=== PATIENT | female | born 1970 | race American Indian/Alaskan Native ===

== ENCOUNTER 2017-02-09 14:35 | Inpatient (IN) | payer MEDICARE, OTHER ==
[2017-02-09 15:18] VITALS: BMI 43.2
--- NOTE | 2017-02-09 15:29 | ED PDOC ---
Arrival/HPI - General Chief Complaint: Cough, Cold, Congestion Time Seen by Provider: 02/09/17 14:36 Historian: Patient - History of Present Illness Narrative History of Present Illness (Text): 02/09/17 15:22 46 y/o female, pmh including htn/hyperlipidemia/dm/asthma, nkda, c/o cough on and off x 3 weeks. Pt. stated that she has chronic asthma, been coughing on and off for the past 3 weeks, completed 1 course of z-pack, scheduled to see the brick tender but not until next week, coughing been more severe for the past 3 days, 2 episodes of bloody stain phelgm but resolved today, no night sweat, no dizziness, no chest pain or palpitation, no recent traveling for the past 4 weeks, no other medical or psychological complaints. Past Medical History - Provider Review Nursing Documentation Reviewed: Yes - Infectious Disease Hx of Infectious Diseases: None - Cardiac Hx Cardiac Disorders: No Hx Angina: No Hx Cardiac Arrhythmia: No Hx Circulatory Problems: No Hx Congestive Heart Failure: No Hx Heart Murmur: No Hx Heart Transplant: No Hx Hypertension: No Hx Internal Defibrillator: No Hx Mitral Valve Prolapse: No Hx Pacemaker: No Hx Peripheral Edema: No Hx Peripheral Vascular Disease: No - Pulmonary Hx Respiratory Disorders: Yes Hx Asthma: Yes Hx Bronchitis: Yes Hx Chronic Obstructive Pulmonary Disease (COPD): No Hx Emphysema: No Hx Pneumonia: No Hx Respiratory Aspiration: No Hx Respiratory Tract Infection: No Hx Sleep Apnea: No Hx Tuberculosis: No - Neurological Hx Neurological Disorder: No Hx Alzheimer's Disease: No HX Cerebrovascular Accident: No Hx Dementia: No Hx Dizziness: No Hx Meningitis: No Hx Migraine: Yes Hx Parkinson's Disease: No Hx Seizures: No Hx Transient Ischemic Attacks (TIA): No - HEENT Hx HEENT Disorder: No Hx Blind: No Hx Cataracts: No Hx Deafness: No Hx Difficulty Chewing: No Hx Epistaxis: No Hx Glaucoma: No Hx Macular Degeneration: No - Renal Hx Renal Disorder: No Hx Dialysis: No Hx Kidney Stones: No Hx Neurogenic Bladder: No Hx Pyelonephritis: No Hx Renal Cancer: No Hx Renal Failure: No - Endocrine/Metabolic Hx Endocrine Disorders: No Hx Adrenal Cancer: No Hx Diabetes Insipidus: No Hx Diabetes Mellitus Type 1: No Hx Diabetes Mellitus Type 2: Yes Hx Hyperthyroidism: No Hx Hypothyroidism: No Hx Systemic Lupus Erythematosus: Yes - Hematological/Oncological Hx Blood Disorders: No Hx AIDS: No Hx Anemia: No Hx Cancer: No Hx Chemotherapy: No Hx Cirrhosis: No Hx Hemophilia: No Hx Hepatitis A: No Hx Hepatitis B: No Hx Hepatitis C: No Hx Metastasis: No Hx Shingles: No Hx Sickle Cell Disease: No Hx Unexplained Bleeding: No - Integumentary Hx Dermatological Disorder: No Hx Basal Cell Carcinoma: No Hx Eczema: No Hx Melanoma: No Hx Psoriasis: No Hx Squamous Cell Carcinoma: No - Musculoskeletal/Rheumatological Hx Musculoskeletal Disorders: No Hx Arthritis: No Hx Back Pain: Yes Hx Degenerative Joint Disease: Yes Hx Falls: Yes Hx Fractures: No Hx Gout: No Hx Herniated Disk: No Hx Myasthenia Gravis: No Hx Osteoarthritis: No Hx Osteomyelitis: No Hx Osteoporosis: No Hx Rhabdomyolysis: No Hx Spinal Stenosis: Yes Hx Unsteady Gait: No - Gastrointestinal Hx Gastrointestinal Disorders: No Hx Colostomy: No Hx Crohn's Disease: No Hx Diverticulitis: No Hx Gall Bladder Disease: No Hx Gastroesophageal Reflux: No Hx Ileostomy: No Hx Liver Failure: No Hx Pancreatitis: No HX Swallowing Problems: No - Genitourinary/Gynecological Hx Genitourinary Disorders: No Hx Hematuria: No Hx Incontinence: No Hx Sexually Transmitted Diseases: No - Psychiatric Hx Psychophysiologic Disorder: No Hx Anxiety: No Hx Bipolar Disorder: No Hx Depression: No Hx Emotional Abuse: No Hx Hallucinations: No Hx Panic Disorder: No Hx Post Traumatic Stress Disorder: No Hx Psychosis: No Hx Physical Abuse: No Hx Schizophrenia: No Hx Sexual Abuse: No Hx Substance Use: No - Surgical History Hx Amputation: No Hx Appendectomy: No Hx Cardiac Catheterization: No Hx Cholecystectomy: No Hx Coronary Stent: No Hx Gastric Bypass Surgery: No Hx Hysterectomy: No Hx Joint Replacement: No Hx Kidney Transplant: No Hx Liver Transplant: No Hx Mastectomy: No Hx Musculoskeletal Surgery: No Hx Open Heart Surgery: No Hx Orthopedic Surgery: No Hx Splenectomy: No Hx Valve Replacement: No Other/Comment: ectopic with D&C - Anesthesia Hx Anesthesia: Yes Hx Anesthesia Reactions: No Family/Social History - Physician Review Nursing Documentation Reviewed: Yes Family/Social History: Unknown Family HX Smoking Status: Never Smoked Hx Alcohol Use: Yes Hx Substance Use: No Allergies/Home Meds Allergies/Adverse Reactions: Allergies No Known Allergies Allergy (Verified 02/09/17 15:06) Home Medications: Home Meds Medication Instructions Recorded Confirmed Albuterol/Ipratropium [Combivent 1 puff IH QID PRN 06/09/16 02/09/17 Respimat] Amitriptyline HCl [Amitriptyline 100 mg PO DAILY 06/09/16 02/09/17 HCl] Atorvastatin [Lipitor] 20 mg PO HS 06/09/16 02/09/17 Azilsartan Medoxomil [Edarbi] 80 mg PO DAILY 06/09/16 02/09/17 Colchicine [Colcrys] 0.6 mg PO DAILY 06/09/16 02/09/17 Diclofenac Sodium [Voltaren] 1 % TOP TID 06/09/16 02/09/17 Dulaglutide [Trulicity] 1.5 mg SC QWK 06/09/16 02/09/17 Empagliflozin [Jardiance] 10 mg PO DAILY 06/09/16 02/09/17 Furosemide [Lasix] 40 mg PO DAILY 06/09/16 02/09/17 Gabapentin Enacarbil [Horizant] 600 mg PO BID 06/09/16 02/09/17 Hydroxychloroquine Sulfate 200 mg PO BID 06/09/16 02/09/17 Insulin Glargine,Hum.rec.anlog 300 unit SQ DIN 06/09/16 02/09/17 [Issaculeidy Mcdonald] Insulin Lispro [Humalog Kwikpen 20 units INJ DAILY 06/09/16 02/09/17 U-100] Linagliptin/Metformin HCl 1 tab PO BID 06/09/16 02/09/17 [Jentadueto 2.5 mg-1000 mg] Olopatadine HCl [Pazeo] 0.7 drop BOTHEYES DAILY 06/09/16 02/09/17 Pyridoxine HCl (Vitamin B6) 25 mg PO DAILY 06/09/16 02/09/17 [B-Roseanne] Stiolto Respimat Inhal [place] 2.5 mcg INH DAILY 06/09/16 02/09/17 acetaZOLAMIDE [Acetazolamide] 500 mg PO BID 06/09/16 02/09/17 diltiaZEM CD [Cardizem CD] 120 mg PO DAILY 06/09/16 02/09/17 Review of Systems - Review of Systems Constitutional: absent: Fatigue, Fevers Eyes: absent: Vision Changes ENT: absent: Voice Changes, Sore Throat, Rhinorrhea Respiratory: Cough, Sputum. absent: Wheezing Cardiovascular: absent: Chest Pain Gastrointestinal: absent: Abdominal Pain, Diarrhea, Nausea, Vomiting Skin: absent: Rash, Pruritis, Skin Lesions, Laceration, Abscess, Ulcer, Cellulitis Neurological: absent: Headache, Dizziness, Focal Weakness, Gait Changes Physical Exam Vital Signs Reviewed: Yes Vital Signs Temp Pulse Resp BP Pulse Ox 02/09/17 18:22 105 H 18 118/71 100 02/09/17 16:23 109 H 18 121/79 100 02/09/17 15:06 98.7 F 109 H 21 122/88 96 Temperature: Afebrile Blood Pressure: Normal Pulse: Tachycardic Appearance: Positive for: Well-Appearing, Non-Toxic, Comfortable Mental Status: Positive for: Alert and Oriented X 3 - Systems Exam Head: Present: Atraumatic, Normocephalic Pupils: Present: PERRL Extroacular Muscles: Present: EOMI Conjunctiva: Present: Normal Mouth: Present: Moist Mucous Membranes Pharnyx: No: ERYTHEMA, EXUDATE, TONSILS ENLARGED, Peritonsilar Swelling, Strider , Soft Palate/Uvular Edema Nose (Internal): Present: Normal Inspection, No Active Bleeding, Moist. No: Rhinorrhea, Septal Hematoma, Epistaxis Neck: Present: Normal Range of Motion, Trachea Midline. No: Meningeal Signs, MIDLINE TENDERNESS, Paraspinal Tenderness, Lymphadenopathy Respiratory/Chest: Present: Clear to Auscultation, Good Air Exchange. No: Respiratory Distress, Accessory Muscle Use, Wheezes, Decreased Breath Sounds, Rales, Retracting, Rhonchi, Tachypneic, Tender to Palpation, Other Cardiovascular: Present: Regular Rate and Rhythm, Normal S1, S2, Other (mild 1+ pedal edema bilateral regions noted on the anterior bentley. ). No: Murmurs Abdomen: Present: Normal Bowel Sounds. No: Tenderness, Distention, Peritoneal Signs Back: Present: Normal Inspection Upper Extremity: Present: Normal Inspection. No: Cyanosis, Edema Lower Extremity: Present: Normal Inspection. No: Edema Neurological: Present: GCS=15, Speech Normal, Motor Func Grossly Intact, Gait Normal, Memory Normal Skin: Present: Warm, Dry, Normal Color. No: Rashes Psychiatric: Present: Alert, Oriented x 3, Normal Insight, Normal Concentration Medical Decision Making ED Course and Treatment: 02/09/17 15:35 -labs/bnp/dimer -chest xray -ekg -fire adjuster -observe and reassess 02/09/17 18:25 -EKG: Sinus Tachycardia @ 110 BPM, no ST elevation or depression, no T wave inversion acutely noted. -Labs are non-significant except WBC 12.6, BNP 1330, D-Dimer 2.02, LFT elevation noted. I ordered CTA. -CTA show no PE but there is acute pneumonia with bilateral trace pleural effusion. -IV rocephine and azithromycin, blood cultures ordered. -I discussed with the patient and Dr. Nunez about the results, agreed on the inpatient admission. -Hospitalist paged, Dr. Nunez will put in the admission. 02/09/17 19:00 -I discussed the case/labs/radiology studies with the medical affairs specialist Dr. Dirk Cardozo and Dr. Reyes (house doctor), they will evaluate and follow up the care for the patient. 02/09/17 19:32 -Due to the tachycardic, pt. will be placed as remote tele. - Lab Interpretations Lab Results: 02/09/17 15:39 02/09/17 16:43 Lab Results 02/09/17 16:43: Sodium 143, Potassium 4.3, Chloride 106, Carbon Dioxide 24, Anion Gap 17, BUN 12, Creatinine 1.1, Est GFR ( Amer) > 60, Est GFR (Non- Af Amer) 53, Random Glucose 229 H, Calcium 9.7, Total Bilirubin 1.1, AST 52 H, ALT 72 H, Alkaline Phosphatase 143 H, NT-Pro-B Natriuret Pep 1330 H, Total Protein 7.4, Albumin 3.8, Globulin 3.6, Albumin/Globulin Ratio 1.1 02/09/17 15:39: D-Dimer, Quantitative 2.02 H 02/09/17 15:39: WBC 12.6 H D, RBC 5.37, Hgb 13.5, Hct 40.5, MCV 75.4 L, MCH 25.1 , MCHC 33.3, RDW 14.5, Plt Count 415, MPV 9.7, Gran % 64.8, Lymph % (Auto) 29.3 , [place] % (Auto) 5.1, Eos % (Auto) 0.6 L, Baso % (Auto) 0.2, Gran # 8.18 H, Lymph # 3.7 H, [place] # 0.6, Eos # 0.1, Baso # 0.03 I have reviewed the lab results: Yes Interpretation: Abnormal lab values (WBC 12.6, BNP 1330, D-Dimer 2.02, LFT elevation noted.) - RAD Interpretation Radiology Orders: 02/09/17 16:18 ANGIO CHEST PE PROTOCOL [CT] Stat PROCEDURE: CT Chest with contrast (Pulmonary Angiogram) HISTORY: Cough, tachycardia and elevated D-dimer. Hemoptysis COMPARISON: None available. TECHNIQUE: Axial computed tomography images were obtained of the chest in the pulmonary arterial phase of enhancement. Coronal and sagittal reformatted images were created and reviewed. Maximum intensity projection (MIP) reconstructed images in the following planes: Intravenous contrast dose: 96 cc Visipaque 320. Mean Hounsfield unit values in the main pulmonary artery: 418.40 Radiation dose: Total exam DLP = 860.13 mGy-cm. This CT exam was performed using one or more of the following dose reduction techniques: Automated exposure control, adjustment of the mA and/or kV according to patient size, and/or use of iterative reconstruction technique. FINDINGS: PULMONARY ARTERIES: Unremarkable. No pulmonary embolism. AORTA: No acute findings. No thoracic aortic aneurysm. LUNGS: Right lower lobe alveolar infiltrate. Likely acute pneumonia. PLEURAL SPACES: Trace bilateral pleural effusions. HEART: Unremarkable. No cardiomegaly. No significant pericardial effusion. LYMPH NODES: No lymphadenopathy. BONES, CHEST WALL: Unremarkable. No fracture or destructive lesion OTHER FINDINGS: Unremarkable. IMPRESSION: Unremarkable CT pulmonary angiogram. No pulmonary embolus. Segmental infiltrate right lower lobe consistent with acute pneumonia. Trace bilateral pleural effusions. Sql Developer Dba: Radiologist - EKG Interpretation EKG Interpretation (Text): 02/09/17 15:52 Sinus Tachycardia @ 110 BPM, no ST elevation or depression, no T wave inversion acutely noted. Interpreted by ED Physician: Yes Type: 12 lead EKG Comparison: Com.w/previous EKG - Medication Orders Current Medication Orders: Discontinued Medications Ceftriaxone Sodium (Rocephin 1 Gram Ivpb) 1 gm in 100 mls @ 200 mls/hr IVPB STAT STA PRN Reason: Protocol Stop: 02/09/17 18:22 Last Admin: 06/01/17 18:22 Dose: 200 mls/hr Azithromycin (Zithromax 500mg In Ns) 500 mg in 250 mls @ 167 mls/hr IVPB STAT STA PRN Reason: Protocol Stop: 02/09/17 19:22 Iodixanol (Visipaque 320 Mg/Ml 100 Ml) Confirm Administered Dose 100 ml IV .[facility]- [facility] ONE Stop: 02/09/17 17:17 - PA / ACCOUNTANT TAX / Resident Statement MD/DO has reviewed & agrees with the documentation as recorded. Disposition/Present on Arrival - Present on Arrival Any Indicators Present on Arrival: No History of DVT/PE: No History of Uncontrolled Diabetes: No Urinary Catheter: No History of Decub. Ulcer: No History Surgical Site Infection Following: None - Disposition Have Diagnosis and Disposition been Completed?: Yes Diagnosis: Pneumonia, Pleural effusion, Elevated brain natriuretic peptide (BNP) level Disposition: HOSPITALIZED Disposition Time: 18:02 Patient Plan: Admission, Observation, Telemetry Patient Problems: Current Active Problems Problem Status Onset Pneumonia Acute Pleural effusion Acute Elevated brain natriuretic peptide (BNP) level Acute Condition: STABLE
[2017-02-09 15:46] LABS: ADD MANUAL DIFF? NO
[2017-02-09 15:56] LABS: BASO # 0.03 K/mm3 (0.0-2.0); BASO % 0.2 % (0.0-3.0); EOS # 0.1 (0.0-0.7); EOS % 0.6 % (1.5-5.0); GRAN # 8.18 (1.4-6.5); GRAN % 64.8 % (50.0-68.0); HEMATOCRIT 40.5 % (36.0-48.0); LYMPH # 3.7 (1.2-3.4); LYMPH % 29.3 % (22.0-35.0); MEAN CELL VOLUME 75.4 fL (80.0-105.0); MEAN CORPUSCULAR HEMOGLOBIN 25.1 pg (25.0-35.0); MEAN CORPUSCULAR HGB CONC 33.3 g/dl (31.0-37.0); MEAN PLATELET VOLUME 9.7 fl (7.0-11.0); MONO # 0.6 (0.1-0.6); MONO % 5.1 % (1.0-6.0); PLATELET COUNT 415 10^3/uL (120.0-450.0); RED CELL DISTRIBUTION WIDTH 14.5 % (11.5-14.5); WHITE BLOOD COUNT 12.6 10^3/ul (4.5-11.0)
[2017-02-09 17:00] LABS: ALB/GLOB RATIO 1.1 (1.1-1.8); ALKALINE PHOSPHATASE 143 U/L (38-133); ALT/SGPT 72 U/L (7-56); AST/SGOT 52 U/L (15-39); BILIRUBIN,TOTAL 1.1 mg/dL (0.2-1.3); BLOOD UREA NITROGEN 12 mg/dL (7-21); CALCIUM 9.7 mg/dL (8.4-10.5); CARBON DIOXIDE 24 mmol/L (21-33); CHLORIDE 106 mmol/L (98-107); GFR AFRICAN-AMERICAN > 60; GLUCOSE,RANDOM 229 mg/dL (70-110); POTASSIUM 4.3 mmol/L (3.6-5.0); SODIUM 143 mmol/L (132-148); TOTAL PROTEIN 7.4 g/dL (5.8-8.3)
[2017-02-09] MEDS ORDERED: Iodixanol 320 MG/ML 100 ML BOTTLE IV ONE (17:16)
--- NOTE | 2017-02-09 17:51 | CT ---
PROCEDURE: CT Chest with contrast (Pulmonary Angiogram) HISTORY: Cough, tachycardia and elevated D-dimer. Hemoptysis COMPARISON: None available. TECHNIQUE: Axial computed tomography images were obtained of the chest in the pulmonary arterial phase of enhancement. Coronal and sagittal reformatted images were created and reviewed. Maximum intensity projection (MIP) reconstructed images in the following planes: Intravenous contrast dose: 96 cc Visipaque 320. Mean Hounsfield unit values in the main pulmonary artery: 418.40 Radiation dose: Total exam DLP = 860.13 mGy-cm. This CT exam was performed using one or more of the following dose reduction techniques: Automated exposure control, adjustment of the mA and/or kV according to patient size, and/or use of iterative reconstruction technique. FINDINGS: PULMONARY ARTERIES: Unremarkable. No pulmonary embolism. AORTA: No acute findings. No thoracic aortic aneurysm. LUNGS: Right lower lobe alveolar infiltrate. Likely acute pneumonia. PLEURAL SPACES: Trace bilateral pleural effusions. HEART: Unremarkable. No cardiomegaly. No significant pericardial effusion. LYMPH NODES: No lymphadenopathy. BONES, CHEST WALL: Unremarkable. No fracture or destructive lesion OTHER FINDINGS: Unremarkable. IMPRESSION: Unremarkable CT pulmonary angiogram. No pulmonary embolus. Segmental infiltrate right lower lobe consistent with acute pneumonia. Trace bilateral pleural effusions.
[2017-02-09] MEDS ORDERED: cefTRIAXone 1 gm 1 GM/100 ML BAG IVPB STA (17:53)
[2017-02-09] MEDS ORDERED: Azithromycin 500MG/NS 250ml 500 MG/250 ML BAG IVPB STA (17:53)
--- NOTE | 2017-02-09 20:51 | CP.PCM.HP ---
<Dirk Cardozo - Last Filed: 02/10/17 00:07> History of Present Illness - History of Present Illness History of Present Illness: 46 year old female with past medical history of hypertension, diabetes, hyperlipidemia, asthma, SLE, and spinal stenosis presents to [facility] with hemoptysis. Patient reports having nonproductive coughs with clear sputum started 3 weeks ago. Patient went to see her PMD and finished a course of azithromycin without improvement. Patient's cough became progressively worse in the past 2 days where she start coughing up bloody stain phelgm once yesterday and once today. Patient also report to have SANTOS, shortness of breath, chest tightness, nausea and vomiting associated with the coughs. Patient states this does not feel like her asthma is acting up and her asthmatic medications did not alleviate her symptoms. No prior history of the same. Patient was last at [facility] for sepsis on 05/2016. Patient denies weakness, night sweats, fever, chills, chest pain, abdominal pain, diarrhea, urinary symptoms, sick contacts, or recent travels. PMD: Dr. Miles Pharmacy: [facility] [phone] (please confirm home meds during daytime ) PMHx: hypertension, diabetes, hyperlipidemia, asthma, SLE, migraine SANTOS, uterine fibroids and spinal stenosis PSHx: ectopic s/p D&C 1993 Allergy: NKDA Social Hx: admits to social alcohol use, denies tobacco or other drug use Family Hx: mother-DM, grandmother-breast cancer Present on Admission - Present on Admission Any Indicators Present on Admission: No History of DVT/PE: No History of Uncontrolled Diabetes: No Review of Systems - Constitutional Constitutional: As Per HPI. absent: Chills, Fatigue, Fever, Night Sweats - EENT Eyes: As Per HPI, Blind Spots. absent: Change in Vision, Loss of Vision Ears: As Per HPI. absent: Dizziness Nose/Mouth/Throat: As Per HPI. absent: Nasal Congestion, Dry Mouth - Cardiovascular Cardiovascular: As Per HPI. absent: Chest Pain, Chest Pain at Rest, Chest Pain with Activity - Respiratory Respiratory: As Per HPI, Cough, Dyspnea, Hemoptysis - Gastrointestinal Gastrointestinal: As Per HPI, Nausea, Vomiting. absent: Abdominal Pain, Diarrhea - Genitourinary Genitourinary: As Per HPI. absent: Urinary Frequency, Urinary Hesitance, Urinary Urgency - Musculoskeletal Musculoskeletal: As Per HPI. absent: Deformity, Numbness, Tingling - Integumentary Integumentary: As Per HPI. absent: Erythema, Pruritus - Neurological Neurological: As Per HPI. absent: Dizziness, Numbness, Focal Weakness, Weakness - Psychiatric Psychiatric: As Per HPI. absent: Confusion - Endocrine Endocrine: As Per HPI - Hematologic/Lymphatic Hematologic: As Per HPI Past Patient History - Infectious Disease Hx of Infectious Diseases: None - Past Social History Smoking Status: Never Smoked - CARDIAC Hx Cardiac Disorders: No Hx Angina: No Hx Cardia Arrhythmia: No Hx Circulatory Problems: No Hx Congestive Heart Failure: No Hx Heart Murmur: No Hx Heart Transplant: No Hx Hypertension: No Hx Internal Defibrillator: No Hx Mitral Valve Prolapse: No Hx Pacemaker: No Hx Peripheral Edema: No Hx Peripheral Vascular Disease: No - PULMONARY Hx Respiratory Disorders: Yes Hx Asthma: Yes Hx Bronchitis: Yes Hx Chronic Obstructive Pulmonary Disease (COPD): No Hx Emphysema: No Hx Pneumonia: No Hx Respiratory Aspiration: No Hx Respiratory Tract Infection: No Hx Sleep Apnea: No Hx Tuberculosis: No - NEUROLOGICAL Hx Neurological Disorder: No Hx Alzheimer's Disease: No HX Cerebrovascular Accident: No Hx Dementia: No Hx Dizziness: No Hx Meningitis: No Hx Migraine: Yes Hx Parkinson's Disease: No Hx Seizures: No Hx Transient Ischemic Attacks (TIA): No - HEENT Hx HEENT Problems: No Hx Blind: No Hx Cataracts: No Hx Deafness: No Hx Difficulty Chewing: No Hx Epistaxis: No Hx Glaucoma: No Hx Macular Degeneration: No - RENAL Hx Chronic Kidney Disease: No Hx Dialysis: No Hx Kidney Stones: No Hx Neurogenic Bladder: No Hx Pyelonephritis: No Hx Renal (Kidney) Cancer: No Hx Renal Failure: No - ENDOCRINE/METABOLIC Hx Endocrine Disorders: No Hx Adrenal Cancer: No Hx Diabetes Insipidus: No Hx Diabetes Mellitus Type 1: No Hx Diabetes Mellitus Type 2: Yes Hx Hyperthyroidism: No Hx Hypothyroidism: No Hx Systemic Lupus Erythematosus: Yes - HEMATOLOGICAL/ONCOLOGICAL Hx Blood Disorders: No Hx AIDS: No Hx Anemia: No Hx Cancer: No Hx Chemotherapy: No Hx Cirrhosis: No Hx Hemophilia: No Hx Hepatitis A: No Hx Hepatitis B: No Hx Hepatitis C: No Hx Metastesis: No Hx Shingles: No Hx Sickle Cell Disease: No Hx Unexplained Bleeding: No - INTEGUMENTARY Hx Dermatological Problems: No Hx Basil Cell: No Hx Eczema: No Hx Melanoma: No Hx Psoriasis: No Hx Squamous Cell: No - MUSCULOSKELETAL/RHEUMATOLOGICAL Hx Musculoskeletal Disorders: No Hx Arthritis: No Hx Back Pain: Yes Hx Degenerative Joint Disease: Yes Hx Falls: Yes Hx Fractures: No Hx Gout: No Hx Herniated Disk: No Hx Myasthenia Gravis: No Hx Osteoarthritis: No Hx Osteomyelitis: No Hx Osteoporosis: No Hx Rhabdomyolysis: No Hx Spinal Stenosis: Yes Hx Unsteady Gait: No - GASTROINTESTINAL Hx Gastrointestinal Disorders: No Hx Colostomy: No Hx Crohn's Disease: No Hx Diverticulitis: No Hx Gall Bladder Disease: No Hx Gastroesophageal Reflux: No Hx Ileostomy: No Hx Liver Failure: No Hx Pancreatitis: No HX Swallowing Problems: No - GENITOURINARY/GYNECOLOGICAL Hx Genitourinary Disorders: No Hx Hematuria: No Hx Incontinence: No Hx Sexually Transmitted Disorders: No - PSYCHIATRIC Hx Psychophysiologic Disorder: No Hx Anxiety: No Hx Bipolar Disorder: No Hx Depression: No Hx Emotional Abuse: No Hx Hallucinations: No Hx Panic Symptoms: No Hx Post Traumatic Stress Disorder: No Hx Psychosis: No Hx Physical Abuse: No Hx Schizophrenia: No Hx Sexual Abuse: No Hx Substance Use: No - SURGICAL HISTORY Hx Amputation: No Hx Appendectomy: No Hx Cardiac Catheterization: No Hx Cholecystectomy: No Hx Coronary Stent: No Hx Gastric Bypass Surgery: No Hx Hysterectomy: No Hx Joint Replacement: No Hx Kidney Transplant: No Hx Liver Transplant: No Hx Mastectomy: No Hx Musculoskeletal Surgery: No Hx Open Heart Surgery: No Hx Orthopedic Surgery: No Hx Splenectomy: No Hx Valve Replacement: No Other/Comment: ectopic with D&C - ANESTHESIA Hx Anesthesia: Yes Hx Anesthesia Reactions: No Meds Allergies/Adverse Reactions: Allergies Allergy/AdvReac Type Severity Reaction Status Date / Time No Known Allergies Allergy Verified 02/09/17 20:56 Physical Exam - Constitutional Appears: Non-toxic, No Acute Distress - Head Exam Head Exam: ATRAUMATIC, NORMAL INSPECTION, NORMOCEPHALIC - Eye Exam Eye Exam: EOMI, Normal appearance, PERRL - ENT Exam ENT Exam: Mucous Membranes Moist - Neck Exam Neck exam: Positive for: Normal Inspection - Respiratory Exam Respiratory Exam: Clear to Auscultation Bilateral, NORMAL BREATHING PATTERN. absent: Respiratory Distress - Cardiovascular Exam Cardiovascular Exam: REGULAR RHYTHM, RRR, +S1, +S2 - GI/Abdominal Exam GI & Abdominal Exam: Normal Bowel Sounds, Soft. absent: Tenderness - Extremities Exam Extremities exam: Positive for: normal capillary refill, pedal edema (trace bilateral LE edema), pedal pulses present - Back Exam Back exam: NORMAL INSPECTION - Neurological Exam Neurological exam: Alert, CN II-XII Intact, Oriented x3 - Psychiatric Exam Psychiatric exam: Normal Affect, Normal Mood - Skin Skin Exam: Dry, Warm Results - Vital Signs Recent Vital Signs: Last Vital Signs Temp 98.7 F 02/09/17 15:06 Pulse 105 H 02/09/17 18:22 Resp 18 02/09/17 18:22 BP 118/71 02/09/17 18:22 Pulse Ox 100 02/09/17 18:22 - Labs Result Diagrams: 02/09/17 15:39 02/09/17 16:43 Labs: Laboratory Results - last 24 hr 02/09/17 02/09/17 02/09/17 15:39 15:39 16:43 WBC 12.6 H D RBC 5.37 Hgb 13.5 Hct 40.5 MCV 75.4 L MCH 25.1 MCHC 33.3 RDW 14.5 Plt Count 415 MPV 9.7 Gran % 64.8 Lymph % (Auto) 29.3 [place] % (Auto) 5.1 Eos % (Auto) 0.6 L Baso % (Auto) 0.2 Gran # 8.18 H Lymph # 3.7 H [place] # 0.6 Eos # 0.1 Baso # 0.03 D-Dimer, Quantitative 2.02 H Sodium 143 Potassium 4.3 Chloride 106 Carbon Dioxide 24 Anion Gap 17 BUN 12 Creatinine 1.1 Est GFR ( Amer) > 60 Est GFR (Non-Af Amer) 53 Random Glucose 229 H Calcium 9.7 Total Bilirubin 1.1 AST 52 H ALT 72 H Alkaline Phosphatase 143 H NT-Pro-B Natriuret Pep 1330 H Total Protein 7.4 Albumin 3.8 Globulin 3.6 Albumin/Globulin Ratio 1.1 Assessment & Plan - Assessment and Plan (Free Text) Assessment: 46 year old female with past medical history of hypertension, diabetes, hyperlipidemia, asthma, SLE, migraine SANTOS, uterine fibroids and spinal stenosis presents with hemoptysis Plan: Community acquired pneumonia -Leukocytosis at 12.6, afebrile -D-dimer elevated at 2.02 -CTA showed right lower lobe acute pneumonia, no evidence of PE -Start Rocephin and Azthromycin IV -Aspiration precaution -O2 via NC prn -Follow up blood and sputum cultures -Follow up microbe antigens -ID consulted Dr. Sloan help appreciated Transaminitis -AST/ALT in ED 53/72 -follow up hepatitis panel -follow up AM labs Asthma -Resume Albuterol/ipratropium IH prn HLD -Resume lipitor 20mg po Diabetes -ISS -FS ACHS -Consistent carb diet -Confirm home meds with pharmacy in the AM SLE -Resume Hydroxychloroquine Prophylactic measures -Protonix for GI ppx -Lovenox for DVT ppx -Motrin for pain and fever <Sean Reyes - Last Filed: 02/10/17 02:44> Results - Vital Signs Recent Vital Signs: Last Vital Signs Temp 98.7 F 02/10/17 00:32 Pulse 107 H 02/10/17 02:00 Resp 20 02/10/17 00:32 BP 120/87 02/10/17 00:32 Pulse Ox 98 02/10/17 00:32 - Labs Result Diagrams: 02/09/17 15:39 02/09/17 16:43 Labs: Laboratory Results - last 24 hr 02/09/17 21:44 POC Glucose (mg/dL) 226 H Attending/Attestation - Attestation I have personally seen and examined this patient.: Yes I have fully participated in the care of the patient.: Yes I have reviewed all pertinent clinical information: Yes Notes (Text): 02/10/17 02:43 Patient was seen when she was in -02. Agree with history, physical examination , assessment and plan.
[2017-02-09] MEDS: Insulin Reg-MEDIUM-Coverage SC SCH (22:00)
[2017-02-09] MEDS ORDERED: Pneumococcal 23-Valent Vaccine IM ONE (23:03)
--- NOTE | 2017-02-10 00:59 | CARD ---
APPROVED REPORT EKG Measurement Heart [id number] <Conclusion> Sinus tachycardia Inferior infarct, age undetermined Cannot rule out Anterior infarct, age undetermined Abnormal ECG
[2017-02-10] MEDS ORDERED: Albuterol-Ipratrop 3 mg / 0.5 (3 ml) UD IH PRN (02:00)
[2017-02-10] MEDS: Pantoprazole 40 mg EC Tab PO SCH (06:04)
[2017-02-10] MEDS: Insulin Reg-MEDIUM-Coverage SC SCH ×4 (08:27→22:54)
[2017-02-10] MEDS: cefTRIAXone 1 gm 1 GM/100 ML BAG IVPB SCH (09:16)
[2017-02-10] MEDS: Azithromycin 500MG/NS 250ml 500 MG/250 ML BAG IVPB SCH (09:17)
[2017-02-10 09:36] LABS: ADD MANUAL DIFF? NO
[2017-02-10 09:40] LABS: BASO # 0.06 K/mm3 (0.0-2.0); BASO % 0.5 % (0.0-3.0); EOS # 0.1 (0.0-0.7); EOS % 0.8 % (1.5-5.0); GRAN % 54.5 % (50.0-68.0); HEMATOCRIT 40.4 % (36.0-48.0); LYMPH # 4.8 (1.2-3.4); LYMPH % 36.6 % (22.0-35.0); MEAN CORPUSCULAR HEMOGLOBIN 24.3 pg (25.0-35.0); MEAN CORPUSCULAR HGB CONC 32.4 g/dl (31.0-37.0); MEAN PLATELET VOLUME 9.8 fl (7.0-11.0); MONO % 7.6 % (1.0-6.0); PLATELET COUNT 414 10^3/uL (120.0-450.0); RED CELL DISTRIBUTION WIDTH 14.9 % (11.5-14.5); WHITE BLOOD COUNT 13.2 10^3/ul (4.5-11.0)
[2017-02-10 09:44] LABS: ALKALINE PHOSPHATASE 144 U/L (38-133); ALT/SGPT 66 U/L (7-56); AST/SGOT 44 U/L (15-39); BILIRUBIN,TOTAL 1.5 mg/dL (0.2-1.3); BLOOD UREA NITROGEN 13 mg/dL (7-21); CALCIUM 9.5 mg/dL (8.4-10.5); CARBON DIOXIDE 21 mmol/L (21-33); CHLORIDE 103 mmol/L (98-107); GFR AFRICAN-AMERICAN > 60; GLUCOSE,RANDOM 173 mg/dL (70-110); POTASSIUM 3.6 mmol/L (3.6-5.0); SODIUM 136 mmol/L (132-148); TOTAL PROTEIN 7.5 g/dL (5.8-8.3)
[2017-02-10] MEDS ORDERED: Enoxaparin 30 mg Syringe SC SCH (10:00)
[2017-02-10] MEDS: DICLOFENAC SODIUM 1% TOP SCH ×2 (12:21→14:52)
--- NOTE | 2017-02-10 15:42 | CP.PCM.CON ---
History of Present Illness - History of Present Illness History of Present Illness: 46 y/o F who presented w/ 4 day hx of SOB, chest heaviness and cough. 2 days earlier sh ehad some blood tinged sputum and further SOB. She also claims that this feeling is not like her previous asthma attacks. The patient has been well controlled asthmatic and also been on medications for her LUPUS without any further worsening. Review of Systems - Constitutional Constitutional: Fatigue, Lethargy - EENT Eyes: absent: As Per HPI, Blind Spots, Blurred Vision, Change in Vision, Decreased Night Vision, Diplopia, Discharge, Dry Eye, Exophthalmos, Floaters, Irritation, Itchy Eyes, Loss of Peripheral Vision, Pain, Photophobia, Requires Corrective Lenses, Sees Flashes, Spots in Vision, Tunnel Vision, Other Visual Disturbances, Loss of Vision, Other Ears: absent: As Per HPI, Decreased Hearing, Ear Discharge, Ear Pain, Tinnitus, Abnormal Hearing, Disequilibrium, Dizziness, Other Nose/Mouth/Throat: absent: As Per HPI, Epistaxis, Nasal Congestion, Nasal Discharge, Nasal Obstruction, Nasal Trauma, Nose Pain, Post Nasal Drip, Sinus Pain, Sinus Pressure, Bleeding Gums, Change in Voice, Dental Pain, Dry Mouth, Dysphagia, Halitosis, Hoarsness, Lip Swelling, Mouth Lesions, Mouth Pain, Odynophagia, Sore Throat, Throat Swelling, Tongue Swelling, Facial Pain, Neck Pain, Neck Mass, Other - Breasts Breasts: absent: As Per HPI, Change in Shape, Mass, Pain, Nipple Discharge, Nipple Inversion, Skin Changes, Swelling, Other - Cardiovascular Cardiovascular: Dyspnea on Exertion, Lightheadedness, Orthopnea - Respiratory Respiratory: Cough - Gastrointestinal Gastrointestinal: absent: As Per HPI, Abdominal Pain, Belching, Bloating, Change in Bowel Habits, Change in Stool Character, Coffee Ground Emesis, Constipation, Cramping, Diarrhea, Dyspepsia, Dysphagia, Early Satiety, Excessive Flatus, Fecal Incontinence, Heartburn, Hematemesis, Hematochezia, Loose Stools, Melena, Nausea, Odynophagia, Temesmus, Vomiting, Other - Genitourinary Genitourinary: absent: As Per HPI, Change in Urinary Stream, Difficulty Urinating, Dysuria, Flank Pain, Hematuria, Pyuria, Nocturia, Urinary Incontinence, Urinary Frequency, Urinary Hesitance, Urinary Urgency, Voiding Freq/Small Amts, Freq UTI, Hx Renal/Bladder Calculi, Hx /Renal Surgery, Bladder Distension, Other - Reproductive: Female Reproductive:Female: absent: As Per HPI, Amenorrhea, Amenorrhea/ Control, Currently Menstual, Cycle <21 Days, Cycle >35 Days, Cycle Variable, Menses 1-7 Days, Menses >/= 8 Days, Menses Variable, Cycle > 4 Weeks Between, No Menses for 6 Months, Heavy Menses, Light Menses, Normal Menses, Spotting Between Cycles , S/P Hysterectomy, Menopausal, Post Menopausal, Premenarche, Abnormal Vaginal Bleeding, Dysmenorrhea, Dyspareunia, Genital Lesions, Genital Pruritis, Pelvic Pain, Prolapse Symptoms, Sexual Dysfunction, Vaginal Discharge, Vaginal Dryness , Vaginal Odor, Vaginal Pruritis, Other - Menstruation Menstruation: absent: As Per HPI, Amenorrhea, Amenorrhea/ Control, Currently Menstual, Cycle <21 Days, Cycle >35 Days, Cycle Variable, Menses 1-7 Days, Menses >/= 8 Days, Menses Variable, Cycle > 4 Weeks Between, No Menses for 6 Months, Heavy Menses, Light Menses, Normal Menses, Spotting Between Cycles , S/P Hysterectomy, Menopausal, Post Menopausal, Premenarche, Abnormal Vaginal Bleeding, Dysmenorrhea, Other - Musculoskeletal Musculoskeletal: absent: As Per HPI, Abnormal Gait, Arthralgias, Atrophy, Back Pain, Deformity, Joint Swelling, Limited Range of Motion, Loss of Height, Muscle Cramps, Muscle Weakness, Myalgias, Neck Pain, Numbness, Radiating Pain into Limb, Stiffness, Tingling, Other - Integumentary Integumentary: absent: As Per HPI, Acne, Alopecia, Bleeding Lesions, Change in Hair, Change in Nails, Change in Pigmentation, Changing Lesions, Dry Skin, Erythema, Furuncle, Hirsutism, Lesions, New Lesions, Non-Healing Lesions, Photosensitivity, Pruritus, Rash, Skin Pain, Skin Ulcer, Sores, Striae, Swelling , Unusual Bruising, Wounds, Jaundice, Other - Neurological Neurological: absent: As Per HPI, Abnormal Gait, Abnormal Hearing, Abnormal Movements, Abnormal Speech, Behavioral Changes, Burning Sensations, Confusion, Convulsions, Disequilibrium, Dizziness, Numbness, Focal Weakness, Frequent Falls , Headaches, Lack of Coordination, Loss of Vision, Memory Loss, Paresthesias, Radicular Pain, Restless Legs, Sensory Deficit, Syncope, Tingling, Tremor, Vertigo, Weakness, Other Visual Disturbances, Other Past Patient History - Infectious Disease Hx of Infectious Diseases: None - Past Social History Smoking Status: Never Smoked - CARDIAC Hx Cardiac Disorders: No Hx Angina: No Hx Cardia Arrhythmia: No Hx Circulatory Problems: No Hx Congestive Heart Failure: No Hx Heart Murmur: No Hx Heart Transplant: No Hx Hypertension: No Hx Internal Defibrillator: No Hx Mitral Valve Prolapse: No Hx Pacemaker: No Hx Peripheral Edema: No Hx Peripheral Vascular Disease: No - PULMONARY Hx Respiratory Disorders: Yes Hx Asthma: Yes Hx Bronchitis: Yes Hx Chronic Obstructive Pulmonary Disease (COPD): No Hx Emphysema: No Hx Pneumonia: No Hx Respiratory Aspiration: No Hx Respiratory Tract Infection: No Hx Sleep Apnea: No Hx Tuberculosis: No - NEUROLOGICAL Hx Neurological Disorder: No Hx Alzheimer's Disease: No HX Cerebrovascular Accident: No Hx Dementia: No Hx Dizziness: No Hx Meningitis: No Hx Migraine: Yes Hx Parkinson's Disease: No Hx Seizures: No Hx Transient Ischemic Attacks (TIA): No - HEENT Hx HEENT Problems: No Hx Blind: No Hx Cataracts: No Hx Deafness: No Hx Difficulty Chewing: No Hx Epistaxis: No Hx Glaucoma: No Hx Macular Degeneration: No - RENAL Hx Chronic Kidney Disease: No Hx Dialysis: No Hx Kidney Stones: No Hx Neurogenic Bladder: No Hx Pyelonephritis: No Hx Renal (Kidney) Cancer: No Hx Renal Failure: No - ENDOCRINE/METABOLIC Hx Endocrine Disorders: No Hx Adrenal Cancer: No Hx Diabetes Insipidus: No Hx Diabetes Mellitus Type 1: No Hx Diabetes Mellitus Type 2: Yes Hx Hyperthyroidism: No Hx Hypothyroidism: No Hx Systemic Lupus Erythematosus: Yes - HEMATOLOGICAL/ONCOLOGICAL Hx Blood Disorders: No Hx AIDS: No Hx Anemia: No Hx Cancer: No Hx Chemotherapy: No Hx Cirrhosis: No Hx Hemophilia: No Hx Hepatitis A: No Hx Hepatitis B: No Hx Hepatitis C: No Hx Metastesis: No Hx Shingles: No Hx Sickle Cell Disease: No Hx Unexplained Bleeding: No - INTEGUMENTARY Hx Dermatological Problems: No Hx Basil Cell: No Hx Eczema: No Hx Melanoma: No Hx Psoriasis: No Hx Squamous Cell: No - MUSCULOSKELETAL/RHEUMATOLOGICAL Hx Musculoskeletal Disorders: No Hx Arthritis: No Hx Back Pain: Yes Hx Degenerative Joint Disease: Yes Hx Falls: Yes Hx Fractures: No Hx Gout: No Hx Herniated Disk: No Hx Myasthenia Gravis: No Hx Osteoarthritis: No Hx Osteomyelitis: No Hx Osteoporosis: No Hx Rhabdomyolysis: No Hx Spinal Stenosis: Yes Hx Unsteady Gait: No - GASTROINTESTINAL Hx Gastrointestinal Disorders: No Hx Colostomy: No Hx Crohn's Disease: No Hx Diverticulitis: No Hx Gall Bladder Disease: No Hx Gastroesophageal Reflux: No Hx Ileostomy: No Hx Liver Failure: No Hx Pancreatitis: No HX Swallowing Problems: No - GENITOURINARY/GYNECOLOGICAL Hx Genitourinary Disorders: No Hx Hematuria: No Hx Incontinence: No Hx Sexually Transmitted Disorders: No - PSYCHIATRIC Hx Psychophysiologic Disorder: No Hx Anxiety: No Hx Bipolar Disorder: No Hx Depression: No Hx Emotional Abuse: No Hx Hallucinations: No Hx Panic Symptoms: No Hx Post Traumatic Stress Disorder: No Hx Psychosis: No Hx Physical Abuse: No Hx Schizophrenia: No Hx Sexual Abuse: No Hx Substance Use: No - SURGICAL HISTORY Hx Amputation: No Hx Appendectomy: No Hx Cardiac Catheterization: No Hx Cholecystectomy: No Hx Coronary Stent: No Hx Gastric Bypass Surgery: No Hx Hysterectomy: No Hx Joint Replacement: No Hx Kidney Transplant: No Hx Liver Transplant: No Hx Mastectomy: No Hx Musculoskeletal Surgery: No Hx Open Heart Surgery: No Hx Orthopedic Surgery: No Hx Splenectomy: No Hx Valve Replacement: No Other/Comment: ectopic with D&C - ANESTHESIA Hx Anesthesia: Yes Hx Anesthesia Reactions: No Meds Allergies/Adverse Reactions: Allergies Allergy/AdvReac Type Severity Reaction Status Date / Time No Known Allergies Allergy Verified 02/09/17 20:56 - Medications Medications: Current Medications Albuterol/Ipratropium (Duoneb 3 Mg/0.5 Mg (3 Ml) Ud) 3 ml IH QID PRN PRN Reason: Shortness of Breath Atorvastatin Calcium (Lipitor) 20 mg PO HS [facility] Last Admin: 02/09/17 22:53 Dose: 20 mg Furosemide (Lasix) 40 mg PO DAILY [facility] Last Admin: 02/10/17 09:11 Dose: 40 mg Hydroxychloroquine Sulfate (Plaquenil) 200 mg PO BID [facility] Last Admin: 02/10/17 09:16 Dose: 200 mg Ceftriaxone Sodium (Rocephin 1 Gram Ivpb) 1 gm in 100 mls @ 100 mls/hr IVPB DAILY [facility] PRN Reason: Protocol Last Admin: 02/10/17 09:16 Dose: 100 mls/hr Azithromycin (Zithromax 500mg In Ns) 500 mg in 250 mls @ 167 mls/hr IVPB DAILY [facility] PRN Reason: Protocol Last Admin: 02/10/17 09:17 Dose: 167 mls/hr Heparin Sodium/Sodium Chloride (Heparin 21025 Units/250ml 1/2 Normal Saline) 25 ,000 units in 250 mls @ 21.228 mls/hr IV .[id number] PRN; Protocol; 18 UNITS/KG/HR PRN Reason: ADJUST RATE PER PROTOCOL Insulin Human Regular (Humulin R Med) 0 units SC ACHS [facility] PRN Reason: Protocol Last Admin: 02/10/17 11:27 Dose: 5 units Non-Formulary Medication (Diclofenac Sodium [Voltaren]) 1 % TOP TID [facility] Last Admin: 02/10/17 14:52 Dose: Not Given Pantoprazole Sodium (Protonix Ec Tab) 40 mg PO 0630 [facility] Last Admin: 02/10/17 06:04 Dose: 40 mg Physical Exam - Head Exam Head Exam: ATRAUMATIC, NORMAL INSPECTION - Eye Exam Eye Exam: EOMI, Normal appearance, PERRL Pupil Exam: NORMAL ACCOMODATION - ENT Exam ENT Exam: Mucous Membranes Moist, Normal Exam - Neck Exam Neck exam: Positive for: Normal Inspection - Respiratory Exam Respiratory Exam: Clear to Auscultation Bilateral, NORMAL BREATHING PATTERN - Cardiovascular Exam Cardiovascular Exam: REGULAR RHYTHM - GI/Abdominal Exam GI & Abdominal Exam: Normal Bowel Sounds - Rectal Exam Rectal Exam: NORMAL INSPECTION - Extremities Exam Extremities exam: Positive for: normal inspection - Back Exam Back exam: NORMAL INSPECTION - Neurological Exam Neurological exam: Oriented x3 Results - Vital Signs Recent Vital Signs: Last Vital Signs Temp 98.5 F 02/10/17 06:00 Pulse 107 H 02/10/17 06:00 Resp 20 02/10/17 06:00 BP 137/87 02/10/17 09:11 Pulse Ox 97 02/10/17 06:00 - Labs Result Diagrams: 02/10/17 09:30 02/10/17 09:30 Labs: Laboratory Results - last 24 hr 02/09/17 02/09/17 02/10/17 20:21 21:44 07:40 WBC RBC Hgb Hct MCV MCH MCHC RDW Plt Count MPV Gran % Lymph % (Auto) [place] % (Auto) Eos % (Auto) Baso % (Auto) Gran # Lymph # [place] # Eos # Baso # Sodium Potassium Chloride Carbon Dioxide Anion Gap BUN Creatinine Est GFR ( Amer) Est GFR (Non-Af Amer) POC Glucose (mg/dL) 226 H 185 H Random Glucose Calcium Total Bilirubin AST ALT Alkaline Phosphatase Total Protein Albumin Globulin Albumin/Globulin Ratio Ur L.pneumophila Ag Negative 02/10/17 02/10/17 02/10/17 09:30 09:30 11:15 WBC 13.2 H RBC 5.39 Hgb 13.1 Hct 40.4 MCV 75.0 L MCH 24.3 L MCHC 32.4 RDW 14.9 H Plt Count 414 MPV 9.8 Gran % 54.5 Lymph % (Auto) 36.6 H [place] % (Auto) 7.6 H Eos % (Auto) 0.8 L Baso % (Auto) 0.5 Gran # 7.20 H Lymph # 4.8 H [place] # 1.0 H Eos # 0.1 Baso # 0.06 Sodium 136 Potassium 3.6 Chloride 103 Carbon Dioxide 21 Anion Gap 16 BUN 13 Creatinine 1.1 Est GFR ( Amer) > 60 Est GFR (Non-Af Amer) 53 POC Glucose (mg/dL) 288 H Random Glucose 173 H Calcium 9.5 Total Bilirubin 1.5 H AST 44 H ALT 66 H Alkaline Phosphatase 144 H Total Protein 7.5 Albumin 3.8 Globulin 3.7 Albumin/Globulin Ratio 1.0 L Ur L.pneumophila Ag Assessment & Plan - Assessment and Plan (Free Text) Assessment: 46 y/o F w/ Chest heaviness and SOB Would r/o Cardiac causes as she is currently not having an asthma attack. CT chest images reviewed by me, small rll infiltrate possibly aspiration related. Empiric abx added by the primary team. Would get PCT Albuterol PRN. W/ Her symptoms would explore cardiac causes, ECHO to be done and also have concern for Lupus carditis if further symptoms worsen. Steroids maybe indicative . Echo images show reduced EF , will await final read. Will follow along.
[2017-02-10 16:56] LABS: INR 1.13 (0.93-1.08); PARTIAL THROMBOPLASTIN TIME 26.3 Seconds (23.7-30.8)
--- NOTE | 2017-02-10 17:04 | CP.PCM.PN ---
Subjective - Date & Time of Evaluation Date of Evaluation: 02/10/17 Time of Evaluation: 11:00 - Subjective Subjective: Patient was seen and examined with medical typist.She is sitting in bed, alert ,awake , not in acute distress Objective - Vital Signs/Intake and Output Vital Signs (last 24 hours): Temp Pulse Resp BP Pulse Ox 98.8 F 105 H 20 129/68 97 02/10/17 16:40 02/10/17 16:40 02/10/17 16:40 02/10/17 16:40 02/10/17 16:40 - Medications Medications: Current Medications Albuterol/Ipratropium (Duoneb 3 Mg/0.5 Mg (3 Ml) Ud) 3 ml IH QID PRN PRN Reason: Shortness of Breath Atorvastatin Calcium (Lipitor) 20 mg PO HS [facility] Last Admin: 02/09/17 22:53 Dose: 20 mg Furosemide (Lasix) 40 mg PO DAILY [facility] Last Admin: 02/10/17 09:11 Dose: 40 mg Hydroxychloroquine Sulfate (Plaquenil) 200 mg PO BID [facility] Last Admin: 02/10/17 09:16 Dose: 200 mg Ceftriaxone Sodium (Rocephin 1 Gram Ivpb) 1 gm in 100 mls @ 100 mls/hr IVPB DAILY [facility] PRN Reason: Protocol Last Admin: 02/10/17 09:16 Dose: 100 mls/hr Azithromycin (Zithromax 500mg In Ns) 500 mg in 250 mls @ 167 mls/hr IVPB DAILY [facility] PRN Reason: Protocol Last Admin: 02/10/17 09:17 Dose: 167 mls/hr Heparin Sodium/Sodium Chloride (Heparin 61003 Units/250ml 1/2 Normal Saline) 25 ,000 units in 250 mls @ 21.228 mls/hr IV .[id number] PRN; Protocol; 18 UNITS/KG/HR PRN Reason: ADJUST RATE PER PROTOCOL Insulin Human Regular (Humulin R Med) 0 units SC ACHS [facility] PRN Reason: Protocol Last Admin: 02/10/17 11:27 Dose: 5 units Non-Formulary Medication (Diclofenac Sodium [Voltaren]) 1 % TOP TID [facility] Last Admin: 02/10/17 14:52 Dose: Not Given Pantoprazole Sodium (Protonix Ec Tab) 40 mg PO 0630 [facility] Last Admin: 02/10/17 06:04 Dose: 40 mg - Constitutional Appears: Non-toxic, No Acute Distress - Head Exam Head Exam: NORMAL INSPECTION - Eye Exam Eye Exam: Normal appearance - Respiratory Exam Respiratory Exam: NORMAL BREATHING PATTERN (few right basal crackle) - Cardiovascular Exam Cardiovascular Exam: REGULAR RHYTHM - GI/Abdominal Exam GI & Abdominal Exam: Soft Additional comments: obese, non tender - Extremities Exam Extremities Exam: Normal Inspection Additional comments: trace edema, no cynosis or clubbing - Neurological Exam Neurological Exam: Alert, Awake, Oriented x3 (there is no focal deficit) Assessment and Plan - Assessment and Plan (Free Text) Assessment: 46 F with PMH of Obesity, HTN was admitted last night with hemoptysis mixed with sputum , CT chest showed right lower lobe Pneumonia, was started on on Rocephin and Zithromax,.There is active hemoptysis,it was always mixed with sputum , however Echo showed cardiac thrombus and EF 16% (was called by , official result are pending),We will start patient on on heparin drip, We will watch for any bleeding, we will do serial hemoglobin monitoring . We will get cardiology consult and will monitor patient in tele.Patient is not in Overt CHF clinically.
[2017-02-10] MEDS: Heparin25000 units/250ml 1/2NS 25,000 UNITS/250 ML BAG IV PRN (17:17)
[2017-02-10 17:18] LABS: TROPONIN I 0.31 ng/mL
--- NOTE | 2017-02-10 17:38 | CARD ---
APPROVED REPORT EXAM: Two-dimensional and M-mode echocardiogram with Doppler and color Doppler. INDICATION Congestive Heart Failure 2D DIMENSIONS LVEF (%)15.0 (>50%) Mitral Valve E/A ratio0.0 TDI E/Lateral E'0.0E/Medial E'0.0 LEFT VENTRICLE The left ventricle is normal size. There is normal left ventricular wall thickness. The systolic function is severely impaired. There is global hypokinesis of the left ventricle. The apical thrombus is large. RIGHT VENTRICLE The right ventricle is mildly dilated. There is normal right ventricular wall thickness. RV Systolic function is severely reduced. ATRIA The left atrium is mildly dilated. The right atrium is mildly dilated. AORTIC VALVE The aortic valve is not well visualized. MITRAL VALVE Mitral regurgitation is moderate. TRICUSPID VALVE There is mild tricuspid regurgitation. There is mild pulmonary hypertension. GREAT VESSELS The aortic root is normal in size. PERICARDIAL EFFUSION There is no pericardial effusion. <Conclusion> The systolic function is severely impaired. There is global hypokinesis of the left ventricle. The apical thrombus is large. The right ventricle is mildly dilated. RV Systolic function is severely reduced. Mitral regurgitation is moderate. There is mild tricuspid regurgitation. There is mild pulmonary hypertension. Findings discussed with Dr. Oliva
--- NOTE | 2017-02-10 18:52 | CARD ---
APPROVED REPORT EKG Measurement Heart [id number] <Conclusion> Sinus tachycardia Inferior infarct, age undetermined Abnormal ECG
--- NOTE | 2017-02-10 19:45 | CP.PCM.CON ---
History of Present Illness - History of Present Illness History of Present Illness: Infectious Disease Consultation: February 10, 2017 46 yo AA female with extensive past medical history presenting with hemoptysis. She was treated with Azithromycin without improvement. The patient reports headaches, shortness of breath, nausea, vomiting, and chest tightness. The patient has leukocytosis and potential pneumonia. Clot seen in echocardiogram. The patient has a history of Lupus, asthma, diabetes. PMHx: hypertension, diabetes, hyperlipidemia, asthma, SLE, migraine headaches, uterine fibroids, and spinal stenosis PSHx: Ectopic s/p D&C 1993 Allergies: NKDA Social Hx: No tobacco or illicit drug use. Social EtOH. Active Medications Albuterol/Ipratropium (Duoneb 3 Mg/0.5 Mg (3 Ml) Ud) 3 ml IH QID PRN PRN Reason: Shortness of Breath Atorvastatin Calcium (Lipitor) 20 mg PO HS [facility] Last Admin: 02/09/17 22:53 Dose: 20 mg Furosemide (Lasix) 40 mg PO DAILY [facility] Last Admin: 02/10/17 09:11 Dose: 40 mg Hydroxychloroquine Sulfate (Plaquenil) 200 mg PO BID [facility] Last Admin: 02/10/17 17:19 Dose: 200 mg Ceftriaxone Sodium (Rocephin 1 Gram Ivpb) 1 gm in 100 mls @ 100 mls/hr IVPB DAILY [facility] PRN Reason: Protocol Last Admin: 02/10/17 09:16 Dose: 100 mls/hr Azithromycin (Zithromax 500mg In Ns) 500 mg in 250 mls @ 167 mls/hr IVPB DAILY [facility] PRN Reason: Protocol Last Admin: 02/10/17 09:17 Dose: 167 mls/hr Heparin Sodium/Sodium Chloride (Heparin 36463 Units/250ml 1/2 Normal Saline) 25 ,000 units in 250 mls @ 21.228 mls/hr IV .[id number] PRN; Protocol; 18 UNITS/KG/HR PRN Reason: ADJUST RATE PER PROTOCOL Last Admin: 02/10/17 17:17 Dose: 18 units/kg/hr, 21.228 mls/hr Insulin Human Regular (Humulin R Med) 0 units SC ACHS [facility] PRN Reason: Protocol Last Admin: 02/10/17 17:18 Dose: 1 units Non-Formulary Medication (Diclofenac Sodium [Voltaren]) 1 % TOP TID [facility] Last Admin: 02/10/17 14:52 Dose: Not Given Pantoprazole Sodium (Protonix Ec Tab) 40 mg PO 0630 [facility] Last Admin: 02/10/17 06:04 Dose: 40 mg Family Hx: Diabetes in mother Breast Cancer in grandmother ROS: SOB, cough, hemoptysis, nausea, vomiting, headaches, dizziness. No abdominal pain, melena, hematuria, hematemesis,hematochezia, vision loss. Past Patient History - Infectious Disease Hx of Infectious Diseases: None - Past Social History Smoking Status: Never Smoked - CARDIAC Hx Cardiac Disorders: No Hx Angina: No Hx Cardia Arrhythmia: No Hx Circulatory Problems: No Hx Congestive Heart Failure: No Hx Heart Murmur: No Hx Heart Transplant: No Hx Hypertension: No Hx Internal Defibrillator: No Hx Mitral Valve Prolapse: No Hx Pacemaker: No Hx Peripheral Edema: No Hx Peripheral Vascular Disease: No - PULMONARY Hx Respiratory Disorders: Yes Hx Asthma: Yes Hx Bronchitis: Yes Hx Chronic Obstructive Pulmonary Disease (COPD): No Hx Emphysema: No Hx Pneumonia: No Hx Respiratory Aspiration: No Hx Respiratory Tract Infection: No Hx Sleep Apnea: No Hx Tuberculosis: No - NEUROLOGICAL Hx Neurological Disorder: No Hx Alzheimer's Disease: No HX Cerebrovascular Accident: No Hx Dementia: No Hx Dizziness: No Hx Meningitis: No Hx Migraine: Yes Hx Parkinson's Disease: No Hx Seizures: No Hx Transient Ischemic Attacks (TIA): No - HEENT Hx HEENT Problems: No Hx Blind: No Hx Cataracts: No Hx Deafness: No Hx Difficulty Chewing: No Hx Epistaxis: No Hx Glaucoma: No Hx Macular Degeneration: No - RENAL Hx Chronic Kidney Disease: No Hx Dialysis: No Hx Kidney Stones: No Hx Neurogenic Bladder: No Hx Pyelonephritis: No Hx Renal (Kidney) Cancer: No Hx Renal Failure: No - ENDOCRINE/METABOLIC Hx Endocrine Disorders: No Hx Adrenal Cancer: No Hx Diabetes Insipidus: No Hx Diabetes Mellitus Type 1: No Hx Diabetes Mellitus Type 2: Yes Hx Hyperthyroidism: No Hx Hypothyroidism: No Hx Systemic Lupus Erythematosus: Yes - HEMATOLOGICAL/ONCOLOGICAL Hx Blood Disorders: No Hx AIDS: No Hx Anemia: No Hx Cancer: No Hx Chemotherapy: No Hx Cirrhosis: No Hx Hemophilia: No Hx Hepatitis A: No Hx Hepatitis B: No Hx Hepatitis C: No Hx Metastesis: No Hx Shingles: No Hx Sickle Cell Disease: No Hx Unexplained Bleeding: No - INTEGUMENTARY Hx Dermatological Problems: No Hx Basil Cell: No Hx Eczema: No Hx Melanoma: No Hx Psoriasis: No Hx Squamous Cell: No - MUSCULOSKELETAL/RHEUMATOLOGICAL Hx Musculoskeletal Disorders: No Hx Arthritis: No Hx Back Pain: Yes Hx Degenerative Joint Disease: Yes Hx Falls: Yes Hx Fractures: No Hx Gout: No Hx Herniated Disk: No Hx Myasthenia Gravis: No Hx Osteoarthritis: No Hx Osteomyelitis: No Hx Osteoporosis: No Hx Rhabdomyolysis: No Hx Spinal Stenosis: Yes Hx Unsteady Gait: No - GASTROINTESTINAL Hx Gastrointestinal Disorders: No Hx Colostomy: No Hx Crohn's Disease: No Hx Diverticulitis: No Hx Gall Bladder Disease: No Hx Gastroesophageal Reflux: No Hx Ileostomy: No Hx Liver Failure: No Hx Pancreatitis: No HX Swallowing Problems: No - GENITOURINARY/GYNECOLOGICAL Hx Genitourinary Disorders: No Hx Hematuria: No Hx Incontinence: No Hx Sexually Transmitted Disorders: No - PSYCHIATRIC Hx Psychophysiologic Disorder: No Hx Anxiety: No Hx Bipolar Disorder: No Hx Depression: No Hx Emotional Abuse: No Hx Hallucinations: No Hx Panic Symptoms: No Hx Post Traumatic Stress Disorder: No Hx Psychosis: No Hx Physical Abuse: No Hx Schizophrenia: No Hx Sexual Abuse: No Hx Substance Use: No - SURGICAL HISTORY Hx Amputation: No Hx Appendectomy: No Hx Cardiac Catheterization: No Hx Cholecystectomy: No Hx Coronary Stent: No Hx Gastric Bypass Surgery: No Hx Hysterectomy: No Hx Joint Replacement: No Hx Kidney Transplant: No Hx Liver Transplant: No Hx Mastectomy: No Hx Musculoskeletal Surgery: No Hx Open Heart Surgery: No Hx Orthopedic Surgery: No Hx Splenectomy: No Hx Valve Replacement: No Other/Comment: ectopic with D&C - ANESTHESIA Hx Anesthesia: Yes Hx Anesthesia Reactions: No Meds Allergies/Adverse Reactions: Allergies Allergy/AdvReac Type Severity Reaction Status Date / Time No Known Allergies Allergy Verified 02/09/17 20:56 - Medications Medications: Current Medications Albuterol/Ipratropium (Duoneb 3 Mg/0.5 Mg (3 Ml) Ud) 3 ml IH QID PRN PRN Reason: Shortness of Breath Atorvastatin Calcium (Lipitor) 20 mg PO HS [facility] Last Admin: 02/09/17 22:53 Dose: 20 mg Furosemide (Lasix) 40 mg PO DAILY [facility] Last Admin: 02/10/17 09:11 Dose: 40 mg Hydroxychloroquine Sulfate (Plaquenil) 200 mg PO BID [facility] Last Admin: 02/10/17 17:19 Dose: 200 mg Ceftriaxone Sodium (Rocephin 1 Gram Ivpb) 1 gm in 100 mls @ 100 mls/hr IVPB DAILY [facility] PRN Reason: Protocol Last Admin: 02/10/17 09:16 Dose: 100 mls/hr Azithromycin (Zithromax 500mg In Ns) 500 mg in 250 mls @ 167 mls/hr IVPB DAILY [facility] PRN Reason: Protocol Last Admin: 02/10/17 09:17 Dose: 167 mls/hr Heparin Sodium/Sodium Chloride (Heparin 32541 Units/250ml 1/2 Normal Saline) 25 ,000 units in 250 mls @ 21.228 mls/hr IV .[id number] PRN; Protocol; 18 UNITS/KG/HR PRN Reason: ADJUST RATE PER PROTOCOL Last Admin: 02/10/17 17:17 Dose: 18 units/kg/hr, 21.228 mls/hr Insulin Human Regular (Humulin R Med) 0 units SC ACHS [facility] PRN Reason: Protocol Last Admin: 02/10/17 17:18 Dose: 1 units Non-Formulary Medication (Diclofenac Sodium [Voltaren]) 1 % TOP TID [facility] Last Admin: 02/10/17 14:52 Dose: Not Given Pantoprazole Sodium (Protonix Ec Tab) 40 mg PO 0630 [facility] Last Admin: 02/10/17 06:04 Dose: 40 mg Physical Exam - Constitutional Appears: Non-toxic, No Acute Distress, Chronically Ill - Head Exam Head Exam: ATRAUMATIC, NORMOCEPHALIC - Eye Exam Eye Exam: EOMI, PERRL Pupil Exam: NORMAL ACCOMODATION, PERRL - ENT Exam ENT Exam: Mucous Membranes Moist, Normal External Ear Exam, TM's Normal Bilaterally - Neck Exam Neck exam: Positive for: Full Rom, Normal Inspection - Respiratory Exam Respiratory Exam: Clear to Auscultation Bilateral, NORMAL BREATHING PATTERN. absent: Rales, Rhonchi, Wheezes - Cardiovascular Exam Cardiovascular Exam: REGULAR RHYTHM, RRR, +S1, +S2 - GI/Abdominal Exam GI & Abdominal Exam: Normal Bowel Sounds, Soft. absent: Distended, Tenderness - Extremities Exam Extremities exam: Positive for: full ROM, normal inspection - Neurological Exam Neurological exam: Alert, CN II-XII Intact, Oriented x3 - Psychiatric Exam Psychiatric exam: Normal Affect, Normal Mood - Skin Skin Exam: Intact, Normal Color Results - Vital Signs Recent Vital Signs: Last Vital Signs Temp 98.8 F 02/10/17 16:40 Pulse 107 H 02/10/17 18:00 Resp 20 02/10/17 16:40 BP 129/68 02/10/17 16:40 Pulse Ox 97 02/10/17 16:40 - Labs Result Diagrams: 02/10/17 09:30 02/10/17 09:30 Labs: Laboratory Results - last 24 hr 02/10/17 02/10/17 16:25 16:25 PT 12.2 H INR 1.13 H APTT 26.3 Lactate Dehydrogenase 553 Total Creatine Kinase 107 Troponin I 0.31 H* D Assessment & Plan - Assessment and Plan (Free Text) Assessment: 46 yo AA female with CAP started on Rocephin and Azthromycin for now. Would consider Flagyl if there are concerns for aspiration pneumonia. Monitor transaminitis which is currently mild. Patient is continuing treatment for SLE and Diabetes. Hobbs cultures. RLL pneumonia. Supportive care Thank you for allowing me to participate in the care of the patient, we will follow with you.
[2017-02-10 23:07] LABS: HEMATOCRIT 39.2 % (36.0-48.0); MEAN CORPUSCULAR HEMOGLOBIN 24.2 pg (25.0-35.0); MEAN CORPUSCULAR HGB CONC 32.7 g/dl (31.0-37.0); RED CELL DISTRIBUTION WIDTH 14.8 % (11.5-14.5)
[2017-02-10 23:08] LABS: MEAN PLATELET VOLUME 9.8 fl (7.0-11.0)
[2017-02-10 23:27] LABS: TROPONIN I 0.36 ng/mL
[2017-02-11 00:05] LABS: ADD MANUAL DIFF? NO
[2017-02-11 00:08] LABS: BASO # 0.04 K/mm3 (0.0-2.0); BASO % 0.3 % (0.0-3.0); EOS % 0.3 % (1.5-5.0); GRAN # 7.91 (1.4-6.5); GRAN % 58.5 % (50.0-68.0); HEMATOCRIT 37.4 % (36.0-48.0); LYMPH # 4.6 (1.2-3.4); MEAN CELL VOLUME 74.1 fL (80.0-105.0); MEAN CORPUSCULAR HGB CONC 33.7 g/dl (31.0-37.0); MEAN PLATELET VOLUME 9.2 fl (7.0-11.0); MONO # 0.9 (0.1-0.6); MONO % 6.9 % (1.0-6.0); PLATELET COUNT 385 10^3/uL (120.0-450.0); RED CELL DISTRIBUTION WIDTH 14.5 % (11.5-14.5); WHITE BLOOD COUNT 13.5 10^3/ul (4.5-11.0)
[2017-02-11] MEDS: Heparin25000 units/250ml 1/2NS 25,000 UNITS/250 ML BAG IV PRN (06:14)
[2017-02-11 08:04] LABS: HEMATOCRIT 37.4 % (36.0-48.0); MEAN CELL VOLUME 74.2 fL (80.0-105.0); MEAN CORPUSCULAR HEMOGLOBIN 24.4 pg (25.0-35.0); MEAN CORPUSCULAR HGB CONC 32.9 g/dl (31.0-37.0); MEAN PLATELET VOLUME 9.6 fl (7.0-11.0); RED CELL DISTRIBUTION WIDTH 14.6 % (11.5-14.5)
[2017-02-11] MEDS: Insulin Reg-MEDIUM-Coverage SC SCH ×4 (08:16→21:31)
[2017-02-11 08:25] LABS: ALB/GLOB RATIO 0.8 (1.1-1.8); ALKALINE PHOSPHATASE 165 U/L (38-133); ALT/SGPT 65 U/L (7-56); AST/SGOT 50 U/L (15-39); BILIRUBIN,TOTAL 0.9 mg/dL (0.2-1.3); BLOOD UREA NITROGEN 18 mg/dL (7-21); CALCIUM 8.9 mg/dL (8.4-10.5); CARBON DIOXIDE 20 mmol/L (21-33); CHLORIDE 103 mmol/L (98-107); GFR AFRICAN-AMERICAN > 60; GLUCOSE,RANDOM 176 mg/dL (70-110); POTASSIUM 3.5 mmol/L (3.6-5.0); SODIUM 134 mmol/L (132-148); TOTAL PROTEIN 6.9 g/dL (5.8-8.3)
[2017-02-11 08:39] LABS: TROPONIN I 0.41 ng/mL
[2017-02-11] MEDS ORDERED: Potassium Chloride 20 mEq ER Tab PO ONE ×2 (10:06→14:00)
[2017-02-11] MEDS: cefTRIAXone 1 gm 1 GM/100 ML BAG IVPB SCH (10:09)
[2017-02-11] MEDS: DICLOFENAC SODIUM 1% TOP SCH ×3 (10:10→19:13)
[2017-02-11] MEDS: Azithromycin 500MG/NS 250ml 500 MG/250 ML BAG IVPB SCH (11:16)
--- NOTE | 2017-02-11 11:23 | PN ---
DATE: 02/11/2017 The patient seen and examined at bedside. She is comfortable. She talks full sentences. She reports that she did not have hemoptysis overnight. PHYSICAL EXAMINATION: VITAL SIGNS: Temperature 97.7, heart rate 101, blood pressure 144/88, respiratory rate 20, oxygen saturation 99%. HEAD AND NECK: Atraumatic. LUNGS: Clear to auscultation bilaterally. HEART: Regular rate and rhythm. S1, S2 normal. ABDOMEN: Soft, nontender, nondistended. MUSCULOSKELETAL: Trace bilateral pedal and ankle edema. NEUROLOGIC: The patient moves all extremities spontaneously. SKIN: Moist. PSYCHIATRIC: The patient is alert and oriented x 3. LABORATORY DATA: WBC 12, hemoglobin 12.3, platelet count 388. Sodium 134, potassium 3.5, chloride 103, carbon dioxide 20, BUN 18, creatinine 1 down from 1.1, glucose 176. Troponin 0.41. AST 50, ALT 65. INR 124. Serology: Hepatitis negative. MEDICATIONS: Lipitor, DuoNeb p.r.n., Lasix daily, heparin drip, hydroxychloroquine, regular insulin sliding scale, Protonix, ceftriaxone, azithromycin. Sputum culture is negative. Blood culture is negative. Echocardiogram revealed left ventricular systolic function is severely impaired. There is global hypokinesis of the left ventricle. There is large apical thrombus. The right ventricle is mildly dilated. Right ventricular systolic function severely reduced. There is a mild tricuspid regurgitation. There is a mild pulmonary hypertension. CAT scan of the chest revealed right low lobe infiltrate, no pulmonary embolism. There were also a few changes suggestive of some bronchiectasis. ASSESSMENT AND PLAN: This is a 46-year-old lady who presented with some cough and mild hemoptysis. CAT scan did not reveal any endobronchial masses; however , some bronchiectases and RLL infiltrate were present (both of which can be source for hemoptysis). Patient has SLE, but clinical presentation, radiographic picture makes DAH much less likely. Subsequent workup revealed severe left ventricular systolic dysfunction with non-ST elevated myocardial infarction and large intracardiac thrombus. At present time, I would continue with antibiotics. I would consider anti-tussives if cough deteriorates. Patient does not appear to have severe CAP (hemodynamically and respiratory stable, no significant gas exchange abnormality, no uremia and no altered mental status), but I would order CRP and if comes back above 15 would consider low dose steroids. Optimization of cardiac regimen including (unless otherwise indicated by cardiology service), beta blockers, aspirin, Plavix, statins, EITAN inhibitors , therapeutic anticoagulation should be considered. Of course, if hemoptysis worsens, therapeutic anticoagulation, dual antiplatelet therapy would have to be withheld. In terms of potential bronchoscopy to evaluate bronchial tree, I would avoid elective bronchoscopy for up to 6 weeks after acute myocardial infarction. That, of course, would not apply if hemoptysis deteriorates and bronchoscopy would be needed emergently for massive hemoptysis. I think, however, at present time, the optimization of cardiac regimen is a priority and cardiac evaluation would have to take preference. Whether or not patient goes for cardiac catheterization will be deferred to cardiology service including timing thereof. We will continue to target euvolemia, euglycemia, normothermia and oxygen saturation more than 90%. We will continue with deep venous thrombosis and gastrointestinal prophylaxis. ccm time 40 min Abe Mike MD cc: [id number] TT: 02/11/2017 11:22:41 Confirmation # [id number] Dictation # [id number] mac WU
[2017-02-11] MEDS ORDERED: Albuterol-Ipratrop 3 mg / 0.5 (3 ml) UD IH SCH (13:54)
[2017-02-11] MEDS ORDERED: Albuterol-Ipratrop 3 mg / 0.5 (3 ml) UD IH PRN ×2 (13:54→13:56)
[2017-02-11] MEDS ORDERED: Pantoprazole 40 mg EC Tab PO SCH (14:45)
--- NOTE | 2017-02-11 17:07 | CP.PCM.PN ---
Subjective - Date & Time of Evaluation Date of Evaluation: 02/11/17 Time of Evaluation: 15:15 - Subjective Subjective: Infectious Disease Follow Up: February 11, 2017 46 yo AA female with extensive past medical history presenting with hemoptysis. She was treated with Azithromycin without improvement. The patient reports headaches, shortness of breath, nausea, vomiting, and chest tightness. The patient has leukocytosis and potential pneumonia. Clot seen in echocardiogram. The patient has a history of Lupus, asthma, diabetes. On Ceftriaxone and Azithromycin. Objective - Vital Signs/Intake and Output Vital Signs (last 24 hours): Temp Pulse Resp BP Pulse Ox 97.7 F 106 H 20 124/87 99 02/11/17 12:30 02/11/17 16:03 02/11/17 12:30 02/11/17 16:03 02/11/17 07:43 Intake and Output: 02/11/17 02/11/17 06:59 18:59 Intake Total 700 Balance 700 - Medications Medications: Current Medications Albuterol/Ipratropium (Duoneb 3 Mg/0.5 Mg (3 Ml) Ud) 3 ml IH QIDRESP PRN PRN Reason: Shortness of Breath Aspirin (Ecotrin) 81 mg PO DAILY [facility] Last Admin: 02/11/17 16:02 Dose: 81 mg Atorvastatin Calcium (Lipitor) 20 mg PO HS [facility] Last Admin: 02/10/17 21:39 Dose: 20 mg Clopidogrel Bisulfate (Plavix) 75 mg PO DAILY [facility] Last Admin: 02/11/17 16:03 Dose: 75 mg Furosemide (Lasix) 40 mg PO DAILY [facility] Last Admin: 02/11/17 10:09 Dose: 40 mg Hydroxychloroquine Sulfate (Plaquenil) 200 mg PO BID [facility] Last Admin: 02/11/17 10:09 Dose: 200 mg Ceftriaxone Sodium (Rocephin 1 Gram Ivpb) 1 gm in 100 mls @ 100 mls/hr IVPB DAILY [facility] PRN Reason: Protocol Last Admin: 02/11/17 10:09 Dose: 100 mls/hr Azithromycin (Zithromax 500mg In Ns) 500 mg in 250 mls @ 167 mls/hr IVPB DAILY [facility] PRN Reason: Protocol Last Admin: 02/11/17 11:16 Dose: 167 mls/hr Heparin Sodium/Sodium Chloride (Heparin 95842 Units/250ml 1/2 Normal Saline) 25 ,000 units in 250 mls @ 21.228 mls/hr IV .[id number] PRN; Protocol; 18 UNITS/KG/HR PRN Reason: ADJUST RATE PER PROTOCOL Last Admin: 02/11/17 06:14 Dose: 18 units/kg/hr, 21.228 mls/hr Insulin Human Regular (Humulin R Med) 0 units SC ACHS [facility] PRN Reason: Protocol Last Admin: 02/11/17 13:07 Dose: 5 units Lisinopril (Zestril) 2.5 mg PO DAILY [facility] Last Admin: 02/11/17 16:03 Dose: 2.5 mg Metoprolol Tartrate (Lopressor) 25 mg PO BID [facility] Last Admin: 02/11/17 13:05 Dose: 25 mg Non-Formulary Medication (Diclofenac Sodium [Voltaren]) 1 % TOP TID [facility] Last Admin: 02/11/17 14:27 Dose: Not Given Pantoprazole Sodium (Protonix Ec Tab) 40 mg PO 0630 [facility] Last Admin: 02/10/17 06:04 Dose: 40 mg - Labs Labs: 02/11/17 07:57 02/11/17 07:57 PT 12.2 Seconds (9.9-11.8) H 02/10/17 16:25 INR 1.13 (0.93-1.08) H 02/10/17 16:25 APTT 31.3 Seconds (23.7-30.8) H 02/11/17 12:10 - Constitutional Appears: Non-toxic, No Acute Distress, Chronically Ill - Head Exam Head Exam: ATRAUMATIC, NORMOCEPHALIC - Eye Exam Eye Exam: EOMI, PERRL Pupil Exam: NORMAL ACCOMODATION, PERRL - ENT Exam ENT Exam: Mucous Membranes Moist, Normal External Ear Exam, TM's Normal Bilaterally - Neck Exam Neck Exam: Full ROM, Normal Inspection - Respiratory Exam Respiratory Exam: Clear to Ausculation Bilateral, NORMAL BREATHING PATTERN. absent: Rales, Rhonchi, Wheezes - Cardiovascular Exam Cardiovascular Exam: REGULAR RHYTHM, RRR, +S1, +S2 - GI/Abdominal Exam GI & Abdominal Exam: Soft, Normal Bowel Sounds. absent: Distended, Tenderness - Extremities Exam Extremities Exam: Full ROM, Normal Inspection - Neurological Exam Neurological Exam: Alert, Awake, CN II-XII Intact, Oriented x3 - Psychiatric Exam Psychiatric exam: Normal Affect, Normal Mood - Skin Skin Exam: Intact, Normal Color Assessment and Plan - Assessment and Plan (Free Text) Assessment: 46 yo AA female with CAP started on Rocephin and Azithromycin for now. Would consider Flagyl if there are concerns for aspiration pneumonia. Monitor transaminitis which is currently mild. Patient is continuing treatment for SLE and Diabetes. Hobbs cultures. RLL pneumonia. On evaluation today, the patient remains stable with minimal pulmonary symptoms. Can consider use of oral Rocephin and Azithromycin to complete 7 days of therapy. Supportive care Thank you for allowing me to participate in the care of the patient, we will follow with you.
[2017-02-11] MEDS ORDERED: Morphine 2 mg/ml ISec IVP STA (18:24)
--- NOTE | 2017-02-11 22:26 | CON ---
DATE: 02/11/2017 The patient is in room 265, bed 1. This consult is being dictated on behalf of Dr. Gaston, whom I am c overing. REASON FOR CONSULTATION: Elevated troponin and cardiomyopathy on echo along with thrombus formation, apical thrombus in the LV on echo. HISTORY OF PRESENT ILLNESS: The patient is a 46-year-old female with known case of lupus since the l ast 3 years, asthma, hypertension, diabetes, pituitary adenoma, spinal stenosis, hyperlipidemia, admi tted with a history that a few weeks ago she started getting shortness of breath along with a cough a nd later on it changed to some specks of blood tinged sputum since the last 3-[address] ates that since the last few weeks she is also sleeping on 2 pillows and she is also getting PND and recently she noticed some swelling on the legs also. The patient denies any chest pain at present mo ment. The patient states that in 09/[address] Catherine in [place] who did a stress test and e cho and she was told everything was normal. The patient also stated that she had chest pain several years ago, she was brought to the [facility], where she had cardiac catheterization and she was t old it was normal. PAST MEDICAL HISTORY: As mentioned, the patient has lupus, asthma, hypertension, diabetes, pituitary adenoma, spinal stenosis and hyperlipidemia. She had ectopic in 1993. PERSONAL HISTORY: Denies smoking. Drinks socially. ALLERGIES: Denies any allergies. FAMILY HISTORY: Father had diabetes and mother with coronary artery disease and had coronary artery bypass surgery. REVIEW OF SYSTEMS: All the systems were reviewed; positives mentioned in history, others were negati ve. PHYSICAL EXAMINATION: VITAL SIGNS: Blood pressure 124/87, respirations 20, pulse 105, temperature 97.7. HEENT: Head is normocephalic. Eyes: Pupils normal. Conjunctivae normal. Nose and throat normal. LUNGS: Clear. CARDIOVASCULAR: S1, S2. ABDOMEN: Soft, no tenderness, no organomegaly. Bowel sounds normal. EXTREMITIES: No clubbing, no cyanosis, no edema seen at present. LABORATORY DATA: WBC 12.0, hemoglobin 12.3, hematocrit 37.4, platelet 388. Sodium 134, potassium 3. 5, BUN 18, creatinine 1.0. Initial troponin 0.36, second troponin 0.41. Total protein and albumin n ormal. Random sugar 262, earlier it was 176. The patient had a CT scan of the chest, which showed a right lower lobe alveolar infiltrate. The patient had echo on 02/10/2017, which showed severely impai red left ventricle systolic function with reduced LV ejection fraction of 15% to16%, global hypokines is of the left ventricle, apical thrombosis, large, in apical area and the left ventricle; right vent ricle is mildly dilated, RV systolic function severely reduced, mitral regurgitation moderate, mild t ricuspid regurgitation. There is mild pulmonary hypertension. DIAGNOSES: Cardiomyopathy with reduced left ventricular systolic function, apical left ventricular t hrombus, pneumonia, troponin elevated, rule out non-ST elevation myocardial infarction; lupus, asthma , hypertension, pituitary adenoma, spinal stenosis, hyperlipidemia, obesity. PLAN: The patient is already on DuoNeb hand nebulizer therapy. The patient is also getting heparin drip. For low potassium, potassium therapy has been given. Furosemide 40 mg p.o. daily, Lipitor 20 mg p.o. daily, metoprolol 25 b.i.d., Rocephin 1 gram IV daily, Protonix 40 daily, azithromycin 500 mg IV daily. Will also add lisinopril 2.5 mg p.o. daily to therapy and will repeat troponin and repeat electrolytes tomorrow. Will see the pattern of her troponin, and if it stays persistently high, the n it may be a false presentation; however, the patient has been started on beta blockers and heparin therapy and in the meantime will also add aspirin and Plavix while we are working up the patient. Wi ll also add Protonix 40 mg p.o. daily. We will follow with you. Colleen Andrade MD cc: [id number] TT: 02/11/2017 22:25:29 Confirmation # [id number] Dictation # [id number] acacia
--- NOTE | 2017-02-11 23:56 | CP.PCM.PN ---
<Arelis Heath - Last Filed: 02/12/17 05:54> Subjective - Date & Time of Evaluation Date of Evaluation: 02/11/17 Time of Evaluation: 08:35 - Subjective Subjective: Pt seen and evaluated at bedside. Pt observed eating without issues. Pt denies chest pain, n/v. Afebrile overnight. Objective - Vital Signs/Intake and Output Vital Signs (last 24 hours): Temp Pulse Resp BP Pulse Ox 97.7 F 80 18 111/55 L 98 02/11/17 23:43 02/11/17 23:43 02/11/17 23:43 02/11/17 23:43 02/11/17 23:43 - Medications Medications: Current Medications Albuterol/Ipratropium (Duoneb 3 Mg/0.5 Mg (3 Ml) Ud) 3 ml IH QIDRESP PRN PRN Reason: Shortness of Breath Aspirin (Ecotrin) 81 mg PO DAILY [facility] Last Admin: 02/11/17 16:02 Dose: 81 mg Atorvastatin Calcium (Lipitor) 20 mg PO HS [facility] Last Admin: 02/11/17 21:24 Dose: 20 mg Clopidogrel Bisulfate (Plavix) 75 mg PO DAILY [facility] Last Admin: 02/11/17 16:03 Dose: 75 mg Furosemide (Lasix) 40 mg PO DAILY [facility] Last Admin: 02/11/17 10:09 Dose: 40 mg Hydroxychloroquine Sulfate (Plaquenil) 200 mg PO BID [facility] Last Admin: 02/11/17 19:18 Dose: 200 mg Ceftriaxone Sodium (Rocephin 1 Gram Ivpb) 1 gm in 100 mls @ 100 mls/hr IVPB DAILY [facility] PRN Reason: Protocol Last Admin: 02/11/17 10:09 Dose: 100 mls/hr Azithromycin (Zithromax 500mg In Ns) 500 mg in 250 mls @ 167 mls/hr IVPB DAILY [facility] PRN Reason: Protocol Last Admin: 02/11/17 11:16 Dose: 167 mls/hr Heparin Sodium/Sodium Chloride (Heparin 54287 Units/250ml 1/2 Normal Saline) 25 ,000 units in 250 mls @ 21.228 mls/hr IV .[id number] PRN; Protocol; 18 UNITS/KG/HR PRN Reason: ADJUST RATE PER PROTOCOL Last Admin: 02/11/17 06:14 Dose: 18 units/kg/hr, 21.228 mls/hr Insulin Human Regular (Humulin R Med) 0 units SC ACHS [facility] PRN Reason: Protocol Last Admin: 02/11/17 21:31 Dose: Not Given Lisinopril (Zestril) 2.5 mg PO DAILY [facility] Last Admin: 02/11/17 16:03 Dose: 2.5 mg Metoprolol Tartrate (Lopressor) 25 mg PO BID [facility] Last Admin: 02/11/17 19:18 Dose: 25 mg Non-Formulary Medication (Diclofenac Sodium [Voltaren]) 1 % TOP TID [facility] Last Admin: 02/11/17 19:13 Dose: Not Given Pantoprazole Sodium (Protonix Ec Tab) 40 mg PO 0630 [facility] Last Admin: 02/10/17 06:04 Dose: 40 mg - Labs Labs: 02/11/17 07:57 02/11/17 07:57 PT 12.2 Seconds (9.9-11.8) H 02/10/17 16:25 INR 1.13 (0.93-1.08) H 02/10/17 16:25 APTT 146.6 Seconds (23.7-30.8) H* 02/11/17 19:20 - Additional Findings Additional findings: - Constitutional Appears: Non-toxic, No Acute Distress - Head Exam Head Exam: NORMAL INSPECTION, normocephalic - Eye Exam Eye Exam: Normal appearance, EOMI - Respiratory Exam Respiratory Exam: NORMAL BREATHING PATTERN , clear to auscultation - Cardiovascular Exam Cardiovascular Exam: REGULAR RHYTHM, +S1, +S2 - GI/Abdominal Exam GI & Abdominal Exam: Soft, non-tender - Extremities Exam Extremities Exam: Normal Inspection, no cyanosis - Neurological Exam Neurological Exam: Alert, Awake, Oriented x3 Assessment and Plan - Assessment and Plan (Free Text) Plan: 46 year old female with past medical history of hypertension, diabetes, hyperlipidemia, asthma, SLE, migraine SANTOS, uterine fibroids and spinal stenosis presents with hemoptysis and cardiac thrombus on ECHO Plan: Cardiac thrombus: heparin drip, heparin protocol Ptt and coag monitor Elevated troponins: 0.31, 0.36, 0.41 ASA 81, Plavix 75, Lisinopril 2.5 mg PO QD, metoprolol 25 mg PO BID HTN: lasix 40, Lisinopril 2.5 mg PO QD, metoprolol 25 mg PO BID Community acquired pneumonia -Initially Leukocytosis at 12.6, afebrile----> wbc 12.0 -D-dimer elevated at 2.02 -CTA showed right lower lobe acute pneumonia, no evidence of PE -Cont. Rocephin and Azthromycin IV -Aspiration precaution -O2 via NC prn -blood cx negative at 48 hours and sputum cultures pending -Follow up microbe antigens -ID consulted Dr. Sloan help appreciated Transaminitis -AST/ALT in ED 53/72---> 50/65 -hepatitis panel is negative -follow up AM labs Asthma: Albuterol/ipratropium IH prn HLD: lipitor 20mg po Diabetes: ISS, FS ACHS, Consistent carb diet SLE: home Hydroxychloroquine Prophylactic measures -Protonix for GI ppx -Lovenox for DVT ppx -Motrin for pain and fever <Stephie Auguste - Last Filed: 02/12/17 08:50> Objective - Vital Signs/Intake and Output Vital Signs (last 24 hours): Temp Pulse Resp BP Pulse Ox 97.7 F 94 H 18 111/55 L 98 02/11/17 23:43 02/12/17 06:00 02/11/17 23:43 02/11/17 23:43 02/11/17 23:43 Intake and Output: 02/12/17 02/12/17 06:59 18:59 Intake Total 410 910 Output Total 400 1200 Balance 10 -290 - Medications Medications: Current Medications Albuterol/Ipratropium (Duoneb 3 Mg/0.5 Mg (3 Ml) Ud) 3 ml IH QIDRESP PRN PRN Reason: Shortness of Breath Aspirin (Ecotrin) 81 mg PO DAILY [facility] Last Admin: 02/11/17 16:02 Dose: 81 mg Atorvastatin Calcium (Lipitor) 20 mg PO HS [facility] Last Admin: 02/11/17 21:24 Dose: 20 mg Clopidogrel Bisulfate (Plavix) 75 mg PO DAILY [facility] Last Admin: 02/11/17 16:03 Dose: 75 mg Furosemide (Lasix) 40 mg PO DAILY [facility] Last Admin: 02/11/17 10:09 Dose: 40 mg Hydroxychloroquine Sulfate (Plaquenil) 200 mg PO BID [facility] Last Admin: 02/11/17 19:18 Dose: 200 mg Ceftriaxone Sodium (Rocephin 1 Gram Ivpb) 1 gm in 100 mls @ 100 mls/hr IVPB DAILY [facility] PRN Reason: Protocol Last Admin: 02/11/17 10:09 Dose: 100 mls/hr Azithromycin (Zithromax 500mg In Ns) 500 mg in 250 mls @ 167 mls/hr IVPB DAILY [facility] PRN Reason: Protocol Last Admin: 02/11/17 11:16 Dose: 167 mls/hr Heparin Sodium/Sodium Chloride (Heparin 34915 Units/250ml 1/2 Normal Saline) 25 ,000 units in 250 mls @ 21.228 mls/hr IV .[id number] PRN; Protocol; 18 UNITS/KG/HR PRN Reason: ADJUST RATE PER PROTOCOL Last Titration: 02/12/17 05:22 Dose: 12.88 units/kg/hr, 15.2 mls/hr Insulin Human Regular (Humulin R Med) 0 units SC ACHS [facility] PRN Reason: Protocol Last Admin: 02/12/17 08:20 Dose: 1 units Lisinopril (Zestril) 2.5 mg PO DAILY [facility] Last Admin: 02/11/17 16:03 Dose: 2.5 mg Metoprolol Tartrate (Lopressor) 25 mg PO BID [facility] Last Admin: 02/11/17 19:18 Dose: 25 mg Non-Formulary Medication (Diclofenac Sodium [Voltaren]) 1 % TOP TID [facility] Last Admin: 02/11/17 19:13 Dose: Not Given Pantoprazole Sodium (Protonix Ec Tab) 40 mg PO 0630 [facility] Last Admin: 02/12/17 06:49 Dose: 40 mg - Labs Labs: 02/11/17 07:57 02/12/17 08:20 PT 12.2 Seconds (9.9-11.8) H 02/10/17 16:25 INR 1.13 (0.93-1.08) H 02/10/17 16:25 APTT 109.5 Seconds (23.7-30.8) H* 02/12/17 03:20 Attending/Attestation - Attestation I have personally seen and examined this patient.: Yes I have fully participated in the care of the patient.: Yes I have reviewed all pertinent clinical information, including history, physical exam and plan: Yes Notes (Text): 02/12/17 08:49 Patient seen and examined at bedside with the resident. labs, vitals and orders reveiwed. case discussed with cardiology. Continue ASA, plavix, AC with heparin , BBlockers. ICU follow up appreciated. Agree with the plan of care.
[2017-02-12] MEDS: Heparin25000 units/250ml 1/2NS 25,000 UNITS/250 ML BAG IV PRN ×2 (00:50→21:52)
[2017-02-12] MEDS: Pantoprazole 40 mg EC Tab PO SCH (06:49)
[2017-02-12] MEDS: Insulin Reg-MEDIUM-Coverage SC SCH ×4 (08:20→22:01)
[2017-02-12 08:39] LABS: MAGNESIUM 2.1 mg/dL (1.7-2.2); PHOSPHOROUS 3.9 mg/dL (2.5-4.5); POTASSIUM 3.7 mmol/L (3.6-5.0)
[2017-02-12 08:51] LABS: TROPONIN I 0.22 ng/mL
[2017-02-12] MEDS ORDERED: guaiFENesin 100 mg/5 ml Syrup UD PO PRN (09:25)
[2017-02-12 10:31] LABS: HEMATOCRIT 36.6 % (36.0-48.0); MEAN CELL VOLUME 74.7 fL (80.0-105.0); MEAN CORPUSCULAR HEMOGLOBIN 24.1 pg (25.0-35.0); MEAN CORPUSCULAR HGB CONC 32.2 g/dl (31.0-37.0); MEAN PLATELET VOLUME 9.6 fl (7.0-11.0); RED CELL DISTRIBUTION WIDTH 14.6 % (11.5-14.5)
[2017-02-12] MEDS: DICLOFENAC SODIUM 1% TOP SCH ×3 (10:35→17:17)
[2017-02-12] MEDS: MethylPREDNISolone 40 mg Vial IVP SCH ×2 (10:45→22:00)
[2017-02-12] MEDS: cefTRIAXone 1 gm 1 GM/100 ML BAG IVPB SCH (10:51)
[2017-02-12] MEDS: Azithromycin 500MG/NS 250ml 500 MG/250 ML BAG IVPB SCH (10:51)
[2017-02-12 10:56] LABS: ALT/SGPT 290 U/L (7-56); AST/SGOT 448 U/L (15-39)
--- NOTE | 2017-02-12 12:07 | PN ---
DATE: 02/12/2017 The patient is seen and examined at bedside. She reports substantial improvement in her cough and hemoptysis. In fact, she denies hemoptysis at all. PHYSICAL EXAMINATION: VITAL SIGNS: Heart rate 99, blood pressure 104/75, oxygen saturation 98% on nasal cannula, heart rate 105. HEAD AND NECK: Atraumatic. LUNGS: Clear to auscultation bilaterally. HEART: Regular rate and rhythm. S1, S2 normal. ABDOMEN: Soft, nontender, nondistended. MUSCULOSKELETAL: No C/C/E. NEUROLOGIC: The patient moves all extremities spontaneously. SKIN: Moist. PSYCHIATRIC: The patient is alert and oriented x 3. LABORATORY DATA: Sodium 134, potassium 3.7, chloride 103, carbon dioxide 22. BUN 24, creatinine 1.2. Glucose 195. AST 448, ALT 290 (Lipitor stopped). Troponin 0.22. PTT 109.5. WBC 11, hemoglobin 11.8, platelet count 405. MEDICATIONS: DuoNeb p.r.n., aspirin, azithromycin, Plavix, Lasix, Robitussin, heparin drip, hydroxychloroquine, ibuprofen p.r.n., lisinopril, Solu-Medrol, metoprolol, Protonix, potassium supplementation. ASSESSMENT AND PLAN: This is a 46-year-old lady with some pneumonia and was found to have severe left ventricular systolic dysfunction with intracardiac thrombus. At present time, the patient is on antibiotics, low-dose steroids ( CRP>15), and antitussives. Her hemoptysis substantially improved. She is on aspirin, Plavix, beta-blockers, and therapeutic anticoagulation. Lipitor was stopped due to rise in her LFTs. If continues to rise, abdominal ultrasound will be ordered. The patient also has mild increase in creatinine that would need to be watched, hold lasix and may be give some IVF back. From pulmonary perspective, however, the patient showed some improvement. Leukocytosis resolved. The patient is afebrile. Shortness of breath substantially improved. The patient is not coughing anymore. Abe Mike MD cc: [id number] TT: 02/12/2017 12:06:40 Confirmation # [id number] Dictation # [id number] BRYCE
--- NOTE | 2017-02-12 15:20 | US ---
PROCEDURE: Right lower extremity venous US HISTORY: Leg pain and swelling. Evaluate for DVT. PHYSICIAN(S): Ric Quijano M.D. TECHNIQUE: Duplex sonography and color-flow Doppler with graded compression were used to evaluate the deep venous system of the right lower extremity. FINDINGS: The visualized deep venous system of the right lower extremity is sonographically normal and compressible. Normal waveforms and augmentation are seen. There is no sonographic evidence for deep venous thrombosis in the visualized segments of the right lower extremity. IMPRESSION: 1. No sonographic evidence for deep venous thrombosis in the visualized segments of the right lower extremity.
--- NOTE | 2017-02-12 15:26 | US ---
HISTORY: transaminitis and JOVANNA COMPARISON: None. TECHNIQUE: Sonographic evaluation of the abdomen. FINDINGS: LIVER: Measures cm. Heterogeneous echogenicity of the liver parenchyma. No mass. No intrahepatic bile duct dilatation. GALLBLADDER: Unremarkable. No gallstones. COMMON BILE DUCT: Measures mm. No stones. No dilatation. PANCREAS: Not well-visualized. RIGHT KIDNEY: Measures cm. Question mild hydronephrosis. LEFT KIDNEY: Measures cm. 7 millimeter calculus. Interpolar region. SPLEEN: Normal in size and contour. No mass. AORTA: No aneurysmal dilatation. IVC: Unremarkable. OTHER FINDINGS: Severely limited secondary to large body habitus. IMPRESSION: Fatty liver. 7 millimeter calculus suggested in the interpolar region. Question mild right hydronephrosis. Severely limited by large body habitus.
--- NOTE | 2017-02-12 17:09 | CP.PCM.PN ---
Subjective - Date & Time of Evaluation Date of Evaluation: 02/12/17 Time of Evaluation: 14:45 - Subjective Subjective: Infectious Disease Follow Up: February 12, 2017 46 yo AA female with extensive past medical history presenting with hemoptysis. She was treated with Azithromycin without improvement. The patient reports headaches, shortness of breath, nausea, vomiting, and chest tightness. The patient has leukocytosis and potential pneumonia. Clot seen in echocardiogram. The patient has a history of Lupus, asthma, diabetes. On Ceftriaxone and Azithromycin. No major complaints. Objective - Vital Signs/Intake and Output Vital Signs (last 24 hours): Temp Pulse Resp BP Pulse Ox 98.4 F 90 19 111/68 98 02/12/17 12:00 02/12/17 14:00 02/12/17 12:00 02/12/17 12:00 02/11/17 23:43 Intake and Output: 02/12/17 02/12/17 06:59 18:59 Intake Total 410 910 Output Total 400 1200 Balance 10 -290 - Medications Medications: Current Medications Albuterol/Ipratropium (Duoneb 3 Mg/0.5 Mg (3 Ml) Ud) 3 ml IH QIDRESP PRN PRN Reason: Shortness of Breath Aspirin (Ecotrin) 81 mg PO DAILY [facility] Last Admin: 02/12/17 10:46 Dose: 81 mg Azithromycin (Zithromax) 250 mg PO DAILY [facility] PRN Reason: Protocol Clopidogrel Bisulfate (Plavix) 75 mg PO DAILY [facility] Last Admin: 02/12/17 10:45 Dose: 75 mg Furosemide (Lasix) 40 mg PO DAILY [facility] Last Admin: 02/12/17 10:46 Dose: 40 mg Guaifenesin (Robitussin) 100 mg PO Q4H PRN PRN Reason: Cough Hydroxychloroquine Sulfate (Plaquenil) 200 mg PO BID [facility] Last Admin: 02/12/17 10:45 Dose: 200 mg Heparin Sodium/Sodium Chloride (Heparin 37383 Units/250ml 1/2 Normal Saline) 25 ,000 units in 250 mls @ 21.228 mls/hr IV .[id number] PRN; Protocol; 18 UNITS/KG/HR PRN Reason: ADJUST RATE PER PROTOCOL Last Titration: 02/12/17 05:22 Dose: 12.88 units/kg/hr, 15.2 mls/hr Ibuprofen (Motrin Tab) 400 mg PO Q6H PRN PRN Reason: Pain, moderate (4-7) Last Admin: 02/12/17 12:19 Dose: 400 mg Insulin Human Regular (Humulin R Med) 0 units SC ACHS [facility] PRN Reason: Protocol Last Admin: 02/12/17 14:29 Dose: 3 units Lisinopril (Zestril) 2.5 mg PO DAILY [facility] Last Admin: 02/12/17 10:44 Dose: 2.5 mg Methylprednisolone (Solu-Medrol) 20 mg IVP Q12 [facility] Last Admin: 02/12/17 10:45 Dose: 20 mg Metoprolol Tartrate (Lopressor) 25 mg PO BID [facility] Last Admin: 02/12/17 10:45 Dose: 25 mg Non-Formulary Medication (Diclofenac Sodium [Voltaren]) 1 % TOP TID [facility] Last Admin: 02/12/17 14:21 Dose: Not Given Pantoprazole Sodium (Protonix Ec Tab) 40 mg PO 0630 [facility] Last Admin: 02/12/17 06:49 Dose: 40 mg - Labs Labs: 02/12/17 10:24 02/12/17 08:20 PT 12.2 Seconds (9.9-11.8) H 02/10/17 16:25 INR 1.13 (0.93-1.08) H 02/10/17 16:25 APTT 60.2 Seconds (23.7-30.8) H 02/12/17 11:05 - Constitutional Appears: Non-toxic, No Acute Distress, Chronically Ill - Head Exam Head Exam: ATRAUMATIC, NORMOCEPHALIC - Eye Exam Eye Exam: EOMI, PERRL Pupil Exam: NORMAL ACCOMODATION, PERRL - ENT Exam ENT Exam: Mucous Membranes Moist, Normal External Ear Exam, TM's Normal Bilaterally - Neck Exam Neck Exam: Full ROM, Normal Inspection - Respiratory Exam Respiratory Exam: Clear to Ausculation Bilateral, NORMAL BREATHING PATTERN. absent: Rales, Rhonchi, Wheezes - Cardiovascular Exam Cardiovascular Exam: REGULAR RHYTHM, RRR, +S1, +S2 - GI/Abdominal Exam GI & Abdominal Exam: Soft, Normal Bowel Sounds. absent: Distended, Tenderness - Extremities Exam Extremities Exam: Full ROM, Normal Inspection - Neurological Exam Neurological Exam: Alert, Awake, CN II-XII Intact, Oriented x3 - Psychiatric Exam Psychiatric exam: Normal Affect, Normal Mood Assessment and Plan - Assessment and Plan (Free Text) Assessment: 46 yo AA female with CAP started on Rocephin and Azithromycin for now. Would consider Flagyl if there are concerns for aspiration pneumonia. Monitor transaminitis which is currently mild. Patient is continuing treatment for SLE and Diabetes. Hobbs cultures. RLL pneumonia. On evaluation today, the patient remains stable with minimal pulmonary symptoms. Can consider use of oral Keflex and Azithromycin to complete 7 days of therapy. Supportive care Thank you for allowing me to participate in the care of the patient, we will follow with you.
--- NOTE | 2017-02-12 19:55 | CP.PCM.PN ---
<Arelis Heath - Last Filed: 02/12/17 20:08> Subjective - Date & Time of Evaluation Date of Evaluation: 02/12/17 Time of Evaluation: 11:00 - Subjective Subjective: Pt seen and evaluated at bedside. Pt reports increased SOB with exertion, and R LE swelling. Afebrile overnight. Objective - Vital Signs/Intake and Output Vital Signs (last 24 hours): Temp Pulse Resp BP Pulse Ox 97 F L 74 20 90/66 L 98 02/12/17 18:15 02/12/17 18:15 02/12/17 18:15 02/12/17 18:15 02/11/17 23:43 Intake and Output: 02/12/17 02/13/17 18:59 06:59 Intake Total 1330 Output Total 1600 Balance -270 - Medications Medications: Current Medications Albuterol/Ipratropium (Duoneb 3 Mg/0.5 Mg (3 Ml) Ud) 3 ml IH QIDRESP PRN PRN Reason: Shortness of Breath Aspirin (Ecotrin) 81 mg PO DAILY [facility] Last Admin: 02/12/17 10:46 Dose: 81 mg Azithromycin (Zithromax) 250 mg PO DAILY [facility] PRN Reason: Protocol Clopidogrel Bisulfate (Plavix) 75 mg PO DAILY [facility] Last Admin: 02/12/17 10:45 Dose: 75 mg Furosemide (Lasix) 40 mg PO DAILY [facility] Last Admin: 02/12/17 10:46 Dose: 40 mg Guaifenesin (Robitussin) 100 mg PO Q4H PRN PRN Reason: Cough Hydroxychloroquine Sulfate (Plaquenil) 200 mg PO BID [facility] Last Admin: 02/12/17 17:25 Dose: 200 mg Heparin Sodium/Sodium Chloride (Heparin 49555 Units/250ml 1/2 Normal Saline) 25 ,000 units in 250 mls @ 21.228 mls/hr IV .[id number] PRN; Protocol; 18 UNITS/KG/HR PRN Reason: ADJUST RATE PER PROTOCOL Last Titration: 02/12/17 05:22 Dose: 12.88 units/kg/hr, 15.2 mls/hr Ibuprofen (Motrin Tab) 400 mg PO Q6H PRN PRN Reason: Pain, moderate (4-7) Last Admin: 02/12/17 12:19 Dose: 400 mg Insulin Human Regular (Humulin R Med) 0 units SC ACHS [facility] PRN Reason: Protocol Last Admin: 02/12/17 17:24 Dose: 5 units Lisinopril (Zestril) 2.5 mg PO DAILY [facility] Last Admin: 02/12/17 10:44 Dose: 2.5 mg Methylprednisolone (Solu-Medrol) 20 mg IVP Q12 [facility] Last Admin: 02/12/17 10:45 Dose: 20 mg Metoprolol Tartrate (Lopressor) 25 mg PO BID [facility] Last Admin: 02/12/17 17:27 Dose: Not Given Non-Formulary Medication (Diclofenac Sodium [Voltaren]) 1 % TOP TID [facility] Last Admin: 02/12/17 17:17 Dose: Not Given Pantoprazole Sodium (Protonix Ec Tab) 40 mg PO 0630 [facility] Last Admin: 02/12/17 06:49 Dose: 40 mg - Labs Labs: 02/12/17 10:24 02/12/17 08:20 PT 12.2 Seconds (9.9-11.8) H 02/10/17 16:25 INR 1.13 (0.93-1.08) H 02/10/17 16:25 APTT 65.4 Seconds (23.7-30.8) H 02/12/17 18:15 - Constitutional Appears: Non-toxic, No Acute Distress - Head Exam Head Exam: ATRAUMATIC, NORMOCEPHALIC - Eye Exam Eye Exam: EOMI, Normal appearance - ENT Exam ENT Exam: Mucous Membranes Moist, Normal Exam - Respiratory Exam Respiratory Exam: Clear to Ausculation Bilateral, NORMAL BREATHING PATTERN - Cardiovascular Exam Cardiovascular Exam: Tachycardia, +S1, +S2 - GI/Abdominal Exam GI & Abdominal Exam: Soft. absent: Tenderness - Exam External exam: absent: Erythema, Lesions - Back Exam Back Exam: absent: CVA tenderness (L), CVA tenderness (R) - Neurological Exam Neurological Exam: Alert, Awake - Skin Skin Exam: Normal Color, Warm Assessment and Plan - Assessment and Plan (Free Text) Plan: 46 year old female with past medical history of hypertension, diabetes, hyperlipidemia, asthma, SLE, migraine SANTOS, uterine fibroids and spinal stenosis presents with hemoptysis and cardiac thrombus on ECHO Cardiac thrombus: heparin drip, heparin protocol Ptt and coag monitor Elevated troponins: 0.31, 0.36, 0.41, .21 ASA 81, Plavix 75, Lisinopril 2.5 mg PO QD, metoprolol 25 mg PO BID Cardiology consulted, help appreciated. HTN: lasix 40, Lisinopril 2.5 mg PO QD, metoprolol 25 mg PO BID Community acquired pneumonia: -Initially Leukocytosis at 12.6, afebrile----> wbc 12.0-->wbc 11 -D-dimer elevated at 2.02 -CTA showed right lower lobe acute pneumonia, no evidence of PE -d/c IV Rocephin and converted Azthromycin from IV to PO (02/12) -Aspiration precaution -O2 via NC prn -blood cx negative at 72 hours and sputum cultures neg -mycoplasma pneu IgG positive, legionella ag negative -ID consulted Dr. Sloan help appreciated Transaminitis -AST/ALT in ED 53/72 -hepatitis panel is negative -monitor and follow up AM labs Asthma: Albuterol/ipratropium IH prn HLD: lipitor 20mg po Diabetes: ISS, FS ACHS, Consistent carb diet SLE: home Hydroxychloroquine Prophylactic measures -Protonix for GI ppx -Lovenox for DVT ppx -Motrin for pain and fever <Stephie Auguste - Last Filed: 02/13/17 17:52> Objective - Vital Signs/Intake and Output Vital Signs (last 24 hours): Temp Pulse Resp BP Pulse Ox 98.8 F 94 H 20 103/71 94 L 02/13/17 06:00 02/13/17 14:00 02/13/17 06:00 02/13/17 13:38 02/13/17 06:00 Intake and Output: 02/13/17 02/13/17 06:59 18:59 Intake Total 1025 0 Output Total 850 1000 Balance 175 -1000 - Medications Medications: Current Medications Aspirin (Ecotrin) 81 mg PO DAILY [facility] Last Admin: 02/13/17 10:11 Dose: 81 mg Azithromycin (Zithromax) 250 mg PO DAILY [facility] PRN Reason: Protocol Last Admin: 02/13/17 10:10 Dose: 250 mg Cephalexin Monohydrate (Keflex) 500 mg PO BID [facility] PRN Reason: Protocol Last Admin: 02/13/17 17:25 Dose: 500 mg Furosemide (Lasix) 40 mg PO BID [facility] Guaifenesin (Robitussin) 100 mg PO Q4H PRN PRN Reason: Cough Hydroxychloroquine Sulfate (Plaquenil) 200 mg PO BID [facility] Last Admin: 02/13/17 17:25 Dose: 200 mg Milrinone Lactate/Dextrose (Primacor 20mg/100ml D5w) 100 mls @ 13.329 mls/hr IV .Q7H31M PRN; Protocol; 0.375 MCG/KG/MIN PRN Reason: TITRATE PER MD ORDER Last Admin: 02/13/17 13:38 Dose: 0.375 mcg/kg/min, 13.329 mls/hr Ibuprofen (Motrin Tab) 400 mg PO Q6H PRN PRN Reason: Pain, moderate (4-7) Last Admin: 02/12/17 12:19 Dose: 400 mg Insulin Human Regular (Humulin R Med) 0 units SC ACHS [facility] PRN Reason: Protocol Last Admin: 02/13/17 17:24 Dose: 8 units Lisinopril (Zestril) 2.5 mg PO DAILY [facility] Last Admin: 02/13/17 10:13 Dose: Not Given Metoprolol Tartrate (Lopressor) 25 mg PO BID [facility] Last Admin: 02/13/17 10:10 Dose: 25 mg Non-Formulary Medication (Diclofenac Sodium [Voltaren]) 1 % TOP TID [facility] Last Admin: 02/13/17 17:11 Dose: Not Given Pantoprazole Sodium (Protonix Ec Tab) 40 mg PO 0630 [facility] Last Admin: 02/13/17 05:48 Dose: 40 mg Warfarin Sodium (Coumadin) 10 mg PO 1800 [facility] PRN Reason: Protocol Stop: 02/15/17 08:00 - Labs Labs: 02/13/17 05:30 02/13/17 05:30 PT 12.2 Seconds (9.9-11.8) H 02/10/17 16:25 INR 1.13 (0.93-1.08) H 02/10/17 16:25 APTT 44.2 Seconds (23.7-30.8) H 02/13/17 08:30 Attending/Attestation - Attestation I have personally seen and examined this patient.: Yes I have fully participated in the care of the patient.: Yes I have reviewed all pertinent clinical information, including history, physical exam and plan: Yes Notes (Text): 02/13/17 17:50 Patient seen and examined at bedside. Labs, vitals and orders reviewed. No Hemoptysis reported. She feels better overall and has noticed some swelling in her right thigh. Ambulating to bathroom comfortably, denies any exertional dyspnea. Hold statins and continue AC with IV heparin. Agree with the rest of the plan as outlined above.
[2017-02-12 22:07] LABS: HEMATOCRIT 35.7 % (36.0-48.0); MEAN CELL VOLUME 74.5 fL (80.0-105.0); MEAN CORPUSCULAR HEMOGLOBIN 24.4 pg (25.0-35.0); MEAN CORPUSCULAR HGB CONC 32.8 g/dl (31.0-37.0); MEAN PLATELET VOLUME 9.4 fl (7.0-11.0); RED CELL DISTRIBUTION WIDTH 14.6 % (11.5-14.5); WHITE BLOOD COUNT 13.1 10^3/ul (4.5-11.0)
[2017-02-13] MEDS: Pantoprazole 40 mg EC Tab PO SCH (05:48)
[2017-02-13 07:29] LABS: ADD MANUAL DIFF? NO
--- NOTE | 2017-02-13 07:37 | PN ---
DATE: 02/12/2017 This patient is in room 268, bed 2. This progress note is being written on behalf of Dr. Gaston, whom I am covering. REASON FOR CONSULTATION AND FOLLOWUP: Elevated troponin, cardiomyopathy, thrombus formation in the a pex of LV. HISTORY OF PRESENT ILLNESS: The patient is a 46-year-old female with known case of lupus since the l ast 3 years, asthma, hypertension, diabetes, pituitary adenoma, spinal stenosis, hyperlipidemia. Adm itted with history that a few weeks ago she started getting shortness of breath along with a cough an d later on it changed to some specks of blood-tinged sputum in last 3-4 days. The patient says that since last few weeks she is also sleeping on 2 pillows and she also gets PND. Recently also, she not es some swelling of her legs. The patient denies any chest pain at present. The patient states that in 09/2016, she saw Dr. Anton in [place], who did echo and stress test and she was told to be nor mal. The patient's states several years ago she had a cardiac catheterization for chest pain and she also was told to be normal. The patient now in telemetry on anticoagulation. Denies chest pain. H er breathing is better. PHYSICAL EXAMINATION: VITAL SIGNS: Blood pressure 104/75, respirations 18, pulse 99. The patient is afebrile. HEAD: Normocephalic. EYES: Pupils normal. Conjunctivae normal. NOSE AND THROAT: Normal. NECK: JVP low. Carotid equal. THORAX: AP diameter normal. LUNGS: No significant rales. CARDIOVASCULAR: S1, S2. ABDOMEN: Protuberant. PERIPHERIES: No clubbing, no cyanosis. LABORATORIES: Shows WBC 11.0, hemoglobin 11.8, hematocrit 36.6, platelet 405. Sodium 134, potassium 3.7, BUN 24, creatinine 1.2. Troponin first one was 0.41, second one 0.22. First troponin 0.31, se cond one 0.36, third one 0.41. AST 50, ALT 65, alkaline phosphatase 165. DIAGNOSES: Cardiomyopathy with reduced left ventricular systolic function and left ventricle thrombu s, pneumonia, elevated troponin with possible non-ST segment elevation myocardial infarction, lupus, asthma, hypertension, spinal stenosis, hyperlipidemia, obesity. PLAN: The patient is getting aspirin 81 mg daily, Plavix 75 mg daily, heparin drip, furosemide 40 p. o. daily, metoprolol 25 b.i.d., hydroxychloroquine sulfate 200 mg b.i.d., azithromycin 250 mg p.o. da cat, lisinopril 2.5 mg p.o. daily. We will continue present therapy and will repeat troponin along w ith CMP in the morning. From tomorrow morning, Dr. Gaston will follow the patient. Colleen Andrade MD cc: [id number] TT: 02/12/2017 13:06:09 Confirmation # [id number] Dictation # [id number]
[2017-02-13 07:39] LABS: BASO # 0.01 K/mm3 (0.0-2.0); BASO % 0.1 % (0.0-3.0); GRAN % 81.7 % (50.0-68.0); LYMPH # 2.4 (1.2-3.4); LYMPH % 14.3 % (22.0-35.0); MEAN CELL VOLUME 74.7 fL (80.0-105.0); MEAN CORPUSCULAR HEMOGLOBIN 24.3 pg (25.0-35.0); MEAN CORPUSCULAR HGB CONC 32.5 g/dl (31.0-37.0); MEAN PLATELET VOLUME 9.6 fl (7.0-11.0); MONO # 0.7 (0.1-0.6); MONO % 3.9 % (1.0-6.0); PLATELET COUNT 437 10^3/uL (120.0-450.0); RED CELL DISTRIBUTION WIDTH 14.6 % (11.5-14.5); WHITE BLOOD COUNT 16.9 10^3/ul (4.5-11.0)
[2017-02-13 07:51] LABS: ALB/GLOB RATIO 0.9 (1.1-1.8); ALKALINE PHOSPHATASE 283 U/L (38-133); ALT/SGPT 343 U/L (7-56); AST/SGOT 326 U/L (15-39); BILIRUBIN,TOTAL 1.2 mg/dL (0.2-1.3); BLOOD UREA NITROGEN 24 mg/dL (7-21); CALCIUM 8.9 mg/dL (8.4-10.5); CARBON DIOXIDE 20 mmol/L (21-33); CHLORIDE 104 mmol/L (98-107); GFR AFRICAN-AMERICAN > 60; GLUCOSE,RANDOM 266 mg/dL (70-110); POTASSIUM 4.3 mmol/L (3.6-5.0); SODIUM 135 mmol/L (132-148); TOTAL PROTEIN 6.6 g/dL (5.8-8.3)
[2017-02-13] MEDS: Insulin Reg-MEDIUM-Coverage SC SCH ×4 (08:07→21:50)
[2017-02-13 08:12] LABS: TROPONIN I 0.12 ng/mL
[2017-02-13] MEDS: MethylPREDNISolone 40 mg Vial IVP SCH (10:12)
[2017-02-13] MEDS: DICLOFENAC SODIUM 1% TOP SCH ×2 (10:19→17:11)
[2017-02-13] MEDS ORDERED: Midazolam 2 MG/2 ML VIAL ONE ×2 (10:51→12:05)
[2017-02-13] MEDS ORDERED: Iodixanol 320 MG/ML 200 ML BOTTLE IV ONE (10:52)
[2017-02-13] MEDS ORDERED: Lidocaine 2% Inj (20ml) ONE (10:52)
--- NOTE | 2017-02-13 11:10 | CP.PCM.PN ---
<Derek Oconnell - Last Filed: 02/13/17 11:11> Subjective - Date & Time of Evaluation Date of Evaluation: 02/13/17 Time of Evaluation: 11:00 - Subjective Subjective: Med progress note. Attending: Dr. Martins Pt seen and examined at bedside. No acute distress. No events overnight. Pt may go for cardiac cath today. On heparin drip. No fevers, chills, hemoptysis, vomiting, diarrhea. Objective - Vital Signs/Intake and Output Vital Signs (last 24 hours): Temp Pulse Resp BP Pulse Ox 98.8 F 98 H 20 114/72 94 L 02/13/17 06:00 02/13/17 06:00 02/13/17 06:00 02/13/17 10:10 02/13/17 06:00 Intake and Output: 02/13/17 02/13/17 06:59 18:59 Intake Total 1025 Output Total 850 Balance 175 - Medications Medications: Current Medications Albuterol/Ipratropium (Duoneb 3 Mg/0.5 Mg (3 Ml) Ud) 3 ml IH QIDRESP PRN PRN Reason: Shortness of Breath Aspirin (Ecotrin) 81 mg PO DAILY [facility] Last Admin: 02/13/17 10:11 Dose: 81 mg Azithromycin (Zithromax) 250 mg PO DAILY [facility] PRN Reason: Protocol Last Admin: 02/13/17 10:10 Dose: 250 mg Cephalexin Monohydrate (Keflex) 500 mg PO BID [facility] PRN Reason: Protocol Last Admin: 02/13/17 10:11 Dose: 500 mg Clopidogrel Bisulfate (Plavix) 75 mg PO DAILY [facility] Last Admin: 02/13/17 10:10 Dose: 75 mg Furosemide (Lasix) 40 mg PO DAILY [facility] Last Admin: 02/13/17 10:10 Dose: 40 mg Guaifenesin (Robitussin) 100 mg PO Q4H PRN PRN Reason: Cough Hydroxychloroquine Sulfate (Plaquenil) 200 mg PO BID [facility] Last Admin: 02/13/17 10:11 Dose: 200 mg Heparin Sodium/Sodium Chloride (Heparin 29226 Units/250ml 1/2 Normal Saline) 25 ,000 units in 250 mls @ 21.228 mls/hr IV .[id number] PRN; Protocol; 18 UNITS/KG/HR PRN Reason: ADJUST RATE PER PROTOCOL Last Admin: 02/12/17 21:52 Dose: 12.88 units/kg/hr, 15.19 mls/hr Ibuprofen (Motrin Tab) 400 mg PO Q6H PRN PRN Reason: Pain, moderate (4-7) Last Admin: 02/12/17 12:19 Dose: 400 mg Insulin Human Regular (Humulin R Med) 0 units SC ACHS [facility] PRN Reason: Protocol Last Admin: 02/13/17 08:07 Dose: 5 units Lisinopril (Zestril) 2.5 mg PO DAILY [facility] Last Admin: 02/13/17 10:13 Dose: Not Given Methylprednisolone (Solu-Medrol) 20 mg IVP Q12 [facility] Last Admin: 02/13/17 10:12 Dose: 20 mg Metoprolol Tartrate (Lopressor) 25 mg PO BID [facility] Last Admin: 02/13/17 10:10 Dose: 25 mg Non-Formulary Medication (Diclofenac Sodium [Voltaren]) 1 % TOP TID [facility] Last Admin: 02/13/17 10:19 Dose: Not Given Pantoprazole Sodium (Protonix Ec Tab) 40 mg PO 0630 [facility] Last Admin: 02/13/17 05:48 Dose: 40 mg - Labs Labs: 02/13/17 05:30 02/13/17 05:30 PT 12.2 Seconds (9.9-11.8) H 02/10/17 16:25 INR 1.13 (0.93-1.08) H 02/10/17 16:25 APTT 44.2 Seconds (23.7-30.8) H 02/13/17 08:30 - Constitutional Appears: Non-toxic, No Acute Distress - Head Exam Head Exam: ATRAUMATIC, NORMAL INSPECTION, NORMOCEPHALIC - Eye Exam Eye Exam: EOMI - ENT Exam ENT Exam: Mucous Membranes Moist - Neck Exam Neck Exam: Full ROM, Normal Inspection - Respiratory Exam Respiratory Exam: Decreased Breath Sounds - Cardiovascular Exam Cardiovascular Exam: +S1, +S2 - GI/Abdominal Exam GI & Abdominal Exam: Soft, Normal Bowel Sounds. absent: Tenderness - Extremities Exam Extremities Exam: Full ROM, Normal Inspection - Neurological Exam Neurological Exam: Alert, Awake, Oriented x3 - Psychiatric Exam Psychiatric exam: Normal Affect, Normal Mood - Skin Skin Exam: Dry, Intact, Normal Color, Warm Assessment and Plan - Assessment and Plan (Free Text) Assessment: This is a 46 year old female with past medical history of hypertension, diabetes , hyperlipidemia, asthma, SLE, migraine SANTOS, uterine fibroids and spinal stenosis presenting with hemoptysis and cardiac thrombus on ECHO Cardiac thrombus: heparin drip, heparin protocol Ptt and coag monitor Elevated troponins: 0.31, 0.36, 0.41, .21, trending down ASA 81, Plavix 75, Lisinopril 2.5 mg PO QD, metoprolol 25 mg PO BID Cardiology consulted, help appreciated. may go for cath today pt is NPO for now HTN: lasix 40 mg PO daily, Lisinopril 2.5 mg PO QD, metoprolol 25 mg PO BID Community acquired pneumonia: -WBC 16.9 today -D-dimer elevated at 2.02 -CTA showed right lower lobe acute pneumonia, no evidence of PE -d/c IV Rocephin and converted Azthromycin from IV to PO (02/12) -Aspiration precaution -O2 via NC prn -blood cx negative at 72 hours and sputum cultures neg -mycoplasma pneu IgG positive, legionella ag negative -ID consulted Dr. Sloan help appreciated -continue azithromycin 250 PO daily -continue cephalexin 500 mg PO daily Transaminitis -AST/ALT in ED 53/72 -hepatitis panel is negative -monitor and follow up AM labs Asthma: Albuterol/ipratropium IH prn HLD: lipitor on hold Diabetes: ISS, FS ACHS, Consistent carb diet SLE: home Hydroxychloroquine Prophylactic measures -Protonix for GI ppx -heparin drip -Motrin for pain and fever discussed with Dr. Martins <Rob Martins - Last Filed: 02/14/17 08:06> Objective - Vital Signs/Intake and Output Vital Signs (last 24 hours): Temp Pulse Resp BP Pulse Ox 97.8 F 101 H 19 100/53 L 98 02/14/17 06:00 02/14/17 06:00 02/14/17 06:00 02/14/17 06:00 02/14/17 06:00 Intake and Output: 02/14/17 02/14/17 06:59 18:59 Intake Total 1200 Balance 1200 - Medications Medications: Current Medications Aspirin (Ecotrin) 81 mg PO DAILY [facility] Last Admin: 02/13/17 10:11 Dose: 81 mg Azithromycin (Zithromax) 250 mg PO DAILY [facility] PRN Reason: Protocol Last Admin: 02/13/17 10:10 Dose: 250 mg Cephalexin Monohydrate (Keflex) 500 mg PO BID [facility] PRN Reason: Protocol Last Admin: 02/13/17 17:25 Dose: 500 mg Furosemide (Lasix) 40 mg PO BID [facility] Last Admin: 02/13/17 18:40 Dose: 40 mg Guaifenesin (Robitussin) 100 mg PO Q4H PRN PRN Reason: Cough Hydroxychloroquine Sulfate (Plaquenil) 200 mg PO BID [facility] Last Admin: 02/13/17 17:25 Dose: 200 mg Milrinone Lactate/Dextrose (Primacor 20mg/100ml D5w) 100 mls @ 13.329 mls/hr IV .Q7H31M PRN; Protocol; 0.375 MCG/KG/MIN PRN Reason: TITRATE PER MD ORDER Last Admin: 02/13/17 13:38 Dose: 0.375 mcg/kg/min, 13.329 mls/hr Ibuprofen (Motrin Tab) 400 mg PO Q6H PRN PRN Reason: Pain, moderate (4-7) Last Admin: 02/14/17 06:15 Dose: 400 mg Insulin Human Regular (Humulin R Med) 0 units SC ACHS [facility] PRN Reason: Protocol Last Admin: 02/13/17 21:50 Dose: 3 units Lisinopril (Zestril) 2.5 mg PO DAILY [facility] Last Admin: 02/13/17 10:13 Dose: Not Given Metoprolol Tartrate (Lopressor) 25 mg PO BID [facility] Last Admin: 02/13/17 18:39 Dose: 25 mg Non-Formulary Medication (Diclofenac Sodium [Voltaren]) 1 % TOP TID [facility] Last Admin: 02/13/17 17:11 Dose: Not Given Pantoprazole Sodium (Protonix Ec Tab) 40 mg PO 0630 [facility] Last Admin: 02/14/17 06:15 Dose: 40 mg Warfarin Sodium (Coumadin) 10 mg PO 1800 [facility] PRN Reason: Protocol Stop: 02/15/17 08:00 - Labs Labs: 02/14/17 06:45 02/14/17 06:45 PT 13.8 Seconds (9.9-11.8) H 06/06/17 06:45 INR 1.28 (0.93-1.08) H 02/14/17 06:45 APTT 44.2 Seconds (23.7-30.8) H 02/13/17 08:30 Attending/Attestation - Attestation I have personally seen and examined this patient.: Yes I have fully participated in the care of the patient.: Yes I have reviewed all pertinent clinical information, including history, physical exam and plan: Yes Notes (Text): 02/13/17 46 year old female with multiple past medical problems who presented with complaint of cough and hemoptysis. She was found to have pneumonia and started on antibiotics. She was also found to have cardiac thrombus with elevated cardiac enzymes for which she is on heparin drip for anticoagulation. She is also on aspirin, plavix, lisinopril and metoprolol. Statin was held due to elevated LFTs. Cardiology is following and plan is for cardiac cath today. Will continue to monitor LFTs closely. Consider GI evaluation if they continue to increase. Hepatitis panel was negative. US abdomen showed fatty liver. Ultrasound also showed 7 mm stone with ?mild right hydronephrosis. She denies any flank pain or dysuria. Recommended outpatient urology follow up. Rob Martins MD Hospitalist.
[2017-02-13] MEDS ORDERED: Sodium Chloride 0.45% 1,000 ML IV SCH (12:30)
[2017-02-13] MEDS ORDERED: Primacor 1 mg/ml Inj (10 ml) IVP ONE ×2 (12:34)
--- NOTE | 2017-02-13 13:36 | CARDCATH ---
PROCEDURE DATE: 02/13/2017 HISTORY OF PRESENT ILLNESS: The patient is a 46-year-old woman who presents with progressive shortne ss of breath. She was found to have elevated troponins as well as an ejection fraction of 15% with a n LV thrombus on echocardiogram. Because of this, cardiac catheterization was recommended. PROCEDURE: Left heart catheterization with coronary angiography and supra-aortic valvular injection. There were no complications. The findings on catheterization revealed a right dominant circulation. The RCA was unremarkable. The circumflex artery and obtuse marginal branches were free of significant disease. The LAD revealed diffuse atherosclerosis without a discrete critical lesion. Supra-aortic valvular injection revealed no aortic insufficiency. The left ventricle was not entered because of the presence of an LV thrombus on echocardiogram. Angio-Seal was used to close the femoral artery site. The patient tolerated the procedure well. In summary, the procedure revealed: 1. Noncritical coronary artery disease. 2. No aortic insufficiency. 3. Severe dilated cardiomyopathy and left ventricular thrombus on echocardiogram. Given these findings, we will start the patient on IV Lasix as well as IV milrinone. The patient will need long-term anticoagulation. Coumadin has been ordered for today. Ric Gaston MD cc: [id number] TT: 02/13/2017 13:35:47 en
[2017-02-13] MEDS: Milrinone 20mg/100ml D5W 100 ML IV PRN (13:38)
--- NOTE | 2017-02-13 15:37 | CP.PCM.PN ---
Subjective - Date & Time of Evaluation Date of Evaluation: 02/13/17 Time of Evaluation: 13:00 - Subjective Subjective: 46 y/o F w/o any new clinical findings overnight. Some residual cough, SOB and lethargy. Went for cardiac cath today t/o r/o coronary causes. Objective - Vital Signs/Intake and Output Vital Signs (last 24 hours): Temp Pulse Resp BP Pulse Ox 98.8 F 94 H 20 103/71 94 L 02/13/17 06:00 02/13/17 14:00 02/13/17 06:00 02/13/17 13:38 02/13/17 06:00 Intake and Output: 02/13/17 02/13/17 06:59 18:59 Intake Total 1025 0 Output Total 850 1000 Balance 175 -1000 - Medications Medications: Current Medications Aspirin (Ecotrin) 81 mg PO DAILY [facility] Last Admin: 02/13/17 10:11 Dose: 81 mg Azithromycin (Zithromax) 250 mg PO DAILY [facility] PRN Reason: Protocol Last Admin: 02/13/17 10:10 Dose: 250 mg Cephalexin Monohydrate (Keflex) 500 mg PO BID [facility] PRN Reason: Protocol Last Admin: 02/13/17 10:11 Dose: 500 mg Furosemide (Lasix) 40 mg PO BID [facility] Guaifenesin (Robitussin) 100 mg PO Q4H PRN PRN Reason: Cough Hydroxychloroquine Sulfate (Plaquenil) 200 mg PO BID [facility] Last Admin: 02/13/17 10:11 Dose: 200 mg Milrinone Lactate/Dextrose (Primacor 20mg/100ml D5w) 100 mls @ 13.329 mls/hr IV .Q7H31M PRN; Protocol; 0.375 MCG/KG/MIN PRN Reason: TITRATE PER MD ORDER Last Admin: 02/13/17 13:38 Dose: 0.375 mcg/kg/min, 13.329 mls/hr Sodium Chloride (Sodium Chloride 0.45%) 1,000 mls @ 100 mls/hr IV .Q10H [facility] Stop: 02/13/17 17:00 Ibuprofen (Motrin Tab) 400 mg PO Q6H PRN PRN Reason: Pain, moderate (4-7) Last Admin: 02/12/17 12:19 Dose: 400 mg Insulin Human Regular (Humulin R Med) 0 units SC ACHS [facility] PRN Reason: Protocol Last Admin: 02/13/17 13:17 Dose: Not Given Lisinopril (Zestril) 2.5 mg PO DAILY [facility] Last Admin: 02/13/17 10:13 Dose: Not Given Metoprolol Tartrate (Lopressor) 25 mg PO BID [facility] Last Admin: 02/13/17 10:10 Dose: 25 mg Non-Formulary Medication (Diclofenac Sodium [Voltaren]) 1 % TOP TID [facility] Last Admin: 02/13/17 10:19 Dose: Not Given Pantoprazole Sodium (Protonix Ec Tab) 40 mg PO 0630 [facility] Last Admin: 02/13/17 05:48 Dose: 40 mg Warfarin Sodium (Coumadin) 10 mg PO 1800 [facility] PRN Reason: Protocol Stop: 02/15/17 08:00 - Labs Labs: 02/13/17 05:30 02/13/17 05:30 PT 12.2 Seconds (9.9-11.8) H 02/10/17 16:25 INR 1.13 (0.93-1.08) H 02/10/17 16:25 APTT 44.2 Seconds (23.7-30.8) H 02/13/17 08:30 - Constitutional Appears: Non-toxic - Head Exam Head Exam: ATRAUMATIC - Eye Exam Eye Exam: EOMI, Normal appearance Pupil Exam: NORMAL ACCOMODATION - ENT Exam ENT Exam: Mucous Membranes Moist, Normal Exam - Respiratory Exam Respiratory Exam: Clear to Ausculation Bilateral - Cardiovascular Exam Cardiovascular Exam: REGULAR RHYTHM - GI/Abdominal Exam GI & Abdominal Exam: Normal Bowel Sounds - Extremities Exam Extremities Exam: Full ROM, Normal Capillary Refill - Back Exam Back Exam: NORMAL INSPECTION - Neurological Exam Neurological Exam: Awake, Oriented x3 - Skin Skin Exam: Normal Color Assessment and Plan - Assessment and Plan (Free Text) Assessment: 46 y/o F found to have new onset L HF w/ RHF New EF 15% w/ dialated cardiomyopathy . Uncertain cause. Cardiac cath done today w/o any new coronary lesions present. Started on Milrinone per cardiology . May need work up fro other causes of dialated cardiomyopathy . From Pulm prospective, no bronchospasm, wheezing or signs of asthma. Steroids stopped. PRN albuterol as needed.
[2017-02-13 18:28] LABS: MAGNESIUM 2.1 mg/dL (1.7-2.2); PHOSPHOROUS 3.6 mg/dL (2.5-4.5)
--- NOTE | 2017-02-13 19:59 | CP.PCM.PN ---
Subjective - Date & Time of Evaluation Date of Evaluation: 02/13/17 Time of Evaluation: 18:00 - Subjective Subjective: Infectious Disease Follow Up: February 13, 2017 46 yo AA female with extensive past medical history presenting with hemoptysis. She was treated with Azithromycin without improvement. The patient reports headaches, shortness of breath, nausea, vomiting, and chest tightness. The patient has leukocytosis and potential pneumonia. Clot seen in echocardiogram. The patient has a history of Lupus, asthma, diabetes. Cardiac cath with findings of dialated cardiomyopathy and EF of 15%. On Ceftriaxone and Azithromycin. No major complaints. Objective - Vital Signs/Intake and Output Vital Signs (last 24 hours): Temp Pulse Resp BP Pulse Ox 97.5 F L 102 H 22 106/50 L 94 L 02/13/17 18:01 02/13/17 18:39 02/13/17 18:01 02/13/17 18:40 02/13/17 06:00 Intake and Output: 02/13/17 02/14/17 18:59 06:59 Intake Total 0 Output Total 1000 Balance -1000 - Medications Medications: Current Medications Aspirin (Ecotrin) 81 mg PO DAILY [facility] Last Admin: 02/13/17 10:11 Dose: 81 mg Azithromycin (Zithromax) 250 mg PO DAILY [facility] PRN Reason: Protocol Last Admin: 02/13/17 10:10 Dose: 250 mg Cephalexin Monohydrate (Keflex) 500 mg PO BID [facility] PRN Reason: Protocol Last Admin: 02/13/17 17:25 Dose: 500 mg Furosemide (Lasix) 40 mg PO BID [facility] Last Admin: 02/13/17 18:40 Dose: 40 mg Guaifenesin (Robitussin) 100 mg PO Q4H PRN PRN Reason: Cough Hydroxychloroquine Sulfate (Plaquenil) 200 mg PO BID [facility] Last Admin: 02/13/17 17:25 Dose: 200 mg Milrinone Lactate/Dextrose (Primacor 20mg/100ml D5w) 100 mls @ 13.329 mls/hr IV .Q7H31M PRN; Protocol; 0.375 MCG/KG/MIN PRN Reason: TITRATE PER MD ORDER Last Admin: 02/13/17 13:38 Dose: 0.375 mcg/kg/min, 13.329 mls/hr Ibuprofen (Motrin Tab) 400 mg PO Q6H PRN PRN Reason: Pain, moderate (4-7) Last Admin: 02/12/17 12:19 Dose: 400 mg Insulin Human Regular (Humulin R Med) 0 units SC ACHS [facility] PRN Reason: Protocol Last Admin: 02/13/17 17:24 Dose: 8 units Lisinopril (Zestril) 2.5 mg PO DAILY [facility] Last Admin: 02/13/17 10:13 Dose: Not Given Metoprolol Tartrate (Lopressor) 25 mg PO BID [facility] Last Admin: 02/13/17 18:39 Dose: 25 mg Non-Formulary Medication (Diclofenac Sodium [Voltaren]) 1 % TOP TID [facility] Last Admin: 02/13/17 17:11 Dose: Not Given Pantoprazole Sodium (Protonix Ec Tab) 40 mg PO 0630 [facility] Last Admin: 02/13/17 05:48 Dose: 40 mg Warfarin Sodium (Coumadin) 10 mg PO 1800 [facility] PRN Reason: Protocol Stop: 02/15/17 08:00 - Labs Labs: 02/13/17 05:30 02/13/17 05:30 PT 12.2 Seconds (9.9-11.8) H 02/10/17 16:25 INR 1.13 (0.93-1.08) H 02/10/17 16:25 APTT 44.2 Seconds (23.7-30.8) H 02/13/17 08:30 - Constitutional Appears: Non-toxic, No Acute Distress, Chronically Ill - Head Exam Head Exam: ATRAUMATIC, NORMOCEPHALIC - Eye Exam Eye Exam: EOMI Pupil Exam: NORMAL ACCOMODATION, PERRL - ENT Exam ENT Exam: Mucous Membranes Moist, Normal External Ear Exam, TM's Normal Bilaterally - Neck Exam Neck Exam: Full ROM, Normal Inspection - Respiratory Exam Respiratory Exam: Clear to Ausculation Bilateral, NORMAL BREATHING PATTERN. absent: Rales, Rhonchi, Wheezes - Cardiovascular Exam Cardiovascular Exam: REGULAR RHYTHM, RRR, +S1, +S2 - GI/Abdominal Exam GI & Abdominal Exam: Soft, Normal Bowel Sounds. absent: Distended, Tenderness - Extremities Exam Extremities Exam: Full ROM, Normal Inspection - Neurological Exam Neurological Exam: Alert, Awake, CN II-XII Intact, Oriented x3 - Psychiatric Exam Psychiatric exam: Normal Affect, Normal Mood - Skin Skin Exam: Intact, Normal Color Assessment and Plan - Assessment and Plan (Free Text) Assessment: 46 yo AA female with CAP started on Rocephin and Azithromycin for now. Would consider Flagyl if there are concerns for aspiration pneumonia. Monitor transaminitis which is currently mild. Patient is continuing treatment for SLE and Diabetes. Hobbs cultures. RLL pneumonia. On evaluation today, the patient remains stable with minimal pulmonary symptoms. Can consider use of oral Keflex and Azithromycin to complete 7 days of therapy. Supportive care Thank you for allowing me to participate in the care of the patient, we will follow with you.
[2017-02-14] MEDS: Pantoprazole 40 mg EC Tab PO SCH (06:15)
[2017-02-14 07:10] LABS: ADD MANUAL DIFF? NO
[2017-02-14 07:16] LABS: BASO # 0.01 K/mm3 (0.0-2.0); BASO % 0.1 % (0.0-3.0); GRAN # 14.28 (1.4-6.5); GRAN % 77.9 % (50.0-68.0); HEMATOCRIT 34.1 % (36.0-48.0); LYMPH # 2.6 (1.2-3.4); LYMPH % 14.2 % (22.0-35.0); MEAN CELL VOLUME 75.1 fL (80.0-105.0); MEAN PLATELET VOLUME 9.3 fl (7.0-11.0); MONO # 1.4 (0.1-0.6); MONO % 7.8 % (1.0-6.0); PLATELET COUNT 427 10^3/uL (120.0-450.0); RED CELL DISTRIBUTION WIDTH 14.4 % (11.5-14.5); WHITE BLOOD COUNT 18.3 10^3/ul (4.5-11.0)
[2017-02-14 07:28] LABS: INR 1.28 (0.93-1.08)
[2017-02-14 07:35] LABS: ALB/GLOB RATIO 0.9 (1.1-1.8); ALKALINE PHOSPHATASE 291 U/L (38-133); ALT/SGPT 332 U/L (7-56); AST/SGOT 192 U/L (15-39); BLOOD UREA NITROGEN 22 mg/dL (7-21); CALCIUM 8.6 mg/dL (8.4-10.5); CARBON DIOXIDE 23 mmol/L (21-33); CHLORIDE 102 mmol/L (98-107); GFR AFRICAN-AMERICAN > 60; MAGNESIUM 1.9 mg/dL (1.7-2.2); PHOSPHOROUS 2.5 mg/dL (2.5-4.5); POTASSIUM 3.7 mmol/L (3.6-5.0); SODIUM 133 mmol/L (132-148); TOTAL PROTEIN 6.3 g/dL (5.8-8.3)
[2017-02-14 07:46] LABS: GLUCOSE,RANDOM 311 mg/dL (70-110)
[2017-02-14] MEDS: Insulin Reg-MEDIUM-Coverage SC SCH ×4 (08:37→22:20)
[2017-02-14] MEDS: DICLOFENAC SODIUM 1% TOP SCH ×3 (10:27→19:00)
--- NOTE | 2017-02-14 11:48 | PN ---
DATE: 02/14/2017 The patient seen and examined at bedside. She is comfortable. She is sitting in the chair, talks full sentences, not in respiratory or otherwise distress. She did have 1 episode where she coughed up speckle of blood. She did not have any hemoptysis yesterday at all. PHYSICAL EXAMINATION: VITAL SIGNS: Heart rate 117, blood pressure 133/70, respiratory rate 19, oxygen saturation 98% on room air. HEAD AND NECK: Atraumatic. LUNGS: Clear to auscultation bilaterally. HEART: Regular rate and rhythm. S1, S2 normal. ABDOMEN: Soft, nontender, nondistended. MUSCULOSKELETAL: Trace bilateral pedal and ankle edema. NEUROLOGIC: The patient moves all extremities spontaneously. SKIN: Moist. PSYCHIATRIC: The patient is alert and oriented x 3. LABORATORY DATA: WBC 18.3, hemoglobin 10.9, platelet count 427. Sodium 133, potassium 3.7, chloride 102, carbon dioxide 23, BUN 22, creatinine 1, glucose 311, AST 192 down from 326, ALT 332 down from 342. INR 1.28. Hepatitis profile negative. ____ negative. Streptococcus pneumoniae antigen negative. Mycoplasma IgM pending. Urine for legionella antigen negative. MEDICATIONS: Aspirin, azithromycin, Keflex, Lasix 40 mg p.o. b.i.d., potassium , p.r.n., Plaquenil, regular insulin sliding scale medium protocol, lisinopril, metoprolol, milrinone, warfarin 10 mg p.o. ASSESSMENT AND PLAN: This is a 46-year-old lady who presented with community- acquired pneumonia in the setting of severe cardiomyopathy with intracardiac thrombus. The patient was treated with antibiotics, steroids for her community- acquired pneumonia. Urine for legionella and streptococcal antigen came back negative. QuantiFERON test came back negative for tuberculosis exposure. Hepatitis profile came back negative as well. The patient got a cardiac catheterization yesterday which did not reveal occlusive coronary artery disease. Possibility of myocarditis of autoimmune or infected etiology with resulting dilated cardiomyopathy cannot be ruled out and cardiology service is following the patient as well. The patient did have speckle of blood in her sputum. It is most likely related to the infiltrate in the right middle lobe. I would delay elective endoscopic procedure including bronchoscopy until her cardiac status optimized and would consider it only 6 weeks after acute myocardial ischemia (patient did have troponin leak) and only if hemoptysis is not resolved by then. I will continue with therapeutic anticoagulation with heparin until INR becomes therapeutic with warfarin as patient has intracardiac thrombus. I would continue with antitussives steroids, and antibiotics. ccm time 40 min Abe Mike MD cc: [id number] TT: 02/14/2017 11:48:10 Confirmation # [id number] Dictation # [id number] tn MTDD
[2017-02-14] MEDS: guaiFENesin 100 mg/5 ml Syrup UD PO SCH ×3 (12:39→22:41)
[2017-02-14] MEDS: MethylPREDNISolone 40 mg Vial IVP SCH ×2 (12:39→21:17)
[2017-02-14] MEDS ORDERED: Insulin Detemir 100 units/ml Vial (Levemir) SC STA ×2 (13:07→13:10)
--- NOTE | 2017-02-14 13:10 | CP.PCM.PN ---
<Derek Oconnell - Last Filed: 02/14/17 13:17> Subjective - Date & Time of Evaluation Date of Evaluation: 02/14/17 Time of Evaluation: 13:00 - Subjective Subjective: Med progress note. Attending: Dr. Martins Pt seen and examined at bedside. No acute distress. No events overnight. S/P cardiac cath with showed noncritical cad, severe dilated cardiomyopathy, ef 15 percent. No fevers, chills, vomiting, diarrhea. Objective - Vital Signs/Intake and Output Vital Signs (last 24 hours): Temp Pulse Resp BP Pulse Ox 98 F 111 H 20 123/70 98 02/14/17 12:00 02/14/17 12:00 02/14/17 12:00 02/14/17 12:00 02/14/17 06:00 Intake and Output: 02/14/17 02/14/17 06:59 18:59 Intake Total 1200 Balance 1200 - Medications Medications: Current Medications Aspirin (Ecotrin) 81 mg PO DAILY [facility] Last Admin: 02/14/17 10:27 Dose: 81 mg Azithromycin (Zithromax) 250 mg PO DAILY [facility] PRN Reason: Protocol Last Admin: 02/14/17 10:34 Dose: 250 mg Cephalexin Monohydrate (Keflex) 500 mg PO BID [facility] PRN Reason: Protocol Last Admin: 02/14/17 10:28 Dose: 500 mg Furosemide (Lasix) 40 mg PO BID [facility] Last Admin: 02/14/17 10:32 Dose: 40 mg Guaifenesin (Robitussin) 100 mg PO Q6H [facility] Last Admin: 02/14/17 12:39 Dose: 100 mg Milrinone Lactate/Dextrose (Primacor 20mg/100ml D5w) 100 mls @ 13.329 mls/hr IV .Q7H31M PRN; Protocol; 0.375 MCG/KG/MIN PRN Reason: TITRATE PER MD ORDER Last Admin: 02/13/17 13:38 Dose: 0.375 mcg/kg/min, 13.329 mls/hr Heparin Sodium/Sodium Chloride (Heparin 78829 Units/250ml 1/2 Normal Saline) 25 ,000 units in 250 mls @ 21.416 mls/hr IV .[id number] PRN; Protocol; 18 UNITS/KG/HR PRN Reason: ADJUST RATE PER PROTOCOL Ibuprofen (Motrin Tab) 400 mg PO Q6H PRN PRN Reason: Pain, moderate (4-7) Last Admin: 02/14/17 06:15 Dose: 400 mg Insulin Human Regular (Humulin R Med) 0 units SC ACHS [facility] PRN Reason: Protocol Last Admin: 02/14/17 12:35 Dose: 7 units Lisinopril (Zestril) 2.5 mg PO DAILY [facility] Last Admin: 02/14/17 10:32 Dose: 2.5 mg Methylprednisolone (Solu-Medrol) 20 mg IVP Q12 [facility] Last Admin: 02/14/17 12:39 Dose: 20 mg Metoprolol Tartrate (Lopressor) 25 mg PO BID [facility] Last Admin: 02/14/17 10:32 Dose: 25 mg Non-Formulary Medication (Diclofenac Sodium [Voltaren]) 1 % TOP TID [facility] Last Admin: 02/14/17 10:27 Dose: Not Given Pantoprazole Sodium (Protonix Ec Tab) 40 mg PO 0630 [facility] Last Admin: 02/14/17 06:15 Dose: 40 mg Warfarin Sodium (Coumadin) 10 mg PO 1800 [facility] PRN Reason: Protocol Stop: 02/15/17 08:00 - Labs Labs: 02/14/17 06:45 02/14/17 06:45 PT 13.8 Seconds (9.9-11.8) H 02/14/17 06:45 INR 1.28 (0.93-1.08) H 02/14/17 06:45 APTT 44.2 Seconds (23.7-30.8) H 02/13/17 08:30 - Constitutional Appears: Non-toxic, No Acute Distress - Head Exam Head Exam: ATRAUMATIC, NORMAL INSPECTION, NORMOCEPHALIC - Eye Exam Eye Exam: EOMI - ENT Exam ENT Exam: Mucous Membranes Moist - Neck Exam Neck Exam: Full ROM, Normal Inspection - Respiratory Exam Respiratory Exam: NORMAL BREATHING PATTERN. absent: Respiratory Distress - Cardiovascular Exam Cardiovascular Exam: +S1, +S2 - GI/Abdominal Exam GI & Abdominal Exam: Soft, Normal Bowel Sounds. absent: Tenderness - Extremities Exam Extremities Exam: Full ROM, Normal Inspection - Neurological Exam Neurological Exam: Alert, Awake, Oriented x3 - Psychiatric Exam Psychiatric exam: Normal Affect, Normal Mood - Skin Skin Exam: Dry, Intact, Normal Color, Warm Assessment and Plan - Assessment and Plan (Free Text) Assessment: This is a 46 year old female with past medical history of hypertension, diabetes , hyperlipidemia, asthma, SLE, migraine SANTOS, uterine fibroids and spinal stenosis presenting with hemoptysis and cardiac thrombus on ECHO Cardiac thrombus: heparin drip, heparin protocol Ptt and coag monitor Elevated troponins: 0.31, 0.36, 0.41, .21, trending down ASA 81, Plavix 75, Lisinopril 2.5 mg PO QD, metoprolol 25 mg PO BID Cardiology consulted, help appreciated. pt is s/p cath with dilated cardiomyopathy, ef 15 percent Heart failure/cardiomyopathy milrinone drip lasix 40 PO bid cardiology consult. recs appreciated. HTN: lasix 40 mg PO daily, Lisinopril 2.5 mg PO QD, metoprolol 25 mg PO BID Community acquired pneumonia: -D-dimer elevated at 2.02 -CTA showed right lower lobe acute pneumonia, no evidence of PE -d/c IV Rocephin and converted Azthromycin from IV to PO (02/12) -Aspiration precaution -O2 via NC prn -blood cx negative at 72 hours and sputum cultures neg -mycoplasma pneu IgG positive, legionella ag negative -ID consulted Dr. Sloan help appreciated -continue azithromycin 250 PO daily -continue cephalexin 500 mg PO daily Transaminitis -AST/ALT in ED 53/72 -hepatitis panel is negative -monitor and follow up AM labs Asthma: Albuterol/ipratropium IH prn HLD: lipitor on hold Diabetes: ISS, FS ACHS, Consistent carb diet SLE: home Hydroxychloroquine Prophylactic measures -Protonix for GI ppx -heparin drip -Motrin for pain and fever discussed with Dr. Martins <Rob Martins - Last Filed: 02/15/17 16:31> Objective - Vital Signs/Intake and Output Vital Signs (last 24 hours): Temp Pulse Resp BP Pulse Ox 98.7 F 95 H 20 137/88 96 02/15/17 11:52 02/15/17 14:00 02/15/17 11:52 02/15/17 11:52 02/15/17 08:00 Intake and Output: 02/15/17 02/15/17 06:59 18:59 Intake Total 1070 250 Output Total 0 Balance 1070 250 - Medications Medications: Current Medications Aspirin (Ecotrin) 81 mg PO DAILY [facility] Last Admin: 02/15/17 09:07 Dose: 81 mg Azithromycin (Zithromax) 250 mg PO DAILY [facility] PRN Reason: Protocol Last Admin: 02/15/17 09:07 Dose: 250 mg Cephalexin Monohydrate (Keflex) 500 mg PO BID [facility] PRN Reason: Protocol Last Admin: 02/15/17 09:08 Dose: 500 mg Furosemide (Lasix) 40 mg PO BID [facility] Last Admin: 02/15/17 09:08 Dose: 40 mg Guaifenesin (Robitussin) 100 mg PO Q6H [facility] Last Admin: 02/15/17 11:46 Dose: 100 mg Heparin Sodium/Sodium Chloride (Heparin 27214 Units/250ml 1/2 Normal Saline) 25 ,000 units in 250 mls @ 10.01 mls/hr IV .Q24H PRN; Protocol; 8.413 UNITS/KG/HR PRN Reason: ADJUST RATE PER PROTOCOL Last Admin: 02/15/17 11:45 Dose: 9.413 units/kg/hr, 11.199 mls/hr Ibuprofen (Motrin Tab) 400 mg PO Q6H PRN PRN Reason: Pain, moderate (4-7) Last Admin: 02/14/17 06:15 Dose: 400 mg Insulin Detemir (Levemir) 15 unit SC [facility] Last Admin: 02/15/17 07:46 Dose: 15 unit Insulin Human Lispro (Humalog) 7 units SC [facility] Insulin Human Regular (Humulin R Med) 0 units SC [facility] PRN Reason: Protocol Last Admin: 02/15/17 11:39 Dose: 10 units Lisinopril (Zestril) 5 mg PO DAILY [facility] Last Admin: 02/15/17 09:07 Dose: 5 mg Methylprednisolone (Solu-Medrol) 10 mg IVP Q12 [facility] Last Admin: 02/15/17 09:02 Dose: 10 mg Metoprolol Tartrate (Lopressor) 25 mg PO BID [facility] Last Admin: 02/15/17 09:08 Dose: 25 mg Non-Formulary Medication (Diclofenac Sodium [Voltaren]) 1 % TOP TID [facility] Last Admin: 02/15/17 13:50 Dose: Not Given Pantoprazole Sodium (Protonix Ec Tab) 40 mg PO 0630 [facility] Last Admin: 02/15/17 05:32 Dose: 40 mg Warfarin Sodium (Coumadin) 5 mg PO 1800 [facility] PRN Reason: Protocol - Labs Labs: 02/15/17 04:05 02/15/17 04:05 PT 13.4 Seconds (9.9-11.8) H 02/15/17 04:05 INR 1.24 (0.93-1.08) H 02/15/17 04:05 APTT 50.8 Seconds (23.7-30.8) H 02/15/17 12:05 Attending/Attestation - Attestation I have personally seen and examined this patient.: Yes I have fully participated in the care of the patient.: Yes I have reviewed all pertinent clinical information, including history, physical exam and plan: Yes Notes (Text): 02/14/17 46 year old female with multiple past medical problems who presented with complaint of cough and hemoptysis. She was found to have pneumonia and started on antibiotics and steroids. She was also found to have cardiac thrombus with elevated cardiac enzymes for which she was started on heparin drip for anticoagulation and aspirin, plavix, lisinopril and metoprolol. Statin was held due to elevated LFTs. She is s/p cardiac cath which showed noncritical CAD and severe cardiomyopathy. She was started on coumadin. Will continue with monitor her LFTs which were elevated. Hepatitis panel was negative. US abdomen showed fatty liver. Ultrasound also showed 7 mm stone with ?mild right hydronephrosis. She denies any flank pain or dysuria. Recommended outpatient urology follow up. Rob Martins MD Hospitalist.
--- NOTE | 2017-02-14 13:26 | PN ---
DATE: 02/14/2017 SUBJECTIVE: The patient's breathing has improved on IV milrinone. PHYSICAL EXAMINATION: VITAL SIGNS: Blood pressure 123/70. Heart rate 100. NECK: Negative JVD. LUNGS: Decreased breath sounds bilaterally. HEART: Revealed S1, S2. EXTREMITIES: Without edema. LABORATORIES: White count is 18,000, hemoglobin is 10.9. Chemistries: The glucose is 311. IMPRESSION: 1. End-stage dilated cardiomyopathy. 2. Acute systolic congestive heart failure. 3. Right and left heart congestive heart failure. 4. Diabetes mellitus. 5. Nonobstructive coronary artery disease. PLAN: Given these findings, the patient wanted the long-term anticoagulation given her LV thrombus. It is likely her asthma that was treated in the past was likely cardiac in nature. We will continue her on anticoagulation and will maintain the IV Primacor. Ric Gaston MD cc: [id number] TT: 02/14/2017 13:25:24 Confirmation # [id number] Dictation # [id number] dn
[2017-02-14] MEDS: Heparin25000 units/250ml 1/2NS 25,000 UNITS/250 ML BAG IV PRN (14:20)
[2017-02-14] MEDS: Milrinone 20mg/100ml D5W 100 ML IV PRN ×2 (14:27→16:59)
--- NOTE | 2017-02-14 19:39 | CP.PCM.PN ---
Subjective - Date & Time of Evaluation Date of Evaluation: 02/14/17 Time of Evaluation: 17:15 - Subjective Subjective: Infectious Disease Follow Up: February 14, 2017 46 yo AA female with extensive past medical history presenting with hemoptysis. She was treated with Azithromycin without improvement. The patient reports headaches, shortness of breath, nausea, vomiting, and chest tightness. The patient has leukocytosis and potential pneumonia. Clot seen in echocardiogram. The patient has a history of Lupus, asthma, diabetes. Cardiac cath with findings of dialated cardiomyopathy and EF of 15%. On Ceftriaxone and Azithromycin. No major complaints. Objective - Vital Signs/Intake and Output Vital Signs (last 24 hours): Temp Pulse Resp BP Pulse Ox 98.5 F 100 H 20 127/70 98 02/14/17 18:00 02/14/17 18:00 02/14/17 18:00 02/14/17 18:00 02/14/17 06:00 Intake and Output: 02/14/17 02/15/17 18:59 06:59 Intake Total 100 Balance 100 - Medications Medications: Current Medications Aspirin (Ecotrin) 81 mg PO DAILY [facility] Last Admin: 02/14/17 10:27 Dose: 81 mg Azithromycin (Zithromax) 250 mg PO DAILY [facility] PRN Reason: Protocol Last Admin: 02/14/17 10:34 Dose: 250 mg Cephalexin Monohydrate (Keflex) 500 mg PO BID [facility] PRN Reason: Protocol Last Admin: 02/14/17 17:00 Dose: 500 mg Furosemide (Lasix) 40 mg PO BID [facility] Last Admin: 02/14/17 17:00 Dose: 40 mg Guaifenesin (Robitussin) 100 mg PO Q6H [facility] Last Admin: 02/14/17 17:02 Dose: Not Given Milrinone Lactate/Dextrose (Primacor 20mg/100ml D5w) 100 mls @ 13.329 mls/hr IV .Q7H31M PRN; Protocol; 0.375 MCG/KG/MIN PRN Reason: TITRATE PER MD ORDER Last Admin: 02/14/17 16:59 Dose: 0.375 mcg/kg/min, 13.329 mls/hr Heparin Sodium/Sodium Chloride (Heparin 83918 Units/250ml 1/2 Normal Saline) 25 ,000 units in 250 mls @ 10.01 mls/hr IV .Q24H PRN; Protocol; 8.413 UNITS/KG/HR PRN Reason: ADJUST RATE PER PROTOCOL Last Admin: 02/14/17 14:20 Dose: 8.413 units/kg/hr, 10.01 mls/hr Ibuprofen (Motrin Tab) 400 mg PO Q6H PRN PRN Reason: Pain, moderate (4-7) Last Admin: 02/14/17 06:15 Dose: 400 mg Insulin Human Regular (Humulin R Med) 0 units SC ACHS [facility] PRN Reason: Protocol Last Admin: 02/14/17 16:59 Dose: 8 units Lisinopril (Zestril) 2.5 mg PO DAILY [facility] Last Admin: 02/14/17 10:32 Dose: 2.5 mg Methylprednisolone (Solu-Medrol) 20 mg IVP Q12 [facility] Last Admin: 02/14/17 12:39 Dose: 20 mg Metoprolol Tartrate (Lopressor) 25 mg PO BID [facility] Last Admin: 02/14/17 17:01 Dose: 25 mg Non-Formulary Medication (Diclofenac Sodium [Voltaren]) 1 % TOP TID [facility] Last Admin: 02/14/17 19:00 Dose: Not Given Pantoprazole Sodium (Protonix Ec Tab) 40 mg PO 0630 [facility] Last Admin: 02/14/17 06:15 Dose: 40 mg Warfarin Sodium (Coumadin) 10 mg PO 1800 [facility] PRN Reason: Protocol Stop: 02/15/17 08:00 Last Admin: 02/14/17 17:00 Dose: 10 mg - Labs Labs: 02/14/17 06:45 02/14/17 06:45 PT 13.8 Seconds (9.9-11.8) H 02/14/17 06:45 INR 1.28 (0.93-1.08) H 02/14/17 06:45 APTT 44.2 Seconds (23.7-30.8) H 02/13/17 08:30 - Constitutional Appears: No Acute Distress, Chronically Ill - Head Exam Head Exam: ATRAUMATIC, NORMOCEPHALIC - Eye Exam Eye Exam: EOMI, PERRL Pupil Exam: NORMAL ACCOMODATION, PERRL - ENT Exam ENT Exam: Mucous Membranes Moist, Normal External Ear Exam, TM's Normal Bilaterally - Neck Exam Neck Exam: Full ROM, Normal Inspection - Respiratory Exam Respiratory Exam: Clear to Ausculation Bilateral, NORMAL BREATHING PATTERN. absent: Rales, Rhonchi, Wheezes - Cardiovascular Exam Cardiovascular Exam: REGULAR RHYTHM, RRR, +S1, +S2 - GI/Abdominal Exam GI & Abdominal Exam: Soft, Normal Bowel Sounds. absent: Distended, Tenderness - Extremities Exam Extremities Exam: Full ROM, Normal Inspection - Neurological Exam Neurological Exam: Alert, Awake, CN II-XII Intact, Oriented x3 - Psychiatric Exam Psychiatric exam: Normal Affect, Normal Mood - Skin Skin Exam: Intact, Normal Color Assessment and Plan - Assessment and Plan (Free Text) Assessment: 46 yo AA female with CAP started on Rocephin and Azithromycin for now. Would consider Flagyl if there are concerns for aspiration pneumonia. Monitor transaminitis which is currently mild. Patient is continuing treatment for SLE and Diabetes. Hobbs cultures. RLL pneumonia. On evaluation today, the patient remains stable with minimal pulmonary symptoms. Can consider use of oral Keflex and Azithromycin to complete 7 days of therapy when ready for discharge unless patient completes therapy in hospital. Supportive care. New cardiac issues noted of dialated cardiomyopathy and EF of 15%. Thank you for allowing me to participate in the care of the patient, we will follow with you.
[2017-02-14] MEDS ORDERED: Insulin Detemir 100 units/ml Vial (Levemir) SC SCH (22:00)
[2017-02-15] MEDS: Milrinone 20mg/100ml D5W 100 ML IV PRN (01:01)
[2017-02-15] MEDS ORDERED: Insulin Reg-MEDIUM-Coverage SC ONE (03:54)
[2017-02-15 04:35] LABS: ADD MANUAL DIFF? NO
[2017-02-15 04:52] LABS: BASO # 0.01 K/mm3 (0.0-2.0); BASO % 0.1 % (0.0-3.0); GRAN % 86.5 % (50.0-68.0); HEMATOCRIT 34.6 % (36.0-48.0); LYMPH # 1.7 (1.2-3.4); LYMPH % 10.6 % (22.0-35.0); MEAN CELL VOLUME 75.5 fL (80.0-105.0); MEAN CORPUSCULAR HEMOGLOBIN 24.5 pg (25.0-35.0); MEAN CORPUSCULAR HGB CONC 32.4 g/dl (31.0-37.0); MEAN PLATELET VOLUME 9.3 fl (7.0-11.0); MONO # 0.4 (0.1-0.6); MONO % 2.8 % (1.0-6.0); PLATELET COUNT 449 10^3/uL (120.0-450.0); RED CELL DISTRIBUTION WIDTH 14.4 % (11.5-14.5); WHITE BLOOD COUNT 15.6 10^3/ul (4.5-11.0)
[2017-02-15 05:05] LABS: INR 1.24 (0.93-1.08)
[2017-02-15 05:13] LABS: PARTIAL THROMBOPLASTIN TIME 136.1 Seconds (23.7-30.8)
[2017-02-15 05:18] LABS: ALB/GLOB RATIO 0.9 (1.1-1.8); ALKALINE PHOSPHATASE 317 U/L (38-133); ALT/SGPT 336 U/L (7-56); AST/SGOT 159 U/L (15-39); BILIRUBIN,TOTAL 0.9 mg/dL (0.2-1.3); BLOOD UREA NITROGEN 22 mg/dL (7-21); CALCIUM 8.7 mg/dL (8.4-10.5); CARBON DIOXIDE 25 mmol/L (21-33); CHLORIDE 98 mmol/L (98-107); GFR AFRICAN-AMERICAN > 60; MAGNESIUM 1.9 mg/dL (1.7-2.2); PHOSPHOROUS 2.8 mg/dL (2.5-4.5); POTASSIUM 3.8 mmol/L (3.6-5.0); SODIUM 129 mmol/L (132-148); TOTAL PROTEIN 6.4 g/dL (5.8-8.3)
[2017-02-15] MEDS: guaiFENesin 100 mg/5 ml Syrup UD PO SCH ×4 (05:32→22:57)
[2017-02-15] MEDS: Pantoprazole 40 mg EC Tab PO SCH (05:32)
[2017-02-15 05:43] LABS: GLUCOSE,RANDOM 394 mg/dL (70-110)
[2017-02-15] MEDS: Heparin25000 units/250ml 1/2NS 25,000 UNITS/250 ML BAG IV PRN ×2 (06:15→11:45)
[2017-02-15] MEDS ORDERED: Insulin Detemir 100 units/ml Vial (Levemir) SC SCH ×2 (07:30→18:00)
[2017-02-15] MEDS: Insulin Reg-MEDIUM-Coverage SC SCH ×4 (07:46→21:47)
--- NOTE | 2017-02-15 08:43 | PN ---
DATE: 02/15/2017 The patient's breathing is stable. PHYSICAL EXAMINATION: VITAL SIGNS: Blood pressure 137/70, the heart rate is in the 90s. NECK: Negative JVD. LUNGS: Without rales, with decreased breath sounds.. HEART: Reveals S1, S2. EXTREMITIES: Without edema. LABORATORIES: Include an INR of 1.24. Chemistries: The glucose is 394. IMPRESSION: 1. End-stage dilated cardiomyopathy. 2. Left ventricular thrombus. 3. Diabetes mellitus. 4. Obesity. 5. Pneumonia. PLAN: Given these findings, the patient needs to be fully anticoagulated. I will start the patient on Coumadin. I have discussed with the patient about the potential evaluati on for a defibrillator. The patient is not agreeable to it at this time. She understands the implic ations of her decision. Ric Gaston MD cc: [id number] TT: 02/15/2017 08:42:01 Confirmation # [id number] Dictation # [id number] tn
[2017-02-15] MEDS: MethylPREDNISolone 40 mg Vial IVP SCH ×2 (09:02→21:46)
[2017-02-15] MEDS: DICLOFENAC SODIUM 1% TOP SCH ×3 (09:08→17:43)
--- NOTE | 2017-02-15 13:01 | CP.PCM.PN ---
<Derek Oconnell - Last Filed: 02/16/17 07:19> Subjective - Date & Time of Evaluation Date of Evaluation: 02/15/17 Time of Evaluation: 13:00 - Subjective Subjective: Med progress note. Attending: Dr. Martins. Pt seen and examined at bedside. No acute distress. Pt on heparin drip. INR subtherapeutic, will get warfarin today. Steroids tapered, denies hemoptysis, fevers, chills, vomiting, diarrhea. Objective - Vital Signs/Intake and Output Vital Signs (last 24 hours): Temp Pulse Resp BP Pulse Ox 98.7 F 98 H 20 137/88 96 02/15/17 11:52 02/15/17 11:52 02/15/17 11:52 02/15/17 11:52 02/15/17 08:00 Intake and Output: 02/15/17 02/15/17 06:59 18:59 Intake Total 1070 250 Output Total 0 Balance 1070 250 - Medications Medications: Current Medications Aspirin (Ecotrin) 81 mg PO DAILY [facility] Last Admin: 02/15/17 09:07 Dose: 81 mg Azithromycin (Zithromax) 250 mg PO DAILY [facility] PRN Reason: Protocol Last Admin: 02/15/17 09:07 Dose: 250 mg Cephalexin Monohydrate (Keflex) 500 mg PO BID [facility] PRN Reason: Protocol Last Admin: 02/15/17 09:08 Dose: 500 mg Furosemide (Lasix) 40 mg PO BID [facility] Last Admin: 02/15/17 09:08 Dose: 40 mg Guaifenesin (Robitussin) 100 mg PO Q6H [facility] Last Admin: 02/15/17 11:46 Dose: 100 mg Heparin Sodium/Sodium Chloride (Heparin 66748 Units/250ml 1/2 Normal Saline) 25 ,000 units in 250 mls @ 10.01 mls/hr IV .Q24H PRN; Protocol; 8.413 UNITS/KG/HR PRN Reason: ADJUST RATE PER PROTOCOL Last Admin: 02/15/17 11:45 Dose: 9.413 units/kg/hr, 11.199 mls/hr Ibuprofen (Motrin Tab) 400 mg PO Q6H PRN PRN Reason: Pain, moderate (4-7) Last Admin: 02/14/17 06:15 Dose: 400 mg Insulin Detemir (Levemir) 15 unit SC [facility] Last Admin: 02/15/17 07:46 Dose: 15 unit Insulin Human Lispro (Humalog) 7 units SC [facility] Insulin Human Regular (Humulin R Med) 0 units SC [facility] PRN Reason: Protocol Last Admin: 02/15/17 11:39 Dose: 10 units Lisinopril (Zestril) 5 mg PO DAILY [facility] Last Admin: 02/15/17 09:07 Dose: 5 mg Methylprednisolone (Solu-Medrol) 10 mg IVP Q12 [facility] Last Admin: 02/15/17 09:02 Dose: 10 mg Metoprolol Tartrate (Lopressor) 25 mg PO BID [facility] Last Admin: 02/15/17 09:08 Dose: 25 mg Non-Formulary Medication (Diclofenac Sodium [Voltaren]) 1 % TOP TID [facility] Last Admin: 02/15/17 09:08 Dose: Not Given Pantoprazole Sodium (Protonix Ec Tab) 40 mg PO 0630 [facility] Last Admin: 02/15/17 05:32 Dose: 40 mg Warfarin Sodium (Coumadin) 5 mg PO 1800 [facility] PRN Reason: Protocol - Labs Labs: 02/15/17 04:05 02/15/17 04:05 PT 13.4 Seconds (9.9-11.8) H 02/15/17 04:05 INR 1.24 (0.93-1.08) H 02/15/17 04:05 APTT 50.8 Seconds (23.7-30.8) H 02/15/17 12:05 - Constitutional Appears: Non-toxic, No Acute Distress - Head Exam Head Exam: ATRAUMATIC, NORMAL INSPECTION, NORMOCEPHALIC - Eye Exam Eye Exam: EOMI - ENT Exam ENT Exam: Mucous Membranes Moist - Neck Exam Neck Exam: Full ROM, Normal Inspection - Respiratory Exam Respiratory Exam: NORMAL BREATHING PATTERN. absent: Respiratory Distress - Cardiovascular Exam Cardiovascular Exam: +S1, +S2 - GI/Abdominal Exam GI & Abdominal Exam: Soft, Normal Bowel Sounds. absent: Tenderness - Extremities Exam Extremities Exam: Full ROM, Normal Inspection - Back Exam Back Exam: NORMAL INSPECTION - Neurological Exam Neurological Exam: Alert, Awake, Oriented x3 - Psychiatric Exam Psychiatric exam: Normal Affect, Normal Mood - Skin Skin Exam: Dry, Intact, Normal Color, Warm Assessment and Plan - Assessment and Plan (Free Text) Assessment: This is a 46 year old female with past medical history of hypertension, diabetes , hyperlipidemia, asthma, SLE, migraine SANTOS, uterine fibroids and spinal stenosis presenting with hemoptysis and cardiac thrombus on ECHO Cardiac thrombus: heparin drip, heparin protocol Ptt and coag monitor warfarin tonight Elevated troponins: 0.31, 0.36, 0.41, .21, trending down ASA 81,Lisinopril 2.5 mg PO QD, metoprolol 25 mg PO BID Cardiology consulted, help appreciated. pt is s/p cath with dilated cardiomyopathy, ef 15 percent Heart failure/cardiomyopathy milrinone drip lasix 40 PO bid cardiology consult. recs appreciated. may need defibrillator HTN: lasix 40 mg PO BID, Lisinopril 2.5 mg PO QD, metoprolol 25 mg PO BID Community acquired pneumonia: -D-dimer elevated at 2.02 -CTA showed right lower lobe acute pneumonia, no evidence of PE -d/c IV Rocephin and converted Azthromycin from IV to PO (02/12) -Aspiration precaution -O2 via NC prn -blood cx negative at 4 days and sputum cultures neg -mycoplasma pneu IgG positive, legionella ag negative -ID consulted Dr. Sloan help appreciated -continue azithromycin 250 PO daily -continue cephalexin 500 mg PO daily Transaminitis -AST/ALT in ED 53/72 -hepatitis panel is negative -monitor and follow up AM labs Asthma: Albuterol/ipratropium IH prn HLD: lipitor on hold Diabetes: ISS, FS ACHS, Consistent carb diet will add levemir 15 units bid will add humalog 7 units AC SLE: home Hydroxychloroquine Prophylactic measures -Protonix for GI ppx -heparin drip -warfarin tonight -Motrin for pain and fever discussed with Dr. Martins <Rob Martins - Last Filed: 02/16/17 07:45> Objective - Vital Signs/Intake and Output Vital Signs (last 24 hours): Temp Pulse Resp BP Pulse Ox 98.5 F 84 19 135/94 H 98 02/16/17 05:46 02/16/17 05:46 02/16/17 05:46 02/16/17 05:46 02/16/17 05:46 Intake and Output: 06/08/17 06/08/17 06:59 18:59 Intake Total 1355 Balance 1355 - Medications Medications: Current Medications Aspirin (Ecotrin) 81 mg PO DAILY [facility] Last Admin: 02/15/17 09:07 Dose: 81 mg Azithromycin (Zithromax) 250 mg PO DAILY [facility] PRN Reason: Protocol Last Admin: 02/15/17 09:07 Dose: 250 mg Cephalexin Monohydrate (Keflex) 500 mg PO BID [facility] PRN Reason: Protocol Last Admin: 02/15/17 17:52 Dose: 500 mg Furosemide (Lasix) 40 mg PO BID [facility] Last Admin: 02/15/17 17:51 Dose: 40 mg Guaifenesin (Robitussin) 100 mg PO Q6H [facility] Last Admin: 02/16/17 05:31 Dose: 100 mg Heparin Sodium/Sodium Chloride (Heparin 93764 Units/250ml 1/2 Normal Saline) 25 ,000 units in 250 mls @ 10.01 mls/hr IV .Q24H PRN; Protocol; 8.413 UNITS/KG/HR PRN Reason: ADJUST RATE PER PROTOCOL Last Titration: 02/16/17 03:19 Dose: 9.4 units/kg/hr, 11.184 mls/hr Ibuprofen (Motrin Tab) 400 mg PO Q6H PRN PRN Reason: Pain, moderate (4-7) Last Admin: 02/14/17 06:15 Dose: 400 mg Insulin Detemir (Levemir) 40 unit SC HS [facility] Insulin Human Lispro (Humalog Low) 0 units SC ACHS [facility] PRN Reason: Protocol Insulin Human Lispro (Humalog) 20 units SC AC [facility] Lisinopril (Zestril) 5 mg PO DAILY [facility] Last Admin: 02/15/17 09:07 Dose: 5 mg Methylprednisolone (Solu-Medrol) 10 mg IVP Q12 [facility] Last Admin: 02/15/17 21:46 Dose: 10 mg Metoprolol Tartrate (Lopressor) 25 mg PO BID [facility] Last Admin: 02/15/17 17:51 Dose: 25 mg Non-Formulary Medication (Diclofenac Sodium [Voltaren]) 1 % TOP TID [facility] Last Admin: 02/15/17 17:43 Dose: Not Given Pantoprazole Sodium (Protonix Ec Tab) 40 mg PO 0630 [facility] Last Admin: 02/16/17 05:31 Dose: 40 mg Warfarin Sodium (Coumadin) 10 mg PO 1800 [facility] PRN Reason: Protocol Warfarin Sodium (Coumadin) 2.5 mg PO 1800 [facility] Last Admin: 02/15/17 17:51 Dose: 2.5 mg - Labs Labs: 02/15/17 04:05 02/15/17 04:05 PT 13.4 Seconds (9.9-11.8) H 02/15/17 04:05 INR 1.24 (0.93-1.08) H 02/15/17 04:05 APTT 91.2 Seconds (23.7-30.8) H* 02/16/17 02:35 Attending/Attestation - Attestation I have personally seen and examined this patient.: Yes I have fully participated in the care of the patient.: Yes I have reviewed all pertinent clinical information, including history, physical exam and plan: Yes Notes (Text): 02/15/17 46 year old female with multiple past medical problems who presented with complaint of cough and hemoptysis. She was found to have pneumonia and started on antibiotics and steroids. She is being followed by pulmonary and ID. Her symptoms have improved and we will taper her steroids. She was also found to have cardiac thrombus with elevated cardiac enzymes for which she is on aspirin, plavix, lisinopril and metoprolol. Statin was held due to elevated LFTs. She is s/p cardiac cath which showed noncritical CAD and severe cardiomyopathy for which she was on lasix and milrinone. She is on heparin drip and coumadin for anticoagulation. INR today is subtherapeutic at 1.24 and her coumadin will be increased to 12.5 mg. Discussion was done with patient regarding defibrillator insertion. Will follow up with cardiology recommendations. Will continue with monitor her LFTs which were elevated. Hepatitis panel was negative. US abdomen showed fatty liver. Ultrasound also showed 7 mm stone with ?mild right hydronephrosis. She denies any flank pain or dysuria. Recommended outpatient urology follow up. She has uncontrolled diabetes, likely worse due to iv steroids. She was started on levemir yesterday which we will increase today. A1c is ordered and endocrinology evaluation is requested. Rob Martins MD Hospitalist.
[2017-02-15] MEDS ORDERED: Insulin Lispro 1 UNITS/0.01 ML SC SCH (16:30)
--- NOTE | 2017-02-15 16:59 | CP.PCM.PN ---
Subjective - Date & Time of Evaluation Date of Evaluation: 02/15/17 Time of Evaluation: 14:45 - Subjective Subjective: Infectious Disease Follow Up: February 15, 2017 46 yo AA female with extensive past medical history presenting with hemoptysis. She was treated with Azithromycin without improvement. The patient reports headaches, shortness of breath, nausea, vomiting, and chest tightness. The patient has leukocytosis and potential pneumonia. Clot seen in echocardiogram. The patient has a history of Lupus, asthma, diabetes. Cardiac cath with findings of dialated cardiomyopathy and EF of 15%. On Ceftriaxone and Azithromycin. No major complaints. Objective - Vital Signs/Intake and Output Vital Signs (last 24 hours): Temp Pulse Resp BP Pulse Ox 98.7 F 95 H 20 137/88 96 02/15/17 11:52 02/15/17 14:00 02/15/17 11:52 02/15/17 11:52 02/15/17 08:00 Intake and Output: 02/15/17 02/15/17 06:59 18:59 Intake Total 1070 250 Output Total 0 Balance 1070 250 - Medications Medications: Current Medications Aspirin (Ecotrin) 81 mg PO DAILY [facility] Last Admin: 02/15/17 09:07 Dose: 81 mg Azithromycin (Zithromax) 250 mg PO DAILY [facility] PRN Reason: Protocol Last Admin: 02/15/17 09:07 Dose: 250 mg Cephalexin Monohydrate (Keflex) 500 mg PO BID [facility] PRN Reason: Protocol Last Admin: 02/15/17 09:08 Dose: 500 mg Furosemide (Lasix) 40 mg PO BID [facility] Last Admin: 02/15/17 09:08 Dose: 40 mg Guaifenesin (Robitussin) 100 mg PO Q6H [facility] Last Admin: 02/15/17 11:46 Dose: 100 mg Heparin Sodium/Sodium Chloride (Heparin 54508 Units/250ml 1/2 Normal Saline) 25 ,000 units in 250 mls @ 10.01 mls/hr IV .Q24H PRN; Protocol; 8.413 UNITS/KG/HR PRN Reason: ADJUST RATE PER PROTOCOL Last Admin: 02/15/17 11:45 Dose: 9.413 units/kg/hr, 11.199 mls/hr Ibuprofen (Motrin Tab) 400 mg PO Q6H PRN PRN Reason: Pain, moderate (4-7) Last Admin: 02/14/17 06:15 Dose: 400 mg Insulin Detemir (Levemir) 15 unit SC [facility] Last Admin: 02/15/17 07:46 Dose: 15 unit Insulin Human Lispro (Humalog) 7 units SC [facility] Insulin Human Regular (Humulin R Med) [address] [facility] PRN Reason: Protocol Last Admin: 02/15/17 11:39 Dose: 10 units Lisinopril (Zestril) 5 mg PO DAILY [facility] Last Admin: 02/15/17 09:07 Dose: 5 mg Methylprednisolone (Solu-Medrol) 10 mg IVP Q12 [facility] Last Admin: 02/15/17 09:02 Dose: 10 mg Metoprolol Tartrate (Lopressor) 25 mg PO BID [facility] Last Admin: 02/15/17 09:08 Dose: 25 mg Non-Formulary Medication (Diclofenac Sodium [Voltaren]) 1 % TOP TID [facility] Last Admin: 02/15/17 13:50 Dose: Not Given Pantoprazole Sodium (Protonix Ec Tab) 40 mg PO 0630 [facility] Last Admin: 02/15/17 05:32 Dose: 40 mg Warfarin Sodium (Coumadin) 12.5 mg PO 1800 [facility] PRN Reason: Protocol - Labs Labs: 02/15/17 04:05 02/15/17 04:05 PT 13.4 Seconds (9.9-11.8) H 02/15/17 04:05 INR 1.24 (0.93-1.08) H 02/15/17 04:05 APTT 50.8 Seconds (23.7-30.8) H 02/15/17 12:05 - Constitutional Appears: Non-toxic, No Acute Distress, Chronically Ill - Head Exam Head Exam: ATRAUMATIC, NORMOCEPHALIC - Eye Exam Eye Exam: EOMI, PERRL Pupil Exam: NORMAL ACCOMODATION, PERRL - ENT Exam ENT Exam: Mucous Membranes Moist, Normal External Ear Exam, TM's Normal Bilaterally - Respiratory Exam Respiratory Exam: Clear to Ausculation Bilateral, NORMAL BREATHING PATTERN. absent: Rales, Rhonchi, Wheezes - Cardiovascular Exam Cardiovascular Exam: REGULAR RHYTHM, RRR, +S1, +S2 - GI/Abdominal Exam GI & Abdominal Exam: Soft, Normal Bowel Sounds. absent: Distended, Tenderness - Extremities Exam Extremities Exam: Full ROM, Normal Inspection - Neurological Exam Neurological Exam: Alert, Awake, CN II-XII Intact, Oriented x3 - Psychiatric Exam Psychiatric exam: Normal Affect, Normal Mood - Skin Skin Exam: Intact, Normal Color Assessment and Plan - Assessment and Plan (Free Text) Assessment: 46 yo AA female with CAP started on Rocephin and Azithromycin for now. Would consider Flagyl if there are concerns for aspiration pneumonia. Monitor transaminitis which is currently mild. Patient is continuing treatment for SLE and Diabetes. Hobbs cultures. RLL pneumonia. On evaluation today, the patient remains stable with minimal pulmonary symptoms. Can consider use of oral Keflex and Azithromycin to complete 7 days of therapy when ready for discharge unless patient completes therapy in hospital. Supportive care. New cardiac issues noted of dialated cardiomyopathy and EF of 15%. Thank you for allowing me to participate in the care of the patient, we will follow with you.
--- NOTE | 2017-02-15 18:58 | CP.PCM.PN ---
Subjective - Date & Time of Evaluation Date of Evaluation: 02/15/17 Time of Evaluation: 06:45 - Subjective Subjective: No acute events overnight No hemoptysis On heparin Objective - Vital Signs/Intake and Output Vital Signs (last 24 hours): Temp Pulse Resp BP Pulse Ox 97.4 F L 92 H 20 138/67 96 02/15/17 18:00 02/15/17 18:00 02/15/17 18:00 02/15/17 18:00 02/15/17 08:00 Intake and Output: 02/15/17 02/15/17 06:59 18:59 Intake Total 1070 250 Output Total 0 Balance 1070 250 - Medications Medications: Current Medications Aspirin (Ecotrin) 81 mg PO DAILY [facility] Last Admin: 02/15/17 09:07 Dose: 81 mg Azithromycin (Zithromax) 250 mg PO DAILY [facility] PRN Reason: Protocol Last Admin: 02/15/17 09:07 Dose: 250 mg Cephalexin Monohydrate (Keflex) 500 mg PO BID [facility] PRN Reason: Protocol Last Admin: 02/15/17 17:52 Dose: 500 mg Furosemide (Lasix) 40 mg PO BID [facility] Last Admin: 02/15/17 17:51 Dose: 40 mg Guaifenesin (Robitussin) 100 mg PO Q6H [facility] Last Admin: 02/15/17 17:44 Dose: Not Given Heparin Sodium/Sodium Chloride (Heparin 37765 Units/250ml 1/2 Normal Saline) 25 ,000 units in 250 mls @ 10.01 mls/hr IV .Q24H PRN; Protocol; 8.413 UNITS/KG/HR PRN Reason: ADJUST RATE PER PROTOCOL Last Admin: 02/15/17 11:45 Dose: 9.413 units/kg/hr, 11.199 mls/hr Ibuprofen (Motrin Tab) 400 mg PO Q6H PRN PRN Reason: Pain, moderate (4-7) Last Admin: 02/14/17 06:15 Dose: 400 mg Insulin Detemir (Levemir) 18 unit SC BID [facility] Last Admin: 02/15/17 17:50 Dose: 18 unit Insulin Human Lispro (Humalog) 7 units SC AC [facility] Last Admin: 02/15/17 16:48 Dose: 7 units Insulin Human Regular (Humulin R Med) 0 units SC ACHS [facility] PRN Reason: Protocol Last Admin: 02/15/17 16:48 Dose: 10 units Lisinopril (Zestril) 5 mg PO DAILY [facility] Last Admin: 02/15/17 09:07 Dose: 5 mg Methylprednisolone (Solu-Medrol) 10 mg IVP Q12 [facility] Last Admin: 02/15/17 09:02 Dose: 10 mg Metoprolol Tartrate (Lopressor) 25 mg PO BID [facility] Last Admin: 02/15/17 17:51 Dose: 25 mg Non-Formulary Medication (Diclofenac Sodium [Voltaren]) 1 % TOP TID [facility] Last Admin: 02/15/17 17:43 Dose: Not Given Pantoprazole Sodium (Protonix Ec Tab) 40 mg PO 0630 [facility] Last Admin: 02/15/17 05:32 Dose: 40 mg Warfarin Sodium (Coumadin) 10 mg PO 1800 [facility] PRN Reason: Protocol Warfarin Sodium (Coumadin) 2.5 mg PO 1800 [facility] Last Admin: 02/15/17 17:51 Dose: 2.5 mg - Labs Labs: 02/15/17 04:05 02/15/17 04:05 PT 13.4 Seconds (9.9-11.8) H 02/15/17 04:05 INR 1.24 (0.93-1.08) H 02/15/17 04:05 APTT 50.8 Seconds (23.7-30.8) H 02/15/17 12:05 - Head Exam Head Exam: ATRAUMATIC, NORMAL INSPECTION - Eye Exam Eye Exam: EOMI, Normal appearance Pupil Exam: NORMAL ACCOMODATION, PERRL - ENT Exam ENT Exam: Mucous Membranes Moist, Normal Exam - Neck Exam Neck Exam: Normal Inspection - Respiratory Exam Respiratory Exam: Clear to Ausculation Bilateral - Cardiovascular Exam Cardiovascular Exam: REGULAR RHYTHM - GI/Abdominal Exam GI & Abdominal Exam: Normal Bowel Sounds - Extremities Exam Extremities Exam: Full ROM Assessment and Plan - Assessment and Plan (Free Text) Assessment: 46 y/o F w/ Cardiomyopathy of uncertain reason Plan for possible AICD On heparin for intra cardiac clot. Cardiac rehab needed. Inotropes added per cardiology No signs of asthma Empiric abx being given for possible CAP.
--- NOTE | 2017-02-15 23:55 | CON ---
DATE: 02/15/2017 LOCATION: Room 275. HISTORY OF PRESENT ILLNESS: This is a 46-year-old female with known history of type 2 insulin-requir ing diabetes on a multiple drug combination of both oral agents and insulin, now admitted with sudden onset of hemoptysis and has been evaluated to have an acute pneumonia, and is now being referred for diabetic evaluation and management. PAST MEDICAL HISTORY: As mentioned above, history of type 2 insulin-requiring diabetes, using to Vikas leidy 300 units at bedtime, with Jardiance at 10 mg once daily, with Jentadueto at 2.01/1000 b.i.d., and Humalog given as 20 units subcutaneous once daily, and Trulicity given as 1.5 mg once a week as note d. History of hypertension and dyslipidemia, history of underlying morbid obesity with underlying ch ronic bronchial asthma and COPD, history of spinal stenosis, and has persistent low back pain, as men tioned and noted, history of systemic lupus, as noted. History of spinal stenosis, and has been usin g narcotic analgesics for pain relief. FAMILY HISTORY: Positive for hypertension and diabetes, and her grandmother had breast cancer. PAST SURGICAL HISTORY: History of ectopic with subsequent D and C more than 10 years ago. SOCIAL HISTORY: The patient has supportive family. No known substance use and also uses alcohol soc ially, as noted. REVIEW OF SYSTEMS: As mentioned above. Admits to generalized body weakness with easy fatigability a nd tiredness and suboptimal energy level with supervening dizziness and lightheadedness, worse on the day of admission. Also, admits to precordial tightness with progressive shortness of breath, initia lly on exertion and then at rest, with supervening hemoptysis, as mentioned. Her oral intake is vari able and suboptimal with nausea, dyspepsia, and vague upper abdominal pains. Also, admits to marked polyuria and nocturia, especially in the last week or so prior to admission. PHYSICAL EXAMINATION: GENERAL: An obese female in no apparent distress. VITAL SIGNS: Blood pressure of 160/90, pulse of 100 beats per minute, regular, temperature 99, respi rations 20. Height is 5 feet 5 inches, weight is 264 pounds. HEENT: Head normocephalic. Eyes anicteric with pink conjunctivae. Fundoscopy not possible at this time. Ears, nose, and throat otherwise normal. NECK: Supple. Thyroid gland is normal size. No carotid bruits or any cervical adenopathy. CARDIOPULMONARY: Some adynamic precordium. S1, S2 are rapid and regular. LUNGS: Show scattered rhonchi. ABDOMEN: Obese, soft, with positive bowel sounds. EXTREMITIES: No peripheral edema. Pulses are +2 bilaterally. LABORATORY DATA: Her chemistries showed a BUN of 22, sodium 129, potassium 3.8, chloride 98, CO2 25 , glucose 394, and creatinine 0.9. Her glucose levels have ranged from 335-416 and 442 mg/dL. ASSESSMENT: This is a 46-year-old female with uncontrolled and decompensated type 2 insulin-requirin g diabetes, presenting here with an acute pneumonia and associated pleuritic chest pain and bronchorr hea, and is now being referred for diabetic evaluation and management. She also has underlying morbi d obesity, which will contribute to the increased insulin resistance and further impaired glucose kane erance thereof, and also has acute exacerbation of asthmatic bronchitis contributing to the increased insulin requirements from the supervening insulin resistance thereof. We will obtain a hemoglobin A 1c to confirm her prior glycemic control and baseline thyroid function studies will be ordered. Will follow. Aisha Purvis MD cc: [id number] TT: 02/15/2017 23:54:17 Confirmation # [id number] Dictation # [id number] acacia
[2017-02-16] MEDS ORDERED: Insulin Lispro 1 UNITS/0.01 ML SC STA (02:35)
[2017-02-16] MEDS: Pantoprazole 40 mg EC Tab PO SCH (05:31)
[2017-02-16] MEDS: guaiFENesin 100 mg/5 ml Syrup UD PO SCH ×4 (05:31→22:34)
[2017-02-16] MEDS ORDERED: Insulin Lispro 1 UNITS/0.01 ML SC SCH (07:30)
[2017-02-16] MEDS: Insulin Lispro (humaLOG) LOW Coverage SC SCH ×4 (07:42→21:30)
[2017-02-16] MEDS: Insulin Lispro 1 UNITS/0.01 ML SC SCH ×3 (08:04→17:18)
[2017-02-16 08:48] LABS: ADD MANUAL DIFF? NO
[2017-02-16 08:54] LABS: BASO # 0.02 K/mm3 (0.0-2.0); BASO % 0.1 % (0.0-3.0); GRAN # 14.62 (1.4-6.5); GRAN % 71.1 % (50.0-68.0); HEMATOCRIT 41.8 % (36.0-48.0); LYMPH # 4.8 (1.2-3.4); LYMPH % 23.4 % (22.0-35.0); MEAN CELL VOLUME 75.9 fL (80.0-105.0); MEAN CORPUSCULAR HEMOGLOBIN 24.1 pg (25.0-35.0); MEAN CORPUSCULAR HGB CONC 31.8 g/dl (31.0-37.0); MEAN PLATELET VOLUME 9.3 fl (7.0-11.0); MONO # 1.1 (0.1-0.6); MONO % 5.4 % (1.0-6.0); PLATELET COUNT 549 10^3/uL (120.0-450.0); RED CELL DISTRIBUTION WIDTH 14.4 % (11.5-14.5); WHITE BLOOD COUNT 20.6 10^3/ul (4.5-11.0)
[2017-02-16 09:13] LABS: INR 1.69 (0.93-1.08)
[2017-02-16 09:18] LABS: ALB/GLOB RATIO 1.1 (1.1-1.8); ALKALINE PHOSPHATASE 385 U/L (38-133); ALT/SGPT 401 U/L (7-56); AST/SGOT 157 U/L (15-39); BILIRUBIN,TOTAL 0.8 mg/dL (0.2-1.3); BLOOD UREA NITROGEN 24 mg/dL (7-21); CALCIUM 9.4 mg/dL (8.4-10.5); CARBON DIOXIDE 27 mmol/L (21-33); CHLORIDE 101 mmol/L (98-107); GFR AFRICAN-AMERICAN > 60; GLUCOSE,RANDOM 260 mg/dL (70-110); MAGNESIUM 2.1 mg/dL (1.7-2.2); PHOSPHOROUS 2.8 mg/dL (2.5-4.5); POTASSIUM 3.9 mmol/L (3.6-5.0); SODIUM 136 mmol/L (132-148); TOTAL PROTEIN 7.4 g/dL (5.8-8.3)
[2017-02-16] MEDS: DICLOFENAC SODIUM 1% TOP SCH ×3 (09:45→17:06)
[2017-02-16] MEDS: MethylPREDNISolone 40 mg Vial IVP SCH (09:46)
[2017-02-16] MEDS: Heparin25000 units/250ml 1/2NS 25,000 UNITS/250 ML BAG IV PRN (11:17)
--- NOTE | 2017-02-16 13:29 | CP.PCM.PN ---
<Derek Oconnell - Last Filed: 02/16/17 13:29> Subjective - Date & Time of Evaluation Date of Evaluation: 02/16/17 Time of Evaluation: 13:25 - Subjective Subjective: Med progress note. Attending: Dr. Martins Pt seen and examined at bedside. No acute distress. No events overnight. No fevers, chills, vomiting, diarrhea. Pt may need defibrillator, will put in consult. Objective - Vital Signs/Intake and Output Vital Signs (last 24 hours): Temp Pulse Resp BP Pulse Ox 98.5 F 99 H 19 112/70 98 02/16/17 05:46 02/16/17 10:00 02/16/17 05:46 02/16/17 09:47 02/16/17 05:46 Intake and Output: 02/16/17 02/16/17 06:59 18:59 Intake Total 1355 0 Balance 1355 0 - Medications Medications: Current Medications Aspirin (Ecotrin) 81 mg PO DAILY [facility] Last Admin: 02/16/17 09:45 Dose: 81 mg Azithromycin (Zithromax) 250 mg PO DAILY [facility] PRN Reason: Protocol Last Admin: 02/16/17 09:47 Dose: 250 mg Cephalexin Monohydrate (Keflex) 500 mg PO BID [facility] PRN Reason: Protocol Last Admin: 02/16/17 09:45 Dose: 500 mg Furosemide (Lasix) 40 mg PO BID [facility] Last Admin: 02/16/17 09:45 Dose: 40 mg Guaifenesin (Robitussin) 100 mg PO Q6H [facility] Last Admin: 02/16/17 12:11 Dose: 100 mg Heparin Sodium/Sodium Chloride (Heparin 96522 Units/250ml 1/2 Normal Saline) 25 ,000 units in 250 mls @ 10.01 mls/hr IV .Q24H PRN; Protocol; 8.413 UNITS/KG/HR PRN Reason: ADJUST RATE PER PROTOCOL Last Admin: 02/16/17 11:17 Dose: 9.4 units/kg/hr, 11.184 mls/hr Ibuprofen (Motrin Tab) 400 mg PO Q6H PRN PRN Reason: Pain, moderate (4-7) Last Admin: 02/14/17 06:15 Dose: 400 mg Insulin Detemir (Levemir) 40 unit SC [facility] Insulin Human Lispro (Humalog Low) 0 units SC ACHS [facility] PRN Reason: Protocol Last Admin: 02/16/17 11:16 Dose: Not Given Insulin Human Lispro (Humalog) 20 units SC AC [facility] Last Admin: 02/16/17 11:21 Dose: 20 units Lisinopril (Zestril) 5 mg PO DAILY [facility] Last Admin: 02/16/17 09:47 Dose: 5 mg Metoprolol Tartrate (Lopressor) 25 mg PO BID [facility] Last Admin: 02/16/17 09:45 Dose: 25 mg Non-Formulary Medication (Diclofenac Sodium [Voltaren]) 1 % TOP TID [facility] Last Admin: 02/16/17 09:45 Dose: Not Given Pantoprazole Sodium (Protonix Ec Tab) 40 mg PO 0630 [facility] Last Admin: 02/16/17 05:31 Dose: 40 mg Warfarin Sodium (Coumadin) 12.5 mg PO 1800 [facility] PRN Reason: Protocol - Labs Labs: 02/16/17 08:10 02/16/17 08:10 PT 18.2 Seconds (9.9-11.8) H 02/16/17 08:10 INR 1.69 (0.93-1.08) H 02/16/17 08:10 APTT 56.6 Seconds (23.7-30.8) H 02/16/17 08:10 - Constitutional Appears: Non-toxic, No Acute Distress - Head Exam Head Exam: ATRAUMATIC, NORMAL INSPECTION, NORMOCEPHALIC - Eye Exam Eye Exam: EOMI - Respiratory Exam Respiratory Exam: Decreased Breath Sounds, NORMAL BREATHING PATTERN. absent: Accessory Muscle Use, Chest Wall Tenderness, Wheezes, Respiratory Distress - Cardiovascular Exam Cardiovascular Exam: +S1, +S2 - GI/Abdominal Exam GI & Abdominal Exam: Soft, Normal Bowel Sounds. absent: Tenderness - Neurological Exam Neurological Exam: Alert, Awake, Oriented x3 - Psychiatric Exam Psychiatric exam: Normal Affect, Normal Mood - Skin Skin Exam: Dry, Intact, Normal Color, Warm Assessment and Plan - Assessment and Plan (Free Text) Assessment: This is a 46 year old female with past medical history of hypertension, diabetes , hyperlipidemia, asthma, SLE, migraine SANTOS, uterine fibroids and spinal stenosis presenting with hemoptysis and cardiac thrombus on ECHO Cardiac thrombus: heparin drip, heparin protocol Ptt and coag monitor warfarin tonight 12.5 mg po Elevated troponins: 0.31, 0.36, 0.41, .21, trending down ASA 81,Lisinopril 2.5 mg PO QD, metoprolol 25 mg PO BID Cardiology consulted, help appreciated. pt is s/p cath with dilated cardiomyopathy, ef 15 percent Heart failure/cardiomyopathy milrinone drip has been discontinue lasix 40 PO bid cardiology consult. recs appreciated. may need defibrillator will place consult with EP. recs appreciated. HTN: lasix 40 mg PO BID, Lisinopril 2.5 mg PO QD, metoprolol 25 mg PO BID Community acquired pneumonia: -elevated wbcs likely secondary to steroids -D-dimer elevated at 2.02 -CTA showed right lower lobe acute pneumonia, no evidence of PE -d/c IV Rocephin and converted Azthromycin from IV to PO (02/12) -Aspiration precaution -O2 via NC prn -blood cx negative at 5 days and sputum cultures neg -mycoplasma pneu IgG positive, legionella ag negative -ID consulted Dr. Sloan help appreciated -continue azithromycin 250 PO daily -continue cephalexin 500 mg PO daily Transaminitis -AST/ALT in ED 53/72 -hepatitis panel is negative -monitor and follow up AM labs Asthma: Albuterol/ipratropium IH prn continue prednisone 20 mg po daily HLD: lipitor on hold Diabetes: ISS, FS ACHS, Consistent carb diet levemir 40 units hs will add humalog 20 units AC will fu a1c SLE: home Hydroxychloroquine Prophylactic measures -Protonix for GI ppx -heparin drip -warfarin tonight -Motrin for pain and fever discussed with Dr. Martins <Rob Martins - Last Filed: 02/16/17 16:46> Objective - Vital Signs/Intake and Output Vital Signs (last 24 hours): Temp Pulse Resp BP Pulse Ox 98 F 91 H 20 125/92 H 98 02/16/17 12:00 02/16/17 14:00 02/16/17 12:00 02/16/17 12:00 02/16/17 05:46 Intake and Output: 02/16/17 02/16/17 06:59 18:59 Intake Total 2014 0 Output Total Balance 2012 0 - Medications Medications: Current Medications Aspirin (Ecotrin) 81 mg PO DAILY [facility] Last Admin: 02/16/17 09:45 Dose: 81 mg Azithromycin (Zithromax) 250 mg PO DAILY [facility] PRN Reason: Protocol Last Admin: 02/16/17 09:47 Dose: 250 mg Cephalexin Monohydrate (Keflex) 500 mg PO BID [facility] PRN Reason: Protocol Last Admin: 02/16/17 09:45 Dose: 500 mg Furosemide (Lasix) 40 mg PO BID [facility] Last Admin: 02/16/17 09:45 Dose: 40 mg Guaifenesin (Robitussin) 100 mg PO Q6H [facility] Last Admin: 02/16/17 12:11 Dose: 100 mg Heparin Sodium/Sodium Chloride (Heparin 15679 Units/250ml 1/2 Normal Saline) 25 ,000 units in 250 mls @ 10.01 mls/hr IV .Q24H PRN; Protocol; 8.413 UNITS/KG/HR PRN Reason: ADJUST RATE PER PROTOCOL Last Admin: 02/16/17 11:17 Dose: 9.4 units/kg/hr, 11.184 mls/hr Ibuprofen (Motrin Tab) 400 mg PO Q6H PRN PRN Reason: Pain, moderate (4-7) Last Admin: 02/14/17 06:15 Dose: 400 mg Insulin Detemir (Levemir) 50 unit SC HS [facility] Insulin Human Lispro (Humalog Low) 0 units SC ACHS [facility] PRN Reason: Protocol Last Admin: 02/16/17 11:16 Dose: Not Given Insulin Human Lispro (Humalog) 20 units SC AC [facility] Last Admin: 02/16/17 11:21 Dose: 20 units Lisinopril (Zestril) 5 mg PO DAILY [facility] Last Admin: 02/16/17 09:47 Dose: 5 mg Metoprolol Tartrate (Lopressor) 25 mg PO BID [facility] Last Admin: 02/16/17 09:45 Dose: 25 mg Non-Formulary Medication (Diclofenac Sodium [Voltaren]) 1 % TOP TID [facility] Last Admin: 02/16/17 09:45 Dose: Not Given Pantoprazole Sodium (Protonix Ec Tab) 40 mg PO 0630 [facility] Last Admin: 02/16/17 05:31 Dose: 40 mg Prednisone (Prednisone Tab) 20 mg PO DAILY [facility] Warfarin Sodium (Coumadin) 10 mg PO 1800 [facility] PRN Reason: Protocol Warfarin Sodium (Coumadin) 2.5 mg PO 1800 [facility] PRN Reason: Protocol - Labs Labs: 02/16/17 08:10 02/16/17 08:10 PT 18.2 Seconds (9.9-11.8) H 02/16/17 08:10 INR 1.69 (0.93-1.08) H 02/16/17 08:10 APTT 57.6 Seconds (23.7-30.8) H 02/16/17 13:55 Attending/Attestation - Attestation I have personally seen and examined this patient.: Yes I have fully participated in the care of the patient.: Yes I have reviewed all pertinent clinical information, including history, physical exam and plan: Yes Notes (Text): 02/16/17 16:42 46 year old female with multiple past medical problems who presented with complaint of cough and hemoptysis. She was found to have pneumonia and started on antibiotics and steroids. She is being followed by pulmonary and ID. Her symptoms have improved. Will switch prednisone to po. Leukocytosis is likely secondary to steroids. She was also found to have cardiac thrombus with elevated cardiac enzymes for which she is on aspirin, plavix, lisinopril and metoprolol. Statin was held due to elevated LFTs. She is s/p cardiac cath which showed noncritical CAD and severe cardiomyopathy for which she which she is on lasix. Milrinone was discontinued. She is on heparin drip and coumadin for anticoagulation. INR today is 1.69. Patient may need EP eval for defibrillator placement in few months as per cardiology after treatment of her cardiac thrombus. GI evaluation was appreciated for elevated LFTs. Will continue to monitor. Hepatitis panel was negative. US abdomen showed fatty liver. Ultrasound also showed 7 mm stone with ?mild right hydronephrosis. She denies any flank pain or dysuria. Recommended outpatient urology follow up. 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 Her A1c was 11.7. Rob Martins MD Hospitalist.
--- NOTE | 2017-02-16 13:35 | PN ---
DATE: 02/16/2017 SUBJECTIVE: The patient's breathing is much improved. PHYSICAL EXAMINATION: VITAL SIGNS: Blood pressure 112/70, heart rate is in the 80s, normal sinus rhythm. NECK: Negative JVD. LUNGS: Without rales. HEART: Reveals S1, S2. EXTREMITIES: Without edema. LABORATORY DATA: The glucose is 260, hemoglobin is 13, white count is 20.6. IMPRESSION: 1. Resolution of congestive heart failure. 2. Dilated cardiomyopathy. 3. Left ventricular thrombus. 4. Diabetes mellitus. 5. Pneumonia. 6. Obesity. PLAN: Given these findings, the patient will need full anticoagulation for LV thrombus. The patient is agreeable to defibrillator evaluation evaluation for it. However, we defer any interventio n until several months of anticoagulation to help resolve her LV thrombus. Ric Gaston MD cc: [phone] TT: 02/16/2017 13:34:47 Confirmation # [id number] Dictation # [id number] mac
--- NOTE | 2017-02-16 15:12 | CON ---
DATE: 02/16/2017 I examined the patient this morning. She is a 46-year-old obese black female admitted with complaints of a refractory cough and hematemesis. According to the chart, the patient has past medical history of hypertension, diabetes, acid reflux, elevated lipids, asthma, spinal stenosis. Presented after, as an outpatient, her cough became progressively worse a couple days prior to admission. Medications were not relieving her symptoms on an outpatient basis. I reviewed the patient's echo as well as EKGs, chest CT, etc. The patient's echo was significant for severe systolic function with global hypokinesis. She had an apical thrombus. Also, mitral regurgitation plus pulmonary hypertension and tricuspid regurgitation. I reviewed the progress notes, the patient's clinical course during the hospital admission. She had an abdominal ultrasound on 02/12/2017, which was significant for hepatic steatosis, bile duct and gallbladder noncontributory, pancreas was not well visualized. I reviewed the patient's clinical course with the patient at bedside. By the way, the consult was called for elevated LFTs. PHYSICAL EXAMINATION: VITAL SIGNS: I reviewed this patient's vital signs. HEENT: Noncontributory. LUNGS: Revealed decreased breath sounds basilar on both sides. HEART: Irregular, mildly rapid. ABDOMEN: Protuberant. No tenderness was elicited. I reviewed this patient's laboratory data. Hematology is consistent with WBC count initially 11, now 20.6 on the most recent blood work. Coagulation indicates elevated aPTT. Serology showed a mycoplasma pneumoniae IgG of 1.76. IgM of 72. Hepatitis profile negative. Review of laboratory data indicate a progressively rising lactate dehydrogenase, initially 553 on admission, subsequently rising. Also, she had an elevated troponin level. Glucose level elevated as well. Note that initially her transaminases were in the range of 50 /65, subsequently increased to 448/290 on the 4th and then recent apex and then subsequently started to decrease with an AST/ALT ratio of 157/401 today. Her alk phos is 385. Note that her glucose had been in the 300 range recently. I reviewed the patient's cardiac catheterization report which was done on the . The cardiac catheterization was then performed by Dr. Gaston, which revealed noncritical coronary artery disease, but severely dilated cardiomyopathy with a left ventricular thrombus on echo. Her ejection fraction was 15%. I think if you put all this together, the elevation of LFTs is probably related to a multifactorial basis. For pneumonia, the patient was started on Rocephin and azithromycin by ID. This probably contributed to the elevated LFTs. Other factors also to consider, especially in view of an elevated LDH, could be dilated cardiomyopathy including the ventricular thrombus. There may have been some hepatic low flow phenomenon due to possible cardiac arrhythmia and CHF issue in this particular case. Note that the ultrasound indicated a diffuse echogenicity noted throughout the liver. Therefore, antibiotics plus cardiomyopathy plus hepatic steatosis put the patient at high risk for elevation of transaminases. Note that it seems that the transaminases currently are in a downward trend. Note that the patient has no symptoms of hematemesis, rectal bleeding or abdominal pain. At the current time point, continue on the current treatment modality and check the LFT trends over the next couple of days. As her symptoms improve, there is a possibility that the LFTs may revert back to preadmission levels. Jelani Boyd DO, PhD cc: [phone] TT: 02/16/2017 15:11:49 Confirmation # [id number] Dictation # [id number] en MTDD
--- NOTE | 2017-02-16 16:14 | PN ---
DATE: 02/16/2017 ROOM: 275 This is a 46-year-old female with recent uncontrolled type 2 insulin-requiring diabetes, presenting h ere with sinus tachycardia and supervening pneumonia, and currently also started on IV steroid therap y for management of bronchospasm and is now being followed closely for diabetic management. Transien t hyperglycemic accelerations are expected with increased insulin resistance from the underlying IV s teroids as given. Her latest chemistries showed a BUN of 24, sodium 136, potassium 3.9, chloride 101, CO2 27, glucose 2 60 and creatinine 1.1. Her hemoglobin A1c is 11.7%, which is quite elevated and indicative of subopt imal metabolic control of her diabetic condition even with outpatient combination of both oral hypogl ycemic therapy and insulin therapy as given by her primary physician, Dr. Ben Miles here in [facility]. Her glucose values now have ranged from 198-299 and 329 mg/dL. So at this time, we will modify her basal insulin and increase the Levemir to 50 units subQ at bedtim e daily to start tonight. We will titrate incrementally as indicated to optimize metabolic control. We will continue the Humalog given as 20 units subQ t.i.d. before meals as ordered. We will obtain serial chemistries and supplement accordingly as needed. We will follow. Aisha Purvis MD cc: [phone] TT: 02/16/2017 16:13:33 Confirmation # [id number] Dictation # [id number] en
--- NOTE | 2017-02-16 18:06 | CP.PCM.PN ---
Subjective - Date & Time of Evaluation Date of Evaluation: 02/16/17 Time of Evaluation: 16:00 - Subjective Subjective: Infectious Disease Follow Up: February 16, 2017 46 yo AA female with extensive past medical history presenting with hemoptysis. She was treated with Azithromycin without improvement. The patient reports headaches, shortness of breath, nausea, vomiting, and chest tightness. The patient has leukocytosis and potential pneumonia. Clot seen in echocardiogram. The patient has a history of Lupus, asthma, diabetes. Cardiac cath with findings of dialated cardiomyopathy and EF of 15%. On Ceftriaxone and Azithromycin. No major complaints. Objective - Vital Signs/Intake and Output Vital Signs (last 24 hours): Temp Pulse Resp BP Pulse Ox 98 F 97 H 20 126/91 H 98 02/16/17 12:00 02/16/17 17:49 02/16/17 12:00 02/16/17 17:20 02/16/17 05:46 Intake and Output: 02/16/17 02/16/17 06:59 18:59 Intake Total 2014 0 Output Total 2 Balance 2012 0 - Medications Medications: Current Medications Aspirin (Ecotrin) 81 mg PO DAILY [facility] Last Admin: 02/16/17 09:45 Dose: 81 mg Azithromycin (Zithromax) 250 mg PO DAILY [facility] PRN Reason: Protocol Last Admin: 02/16/17 09:47 Dose: 250 mg Cephalexin Monohydrate (Keflex) 500 mg PO BID [facility] PRN Reason: Protocol Last Admin: 02/16/17 17:19 Dose: 500 mg Furosemide (Lasix) 40 mg PO BID [facility] Last Admin: 02/16/17 17:19 Dose: 40 mg Guaifenesin (Robitussin) 100 mg PO Q6H [facility] Last Admin: 02/16/17 17:22 Dose: 100 mg Heparin Sodium/Sodium Chloride (Heparin 05553 Units/250ml 1/2 Normal Saline) 25 ,000 units in 250 mls @ 10.01 mls/hr IV .Q24H PRN; Protocol; 8.413 UNITS/KG/HR PRN Reason: ADJUST RATE PER PROTOCOL Last Admin: 02/16/17 11:17 Dose: 9.4 units/kg/hr, 11.184 mls/hr Ibuprofen (Motrin Tab) 400 mg PO Q6H PRN PRN Reason: Pain, moderate (4-7) Last Admin: 02/14/17 06:15 Dose: 400 mg Insulin Detemir (Levemir) 50 unit SC HS [facility] Insulin Human Lispro (Humalog Low) 0 units SC ACHS [facility] PRN Reason: Protocol Last Admin: 02/16/17 17:06 Dose: Not Given Insulin Human Lispro (Humalog) 20 units SC AC [facility] Last Admin: 02/16/17 17:18 Dose: 20 units Lisinopril (Zestril) 5 mg PO DAILY [facility] Last Admin: 02/16/17 09:47 Dose: 5 mg Metoprolol Tartrate (Lopressor) 25 mg PO BID [facility] Last Admin: 02/16/17 17:20 Dose: 25 mg Non-Formulary Medication (Diclofenac Sodium [Voltaren]) 1 % TOP TID [facility] Last Admin: 02/16/17 17:06 Dose: Not Given Pantoprazole Sodium (Protonix Ec Tab) 40 mg PO 0630 [facility] Last Admin: 02/16/17 05:31 Dose: 40 mg Prednisone (Prednisone Tab) 20 mg PO DAILY [facility] Warfarin Sodium (Coumadin) 10 mg PO 1800 [facility] PRN Reason: Protocol Last Admin: 02/16/17 17:19 Dose: 10 mg Warfarin Sodium (Coumadin) 2.5 mg PO 1800 [facility] PRN Reason: Protocol Last Admin: 02/16/17 17:19 Dose: 2.5 mg - Labs Labs: 02/16/17 08:10 02/16/17 08:10 PT 18.2 Seconds (9.9-11.8) H 02/16/17 08:10 INR 1.69 (0.93-1.08) H 02/16/17 08:10 APTT 57.6 Seconds (23.7-30.8) H 02/16/17 13:55 - Constitutional Appears: Non-toxic, No Acute Distress, Chronically Ill - Head Exam Head Exam: ATRAUMATIC, NORMOCEPHALIC - Eye Exam Eye Exam: EOMI, PERRL Pupil Exam: NORMAL ACCOMODATION, PERRL - ENT Exam ENT Exam: Mucous Membranes Moist, Normal External Ear Exam, TM's Normal Bilaterally - Neck Exam Neck Exam: Full ROM, Normal Inspection - Respiratory Exam Respiratory Exam: Clear to Ausculation Bilateral, NORMAL BREATHING PATTERN. absent: Rales, Rhonchi, Wheezes - Cardiovascular Exam Cardiovascular Exam: REGULAR RHYTHM, RRR, +S1, +S2 - GI/Abdominal Exam GI & Abdominal Exam: Soft, Normal Bowel Sounds. absent: Distended, Tenderness - Extremities Exam Extremities Exam: Full ROM, Normal Inspection - Neurological Exam Neurological Exam: Alert, Awake, CN II-XII Intact, Oriented x3 - Psychiatric Exam Psychiatric exam: Normal Affect, Normal Mood - Skin Skin Exam: Intact, Normal Color Assessment and Plan - Assessment and Plan (Free Text) Assessment: 46 yo AA female with CAP started on Rocephin and Azithromycin for now. Would consider Flagyl if there are concerns for aspiration pneumonia. Monitor transaminitis which is currently mild. Patient is continuing treatment for SLE and Diabetes. Hobbs cultures. RLL pneumonia. On evaluation today, the patient remains stable with minimal pulmonary symptoms. Can consider use of oral Keflex and Azithromycin to complete 7 days of therapy when ready for discharge unless patient completes therapy in hospital. Supportive care. New cardiac issues noted of dialated cardiomyopathy and EF of 15%. Being evaluated for pacemaker now. Thank you for allowing me to participate in the care of the patient, we will follow with you.
--- NOTE | 2017-02-16 20:14 | PN ---
DATE: 02/16/2017 The patient seen and examined at bedside. She is much more comfortable. She is not in respiratory or otherwise distress. She denies any cough and/or hemoptysis. PHYSICAL EXAMINATION: VITAL SIGNS: Temperature 98, heart rate 97, blood pressure 126/91, respiratory rate 20. HEAD AND NECK: Atraumatic. LUNGS: Clear to auscultation bilaterally. HEART: Regular rate rhythm. S1, S2 distant. ABDOMEN: Soft, nontender, nondistended. MUSCULOSKELETAL: No C/C/E. EXTREMITIES: Trace bilateral pedal and ankle edema. NEUROLOGIC: The patient moves all extremities spontaneously. SKIN: Moist. PSYCHIATRIC: The patient is alert and oriented x 3. LABORATORY DATA: Sodium 136, potassium 3.9, chloride 101, carbon dioxide 27, BUN 24, creatinine 1.1 up from 0.9, glucose 244, AST 147, ALT 401. WBC 20, hemoglobin 13.3, platelet count 549, PTT 57.6. MEDICATIONS: Aspirin, azithromycin, cephalexin, Lasix 40 mg p.o. b.i.d., heparin drip, morphine p.r.n., Levemir, lispro, lisinopril, metoprolol, Protonix , prednisone 50 mg daily, warfarin. ASSESSMENT AND PLAN: This is a 46-year-old lady with severe left ventricular systolic dysfunction/congestive heart failure who initially presented with some hemoptysis even before started on anticoagulation. The patient was treated with antibiotics, low dose steroids and antitussive for community-acquired pneumonia, which is most likely was an etiology for mild hemoptysis, which now resolved. At present time, she is actively tapering down her steroids and completing course of antibiotics. She also was found to have intracardiac thrombus, which is treated with therapeutic anticoagulation. The patient will have to undergo evaluation for a defibrillator, but that will be deferred to time period in several months, which gives time for the thrombus to resolve. The patient is on beta blockers, EITAN inhibitors for afterload reduction. She is on Lasix for conservative fluid management as well. We will taper off her steroids over the next several days, which will allow for better control of her blood glucose and because her hemoptysis is resolved at present time. I would continue to target euvolemia, euglycemia, normothermia and oxygen saturation more than 90%. I will continue with deep venous thrombosis and gastrointestinal prophylaxis. ccm time 40 min Abe Mike MD cc: [id number] TT: 02/16/2017 20:13:40 Confirmation # [id number] Dictation # [id number] MTDD
[2017-02-16] MEDS ORDERED: Insulin Detemir 100 units/ml Vial (Levemir) SC SCH ×2 (22:00)
[2017-02-17] MEDS: guaiFENesin 100 mg/5 ml Syrup UD PO SCH (05:50)
[2017-02-17] MEDS: Pantoprazole 40 mg EC Tab PO SCH (05:51)
[2017-02-17 07:04] LABS: ADD MANUAL DIFF? NO
[2017-02-17 07:20] LABS: BASO # 0.03 K/mm3 (0.0-2.0); BASO % 0.2 % (0.0-3.0); EOS # 0.1 (0.0-0.7); EOS % 0.3 % (1.5-5.0); GRAN # 11.74 (1.4-6.5); GRAN % 58.7 % (50.0-68.0); HEMATOCRIT 41.6 % (36.0-48.0); LYMPH # 6.7 (1.2-3.4); LYMPH % 33.5 % (22.0-35.0); MEAN CELL VOLUME 75.8 fL (80.0-105.0); MEAN CORPUSCULAR HEMOGLOBIN 24.6 pg (25.0-35.0); MEAN CORPUSCULAR HGB CONC 32.5 g/dl (31.0-37.0); MEAN PLATELET VOLUME 9.6 fl (7.0-11.0); MONO # 1.5 (0.1-0.6); MONO % 7.3 % (1.0-6.0); PLATELET COUNT 578 10^3/uL (120.0-450.0); RED CELL DISTRIBUTION WIDTH 14.6 % (11.5-14.5)
[2017-02-17 07:25] LABS: INR 3.22 (0.93-1.08); PARTIAL THROMBOPLASTIN TIME 61.6 Seconds (23.7-30.8)
[2017-02-17 07:26] LABS: ALB/GLOB RATIO 0.9 (1.1-1.8); ALKALINE PHOSPHATASE 421 U/L (38-133); ALT/SGPT 401 U/L (7-56); AST/SGOT 193 U/L (15-39); BILIRUBIN,TOTAL 0.8 mg/dL (0.2-1.3); BLOOD UREA NITROGEN 26 mg/dL (7-21); CARBON DIOXIDE 27 mmol/L (21-33); CHLORIDE 102 mmol/L (98-107); GFR AFRICAN-AMERICAN > 60; GLUCOSE,RANDOM 142 mg/dL (70-110); PHOSPHOROUS 2.9 mg/dL (2.5-4.5); POTASSIUM 3.6 mmol/L (3.6-5.0); SODIUM 136 mmol/L (132-148); TOTAL PROTEIN 6.9 g/dL (5.8-8.3)
[2017-02-17] MEDS ORDERED: guaiFENesin 100 mg/5 ml Syrup UD PO PRN (07:30)
[2017-02-17] MEDS: Insulin Lispro (humaLOG) LOW Coverage SC SCH ×4 (09:08→23:29)
[2017-02-17] MEDS: Insulin Lispro 1 UNITS/0.01 ML SC SCH ×3 (09:09→17:42)
--- NOTE | 2017-02-17 10:00 | PN ---
DATE: 02/17/2017 The patient is feeling well. She is ambulating in the room without shortness of breath. PHYSICAL EXAMINATION: VITAL SIGNS: Blood pressure is 120/90, heart rate is in the 90s. NECK: Negative JVD. LUNGS: Without rales. HEART: Reveals S1, S2. EXTREMITIES: Without edema. LABORATORIES: INR is 3.22. Chemistries: Glucose is 142, hemoglobin is 13.5 with a white count of 2 0. IMPRESSION: 1. Dilated cardiomyopathy. 2. Left ventricular thrombus. 3. Diabetes mellitus. 4. Obesity. 5. Pneumonia. Given these findings, we will discontinue her heparin. Her Coumadin needs to be adjusted. From a cardiac perspective, the patient can be discharged. We wi ll begin physical therapy. Once her INR is in stable condition, she can be discharged. After she is stabilized with anticoagula tion for several months, we will consider evaluation for ICD placement. Ric Gaston MD cc: [id number] TT: 02/17/2017 10:00:03 Confirmation # [id number] Dictation # [id number] tn
[2017-02-17] MEDS: DICLOFENAC SODIUM 1% TOP SCH ×3 (10:25→17:27)
--- NOTE | 2017-02-17 12:59 | CP.PCM.PN ---
<Derek Oconnell - Last Filed: 02/17/17 13:00> Subjective - Date & Time of Evaluation Date of Evaluation: 02/17/17 Time of Evaluation: 13:00 - Subjective Subjective: Medicine progress note. Attending: Dr. Martins Pt seen and examined at bedside. No acute distress. No events overnight. PT pending, INR supratherapeutic. will hold warfarin. No fevers, chills, vomiting, diarrhea. Objective - Vital Signs/Intake and Output Vital Signs (last 24 hours): Temp Pulse Resp BP Pulse Ox 98.2 F 98 H 20 131/79 100 02/17/17 05:32 02/17/17 10:37 02/17/17 05:32 02/17/17 10:37 02/17/17 05:32 Intake and Output: 02/17/17 02/17/17 06:59 18:59 Intake Total 411 Balance 411 - Medications Medications: Current Medications Aspirin (Ecotrin) 81 mg PO DAILY [facility] Last Admin: 02/17/17 10:37 Dose: 81 mg Azithromycin (Zithromax) 250 mg PO DAILY [facility] PRN Reason: Protocol Last Admin: 02/17/17 10:36 Dose: 250 mg Cephalexin Monohydrate (Keflex) 500 mg PO BID [facility] PRN Reason: Protocol Last Admin: 02/17/17 10:37 Dose: 500 mg Furosemide (Lasix) 40 mg PO BID [facility] Last Admin: 02/17/17 10:37 Dose: 40 mg Guaifenesin (Robitussin) 100 mg PO Q6H PRN PRN Reason: Cough Ibuprofen (Motrin Tab) 400 mg PO Q6H PRN PRN Reason: Pain, moderate (4-7) Last Admin: 02/16/17 22:40 Dose: 400 mg Insulin Detemir (Levemir) 50 unit SC HS [facility] Last Admin: 02/16/17 22:35 Dose: 50 unit Insulin Human Lispro (Humalog Low) 0 units SC ACHS [facility] PRN Reason: Protocol Last Admin: 02/17/17 12:53 Dose: Not Given Insulin Human Lispro (Humalog) 20 units SC AC [facility] Last Admin: 02/17/17 12:21 Dose: 20 units Lisinopril (Zestril) 5 mg PO DAILY [facility] Last Admin: 02/17/17 10:36 Dose: 5 mg Metoprolol Tartrate (Lopressor) 25 mg PO BID [facility] Last Admin: 02/17/17 10:37 Dose: 25 mg Non-Formulary Medication (Diclofenac Sodium [Voltaren]) 1 % TOP TID [facility] Last Admin: 02/17/17 10:25 Dose: Not Given Pantoprazole Sodium (Protonix Ec Tab) 40 mg PO 0630 [facility] Last Admin: 02/17/17 05:51 Dose: 40 mg Prednisone (Prednisone Tab) 10 mg PO DAILY [facility] - Labs Labs: 02/17/17 06:30 02/17/17 06:30 PT 34.8 Seconds (9.9-11.8) H* 02/17/17 06:30 INR 3.22 (0.93-1.08) H 02/17/17 06:30 APTT 61.6 Seconds (23.7-30.8) H 02/17/17 06:30 - Constitutional Appears: Non-toxic, No Acute Distress - Head Exam Head Exam: ATRAUMATIC, NORMAL INSPECTION, NORMOCEPHALIC - Eye Exam Eye Exam: EOMI - ENT Exam ENT Exam: Mucous Membranes Moist - Neck Exam Neck Exam: Full ROM, Normal Inspection - Respiratory Exam Respiratory Exam: NORMAL BREATHING PATTERN. absent: Respiratory Distress - Cardiovascular Exam Cardiovascular Exam: +S1, +S2 - GI/Abdominal Exam GI & Abdominal Exam: Soft, Normal Bowel Sounds. absent: Tenderness - Extremities Exam Extremities Exam: Full ROM, Normal Inspection - Neurological Exam Neurological Exam: Alert, Awake, CN II-XII Intact, Oriented x3 - Psychiatric Exam Psychiatric exam: Normal Affect, Normal Mood - Skin Skin Exam: Dry, Intact, Normal Color, Warm Assessment and Plan - Assessment and Plan (Free Text) Assessment: This is a 46 year old female with past medical history of hypertension, diabetes , hyperlipidemia, asthma, SLE, migraine SANTOS, uterine fibroids and spinal stenosis presenting with hemoptysis and cardiac thrombus on ECHO Cardiac thrombus: stopping heparin drip Ptt and coag monitor holding warfarin today INR 3.22 today, supratherapeutic may need to repeat imaging to determine response to tx Elevated troponins: 0.31, 0.36, 0.41, .21, trending down ASA 81,Lisinopril 2.5 mg PO QD, metoprolol 25 mg PO BID Cardiology consulted, help appreciated. pt is s/p cath with dilated cardiomyopathy, ef 15 percent Heart failure/cardiomyopathy milrinone drip has been discontinuex lasix 40 PO bid cardiology consult. recs appreciated. may need defibrillator will need to see EP outpatient HTN: lasix 40 mg PO BID, Lisinopril 2.5 mg PO QD, metoprolol 25 mg PO BID Community acquired pneumonia: -elevated wbcs likely secondary to steroids -D-dimer elevated at 2.02 -CTA showed right lower lobe acute pneumonia, no evidence of PE -d/c IV Rocephin and converted Azthromycin from IV to PO (02/12) -Aspiration precaution -O2 via NC prn -blood cx negative at 5 days and sputum cultures neg -mycoplasma pneu IgG positive, legionella ag negative -ID consulted Dr. Luther corbin appreciated -continue azithromycin 250 PO daily -continue cephalexin 500 mg PO daily Transaminitis -AST/ALT in ED 53/72 -hepatitis panel is negative -monitor and follow up AM labs -AST 193 and ALT 401 today, likely multifactorial in etiology -GI consult with Dr. Boyd. recs appreciated. Asthma: Albuterol/ipratropium IH prn continue prednisone 10 mg po daily HLD: lipitor on hold Diabetes: ISS, FS ACHS, Consistent carb diet levemir 50 units hs will add humalog 20 units AC DM uncontrolled with A1C of 11.[address] Purvis. recs appreciated. SLE: home Hydroxychloroquine Prophylactic measures -Protonix for GI ppx -Motrin for pain and fever discussed with Dr. Martins <Rob Martins - Last Filed: 02/17/17 20:20> Objective - Vital Signs/Intake and Output Vital Signs (last 24 hours): Temp Pulse Resp BP Pulse Ox 98.5 F 89 20 113/73 100 02/17/17 12:00 02/17/17 18:37 02/17/17 12:00 02/17/17 18:37 02/17/17 05:32 - Medications Medications: Current Medications Aspirin (Ecotrin) 81 mg PO DAILY [facility] Last Admin: 02/17/17 10:37 Dose: 81 mg Azithromycin (Zithromax) 250 mg PO DAILY [facility] PRN Reason: Protocol Last Admin: 02/17/17 10:36 Dose: 250 mg Cephalexin Monohydrate (Keflex) 500 mg PO BID [facility] PRN Reason: Protocol Last Admin: 02/17/17 17:39 Dose: 500 mg Furosemide (Lasix) 40 mg PO BID [facility] Last Admin: 02/17/17 17:42 Dose: 40 mg Guaifenesin (Robitussin) 100 mg PO Q6H PRN PRN Reason: Cough Last Admin: 02/17/17 17:39 Dose: 100 mg Ibuprofen (Motrin Tab) 400 mg PO Q6H PRN PRN Reason: Pain, moderate (4-7) Last Admin: 02/16/17 22:40 Dose: 400 mg Insulin Detemir (Levemir) 40 unit SC HS [facility] Insulin Human Lispro (Humalog Low) 0 units SC ACHS [facility] PRN Reason: Protocol Last Admin: 02/17/17 17:44 Dose: Not Given Insulin Human Lispro (Humalog) 14 units SC AC [facility] Last Admin: 02/17/17 17:42 Dose: 14 units Lisinopril (Zestril) 5 mg PO DAILY [facility] Last Admin: 02/17/17 10:36 Dose: 5 mg Metoprolol Tartrate (Lopressor) 25 mg PO BID [facility] Last Admin: 02/17/17 18:37 Dose: 25 mg Non-Formulary Medication (Diclofenac Sodium [Voltaren]) 1 % TOP TID [facility] Last Admin: 02/17/17 17:27 Dose: Not Given Pantoprazole Sodium (Protonix Ec Tab) 40 mg PO 0630 [facility] Last Admin: 02/17/17 05:51 Dose: 40 mg Prednisone (Prednisone Tab) 10 mg PO DAILY [facility] - Labs Labs: 02/17/17 06:30 02/17/17 06:30 PT 34.8 Seconds (9.9-11.8) H* 02/17/17 06:30 INR 3.22 (0.93-1.08) H 02/17/17 06:30 APTT 61.6 Seconds (23.7-30.8) H 02/17/17 06:30 Attending/Attestation - Attestation I have personally seen and examined this patient.: Yes I have fully participated in the care of the patient.: Yes I have reviewed all pertinent clinical information, including history, physical exam and plan: Yes Notes (Text): 02/17/17 20:16 46 year old female with multiple past medical problems who presented with complaint of cough and hemoptysis. She was found to have pneumonia and started on antibiotics and steroids. Symptoms are improving and her steroids are being tapered. Leukocytosis is likely secondary to steroids. She was also found to have cardiac thrombus with elevated cardiac enzymes for which she is on aspirin, plavix, lisinopril and metoprolol. Statin was held due to elevated LFTs. She is s/p cardiac cath which showed noncritical CAD and severe cardiomyopathy for which she which she is on lasix. She was on heparin drip and coumadin for anticoagulation. However today INR is supratherapeutic at 3.22 so we will hold and recheck INR in AM. Patient will need EP eval for defibrillator placement in few months as per cardiology after treatment of her cardiac thrombus. GI evaluation was appreciated for elevated LFTs, likely mutifactorial. Will continue to monitor. Hepatitis panel was negative. US abdomen showed fatty liver. Ultrasound also showed 7 mm stone with ?mild right hydronephrosis. She denies any flank pain or dysuria. Recommended outpatient urology follow up. 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 Her A1c was 11.7. Overall her symptoms have improved. PT evaluation was requested for d/c planning. Rob Martins MD Hospitalist.
--- NOTE | 2017-02-17 16:10 | CP.PCM.PN ---
Subjective - Date & Time of Evaluation Date of Evaluation: 02/17/17 Time of Evaluation: 14:00 - Subjective Subjective: Infectious Disease Follow Up: February 17, 2017 46 yo AA female with extensive past medical history presenting with hemoptysis. She was treated with Azithromycin without improvement. The patient reports headaches, shortness of breath, nausea, vomiting, and chest tightness. The patient has leukocytosis and potential pneumonia. Clot seen in echocardiogram. The patient has a history of Lupus, asthma, diabetes. Cardiac cath with findings of dialated cardiomyopathy and EF of 15%. On Ceftriaxone and Azithromycin. No major complaints. Nearing completion of antibiotics. Objective - Vital Signs/Intake and Output Vital Signs (last 24 hours): Temp Pulse Resp BP Pulse Ox 98.5 F 95 H 20 130/67 100 02/17/17 12:00 02/17/17 12:00 02/17/17 12:00 02/17/17 12:00 02/17/17 05:32 Intake and Output: 02/17/17 02/17/17 06:59 18:59 Intake Total 411 Balance 411 - Medications Medications: Current Medications Aspirin (Ecotrin) 81 mg PO DAILY [facility] Last Admin: 02/17/17 10:37 Dose: 81 mg Azithromycin (Zithromax) 250 mg PO DAILY [facility] PRN Reason: Protocol Last Admin: 02/17/17 10:36 Dose: 250 mg Cephalexin Monohydrate (Keflex) 500 mg PO BID [facility] PRN Reason: Protocol Last Admin: 02/17/17 10:37 Dose: 500 mg Furosemide (Lasix) 40 mg PO BID [facility] Last Admin: 02/17/17 10:37 Dose: 40 mg Guaifenesin (Robitussin) 100 mg PO Q6H PRN PRN Reason: Cough Ibuprofen (Motrin Tab) 400 mg PO Q6H PRN PRN Reason: Pain, moderate (4-7) Last Admin: 02/16/17 22:40 Dose: 400 mg Insulin Detemir (Levemir) 40 unit SC HS [facility] Insulin Human Lispro (Humalog Low) 0 units SC ACHS [facility] PRN Reason: Protocol Last Admin: 02/17/17 12:53 Dose: Not Given Insulin Human Lispro (Humalog) 14 units SC AC [facility] Lisinopril (Zestril) 5 mg PO DAILY [facility] Last Admin: 02/17/17 10:36 Dose: 5 mg Metoprolol Tartrate (Lopressor) 25 mg PO BID [facility] Last Admin: 02/17/17 10:37 Dose: 25 mg Non-Formulary Medication (Diclofenac Sodium [Voltaren]) 1 % TOP TID [facility] Last Admin: 02/17/17 14:27 Dose: Not Given Pantoprazole Sodium (Protonix Ec Tab) 40 mg PO 0630 [facility] Last Admin: 02/17/17 05:51 Dose: 40 mg Prednisone (Prednisone Tab) 10 mg PO DAILY [facility] - Labs Labs: 02/17/17 06:30 02/17/17 06:30 PT 34.8 Seconds (9.9-11.8) H* 02/17/17 06:30 INR 3.22 (0.93-1.08) H 02/17/17 06:30 APTT 61.6 Seconds (23.7-30.8) H 02/17/17 06:30 - Constitutional Appears: Non-toxic, No Acute Distress, Chronically Ill - Head Exam Head Exam: ATRAUMATIC, NORMOCEPHALIC - Eye Exam Eye Exam: EOMI, PERRL Pupil Exam: NORMAL ACCOMODATION, PERRL - ENT Exam ENT Exam: Mucous Membranes Moist, Normal External Ear Exam, TM's Normal Bilaterally - Neck Exam Neck Exam: Full ROM, Normal Inspection - Respiratory Exam Respiratory Exam: Clear to Ausculation Bilateral, NORMAL BREATHING PATTERN. absent: Rales, Rhonchi, Wheezes - Cardiovascular Exam Cardiovascular Exam: REGULAR RHYTHM, RRR, +S1, +S2 - GI/Abdominal Exam GI & Abdominal Exam: Soft, Normal Bowel Sounds. absent: Distended, Tenderness - Extremities Exam Extremities Exam: Full ROM, Normal Inspection - Neurological Exam Neurological Exam: Alert, Awake, CN II-XII Intact, Oriented x3 - Psychiatric Exam Psychiatric exam: Normal Affect, Normal Mood - Skin Skin Exam: Intact, Normal Color Assessment and Plan - Assessment and Plan (Free Text) Assessment: 46 yo AA female with CAP started on Rocephin and Azithromycin for now. Would consider Flagyl if there are concerns for aspiration pneumonia. Monitor transaminitis which is currently mild. Patient is continuing treatment for SLE and Diabetes. Hobbs cultures. RLL pneumonia. On evaluation today, the patient remains stable with minimal pulmonary symptoms. Can consider use of oral Keflex and Azithromycin to complete 7 days of therapy when ready for discharge unless patient completes therapy in hospital. However, the patient's long hospitalization may point to completion of the antibiotic before discharge. Supportive care. New cardiac issues noted of dialated cardiomyopathy and EF of 15%. Being evaluated for pacemaker now. Thank you for allowing me to participate in the care of the patient, we will follow with you.
--- NOTE | 2017-02-17 20:14 | PN ---
DATE: 02/17/2017 ROOM: 275. SUBJECTIVE: This is a 46-year-old female with recent uncontrolled type 2 insulin-requiring diabetes, presenting here with progressive shortness of breath and evaluated to have acute exacerbation of ast hmatic bronchitis with underlying pneumonia and started on IV steroid therapy with supervening hyperg lycemic accelerations as expected thereof. She has now been switched over to oral steroids and tate kaurly on prednisone given as 10 mg once daily as ordered. Her glycemic levels are fluctuating, but mu ch improved at this time and the glucose values have ranged from 141-237 and 244 mg/dL. Her latest c hemistries showed a BUN of 26, sodium 136, potassium 3.6, chloride 102, CO2 27, glucose 142, and crea tinine 1.1. So, at this time, we will modify once again her basal and bolus insulin regimen and lowe r the Levemir to 40 units subQ at bedtime daily as ordered. We will also lower the Humalog to 14 uni ts subQ t.i.d. before meals as ordered. We will titrate incrementally as indicated to optimize metab olic control. We will follow. Aisha Purvis MD cc: [id number] TT: 02/17/2017 20:13:33 Confirmation # [id number] Dictation # [id number]
[2017-02-17] MEDS ORDERED: Insulin Detemir 100 units/ml Vial (Levemir) SC SCH (22:00)
[2017-02-18] MEDS: Pantoprazole 40 mg EC Tab PO SCH (05:31)
--- NOTE | 2017-02-18 07:02 | PN ---
DATE: 02/18/2017 SUBJECTVE: I reviewed the most recent progress notes and laboratory data on the patient. The patient is a 46-year-old weight-challenged female evaluated for elevated LFTs, which occurred during the hospital admission. Examination of the notes current data indicate that the patient was not having any abdominal pain. The patient was subsequently started on oral anticoagulation and the patient is ambulating in the room without shortness of breath. Her heparin has been discontinued. The overall impression of Dr. Ric Gaston dilated cardiomyopathy with left ventricular thrombus, diabetes, obesity and pneumonia. LABS: Review of her laboratory data indicate a white count of roughly 20,000 with a stable H and H. Serology for hepatitis is noncontributory. Note that her alkaline phosphatase has been gradually creeping up, most recent as of yesterday 421 with AST, ALT ratio of 193/41, which is mildly elevated from . Bilirubin has been normal. I reviewed Dr. Sloan's note. The patient is currently on ceftriaxone as well as azithromycin. OVERALL ASSESSMENT: This is a patient with multiple problems including those mentioned above, being treated by multiple consultants including Dr. Sloan, Dr. Gaston, and Dr. Martins. As indicated previously her elevation of liver function tests is probably multifactorial. Major factors include dilated cardiomyopathy with thrombus, pneumonia and antibiotic therapy. The patient also has hepatic steatosis, which is compounding the issue as well. They should continue to monitor the transaminases at the current time point. Jelani Boyd DO, PhD cc: [id number] TT: 02/18/2017 07:01:03 Confirmation # [id number] Dictation # [id number] aimee WU
[2017-02-18 07:58] LABS: ADD MANUAL DIFF? NO
[2017-02-18] MEDS: Insulin Lispro 1 UNITS/0.01 ML SC SCH ×2 (07:59→12:59)
[2017-02-18] MEDS: Insulin Lispro (humaLOG) LOW Coverage SC SCH ×2 (08:00→12:30)
[2017-02-18 08:03] LABS: BASO # 0.01 K/mm3 (0.0-2.0); BASO % 0.1 % (0.0-3.0); EOS # 0.1 (0.0-0.7); EOS % 0.6 % (1.5-5.0); GRAN # 8.17 (1.4-6.5); GRAN % 52.8 % (50.0-68.0); HEMATOCRIT 40.5 % (36.0-48.0); LYMPH # 6.3 (1.2-3.4); LYMPH % 40.7 % (22.0-35.0); MEAN CELL VOLUME 75.7 fL (80.0-105.0); MEAN CORPUSCULAR HEMOGLOBIN 24.3 pg (25.0-35.0); MEAN CORPUSCULAR HGB CONC 32.1 g/dl (31.0-37.0); MEAN PLATELET VOLUME 9.2 fl (7.0-11.0); MONO # 0.9 (0.1-0.6); MONO % 5.8 % (1.0-6.0); PLATELET COUNT 475 10^3/uL (120.0-450.0); RED CELL DISTRIBUTION WIDTH 14.7 % (11.5-14.5); WHITE BLOOD COUNT 15.5 10^3/ul (4.5-11.0)
[2017-02-18 08:12] LABS: ALB/GLOB RATIO 0.9 (1.1-1.8); ALKALINE PHOSPHATASE 326 U/L (38-133); ALT/SGPT 293 U/L (7-56); AST/SGOT 77 U/L (15-39); BILIRUBIN,TOTAL 0.8 mg/dL (0.2-1.3); BLOOD UREA NITROGEN 22 mg/dL (7-21); CALCIUM 8.8 mg/dL (8.4-10.5); CARBON DIOXIDE 31 mmol/L (21-33); CHLORIDE 101 mmol/L (98-107); GFR AFRICAN-AMERICAN > 60; GLUCOSE,RANDOM 130 mg/dL (70-110); INR 3.22 (0.93-1.08); MAGNESIUM 1.9 mg/dL (1.7-2.2); PHOSPHOROUS 2.7 mg/dL (2.5-4.5); POTASSIUM 3.2 mmol/L (3.6-5.0); SODIUM 138 mmol/L (132-148); TOTAL PROTEIN 6.6 g/dL (5.8-8.3)
[2017-02-18 09:02] VITALS: BP 110/67; PULSE 91; RESP 20; TEMP 97.6; O2SAT 97
--- NOTE | 2017-02-18 09:58 | PN ---
DATE: 02/18/2017 ROOM: 573 SUBJECTIVE: This is a 46-year-old female with recent uncontrolled type 2 insulin-requiring diabetes, presenting here with marked hyperglycemic accelerations despite a combination of both oral hypoglyce elza therapy and insulin therapy given on the outpatient. She presented with pneumonia and an acute e xacerbation of asthmatic bronchitis and was started on IV steroids, which contributed also to the hyp erglycemic accelerations as noted. However, at this time she has been switched over now to oral ster oids with prednisone given as 10 mg daily as noted. Her glycemic levels are fluctuating, but improve d, and the latest glucose levels have ranged from 149 noted today before breakfast, it was still 347 at bedtime last night. So at this time, we will continue the same basal and bolus insulin regimen to allow for dose equilibration and keep her on the Levemir given as 40 units subQ at bedtime daily as ordered. We will continue also the Humalog given as 14 units subQ t.i.d. before meals as ordered. W e will titrate incrementally as indicated to optimize metabolic control. We will also continue the l ow-dose correction scale using Humalog insulin as given. We will follow. Aisha Purvis MD cc: [id number] TT: 02/18/2017 09:58:03 Confirmation # [id number] Dictation # [id number] jn
[2017-02-18] MEDS: DICLOFENAC SODIUM 1% TOP SCH (10:50)
--- NOTE | 2017-02-18 18:17 | CP.PCM.DIS ---
<Leoncio Olson - Last Filed: 02/18/17 18:09> Provider - Provider Date of Admission: 02/10/17 15:30 Attending physician: Rob Martins MD Primary care physician: Ben Miles DO Consults: ID: Go Endo: Cam GI: Connori ICU: [facility]mid Cardio: [place] Time Spent in preparation of Discharge (in minutes): 45 Diagnosis - Discharge Diagnosis (1) NSTEMI (non-ST elevated myocardial infarction) Status: Resolved Priority: High (2) Mural thrombus of cardiac apex Status: Acute Priority: High (3) Heart failure Status: Chronic Priority: Medium (4) CAP (community acquired pneumonia) Status: Resolved Priority: Low (5) Transaminitis Status: Chronic Priority: Low Hospital Course - Lab Results Lab Results: Most Recent Lab Values WBC 15.5 10^3/ul (4.5-11.0) H D 02/18/17 07:54 RBC 5.35 10^6/uL (3.5-6.1) 02/18/17 07:54 Hgb 13.0 gm/dL (12.0-16.0) 02/18/17 07:54 Hct 40.5 % (36.0-48.0) 02/18/17 07:54 MCV 75.7 fL (80.0-105.0) L 02/18/17 07:54 MCH 24.3 pg (25.0-35.0) L 02/18/17 07:54 MCHC 32.1 g/dl (31.0-37.0) 02/18/17 07:54 RDW 14.7 % (11.5-14.5) H 02/18/17 07:54 Plt Count 475 10^3/uL (120.0-450.0) H 02/18/17 07:54 MPV 9.2 fl (7.0-11.0) 02/18/17 07:54 Gran % 52.8 % (50.0-68.0) 02/18/17 07:54 Lymph % (Auto) 40.7 % (22.0-35.0) H 02/18/17 07:54 Door % (Auto) 5.8 % (1.0-6.0) 02/18/17 07:54 Eos % (Auto) 0.6 % (1.5-5.0) L 02/18/17 07:54 Baso % (Auto) 0.1 % (0.0-3.0) 02/18/17 07:54 Gran # 8.17 (1.4-6.5) H 02/18/17 07:54 Lymph # 6.3 (1.2-3.4) H 02/18/17 07:54 Door # 0.9 (0.1-0.6) H 02/18/17 07:54 Eos # 0.1 (0.0-0.7) 02/18/17 07:54 Baso # 0.01 K/mm3 (0.0-2.0) 02/18/17 07:54 PT 34.8 Seconds (9.9-11.8) H* 02/18/17 07:54 INR 3.22 (0.93-1.08) H 02/18/17 07:54 APTT 61.6 Seconds (23.7-30.8) H 02/17/17 06:30 D-Dimer, Quantitative 2.02 mg/L FEU (0-0.50) H 02/09/17 15:39 Sodium 138 mmol/L (132-148) 02/18/17 07:54 Potassium 3.2 mmol/L (3.6-5.0) L 02/18/17 07:54 Chloride 101 mmol/L (98-107) 02/18/17 07:54 Carbon Dioxide 31 mmol/L (21-33) 02/18/17 07:54 Anion Gap 9 (10-20) L 02/18/17 07:54 BUN 22 mg/dL (7-21) H 02/18/17 07:54 Creatinine 1.0 mg/dL (0.5-1.4) 02/18/17 07:54 Est GFR ( Amer) > 60 02/18/17 07:54 Est GFR (Non-Af Amer) 59 02/18/17 07:54 POC Glucose (mg/dL) 208 mg/dL (65-110) H 02/18/17 11:36 Random Glucose 130 mg/dL (70-110) H 02/18/17 07:54 Hemoglobin A1c 11.7 % (4.2-6.5) H 02/16/17 08:10 Calcium 8.8 mg/dL (8.4-10.5) 02/18/17 07:54 Phosphorus 2.7 mg/dL (2.5-4.5) 02/18/17 07:54 Magnesium 1.9 mg/dL (1.7-2.2) 02/18/17 07:54 Total Bilirubin 0.8 mg/dL (0.2-1.3) 02/18/17 07:54 AST 77 U/L (15-39) H 02/18/17 07:54 ALT 293 U/L (7-56) H 02/18/17 07:54 Alkaline Phosphatase 326 U/L (38-133) H 02/18/17 07:54 Lactate Dehydrogenase 636 U/L (333-699) 02/11/17 07:57 Total Creatine Kinase 106 U/L (35-230) 02/11/17 07:57 Troponin I 0.12 ng/mL D 02/13/17 05:30 C-React Prot High Sens > 15.00 mg/L (1.00-3.00) H 02/11/17 19:20 NT-Pro-B Natriuret Pep 1330 pg/mL (0-450) H 02/09/17 16:43 Total Protein 6.6 g/dL (5.8-8.3) 02/18/17 07:54 Albumin 3.1 g/dL (3.0-4.8) 02/18/17 07:54 Globulin 3.5 gm/dL 02/18/17 07:54 Albumin/Globulin Ratio 0.9 (1.1-1.8) L 02/18/17 07:54 Triglycerides 79 mg/dL (35-160) 02/12/17 08:20 Cholesterol 134 mg/dL (130-200) 02/12/17 08:20 LDL Cholesterol Direct 94 mg/dL (0-129) 02/12/17 08:20 HDL Cholesterol 28 mg/dL (29-60) L 02/12/17 08:20 Procalcitonin 0.10 NG/ML (0.19-0.49) L 02/10/17 09:00 Hepatitis A IgM Ab Negative (NEGATIVE) 02/10/17 09:00 Hep Bs Antigen Negative (NEGATIVE) 02/10/17 09:00 Hep B Core IgM Ab Negative (NEGATIVE) 02/10/17 09:00 Hepatitis C Antibody Negative (NEGATIVE) 02/10/17 09:00 Ur L.pneumophila Ag Negative (NEGATIVE) 02/09/17 20:21 Mycoplasma pneumon IgG 1.76 (<=0.90) H 02/10/17 05:00 Mycoplasma pneumon IgM 72 U/mL (<770) 02/10/17 05:00 Pneumocystis Source Serum 02/10/17 08:15 S. pneumoniae Antigen Not detected 02/10/17 08:15 TB Test (QFT) Nil 0.03 IU/mL 02/10/17 09:00 TB Test Mitogen - Nil 4.03 IU/mL 02/10/17 09:00 TB Test TB - Nil 0.01 IU/mL 02/10/17 09:00 TB Test (QFT) Negative (Negative) 02/10/17 09:00 - Hospital Course Hospital Course: This is a 46 yo AA F with PMH of HTN, HLD, DM, asthma, SLE, and spinal stenosis who presented to [facility] with hemoptysis and was incidentally found to have a cardiac thrombus, elevated troponins, CAP, and HF with an EF < 20%. She was transferred to the ICU for close monitoring while being placed on a heparin drip. While here, she was seen by ID, Endo, Cardio, and GI. As per ID, she was treated with Keflex and Azithromycin, for which she completed a 6 day course ; her persisting leukocytosis towards the end of admission was suspected to be 2 /2 steroid use. As per Cardio, she underwent cardiac cath, which confirmed low EF (~15%) with severe dilated cardiomyopathy and LV thrombus. She was bridged to Coumadin on heparin drip, as was started on Milronine drip, which was discontinued prior to discharge. Also per Cardio, she was assessed for ICD, and was instructed to follow up with an EP as an outpatient after stabilized for several months on anticoagulation for pacer assessment and placement. As per GI, her persistent transaminitis was likely multifactorial, including 2/2 the cardiac conditions and pneumonia, as well as the hepatic steatosis she was determined to have. GI recommended monitoring only. As per Endo, her recently poorly controlled sugars were likely due to her steroids as well, so she was managed with Humalog 14u with meals and Levemir 40u nightly. Patient's scripts (including coumadin) were electronically transmitted to the pharmacy of her choice. She was instructed to take all meds as prescribed, to follow up with her PCP, Cardiology, and an EP for eventually pacer placement. She expressed understanding and agreement with these instructions, and after all questions were answered to her satisfaction, she was discharged. Discharge Exam - Head Exam Head Exam: ATRAUMATIC, NORMAL INSPECTION, NORMOCEPHALIC - Eye Exam Eye Exam: EOMI, Normal appearance. absent: Conjunctival injection, Scleral icterus Pupil Exam: absent: Irregular, Unequal - ENT Exam ENT Exam: Mucous Membranes Moist - Neck Exam Neck exam: Full Rom - Respiratory Exam Respiratory Exam: Decreased Breath Sounds (mild decreased breath sounds globally , likely 2/2 habitus), NORMAL BREATHING PATTERN, UNREMARKABLE. absent: Accessory Muscle Use, Chest Wall Tenderness, Rales, Rhonchi, Wheezes, Respiratory Distress - Cardiovascular Exam Cardiovascular Exam: REGULAR RHYTHM, RRR, +S1, +S2. absent: Bradycardia, Tachycardia, Irregular Rhythm, +S4 - GI/Abdominal Exam GI & Abdominal Exam: Normal Bowel Sounds, Soft, Unremarkable. absent: Diminished Bowel Sounds, Distended (obese but not distended), Hyperactive Bowel Sounds, Hypoactive Bowel Sounds, Tenderness - Extremities Exam Additional comments: trace pitting edema in bilateral LE, no gross asymmetries, no erythema or abnormal warmth/coolness to palpation unable to palpate dorsalis pedis pulses bilaterally - Neurological Exam Neurological exam: Alert, Oriented x3 - Psychiatric Exam Psychiatric exam: Normal Affect, Normal Mood - Skin Skin Exam: Dry, Intact, Normal Color, Warm Discharge Plan - Discharge Medications Prescriptions: Warfarin [Coumadin] 10 mg PO DAILY #30 tab - Follow Up Plan Condition: STABLE Disposition: HOME/ ROUTINE Instructions: Warfarin (By mouth), Electrophysiology Study (DC), Pneumococcal Vaccine for Adults (DC), Heart Healthy Diet (DC), Atrial Tachycardia (DC), Pneumonia (DC) Referrals: Ben Miles DO [Primary Care Provider] - Jesus ALDANA,MD Dom [Staff Provider] - <Stephie Auguste - Last Filed: 02/18/17 22:14> Provider - Provider Date of Admission: 02/10/17 15:30 Attending physician: Rob Martins MD Primary care physician: Ben Miles DO [facility] Hospital Course - Lab Results Lab Results: Most Recent Lab Values WBC 15.5 10^3/ul (4.5-11.0) H D 02/18/17 07:54 RBC 5.35 10^6/uL (3.5-6.1) 02/18/17 07:54 Hgb 13.0 gm/dL (12.0-16.0) 02/18/17 07:54 Hct 40.5 % (36.0-48.0) 02/18/17 07:54 MCV 75.7 fL (80.0-105.0) L 02/18/17 07:54 MCH 24.3 pg (25.0-35.0) L 02/18/17 07:54 MCHC 32.1 g/dl (31.0-37.0) 02/18/17 07:54 RDW 14.7 % (11.5-14.5) H 02/18/17 07:54 Plt Count 475 10^3/uL (120.0-450.0) H 02/18/17 07:54 MPV 9.2 fl (7.0-11.0) 02/18/17 07:54 Gran % 52.8 % (50.0-68.0) 02/18/17 07:54 Lymph % (Auto) 40.7 % (22.0-35.0) H 02/18/17 07:54 Door % (Auto) 5.8 % (1.0-6.0) 02/18/17 07:54 Eos % (Auto) 0.6 % (1.5-5.0) L 02/18/17 07:54 Baso % (Auto) 0.1 % (0.0-3.0) 02/18/17 07:54 Gran # 8.17 (1.4-6.5) H 02/18/17 07:54 Lymph # 6.3 (1.2-3.4) H 02/18/17 07:54 Door # 0.9 (0.1-0.6) H 02/18/17 07:54 Eos # 0.1 (0.0-0.7) 02/18/17 07:54 Baso # 0.01 K/mm3 (0.0-2.0) 02/18/17 07:54 PT 34.8 Seconds (9.9-11.8) H* 02/18/17 07:54 INR 3.22 (0.93-1.08) H 02/18/17 07:54 APTT 61.6 Seconds (23.7-30.8) H 02/17/17 06:30 D-Dimer, Quantitative 2.02 mg/L FEU (0-0.50) H 02/09/17 15:39 Sodium 138 mmol/L (132-148) 02/18/17 07:54 Potassium 3.2 mmol/L (3.6-5.0) L 02/18/17 07:54 Chloride 101 mmol/L (98-107) 02/18/17 07:54 Carbon Dioxide 31 mmol/L (21-33) 02/18/17 07:54 Anion Gap 9 (10-20) L 02/18/17 07:54 BUN 22 mg/dL (7-21) H 02/18/17 07:54 Creatinine 1.0 mg/dL (0.5-1.4) 02/18/17 07:54 Est GFR ( Amer) > 60 02/18/17 07:54 Est GFR (Non-Af Amer) 59 02/18/17 07:54 POC Glucose (mg/dL) 208 mg/dL (65-110) H 02/18/17 11:36 Random Glucose 130 mg/dL (70-110) H 02/18/17 07:54 Hemoglobin A1c 11.7 % (4.2-6.5) H 02/16/17 08:10 Calcium 8.8 mg/dL (8.4-10.5) 02/18/17 07:54 Phosphorus 2.7 mg/dL (2.5-4.5) 02/18/17 07:54 Magnesium 1.9 mg/dL (1.7-2.2) 02/18/17 07:54 Total Bilirubin 0.8 mg/dL (0.2-1.3) 02/18/17 07:54 AST 77 U/L (15-39) H 02/18/17 07:54 ALT 293 U/L (7-56) H 02/18/17 07:54 Alkaline Phosphatase 326 U/L (38-133) H 02/18/17 07:54 Lactate Dehydrogenase 636 U/L (333-699) 02/11/17 07:57 Total Creatine Kinase 106 U/L (35-230) 02/11/17 07:57 Troponin I 0.12 ng/mL D 02/13/17 05:30 C-React Prot High Sens > 15.00 mg/L (1.00-3.00) H 02/11/17 19:20 NT-Pro-B Natriuret Pep 1330 pg/mL (0-450) H 02/09/17 16:43 Total Protein 6.6 g/dL (5.8-8.3) 02/18/17 07:54 Albumin 3.1 g/dL (3.0-4.8) 02/18/17 07:54 Globulin 3.5 gm/dL 02/18/17 07:54 Albumin/Globulin Ratio 0.9 (1.1-1.8) L 02/18/17 07:54 Triglycerides 79 mg/dL (35-160) 02/12/17 08:20 Cholesterol 134 mg/dL (130-200) 02/12/17 08:20 LDL Cholesterol Direct 94 mg/dL (0-129) 02/12/17 08:20 HDL Cholesterol 28 mg/dL (29-60) L 02/12/17 08:20 Procalcitonin 0.10 NG/ML (0.19-0.49) L 02/10/17 09:00 Hepatitis A IgM Ab Negative (NEGATIVE) 02/10/17 09:00 Hep Bs Antigen Negative (NEGATIVE) 02/10/17 09:00 Hep B Core IgM Ab Negative (NEGATIVE) 02/10/17 09:00 Hepatitis C Antibody Negative (NEGATIVE) 02/10/17 09:00 Ur L.pneumophila Ag Negative (NEGATIVE) 02/09/17 20:21 Mycoplasma pneumon IgG 1.76 (<=0.90) H 02/10/17 05:00 Mycoplasma pneumon IgM 72 U/mL (<770) 02/10/17 05:00 Pneumocystis Source Serum 02/10/17 08:15 S. pneumoniae Antigen Not detected 02/10/17 08:15 TB Test (QFT) Nil 0.03 IU/mL 02/10/17 09:00 TB Test Mitogen - Nil 4.03 IU/mL 02/10/17 09:00 TB Test TB - Nil 0.01 IU/mL 02/10/17 09:00 TB Test (QFT) Negative (Negative) 02/10/17 09:00 Attending/Attestation - Attestation I have personally seen and examined this patient.: Yes I have fully participated in the care of the patient.: Yes I have reviewed all pertinent clinical information, including history, physical exam and plan: Yes Notes (Text): 02/18/17 22:11 patient seen and examined at bedside.Labs, vitals, notes reviewed. Patient's INR is therapeutic. She feels better and is ambulatory and tolerating her diet well. Discharge plan clearly outlined and follow up plan explained clearly to the patient including INR check, EP follow up, alarming symptoms to watch out for in light of her current condition etc. Prescriptions will be tranmitted to pharmacy. Reviewed and agree with the plan of care outlined by the resident.
== END 2017-02-18 16:54 | disposition home or self-care (01) | DRG 280 ==
LOC: ED 14:35 → ERH 18:03 → 3RSO 20:28 → INTOOBSV 02-10 10:12 → OBSVTOIN 02-10 10:12 → 2RNO 02-11 12:22 → 2RSO 02-13 12:41 → 5RSO 02-18 00:41
PROVIDERS: ADMIT Internal Medicine; ATTEND Internal Medicine
PROC: 4A023N7 Measurement of Cardiac Sampling and Pressure, Left Heart, Percutaneous Approach (ICD-10-PCS; principal; 2017-02-13)
PROC: B2011ZZ Plain Radiography of Multiple Coronary Arteries using Low Osmolar Contrast (ICD-10-PCS; 2017-02-13)
PROC: 3E083GC Introduction of Other Therapeutic Substance into Heart, Percutaneous Approach (ICD-10-PCS; 2017-02-13)
PROC: 3E033GC Introduction of Other Therapeutic Substance into Peripheral Vein, Percutaneous Approach (ICD-10-PCS; 2017-02-14)
DX: I21.4 Non-ST elevation (NSTEMI) myocardial infarction (principal); J18.9 Pneumonia, unspecified organism; I50.21 Acute systolic (congestive) heart failure; I42.0 Dilated cardiomyopathy; J44.0 Chronic obstructive pulmonary disease with (acute) lower respiratory infection; J45.901 Unspecified asthma with (acute) exacerbation; N13.2 Hydronephrosis with renal and ureteral calculous obstruction; Z68.41 Body mass index [BMI] 40.0-44.9, adult; I51.3 Intracardiac thrombosis, not elsewhere classified; I25.10 Atherosclerotic heart disease of native coronary artery without angina pectoris; E11.65 Type 2 diabetes mellitus with hyperglycemia; I11.0 Hypertensive heart disease with heart failure; M32.9 Systemic lupus erythematosus, unspecified; I08.1 Rheumatic disorders of both mitral and tricuspid valves; I27.2 Other secondary pulmonary hypertension; E66.01 Morbid (severe) obesity due to excess calories; K21.9 Gastro-esophageal reflux disease without esophagitis; E78.5 Hyperlipidemia, unspecified; M48.00 Spinal stenosis, site unspecified; G43.909 Migraine, unspecified, not intractable, without status migrainosus; K76.0 Fatty (change of) liver, not elsewhere classified; D35.2 Benign neoplasm of pituitary gland; D25.9 Leiomyoma of uterus, unspecified; Z79.4 Long term (current) use of insulin

== ENCOUNTER 2017-03-14 20:23 | Inpatient (IN) | payer MEDICARE, OTHER ==
[2017-03-14] MEDS ORDERED: guaiFENesin 200 mg/10 ml Syrup UD PO STA (20:50)
[2017-03-14] MEDS ORDERED: Levalbuterol 1.25 MG/3 ML Inhal Soln UD IH STA (20:51)
[2017-03-14] MEDS ORDERED: Sodium Chloride 0.9% 1,000 ML IV STA (21:20)
[2017-03-14 21:28] LABS: BASO # 0.05 K/mm3 (0.0-2.0); BASO % 0.2 % (0.0-3.0); EOS % 0.2 % (1.5-5.0); GRAN # 17.02 (1.4-6.5); GRAN % 82.6 % (50.0-68.0); HEMOGLOBIN 8.8 gm/dL (12.0-16.0); LYMPH # 2.4 (1.2-3.4); LYMPH % 11.6 % (22.0-35.0); MEAN CELL VOLUME 73.4 fL (80.0-105.0); MEAN CORPUSCULAR HEMOGLOBIN 23.2 pg (25.0-35.0); MEAN CORPUSCULAR HGB CONC 31.7 g/dl (31.0-37.0); MEAN PLATELET VOLUME 9.4 fl (7.0-11.0); MONO # 1.1 (0.1-0.6); MONO % 5.4 % (1.0-6.0); PLATELET COUNT 569 10^3/uL (120.0-450.0); RBC 3.79 10^6/uL (3.5-6.1); RED CELL DISTRIBUTION WIDTH 15.7 % (11.5-14.5); WHITE BLOOD COUNT 20.6 10^3/ul (4.5-11.0)
[2017-03-14 21:30] LABS: VENOUS BLOOD GAS BASE EXCESS 1.4 mmol/L (0.0-2.0); VENOUS BLOOD GAS PO2 43 mm/Hg (30-55); VENOUS BLOOD PH 7.39 (7.32-7.43)
[2017-03-14 21:40] LABS: ALB/GLOB RATIO 0.9 (1.1-1.8); ALBUMIN 3.4 g/dL (3.0-4.8); ALT/SGPT 23 U/L (7-56); AST/SGOT 36 U/L (15-39); BLOOD UREA NITROGEN 14 mg/dL (7-21); CALCIUM 9.6 mg/dL (8.4-10.5); GFR AFRICAN-AMERICAN > 60; GFR NON-AFRICAN AMERICAN > 60; MAGNESIUM 1.6 mg/dL (1.7-2.2)
--- NOTE | 2017-03-14 21:40 | ED PDOC ---
Arrival/HPI - General Chief Complaint: Shortness Of Breath Time Seen by Provider: 03/14/17 20:24 Historian: Patient - History of Present Illness Narrative History of Present Illness (Text): 03/14/17 20:24 Polina Qiu is a 46 year old female, whose past medical history includes hypertension, diabetes, hyperlipidemia, asthma, SLE, recently diagnosed severe dilated cardiomyopathy and LV thrombus with EF of 15%, presents to the emergency department for evaluation of 3 day duration of left leg pain. Patient also complains of a cough with blood tinged sputum production and mild shortness of breath since last night. Patient also reports of post-tussive emesis, and notes of subjective fever and chills. Denies headache, dizziness, chest pain, abdominal pain, diarrhea, urinary symptoms, or any other complaints at this time. Past Medical History - Provider Review Nursing Documentation Reviewed: Yes - Infectious Disease Hx of Infectious Diseases: None - Cardiac Hx Cardiac Disorders: No Hx Angina: No Hx Cardiac Arrhythmia: No Hx Circulatory Problems: No Hx Congestive Heart Failure: No Hx Heart Murmur: No Hx Heart Transplant: No Hx Hypertension: Yes Hx Internal Defibrillator: No Hx Mitral Valve Prolapse: No Hx Pacemaker: No Hx Peripheral Edema: No Hx Peripheral Vascular Disease: No Other/Comment: external defib: Life Vest. Clot in heart - Pulmonary Hx Respiratory Disorders: Yes Hx Asthma: Yes Hx Bronchitis: Yes Hx Chronic Obstructive Pulmonary Disease (COPD): No Hx Emphysema: No Hx Pneumonia: Yes Hx Respiratory Aspiration: No Hx Respiratory Tract Infection: No Hx Sleep Apnea: No Hx Tuberculosis: No - Neurological Hx Neurological Disorder: Yes Hx Alzheimer's Disease: No HX Cerebrovascular Accident: No Hx Dementia: No Hx Dizziness: No Hx Meningitis: No Hx Migraine: Yes Hx Parkinson's Disease: No Hx Seizures: No Hx Transient Ischemic Attacks (TIA): No - HEENT Hx HEENT Disorder: No Hx Blind: No Hx Cataracts: No Hx Deafness: No Hx Difficulty Chewing: No Hx Epistaxis: No Hx Glaucoma: No Hx Macular Degeneration: No - Renal Hx Renal Disorder: No Hx Dialysis: No Hx Kidney Stones: No Hx Neurogenic Bladder: No Hx Pyelonephritis: No Hx Renal Cancer: No Hx Renal Failure: No - Endocrine/Metabolic Hx Endocrine Disorders: Yes Hx Adrenal Cancer: No Hx Diabetes Insipidus: No Hx Diabetes Mellitus Type 1: No Hx Diabetes Mellitus Type 2: Yes Hx Hyperthyroidism: No Hx Hypothyroidism: No Hx Systemic Lupus Erythematosus: Yes - Hematological/Oncological Hx Blood Disorders: No Hx AIDS: No Hx Anemia: No Hx Cancer: No Hx Chemotherapy: No Hx Cirrhosis: No Hx Hemophilia: No Hx Hepatitis A: No Hx Hepatitis B: No Hx Hepatitis C: No Hx Metastasis: No Hx Shingles: No Hx Sickle Cell Disease: No Hx Unexplained Bleeding: No - Integumentary Hx Dermatological Disorder: No Hx Basal Cell Carcinoma: No Hx Eczema: No Hx Melanoma: No Hx Psoriasis: No Hx Squamous Cell Carcinoma: No - Musculoskeletal/Rheumatological Hx Musculoskeletal Disorders: Yes Hx Arthritis: No Hx Back Pain: Yes Hx Degenerative Joint Disease: Yes Hx Falls: Yes Hx Fractures: No Hx Gout: No Hx Herniated Disk: No Hx Myasthenia Gravis: No Hx Osteoarthritis: No Hx Osteomyelitis: No Hx Osteoporosis: No Hx Rhabdomyolysis: No Hx Spinal Stenosis: Yes Hx Unsteady Gait: No - Gastrointestinal Hx Gastrointestinal Disorders: No Hx Colostomy: No Hx Crohn's Disease: No Hx Diverticulitis: No Hx Gall Bladder Disease: No Hx Gastroesophageal Reflux: No Hx Ileostomy: No Hx Liver Failure: No Hx Pancreatitis: No HX Swallowing Problems: No - Genitourinary/Gynecological Hx Genitourinary Disorders: No Hx Hematuria: No Hx Incontinence: No Hx Sexually Transmitted Diseases: No - Psychiatric Hx Psychophysiologic Disorder: No Hx Anxiety: No Hx Bipolar Disorder: No Hx Depression: No Hx Emotional Abuse: No Hx Hallucinations: No Hx Panic Disorder: No Hx Post Traumatic Stress Disorder: No Hx Psychosis: No Hx Physical Abuse: No Hx Schizophrenia: No Hx Sexual Abuse: No Hx Substance Use: No - Surgical History Other/Comment: Eptopic Preg - Anesthesia Hx Anesthesia: Yes Hx Anesthesia Reactions: No Family/Social History - Physician Review Nursing Documentation Reviewed: Yes Family/Social History: No Known Family HX Smoking Status: Never Smoked Hx Alcohol Use: Yes (SOCIALLY) Hx Substance Use: No Allergies/Home Meds Allergies/Adverse Reactions: Allergies No Known Allergies Allergy (Verified 03/14/17 20:31) Home Medications: Home Meds Medication Instructions Recorded Confirmed Albuterol/Ipratropium [Combivent 1 puff IH QID PRN 06/09/16 03/14/17 Respimat] Atorvastatin [Lipitor] 20 mg PO HS 06/09/16 03/14/17 Azilsartan Medoxomil [Edarbi] 80 mg PO DAILY 06/09/16 03/14/17 Colchicine [Colcrys] 0.6 mg PO DAILY 06/09/16 03/14/17 Diclofenac Sodium [Voltaren] 1 % TOP TID 06/09/16 03/14/17 Dulaglutide [Trulicity] 1.5 mg SC QWK 06/09/16 03/14/17 Empagliflozin [Jardiance] 10 mg PO DAILY 06/09/16 03/14/17 Furosemide [Lasix] 40 mg PO DAILY 06/09/16 03/14/17 Gabapentin Enacarbil [Horizant] 600 mg PO BID 06/09/16 03/14/17 Hydroxychloroquine Sulfate 200 mg PO BID 06/09/16 03/14/17 Insulin Glargine,Hum.rec.anlog 300 unit SQ DIN 06/09/16 03/14/17 [Toujeo Solostar] Insulin Lispro [Humalog Kwikpen 20 units INJ DAILY 06/09/16 03/14/17 U-100] Linagliptin/Metformin HCl 1 tab PO BID 06/09/16 03/14/17 [Jentadueto 2.5 mg-1000 mg Tab] Olopatadine HCl [Pazeo] 0.7 drop BOTHEYES DAILY 06/09/16 03/14/17 Pyridoxine HCl (Vitamin B6) 25 mg PO DAILY 06/09/16 03/14/17 [B-Roseanne] acetaZOLAMIDE [Acetazolamide] 500 mg PO BID 06/09/16 03/14/17 diltiaZEM CD [Cardizem CD] 120 mg PO DAILY 06/09/16 03/14/17 Tiotropium Br/Olodaterol HCl 2.5 mcg IH DAILY 02/09/17 03/14/17 [Stiolto Respimat Inhal Thayer] Sacubitril/Valsartan [Entresto 24 1 each PO BID 03/14/17 03/14/17 mg-26 mg Tablet] Review of Systems - Physician Review All systems were reviewed & negative as marked: Yes - Review of Systems Constitutional: Fevers (subjective fever) Respiratory: SOB (mild shortness of breath), Cough, Sputum (blood tinged ) Cardiovascular: absent: Chest Pain Gastrointestinal: Vomiting (post-tussive). absent: Abdominal Pain, Diarrhea, Nausea Musculoskeletal: Other (left leg pain ) Neurological: Normal. absent: Headache, Dizziness Endocrine: Polyuria, Polydipsia Psychiatric: Normal Physical Exam Vital Signs Reviewed: Yes Vital Signs Temp Pulse Resp BP Pulse Ox 03/14/17 21:37 101.1 F H 03/14/17 20:49 24 92 L 03/14/17 20:38 101.1 F H 127 H 24 118/72 92 L Temperature: Febrile Blood Pressure: Normal Pulse: Tachycardic Respiratory Rate: Tachypneic Appearance: Positive for: Ill-Appearing Pain Distress: None Mental Status: Positive for: Alert and Oriented X 3 - Systems Exam Head: Present: Atraumatic, Normocephalic Pupils: Present: PERRL Conjunctiva: Present: Normal Mouth: Present: Moist Mucous Membranes Pharnyx: Present: Normal. No: ERYTHEMA, EXUDATE Neck: No: JVD Respiratory/Chest: Present: Decreased Breath Sounds (R side), Other (Tubular breath sounds right lung base ). No: Respiratory Distress, Accessory Muscle Use Cardiovascular: Present: Normal S1, S2, Tachycardic. No: Murmurs Abdomen: Present: Normal Bowel Sounds. No: Tenderness, Distention, Peritoneal Signs, Rebound, Guarding Upper Extremity: Present: Normal Inspection. No: Cyanosis, Edema Lower Extremity: Present: Normal Inspection, NORMAL PULSES, Neurovascularly Intact, Capillary Refill < 2 s. No: Edema, CALF TENDERNESS, Tenderness, Swelling, Erythema Neurological: Present: GCS=15, CN II-XII Intact, Speech Normal, Motor Func Grossly Intact, Normal Sensory Function Skin: Present: Warm, Dry, Normal Color. No: Rashes Psychiatric: Present: Alert, Oriented x 3, Normal Insight, Normal Concentration Medical Decision Making ED Course and Treatment: 03/14/17 21:44 Impression: A 46 year old female who presents to the emergency department for evaluation of left leg pain for three days. Patient also complains of cough with blood tinged sputum production. Differential Diagnosis include but are not limited to: DVT/PE vs. CHF vs. pneumonia vs. effusion Plan: -- EKG -- Labs, cardiac enzymes -- Chest X-ray -- Blood culture -- Urine culture -- US LE -- Urinalysis -- Reassess and disposition Progress Notes: 03/14/17 21:48 EKG interpreted by me: Sinus Tachycardia @ 129 bpm. Borderline left axis deviation. normal interval. New T wave inversions laterally compared to previous EKG on 02/10/2017 03/14/17 21:49 Patient with elevated lactate of 3.4, persistently tachycardic and febrile. Code sepsis called. Hematocrit of 27 which is a drop from 40 during last visit. 03/14/17 22:00 Case discussed with , caretaker grounds, who is aware and accepts patient to the ICU under hospitalist service for sepsis and pleural effusion. 03/14/17 22:55 Patient with noted history presenting with fever and tachycardia. CXR showing large R sided pleural effusion. Given leukocytosis and lactic acidosis with fever, infectious origin is higher on the differential. Code sepsis was called for patient. She was given IV antibiotics and IVF. Full code sepsis protocol was held due to recent cath showing EF of 15%. LE doppler is pending. Coags are pending as well. If doppler shows DVT or INR is subtherapeutic, the patient will need CTA of the chest. - Critical Care Critical Care Minutes: 45 minutes - Lab Interpretations Lab Results: 03/14/17 21:10 03/14/17 21:10 Lab Results 03/14/17 21:10: Sodium 132, Chloride 97 L, Potassium 4.1, Carbon Dioxide 26, Anion Gap 13, BUN 14, Creatinine 0.9, Est GFR ( Amer) > 60, Est GFR (Non- Af Amer) > 60, Random Glucose 418 H* D, Calcium 9.6, Phosphorus 3.2, Magnesium 1.6 L, Total Bilirubin 0.8, AST 36, ALT 23, Alkaline Phosphatase 130, Lactate Dehydrogenase 500, Total Creatine Kinase 46, Troponin I 0.03 D, NT-Pro-B Natriuret Pep 536 H, Total Protein 7.0, Albumin 3.4, Globulin 3.6, Albumin/ Globulin Ratio 0.9 L 03/14/17 21:10: pO2 43, VBG pH 7.39, VBG pCO2 44.0, VBG HCO3 26.6, VBG Total CO2 28.0, VBG O2 Sat (Calc) 81.2 H, VBG Base Excess 1.4, VBG Potassium 4.2, Sodium 132.0, Chloride 101.0, Glucose 437 H*, Lactate 3.4 H, FiO2 21.0, Venous Blood Potassium 4.2 03/14/17 21:10: WBC 20.6 H D, RBC 3.79, Hgb 8.8 L, Hct 27.8 L, MCV 73.4 L, MCH 23.2 L, MCHC 31.7, RDW 15.7 H, Plt Count 569 H, MPV 9.4, Gran % 82.6 H, Lymph % (Auto) 11.6 L, [place] % (Auto) 5.4, Eos % (Auto) 0.2 L, Baso % (Auto) 0.2, Gran # 17.02 H, Lymph # 2.4, [place] # 1.1 H, Eos # 0.0, Baso # 0.05, Neutrophils % ( Manual) 86 H, Band Neutrophils % 1, Lymphocytes % (Manual) 7 L, Monocytes % ( Manual) 6, Platelet Evaluation High, Polychromasia Slight, Hypochromasia Slight , ESR 75 H - RAD Interpretation Radiology Orders: 03/14/17 20:39 CHEST PORTABLE [RAD] Stat 03/14/17 21:01 DUPLEX LOWER EXTRM VEIN BILAT [US] Stat - Medication Orders Current Medication Orders: Vancomycin HCl (Vancomycin 1gm) 1 gm in 250 mls @ 167 mls/hr IVPB STAT STA PRN Reason: Protocol Stop: 03/14/17 23:22 Last Admin: 03/14/17 22:22 Dose: 167 mls/hr Discontinued Medications Acetaminophen (Tylenol 325mg Tab) 975 mg PO STAT STA Stop: 03/14/17 20:51 Last Admin: 03/14/17 21:37 Dose: 975 mg Famotidine (Pepcid) 20 mg IVP STAT STA Stop: 03/14/17 20:52 Last Admin: 03/14/17 21:38 Dose: 20 mg Guaifenesin (Robitussin) 400 mg PO ONCE STA Stop: 03/14/17 20:51 Last Admin: 03/14/17 21:38 Dose: 400 mg Sodium Chloride (Sodium Chloride 0.9%) 1,000 mls @ 999 mls/hr IV .Q1H1M STA Stop: 03/14/17 22:20 Last Admin: 03/14/17 21:39 Dose: 999 mls/hr Cefepime HCl (Maxipime 1gm) 1 gm in 100 mls @ 100 mls/hr IVPB STAT STA PRN Reason: Protocol Stop: 03/14/17 22:48 Levalbuterol HCl (Xopenex) 1.25 mg IH STAT STA Stop: 03/14/17 20:52 Last Admin: 03/14/17 21:38 Dose: 1.25 mg Ondansetron HCl (Zofran Inj) 4 mg IVP STAT STA Stop: 03/14/17 20:52 Last Admin: 03/14/17 21:38 Dose: 4 mg - Scribe Statement The provider has reviewed the documentation as recorded by the Niesha Lee Provider Attestation: Provider Scribe Attestation: All medical record entries made by the Niesha were at my direction and personally dictated by me. I have reviewed the chart and agree that the record accurately reflects my personal performance of the history, physical exam, medical decision making, and the department course for this patient. I have also personally directed, reviewed, and agree with the discharge instructions and disposition. Disposition/Present on Arrival - Present on Arrival Any Indicators Present on Arrival: No History of DVT/PE: No History of Uncontrolled Diabetes: No Urinary Catheter: No History of Decub. Ulcer: No History Surgical Site Infection Following: None - Disposition Have Diagnosis and Disposition been Completed?: Yes Diagnosis: Pleural effusion, Pneumonia Disposition: HOSPITALIZED Disposition Time: 21:55 Patient Plan: Admission, ICU Condition: CRITICAL
[2017-03-14] MEDS ORDERED: Cefepime 1gm in NS 100ml 1 GM/100 ML BAG IVPB STA (21:49)
[2017-03-14 21:51] LABS: B-TYPE NATRIURETIC PEPTIDE 536 pg/mL (0-450); TROPONIN I 0.03 ng/mL
[2017-03-14] MEDS ORDERED: Vancomycin 1gm in NS 250ml 1 GM/250 ML BAG IVPB STA (21:53)
[2017-03-14 22:18] LABS: URINE BILIRUBIN NEGATIVE (NEGATIVE); URINE BLOOD LARGE (NEGATIVE); URINE GLUCOSE (UA) >=1000 mg/dL (NEGATIVE); URINE LEUKOCYTE ESTERASE TRACE Leu/uL (NEGATIVE); URINE NITRATE NEGATIVE (NEGATIVE); URINE PROTEIN 30 mg/dL (<30 mg/dL); URINE UROBILINOGEN 0.2 E.U./dL (<1 E.U./dL)
[2017-03-14 22:23] LABS: URINE APPEARANCE SL CLOUDY (CLEAR); URINE COLOR YELLOW (YELLOW)
[2017-03-14 22:26] LABS: URINE RBC TNTC /hpf (0-2)
[2017-03-14 22:27] LABS: URINE BACTERIA FEW (NEG); URINE EPITHELIAL CELLS MANY /hpf (0-5)
[2017-03-14 22:51] LABS: BAND 1 % (0-2); LYMPHOCYTE 7 % (22.0-35.0); MONOCYTE 6 % (1.0-6.0); NEUTROPHIL 86 % (50.0-70.0); PLATELET ESTIMATE HIGH (NORMAL); POLYCHROMASIA SLIGHT
[2017-03-14 22:52] LABS: HYPOCHROMIA SLIGHT
[2017-03-14] MEDS ORDERED: Vancomycin 1gm in NS 250ml 1 GM/250 ML BAG IVPB SCH (23:00)
[2017-03-14] MEDS ORDERED: Sodium Chloride 0.9% 1,000 ML IV SCH (23:00)
[2017-03-14] MEDS ORDERED: Iohexol 350 MG/100 ML VIAL ONE (23:03)
[2017-03-14] MEDS ORDERED: Magnesium Sulfate 2 GM in Sodium Chloride 0.9% 100 ML IVPB ONE (23:03)
[2017-03-14] MEDS ORDERED: Albuterol-Ipratrop 3 mg / 0.5 (3 ml) UD IH PRN (23:18)
[2017-03-15] MEDS ORDERED: Piperacillin/Tazobact 3.375 gm 100 ML IVPB SCH
[2017-03-15] MEDS ORDERED: levoFLOXacin 750 mg in D5W 750 MG/150 ML BAG IVPB SCH
[2017-03-15 00:21] LABS: VENOUS BLOOD GAS BASE EXCESS -1.7 mmol/L (0.0-2.0); VENOUS BLOOD GAS PO2 32 mm/Hg (30-55); VENOUS BLOOD PH 7.26 (7.32-7.43)
[2017-03-15 01:24] LABS: INR > 11.00 (0.93-1.08); PARTIAL THROMBOPLASTIN TIME > 180.0 Seconds (23.7-30.8); PROTHROMBIN TIME > 120.0 Seconds (9.9-11.8)
[2017-03-15] MEDS ORDERED: Phytonadione 10 MG in Sodium Chloride 0.9% 50 ML IV ONE (01:53)
[2017-03-15] MEDS ORDERED: Insulin Regular 1 UNITS/0.01 ML ML SC STA (02:43)
--- NOTE | 2017-03-15 03:23 | CP.PCM.HP ---
<Oniel Lajosué - Last Filed: 03/15/17 05:17> History of Present Illness - History of Present Illness History of Present Illness: Oniel La DO PGY-1 CC: SOB and LLE Pain HPI: Ms. Qiu is a 46 y/o AA female with a PMHx significant for HTN, IDDM, and severe dilated cardiomyopathy with CHF and LV thrombus, who presented with a c/o SOB and a 3 day duration of LLE pain. Patient stated that she woke up 3 days ago with a throbbing pain from her L ankle into her left half and up the back of her knee. Patient denied erythema, edema, or swelling. Patient also complained of a cough with blood tinged sputum and mild shortness of breath of one day duration. Patient stated that she has never had an episode like this before. When Ms. Qiu was examined, she admitted to fevers, chills, nausea and hematemesis (once on 03/13), but denied chills, headache, dizziness, abdominal pain, CP, diarrhea, complaints or any other symptoms. Ms. Qiu was given Zofran, Cefepime, Levalbuterol, Guaifenesin, Acetaminopehn , and Famotidine in the ED. PMHx: HTN, IDDM, Asthma, HLD, SLE, Dilated CM, LV Thrombus, CHF (EF=15%), Migraines, Past ectopic , Spinal Stenosis, GERD PSHx: D&C X 2 Allergies: NKDA SocHx: Denies smoking, Denies illicits; Social Drinker FamHx: Non-contributory, but HTN, CAD, DE, Renal Disease Meds: Reviewed ROS: Constitutional: +see hpi; pt denies generalized weakness ENT: +see hpi; pt denies dysphagia, ofalgia, hearing deficit, rhinorrhea Eyes: pt denies sudden loss of vision, diplopia, blurred vision MSK: +see hpi; pt denies muscle stiffness, joint pain, extremity cramping Cardio: pt denies cp, Pulm: +see hpi; pt denies wheeze GI: +see hpi; pt denies loss of appetite, abdominal pain, constipation, melena, diarrhea : pt denies burning on urination, urinary frequency, hematuria, urinary urgency Neuro: pt denies paresis, paresthesia, dizziness, simeon, numbness, tingling Derm: pt denies skin changes, lesions, nail changes Endo: pt denies intolerance to heat/cold, diaphoresis, night sweats, polydipsia Psych: pt denies anxiety, depression, mood changes Present on Admission - Present on Admission Any Indicators Present on Admission: No Past Patient History - Infectious Disease Hx of Infectious Diseases: None - Past Social History Smoking Status: Never Smoked - CARDIAC Hx Cardiac Disorders: No Hx Angina: No Hx Cardia Arrhythmia: No Hx Circulatory Problems: No Hx Congestive Heart Failure: No Hx Heart Murmur: No Hx Heart Transplant: No Hx Hypercholesterolemia: Yes Hx Hypertension: Yes Hx Internal Defibrillator: No Hx Mitral Valve Prolapse: No Hx Pacemaker: No Hx Peripheral Edema: No Hx Peripheral Vascular Disease: No Other/Comment: external defib: Life Vest. Clot in heart - PULMONARY Hx Respiratory Disorders: Yes Hx Asthma: Yes Hx Bronchitis: Yes Hx Chronic Obstructive Pulmonary Disease (COPD): No Hx Emphysema: No Hx Pneumonia: Yes Hx Respiratory Aspiration: No Hx Respiratory Tract Infection: No Hx Sleep Apnea: No Hx Tuberculosis: No - NEUROLOGICAL Hx Neurological Disorder: Yes Hx Alzheimer's Disease: No HX Cerebrovascular Accident: No Hx Dementia: No Hx Dizziness: No Hx Meningitis: No Hx Migraine: Yes Hx Parkinson's Disease: No Hx Seizures: No Hx Transient Ischemic Attacks (TIA): No - HEENT Hx HEENT Problems: No Hx Blind: No Hx Cataracts: Yes (bilat cataract sx jun 2016) Hx Deafness: No Hx Difficulty Chewing: No Hx Epistaxis: No Hx Glaucoma: No Hx Macular Degeneration: No - RENAL Hx Chronic Kidney Disease: No Hx Dialysis: No Hx Kidney Stones: No Hx Neurogenic Bladder: No Hx Pyelonephritis: No Hx Renal (Kidney) Cancer: No Hx Renal Failure: No - ENDOCRINE/METABOLIC Hx Endocrine Disorders: Yes Hx Adrenal Cancer: No Hx Diabetes Insipidus: No Hx Diabetes Mellitus Type 1: No Hx Diabetes Mellitus Type 2: Yes Hx Hyperthyroidism: No Hx Hypothyroidism: No Hx Systemic Lupus Erythematosus: Yes Other/Comment: pituitary adenoma - HEMATOLOGICAL/ONCOLOGICAL Hx Blood Disorders: No Hx AIDS: No Hx Anemia: No Hx Cancer: No Hx Chemotherapy: No Hx Cirrhosis: No Hx Hemophilia: No Hx Hepatitis A: No Hx Hepatitis B: No Hx Hepatitis C: No Hx Human Immunodeficiency Virus (HIV): No Hx Metastesis: No Hx Shingles: No Hx Sickle Cell Disease: No Hx Unexplained Bleeding: No - INTEGUMENTARY Hx Dermatological Problems: No Hx Basil Cell: No Hx Eczema: No Hx Melanoma: No Hx Psoriasis: No Hx Squamous Cell: No - MUSCULOSKELETAL/RHEUMATOLOGICAL Hx Musculoskeletal Disorders: Yes Hx Arthritis: No Hx Back Pain: Yes Hx Degenerative Joint Disease: Yes Hx Falls: Yes Hx Fractures: No Hx Gout: No Hx Herniated Disk: No Hx Myasthenia Gravis: No Hx Osteoarthritis: No Hx Osteomyelitis: No Hx Osteoporosis: No Hx Rhabdomyolysis: No Hx Spinal Stenosis: Yes Hx Unsteady Gait: No - GASTROINTESTINAL Hx Gastrointestinal Disorders: No Hx Colostomy: No Hx Crohn's Disease: No Hx Diverticulitis: No Hx Gall Bladder Disease: No Hx Gastroesophageal Reflux: No Hx Ileostomy: No Hx Liver Failure: No Hx Pancreatitis: No HX Swallowing Problems: No Hx Ulcer: No - GENITOURINARY/GYNECOLOGICAL Hx Genitourinary Disorders: No Hx Hematuria: No Hx Incontinence: No Hx Sexually Transmitted Disorders: No Other/Comment: ectopic then tubal ligation - PSYCHIATRIC Hx Psychophysiologic Disorder: No Hx Anxiety: No Hx Bipolar Disorder: No Hx Depression: No Hx Emotional Abuse: No Hx Hallucinations: No Hx Panic Symptoms: No Hx Paranoia: No Hx Post Traumatic Stress Disorder: No Hx Psychosis: No Hx Physical Abuse: No Hx Schizophrenia: No Hx Sexual Abuse: No - SURGICAL HISTORY Hx Surgeries: Yes Hx Cardiac Catheterization: No Hx Coronary Stent: No Other/Comment: Eptopic Preg - ANESTHESIA Hx Anesthesia: Yes Hx Anesthesia Reactions: No Meds Allergies/Adverse Reactions: Allergies Allergy/AdvReac Type Severity Reaction Status Date / Time No Known Allergies Allergy Verified 03/14/17 20:31 Physical Exam - Constitutional Additional comments: Physical Exam: VS: As above Constitutional: obese female, a&o x 4, mild distress Head and Neck: neck supple, no jvd, trachea midline, carotid midline, no cervical/head mass Eyes: arina, nonicteric sclera, eom intact ENT: auditory acuity grossly intact, throat not congested, no nasal deformity Cardio: rrr, no m/r/g, no carotid bruit, nml s1, s2 Pulm: +diminished breath sounds on right side; no accessory muscle use, ctab Abd: s/nt/nd, nbs x 4 q, no palpable masses Derm: no rashes, no ulcers, no lesions Extr: +TTP on LLE; no edema, no cyanosis, no calf tenderness, no lesions, no varicosities Neuro: cn II-XII grossly intact, ue and le 3+ muscle strength bilaterally, no los ue, le bilaterally and core Results - Vital Signs Recent Vital Signs: Last Vital Signs Temp 98 F 03/15/17 01:50 Pulse 104 H 03/15/17 03:00 Resp 34 H 03/15/17 03:00 BP 124/83 03/15/17 03:00 Pulse Ox 97 03/15/17 03:00 - Labs Result Diagrams: 03/14/17 21:10 03/14/17 21:10 Labs: Laboratory Results - last 24 hr 03/14/17 03/15/17 03/15/17 22:00 00:00 00:00 PT > 120.0 H* INR > 11.00 H* APTT > 180.0 H* pO2 32 VBG pH 7.26 L VBG pCO2 59.0 VBG HCO3 26.5 VBG Total CO2 28.3 H VBG O2 Sat (Calc) 50.5 VBG Base Excess -1.7 L VBG Potassium 4.4 Sodium 135.0 Chloride 103.0 Glucose 378 H Lactate 4.1 H* FiO2 21.0 Lactic Acid Venous Blood Potassium 4.4 Urine Color Yellow Urine Appearance Sl cloudy Urine pH 6.0 Ur Specific [place] >= 1.030 Urine Protein 30 H Urine Glucose (UA) >=1000 Urine Ketones 15 H Urine Blood Large H Urine Nitrate Negative Urine Bilirubin Negative Urine Urobilinogen 0.2 Ur Leukocyte Esterase Trace H Urine RBC Tntc Urine WBC 5 - 10 Ur Epithelial Cells Many Urine Bacteria Few 03/15/17 00:00 PT INR APTT pO2 VBG pH VBG pCO2 VBG HCO3 VBG Total CO2 VBG O2 Sat (Calc) VBG Base Excess VBG Potassium Sodium Chloride Glucose Lactate FiO2 Lactic Acid 3.5 H Venous Blood Potassium Urine Color Urine Appearance Urine pH Ur Specific [place] Urine Protein Urine Glucose (UA) Urine Ketones Urine Blood Urine Nitrate Urine Bilirubin Urine Urobilinogen Ur Leukocyte Esterase Urine RBC Urine WBC Ur Epithelial Cells Urine Bacteria Assessment & Plan - Assessment and Plan (Free Text) Assessment: A/P: Ms. Qiu is a 46 y/o AA female with a PMHx significant for HTN, IDDM, and severe dilated cardiomyopathy with CHF and LV thrombus, who presented with a c/ o SOB and a 3 day duration of LLE pain 1.) Sepsis 2/2 Infected Right Pleural Effusion VS Pneumonia VS Unknown Etiology - Admit to ICU - q1 Vitals - ID Consult - Culture pleural effusion - CT Chest - Acetaminophen - Levofloxacin - Vancomycin - Continue Zosyn pending ID recs 2.) Anemia 2/2 GIB VS Menorrhagia VS Unknown Etiology - Trend H&H - FOBT + - CT Abdomen - Blood Type and Screen 3.) LLE Pain 2/2 DVT VS Unknown Etiology - LE Doppler - Monitor pain, vitals (O2 sat and HR) 4.) H/O IDDM - Continue Insulin Lispro 5.) H/O Dilated CM, LV Thrombus, CHF (EF=15%) - Gentle fluids - Continue Coumadin 6.) H/O HTN - Monitor BP - Hold BP medications, patient has a sepsis diagnosis 7.) H/O Asthma - Continue Levalbuterol 8.) H/O HLD - F/U outpatient 9.) H/O SLE - F/U outpatient 10.) H/O Migraines -F/U outpatient 11.) H/O Spinal Stenosis - F/U outpatient 12.) H/O GERD - Continue pantoprazole <Carolyn ALDANA,Dylon - Last Filed: 03/15/17 06:58> Results - Vital Signs Recent Vital Signs: Last Vital Signs Temp 98 F 03/15/17 04:00 Pulse 104 H 03/15/17 06:30 Resp 32 H 03/15/17 06:30 BP 93/69 L 03/15/17 06:00 Pulse Ox 100 03/15/17 06:30 - Labs Result Diagrams: 03/14/17 21:10 03/14/17 21:10 Labs: Laboratory Results - last 24 hr 03/14/17 03/15/17 03/15/17 22:00 00:00 00:00 PT > 120.0 H* INR > 11.00 H* APTT > 180.0 H* pCO2 pO2 32 HCO3 ABG pH ABG Total CO2 ABG O2 Saturation ABG O2 Content ABG Base Excess ABG Hemoglobin ABG Carboxyhemoglobin POC ABG HHb (Measured) ABG Methemoglobin ABG O2 Capacity VBG pH 7.26 L VBG pCO2 59.0 VBG HCO3 26.5 VBG Total CO2 28.3 H VBG O2 Sat (Calc) 50.5 VBG Base Excess -1.7 L VBG Potassium 4.4 Hgb O2 Saturation Sodium 135.0 Chloride 103.0 Glucose 378 H Lactate 4.1 H* FiO2 21.0 Lactic Acid Venous Blood Potassium 4.4 Urine Color Yellow Urine Appearance Sl cloudy Urine pH 6.0 Ur Specific [place] >= 1.030 Urine Protein 30 H Urine Glucose (UA) >=1000 Urine Ketones 15 H Urine Blood Large H Urine Nitrate Negative Urine Bilirubin Negative Urine Urobilinogen 0.2 Ur Leukocyte Esterase Trace H Urine RBC Tntc Urine WBC 5 - 10 Ur Epithelial Cells Many Urine Bacteria Few Blood Type Antibody Screen Crossmatch BBK History Checked 03/15/17 03/15/17 03/15/17 00:00 01:45 06:00 PT INR APTT pCO2 43 pO2 85.0 HCO3 26.0 ABG pH 7.39 ABG Total CO2 27.3 ABG O2 Saturation 99.2 H ABG O2 Content 9.9 L ABG Base Excess 0.9 ABG Hemoglobin 7.2 L ABG Carboxyhemoglobin 2.3 H POC ABG HHb (Measured) 0.8 ABG Methemoglobin 0.3 ABG O2 Capacity 10.0 L VBG pH VBG pCO2 VBG HCO3 VBG Total CO2 VBG O2 Sat (Calc) VBG Base Excess VBG Potassium Hgb O2 Saturation 96.6 Sodium Chloride Glucose Lactate FiO2 28.0 Lactic Acid 3.5 H Venous Blood Potassium Urine Color Urine Appearance Urine pH Ur Specific [place] Urine Protein Urine Glucose (UA) Urine Ketones Urine Blood Urine Nitrate Urine Bilirubin Urine Urobilinogen Ur Leukocyte Esterase Urine RBC Urine WBC Ur Epithelial Cells Urine Bacteria Blood Type B POSITIVE Antibody Screen Negative Crossmatch See Detail BBK History Checked Patient has bt Attending/Attestation - Attestation I have personally seen and examined this patient.: Yes I have fully participated in the care of the patient.: Yes I have reviewed all pertinent clinical information: Yes Notes (Text): 03/15/17 06:56 -I agree with the above H&P completed by the resident physician with the following additions and/or changes: The patient is a 46 year old AAF with a history of SLE, HTN IDDM, morbid obesity , dilated cardiomyopathy (EF=15%) and LV thrombus (on Coumadin), being admitted to the ICU with sepsis, likely due to a large, infected right pleural effusion, acute symptomatic anemia and a supratherapeutic INR. An ultrasound-guided right thoracentesis (diagnostic and therapeutic) has been ordered. Given her recent admission to [facility] about 3 weeks ago, empiric treatment for healthcare-associated pneumonia will be initiated (with empiric IV Zosyn, Vanco and Levaquin). Overnight, the patient will be placed on Bipap therapy to help reduce her work of breathing from the significant right-sided pleural effusion. Also, she will receive 3units of FFPs (and 1 dose of IV Vitamin K) overnight to help reduce the patients markedly supratherapeutic INR of 11.0 (in preparation for the urgent thoracentesis). Of note, compared to her recent admission about 3 weeks ago, her hemoglobin has dropped from 13.3 down to 8.8. She denies any black or bloody stool and has no obvious sources of bleeding to account for this large drop. Given her severe cardiomyopathy, 2units of PRBCs have also been ordered. Since arrival to the ED, the patient has been hemodynamically stable for the most part, with O2 sats in the mid-upper 90s on 2-3L of oxygen via NC. A procalcitonin level has been ordered as well as a repeat ABG and INR. ID consult has also been placed. For her IDDM, she will be placed on Insulin Lispro -medium dose (with accu-checks ACHS). All of the patients home BP meds will be held.
[2017-03-15 03:28] VITALS: BMI 40.7
[2017-03-15] MEDS ORDERED: Morphine 2 mg/ml ISec IVP STA ×2 (04:40→16:11)
[2017-03-15 06:15] LABS: ARTERIAL BLOOD GAS HEMOGLOBIN 7.2 g/dL (11.7-17.4); ARTERIAL BLOOD GAS O2 CONTENT 9.9 ML/dl (15-23); ARTERIAL BLOOD GAS O2 SAT 99.2 % (95-98); ARTERIAL BLOOD GAS PCO2 43 mm/Hg (35-45); ARTERIAL BLOOD GAS PH 7.39 (7.35-7.45); ARTERIAL BLOOD GAS TCO2 27.3 mmol.L (22-28)
[2017-03-15] MEDS: Insulin Lispro (humaLOG) MEDIUM Coverage SC SCH ×2 (08:20→12:49)
[2017-03-15] MEDS: Cefepime IV 2 gm in NS 2 GM/100 ML BAG IVPB SCH ×2 (09:04→15:35)
--- NOTE | 2017-03-15 09:27 | RAD ---
HISTORY: cough, sob COMPARISON: 12/16/2016 FINDINGS: LUNGS: No active pulmonary disease. PLEURA: There is a large right pleural effusion CARDIOVASCULAR: Normal. OSSEOUS STRUCTURES: No significant abnormalities. VISUALIZED UPPER ABDOMEN: Normal. OTHER FINDINGS: None. IMPRESSION: Large right pleural effusion
--- NOTE | 2017-03-15 09:28 | CARD ---
APPROVED REPORT EKG Measurement Heart [id number] <Conclusion> Sinus tachycardia Nonspecific T wave abnormality Abnormal ECG
[2017-03-15] MEDS: Morphine 2 mg/ml ISec IVP PRN ×2 (09:38→15:45)
[2017-03-15 09:39] LABS: BASO # 0.02 K/mm3 (0.0-2.0); BASO % 0.1 % (0.0-3.0); EOS # 0.2 (0.0-0.7); EOS % 1.3 % (1.5-5.0); GRAN # 9.08 (1.4-6.5); GRAN % 64.8 % (50.0-68.0); LYMPH # 3.5 (1.2-3.4); LYMPH % 24.8 % (22.0-35.0); MEAN CELL VOLUME 74.2 fL (80.0-105.0); MEAN CORPUSCULAR HEMOGLOBIN 22.9 pg (25.0-35.0); MEAN CORPUSCULAR HGB CONC 30.9 g/dl (31.0-37.0); MEAN PLATELET VOLUME 8.7 fl (7.0-11.0); MONO # 1.3 (0.1-0.6); PLATELET COUNT 411 10^3/uL (120.0-450.0); RED CELL DISTRIBUTION WIDTH 15.7 % (11.5-14.5)
[2017-03-15] MEDS: Vancomycin 1gm in NS 250ml 1 GM/250 ML BAG IVPB SCH ×2 (09:39→21:18)
[2017-03-15 09:53] LABS: INR 1.61 (0.93-1.08); PARTIAL THROMBOPLASTIN TIME 44.2 Seconds (23.7-30.8); PROTHROMBIN TIME 17.4 Seconds (9.9-11.8)
[2017-03-15 09:56] LABS: HEMOGLOBIN 7.1 gm/dL (12.0-16.0)
[2017-03-15] MEDS ORDERED: cefTRIAXone 1 gm 1 GM/100 ML BAG IVPB SCH (10:00)
[2017-03-15 10:06] LABS: TROPONIN I 0.04 ng/mL
[2017-03-15 10:14] LABS: ALBUMIN 3.3 g/dL (3.0-4.8); ALT/SGPT 27 U/L (7-56); AST/SGOT 26 U/L (15-39); BLOOD UREA NITROGEN 15 mg/dL (7-21); CALCIUM 9.1 mg/dL (8.4-10.5); GFR AFRICAN-AMERICAN > 60; GFR NON-AFRICAN AMERICAN > 60; MAGNESIUM 2.3 mg/dL (1.7-2.2)
--- NOTE | 2017-03-15 10:26 | CT ---
PROCEDURE: CT Chest with contrast HISTORY: evaluate severity of pleural effusion COMPARISON: 02/09/2017 CT of the chest TECHNIQUE: Contiguous axial images were obtained through the chest with intravenous contrast enhancement. Sagittal and coronal reconstructions were performed. IV contrast: 100 cc of Omni 350 Radiation dose (DLP): 674 mGy-cm. This CT exam was performed using one or more of the following dose reduction techniques: Automated exposure control, adjustment of the mA and/or kV according to patient size, and/or use of iterative reconstruction technique. FINDINGS: LUNGS: There is a large right-sided pleural effusion. There is dense consolidation of the right lung. There is no evidence of an endobronchial lesion. MEDIASTINUM: Unremarkable thoracic aorta. No aneurysm or dissection. Normal sized heart. Main pulmonary artery unremarkable. No vascular congestion. No lymphadenopathy. PLEURA: As above BONES: No fracture. No destructive lesion. UPPER ABDOMEN: Grossly unremarkable. OTHER FINDINGS: None. IMPRESSION: Large right pleural effusion and consolidation of the underlying lung. No evidence of endobronchial lesion
--- NOTE | 2017-03-15 10:39 | CP.PCM.CON ---
History of Present Illness - History of Present Illness History of Present Illness: 46 year old female with with PMH of systemic lupus erythematosus, morbid obesity with BMI 41, DM, asthma, history of migraine headaches, history of spinal stenosis, history of ectopic was brought in to [facility] because of worsening shortness of breath and right sided chest pain for the past 2-3 days, associated with dry cough. She denies fever or chills, no nausea or vomiting, no headache or dizziness, no sore throat, no vomiting, no chest pain, no SOB, no cough or colds, no diarrhea, no dysuria, no groin pain, no bleeding. She states that the SOB had a sudden onset, but it gradually got worse over the next few days. In the ED, the patient underwent CT chest which showed a large right sided pleural effusion. Infectious Diseases consult is requested to further evaluate and manage. Review of Systems - Review of Systems All systems: reviewed and no additional remarkable complaints except (as per HPI ) Past Patient History - Infectious Disease Hx of Infectious Diseases: None - Past Social History Smoking Status: Never Smoked - CARDIAC Hx Cardiac Disorders: No Hx Angina: No Hx Cardia Arrhythmia: No Hx Circulatory Problems: No Hx Congestive Heart Failure: No Hx Heart Murmur: No Hx Heart Transplant: No Hx Hypercholesterolemia: Yes Hx Hypertension: Yes Hx Internal Defibrillator: No Hx Mitral Valve Prolapse: No Hx Pacemaker: No Hx Peripheral Edema: No Hx Peripheral Vascular Disease: No Other/Comment: external defib: Life Vest. Clot in heart - PULMONARY Hx Respiratory Disorders: Yes Hx Asthma: Yes Hx Bronchitis: Yes Hx Chronic Obstructive Pulmonary Disease (COPD): No Hx Emphysema: No Hx Pneumonia: Yes Hx Respiratory Aspiration: No Hx Respiratory Tract Infection: No Hx Sleep Apnea: No Hx Tuberculosis: No - NEUROLOGICAL Hx Neurological Disorder: Yes Hx Alzheimer's Disease: No HX Cerebrovascular Accident: No Hx Dementia: No Hx Dizziness: No Hx Meningitis: No Hx Migraine: Yes Hx Parkinson's Disease: No Hx Seizures: No Hx Transient Ischemic Attacks (TIA): No - HEENT Hx HEENT Problems: No Hx Blind: No Hx Cataracts: Yes (bilat cataract sx jun 2016) Hx Deafness: No Hx Difficulty Chewing: No Hx Epistaxis: No Hx Glaucoma: No Hx Macular Degeneration: No - RENAL Hx Chronic Kidney Disease: No Hx Dialysis: No Hx Kidney Stones: No Hx Neurogenic Bladder: No Hx Pyelonephritis: No Hx Renal (Kidney) Cancer: No Hx Renal Failure: No - ENDOCRINE/METABOLIC Hx Endocrine Disorders: Yes Hx Adrenal Cancer: No Hx Diabetes Insipidus: No Hx Diabetes Mellitus Type 1: No Hx Diabetes Mellitus Type 2: Yes Hx Hyperthyroidism: No Hx Hypothyroidism: No Hx Systemic Lupus Erythematosus: Yes Other/Comment: pituitary adenoma - HEMATOLOGICAL/ONCOLOGICAL Hx Blood Disorders: No Hx AIDS: No Hx Anemia: No Hx Cancer: No Hx Chemotherapy: No Hx Cirrhosis: No Hx Hemophilia: No Hx Hepatitis A: No Hx Hepatitis B: No Hx Hepatitis C: No Hx Human Immunodeficiency Virus (HIV): No Hx Metastesis: No Hx Shingles: No Hx Sickle Cell Disease: No Hx Unexplained Bleeding: No - INTEGUMENTARY Hx Dermatological Problems: No Hx Basil Cell: No Hx Eczema: No Hx Melanoma: No Hx Psoriasis: No Hx Squamous Cell: No - MUSCULOSKELETAL/RHEUMATOLOGICAL Hx Musculoskeletal Disorders: Yes Hx Arthritis: No Hx Back Pain: Yes Hx Degenerative Joint Disease: Yes Hx Falls: Yes Hx Fractures: No Hx Gout: No Hx Herniated Disk: No Hx Myasthenia Gravis: No Hx Osteoarthritis: No Hx Osteomyelitis: No Hx Osteoporosis: No Hx Rhabdomyolysis: No Hx Spinal Stenosis: Yes Hx Unsteady Gait: No - GASTROINTESTINAL Hx Gastrointestinal Disorders: No Hx Colostomy: No Hx Crohn's Disease: No Hx Diverticulitis: No Hx Gall Bladder Disease: No Hx Gastroesophageal Reflux: No Hx Ileostomy: No Hx Liver Failure: No Hx Pancreatitis: No HX Swallowing Problems: No Hx Ulcer: No - GENITOURINARY/GYNECOLOGICAL Hx Genitourinary Disorders: No Hx Hematuria: No Hx Incontinence: No Hx Sexually Transmitted Disorders: No Other/Comment: ectopic then tubal ligation - PSYCHIATRIC Hx Psychophysiologic Disorder: No Hx Anxiety: No Hx Bipolar Disorder: No Hx Depression: No Hx Emotional Abuse: No Hx Hallucinations: No Hx Panic Symptoms: No Hx Paranoia: No Hx Post Traumatic Stress Disorder: No Hx Psychosis: No Hx Physical Abuse: No Hx Schizophrenia: No Hx Sexual Abuse: No - SURGICAL HISTORY Hx Surgeries: Yes Hx Cardiac Catheterization: No Hx Coronary Stent: No Other/Comment: Eptopic Preg - ANESTHESIA Hx Anesthesia: Yes Hx Anesthesia Reactions: No Meds Allergies/Adverse Reactions: Allergies Allergy/AdvReac Type Severity Reaction Status Date / Time No Known Allergies Allergy Verified 03/14/17 20:31 - Medications Medications: Current Medications Acetaminophen (Tylenol 325mg Tab) 650 mg PO Q4H PRN PRN Reason: Fever >100.4 F Albuterol/Ipratropium (Duoneb 3 Mg/0.5 Mg (3 Ml) Ud) 3 ml IH Q2H PRN PRN Reason: Shortness of Breath Piperacillin Sod/Tazobactam Sod (Zosyn 3.375 In Ns 100ml) 100 mls @ 200 mls/hr IVPB Q6 ORION PRN Reason: Protocol Stop: 03/15/17 06:29 Last Admin: 03/15/17 01:30 Dose: 200 mls/hr Vancomycin HCl (Vancomycin 1gm) 1 gm in 250 mls @ 167 mls/hr IVPB Q12 ORION PRN Reason: Protocol Levofloxacin/Dextrose (Levaquin 750mg) 750 mg in 150 mls @ 100 mls/hr IVPB 0000 ORION Last Admin: 03/15/17 02:18 Dose: 100 mls/hr Insulin Human Lispro (Humalog Med) 0 units SC ACHS ORION PRN Reason: Protocol Morphine Sulfate (Morphine) 2 mg IVP Q6H PRN PRN Reason: Pain, severe (8-10) Ondansetron HCl (Zofran Inj) 4 mg IVP Q6H PRN PRN Reason: Nausea/Vomiting Pantoprazole Sodium (Protonix Inj) 40 mg IVP 0600 [facility] Physical Exam - Constitutional Appears: Other (on BiPAP, with some respiratory distress) - Head Exam Head Exam: NORMAL INSPECTION - Neck Exam Neck exam: Negative for: Meningismus - Respiratory Exam Respiratory Exam: Decreased Breath Sounds (especially on the right side) - Cardiovascular Exam Cardiovascular Exam: +S1, +S2 - GI/Abdominal Exam GI & Abdominal Exam: Soft. absent: Tenderness Results - Vital Signs Recent Vital Signs: Last Vital Signs Temp 98 F 03/15/17 03:00 Pulse 104 H 03/15/17 03:00 Resp 34 H 03/15/17 03:00 BP 124/83 03/15/17 03:00 Pulse Ox 97 03/15/17 03:00 - Labs Result Diagrams: 03/15/17 09:30 03/15/17 09:30 Labs: Laboratory Results - last 24 hr 03/14/17 03/15/17 03/15/17 22:00 00:00 00:00 PT > 120.0 H* INR > 11.00 H* APTT > 180.0 H* pO2 32 VBG pH 7.26 L VBG pCO2 59.0 VBG HCO3 26.5 VBG Total CO2 28.3 H VBG O2 Sat (Calc) 50.5 VBG Base Excess -1.7 L VBG Potassium 4.4 Sodium 135.0 Chloride 103.0 Glucose 378 H Lactate 4.1 H* FiO2 21.0 Lactic Acid Venous Blood Potassium 4.4 Urine Color Yellow Urine Appearance Sl cloudy Urine pH 6.0 Ur Specific [place] >= 1.030 Urine Protein 30 H Urine Glucose (UA) >=1000 Urine Ketones 15 H Urine Blood Large H Urine Nitrate Negative Urine Bilirubin Negative Urine Urobilinogen 0.2 Ur Leukocyte Esterase Trace H Urine RBC Tntc Urine WBC 5 - 10 Ur Epithelial Cells Many Urine Bacteria Few Blood Type Antibody Screen Crossmatch BBK History Checked 03/15/17 03/15/17 00:00 01:45 PT INR APTT pO2 VBG pH VBG pCO2 VBG HCO3 VBG Total CO2 VBG O2 Sat (Calc) VBG Base Excess VBG Potassium Sodium Chloride Glucose Lactate FiO2 Lactic Acid 3.5 H Venous Blood Potassium Urine Color Urine Appearance Urine pH Ur Specific [place] Urine Protein Urine Glucose (UA) Urine Ketones Urine Blood Urine Nitrate Urine Bilirubin Urine Urobilinogen Ur Leukocyte Esterase Urine RBC Urine WBC Ur Epithelial Cells Urine Bacteria Blood Type B POSITIVE Antibody Screen Negative Crossmatch See Detail BBK History Checked Patient has bt Assessment & Plan - Assessment and Plan (Free Text) Plan: Assessment Systemic Inflammatory Response Syndrome, consider due to right sided pleural effusion, etiology to be determined, rule out healthcare-associated pneumonia systemic lupus erythematosus morbid obesity with BMI 41 DM asthma history of migraine headaches history of spinal stenosis history of ectopic Plan patient has been started on Levaquin and will add Vancomycin and Cefepime pending blood cx, PCT official reading of the CT chest; would recommend thoracentesis when feasible for therapy and for pleural fluid analysis will monitor clinically
--- NOTE | 2017-03-15 11:37 | US ---
HISTORY: Leg pain and swelling. Evaluate for DVT PHYSICIAN(S): Ric Quijano MD. TECHNIQUE: Duplex sonography and color-flow Doppler with graded compression were used to evaluate the deep venous systems of both lower extremities. The exam is limited by body habitus and edema. FINDINGS: The visualized deep venous systems of both lower extremities are sonographically normal and compressible. Normal wave forms and augmentation are seen. There is no sonographic evidence for deep venous thrombosis in the visualized segments of both lower extremities. IMPRESSION: No sonographic evidence for deep venous thrombosis in the visualized segments of both lower extremities.
--- NOTE | 2017-03-15 12:01 | CP.PCM.PN ---
<Tahir,Cierra - Last Filed: 03/15/17 15:47> Subjective - Date & Time of Evaluation Date of Evaluation: 03/15/17 Time of Evaluation: 11:54 - Subjective Subjective: Patient complains of right sided chest pain Three days of acute SOB, cough with "bloody" appearing sputum, fever and LLE pain. Objective - Vital Signs/Intake and Output Vital Signs (last 24 hours): Temp Pulse Resp BP Pulse Ox 98.3 F 110 H 32 H 93/69 L 100 03/15/17 08:00 03/15/17 11:44 03/15/17 06:30 03/15/17 06:00 03/15/17 06:30 Intake and Output: 03/15/17 03/15/17 06:59 18:59 Intake Total 1500 Output Total 0 Balance 1500 - Medications Medications: Current Medications Acetaminophen (Tylenol 325mg Tab) 650 mg PO Q4H PRN PRN Reason: Fever >100.4 F Albuterol/Ipratropium (Duoneb 3 Mg/0.5 Mg (3 Ml) Ud) 3 ml IH Q2H PRN PRN Reason: Shortness of Breath Vancomycin HCl (Vancomycin 1gm) 1 gm in 250 mls @ 167 mls/hr IVPB Q12 ORION PRN Reason: Protocol Last Admin: 03/15/17 09:39 Dose: 167 mls/hr Cefepime HCl (Maxipime 2gm) 2 gm in 100 mls @ 100 mls/hr IVPB Q8 ORION PRN Reason: Protocol Stop: 03/22/17 08:16 Last Admin: 03/15/17 09:04 Dose: 100 mls/hr Insulin Human Lispro (Humalog Med) 0 units SC ACHS ORION PRN Reason: Protocol Last Admin: 03/15/17 08:20 Dose: 7 units Morphine Sulfate (Morphine) 2 mg IVP Q6H PRN PRN Reason: Pain, severe (8-10) Last Admin: 03/15/17 09:38 Dose: 2 mg Ondansetron HCl (Zofran Inj) 4 mg IVP Q6H PRN PRN Reason: Nausea/Vomiting Pantoprazole Sodium (Protonix Inj) 40 mg IVP 0600 ORION Last Admin: 03/15/17 08:14 Dose: Not Given - Labs Labs: 03/15/17 09:30 03/15/17 09:30 PT 17.4 Seconds (9.9-11.8) H 03/15/17 09:30 INR 1.61 (0.93-1.08) H 03/15/17 09:30 APTT 44.2 Seconds (23.7-30.8) H 03/15/17 09:30 - Constitutional Appears: Well, In Acute Distress - Head Exam Head Exam: ATRAUMATIC, NORMOCEPHALIC - Eye Exam Eye Exam: Normal appearance, PERRL - Neck Exam Neck Exam: Normal Inspection - Respiratory Exam Respiratory Exam: Accessory Muscle Use, Chest Wall Tenderness (right sided) Additional comments: Right breath sounds diminshed. - Cardiovascular Exam Cardiovascular Exam: Tachycardia Additional comments: Normal S1 and S2 - GI/Abdominal Exam GI & Abdominal Exam: Soft. absent: Guarding, Rebound - Neurological Exam Neurological Exam: Alert, Oriented x3 - Psychiatric Exam Psychiatric exam: Normal Affect - Skin Skin Exam: Dry, Normal Color Assessment and Plan - Assessment and Plan (Free Text) Assessment: 46 yo female admitted to the ICU for acute respiratory distress, anemia, and a supratherapeutic INR. She has a past medical history of SLE, DM, morbid obesity , DCM (EF of 15%) and a recently identified LV thrombus for which she was taking Coumadin. Diagnostic tests revealed a large, right sided pleural effusion along with an array of other life-threatening abnormalities. Plan: Neurologic: Patient is stable, alert, and oriented. Cardiovascular: Echocardiogram to assess LV thrombus and EF. Patient is in life vest, waiting for ICD placement. Last ECHO revealed an EF of 15%. ENT: Continuing IV steroids for upper pharygeal swelling/mass. Per ENT, they will reassess the upper pharynx once the pathology results are back. Respiratory: Chest tube placement for draining pleural fluid. On BiPAP. GI: Therapeutic dose PPI (Pantoprazole 40 mg, BID) given hemooccult positive stools. A slow GI bleed is possible, but cannot be the single cause of the dramatic change in H&H. ID: ID was consulted, agree and appreciate the recommendations. Levofloxacin was started, and Vancomycin and Cefepime will be added pending blood cultures. Hematology: H&H dropped from 8.8 to 7.1. 3 units of FFP were administered and the INR has returned to normal limits. 1 unit of PRBC was adminstered, will repeat CBC at 16:00. Endocrine: Glucose currently uncontrolled, placed on 6 units night time Levemir , and lispro medium sliding scale protocol. Fingerstick blood glucose will be checked before meals and at bedtime ([facility]). : UA revealed hematuria, proteinuria, and mild Leukocyte Esterase. Patient is on Levofloxacin. Blood likely secondary to supratherapeutic INR. <Binu ALDANA,Deepali H - Last Filed: 03/15/17 16:40> Objective - Vital Signs/Intake and Output Vital Signs (last 24 hours): Temp Pulse Resp BP Pulse Ox 98.6 F 110 H 20 104/69 100 03/15/17 15:15 03/15/17 15:15 03/15/17 15:15 03/15/17 15:15 03/15/17 06:30 Intake and Output: 03/15/17 03/15/17 06:59 18:59 Intake Total 1500 325 Output Total 0 Balance 1500 325 - Medications Medications: Current Medications Acetaminophen (Tylenol 325mg Tab) 650 mg PO Q4H PRN PRN Reason: Fever >100.4 F Albuterol/Ipratropium (Duoneb 3 Mg/0.5 Mg (3 Ml) Ud) 3 ml IH Q2H PRN PRN Reason: Shortness of Breath Vancomycin HCl (Vancomycin 1gm) 1 gm in 250 mls @ 167 mls/hr IVPB Q12 ORION PRN Reason: Protocol Last Admin: 03/15/17 09:39 Dose: 167 mls/hr Cefepime HCl (Maxipime 2gm) 2 gm in 100 mls @ 100 mls/hr IVPB Q8 ORION PRN Reason: Protocol Stop: 03/22/17 08:16 Last Admin: 03/15/17 15:35 Dose: 100 mls/hr Insulin Detemir (Levemir) 6 unit SC HS ORION Insulin Human Lispro (Humalog High) 0 units SC ACHS ORION PRN Reason: Protocol Morphine Sulfate (Morphine) 2 mg IVP Q6H PRN PRN Reason: Pain, severe (8-10) Last Admin: 03/15/17 15:45 Dose: 2 mg Ondansetron HCl (Zofran Inj) 4 mg IVP Q6H PRN PRN Reason: Nausea/Vomiting Pantoprazole Sodium (Protonix Inj) 40 mg IVP BID ORION - Labs Labs: 03/15/17 09:30 03/15/17 09:30 PT 17.4 Seconds (9.9-11.8) H 03/15/17 09:30 INR 1.61 (0.93-1.08) H 03/15/17 09:30 APTT 44.2 Seconds (23.7-30.8) H 03/15/17 09:30 Attending/Attestation - Attestation I have personally seen and examined this patient.: Yes I have fully participated in the care of the patient.: Yes I have reviewed all pertinent clinical information, including history, physical exam and plan: Yes Notes (Text): 03/15/17 16:31 46 y/o F w/ R sided new Pleural effusion w/ pleuritic chest pain , fevers chills and drop in HGB. R Pleural effusion visualized under CT chest shows compressive atelectasis . R sided chest pain with elevated INR on coumadin. Recent cardiac thrombus on coumadin , EF 15% cardiomyopathy undetermined . Life vest on patient. Given FFP and Vitak\\min K. INR < 2.0 US bedside done, no free flowing fluid. Need for CT for complicated parapneumonic effusion . Worrisome for hemothorax/ empyema WOuld continue Meropenum and vancomycin or linezolid) . ID consulted HGB repeat q4 hrs. KEEP > 7 Repeat ECHo done, EF 15%. No cardiac thrombus seen this time. addendum Pleural PH 6.96 dvt P SCD PPI cc time 72 min
--- NOTE | 2017-03-15 13:19 | CARD ---
APPROVED REPORT EKG Measurement Heart [id number] <Conclusion> Sinus tachycardia LAD STTW changes c/w ischemia
[2017-03-15 14:35] LABS: TROPONIN I 0.02 ng/mL
[2017-03-15] MEDS ORDERED: Morphine 4 mg/ml ISec IVP STA (15:42)
[2017-03-15] MEDS ORDERED: Morphine 4 mg/ml ISec IVP ONE (15:43)
[2017-03-15 16:23] LABS: BODY FLUID TYPE PLEURAL/THORACENTESI
--- NOTE | 2017-03-15 16:57 | CP.PCM.CON ---
History of Present Illness - History of Present Illness History of Present Illness: General Surgery Dr. Alicea 46 y/o F w/ PMHx of HTN, IDDM, severe dilated cardiomyopathy w/ CHF, & LV thrombus presented to the ED this AM c/o SOB and LLE pain x3days. Pt denied redness, edema, or swelling in LLE. Pt c/o cough w/ blood tinged sputum and mild SOB x 1day. Pt has never had this before. Pt was admitted to the ICU w/ sepsis, R pleural effusion, and supra-therapeutic INR of 11. Pt history taken from EMR due to acuity of care and pt unable to speak 2/2 BiPap. PMHx: HTN, IDDM, Asthma, HLD, SLE, Dilated CM, LV Thrombus, CHF (EF=15%), Migraines, ectopic , Spinal Stenosis, GERD Meds: Reviewed Allergies: NKDA PSHx: D&C X 2 SHx: Denies smoking, Denies illicits; Social Drinker FHx: Non-contributory Review of Systems - Review of Systems Systems not reviewed;Unavailable: Acuity of Condition, Respiratory Distress Past Patient History - Infectious Disease Hx of Infectious Diseases: None - Past Social History Smoking Status: Never Smoked - CARDIAC Hx Cardiac Disorders: No Hx Angina: No Hx Cardia Arrhythmia: No Hx Circulatory Problems: No Hx Congestive Heart Failure: No Hx Heart Murmur: No Hx Heart Transplant: No Hx Hypercholesterolemia: Yes Hx Hypertension: Yes Hx Internal Defibrillator: No Hx Mitral Valve Prolapse: No Hx Pacemaker: No Hx Peripheral Edema: No Hx Peripheral Vascular Disease: No Other/Comment: external defib: Life Vest. Clot in heart - PULMONARY Hx Respiratory Disorders: Yes Hx Asthma: Yes Hx Bronchitis: Yes Hx Chronic Obstructive Pulmonary Disease (COPD): No Hx Emphysema: No Hx Pneumonia: Yes Hx Respiratory Aspiration: No Hx Respiratory Tract Infection: No Hx Sleep Apnea: No Hx Tuberculosis: No - NEUROLOGICAL Hx Neurological Disorder: Yes Hx Alzheimer's Disease: No HX Cerebrovascular Accident: No Hx Dementia: No Hx Dizziness: No Hx Meningitis: No Hx Migraine: Yes Hx Parkinson's Disease: No Hx Seizures: No Hx Transient Ischemic Attacks (TIA): No - HEENT Hx HEENT Problems: No Hx Blind: No Hx Cataracts: Yes (bilat cataract sx jun 2016) Hx Deafness: No Hx Difficulty Chewing: No Hx Epistaxis: No Hx Glaucoma: No Hx Macular Degeneration: No - RENAL Hx Chronic Kidney Disease: No Hx Dialysis: No Hx Kidney Stones: No Hx Neurogenic Bladder: No Hx Pyelonephritis: No Hx Renal (Kidney) Cancer: No Hx Renal Failure: No - ENDOCRINE/METABOLIC Hx Endocrine Disorders: Yes Hx Adrenal Cancer: No Hx Diabetes Insipidus: No Hx Diabetes Mellitus Type 1: No Hx Diabetes Mellitus Type 2: Yes Hx Hyperthyroidism: No Hx Hypothyroidism: No Hx Systemic Lupus Erythematosus: Yes Other/Comment: pituitary adenoma - HEMATOLOGICAL/ONCOLOGICAL Hx Blood Disorders: No Hx AIDS: No Hx Anemia: No Hx Cancer: No Hx Chemotherapy: No Hx Cirrhosis: No Hx Hemophilia: No Hx Hepatitis A: No Hx Hepatitis B: No Hx Hepatitis C: No Hx Human Immunodeficiency Virus (HIV): No Hx Metastesis: No Hx Shingles: No Hx Sickle Cell Disease: No Hx Unexplained Bleeding: No - INTEGUMENTARY Hx Dermatological Problems: No Hx Basil Cell: No Hx Eczema: No Hx Melanoma: No Hx Psoriasis: No Hx Squamous Cell: No - MUSCULOSKELETAL/RHEUMATOLOGICAL Hx Musculoskeletal Disorders: Yes Hx Arthritis: No Hx Back Pain: Yes Hx Degenerative Joint Disease: Yes Hx Falls: Yes Hx Fractures: No Hx Gout: No Hx Herniated Disk: No Hx Myasthenia Gravis: No Hx Osteoarthritis: No Hx Osteomyelitis: No Hx Osteoporosis: No Hx Rhabdomyolysis: No Hx Spinal Stenosis: Yes Hx Unsteady Gait: No - GASTROINTESTINAL Hx Gastrointestinal Disorders: No Hx Colostomy: No Hx Crohn's Disease: No Hx Diverticulitis: No Hx Gall Bladder Disease: No Hx Gastroesophageal Reflux: No Hx Ileostomy: No Hx Liver Failure: No Hx Pancreatitis: No HX Swallowing Problems: No Hx Ulcer: No - GENITOURINARY/GYNECOLOGICAL Hx Genitourinary Disorders: No Hx Hematuria: No Hx Incontinence: No Hx Sexually Transmitted Disorders: No Other/Comment: ectopic then tubal ligation - PSYCHIATRIC Hx Psychophysiologic Disorder: No Hx Anxiety: No Hx Bipolar Disorder: No Hx Depression: No Hx Emotional Abuse: No Hx Hallucinations: No Hx Panic Symptoms: No Hx Paranoia: No Hx Post Traumatic Stress Disorder: No Hx Psychosis: No Hx Physical Abuse: No Hx Schizophrenia: No Hx Sexual Abuse: No - SURGICAL HISTORY Hx Surgeries: Yes Hx Cardiac Catheterization: No Hx Coronary Stent: No Other/Comment: Eptopic Preg - ANESTHESIA Hx Anesthesia: Yes Hx Anesthesia Reactions: No Meds Allergies/Adverse Reactions: Allergies Allergy/AdvReac Type Severity Reaction Status Date / Time No Known Allergies Allergy Verified 03/14/17 20:31 - Medications Medications: Current Medications Acetaminophen (Tylenol 325mg Tab) 650 mg PO Q4H PRN PRN Reason: Fever >100.4 F Albuterol/Ipratropium (Duoneb 3 Mg/0.5 Mg (3 Ml) Ud) 3 ml IH Q2H PRN PRN Reason: Shortness of Breath Vancomycin HCl (Vancomycin 1gm) 1 gm in 250 mls @ 167 mls/hr IVPB Q12 ORION PRN Reason: Protocol Last Admin: 03/15/17 09:39 Dose: 167 mls/hr Cefepime HCl (Maxipime 2gm) 2 gm in 100 mls @ 100 mls/hr IVPB Q8 ORION PRN Reason: Protocol Stop: 03/22/17 08:16 Last Admin: 03/15/17 15:35 Dose: 100 mls/hr Insulin Detemir (Levemir) 6 unit SC HS ORION Insulin Human Lispro (Humalog High) 0 units SC ACHS ORION PRN Reason: Protocol Morphine Sulfate (Morphine) 2 mg IVP Q6H PRN PRN Reason: Pain, severe (8-10) Last Admin: 03/15/17 15:45 Dose: 2 mg Ondansetron HCl (Zofran Inj) 4 mg IVP Q6H PRN PRN Reason: Nausea/Vomiting Pantoprazole Sodium (Protonix Inj) 40 mg IVP BID [facility] Physical Exam - Constitutional Appears: Non-toxic, In Acute Distress, Other (obese) - Head Exam Head Exam: NORMAL INSPECTION - Eye Exam Eye Exam: Normal appearance - ENT Exam ENT Exam: Mucous Membranes Moist - Respiratory Exam Respiratory Exam: Decreased Breath Sounds - Cardiovascular Exam Cardiovascular Exam: Tachycardia, REGULAR RHYTHM - GI/Abdominal Exam GI & Abdominal Exam: Soft. absent: Distended - Extremities Exam Extremities exam: Positive for: normal inspection - Back Exam Back exam: NORMAL INSPECTION - Neurological Exam Neurological exam: Alert, Oriented x3 - Psychiatric Exam Psychiatric exam: Anxious, Normal Affect - Skin Skin Exam: Dry, Intact, Normal Color, Warm Results - Vital Signs Recent Vital Signs: Last Vital Signs Temp 98.6 F 03/15/17 16:00 Pulse 121 H 03/15/17 16:40 Resp 30 H 03/15/17 16:40 BP 118/74 03/15/17 16:00 Pulse Ox 99 03/15/17 16:30 - Labs Result Diagrams: 03/15/17 09:30 03/15/17 09:30 Labs: Laboratory Results - last 24 hr 03/14/17 03/15/17 03/15/17 22:00 00:00 00:00 WBC RBC Hgb Hct MCV MCH MCHC RDW Plt Count MPV Gran % Lymph % (Auto) Phillips % (Auto) Eos % (Auto) Baso % (Auto) Gran # Lymph # Phillips # Eos # Baso # PT > 120.0 H* INR > 11.00 H* APTT > 180.0 H* pCO2 pO2 32 HCO3 ABG pH ABG Total CO2 ABG O2 Saturation ABG O2 Content ABG Base Excess ABG Hemoglobin ABG Carboxyhemoglobin POC ABG HHb (Measured) ABG Methemoglobin ABG O2 Capacity VBG pH 7.26 L VBG pCO2 59.0 VBG HCO3 26.5 VBG Total CO2 28.3 H VBG O2 Sat (Calc) 50.5 VBG Base Excess -1.7 L VBG Potassium 4.4 Hgb O2 Saturation Sodium 135.0 Chloride 103.0 Glucose 378 H Lactate 4.1 H* FiO2 21.0 Potassium Carbon Dioxide Anion Gap BUN Creatinine Est GFR ( Amer) Est GFR (Non-Af Amer) POC Glucose (mg/dL) Random Glucose Lactic Acid Calcium Phosphorus Magnesium Total Bilirubin AST ALT Alkaline Phosphatase Total Creatine Kinase Troponin I Total Protein Albumin Globulin Albumin/Globulin Ratio Venous Blood Potassium 4.4 Urine Color Yellow Urine Appearance Sl cloudy Urine pH 6.0 Ur Specific [place] >= 1.030 Urine Protein 30 H Urine Glucose (UA) >=1000 Urine Ketones 15 H Urine Blood Large H Urine Nitrate Negative Urine Bilirubin Negative Urine Urobilinogen 0.2 Ur Leukocyte Esterase Trace H Urine RBC Tntc Urine WBC 5 - 10 Ur Epithelial Cells Many Urine Bacteria Few Fluid Source Blood Type Antibody Screen Crossmatch BBK History Checked 03/15/17 03/15/17 03/15/17 00:00 01:45 06:00 WBC RBC Hgb Hct MCV MCH MCHC RDW Plt Count MPV Gran % Lymph % (Auto) Phillips % (Auto) Eos % (Auto) Baso % (Auto) Gran # Lymph # Phillips # Eos # Baso # PT INR APTT pCO2 43 pO2 85.0 HCO3 26.0 ABG pH 7.39 ABG Total CO2 27.3 ABG O2 Saturation 99.2 H ABG O2 Content 9.9 L ABG Base Excess 0.9 ABG Hemoglobin 7.2 L ABG Carboxyhemoglobin 2.3 H POC ABG HHb (Measured) 0.8 ABG Methemoglobin 0.3 ABG O2 Capacity 10.0 L VBG pH VBG pCO2 VBG HCO3 VBG Total CO2 VBG O2 Sat (Calc) VBG Base Excess VBG Potassium Hgb O2 Saturation 96.6 Sodium Chloride Glucose Lactate FiO2 28.0 Potassium Carbon Dioxide Anion Gap BUN Creatinine Est GFR ( Amer) Est GFR (Non-Af Amer) POC Glucose (mg/dL) Random Glucose Lactic Acid 3.5 H Calcium Phosphorus Magnesium Total Bilirubin AST ALT Alkaline Phosphatase Total Creatine Kinase Troponin I Total Protein Albumin Globulin Albumin/Globulin Ratio Venous Blood Potassium Urine Color Urine Appearance Urine pH Ur Specific [place] Urine Protein Urine Glucose (UA) Urine Ketones Urine Blood Urine Nitrate Urine Bilirubin Urine Urobilinogen Ur Leukocyte Esterase Urine RBC Urine WBC Ur Epithelial Cells Urine Bacteria Fluid Source Blood Type B POSITIVE Antibody Screen Negative Crossmatch See Detail BBK History Checked Patient has bt 03/15/17 03/15/17 03/15/17 08:08 09:30 09:30 WBC 14.0 H D RBC 3.10 L Hgb 7.1 L Hct 23.0 L MCV 74.2 L MCH 22.9 L MCHC 30.9 L RDW 15.7 H Plt Count 411 MPV 8.7 Gran % 64.8 Lymph % (Auto) 24.8 Phillips % (Auto) 9.0 H Eos % (Auto) 1.3 L Baso % (Auto) 0.1 Gran # 9.08 H Lymph # 3.5 H Phillips # 1.3 H Eos # 0.2 Baso # 0.02 PT INR APTT pCO2 pO2 HCO3 ABG pH ABG Total CO2 ABG O2 Saturation ABG O2 Content ABG Base Excess ABG Hemoglobin ABG Carboxyhemoglobin POC ABG HHb (Measured) ABG Methemoglobin ABG O2 Capacity VBG pH VBG pCO2 VBG HCO3 VBG Total CO2 VBG O2 Sat (Calc) VBG Base Excess VBG Potassium Hgb O2 Saturation Sodium 136 Chloride 99 Glucose Lactate FiO2 Potassium 3.9 Carbon Dioxide 29 Anion Gap 12 BUN 15 Creatinine 0.8 Est GFR ( Amer) > 60 Est GFR (Non-Af Amer) > 60 POC Glucose (mg/dL) 323 H Random Glucose 262 H Lactic Acid Calcium 9.1 Phosphorus 3.6 Magnesium 2.3 H Total Bilirubin 1.4 H AST 26 ALT 27 Alkaline Phosphatase 103 Total Creatine Kinase 65 Troponin I 0.04 D Total Protein 6.8 Albumin 3.3 Globulin 3.5 Albumin/Globulin Ratio 1.0 L Venous Blood Potassium Urine Color Urine Appearance Urine pH Ur Specific [place] Urine Protein Urine Glucose (UA) Urine Ketones Urine Blood Urine Nitrate Urine Bilirubin Urine Urobilinogen Ur Leukocyte Esterase Urine RBC Urine WBC Ur Epithelial Cells Urine Bacteria Fluid Source Blood Type Antibody Screen Crossmatch BBK History Checked 03/15/17 03/15/17 03/15/17 09:30 11:47 14:10 WBC RBC Hgb Hct MCV MCH MCHC RDW Plt Count MPV Gran % Lymph % (Auto) Phillips % (Auto) Eos % (Auto) Baso % (Auto) Gran # Lymph # Phillips # Eos # Baso # PT 17.4 H INR 1.61 H APTT 44.2 H pCO2 pO2 HCO3 ABG pH ABG Total CO2 ABG O2 Saturation ABG O2 Content ABG Base Excess ABG Hemoglobin ABG Carboxyhemoglobin POC ABG HHb (Measured) ABG Methemoglobin ABG O2 Capacity VBG pH VBG pCO2 VBG HCO3 VBG Total CO2 VBG O2 Sat (Calc) VBG Base Excess VBG Potassium Hgb O2 Saturation Sodium Chloride Glucose Lactate FiO2 Potassium Carbon Dioxide Anion Gap BUN Creatinine Est GFR ( Amer) Est GFR (Non-Af Amer) POC Glucose (mg/dL) 282 H Random Glucose Lactic Acid Calcium Phosphorus Magnesium Total Bilirubin AST ALT Alkaline Phosphatase Total Creatine Kinase 65 Troponin I 0.02 D Total Protein Albumin Globulin Albumin/Globulin Ratio Venous Blood Potassium Urine Color Urine Appearance Urine pH Ur Specific [place] Urine Protein Urine Glucose (UA) Urine Ketones Urine Blood Urine Nitrate Urine Bilirubin Urine Urobilinogen Ur Leukocyte Esterase Urine RBC Urine WBC Ur Epithelial Cells Urine Bacteria Fluid Source Blood Type Antibody Screen Crossmatch BBK History Checked 03/15/17 16:22 WBC RBC Hgb Hct MCV MCH MCHC RDW Plt Count MPV Gran % Lymph % (Auto) Phillips % (Auto) Eos % (Auto) Baso % (Auto) Gran # Lymph # Phillips # Eos # Baso # PT INR APTT pCO2 pO2 HCO3 ABG pH ABG Total CO2 ABG O2 Saturation ABG O2 Content ABG Base Excess ABG Hemoglobin ABG Carboxyhemoglobin POC ABG HHb (Measured) ABG Methemoglobin ABG O2 Capacity VBG pH VBG pCO2 VBG HCO3 VBG Total CO2 VBG O2 Sat (Calc) VBG Base Excess VBG Potassium Hgb O2 Saturation Sodium Chloride Glucose Lactate FiO2 Potassium Carbon Dioxide Anion Gap BUN Creatinine Est GFR ( Amer) Est GFR (Non-Af Amer) POC Glucose (mg/dL) Random Glucose Lactic Acid Calcium Phosphorus Magnesium Total Bilirubin AST ALT Alkaline Phosphatase Total Creatine Kinase Troponin I Total Protein Albumin Globulin Albumin/Globulin Ratio Venous Blood Potassium Urine Color Urine Appearance Urine pH Ur Specific [place] Urine Protein Urine Glucose (UA) Urine Ketones Urine Blood Urine Nitrate Urine Bilirubin Urine Urobilinogen Ur Leukocyte Esterase Urine RBC Urine WBC Ur Epithelial Cells Urine Bacteria Fluid Source Pleural/thoracentesi Blood Type Antibody Screen Crossmatch BBK History Checked - Imaging and Cardiology CT scan - chest Status: Image reviewed by me Assessment & Plan - Assessment and Plan (Free Text) Assessment: 46 y/o F w/ complicated hemathorax POD#0 s/p R CT insertion - R CT to continuous suction - monitor RCT output - monitor H/H - daily CXR - pain management - f/u pleural fluid labs - cont ICU management Pt discussed w/ Dr. Nixon Baker DO PGY2 Procedure - Procedure and Findings -: Consent was obtained. Correct side verified. Time out was performed. Pt was prepped and draped and a sterile fashion. Right 4th rib and 3rd/4th intercostal space was palpated. 1% 10cc lidocaince was injected along skin and down to the farrukh-osteum Incision was made over 4th rib. Blunt dissection performed using regular Asia clamp. Long Asia was used to enter the thoracic cavity. Upon entry, a gush of sanguinous fluid was seen. Tract and thoracic insertion-site were dilated digitally and with Asia clamp. 28F CT advanced along tract, into thoracic cavity. 50cc sanguinous fluid evacuated upon CT entry. CT attached to pleura-vac. Another 5cc 1% lidocaine injected along incision. RCT sutured in place using O silk suture x2. 1600cc sanguinous fluid drainged from thoarcic cavity. Pt tolerated the procedure well with no complications.
--- NOTE | 2017-03-15 17:03 | RAD ---
HISTORY: S/P right chest tube insertion COMPARISON: Chest x-ray performed 03/14/17 TECHNIQUE: Chest, one view. FINDINGS: LUNGS: Right-sided chest tube. Right-sided pleural effusion. Right-sided pulmonary venous congestion. No definite pneumothorax. Please note that chest x-ray has limited sensitivity for the detection of pulmonary masses. CARDIOVASCULAR: Borderline cardiomegaly. OSSEOUS STRUCTURES: Degenerative changes. VISUALIZED UPPER ABDOMEN: Unremarkable. OTHER FINDINGS: None. IMPRESSION: Right-sided chest tube. Right-sided pleural effusion persists, decreased in extent since prior study. Right-sided pulmonary venous congestion.
[2017-03-15 17:07] LABS: BF GROSS APPEARANCE BLOODY (CLEAR)
[2017-03-15 17:08] LABS: BODY FLUID MONO/MACROPHAGE 0 % (0-0); BODY FLUID TOTAL COUNT 100 (0-0)
[2017-03-15] MEDS: Insulin Lispro (HUMAlog) HIGH Coverage SC SCH ×2 (17:36→21:37)
[2017-03-15 18:17] LABS: HEMOGLOBIN 8.7 gm/dL (12.0-16.0); MEAN CELL VOLUME 77.6 fL (80.0-105.0); MEAN CORPUSCULAR HEMOGLOBIN 24.4 pg (25.0-35.0); MEAN CORPUSCULAR HGB CONC 31.4 g/dl (31.0-37.0); RBC 3.57 10^6/uL (3.5-6.1); WHITE BLOOD COUNT 15.6 10^3/ul (4.5-11.0)
--- NOTE | 2017-03-15 18:19 | CP.PCM.CON ---
History of Present Illness - History of Present Illness History of Present Illness: Reason for Consultation:SOB, Pl effusion, CMP 46 year old morbidly obese female with pMhx T2DM, HTN, Non ischemic CMP, SLEChf admitted with one week Hx of progressively increasing SOB, CxR C/w with right large pl effusiomn S/p chjest Tube feels lesser SOB now, denies Chest pain PHx. SLE, Non Ischemic CMP S/P Cardiac cath 02/10/2017.. Non Obst CAD, NO AR.. By Dr. Gaston Echo _EF-15%, Moderate MR, Milr Tr, RV Kh LV thrombus Hx of Spinal stenosis Hx Of GERD Hx of CHF as above Review of Systems - Constitutional Constitutional: As Per HPI - EENT Eyes: As Per HPI Ears: As Per HPI Nose/Mouth/Throat: As Per HPI - Breasts Breasts: As Per HPI - Cardiovascular Cardiovascular: Dyspnea, Dyspnea on Exertion - Respiratory Respiratory: Cough, Dyspnea - Genitourinary Genitourinary: As Per HPI - Reproductive: Female Reproductive:Female: As Per HPI - Menstruation Menstruation: As Per HPI - Musculoskeletal Musculoskeletal: As Per HPI - Integumentary Integumentary: As Per HPI - Neurological Neurological: As Per HPI Past Patient History - Infectious Disease Hx of Infectious Diseases: None - Past Social History Smoking Status: Never Smoked - CARDIAC Hx Cardiac Disorders: No Hx Angina: No Hx Cardia Arrhythmia: No Hx Circulatory Problems: No Hx Congestive Heart Failure: No Hx Heart Murmur: No Hx Heart Transplant: No Hx Hypercholesterolemia: Yes Hx Hypertension: Yes Hx Internal Defibrillator: No Hx Mitral Valve Prolapse: No Hx Pacemaker: No Hx Peripheral Edema: No Hx Peripheral Vascular Disease: No Other/Comment: external defib: Life Vest. Clot in heart - PULMONARY Hx Respiratory Disorders: Yes Hx Asthma: Yes Hx Bronchitis: Yes Hx Chronic Obstructive Pulmonary Disease (COPD): No Hx Emphysema: No Hx Pneumonia: Yes Hx Respiratory Aspiration: No Hx Respiratory Tract Infection: No Hx Sleep Apnea: No Hx Tuberculosis: No - NEUROLOGICAL Hx Neurological Disorder: Yes Hx Alzheimer's Disease: No HX Cerebrovascular Accident: No Hx Dementia: No Hx Dizziness: No Hx Meningitis: No Hx Migraine: Yes Hx Parkinson's Disease: No Hx Seizures: No Hx Transient Ischemic Attacks (TIA): No - HEENT Hx HEENT Problems: No Hx Blind: No Hx Cataracts: Yes (bilat cataract sx jun 2016) Hx Deafness: No Hx Difficulty Chewing: No Hx Epistaxis: No Hx Glaucoma: No Hx Macular Degeneration: No - RENAL Hx Chronic Kidney Disease: No Hx Dialysis: No Hx Kidney Stones: No Hx Neurogenic Bladder: No Hx Pyelonephritis: No Hx Renal (Kidney) Cancer: No Hx Renal Failure: No - ENDOCRINE/METABOLIC Hx Endocrine Disorders: Yes Hx Adrenal Cancer: No Hx Diabetes Insipidus: No Hx Diabetes Mellitus Type 1: No Hx Diabetes Mellitus Type 2: Yes Hx Hyperthyroidism: No Hx Hypothyroidism: No Hx Systemic Lupus Erythematosus: Yes Other/Comment: pituitary adenoma - HEMATOLOGICAL/ONCOLOGICAL Hx Blood Disorders: No Hx AIDS: No Hx Anemia: No Hx Cancer: No Hx Chemotherapy: No Hx Cirrhosis: No Hx Hemophilia: No Hx Hepatitis A: No Hx Hepatitis B: No Hx Hepatitis C: No Hx Human Immunodeficiency Virus (HIV): No Hx Metastesis: No Hx Shingles: No Hx Sickle Cell Disease: No Hx Unexplained Bleeding: No - INTEGUMENTARY Hx Dermatological Problems: No Hx Basil Cell: No Hx Eczema: No Hx Melanoma: No Hx Psoriasis: No Hx Squamous Cell: No - MUSCULOSKELETAL/RHEUMATOLOGICAL Hx Musculoskeletal Disorders: Yes Hx Arthritis: No Hx Back Pain: Yes Hx Degenerative Joint Disease: Yes Hx Falls: Yes Hx Fractures: No Hx Gout: No Hx Herniated Disk: No Hx Myasthenia Gravis: No Hx Osteoarthritis: No Hx Osteomyelitis: No Hx Osteoporosis: No Hx Rhabdomyolysis: No Hx Spinal Stenosis: Yes Hx Unsteady Gait: No - GASTROINTESTINAL Hx Gastrointestinal Disorders: No Hx Colostomy: No Hx Crohn's Disease: No Hx Diverticulitis: No Hx Gall Bladder Disease: No Hx Gastroesophageal Reflux: No Hx Ileostomy: No Hx Liver Failure: No Hx Pancreatitis: No HX Swallowing Problems: No Hx Ulcer: No - GENITOURINARY/GYNECOLOGICAL Hx Genitourinary Disorders: No Hx Hematuria: No Hx Incontinence: No Hx Sexually Transmitted Disorders: No Other/Comment: ectopic then tubal ligation - PSYCHIATRIC Hx Psychophysiologic Disorder: No Hx Anxiety: No Hx Bipolar Disorder: No Hx Depression: No Hx Emotional Abuse: No Hx Hallucinations: No Hx Panic Symptoms: No Hx Paranoia: No Hx Post Traumatic Stress Disorder: No Hx Psychosis: No Hx Physical Abuse: No Hx Schizophrenia: No Hx Sexual Abuse: No - SURGICAL HISTORY Hx Surgeries: Yes Hx Cardiac Catheterization: No Hx Coronary Stent: No Other/Comment: Eptopic Preg - ANESTHESIA Hx Anesthesia: Yes Hx Anesthesia Reactions: No Meds Allergies/Adverse Reactions: Allergies Allergy/AdvReac Type Severity Reaction Status Date / Time No Known Allergies Allergy Verified 03/14/17 20:31 - Medications Medications: Current Medications Acetaminophen (Tylenol 325mg Tab) 650 mg PO Q4H PRN PRN Reason: Fever >100.4 F Albuterol/Ipratropium (Duoneb 3 Mg/0.5 Mg (3 Ml) Ud) 3 ml IH Q2H PRN PRN Reason: Shortness of Breath Vancomycin HCl (Vancomycin 1gm) 1 gm in 250 mls @ 167 mls/hr IVPB Q12 [facility] PRN Reason: Protocol Last Admin: 03/15/17 09:39 Dose: 167 mls/hr Cefepime HCl (Maxipime 2gm) 2 gm in 100 mls @ 100 mls/hr IVPB Q8 [facility] PRN Reason: Protocol Stop: 03/22/17 08:16 Last Admin: 03/15/17 15:35 Dose: 100 mls/hr Insulin Detemir (Levemir) 6 unit SC HS [facility] Insulin Human Lispro (Humalog High) 0 units SC ACHS [facility] PRN Reason: Protocol Last Admin: 03/15/17 17:36 Dose: 5 units Morphine Sulfate (Morphine) 4 mg IVP Q4H PRN PRN Reason: Pain, moderate (4-7) Ondansetron HCl (Zofran Inj) 4 mg IVP Q6H PRN PRN Reason: Nausea/Vomiting Pantoprazole Sodium (Protonix Inj) 40 mg IVP BID [facility] Last Admin: 03/15/17 17:37 Dose: 40 mg Physical Exam - Respiratory Exam Additional comments: Decraes air entry at bases in both lungs fileld. Results - Vital Signs Recent Vital Signs: Last Vital Signs Temp 98.6 F 03/15/17 16:00 Pulse 121 H 03/15/17 16:40 Resp 30 H 03/15/17 16:40 BP 118/74 03/15/17 16:00 Pulse Ox 99 03/15/17 16:30 - Labs Result Diagrams: 03/15/17 09:30 03/15/17 09:30 Labs: Laboratory Results - last 24 hr 03/14/17 03/15/17 03/15/17 22:00 00:00 00:00 WBC RBC Hgb Hct MCV MCH MCHC RDW Plt Count MPV Gran % Lymph % (Auto) [place] % (Auto) Eos % (Auto) Baso % (Auto) Gran # Lymph # [place] # Eos # Baso # PT > 120.0 H* INR > 11.00 H* APTT > 180.0 H* pCO2 pO2 32 HCO3 ABG pH ABG Total CO2 ABG O2 Saturation ABG O2 Content ABG Base Excess ABG Hemoglobin ABG Carboxyhemoglobin POC ABG HHb (Measured) ABG Methemoglobin ABG O2 Capacity VBG pH 7.26 L VBG pCO2 59.0 VBG HCO3 26.5 VBG Total CO2 28.3 H VBG O2 Sat (Calc) 50.5 VBG Base Excess -1.7 L VBG Potassium 4.4 Hgb O2 Saturation Sodium 135.0 Chloride 103.0 Glucose 378 H Lactate 4.1 H* FiO2 21.0 Potassium Carbon Dioxide Anion Gap BUN Creatinine Est GFR ( Amer) Est GFR (Non-Af Amer) POC Glucose (mg/dL) Random Glucose Lactic Acid Calcium Phosphorus Magnesium Total Bilirubin AST ALT Alkaline Phosphatase Total Creatine Kinase Troponin I Total Protein Albumin Globulin Albumin/Globulin Ratio Venous Blood Potassium 4.4 Urine Color Yellow Urine Appearance Sl cloudy Urine pH 6.0 Ur Specific [place] >= 1.030 Urine Protein 30 H Urine Glucose (UA) >=1000 Urine Ketones 15 H Urine Blood Large H Urine Nitrate Negative Urine Bilirubin Negative Urine Urobilinogen 0.2 Ur Leukocyte Esterase Trace H Urine RBC Tntc Urine WBC 5 - 10 Ur Epithelial Cells Many Urine Bacteria Few Fluid Source Fluid Appearance Fluid WBC Fluid RBC Fluid Tot Cell Count Fluid Neutrophils Fluid Lymphocytes Fld Monocyte/Macrophag Fluid Comment Pleural pH Blood Type Antibody Screen Crossmatch BBK History Checked 03/15/17 03/15/17 03/15/17 00:00 01:45 06:00 WBC RBC Hgb Hct MCV MCH MCHC RDW Plt Count MPV Gran % Lymph % (Auto) [place] % (Auto) Eos % (Auto) Baso % (Auto) Gran # Lymph # [place] # Eos # Baso # PT INR APTT pCO2 43 pO2 85.0 HCO3 26.0 ABG pH 7.39 ABG Total CO2 27.3 ABG O2 Saturation 99.2 H ABG O2 Content 9.9 L ABG Base Excess 0.9 ABG Hemoglobin 7.2 L ABG Carboxyhemoglobin 2.3 H POC ABG HHb (Measured) 0.8 ABG Methemoglobin 0.3 ABG O2 Capacity 10.0 L VBG pH VBG pCO2 VBG HCO3 VBG Total CO2 VBG O2 Sat (Calc) VBG Base Excess VBG Potassium Hgb O2 Saturation 96.6 Sodium Chloride Glucose Lactate FiO2 28.0 Potassium Carbon Dioxide Anion Gap BUN Creatinine Est GFR ( Amer) Est GFR (Non-Af Amer) POC Glucose (mg/dL) Random Glucose Lactic Acid 3.5 H Calcium Phosphorus Magnesium Total Bilirubin AST ALT Alkaline Phosphatase Total Creatine Kinase Troponin I Total Protein Albumin Globulin Albumin/Globulin Ratio Venous Blood Potassium Urine Color Urine Appearance Urine pH Ur Specific [place] Urine Protein Urine Glucose (UA) Urine Ketones Urine Blood Urine Nitrate Urine Bilirubin Urine Urobilinogen Ur Leukocyte Esterase Urine RBC Urine WBC Ur Epithelial Cells Urine Bacteria Fluid Source Fluid Appearance Fluid WBC Fluid RBC Fluid Tot Cell Count Fluid Neutrophils Fluid Lymphocytes Fld Monocyte/Macrophag Fluid Comment Pleural pH Blood Type B POSITIVE Antibody Screen Negative Crossmatch See Detail BBK History Checked Patient has bt 03/15/17 03/15/17 03/15/17 08:08 09:30 09:30 WBC 14.0 H D RBC 3.10 L Hgb 7.1 L Hct 23.0 L MCV 74.2 L MCH 22.9 L MCHC 30.9 L RDW 15.7 H Plt Count 411 MPV 8.7 Gran % 64.8 Lymph % (Auto) 24.8 [place] % (Auto) 9.0 H Eos % (Auto) 1.3 L Baso % (Auto) 0.1 Gran # 9.08 H Lymph # 3.5 H [place] # 1.3 H Eos # 0.2 Baso # 0.02 PT INR APTT pCO2 pO2 HCO3 ABG pH ABG Total CO2 ABG O2 Saturation ABG O2 Content ABG Base Excess ABG Hemoglobin ABG Carboxyhemoglobin POC ABG HHb (Measured) ABG Methemoglobin ABG O2 Capacity VBG pH VBG pCO2 VBG HCO3 VBG Total CO2 VBG O2 Sat (Calc) VBG Base Excess VBG Potassium Hgb O2 Saturation Sodium 136 Chloride 99 Glucose Lactate FiO2 Potassium 3.9 Carbon Dioxide 29 Anion Gap 12 BUN 15 Creatinine 0.8 Est GFR ( Amer) > 60 Est GFR (Non-Af Amer) > 60 POC Glucose (mg/dL) 323 H Random Glucose 262 H Lactic Acid Calcium 9.1 Phosphorus 3.6 Magnesium 2.3 H Total Bilirubin 1.4 H AST 26 ALT 27 Alkaline Phosphatase 103 Total Creatine Kinase 65 Troponin I 0.04 D Total Protein 6.8 Albumin 3.3 Globulin 3.5 Albumin/Globulin Ratio 1.0 L Venous Blood Potassium Urine Color Urine Appearance Urine pH Ur Specific [place] Urine Protein Urine Glucose (UA) Urine Ketones Urine Blood Urine Nitrate Urine Bilirubin Urine Urobilinogen Ur Leukocyte Esterase Urine RBC Urine WBC Ur Epithelial Cells Urine Bacteria Fluid Source Fluid Appearance Fluid WBC Fluid RBC Fluid Tot Cell Count Fluid Neutrophils Fluid Lymphocytes Fld Monocyte/Macrophag Fluid Comment Pleural pH Blood Type Antibody Screen Crossmatch BBK History Checked 03/15/17 03/15/17 03/15/17 09:30 11:47 14:10 WBC RBC Hgb Hct MCV MCH MCHC RDW Plt Count MPV Gran % Lymph % (Auto) [place] % (Auto) Eos % (Auto) Baso % (Auto) Gran # Lymph # [place] # Eos # Baso # PT 17.4 H INR 1.61 H APTT 44.2 H pCO2 pO2 HCO3 ABG pH ABG Total CO2 ABG O2 Saturation ABG O2 Content ABG Base Excess ABG Hemoglobin ABG Carboxyhemoglobin POC ABG HHb (Measured) ABG Methemoglobin ABG O2 Capacity VBG pH VBG pCO2 VBG HCO3 VBG Total CO2 VBG O2 Sat (Calc) VBG Base Excess VBG Potassium Hgb O2 Saturation Sodium Chloride Glucose Lactate FiO2 Potassium Carbon Dioxide Anion Gap BUN Creatinine Est GFR ( Amer) Est GFR (Non-Af Amer) POC Glucose (mg/dL) 282 H Random Glucose Lactic Acid Calcium Phosphorus Magnesium Total Bilirubin AST ALT Alkaline Phosphatase Total Creatine Kinase 65 Troponin I 0.02 D Total Protein Albumin Globulin Albumin/Globulin Ratio Venous Blood Potassium Urine Color Urine Appearance Urine pH Ur Specific [place] Urine Protein Urine Glucose (UA) Urine Ketones Urine Blood Urine Nitrate Urine Bilirubin Urine Urobilinogen Ur Leukocyte Esterase Urine RBC Urine WBC Ur Epithelial Cells Urine Bacteria Fluid Source Fluid Appearance Fluid WBC Fluid RBC Fluid Tot Cell Count Fluid Neutrophils Fluid Lymphocytes Fld Monocyte/Macrophag Fluid Comment Pleural pH Blood Type Antibody Screen Crossmatch BBK History Checked 03/15/17 03/15/17 03/15/17 16:22 16:39 17:21 WBC RBC Hgb Hct MCV MCH MCHC RDW Plt Count MPV Gran % Lymph % (Auto) [place] % (Auto) Eos % (Auto) Baso % (Auto) Gran # Lymph # [place] # Eos # Baso # PT INR APTT pCO2 pO2 HCO3 ABG pH ABG Total CO2 ABG O2 Saturation ABG O2 Content ABG Base Excess ABG Hemoglobin ABG Carboxyhemoglobin POC ABG HHb (Measured) ABG Methemoglobin ABG O2 Capacity VBG pH VBG pCO2 VBG HCO3 VBG Total CO2 VBG O2 Sat (Calc) VBG Base Excess VBG Potassium Hgb O2 Saturation Sodium Chloride Glucose Lactate FiO2 Potassium Carbon Dioxide Anion Gap BUN Creatinine Est GFR ( Amer) Est GFR (Non-Af Amer) POC Glucose (mg/dL) 273 H Random Glucose Lactic Acid Calcium Phosphorus Magnesium Total Bilirubin AST ALT Alkaline Phosphatase Total Creatine Kinase Troponin I Total Protein Albumin Globulin Albumin/Globulin Ratio Venous Blood Potassium Urine Color Urine Appearance Urine pH Ur Specific [place] Urine Protein Urine Glucose (UA) Urine Ketones Urine Blood Urine Nitrate Urine Bilirubin Urine Urobilinogen Ur Leukocyte Esterase Urine RBC Urine WBC Ur Epithelial Cells Urine Bacteria Fluid Source Pleural/thoracentesi Fluid Appearance Bloody Fluid WBC 6600.0 H Fluid RBC 2956808.0 H Fluid Tot Cell Count 100 H Fluid Neutrophils 61.4 H Fluid Lymphocytes 38.6 H Fld Monocyte/Macrophag 0 Fluid Comment TEST NOT PERFORMED Pleural pH 7.0 Blood Type Antibody Screen Crossmatch BBK History Checked Assessment & Plan - Assessment and Plan (Free Text) Assessment: Large pleural efussion, S/p cg=hest tube CMP CHf Non obst CAD Severe Anemia Morbid obesity SLE Spinal stenosis\COPDS/p Chest Tube Plan: Continue Chest tube draiange diuretics Low dose POrimacor Echo to assess lv Fx stool guaic low dose verapamil \ anti coag will follow. thx.
[2017-03-15] MEDS ORDERED: Digoxin 500 mcg/2ml (0.5 mg/2ml) Inj IVP ONE (18:22)
[2017-03-15 18:26] LABS: INR 1.36 (0.93-1.08); PROTHROMBIN TIME 14.7 Seconds (9.9-11.8)
[2017-03-15] MEDS: Morphine 4 mg/ml ISec IVP PRN (20:34)
[2017-03-15] MEDS: Milrinone 20mg/100ml D5W 100 ML IV PRN (20:42)
[2017-03-15 21:16] LABS: HEMOGLOBIN 8.6 gm/dL (12.0-16.0)
[2017-03-15] MEDS: Meropenem 1g/NS 100mL IVPB 1 GM/100 ML PIGGYBACK IVPB SCH (21:17)
[2017-03-15 21:39] LABS: TROPONIN I 0.03 ng/mL
[2017-03-15] MEDS ORDERED: Insulin Detemir 100 units/ml Vial (Levemir) SC SCH (22:00)
[2017-03-16] MEDS: Morphine 4 mg/ml ISec IVP PRN ×3 (02:08→20:16)
[2017-03-16] MEDS: Meropenem 1g/NS 100mL IVPB 1 GM/100 ML PIGGYBACK IVPB SCH (05:59)
[2017-03-16 06:25] LABS: BASO # 0.05 K/mm3 (0.0-2.0); BASO % 0.4 % (0.0-3.0); EOS # 0.3 (0.0-0.7); EOS % 2.4 % (1.5-5.0); GRAN # 9.58 (1.4-6.5); GRAN % 67.1 % (50.0-68.0); HEMOGLOBIN 9.3 gm/dL (12.0-16.0); LYMPH # 3.1 (1.2-3.4); LYMPH % 21.8 % (22.0-35.0); MEAN CELL VOLUME 77.9 fL (80.0-105.0); MEAN CORPUSCULAR HEMOGLOBIN 24.7 pg (25.0-35.0); MEAN CORPUSCULAR HGB CONC 31.7 g/dl (31.0-37.0); MONO # 1.2 (0.1-0.6); MONO % 8.3 % (1.0-6.0); PLATELET COUNT 447 10^3/uL (120.0-450.0); RBC 3.76 10^6/uL (3.5-6.1); RED CELL DISTRIBUTION WIDTH 16.6 % (11.5-14.5); WHITE BLOOD COUNT 14.3 10^3/ul (4.5-11.0)
[2017-03-16 06:27] LABS: INR 1.44 (0.93-1.08); PROTHROMBIN TIME 15.6 Seconds (9.9-11.8)
[2017-03-16 06:44] LABS: ALB/GLOB RATIO 0.9 (1.1-1.8); ALBUMIN 3.2 g/dL (3.0-4.8); ALT/SGPT 29 U/L (7-56); AST/SGOT 53 U/L (15-39); BLOOD UREA NITROGEN 15 mg/dL (7-21); CALCIUM 8.4 mg/dL (8.4-10.5); GFR AFRICAN-AMERICAN > 60; GFR NON-AFRICAN AMERICAN > 60; HDL CHOLESTEROL 28 mg/dL (29-60)
[2017-03-16 06:54] LABS: LDL CHOLESTEROL 79 mg/dL (0-129)
--- NOTE | 2017-03-16 07:47 | CP.PCM.PN ---
Subjective - Date & Time of Evaluation Date of Evaluation: 03/16/17 Time of Evaluation: 06:30 - Subjective Subjective: Pt S&E at bedside this am. No acute events overnight. Pt states she is feeling significantly better. talking in full sentences. appropriately tender around incision. Denies current SOB, Fever, Chills. Currently Tachycardic on monitor. Right Chest tube in place to suction. 1770ml since placement, 110ml over 12 hrs. site of RCT C/D/I Objective - Vital Signs/Intake and Output Vital Signs (last 24 hours): Temp Pulse Resp BP Pulse Ox 98 F 108 H 25 H 135/88 99 03/16/17 04:00 03/16/17 01:47 03/16/17 01:47 03/16/17 01:47 03/15/17 18:20 Intake and Output: 03/16/17 03/16/17 06:59 18:59 Intake Total 1065 Output Total 860 Balance 205 - Medications Medications: Current Medications Acetaminophen (Tylenol 325mg Tab) 650 mg PO Q4H PRN PRN Reason: Fever >100.4 F Albuterol/Ipratropium (Duoneb 3 Mg/0.5 Mg (3 Ml) Ud) 3 ml IH Q2H PRN PRN Reason: Shortness of Breath Digoxin (Lanoxin) 0.25 mg PO 1400 [facility] Furosemide (Lasix) 40 mg IV DAILY [facility] Vancomycin HCl (Vancomycin 1gm) 1 gm in 250 mls @ 167 mls/hr IVPB Q12 [facility] PRN Reason: Protocol Last Admin: 03/15/17 21:18 Dose: 167 mls/hr Milrinone Lactate/Dextrose (Primacor 20mg/100ml D5w) 100 mls @ 7.103 mls/hr IV .Q14H5M PRN; Protocol; 0.2 MCG/KG/MIN PRN Reason: TITRATE PER MD ORDER Last Admin: 03/15/17 20:42 Dose: 0.2 mcg/kg/min, 7.103 mls/hr Insulin Detemir (Levemir) 6 unit SC HS [facility] Last Admin: 03/15/17 21:32 Dose: 6 unit Insulin Human Lispro (Humalog High) 0 units SC ACHS [facility] PRN Reason: Protocol Last Admin: 03/15/17 21:37 Dose: Not Given Morphine Sulfate (Morphine) 4 mg IVP Q4H PRN PRN Reason: Pain, moderate (4-7) Last Admin: 03/16/17 02:08 Dose: 4 mg Ondansetron HCl (Zofran Inj) 4 mg IVP Q6H PRN PRN Reason: Nausea/Vomiting Pantoprazole Sodium (Protonix Inj) 40 mg IVP BID [facility] Last Admin: 03/15/17 17:37 Dose: 40 mg Verapamil HCl (Calan Tab) 40 mg PO TID [facility] - Labs Labs: 03/16/17 06:00 03/16/17 06:00 PT 15.6 Seconds (9.9-11.8) H 03/16/17 06:00 INR 1.44 (0.93-1.08) H 03/16/17 06:00 APTT 44.2 Seconds (23.7-30.8) H 03/15/17 09:30 - Constitutional Appears: No Acute Distress - Respiratory Exam Respiratory Exam: Chest Wall Tenderness, Rhonchi, NORMAL BREATHING PATTERN. absent: Accessory Muscle Use - Cardiovascular Exam Cardiovascular Exam: Tachycardia, +S1, +S2 - GI/Abdominal Exam GI & Abdominal Exam: Soft, Normal Bowel Sounds. absent: Tenderness - Extremities Exam Extremities Exam: Pedal Edema - Neurological Exam Neurological Exam: Awake, Oriented x3 - Psychiatric Exam Psychiatric exam: Normal Affect - Skin Skin Exam: Normal Color, Warm Assessment and Plan - Assessment and Plan (Free Text) Assessment: 46F w/ complicated hemothorax POD 1 s/p Right CT placement Plan: leukocytosis trending downard Pleural fluid + for WBC and RBC. awaiting cultures R CT to continuous suction monitor H/H mointor CT output Daily CXR Pain control continue ICU management
[2017-03-16] MEDS: Insulin Lispro (HUMAlog) HIGH Coverage SC SCH ×4 (08:18→22:30)
--- NOTE | 2017-03-16 08:28 | RAD ---
HISTORY: chest tube COMPARISON: 03/15/2017 FINDINGS: LUNGS: There is a diffuse hazy infiltrate in the right lung. Part of this may be due to layering of a pleural effusion. Chest tube tip in right upper lobe PLEURA: No significant pleural effusion identified, no pneumothorax apparent. CARDIOVASCULAR: Normal. OSSEOUS STRUCTURES: No significant abnormalities. VISUALIZED UPPER ABDOMEN: Normal. OTHER FINDINGS: None. IMPRESSION: There is a diffuse hazy infiltrate in the right lung. Part of this may be due to layering of a pleural effusion. Chest tube tip in right upper lobe
--- NOTE | 2017-03-16 08:59 | CARD ---
APPROVED REPORT EXAM: Two-dimensional and M-mode echocardiogram with Doppler and color Doppler. Other Information Quality : AverageRhythm : INDICATION Thrombus 2D DIMENSIONS Left Atrium (2D)4.5 (1.6-4.0cm)IVSd1.2 (0.7-1.1cm) LVDd5.1 (3.9-5.9cm)PWd1.1 (0.7-1.1cm) LVDs4.8 (2.5-4.0cm)FS (%) 6.7 % PWs0.8 (0.8-1.2cm)LVEF (%)20.0 (>50%) M-Mode DIMENSIONS Aortic Root2.50 (2.2-3.7cm)Aortic Cusp Exc.1.50 (1.5-2.0cm) Aortic Valve AoV Peak Oeplsatu288.0cm/s Mitral Valve E/A ratio0.0 TDI E/Lateral E'0.0E/Medial E'0.0 Tricuspid Valve TR Peak [id number] Peak Gr.44mmHg [id number] LEFT VENTRICLE The left ventricle is normal size. There is normal left ventricular wall thickness. Left ventricle systolic function is severely impaired. The Ejection Fraction is 15 - 20% There is severe global hypokinesis. No LV thrombus seen. RIGHT VENTRICLE The right ventricle is moderately dilated. ATRIA The left atrium is moderately dilated. The right atrium size is normal. The interatrial septum is intact with no evidence for an atrial septal defect. AORTIC VALVE The aortic valve is mildly calcified. MITRAL VALVE The mitral valve is normal in structure. Mitral regurgitation is mild to moderate. TRICUSPID VALVE The tricuspid valve is normal in structure. There is mild to moderate tricuspid regurgitation. There is moderate-severe pulmonary hypertension. PULMONIC VALVE The pulmonic valve is not well visualized. GREAT VESSELS The aortic root is normal in size. PERICARDIAL EFFUSION There is no pericardial effusion. <Conclusion> The left ventricle is normal size. There is normal left ventricular wall thickness. Left ventricle systolic function is severely impaired. The Ejection Fraction is 15 - 20% There is severe global hypokinesis. No LV thrombus seen. Mitral regurgitation is mild to moderate. There is mild to moderate tricuspid regurgitation. There is moderate-severe pulmonary hypertension.
--- NOTE | 2017-03-16 09:06 | CP.PCM.PN ---
Subjective - Date & Time of Evaluation Date of Evaluation: 03/16/17 Time of Evaluation: 07:00 - Subjective Subjective: Feels better less SOB Objective - Vital Signs/Intake and Output Vital Signs (last 24 hours): Temp Pulse Resp BP Pulse Ox 98.8 F 114 H 24 143/82 99 03/16/17 07:57 03/16/17 07:57 03/16/17 07:57 03/16/17 07:00 03/16/17 07:57 Intake and Output: 03/16/17 03/16/17 06:59 18:59 Intake Total 1065 Output Total 860 Balance 205 - Medications Medications: Current Medications Acetaminophen (Tylenol 325mg Tab) 650 mg PO Q4H PRN PRN Reason: Fever >100.4 F Last Admin: 03/16/17 07:46 Dose: 650 mg Albuterol/Ipratropium (Duoneb 3 Mg/0.5 Mg (3 Ml) Ud) 3 ml IH Q2H PRN PRN Reason: Shortness of Breath Digoxin (Lanoxin) 0.25 mg PO 1400 [facility] Furosemide (Lasix) 40 mg IV DAILY [facility] Vancomycin HCl (Vancomycin 1gm) 1 gm in 250 mls @ 167 mls/hr IVPB Q12 [facility] PRN Reason: Protocol Last Admin: 03/15/17 21:18 Dose: 167 mls/hr Milrinone Lactate/Dextrose (Primacor 20mg/100ml D5w) 100 mls @ 7.103 mls/hr IV .Q14H5M PRN; Protocol; 0.2 MCG/KG/MIN PRN Reason: TITRATE PER MD ORDER Last Admin: 03/15/17 20:42 Dose: 0.2 mcg/kg/min, 7.103 mls/hr Insulin Detemir (Levemir) 6 unit SC HS [facility] Last Admin: 03/15/17 21:32 Dose: 6 unit Insulin Human Lispro (Humalog High) 0 units SC ACHS [facility] PRN Reason: Protocol Last Admin: 03/16/17 08:18 Dose: 4 units Morphine Sulfate (Morphine) 4 mg IVP Q4H PRN PRN Reason: Pain, moderate (4-7) Last Admin: 03/16/17 02:08 Dose: 4 mg Ondansetron HCl (Zofran Inj) 4 mg IVP Q6H PRN PRN Reason: Nausea/Vomiting Pantoprazole Sodium (Protonix Inj) 40 mg IVP BID [facility] Last Admin: 03/15/17 17:37 Dose: 40 mg Verapamil HCl (Calan Tab) 40 mg PO TID [facility] - Labs Labs: 03/16/17 06:00 03/16/17 06:00 PT 15.6 Seconds (9.9-11.8) H 03/16/17 06:00 INR 1.44 (0.93-1.08) H 03/16/17 06:00 APTT 44.2 Seconds (23.7-30.8) H 03/15/17 09:30 - Constitutional Appears: Well - Head Exam Head Exam: ATRAUMATIC, NORMAL INSPECTION - Eye Exam Eye Exam: Conjunctival injection, EOMI - ENT Exam ENT Exam: Mucous Membranes Dry - Neck Exam Neck Exam: Full ROM - Respiratory Exam Respiratory Exam: Accessory Muscle Use, Chest Wall Tenderness Additional comments: Decrease Air entry at bases R>l - Cardiovascular Exam Cardiovascular Exam: Tachycardia - GI/Abdominal Exam GI & Abdominal Exam: Soft - Rectal Exam Rectal Exam: Deferred - Skin Skin Exam: Intact Assessment and Plan - Assessment and Plan (Free Text) Assessment: decompensated CHF Non Ischemic CMP EF-15% Large right pleural Effusion S/p Chest tube S tach ... multifactorial CHF, anemia, Chest tube, pain morbid obesity Had 1 liter diuresis ..over12 hours Plan: Dig/ Diuretics/ EITAN/ Coreg Verapamil to control Herat rate restart oral anti coag till chest tube is Dc'ed ,interim Lovenox as bridge continue primacor
[2017-03-16] MEDS ORDERED: Digoxin 500 mcg/2ml (0.5 mg/2ml) Inj IVP ONE (09:11)
--- NOTE | 2017-03-16 09:26 | CP.PCM.PN ---
<Cierra Haro - Last Filed: 03/16/17 14:55> Subjective - Date & Time of Evaluation Date of Evaluation: 03/16/17 Time of Evaluation: 09:17 - Subjective Subjective: Patient complains of left sided headache. She does have a history of migraines. She states she did not sleep well last night and that her chest wall pain is controlled on current regiment. Objective - Vital Signs/Intake and Output Vital Signs (last 24 hours): Temp Pulse Resp BP Pulse Ox 98.8 F 114 H 24 143/82 99 03/16/17 07:57 03/16/17 07:57 03/16/17 07:57 03/16/17 07:00 03/16/17 07:57 Intake and Output: 03/16/17 03/16/17 06:59 18:59 Intake Total 1065 Output Total 860 Balance 205 - Medications Medications: Current Medications Acetaminophen (Tylenol 325mg Tab) 650 mg PO Q4H PRN PRN Reason: Fever >100.4 F Last Admin: 03/16/17 07:46 Dose: 650 mg Albuterol/Ipratropium (Duoneb 3 Mg/0.5 Mg (3 Ml) Ud) 3 ml IH Q2H PRN PRN Reason: Shortness of Breath Carvedilol (Coreg) 3.125 mg PO BID [facility] Digoxin (Lanoxin) 0.25 mg PO 1400 [facility] Digoxin (Lanoxin) 0.25 mg IVP ONCE ONE Stop: 03/16/17 09:12 Furosemide (Lasix) 40 mg IV 0800,1400 [facility] Furosemide (Lasix) 40 mg IV ONCE ONE Stop: 03/16/17 09:08 Vancomycin HCl (Vancomycin 1gm) 1 gm in 250 mls @ 167 mls/hr IVPB Q12 [facility] PRN Reason: Protocol Last Admin: 03/15/17 21:18 Dose: 167 mls/hr Milrinone Lactate/Dextrose (Primacor 20mg/100ml D5w) 100 mls @ 7.103 mls/hr IV .Q14H5M PRN; Protocol; 0.2 MCG/KG/MIN PRN Reason: TITRATE PER MD ORDER Last Admin: 03/15/17 20:42 Dose: 0.2 mcg/kg/min, 7.103 mls/hr Insulin Detemir (Levemir) 6 unit SC HS [facility] Last Admin: 03/15/17 21:32 Dose: 6 unit Insulin Human Lispro (Humalog High) 0 units SC ACHS [facility] PRN Reason: Protocol Last Admin: 03/16/17 08:18 Dose: 4 units Lisinopril (Zestril) 2.5 mg PO DAILY [facility] Morphine Sulfate (Morphine) 4 mg IVP Q4H PRN PRN Reason: Pain, moderate (4-7) Last Admin: 03/16/17 02:08 Dose: 4 mg Ondansetron HCl (Zofran Inj) 4 mg IVP Q6H PRN PRN Reason: Nausea/Vomiting Pantoprazole Sodium (Protonix Inj) 40 mg IVP BID [facility] Last Admin: 03/15/17 17:37 Dose: 40 mg Spironolactone (Aldactone) 25 mg PO BID [facility] Verapamil HCl (Calan Tab) 40 mg PO TID [facility] - Labs Labs: 03/16/17 06:00 03/16/17 06:00 PT 15.6 Seconds (9.9-11.8) H 03/16/17 06:00 INR 1.44 (0.93-1.08) H 03/16/17 06:00 APTT 44.2 Seconds (23.7-30.8) H 03/15/17 09:30 - Constitutional Appears: No Acute Distress - Head Exam Head Exam: ATRAUMATIC, NORMOCEPHALIC - Cardiovascular Exam Cardiovascular Exam: Tachycardia, REGULAR RHYTHM, JVD - GI/Abdominal Exam GI & Abdominal Exam: Soft, Normal Bowel Sounds - Rectal Exam Rectal Exam: Deferred - Extremities Exam Extremities Exam: Tenderness - Neurological Exam Neurological Exam: Alert, Awake, Oriented x3 - Psychiatric Exam Psychiatric exam: Normal Affect, Normal Mood - Skin Additional comments: good skin turgor, no tenting Assessment and Plan - Assessment and Plan (Free Text) Assessment: 46 yo female admitted to the ICU for acute respiratory distress, anemia, and a supratherapeutic INR. She has a history of SLE, DM, morbid obesity, Dilated Cardiomyopathy of unknown etiology with an EF of 15% and a recently identified LV thrombus for which she was taking Coumadin. Diagnostic tests revealed a large, right sided pleural effusion, leukocytosis, and anemia. Given her acute respiratory distress and critical condition she was admitted to the ICU. Plan: Neurologic: Patient is stable, alert, and oriented. Cardiovascular: Echocardiogram revealed EF of 10-15, no LV thrombus, and pulmonary hypertension. Percussion Instructor has started the medical treatment for Severe systolic HF:Carvedilol, Spirinolactone, Lisinopril, and patient already has an external defibrillator (Life Vest). Other treatments have also been added , please refer to Dr. Allan's note. Respiratory: Diagnostic/therapeutic chest tube placed, will need to arrange for a VATS (Video Assisted Thorocoscopic Surgery). Patient is maintaining good oxygen saturations with 2L Nasal Cannula. ABG and CXR will be performed in the morning. GI: Therapeutic dose PPI (Pantoprazole 40 mg, BID) given hemooccult positive stools. H&H will be followed. Rheumatology: Work up pending for autoimmune disorders. ID: ID was consulted, please see Dr. Tmepleton's note for details. Hematology: Hgb of 9.3. INR wnl. Endocrine: Placed on 6 units night time Levemir, and lispro medium sliding scale protocol. Fingerstick blood glucose will be checked before meals and at bedtime ([facility]). Will need to readdress this, and discuss with medical team. : Hematuria, proteinuria, likely secondary to supratherapeutic INR, and her underlying(s) autoimmune disease(s). Psychiatric: Difficulty sleeping, will consider a medical intervention, if appropriate. Cierra Haro, PGY-1 Beeper #[phone] <Abe Mike B - Last Filed: 03/16/17 16:49> Objective - Vital Signs/Intake and Output Vital Signs (last 24 hours): Temp Pulse Resp BP Pulse Ox 98 F 98 H 22 101/42 L 99 03/16/17 16:00 03/16/17 16:00 03/16/17 16:00 03/16/17 16:00 03/16/17 16:00 Intake and Output: 03/16/17 03/16/17 06:59 18:59 Intake Total 1065 100 Output Total 860 1200 Balance 205 -1100 - Medications Medications: Current Medications Acetaminophen (Tylenol 325mg Tab) 650 mg PO Q4H PRN PRN Reason: Fever >100.4 F Last Admin: 03/16/17 07:46 Dose: 650 mg Albuterol/Ipratropium (Duoneb 3 Mg/0.5 Mg (3 Ml) Ud) 3 ml IH Q2H PRN PRN Reason: Shortness of Breath Carvedilol (Coreg) 3.125 mg PO BID [facility] Last Admin: 03/16/17 09:40 Dose: 3.125 mg Digoxin (Lanoxin) 0.25 mg PO 1400 [facility] Last Admin: 03/16/17 13:57 Dose: 0.25 mg Enoxaparin Sodium (Lovenox) 40 mg SC DAILY [facility] PRN Reason: Protocol Last Admin: 03/16/17 10:40 Dose: 40 mg Furosemide (Lasix) 40 mg IV 0800,1400 [facility] Vancomycin HCl (Vancomycin 1gm) 1 gm in 250 mls @ 167 mls/hr IVPB Q12 [facility] PRN Reason: Protocol Last Admin: 03/16/17 09:42 Dose: 167 mls/hr Milrinone Lactate/Dextrose (Primacor 20mg/100ml D5w) 100 mls @ 7.103 mls/hr IV .Q14H5M PRN; Protocol; 0.2 MCG/KG/MIN PRN Reason: TITRATE PER MD ORDER Last Admin: 03/16/17 12:09 Dose: 0.2 mcg/kg/min, 7.103 mls/hr Cefepime HCl (Maxipime 2gm) 2 gm in 100 mls @ 100 mls/hr IVPB Q8 [facility] PRN Reason: Protocol Stop: 03/21/17 14:01 Last Admin: 03/16/17 13:58 Dose: 100 mls/hr Doxycycline Hyclate 100 mg/ (Sodium Chloride) 100 mls @ 100 mls/hr IVPB Q12 [facility] PRN Reason: Protocol Insulin Detemir (Levemir) 6 unit SC HS [facility] Last Admin: 03/15/17 21:32 Dose: 6 unit Insulin Human Lispro (Humalog High) 0 units SC ACHS [facility] PRN Reason: Protocol Last Admin: 03/16/17 12:14 Dose: 10 units Lisinopril (Zestril) 2.5 mg PO DAILY [facility] Last Admin: 03/16/17 09:41 Dose: 2.5 mg Morphine Sulfate (Morphine) 4 mg IVP Q4H PRN PRN Reason: Pain, moderate (4-7) Last Admin: 03/16/17 10:38 Dose: 4 mg Ondansetron HCl (Zofran Inj) 4 mg IVP Q6H PRN PRN Reason: Nausea/Vomiting Pantoprazole Sodium (Protonix Inj) 40 mg IVP BID [facility] Last Admin: 03/16/17 09:48 Dose: 40 mg Spironolactone (Aldactone) 25 mg PO BID [facility] Last Admin: 03/16/17 09:39 Dose: 25 mg Verapamil HCl (Calan Tab) 40 mg PO TID [facility] Last Admin: 03/16/17 13:56 Dose: 40 mg - Labs Labs: 03/16/17 06:00 03/16/17 06:00 PT 15.6 Seconds (9.9-11.8) H 03/16/17 06:00 INR 1.44 (0.93-1.08) H 03/16/17 06:00 APTT 44.2 Seconds (23.7-30.8) H 03/15/17 09:30 Attending/Attestation - Attestation I have personally seen and examined this patient.: Yes I have fully participated in the care of the patient.: Yes I have reviewed all pertinent clinical information, including history, physical exam and plan: Yes Notes (Text): 03/16/17 16:44 46 yo with severe dilated cardiomyopathy with severe LV systolic dysfunction, who presented this time with empyema vs hemothorax in the setting of iatrogenic coagulopathy. Chest tube was placed, coagulopathy reversed. Patient subjectively improved substantially. Also, hemodynamically and respiratory hardy stable. General surgery is following-->will employ help from thoracic surgery, Dr. Canales. Meanwhile abx, septic work up and chest tube. CT: 100 cc over last 12 hrs-david blood. Echo: no intracranial thrombus, EF 15%. will hold AC for now. Risks and benefits discussed with cardiology service. Continue with bb, acei, spironolactone. I would defer decision about inotropic support to cardiology service. GI prophylaxis ccm time 40 min
[2017-03-16] MEDS: Vancomycin 1gm in NS 250ml 1 GM/250 ML BAG IVPB SCH ×2 (09:42→22:42)
--- NOTE | 2017-03-16 10:13 | CP.PCM.PN ---
Subjective - Date & Time of Evaluation Date of Evaluation: 03/16/17 Time of Evaluation: 09:50 - Subjective Subjective: Noted patient to have undergone chest tube placement on the right yesterday. Patient is feeling better, no fevers overnight, breathing better, less pain on the right chest. Objective - Vital Signs/Intake and Output Vital Signs (last 24 hours): Temp Pulse Resp BP Pulse Ox 98 F 108 H 25 H 135/88 99 03/16/17 04:00 03/16/17 01:47 03/16/17 01:47 03/16/17 01:47 03/15/17 18:20 Intake and Output: 03/15/17 03/16/17 18:59 06:59 Intake Total 1494 1065 Output Total 2790 750 Balance -1296 315 - Medications Medications: Current Medications Acetaminophen (Tylenol 325mg Tab) 650 mg PO Q4H PRN PRN Reason: Fever >100.4 F Albuterol/Ipratropium (Duoneb 3 Mg/0.5 Mg (3 Ml) Ud) 3 ml IH Q2H PRN PRN Reason: Shortness of Breath Digoxin (Lanoxin) 0.25 mg PO 1400 [facility] Furosemide (Lasix) 40 mg IV DAILY [facility] Vancomycin HCl (Vancomycin 1gm) 1 gm in 250 mls @ 167 mls/hr IVPB Q12 [facility] PRN Reason: Protocol Last Admin: 03/15/17 21:18 Dose: 167 mls/hr Milrinone Lactate/Dextrose (Primacor 20mg/100ml D5w) 100 mls @ 7.103 mls/hr IV .Q14H5M PRN; Protocol; 0.2 MCG/KG/MIN PRN Reason: TITRATE PER MD ORDER Last Admin: 03/15/17 20:42 Dose: 0.2 mcg/kg/min, 7.103 mls/hr Meropenem 1g/NS 100mL IVPB (Meropenem 1g/Ns 100ml Ivpb) 1 gm in 100 mls @ 100 mls/hr IVPB Q8 [facility] PRN Reason: Protocol Stop: 03/16/17 06:59 Last Admin: 03/16/17 05:59 Dose: 100 mls/hr Insulin Detemir (Levemir) 6 unit SC HS [facility] Last Admin: 03/15/17 21:32 Dose: 6 unit Insulin Human Lispro (Humalog High) 0 units SC ACHS [facility] PRN Reason: Protocol Last Admin: 03/15/17 21:37 Dose: Not Given Morphine Sulfate (Morphine) 4 mg IVP Q4H PRN PRN Reason: Pain, moderate (4-7) Last Admin: 03/16/17 02:08 Dose: 4 mg Ondansetron HCl (Zofran Inj) 4 mg IVP Q6H PRN PRN Reason: Nausea/Vomiting Pantoprazole Sodium (Protonix Inj) 40 mg IVP BID [facility] Last Admin: 03/15/17 17:37 Dose: 40 mg Verapamil HCl (Calan Tab) 40 mg PO TID [facility] - Labs Labs: 03/15/17 21:00 03/15/17 09:30 PT 14.7 Seconds (9.9-11.8) H 03/15/17 18:05 INR 1.36 (0.93-1.08) H 03/15/17 18:05 APTT 44.2 Seconds (23.7-30.8) H 03/15/17 09:30 - Constitutional Appears: Non-toxic, No Acute Distress - Head Exam Head Exam: NORMAL INSPECTION - Neck Exam Neck Exam: absent: Lymphadenopathy, Meningismus - Respiratory Exam Respiratory Exam: Decreased Breath Sounds Additional comments: right chest tube in place with serosanguinous fluid - Cardiovascular Exam Cardiovascular Exam: +S1, +S2 - GI/Abdominal Exam GI & Abdominal Exam: Soft. absent: Tenderness Assessment and Plan - Assessment and Plan (Free Text) Plan: Assessment Systemic Inflammatory Response Syndrome, consider due to right sided pleural effusion, etiology to be determined, rule out healthcare-associated pneumonia S/ P chest tube placement POD #1 systemic lupus erythematosus morbid obesity with BMI 41 DM asthma history of migraine headaches history of spinal stenosis history of ectopic Plan continue Levaquin, Vancomycin and Cefepime pending final blood cx, pleural fluid analysis and cultures; PCT is only 0.18; reviewed CT chest will continue to monitor clinically
[2017-03-16] MEDS: Enoxaparin 40 mg Syringe SC SCH (10:40)
[2017-03-16] MEDS: Milrinone 20mg/100ml D5W 100 ML IV PRN (12:09)
[2017-03-16] MEDS: Digoxin 250 mcg (0.25 mg) Tab PO SCH (13:57)
[2017-03-16] MEDS: Cefepime IV 2 gm in NS 2 GM/100 ML BAG IVPB SCH ×2 (13:58→22:44)
--- NOTE | 2017-03-16 18:53 | CP.PCM.PN ---
<ТАТЬЯНА METCALF - Last Filed: 03/16/17 18:49> Subjective - Date & Time of Evaluation Date of Evaluation: 03/16/17 Time of Evaluation: 09:30 - Subjective Subjective: 46 yo F was seen and examined at bedside. Pt denies any acute overnight events. Pt is s/p chest tube placement for hemothorax. Pt states that her SOB has improved, but reports some soreness on her chest at the site of her chest tube. Pt denies n/v/f, CP, dizziness. Objective - Vital Signs/Intake and Output Vital Signs (last 24 hours): Temp Pulse Resp BP Pulse Ox 98 F 105 H 40 H 108/72 97 03/16/17 16:00 03/16/17 17:58 03/16/17 17:50 03/16/17 17:31 03/16/17 17:50 Intake and Output: 03/16/17 03/16/17 06:59 18:59 Intake Total 1065 1395 Output Total 860 1240 Balance 205 155 - Medications Medications: Current Medications Acetaminophen (Tylenol 325mg Tab) 650 mg PO Q4H PRN PRN Reason: Fever >100.4 F Last Admin: 03/16/17 07:46 Dose: 650 mg Albuterol/Ipratropium (Duoneb 3 Mg/0.5 Mg (3 Ml) Ud) 3 ml IH Q2H PRN PRN Reason: Shortness of Breath Carvedilol (Coreg) 3.125 mg PO BID [facility] Last Admin: 03/16/17 09:40 Dose: 3.125 mg Digoxin (Lanoxin) 0.25 mg PO 1400 [facility] Last Admin: 03/16/17 13:57 Dose: 0.25 mg Enoxaparin Sodium (Lovenox) 40 mg SC DAILY [facility] PRN Reason: Protocol Last Admin: 03/16/17 10:40 Dose: 40 mg Furosemide (Lasix) 40 mg IV 0800,1400 [facility] Last Admin: 03/16/17 16:46 Dose: 40 mg Vancomycin HCl (Vancomycin 1gm) 1 gm in 250 mls @ 167 mls/hr IVPB Q12 [facility] PRN Reason: Protocol Last Admin: 03/16/17 09:42 Dose: 167 mls/hr Milrinone Lactate/Dextrose (Primacor 20mg/100ml D5w) 100 mls @ 7.103 mls/hr IV .Q14H5M PRN; Protocol; 0.2 MCG/KG/MIN PRN Reason: TITRATE PER MD ORDER Last Admin: 03/16/17 12:09 Dose: 0.2 mcg/kg/min, 7.103 mls/hr Cefepime HCl (Maxipime 2gm) 2 gm in 100 mls @ 100 mls/hr IVPB Q8 [facility] PRN Reason: Protocol Stop: 03/21/17 14:01 Last Admin: 03/16/17 13:58 Dose: 100 mls/hr Doxycycline Hyclate 100 mg/ (Sodium Chloride) 100 mls @ 100 mls/hr IVPB Q12 [facility] PRN Reason: Protocol Insulin Detemir (Levemir) 6 unit SC HS [facility] Last Admin: 03/15/17 21:32 Dose: 6 unit Insulin Human Lispro (Humalog High) 0 units SC ACHS [facility] PRN Reason: Protocol Last Admin: 03/16/17 16:47 Dose: 4 units Lisinopril (Zestril) 2.5 mg PO DAILY [facility] Last Admin: 03/16/17 09:41 Dose: 2.5 mg Morphine Sulfate (Morphine) 4 mg IVP Q4H PRN PRN Reason: Pain, moderate (4-7) Last Admin: 03/16/17 10:38 Dose: 4 mg Ondansetron HCl (Zofran Inj) 4 mg IVP Q6H PRN PRN Reason: Nausea/Vomiting Pantoprazole Sodium (Protonix Inj) 40 mg IVP BID [facility] Last Admin: 03/16/17 17:59 Dose: 40 mg Spironolactone (Aldactone) 25 mg PO BID [facility] Last Admin: 03/16/17 18:00 Dose: 25 mg Verapamil HCl (Calan Tab) 40 mg PO TID [facility] Last Admin: 03/16/17 13:56 Dose: 40 mg - Labs Labs: 03/16/17 06:00 03/16/17 06:00 PT 15.6 Seconds (9.9-11.8) H 03/16/17 06:00 INR 1.44 (0.93-1.08) H 03/16/17 06:00 APTT 44.2 Seconds (23.7-30.8) H 03/15/17 09:30 - Head Exam Head Exam: ATRAUMATIC, NORMAL INSPECTION - Eye Exam Eye Exam: EOMI, Normal appearance, PERRL - ENT Exam ENT Exam: Mucous Membranes Moist - Neck Exam Neck Exam: Full ROM - Respiratory Exam Respiratory Exam: absent: Rales, Rhonchi, Wheezes Additional comments: Decreased breath sounds on the right - Cardiovascular Exam Cardiovascular Exam: RRR, +S1, +S2. absent: Gallop, Rubs, Murmur - GI/Abdominal Exam GI & Abdominal Exam: Soft, Tenderness. absent: Firm, Guarding, Rigid - Skin Skin Exam: Dry, Intact, Normal Color, Warm Assessment and Plan - Assessment and Plan (Free Text) Assessment: 46 yo with severe dilated cardiomyopathy with severe LV systolic dysfunction admitted to the ICU for acute respiratory distress, anemia, and a supratherapeutic INR 1. Empyema vs. Hemothorax, acute respiratory distress -Consulted surgery for right chest tube placement, monitor output -F/u pleural fluid cultures -Cont. Cefepime, vancomycin per ID recommendations -Cont. Duoneb prn -Cont. Lasix, spironolactone 2. Dilated cardiomyopathy with severe LV systolic dysfunction -Echo revealed no LV thrombus, EF 15% -Will discuss with cardiology about anticoagulation and possible EP evaluation -Watch INR -Cont Lisinopril, Carvedilol, digoxin, verapamil 3. Left leg pain -Extremity US negative for DVT -Morphine 4q4 prn 4. Insulin dependent diabetes mellitus -Levemir 6 units --> 10 units -Humalog ISS 5. GI/DVT PPx -Protonix -Lovenox The patient was seen and discussed in detail with Dr. Martins. <Rob Martins - Last Filed: 03/17/17 09:12> Objective - Vital Signs/Intake and Output Vital Signs (last 24 hours): Temp Pulse Resp BP Pulse Ox 99.8 F H 103 H 23 103/61 100 03/17/17 06:40 03/17/17 09:02 03/17/17 07:30 03/17/17 08:44 03/17/17 07:30 Intake and Output: 03/17/17 03/17/17 06:59 18:59 Intake Total 1535 Output Total 790 Balance 745 - Medications Medications: Current Medications Acetaminophen (Tylenol 325mg Tab) 650 mg PO Q4H PRN PRN Reason: Fever >100.4 F Last Admin: 03/17/17 06:40 Dose: 650 mg Albuterol/Ipratropium (Duoneb 3 Mg/0.5 Mg (3 Ml) Ud) 3 ml IH Q2H PRN PRN Reason: Shortness of Breath Carvedilol (Coreg) 3.125 mg PO BID [facility] Last Admin: 03/17/17 09:02 Dose: 3.125 mg Digoxin (Lanoxin) 0.25 mg PO 1400 [facility] Last Admin: 03/16/17 13:57 Dose: 0.25 mg Enoxaparin Sodium (Lovenox) 40 mg SC DAILY [facility] PRN Reason: Protocol Last Admin: 03/17/17 09:03 Dose: 40 mg Furosemide (Lasix) 40 mg IV 0800,1400 [facility] Last Admin: 03/17/17 08:44 Dose: 40 mg Vancomycin HCl (Vancomycin 1gm) 1 gm in 250 mls @ 167 mls/hr IVPB Q12 [facility] PRN Reason: Protocol Last Admin: 03/16/17 22:42 Dose: 167 mls/hr Milrinone Lactate/Dextrose (Primacor 20mg/100ml D5w) 100 mls @ 7.103 mls/hr IV .Q14H5M PRN; Protocol; 0.2 MCG/KG/MIN PRN Reason: TITRATE PER MD ORDER Last Admin: 03/17/17 00:15 Dose: 0.2 mcg/kg/min, 7.103 mls/hr Doxycycline Hyclate 100 mg/ (Sodium Chloride) 100 mls @ 100 mls/hr IVPB Q12 [facility] PRN Reason: Protocol Last Admin: 03/16/17 23:40 Dose: 100 mls/hr Meropenem 1g/NS 100mL IVPB (Meropenem 1g/Ns 100ml Ivpb) 1 gm in 100 mls @ 100 mls/hr IVPB Q8 [facility] PRN Reason: Protocol Stop: 03/24/17 06:01 Last Admin: 03/17/17 06:35 Dose: 100 mls/hr Insulin Detemir (Levemir) 10 unit SC HS [facility] Last Admin: 03/16/17 22:43 Dose: 10 unit Insulin Human Lispro (Humalog High) 0 units SC ACHS [facility] PRN Reason: Protocol Last Admin: 03/17/17 08:20 Dose: Not Given Lisinopril (Zestril) 2.5 mg PO DAILY [facility] Last Admin: 03/16/17 09:41 Dose: 2.5 mg Magnesium Oxide (Mag-Ox) 400 mg PO BID [facility] Stop: 03/18/17 23:59 Last Admin: 03/17/17 09:02 Dose: 400 mg Morphine Sulfate (Morphine) 4 mg IVP Q4H PRN PRN Reason: Pain, moderate (4-7) Last Admin: 03/17/17 06:46 Dose: 4 mg Ondansetron HCl (Zofran Inj) 4 mg IVP Q6H PRN PRN Reason: Nausea/Vomiting Pantoprazole Sodium (Protonix Inj) 40 mg IVP BID [facility] Last Admin: 03/17/17 09:03 Dose: 40 mg Potassium Phos/Sodium Phos (Neutra-Phos) 1 pkt PO TID [facility] Stop: 03/18/17 23:00 Last Admin: 03/17/17 09:02 Dose: 1 pkt Spironolactone (Aldactone) 25 mg PO BID [facility] Last Admin: 03/17/17 09:02 Dose: 25 mg Verapamil HCl (Calan Tab) 40 mg PO TID [facility] Last Admin: 03/17/17 09:02 Dose: 40 mg - Labs Labs: 03/17/17 05:50 03/17/17 05:50 PT 15.6 Seconds (9.9-11.8) H 03/16/17 06:00 INR 1.44 (0.93-1.08) H 03/16/17 06:00 APTT 44.2 Seconds (23.7-30.8) H 03/15/17 09:30 Attending/Attestation - Attestation I have personally seen and examined this patient.: Yes I have fully participated in the care of the patient.: Yes I have reviewed all pertinent clinical information, including history, physical exam and plan: Yes Notes (Text): 03/16/17 46 year old female with past medical history of cardiac thrombus, dilated cardiomyopathy and diabetes who presented with sepsis and respiratory distress. She was found to have large right pleural effusion and supratherapeutic INR. She is s/p chest tube. Continue with chest tube care as per surgery and waste hand. She is on iv antibiotics as per ID. INR has improved. Coumadin is currently on hold. Repeat echocardiogram was reviewed; no cardiac thrombus was seen. Cardiology is following and she is on primacor. She is on levemir and insulin ss for diabetes. Rob Martins MD Hospitalist.
[2017-03-16 20:24] LABS: PROTEINASE-3 <1.0 AI (<1.0)
[2017-03-16] MEDS: Insulin Detemir 100 units/ml Vial (Levemir) SC SCH (22:43)
[2017-03-17] MEDS: Morphine 4 mg/ml ISec IVP PRN ×5 (00:03→21:41)
[2017-03-17] MEDS: Milrinone 20mg/100ml D5W 100 ML IV PRN ×2 (00:15→13:06)
[2017-03-17] MEDS: Meropenem 1g/NS 100mL IVPB 1 GM/100 ML PIGGYBACK IVPB SCH ×3 (06:35→22:25)
[2017-03-17 06:47] LABS: ALB/GLOB RATIO 0.8 (1.1-1.8); ALBUMIN 2.9 g/dL (3.0-4.8); ALT/SGPT 37 U/L (7-56); AST/SGOT 62 U/L (15-39); BASO # 0.03 K/mm3 (0.0-2.0); BASO % 0.2 % (0.0-3.0); BLOOD UREA NITROGEN 17 mg/dL (7-21); CALCIUM 8.2 mg/dL (8.4-10.5); EOS # 0.4 (0.0-0.7); EOS % 2.6 % (1.5-5.0); GFR AFRICAN-AMERICAN > 60; GFR NON-AFRICAN AMERICAN > 60; GRAN % 65.1 % (50.0-68.0); HEMOGLOBIN 8.7 gm/dL (12.0-16.0); LYMPH # 3.4 (1.2-3.4); LYMPH % 23.9 % (22.0-35.0); MAGNESIUM 1.9 mg/dL (1.7-2.2); MEAN CELL VOLUME 77.7 fL (80.0-105.0); MEAN CORPUSCULAR HEMOGLOBIN 24.3 pg (25.0-35.0); MEAN CORPUSCULAR HGB CONC 31.3 g/dl (31.0-37.0); MEAN PLATELET VOLUME 8.9 fl (7.0-11.0); MONO # 1.2 (0.1-0.6); MONO % 8.2 % (1.0-6.0); PLATELET COUNT 452 10^3/uL (120.0-450.0); RBC 3.58 10^6/uL (3.5-6.1); RED CELL DISTRIBUTION WIDTH 16.9 % (11.5-14.5)
--- NOTE | 2017-03-17 07:42 | CP.PCM.PN ---
<Cierra Haro - Last Filed: 03/17/17 16:50> Subjective - Date & Time of Evaluation Date of Evaluation: 03/17/17 Time of Evaluation: 07:40 - Subjective Subjective: Patient seen and examined at bedside. Nurse reports that 290 cc of sanguinous fluid drained overnight. Patient denies dyspnea, headache, but admits to fever. Objective - Vital Signs/Intake and Output Vital Signs (last 24 hours): Temp Pulse Resp BP Pulse Ox 99.8 F H 98 H 23 112/69 100 03/17/17 06:40 03/17/17 07:30 03/17/17 07:30 03/17/17 07:04 03/17/17 07:30 Intake and Output: 03/17/17 03/17/17 06:59 18:59 Intake Total 1535 Output Total 790 Balance 745 - Medications Medications: Current Medications Acetaminophen (Tylenol 325mg Tab) 650 mg PO Q4H PRN PRN Reason: Fever >100.4 F Last Admin: 03/17/17 06:40 Dose: 650 mg Albuterol/Ipratropium (Duoneb 3 Mg/0.5 Mg (3 Ml) Ud) 3 ml IH Q2H PRN PRN Reason: Shortness of Breath Carvedilol (Coreg) 3.125 mg PO BID [facility] Last Admin: 03/16/17 18:52 Dose: 3.125 mg Digoxin (Lanoxin) 0.25 mg PO 1400 [facility] Last Admin: 03/16/17 13:57 Dose: 0.25 mg Enoxaparin Sodium (Lovenox) 40 mg SC DAILY [facility] PRN Reason: Protocol Last Admin: 03/16/17 10:40 Dose: 40 mg Furosemide (Lasix) 40 mg IV 0800,1400 [facility] Last Admin: 03/16/17 16:46 Dose: 40 mg Vancomycin HCl (Vancomycin 1gm) 1 gm in 250 mls @ 167 mls/hr IVPB Q12 [facility] PRN Reason: Protocol Last Admin: 03/16/17 22:42 Dose: 167 mls/hr Milrinone Lactate/Dextrose (Primacor 20mg/100ml D5w) 100 mls @ 7.103 mls/hr IV .Q14H5M PRN; Protocol; 0.2 MCG/KG/MIN PRN Reason: TITRATE PER MD ORDER Last Admin: 03/17/17 00:15 Dose: 0.2 mcg/kg/min, 7.103 mls/hr Doxycycline Hyclate 100 mg/ (Sodium Chloride) 100 mls @ 100 mls/hr IVPB Q12 [facility] PRN Reason: Protocol Last Admin: 03/16/17 23:40 Dose: 100 mls/hr Meropenem 1g/NS 100mL IVPB (Meropenem 1g/Ns 100ml Ivpb) 1 gm in 100 mls @ 100 mls/hr IVPB Q8 [facility] PRN Reason: Protocol Stop: 03/24/17 06:01 Last Admin: 03/17/17 06:35 Dose: 100 mls/hr Insulin Detemir (Levemir) 10 unit SC HS [facility] Last Admin: 03/16/17 22:43 Dose: 10 unit Insulin Human Lispro (Humalog High) 0 units SC ACHS [facility] PRN Reason: Protocol Last Admin: 03/16/17 22:30 Dose: Not Given Lisinopril (Zestril) 2.5 mg PO DAILY [facility] Last Admin: 03/16/17 09:41 Dose: 2.5 mg Morphine Sulfate (Morphine) 4 mg IVP Q4H PRN PRN Reason: Pain, moderate (4-7) Last Admin: 03/17/17 06:46 Dose: 4 mg Ondansetron HCl (Zofran Inj) 4 mg IVP Q6H PRN PRN Reason: Nausea/Vomiting Pantoprazole Sodium (Protonix Inj) 40 mg IVP BID [facility] Last Admin: 03/16/17 17:59 Dose: 40 mg Spironolactone (Aldactone) 25 mg PO BID [facility] Last Admin: 03/16/17 18:00 Dose: 25 mg Verapamil HCl (Calan Tab) 40 mg PO TID [facility] Last Admin: 03/16/17 18:51 Dose: Not Given - Labs Labs: 03/17/17 05:50 03/17/17 05:50 PT 15.6 Seconds (9.9-11.8) H 03/16/17 06:00 INR 1.44 (0.93-1.08) H 03/16/17 06:00 APTT 44.2 Seconds (23.7-30.8) H 03/15/17 09:30 - Constitutional Appears: Non-toxic, In Acute Distress, Other (obese) - Head Exam Head Exam: ATRAUMATIC, NORMOCEPHALIC - Eye Exam Eye Exam: Normal appearance, PERRL. absent: Conjunctival injection - ENT Exam ENT Exam: Mucous Membranes Moist - Neck Exam Neck Exam: Normal Inspection. absent: Tenderness - Respiratory Exam Respiratory Exam: Decreased Breath Sounds (more on right side). absent: Accessory Muscle Use - Cardiovascular Exam Cardiovascular Exam: Tachycardia, +S1, +S2. absent: JVD - GI/Abdominal Exam GI & Abdominal Exam: Soft, Normal Bowel Sounds. absent: Rebound - Rectal Exam Rectal Exam: Deferred - Extremities Exam Additional comments: moves all extremities - Neurological Exam Neurological Exam: Alert, Awake, Oriented x3 - Psychiatric Exam Psychiatric exam: Normal Affect, Normal Mood - Skin Skin Exam: Normal Color Additional comments: good skin turgor, no tenting Assessment and Plan - Assessment and Plan (Free Text) Assessment: 46 yo female admitted to the ICU for acute respiratory distress, anemia, and a supratherapeutic INR. 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 Diagnostic tests revealed a large, right sided pleural effusion, leukocytosis, and anemia. Given her acute respiratory distress and critical condition she was admitted to the ICU. Plan: Neurologic: Patient is alert, orientedx3. Cardiovascular: Echocardiogram revealed EF of 10-15, no LV thrombus, and moderate pulmonary hypertension. Author'S Agent has started the medical treatment for Severe systolic HF: Carvedilol, Spirinolactone, Lisinopril, and Life Vest, though encouraged to wear, she took it off due to discomfort. ICD placement in 3 -6 months. Ionotropic and rate control agents also adminstered. Appreciate the note and the consultation. Respiratory: Chest tube drained 200 cc of sanguinous fluid overnight. There is discussion in regards to the need for VATS (Video Assisted Thorocoscopic Surgery ) or alternative drainage/therapeutic approaches to this hemothorax vs empyema. Whatever the case, the patient's not short of breath on 2L Nasal Cannula. ABG and CXR will be performed in the morning GI: Therapeutic dose PPI (Pantoprazole 40 mg, BID). Rheumatology: Work up for autoimmune disorders was unrevealing. ID: See Dr. Templeton's note, appreciate the consultation. Hematology: Prophylactic SC lovenox, I agree with this medication choice for anticoagulation due to the patient's high risk of rebleeding post- thoracentesis. We do have her out of bed and ambulating. Endocrine: Blood glucose not well controlled, consider modifying after discussing with senior resident/attending. Cierra Haro, PGY-1 Beeper #[phone] <Abe Mike - Last Filed: 03/17/17 17:57> Objective - Vital Signs/Intake and Output Vital Signs (last 24 hours): Temp Pulse Resp BP Pulse Ox 98.2 F 92 H 24 106/61 96 03/17/17 12:00 03/17/17 15:07 03/17/17 13:50 03/17/17 15:07 03/17/17 13:50 Intake and Output: 03/17/17 03/17/17 06:59 18:59 Intake Total 1535 100 Output Total 790 Balance 745 100 - Medications Medications: Current Medications Acetaminophen (Tylenol 325mg Tab) 650 mg PO Q4H PRN PRN Reason: Fever >100.4 F Last Admin: 03/17/17 06:40 Dose: 650 mg Albuterol/Ipratropium (Duoneb 3 Mg/0.5 Mg (3 Ml) Ud) 3 ml IH Q2H PRN PRN Reason: Shortness of Breath Carvedilol (Coreg) 3.125 mg PO BID [facility] Last Admin: 03/17/17 09:02 Dose: 3.125 mg Digoxin (Lanoxin) 0.25 mg PO 1400 [facility] Last Admin: 03/17/17 15:07 Dose: 0.25 mg Furosemide (Lasix) 40 mg IV 0800,1400 [facility] Last Admin: 03/17/17 14:55 Dose: 40 mg Vancomycin HCl (Vancomycin 1gm) 1 gm in 250 mls @ 167 mls/hr IVPB Q12 [facility] PRN Reason: Protocol Last Admin: 03/17/17 10:43 Dose: 167 mls/hr Milrinone Lactate/Dextrose (Primacor 20mg/100ml D5w) 100 mls @ 7.103 mls/hr IV .Q14H5M PRN; Protocol; 0.2 MCG/KG/MIN PRN Reason: TITRATE PER MD ORDER Last Admin: 03/17/17 13:06 Dose: 0.2 mcg/kg/min, 7.103 mls/hr Doxycycline Hyclate 100 mg/ (Sodium Chloride) 100 mls @ 100 mls/hr IVPB Q12 [facility] PRN Reason: Protocol Last Admin: 03/17/17 09:08 Dose: 100 mls/hr Meropenem 1g/NS 100mL IVPB (Meropenem 1g/Ns 100ml Ivpb) 1 gm in 100 mls @ 100 mls/hr IVPB Q8 [facility] PRN Reason: Protocol Stop: 03/24/17 06:01 Last Admin: 03/17/17 15:22 Dose: 100 mls/hr Heparin Sodium/Dextrose (Heparin 25,000 Units/250ml In D5w) 25,000 units in 250 mls @ 10.124 mls/hr IV .Q24H PRN; Protocol; 9 UNITS/KG/HR PRN Reason: ADJUST RATE PER PROTOCOL Insulin Detemir (Levemir) 10 unit SC HS [facility] Last Admin: 03/16/17 22:43 Dose: 10 unit Insulin Human Lispro (Humalog High) 0 units SC ACHS [facility] PRN Reason: Protocol Last Admin: 03/17/17 11:43 Dose: 1 units Lisinopril (Zestril) 2.5 mg PO DAILY [facility] Last Admin: 03/17/17 10:43 Dose: 2.5 mg Magnesium Oxide (Mag-Ox) 400 mg PO BID [facility] Stop: 03/18/17 23:59 Last Admin: 03/17/17 09:02 Dose: 400 mg Morphine Sulfate (Morphine) 4 mg IVP Q4H PRN PRN Reason: Pain, moderate (4-7) Last Admin: 03/17/17 15:39 Dose: 4 mg Ondansetron HCl (Zofran Inj) 4 mg IVP Q6H PRN PRN Reason: Nausea/Vomiting Pantoprazole Sodium (Protonix Inj) 40 mg IVP BID [facility] Last Admin: 03/17/17 09:03 Dose: 40 mg Potassium Phos/Sodium Phos (Neutra-Phos) 1 pkt PO TID [facility] Stop: 03/18/17 23:00 Last Admin: 03/17/17 15:21 Dose: 1 pkt Spironolactone (Aldactone) 25 mg PO BID [facility] Last Admin: 03/17/17 09:02 Dose: 25 mg Verapamil HCl (Calan Tab) 40 mg PO TID [facility] Last Admin: 03/17/17 15:07 Dose: 40 mg - Labs Labs: 03/17/17 05:50 03/17/17 05:50 PT 28.6 Seconds (9.9-11.8) H 03/17/17 10:40 INR 2.65 (0.93-1.08) H 03/17/17 10:40 APTT 48.6 Seconds (23.7-30.8) H 03/17/17 10:40 Attending/Attestation - Attestation I have personally seen and examined this patient.: Yes I have fully participated in the care of the patient.: Yes I have reviewed all pertinent clinical information, including history, physical exam and plan: Yes Notes (Text): 03/17/17 17:52 46 yo female with severe LV systolic dysfunction and h/o intracardiac thrombus, who presented with hemothorax, s/p chest tube, in the setting of iatrogenic coagulopathy, now resolved. 290 cc of serosanguinous fluid overnight. Patient is hemodynamically and respiratory hardy stable. Only slight Hb drop, otherwise stable. Repreated CT chest reviewed with Dr. Alicea-->will restart therapeutic AC with heparin, while chest tube is present. If no bleed, Dr. Alicea will d/c chest tube, if bleeds again-->thoracic surgery eval. cont abx ccm time 40 min
[2017-03-17] MEDS: Insulin Lispro (HUMAlog) HIGH Coverage SC SCH ×4 (08:20→21:40)
--- NOTE | 2017-03-17 08:20 | CP.PCM.PN ---
Subjective - Date & Time of Evaluation Date of Evaluation: 03/17/17 Time of Evaluation: 08:00 - Subjective Subjective: General Surgery Dr. Alicea Pt S&E @bedside. NAEO. some pain at RCT insertion site. denies SOB, N/V, F/C. on RA/NC. tolerating diet RCT 230cc sangunious Objective - Vital Signs/Intake and Output Vital Signs (last 24 hours): Temp Pulse Resp BP Pulse Ox 99.8 F H 98 H 23 112/69 100 03/17/17 06:40 03/17/17 07:30 03/17/17 07:30 03/17/17 07:04 03/17/17 07:30 Intake and Output: 03/17/17 03/17/17 06:59 18:59 Intake Total 1535 Output Total 790 Balance 745 - Medications Medications: Current Medications Acetaminophen (Tylenol 325mg Tab) 650 mg PO Q4H PRN PRN Reason: Fever >100.4 F Last Admin: 03/17/17 06:40 Dose: 650 mg Albuterol/Ipratropium (Duoneb 3 Mg/0.5 Mg (3 Ml) Ud) 3 ml IH Q2H PRN PRN Reason: Shortness of Breath Carvedilol (Coreg) 3.125 mg PO BID [facility] Last Admin: 03/16/17 18:52 Dose: 3.125 mg Digoxin (Lanoxin) 0.25 mg PO 1400 [facility] Last Admin: 03/16/17 13:57 Dose: 0.25 mg Enoxaparin Sodium (Lovenox) 40 mg SC DAILY [facility] PRN Reason: Protocol Last Admin: 03/16/17 10:40 Dose: 40 mg Furosemide (Lasix) 40 mg IV 0800,1400 [facility] Last Admin: 03/16/17 16:46 Dose: 40 mg Vancomycin HCl (Vancomycin 1gm) 1 gm in 250 mls @ 167 mls/hr IVPB Q12 [facility] PRN Reason: Protocol Last Admin: 03/16/17 22:42 Dose: 167 mls/hr Milrinone Lactate/Dextrose (Primacor 20mg/100ml D5w) 100 mls @ 7.103 mls/hr IV .Q14H5M PRN; Protocol; 0.2 MCG/KG/MIN PRN Reason: TITRATE PER MD ORDER Last Admin: 03/17/17 00:15 Dose: 0.2 mcg/kg/min, 7.103 mls/hr Doxycycline Hyclate 100 mg/ (Sodium Chloride) 100 mls @ 100 mls/hr IVPB Q12 [facility] PRN Reason: Protocol Last Admin: 03/16/17 23:40 Dose: 100 mls/hr Meropenem 1g/NS 100mL IVPB (Meropenem 1g/Ns 100ml Ivpb) 1 gm in 100 mls @ 100 mls/hr IVPB Q8 [facility] PRN Reason: Protocol Stop: 03/24/17 06:01 Last Admin: 03/17/17 06:35 Dose: 100 mls/hr Insulin Detemir (Levemir) 10 unit SC HS [facility] Last Admin: 03/16/17 22:43 Dose: 10 unit Insulin Human Lispro (Humalog High) 0 units SC ACHS [facility] PRN Reason: Protocol Last Admin: 03/16/17 22:30 Dose: Not Given Lisinopril (Zestril) 2.5 mg PO DAILY [facility] Last Admin: 03/16/17 09:41 Dose: 2.5 mg Magnesium Oxide (Mag-Ox) 400 mg PO BID [facility] Stop: 03/18/17 23:59 Morphine Sulfate (Morphine) 4 mg IVP Q4H PRN PRN Reason: Pain, moderate (4-7) Last Admin: 03/17/17 06:46 Dose: 4 mg Ondansetron HCl (Zofran Inj) 4 mg IVP Q6H PRN PRN Reason: Nausea/Vomiting Pantoprazole Sodium (Protonix Inj) 40 mg IVP BID [facility] Last Admin: 03/16/17 17:59 Dose: 40 mg Potassium Phos/Sodium Phos (Neutra-Phos) 1 pkt PO TID [facility] Stop: 03/18/17 23:00 Spironolactone (Aldactone) 25 mg PO BID [facility] Last Admin: 03/16/17 18:00 Dose: 25 mg Verapamil HCl (Calan Tab) 40 mg PO TID [facility] Last Admin: 03/16/17 18:51 Dose: Not Given - Labs Labs: 03/17/17 05:50 03/17/17 05:50 PT 15.6 Seconds (9.9-11.8) H 03/16/17 06:00 INR 1.44 (0.93-1.08) H 03/16/17 06:00 APTT 44.2 Seconds (23.7-30.8) H 03/15/17 09:30 - Constitutional Appears: Non-toxic, No Acute Distress - Head Exam Head Exam: NORMAL INSPECTION - Eye Exam Eye Exam: Normal appearance - ENT Exam ENT Exam: Mucous Membranes Moist - Respiratory Exam Respiratory Exam: NORMAL BREATHING PATTERN. absent: Accessory Muscle Use, Respiratory Distress Additional comments: RCT in place dressing c/d/i - Cardiovascular Exam Cardiovascular Exam: REGULAR RHYTHM. absent: Bradycardia, Tachycardia - GI/Abdominal Exam GI & Abdominal Exam: Soft. absent: Distended, Tenderness - Extremities Exam Extremities Exam: Normal Inspection - Neurological Exam Neurological Exam: Alert, Awake, Oriented x3 - Psychiatric Exam Psychiatric exam: Normal Affect, Normal Mood - Skin Skin Exam: Dry, Normal Color, Warm Assessment and Plan - Assessment and Plan (Free Text) Assessment: 46 y/o F w/ R hemathorax, possible PNA POD#2 s/p RCT placement - cont R chest tube to suction - daily CXR - pain management - monitor R Chest Tube outputs - monitor vitals - recommend chest CT for lung evaluation - cont ICU management Pt discussed w/ Dr. Nixon Baker DO PGY1
--- NOTE | 2017-03-17 08:24 | CP.PCM.PN ---
Subjective - Date & Time of Evaluation Date of Evaluation: 03/17/17 Time of Evaluation: 07:00 - Subjective Subjective: Feels better, Much less SOB , no palpitation or chest adrián, Objective - Vital Signs/Intake and Output Vital Signs (last 24 hours): Temp Pulse Resp BP Pulse Ox 99.8 F H 98 H 23 112/69 100 03/17/17 06:40 03/17/17 07:30 03/17/17 07:30 03/17/17 07:04 03/17/17 07:30 Intake and Output: 03/17/17 03/17/17 06:59 18:59 Intake Total 1535 Output Total 790 Balance 745 - Medications Medications: Current Medications Acetaminophen (Tylenol 325mg Tab) 650 mg PO Q4H PRN PRN Reason: Fever >100.4 F Last Admin: 03/17/17 06:40 Dose: 650 mg Albuterol/Ipratropium (Duoneb 3 Mg/0.5 Mg (3 Ml) Ud) 3 ml IH Q2H PRN PRN Reason: Shortness of Breath Carvedilol (Coreg) 3.125 mg PO BID [facility] Last Admin: 03/16/17 18:52 Dose: 3.125 mg Digoxin (Lanoxin) 0.25 mg PO 1400 [facility] Last Admin: 03/16/17 13:57 Dose: 0.25 mg Enoxaparin Sodium (Lovenox) 40 mg SC DAILY [facility] PRN Reason: Protocol Last Admin: 03/16/17 10:40 Dose: 40 mg Furosemide (Lasix) 40 mg IV 0800,1400 [facility] Last Admin: 03/16/17 16:46 Dose: 40 mg Vancomycin HCl (Vancomycin 1gm) 1 gm in 250 mls @ 167 mls/hr IVPB Q12 [facility] PRN Reason: Protocol Last Admin: 03/16/17 22:42 Dose: 167 mls/hr Milrinone Lactate/Dextrose (Primacor 20mg/100ml D5w) 100 mls @ 7.103 mls/hr IV .Q14H5M PRN; Protocol; 0.2 MCG/KG/MIN PRN Reason: TITRATE PER MD ORDER Last Admin: 03/17/17 00:15 Dose: 0.2 mcg/kg/min, 7.103 mls/hr Doxycycline Hyclate 100 mg/ (Sodium Chloride) 100 mls @ 100 mls/hr IVPB Q12 [facility] PRN Reason: Protocol Last Admin: 03/16/17 23:40 Dose: 100 mls/hr Meropenem 1g/NS 100mL IVPB (Meropenem 1g/Ns 100ml Ivpb) 1 gm in 100 mls @ 100 mls/hr IVPB Q8 [facility] PRN Reason: Protocol Stop: 03/24/17 06:01 Last Admin: 03/17/17 06:35 Dose: 100 mls/hr Insulin Detemir (Levemir) 10 unit SC HS [facility] Last Admin: 03/16/17 22:43 Dose: 10 unit Insulin Human Lispro (Humalog High) 0 units SC ACHS [facility] PRN Reason: Protocol Last Admin: 03/16/17 22:30 Dose: Not Given Lisinopril (Zestril) 2.5 mg PO DAILY [facility] Last Admin: 03/16/17 09:41 Dose: 2.5 mg Morphine Sulfate (Morphine) 4 mg IVP Q4H PRN PRN Reason: Pain, moderate (4-7) Last Admin: 03/17/17 06:46 Dose: 4 mg Ondansetron HCl (Zofran Inj) 4 mg IVP Q6H PRN PRN Reason: Nausea/Vomiting Pantoprazole Sodium (Protonix Inj) 40 mg IVP BID [facility] Last Admin: 03/16/17 17:59 Dose: 40 mg Potassium Phos/Sodium Phos (Neutra-Phos) 1 pkt PO TID [facility] Stop: 03/18/17 23:00 Spironolactone (Aldactone) 25 mg PO BID [facility] Last Admin: 03/16/17 18:00 Dose: 25 mg Verapamil HCl (Calan Tab) 40 mg PO TID [facility] Last Admin: 03/16/17 18:51 Dose: Not Given - Labs Labs: 03/17/17 05:50 03/17/17 05:50 PT 15.6 Seconds (9.9-11.8) H 03/16/17 06:00 INR 1.44 (0.93-1.08) H 03/16/17 06:00 APTT 44.2 Seconds (23.7-30.8) H 03/15/17 09:30 - Constitutional Appears: Non-toxic - Head Exam Head Exam: ATRAUMATIC - Eye Exam Eye Exam: Conjunctival injection - ENT Exam ENT Exam: Mucous Membranes Moist - Neck Exam Neck Exam: Full ROM - Respiratory Exam Additional comments: Decrease air entry at bases R>L - Cardiovascular Exam Cardiovascular Exam: REGULAR RHYTHM - GI/Abdominal Exam GI & Abdominal Exam: Soft - Rectal Exam Rectal Exam: Deferred - Extremities Exam Extremities Exam: Normal Inspection Additional comments: Non edematous Assessment and Plan - Assessment and Plan (Free Text) Assessment: 46 year old female with multuple medical problems CHF acute decompensated secondary to Non Ischemic CMP decrease LV Fx. EF-15% Non Obst CAD, S/p Cath 12/2016 was on Life VEST...was temp. not waering b/c of discomfort Repeat Echo no L v thrrombus Was on on coumadin for LV thrombus on previous Echo...12/2016 off coumadin B/c of supra therapeutic INR...., Now has Chest tube Large right pl effusion S/p Chest tube Hx of SLE Morbid obesity Plan: continue primacor, continue Dig/ diuretics/ EITAN/ coreg / spironolactone Verapamil to contril heart rate contionue primacor for 48 hrs to get [facility] for heratfailyre treatment Lovenox ...for DVt Once chest tube is Dc 'd , will restart Coumadin ??pleurodehsis MuGA SCAN to asses LV and RV EF% F/u with EPS upon DC ...and LIfe VEST... with upgrading to AICD in 3-6 months.?? supplements Lytes.
[2017-03-17] MEDS ORDERED: Iohexol 350 MG/100 ML VIAL ONE (08:56)
[2017-03-17] MEDS: Magnesium Oxide 400 mg Tab UD PO SCH ×2 (09:02→18:00)
[2017-03-17] MEDS: Potassium & Sodium Phosphate PO SCH ×2 (09:02→15:21)
[2017-03-17] MEDS: Enoxaparin 40 mg Syringe SC SCH (09:03)
--- NOTE | 2017-03-17 09:14 | RAD ---
HISTORY: rule out pneumonia COMPARISON: No prior. FINDINGS: LUNGS: There is a right-sided chest tube that terminates in the upper lobe. There is no pneumothorax. There is slight improvement in the hazy density in the right lung PLEURA: As above CARDIOVASCULAR: Normal. OSSEOUS STRUCTURES: No significant abnormalities. VISUALIZED UPPER ABDOMEN: Normal. OTHER FINDINGS: None. IMPRESSION: Right-sided chest tube. No pneumothorax
--- NOTE | 2017-03-17 09:45 | CP.PCM.PN ---
Subjective - Date & Time of Evaluation Date of Evaluation: 03/17/17 Time of Evaluation: 08:40 - Subjective Subjective: Patient developed fever last night. Still has some soreness of the right chest but it feels better as per patient. No diarrhea, breathing better, cough getting better. Objective - Vital Signs/Intake and Output Vital Signs (last 24 hours): Temp Pulse Resp BP Pulse Ox 99.8 F H 97 H 22 93/48 L 93 L 03/17/17 01:01 03/17/17 05:00 03/17/17 05:00 03/17/17 05:00 03/17/17 05:00 Intake and Output: 03/16/17 03/17/17 18:59 06:59 Intake Total 1395 100 Output Total 1240 Balance 155 100 - Medications Medications: Current Medications Acetaminophen (Tylenol 325mg Tab) 650 mg PO Q4H PRN PRN Reason: Fever >100.4 F Last Admin: 03/17/17 00:01 Dose: 650 mg Albuterol/Ipratropium (Duoneb 3 Mg/0.5 Mg (3 Ml) Ud) 3 ml IH Q2H PRN PRN Reason: Shortness of Breath Carvedilol (Coreg) 3.125 mg PO BID [facility] Last Admin: 03/16/17 18:52 Dose: 3.125 mg Digoxin (Lanoxin) 0.25 mg PO 1400 [facility] Last Admin: 03/16/17 13:57 Dose: 0.25 mg Enoxaparin Sodium (Lovenox) 40 mg SC DAILY [facility] PRN Reason: Protocol Last Admin: 03/16/17 10:40 Dose: 40 mg Furosemide (Lasix) 40 mg IV 0800,1400 [facility] Last Admin: 03/16/17 16:46 Dose: 40 mg Vancomycin HCl (Vancomycin 1gm) 1 gm in 250 mls @ 167 mls/hr IVPB Q12 [facility] PRN Reason: Protocol Last Admin: 03/16/17 22:42 Dose: 167 mls/hr Milrinone Lactate/Dextrose (Primacor 20mg/100ml D5w) 100 mls @ 7.103 mls/hr IV .Q14H5M PRN; Protocol; 0.2 MCG/KG/MIN PRN Reason: TITRATE PER MD ORDER Last Admin: 03/17/17 00:15 Dose: 0.2 mcg/kg/min, 7.103 mls/hr Doxycycline Hyclate 100 mg/ (Sodium Chloride) 100 mls @ 100 mls/hr IVPB Q12 [facility] PRN Reason: Protocol Last Admin: 03/16/17 23:40 Dose: 100 mls/hr Meropenem 1g/NS 100mL IVPB (Meropenem 1g/Ns 100ml Ivpb) 100 mls @ 100 mls/hr IVPB Q8 [facility] PRN Reason: Protocol Stop: 03/24/17 06:01 Insulin Detemir (Levemir) 10 unit SC HS [facility] Last Admin: 03/16/17 22:43 Dose: 10 unit Insulin Human Lispro (Humalog High) 0 units SC ACHS [facility] PRN Reason: Protocol Last Admin: 03/16/17 22:30 Dose: Not Given Lisinopril (Zestril) 2.5 mg PO DAILY [facility] Last Admin: 03/16/17 09:41 Dose: 2.5 mg Morphine Sulfate (Morphine) 4 mg IVP Q4H PRN PRN Reason: Pain, moderate (4-7) Last Admin: 03/17/17 00:03 Dose: 4 mg Ondansetron HCl (Zofran Inj) 4 mg IVP Q6H PRN PRN Reason: Nausea/Vomiting Pantoprazole Sodium (Protonix Inj) 40 mg IVP BID [facility] Last Admin: 03/16/17 17:59 Dose: 40 mg Spironolactone (Aldactone) 25 mg PO BID [facility] Last Admin: 03/16/17 18:00 Dose: 25 mg Verapamil HCl (Calan Tab) 40 mg PO TID [facility] Last Admin: 03/16/17 18:51 Dose: Not Given - Labs Labs: 03/16/17 06:00 03/16/17 06:00 PT 15.6 Seconds (9.9-11.8) H 03/16/17 06:00 INR 1.44 (0.93-1.08) H 03/16/17 06:00 APTT 44.2 Seconds (23.7-30.8) H 03/15/17 09:30 - Constitutional Appears: Non-toxic, No Acute Distress - Head Exam Head Exam: NORMAL INSPECTION - ENT Exam ENT Exam: Mucous Membranes Moist - Neck Exam Neck Exam: absent: Lymphadenopathy, Meningismus - Respiratory Exam Respiratory Exam: Decreased Breath Sounds (at the bases) Additional comments: right sided chest tube in place - Cardiovascular Exam Cardiovascular Exam: +S1, +S2 - GI/Abdominal Exam GI & Abdominal Exam: Soft. absent: Tenderness Assessment and Plan - Assessment and Plan (Free Text) Plan: Assessment Systemic Inflammatory Response Syndrome, consider due to right sided pleural effusion, etiology to be determined, consider right sided healthcare-associated pneumonia S/P chest tube placement POD #2 systemic lupus erythematosus morbid obesity with BMI 41 DM asthma history of migraine headaches history of spinal stenosis history of ectopic Plan continue Doxycycline, Vancomycin (day 3) and changed Cefepime to Merrem pending repeat blood cx (1st blood cx are negative), pleural fluid analysis and cultures ; PCT is only 0.18; reviewed CT chest will continue to monitor clinically
--- NOTE | 2017-03-17 10:35 | CT ---
PROCEDURE: CT Chest with contrast HISTORY: comparison s/p Chest tube COMPARISON: Comparison is made to the previous study dated 03/15/2017 TECHNIQUE: Contiguous axial images were obtained through the chest with intravenous contrast enhancement. Sagittal and coronal reconstructions were performed. IV contrast: 100 mL of Omnipaque 350. Radiation dose (DLP): 663.54 mGy-cm. This CT exam was performed using one or more of the following dose reduction techniques: Automated exposure control, adjustment of the mA and/or kV according to patient size, and/or use of iterative reconstruction technique. FINDINGS: LUNGS: Interval almost complete re-expansion of the right upper lobe and partial re-expansion of the right middle and lower lobe since the previous exam. There is airspace consolidation at the medial aspect of the right upper lobe and in the central portion of the right lung may represent residual atelectasis. The possibility of underlying lesion or infiltrate in the consolidated right lung is not totally excluded. No evidence of mass pneumonia or suspicious nodule in the left lung. MEDIASTINUM: Unremarkable thoracic aorta. No aneurysm or dissection. Normal sized heart. Main pulmonary artery unremarkable. No vascular congestion. Slightly prominent precarinal lymph node is seen. Otherwise no evidence of significant mediastinal lymphadenopathy. PLEURA: Small to moderate size residual right pleural effusion is seen. There is right-sided chest C tube. There is a small amount of pneumothorax and small air-fluid level seen at the right pleural space could be due to recent insertion of the chest C tube. BONES: No fracture. No destructive lesion. UPPER ABDOMEN: Foci of high attenuation seen in the collecting system of the kidneys may represent contrasts. The possibility of small nonobstructing renal calculi is not totally excluded. No evidence of hydronephrosis. OTHER FINDINGS: None. IMPRESSION: Interval insertion of right-sided chest tube. Interval significant decrease in the size of the right pleural effusion since the previous exam. Almost complete re-expansion of the right lung upper lobe and partial re-expansion of the right middle and lower lobes since the previous exam. Residual airspace consolidation at the medial and central aspect of the right lung. Mild re-expansion edema in the right lung noted. No evidence of acute pathology or suspicious lesion in the left lung.
[2017-03-17] MEDS: Vancomycin 1gm in NS 250ml 1 GM/250 ML BAG IVPB SCH ×2 (10:43→22:26)
[2017-03-17 11:15] LABS: INR 2.65 (0.93-1.08); PARTIAL THROMBOPLASTIN TIME 48.6 Seconds (23.7-30.8); PROTHROMBIN TIME 28.6 Seconds (9.9-11.8)
--- NOTE | 2017-03-17 11:44 | CP.PCM.PN ---
<Ector De La Rosa - Last Filed: 03/17/17 11:37> Subjective - Date & Time of Evaluation Date of Evaluation: 03/17/17 Time of Evaluation: 07:00 - Subjective Subjective: Medicine Progress note: Pt seen and examined at [facility]. No acute events overnight. Pt states that her sob as improved. C/o pain near chat tube. No other complaints. Denies any f/c/n/ v/d. abd pain urinary or bm changes. Objective - Vital Signs/Intake and Output Vital Signs (last 24 hours): Temp Pulse Resp BP Pulse Ox 98.2 F 101 H 29 H 91/47 L 94 L 03/17/17 08:00 03/17/17 10:30 03/17/17 10:20 03/17/17 09:00 03/17/17 10:30 Intake and Output: 03/17/17 03/17/17 06:59 18:59 Intake Total 1535 Output Total 790 Balance 745 - Medications Medications: Current Medications Acetaminophen (Tylenol 325mg Tab) 650 mg PO Q4H PRN PRN Reason: Fever >100.4 F Last Admin: 03/17/17 06:40 Dose: 650 mg Albuterol/Ipratropium (Duoneb 3 Mg/0.5 Mg (3 Ml) Ud) 3 ml IH Q2H PRN PRN Reason: Shortness of Breath Carvedilol (Coreg) 3.125 mg PO BID [facility] Last Admin: 03/17/17 09:02 Dose: 3.125 mg Digoxin (Lanoxin) 0.25 mg PO 1400 [facility] Last Admin: 03/16/17 13:57 Dose: 0.25 mg Enoxaparin Sodium (Lovenox) 40 mg SC DAILY [facility] PRN Reason: Protocol Last Admin: 03/17/17 09:03 Dose: 40 mg Furosemide (Lasix) 40 mg IV 0800,1400 [facility] Last Admin: 03/17/17 08:44 Dose: 40 mg Vancomycin HCl (Vancomycin 1gm) 1 gm in 250 mls @ 167 mls/hr IVPB Q12 [facility] PRN Reason: Protocol Last Admin: 03/17/17 10:43 Dose: 167 mls/hr Milrinone Lactate/Dextrose (Primacor 20mg/100ml D5w) 100 mls @ 7.103 mls/hr IV .Q14H5M PRN; Protocol; 0.2 MCG/KG/MIN PRN Reason: TITRATE PER MD ORDER Last Admin: 03/17/17 00:15 Dose: 0.2 mcg/kg/min, 7.103 mls/hr Doxycycline Hyclate 100 mg/ (Sodium Chloride) 100 mls @ 100 mls/hr IVPB Q12 [facility] PRN Reason: Protocol Last Admin: 03/17/17 09:08 Dose: 100 mls/hr Meropenem 1g/NS 100mL IVPB (Meropenem 1g/Ns 100ml Ivpb) 1 gm in 100 mls @ 100 mls/hr IVPB Q8 [facility] PRN Reason: Protocol Stop: 03/24/17 06:01 Last Admin: 03/17/17 06:35 Dose: 100 mls/hr Insulin Detemir (Levemir) 10 unit SC HS [facility] Last Admin: 03/16/17 22:43 Dose: 10 unit Insulin Human Lispro (Humalog High) 0 units SC ACHS [facility] PRN Reason: Protocol Last Admin: 03/17/17 08:20 Dose: Not Given Lisinopril (Zestril) 2.5 mg PO DAILY [facility] Last Admin: 03/17/17 10:43 Dose: 2.5 mg Magnesium Oxide (Mag-Ox) 400 mg PO BID [facility] Stop: 03/18/17 23:59 Last Admin: 03/17/17 09:02 Dose: 400 mg Morphine Sulfate (Morphine) 4 mg IVP Q4H PRN PRN Reason: Pain, moderate (4-7) Last Admin: 03/17/17 06:46 Dose: 4 mg Ondansetron HCl (Zofran Inj) 4 mg IVP Q6H PRN PRN Reason: Nausea/Vomiting Pantoprazole Sodium (Protonix Inj) 40 mg IVP BID [facility] Last Admin: 03/17/17 09:03 Dose: 40 mg Potassium Phos/Sodium Phos (Neutra-Phos) 1 pkt PO TID [facility] Stop: 03/18/17 23:00 Last Admin: 03/17/17 09:02 Dose: 1 pkt Spironolactone (Aldactone) 25 mg PO BID [facility] Last Admin: 03/17/17 09:02 Dose: 25 mg Verapamil HCl (Calan Tab) 40 mg PO TID [facility] Last Admin: 03/17/17 09:02 Dose: 40 mg - Labs Labs: 03/17/17 05:50 03/17/17 05:50 PT 28.6 Seconds (9.9-11.8) H 03/17/17 10:40 INR 2.65 (0.93-1.08) H 03/17/17 10:40 APTT 48.6 Seconds (23.7-30.8) H 03/17/17 10:40 - Constitutional Appears: No Acute Distress - Head Exam Head Exam: ATRAUMATIC, NORMAL INSPECTION, NORMOCEPHALIC - Eye Exam Eye Exam: EOMI, Normal appearance, PERRL Pupil Exam: NORMAL ACCOMODATION, PERRL - ENT Exam ENT Exam: Mucous Membranes Moist - Respiratory Exam Respiratory Exam: Clear to Ausculation Bilateral, NORMAL BREATHING PATTERN. absent: Wheezes - Cardiovascular Exam Cardiovascular Exam: REGULAR RHYTHM, RRR, +S1, +S2. absent: Murmur - GI/Abdominal Exam GI & Abdominal Exam: Soft, Normal Bowel Sounds. absent: Distended, Tenderness - Neurological Exam Neurological Exam: Alert, Awake, CN II-XII Intact, Oriented x3 - Psychiatric Exam Psychiatric exam: Normal Affect, Normal Mood - Skin Skin Exam: Dry, Intact, Normal Color, Warm Assessment and Plan - Assessment and Plan (Free Text) Assessment: 46 yo with severe dilated cardiomyopathy with severe LV systolic dysfunction admitted to the ICU for acute respiratory distress, anemia, and a supratherapeutic INR 1. acute respiratory distress 2/2 Empyema vs. Hemothorax vs pna - Duoneb -Consulted surgery - right chest tube placement, monitor output -F/u pleural fluid cultures, blood cx x 2 negative -ID consult - changed Cefepime--> merrem , vancomycin and doxy -Cont. Duoneb prn 2. Dilated cardiomyopathy with severe LV systolic dysfunction -Echo revealed no LV thrombus, EF 15% with dilated and severe systolic dys -Consulted cardiology - rec anticoagulation after dc chest tube and possible EP evaluation, Cont Milrinone, Lisinopril, Carvedilol, digoxin, verapamil, Aldactone -Monitor INR 3. Left leg pain -Extremity US negative for DVT -Morphine 4q4 prn 4. Insulin dependent diabetes mellitus -Levemir 10 units -Humalog ISS as protocol 5. GI/DVT PPx -Protonix -Lovenox Patient and plan was seen and discussed in detail with Dr. Maritns. <Rob Martins - Last Filed: 03/17/17 12:23> Objective - Vital Signs/Intake and Output Vital Signs (last 24 hours): Temp Pulse Resp BP Pulse Ox 98.2 F 101 H 29 H 91/47 L 94 L 03/17/17 08:00 03/17/17 10:30 03/17/17 10:20 03/17/17 09:00 03/17/17 10:30 Intake and Output: 03/17/17 03/17/17 06:59 18:59 Intake Total 1535 Output Total 790 Balance 745 - Medications Medications: Current Medications Acetaminophen (Tylenol 325mg Tab) 650 mg PO Q4H PRN PRN Reason: Fever >100.4 F Last Admin: 03/17/17 06:40 Dose: 650 mg Albuterol/Ipratropium (Duoneb 3 Mg/0.5 Mg (3 Ml) Ud) 3 ml IH Q2H PRN PRN Reason: Shortness of Breath Carvedilol (Coreg) 3.125 mg PO BID [facility] Last Admin: 03/17/17 09:02 Dose: 3.125 mg Digoxin (Lanoxin) 0.25 mg PO 1400 [facility] Last Admin: 03/16/17 13:57 Dose: 0.25 mg Enoxaparin Sodium (Lovenox) 40 mg SC DAILY [facility] PRN Reason: Protocol Last Admin: 03/17/17 09:03 Dose: 40 mg Furosemide (Lasix) 40 mg IV 0800,1400 [facility] Last Admin: 03/17/17 08:44 Dose: 40 mg Vancomycin HCl (Vancomycin 1gm) 1 gm in 250 mls @ 167 mls/hr IVPB Q12 [facility] PRN Reason: Protocol Last Admin: 03/17/17 10:43 Dose: 167 mls/hr Milrinone Lactate/Dextrose (Primacor 20mg/100ml D5w) 100 mls @ 7.103 mls/hr IV .Q14H5M PRN; Protocol; 0.2 MCG/KG/MIN PRN Reason: TITRATE PER MD ORDER Last Admin: 03/17/17 00:15 Dose: 0.2 mcg/kg/min, 7.103 mls/hr Doxycycline Hyclate 100 mg/ (Sodium Chloride) 100 mls @ 100 mls/hr IVPB Q12 [facility] PRN Reason: Protocol Last Admin: 03/17/17 09:08 Dose: 100 mls/hr Meropenem 1g/NS 100mL IVPB (Meropenem 1g/Ns 100ml Ivpb) 1 gm in 100 mls @ 100 mls/hr IVPB Q8 [facility] PRN Reason: Protocol Stop: 03/24/17 06:01 Last Admin: 03/17/17 06:35 Dose: 100 mls/hr Insulin Detemir (Levemir) 10 unit SC HS [facility] Last Admin: 03/16/17 22:43 Dose: 10 unit Insulin Human Lispro (Humalog High) 0 units SC ACHS [facility] PRN Reason: Protocol Last Admin: 03/17/17 11:43 Dose: 1 units Lisinopril (Zestril) 2.5 mg PO DAILY [facility] Last Admin: 03/17/17 10:43 Dose: 2.5 mg Magnesium Oxide (Mag-Ox) 400 mg PO BID [facility] Stop: 03/18/17 23:59 Last Admin: 03/17/17 09:02 Dose: 400 mg Morphine Sulfate (Morphine) 4 mg IVP Q4H PRN PRN Reason: Pain, moderate (4-7) Last Admin: 03/17/17 11:33 Dose: 4 mg Ondansetron HCl (Zofran Inj) 4 mg IVP Q6H PRN PRN Reason: Nausea/Vomiting Pantoprazole Sodium (Protonix Inj) 40 mg IVP BID [facility] Last Admin: 03/17/17 09:03 Dose: 40 mg Potassium Phos/Sodium Phos (Neutra-Phos) 1 pkt PO TID [facility] Stop: 03/18/17 23:00 Last Admin: 03/17/17 09:02 Dose: 1 pkt Spironolactone (Aldactone) 25 mg PO BID [facility] Last Admin: 03/17/17 09:02 Dose: 25 mg Verapamil HCl (Calan Tab) 40 mg PO TID [facility] Last Admin: 03/17/17 09:02 Dose: 40 mg - Labs Labs: 03/17/17 05:50 03/17/17 05:50 PT 28.6 Seconds (9.9-11.8) H 03/17/17 10:40 INR 2.65 (0.93-1.08) H 03/17/17 10:40 APTT 48.6 Seconds (23.7-30.8) H 03/17/17 10:40 Attending/Attestation - Attestation I have personally seen and examined this patient.: Yes I have fully participated in the care of the patient.: Yes I have reviewed all pertinent clinical information, including history, physical exam and plan: Yes Notes (Text): 03/17/17 12:19 46 year old female with past medical history of cardiac thrombus, dilated cardiomyopathy and diabetes who presented with sepsis and respiratory distress. She was found to have large right pleural effusion and supratherapeutic INR. She is s/p chest tube. Continue with chest tube care as per surgery and skiver hand. Repeat CXR and CT chest was reviewed. She is on iv antibiotics as per ID. Repeat echocardiogram was reviewed; no cardiac thrombus was seen. Coumadin is currently on hold. Will discuss with cardiology when to resume. She is on primacor, lasix, coreg, digoxin, lisinopril, and spironalactone. She is on levemir and insulin ss for diabetes. Rob Martins MD Hospitalist.
[2017-03-17] MEDS: Digoxin 250 mcg (0.25 mg) Tab PO SCH (15:07)
[2017-03-17] MEDS: Heparin 25,000units in D5W 25,000 UNITS/250 ML BAG IV PRN (18:01)
--- NOTE | 2017-03-17 19:06 | CARD ---
APPROVED REPORT INDICATION CMP TO ASSESS LV AND RV EF% PROCEDURE The above named patient recieved 30 millicuries of Tc99m tagged red blood cells intravenously. After achieving equilibrium, gated imaging of 16/frame/cycle was performed utillizing Gamma camera interfaced with a digital computer and gated device. Gated imaging was then performed in the left anterior oblique, anterior, and the left lateral projections. Findings Left Ventricle: The quality of the study is suboptimal due to poor positioning. The left ventricle is moderately enlarged. The right ventricle is normal in size. Wall motion study shows diffuse hypokinesis of the left ventricle. RV wall motion is normal. The right atrium is dynamic. The remainder of the study is unremarkable. Impressions Suboptimal study. Moderate LV dysfunction with diffuse hypokinesis. LVEF = 37%. Normal RV wall motion.
[2017-03-17 21:42] LABS: B2 GLYCOPROTEIN I AB(IGA) <9 SAU (<=20); B2 GLYCOPROTEIN I AB(IGG) <9 SGU (<=20); B2 GLYCOPROTEIN I AB(IGM) <9 SMU (<=20)
[2017-03-17] MEDS: Insulin Detemir 100 units/ml Vial (Levemir) SC SCH (22:24)
[2017-03-18] MEDS: Morphine 4 mg/ml ISec IVP PRN ×3 (01:46→16:45)
[2017-03-18 04:17] LABS: CARDIOLIPIN AB (IGA) <11 APL (<=11); CARDIOLIPIN AB (IGG) <14 GPL (<=14); CARDIOLIPIN AB (IGM) <12 MPL (<=12)
[2017-03-18] MEDS: Meropenem 1g/NS 100mL IVPB 1 GM/100 ML PIGGYBACK IVPB SCH ×3 (05:17→22:00)
[2017-03-18] MEDS: Milrinone 20mg/100ml D5W 100 ML IV PRN ×2 (05:18→18:15)
[2017-03-18 06:07] LABS: PHOSPHATIDYLSERINE AB IGA <20 U/mL (<20); PHOSPHATIDYLSERINE AB IGG <10 U/mL (<10); PHOSPHATIDYLSERINE AB IGM <25 U/mL (<25)
[2017-03-18 06:25] LABS: BASO # 0.05 K/mm3 (0.0-2.0); BASO % 0.3 % (0.0-3.0); EOS # 0.4 (0.0-0.7); EOS % 2.7 % (1.5-5.0); GRAN # 9.93 (1.4-6.5); GRAN % 61.5 % (50.0-68.0); HEMOGLOBIN 9.3 gm/dL (12.0-16.0); LYMPH # 4.5 (1.2-3.4); LYMPH % 27.9 % (22.0-35.0); MEAN CELL VOLUME 76.6 fL (80.0-105.0); MEAN CORPUSCULAR HEMOGLOBIN 24.5 pg (25.0-35.0); MEAN PLATELET VOLUME 8.7 fl (7.0-11.0); MONO # 1.2 (0.1-0.6); MONO % 7.6 % (1.0-6.0); PLATELET COUNT 490 10^3/uL (120.0-450.0); WHITE BLOOD COUNT 16.1 10^3/ul (4.5-11.0)
--- NOTE | 2017-03-18 06:26 | CP.PCM.PN ---
Subjective - Date & Time of Evaluation Date of Evaluation: 03/18/17 Time of Evaluation: 05:30 - Subjective Subjective: General Surgery- Dr. Alicea Pt S&E at bedside this AM. NAEO. some pain at RCT insertion site. denies SOB, N/ V, F/C. tolerating diet RCT 180cc over 24hrs sangunious Objective - Vital Signs/Intake and Output Vital Signs (last 24 hours): Temp Pulse Resp BP Pulse Ox 98.9 F 99 H 20 118/80 94 L 03/18/17 04:00 03/18/17 05:00 03/18/17 04:00 03/18/17 05:00 03/18/17 05:00 Intake and Output: 03/17/17 03/18/17 18:59 06:59 Intake Total 1050 100 Output Total 1330 Balance -280 100 - Medications Medications: Current Medications Acetaminophen (Tylenol 325mg Tab) 650 mg PO Q4H PRN PRN Reason: Fever >100.4 F Last Admin: 03/17/17 06:40 Dose: 650 mg Albuterol/Ipratropium (Duoneb 3 Mg/0.5 Mg (3 Ml) Ud) 3 ml IH Q2H PRN PRN Reason: Shortness of Breath Carvedilol (Coreg) 3.125 mg PO BID [facility] Last Admin: 03/17/17 18:25 Dose: 3.125 mg Digoxin (Lanoxin) 0.25 mg PO 1400 [facility] Last Admin: 03/17/17 15:07 Dose: 0.25 mg Furosemide (Lasix) 40 mg IV 0800,1400 [facility] Last Admin: 03/17/17 14:55 Dose: 40 mg Vancomycin HCl (Vancomycin 1gm) 1 gm in 250 mls @ 167 mls/hr IVPB Q12 [facility] PRN Reason: Protocol Last Admin: 03/17/17 22:26 Dose: 167 mls/hr Milrinone Lactate/Dextrose (Primacor 20mg/100ml D5w) 100 mls @ 7.103 mls/hr IV .Q14H5M PRN; Protocol; 0.2 MCG/KG/MIN PRN Reason: TITRATE PER MD ORDER Last Admin: 03/18/17 05:18 Dose: 0.2 mcg/kg/min, 7.103 mls/hr Doxycycline Hyclate 100 mg/ (Sodium Chloride) 100 mls @ 100 mls/hr IVPB Q12 [facility] PRN Reason: Protocol Last Admin: 03/17/17 22:24 Dose: 100 mls/hr Meropenem 1g/NS 100mL IVPB (Meropenem 1g/Ns 100ml Ivpb) 1 gm in 100 mls @ 100 mls/hr IVPB Q8 [facility] PRN Reason: Protocol Stop: 03/24/17 06:01 Last Admin: 03/18/17 05:17 Dose: 100 mls/hr Heparin Sodium/Dextrose (Heparin 25,000 Units/250ml In D5w) 25,000 units in 250 mls @ 10.124 mls/hr IV .Q24H PRN; Protocol; 9 UNITS/KG/HR PRN Reason: ADJUST RATE PER PROTOCOL Last Admin: 03/17/17 18:01 Dose: 9 units/kg/hr, 10.124 mls/hr Insulin Detemir (Levemir) 10 unit SC HS [facility] Last Admin: 03/17/17 22:24 Dose: 10 unit Insulin Human Lispro (Humalog High) 0 units SC ACHS [facility] PRN Reason: Protocol Last Admin: 03/17/17 21:40 Dose: Not Given Lisinopril (Zestril) 2.5 mg PO DAILY [facility] Last Admin: 03/17/17 10:43 Dose: 2.5 mg Magnesium Oxide (Mag-Ox) 400 mg PO BID [facility] Stop: 03/18/17 23:59 Last Admin: 03/17/17 18:00 Dose: 400 mg Morphine Sulfate (Morphine) 4 mg IVP Q4H PRN PRN Reason: Pain, moderate (4-7) Last Admin: 03/18/17 01:46 Dose: 4 mg Ondansetron HCl (Zofran Inj) 4 mg IVP Q6H PRN PRN Reason: Nausea/Vomiting Pantoprazole Sodium (Protonix Inj) 40 mg IVP BID [facility] Last Admin: 03/17/17 09:03 Dose: 40 mg Potassium Phos/Sodium Phos (Neutra-Phos) 1 pkt PO TID [facility] Stop: 03/18/17 23:00 Last Admin: 03/17/17 15:21 Dose: 1 pkt Spironolactone (Aldactone) 25 mg PO BID [facility] Last Admin: 03/17/17 17:59 Dose: 25 mg Verapamil HCl (Calan Tab) 40 mg PO TID [facility] Last Admin: 03/17/17 17:59 Dose: 40 mg - Labs Labs: 03/17/17 05:50 03/17/17 05:50 PT 28.6 Seconds (9.9-11.8) H 03/17/17 10:40 INR 2.65 (0.93-1.08) H 03/17/17 10:40 APTT 68.9 Seconds (23.7-30.8) H 03/18/17 00:20 - Constitutional Appears: No Acute Distress - Eye Exam Eye Exam: EOMI - Respiratory Exam Respiratory Exam: Chest Wall Tenderness, Rhonchi, NORMAL BREATHING PATTERN. absent: Accessory Muscle Use Additional comments: approriately tender around RCT incision site - Cardiovascular Exam Cardiovascular Exam: Tachycardia, +S1, +S2 - GI/Abdominal Exam GI & Abdominal Exam: Soft, Normal Bowel Sounds - Neurological Exam Neurological Exam: Awake, Oriented x3 - Psychiatric Exam Psychiatric exam: Normal Affect - Skin Skin Exam: Intact, Normal Color Assessment and Plan - Assessment and Plan (Free Text) Assessment: 46F w/ R hemathorax, possible PNA POD#2 s/p RCT placement Plan: - cont R chest tube to suction - daily CXR - pain management - monitor R Chest Tube outputs - monitor vitals - recommend chest CT for lung evaluation - cont ICU management Pt discussed w/ Dr. Nixon Quijano PGY1
[2017-03-18 06:30] LABS: ALB/GLOB RATIO 0.9 (1.1-1.8); ALBUMIN 2.9 g/dL (3.0-4.8); ALT/SGPT 36 U/L (7-56); AST/SGOT 32 U/L (15-39); BLOOD UREA NITROGEN 12 mg/dL (7-21); GFR AFRICAN-AMERICAN > 60; GFR NON-AFRICAN AMERICAN > 60
[2017-03-18] MEDS: Insulin Lispro (HUMAlog) HIGH Coverage SC SCH ×4 (08:15→22:28)
[2017-03-18] MEDS ORDERED: Potassium Chloride 40 mEq/30 ml LIQ UD PO STA (08:31)
--- NOTE | 2017-03-18 09:05 | RAD ---
HISTORY: chest tube COMPARISON: 03/17/2017 FINDINGS: LUNGS: No change in right-sided infiltrate. Chest tube remains in place. There is no pneumothorax PLEURA: No significant pleural effusion identified, no pneumothorax apparent. CARDIOVASCULAR: Normal. OSSEOUS STRUCTURES: No significant abnormalities. VISUALIZED UPPER ABDOMEN: Normal. OTHER FINDINGS: None. IMPRESSION: No change in right-sided infiltrate.
[2017-03-18] MEDS: Potassium & Sodium Phosphate PO SCH ×3 (09:13→17:38)
[2017-03-18] MEDS: Magnesium Oxide 400 mg Tab UD PO SCH ×2 (09:14→17:39)
--- NOTE | 2017-03-18 09:57 | CP.CCUPN ---
CCU Subjective - Physician Review Events Since Last Encounter (Free Text): 03/18/17 09:52 No acute events overnight Heparin drip restarted without any further bleeding noted. Resp status improved. CCU Objective - Vital Signs / Intake & Output Vital Signs (Last 4 hours): Vital Signs Pulse Resp BP Pulse Ox 03/18/17 09:38 115 H 33 H 03/18/17 09:17 136/35 L 03/18/17 09:14 112 H 136/35 L 03/18/17 09:13 112 H 136/35 L 03/18/17 09:12 112 H 136/35 L 03/18/17 09:01 110 H 25 H 136/35 L 97 03/18/17 09:00 111 H 22 97 03/18/17 08:02 113 H 39 H 147/96 H 96 03/18/17 08:01 113 H 30 H 03/18/17 08:00 113 H 51 H 96 03/18/17 07:41 114 H 26 H 03/18/17 07:40 110 H 20 03/18/17 07:39 109 H 26 H 03/18/17 07:36 107 H 19 03/18/17 07:35 107 H 38 H 03/18/17 07:23 104 H 24 03/18/17 07:22 104 H 28 H 03/18/17 07:21 104 H 28 H 03/18/17 07:02 105 H 28 H 119/59 L 95 03/18/17 07:00 102 H 20 95 03/18/17 06:00 102 H 31 H 105/53 L 95 Intake and Output (Last 8hrs): Intake & Output 03/17/17 03/18/17 03/18/17 22:59 06:59 14:59 Intake Total 950 1455 Output Total 1330 1070 Balance -380 385 Intake: IV 450 855 Antibiotics 450 550 Milrinone drip 85 left ac 120 Oral 500 600 Output: Chest Tube Drainage 130 70 Right Anterior Chest 130 70 Urine 1200 1000 Urine, Voided 1200 1000 Other: Voiding Method Bedpan # Voids Urine, Voided 2 # Bowel Movements 0 - Physical Exam Head: Positive for: Atraumatic, Normocephalic Pupils: Positive for: PERRL Conjunctiva: Positive for: Normal Mouth: Positive for: Moist Mucous Membranes Pharnyx: Positive for: Normal. Negative for: ERYTHEMA, EXUDATE Nose (Internal): Positive for: Normal Inspection Neck: Positive for: Normal Range of Motion. Negative for: JVD Respiratory/Chest: Positive for: Decreased Breath Sounds (R side), Other ( Tubular breath sounds right lung base ). Negative for: Respiratory Distress, Accessory Muscle Use Cardiovascular: Positive for: Normal S1, S2, Tachycardic. Negative for: Murmurs Abdomen: Positive for: Normal Bowel Sounds. Negative for: Tenderness, Distention, Peritoneal Signs, Rebound, Guarding Upper Extremity: Positive for: Normal Inspection. Negative for: Cyanosis, Edema Lower Extremity: Positive for: Normal Inspection, NORMAL PULSES, Neurovascularly Intact, Capillary Refill < 2 s. Negative for: Edema, CALF TENDERNESS, Tenderness, Swelling, Erythema Neurological: Positive for: GCS=15, CN II-XII Intact, Speech Normal, Motor Func Grossly Intact, Normal Sensory Function Skin: Positive for: Warm, Dry, Normal Color. Negative for: Rashes Psychiatric: Positive for: Alert, Oriented x 3, Normal Insight, Normal Concentration - Medications Active Medications: Active Medications Generic Name Dose Route Start Last Admin Trade Name Freq PRN Reason Stop Dose Admin Acetaminophen 650 mg 03/14/17 22:50 03/17/17 06:40 Tylenol 325mg Tab PO 650 mg Q4H PRN Administration Fever >100.4 F Albuterol/Ipratropium 3 ml 03/14/17 23:18 Duoneb 3 Mg/0.5 Mg (3 Ml) Ud IH Q2H PRN Shortness of Breath Carvedilol 3.125 mg 03/16/17 10:00 03/18/17 09:13 Coreg PO 3.125 mg BID ORION Administration Digoxin 0.25 mg 03/16/17 14:00 03/17/17 15:07 Lanoxin PO 0.25 mg 1400 ORION Administration Furosemide 40 mg 03/16/17 14:00 03/18/17 09:17 Lasix IV 40 mg 0800,1400 ORION Administration Vancomycin HCl 1 gm in 250 mls @ 167 mls/hr 03/15/17 10:00 03/17/17 22:26 Vancomycin 1gm IVPB 167 mls/hr Q12 ORION Administration Protocol Milrinone Lactate/Dextrose 100 mls @ 7.103 mls/hr 03/15/17 18:21 03/18/17 05: 18 Primacor 20mg/100ml D5w IV 0.2 mcg/kg/min .Q14H5M PRN 7.103 mls/hr TITRATE PER MD ORDER Administration Protocol 0.2 MCG/KG/MIN Doxycycline Hyclate 100 mg/ 100 mls @ 100 mls/hr 03/16/17 22:00 03/18/17 09: 15 Sodium Chloride IVPB 100 mls/hr Q12 ORION Administration Protocol Meropenem 1g/NS 100mL IVPB 1 gm in 100 mls @ 100 mls/hr 03/17/17 06:00 05:17 Meropenem 1g/Ns 100ml Ivpb IVPB 03/24/17 06:01 100 mls/hr Q8 ORION Administration Protocol Heparin Sodium/Dextrose 25,000 units in 250 mls @ 10.124 mls/hr 03/17/17 16: 30 03/17/17 18:01 Heparin 25,000 Units/250ml In D5w IV 9 units/kg/hr .Q24H PRN 10.124 mls/hr ADJUST RATE PER PROTOCOL Administration Protocol 9 UNITS/KG/HR Insulin Detemir 10 unit 03/16/17 21:22 03/17/17 22:24 Levemir SC 10 unit HS ORION Administration Insulin Human Lispro 0 units 03/15/17 16:30 03/18/17 08:15 Humalog High SC 2 units ACHS ORION Administration Protocol Lisinopril 2.5 mg 03/16/17 10:00 03/18/17 09:12 Zestril PO 2.5 mg DAILY ORION Administration Magnesium Oxide 400 mg 03/17/17 10:00 03/18/17 09:14 Mag-Ox PO 03/18/17 23:59 400 mg BID ORION Administration Morphine Sulfate 4 mg 03/15/17 17:01 03/18/17 01:46 Morphine IVP 4 mg Q4H PRN Administration Pain, moderate (4-7) Ondansetron HCl 4 mg 03/14/17 22:50 Zofran Inj IVP Q6H PRN Nausea/Vomiting Pantoprazole Sodium 40 mg 03/15/17 18:00 03/18/17 09:17 Protonix Inj IVP 40 mg BID ORION Administration Potassium Phos/Sodium Phos 1 pkt 03/17/17 10:00 03/18/17 09:13 Neutra-Phos PO 03/18/17 23:00 1 pkt TID ORION Administration Spironolactone 25 mg 03/16/17 10:00 03/18/17 09:14 Aldactone PO 25 mg BID ORION Administration Verapamil HCl 40 mg 03/16/17 10:00 03/18/17 09:14 Calan Tab PO 40 mg TID ORION Administration - Patient Studies Lab Studies: Microbiology Studies 03/17/17 07:00 Blood Culture - Preliminary Blood-Venous NO GROWTH AFTER 24 HOURS 03/17/17 06:50 Blood Culture - Preliminary Blood-Venous NO GROWTH AFTER 24 HOURS 03/15/17 16:39 Gram Stain - Final Pleural Fluid Anaerobic Culture - Final NO ANAEROBES ISOLATED. Body Fluid Culture - Preliminary NO GROWTH AFTER 2 DAYS Fungal Culture - Preliminary Lab Studies 03/18/17 03/18/17 03/18/17 Range/Units 07:27 05:30 05:30 WBC 16.1 H (4.5-11.0) 10^3/ul RBC 3.80 (3.5-6.1) 10^6/uL Hgb 9.3 L (12.0-16.0) gm/dL Hct 29.1 L (36.0-48.0) % MCV 76.6 L (80.0-105.0) fL MCH 24.5 L (25.0-35.0) pg MCHC 32.0 (31.0-37.0) g/dl RDW 17.0 H (11.5-14.5) % Plt Count 490 H (120.0-450.0) 10^3/uL MPV 8.7 (7.0-11.0) fl Gran % 61.5 (50.0-68.0) % Lymph % (Auto) 27.9 (22.0-35.0) % [place] % (Auto) 7.6 H (1.0-6.0) % Eos % (Auto) 2.7 (1.5-5.0) % Baso % (Auto) 0.3 (0.0-3.0) % Gran # 9.93 H (1.4-6.5) Lymph # 4.5 H (1.2-3.4) [place] # 1.2 H (0.1-0.6) Eos # 0.4 (0.0-0.7) Baso # 0.05 (0.0-2.0) K/mm3 PT (9.9-11.8) Seconds INR (0.93-1.08) APTT (23.7-30.8) Seconds Protein C Activity (70-180) % Protein S Activity (60-140) % Factor V Activity (65-150) % Sodium 136 (132-148) mmol/L Potassium 3.3 L (3.6-5.0) mmol/L Chloride 100 (98-107) mmol/L Carbon Dioxide 28 (21-33) mmol/L Anion Gap 11 (10-20) BUN 12 (7-21) mg/dL Creatinine 0.7 (0.5-1.4) mg/dL Est GFR ( Amer) > 60 Est GFR (Non-Af Amer) > 60 POC Glucose (mg/dL) 184 H (65-110) mg/dL Random Glucose 152 H (70-110) mg/dL Calcium 8.0 L (8.4-10.5) mg/dL Total Bilirubin 1.0 (0.2-1.3) mg/dL AST 32 (15-39) U/L ALT 36 (7-56) U/L Alkaline Phosphatase 107 (38-133) U/L Total Protein 6.3 (5.8-8.3) g/dL Albumin 2.9 L (3.0-4.8) g/dL Globulin 3.3 gm/dL Albumin/Globulin Ratio 0.9 L (1.1-1.8) Procalcitonin (0.19-0.49) NG/ML JAY Screen (Negative) JAY Titer (<1:40) Titer JAY Titer 2 JAY Pattern JAY Pattern 2 Vros-3-Waraqlobdpat Ab (<=20) MOUNA Beta-2 GPI IgG Ab (<=20) [facility] Beta-2 GPI IgM Ab (<=20) [facility] Phosphatidylserine IgG (<10) U/mL Phosphatidylserine IgA (<20) U/mL Phosphatidylserine IgM (<25) U/mL Anti-Phospholipid Intrp Anti-Cardiolipin IgG Ab (<=14) GPL Anti-Cardiolipin IgA Ab (<=11) APL Anti-Cardiolipin IgM Ab (<=12) MPL HIV 1&2 Ag/Ab, 4th Gen (Nonreactive) 03/18/17 03/17/17 03/17/17 Range/Units 00:20 21:32 17:59 WBC (4.5-11.0) 10^3/ul RBC (3.5-6.1) 10^6/uL Hgb (12.0-16.0) gm/dL Hct (36.0-48.0) % MCV (80.0-105.0) fL MCH (25.0-35.0) pg MCHC (31.0-37.0) g/dl RDW (11.5-14.5) % Plt Count (120.0-450.0) 10^3/uL MPV (7.0-11.0) fl Gran % (50.0-68.0) % Lymph % (Auto) (22.0-35.0) % [place] % (Auto) (1.0-6.0) % Eos % (Auto) (1.5-5.0) % Baso % (Auto) (0.0-3.0) % Gran # (1.4-6.5) Lymph # (1.2-3.4) [place] # (0.1-0.6) Eos # (0.0-0.7) Baso # (0.0-2.0) K/mm3 PT (9.9-11.8) Seconds INR (0.93-1.08) APTT 68.9 H (23.7-30.8) Seconds Protein C Activity (70-180) % Protein S Activity (60-140) % Factor V Activity (65-150) % Sodium (132-148) mmol/L Potassium (3.6-5.0) mmol/L Chloride (98-107) mmol/L Carbon Dioxide (21-33) mmol/L Anion Gap (10-20) BUN (7-21) mg/dL Creatinine (0.5-1.4) mg/dL Est GFR ( Amer) Est GFR (Non-Af Amer) POC Glucose (mg/dL) 265 H 194 H (65-110) mg/dL Random Glucose (70-110) mg/dL Calcium (8.4-10.5) mg/dL Total Bilirubin (0.2-1.3) mg/dL AST (15-39) U/L ALT (7-56) U/L Alkaline Phosphatase (38-133) U/L Total Protein (5.8-8.3) g/dL Albumin (3.0-4.8) g/dL Globulin gm/dL Albumin/Globulin Ratio (1.1-1.8) Procalcitonin (0.19-0.49) NG/ML JAY Screen (Negative) JAY Titer (<1:40) Titer JAY Titer 2 JAY Pattern JAY Pattern 2 Afwf-9-Xzhxwzencuzq Ab (<=20) MOUNA Beta-2 GPI IgG Ab (<=20) [facility]U Beta-2 GPI IgM Ab (<=20) [facility] Phosphatidylserine IgG (<10) U/mL Phosphatidylserine IgA (<20) U/mL Phosphatidylserine IgM (<25) U/mL Anti-Phospholipid Intrp Anti-Cardiolipin IgG Ab (<=14) GPL Anti-Cardiolipin IgA Ab (<=11) APL Anti-Cardiolipin IgM Ab (<=12) MPL HIV 1&2 Ag/Ab, 4th Gen (Nonreactive) 03/17/17 03/17/17 03/17/17 Range/Units 11:39 10:40 06:50 WBC (4.5-11.0) 10^3/ul RBC (3.5-6.1) 10^6/uL Hgb (12.0-16.0) gm/dL Hct (36.0-48.0) % MCV (80.0-105.0) fL MCH (25.0-35.0) pg MCHC (31.0-37.0) g/dl RDW (11.5-14.5) % Plt Count (120.0-450.0) 10^3/uL MPV (7.0-11.0) fl Gran % (50.0-68.0) % Lymph % (Auto) (22.0-35.0) % [place] % (Auto) (1.0-6.0) % Eos % (Auto) (1.5-5.0) % Baso % (Auto) (0.0-3.0) % Gran # (1.4-6.5) Lymph # (1.2-3.4) [place] # (0.1-0.6) Eos # (0.0-0.7) Baso # (0.0-2.0) K/mm3 PT 28.6 H (9.9-11.8) Seconds INR 2.65 H (0.93-1.08) APTT 48.6 H (23.7-30.8) Seconds Protein C Activity (70-180) % Protein S Activity (60-140) % Factor V Activity (65-150) % Sodium (132-148) mmol/L Potassium (3.6-5.0) mmol/L Chloride (98-107) mmol/L Carbon Dioxide (21-33) mmol/L Anion Gap (10-20) BUN (7-21) mg/dL Creatinine (0.5-1.4) mg/dL Est GFR ( Amer) Est GFR (Non-Af Amer) POC Glucose (mg/dL) 304 H (65-110) mg/dL Random Glucose (70-110) mg/dL Calcium (8.4-10.5) mg/dL Total Bilirubin (0.2-1.3) mg/dL AST (15-39) U/L ALT (7-56) U/L Alkaline Phosphatase (38-133) U/L Total Protein (5.8-8.3) g/dL Albumin (3.0-4.8) g/dL Globulin gm/dL Albumin/Globulin Ratio (1.1-1.8) Procalcitonin 0.19 (0.19-0.49) NG/ML JAY Screen (Negative) JAY Titer (<1:40) Titer JAY Titer 2 JAY Pattern JAY Pattern 2 Mepi-9-Hkdxhfwfjvlj Ab (<=20) MOUNA Beta-2 GPI IgG Ab (<=20) [facility]U Beta-2 GPI IgM Ab (<=20) [facility] Phosphatidylserine IgG (<10) U/mL Phosphatidylserine IgA (<20) U/mL Phosphatidylserine IgM (<25) U/mL Anti-Phospholipid Intrp Anti-Cardiolipin IgG Ab (<=14) GPL Anti-Cardiolipin IgA Ab (<=11) APL Anti-Cardiolipin IgM Ab (<=12) MPL HIV 1&2 Ag/Ab, 4th Gen (Nonreactive) 07/06/17 07/05/17 07/05/17 Range/Units 10:14 18:05 18:05 WBC (4.5-11.0) 10^3/ul RBC (3.5-6.1) 10^6/uL Hgb (12.0-16.0) gm/dL Hct (36.0-48.0) % MCV (80.0-105.0) fL MCH (25.0-35.0) pg MCHC (31.0-37.0) g/dl RDW (11.5-14.5) % Plt Count (120.0-450.0) 10^3/uL MPV (7.0-11.0) fl Gran % (50.0-68.0) % Lymph % (Auto) (22.0-35.0) % [place] % (Auto) (1.0-6.0) % Eos % (Auto) (1.5-5.0) % Baso % (Auto) (0.0-3.0) % Gran # (1.4-6.5) Lymph # (1.2-3.4) [place] # (0.1-0.6) Eos # (0.0-0.7) Baso # (0.0-2.0) K/mm3 PT (9.9-11.8) Seconds INR (0.93-1.08) APTT (23.7-30.8) Seconds Protein C Activity (70-180) % Protein S Activity (60-140) % Factor V Activity 87 (65-150) % Sodium (132-148) mmol/L Potassium (3.6-5.0) mmol/L Chloride (98-107) mmol/L Carbon Dioxide (21-33) mmol/L Anion Gap (10-20) BUN (7-21) mg/dL Creatinine (0.5-1.4) mg/dL Est GFR ( Amer) Est GFR (Non-Af Amer) POC Glucose (mg/dL) (65-110) mg/dL Random Glucose (70-110) mg/dL Calcium (8.4-10.5) mg/dL Total Bilirubin (0.2-1.3) mg/dL AST (15-39) U/L ALT (7-56) U/L Alkaline Phosphatase (38-133) U/L Total Protein (5.8-8.3) g/dL Albumin (3.0-4.8) g/dL Globulin gm/dL Albumin/Globulin Ratio (1.1-1.8) Procalcitonin (0.19-0.49) NG/ML JAY Screen Positive H (Negative) JAY Titer 1:320 H (<1:40) Titer JAY Titer 2 TEST NOT PERFORMED JAY Pattern Nucleolar H JAY Pattern 2 TEST NOT PERFORMED Bvyk-3-Llgikqjjryyc Ab (<=20) MOUNA Beta-2 GPI IgG Ab (<=20) [facility] Beta-2 GPI IgM Ab (<=20) [facility] Phosphatidylserine IgG (<10) U/mL Phosphatidylserine IgA (<20) U/mL Phosphatidylserine IgM (<25) U/mL Anti-Phospholipid Intrp Anti-Cardiolipin IgG Ab (<=14) GPL Anti-Cardiolipin IgA Ab (<=11) APL Anti-Cardiolipin IgM Ab (<=12) MPL HIV 1&2 Ag/Ab, 4th Gen Nonreactive (Nonreactive) 03/15/17 03/15/17 Range/Units 18:05 18:05 WBC (4.5-11.0) 10^3/ul RBC (3.5-6.1) 10^6/uL Hgb (12.0-16.0) gm/dL Hct (36.0-48.0) % MCV (80.0-105.0) fL MCH (25.0-35.0) pg MCHC (31.0-37.0) g/dl RDW (11.5-14.5) % Plt Count (120.0-450.0) 10^3/uL MPV (7.0-11.0) fl Gran % (50.0-68.0) % Lymph % (Auto) (22.0-35.0) % [place] % (Auto) (1.0-6.0) % Eos % (Auto) (1.5-5.0) % Baso % (Auto) (0.0-3.0) % Gran # (1.4-6.5) Lymph # (1.2-3.4) [place] # (0.1-0.6) Eos # (0.0-0.7) Baso # (0.0-2.0) K/mm3 PT (9.9-11.8) Seconds INR (0.93-1.08) APTT (23.7-30.8) Seconds Protein C Activity 48 L (70-180) % Protein S Activity 16 L (60-140) % Factor V Activity (65-150) % Sodium (132-148) mmol/L Potassium (3.6-5.0) mmol/L Chloride (98-107) mmol/L Carbon Dioxide (21-33) mmol/L Anion Gap (10-20) BUN (7-21) mg/dL Creatinine (0.5-1.4) mg/dL Est GFR ( Amer) Est GFR (Non-Af Amer) POC Glucose (mg/dL) (65-110) mg/dL Random Glucose (70-110) mg/dL Calcium (8.4-10.5) mg/dL Total Bilirubin (0.2-1.3) mg/dL AST (15-39) U/L ALT (7-56) U/L Alkaline Phosphatase (38-133) U/L Total Protein (5.8-8.3) g/dL Albumin (3.0-4.8) g/dL Globulin gm/dL Albumin/Globulin Ratio (1.1-1.8) Procalcitonin (0.19-0.49) NG/ML JAY Screen (Negative) JAY Titer (<1:40) Titer JAY Titer 2 JAY Pattern JAY Pattern 2 Tmqk-9-Tnayutvcuadr Ab <9 (<=20) MOUNA Beta-2 GPI IgG Ab <9 (<=20) [facility] Beta-2 GPI IgM Ab <9 (<=20) [facility] Phosphatidylserine IgG <10 (<10) U/mL Phosphatidylserine IgA <20 (<20) U/mL Phosphatidylserine IgM <25 (<25) U/mL Anti-Phospholipid Intrp see note Anti-Cardiolipin IgG Ab <14 (<=14) GPL Anti-Cardiolipin IgA Ab <11 (<=11) APL Anti-Cardiolipin IgM Ab <12 (<=12) MPL HIV 1&2 Ag/Ab, 4th Gen (Nonreactive) Laboratory Results - last 24 hr 03/15/17 03/15/17 03/15/17 18:05 18:05 18:05 WBC RBC Hgb Hct MCV MCH MCHC RDW Plt Count MPV Gran % Lymph % (Auto) [place] % (Auto) Eos % (Auto) Baso % (Auto) Gran # Lymph # [place] # Eos # Baso # PT INR APTT Protein C Activity 48 L Protein S Activity 16 L Factor V Activity Sodium Potassium Chloride Carbon Dioxide Anion Gap BUN Creatinine Est GFR ( Amer) Est GFR (Non-Af Amer) POC Glucose (mg/dL) Random Glucose Calcium Total Bilirubin AST ALT Alkaline Phosphatase Total Protein Albumin Globulin Albumin/Globulin Ratio Procalcitonin JAY Screen Positive H JAY Titer 1:320 H JAY Titer 2 TEST NOT PERFORMED JAY Pattern Nucleolar H JAY Pattern 2 TEST NOT PERFORMED Qctu-1-Dklurfnrcwtf Ab <9 Beta-2 GPI IgG Ab <9 Beta-2 GPI IgM Ab <9 Phosphatidylserine IgG <10 Phosphatidylserine IgA <20 Phosphatidylserine IgM <25 Anti-Phospholipid Intrp see note Anti-Cardiolipin IgG Ab <14 Anti-Cardiolipin IgA Ab <11 Anti-Cardiolipin IgM Ab <12 HIV 1&2 Ag/Ab, 4th Gen 03/15/17 03/16/17 03/17/17 18:05 10:14 06:50 WBC RBC Hgb Hct MCV MCH MCHC RDW Plt Count MPV Gran % Lymph % (Auto) [place] % (Auto) Eos % (Auto) Baso % (Auto) Gran # Lymph # [place] # Eos # Baso # PT INR APTT Protein C Activity Protein S Activity Factor V Activity 87 Sodium Potassium Chloride Carbon Dioxide Anion Gap BUN Creatinine Est GFR ( Amer) Est GFR (Non-Af Amer) POC Glucose (mg/dL) Random Glucose Calcium Total Bilirubin AST ALT Alkaline Phosphatase Total Protein Albumin Globulin Albumin/Globulin Ratio Procalcitonin 0.19 JAY Screen JAY Titer JAY Titer 2 JAY Pattern JAY Pattern 2 Corn-2-Fbsaxqnqwkjz Ab Beta-2 GPI IgG Ab Beta-2 GPI IgM Ab Phosphatidylserine IgG Phosphatidylserine IgA Phosphatidylserine IgM Anti-Phospholipid Intrp Anti-Cardiolipin IgG Ab Anti-Cardiolipin IgA Ab Anti-Cardiolipin IgM Ab HIV 1&2 Ag/Ab, 4th Gen Nonreactive 03/17/17 03/17/17 03/17/17 10:40 11:39 17:59 WBC RBC Hgb Hct MCV MCH MCHC RDW Plt Count MPV Gran % Lymph % (Auto) [place] % (Auto) Eos % (Auto) Baso % (Auto) Gran # Lymph # [place] # Eos # Baso # PT 28.6 H INR 2.65 H APTT 48.6 H Protein C Activity Protein S Activity Factor V Activity Sodium Potassium Chloride Carbon Dioxide Anion Gap BUN Creatinine Est GFR ( Amer) Est GFR (Non-Af Amer) POC Glucose (mg/dL) 304 H 194 H Random Glucose Calcium Total Bilirubin AST ALT Alkaline Phosphatase Total Protein Albumin Globulin Albumin/Globulin Ratio Procalcitonin JAY Screen JAY Titer JAY Titer 2 JAY Pattern JAY Pattern 2 Mgmv-1-Zfyuhujfqwzw Ab Beta-2 GPI IgG Ab Beta-2 GPI IgM Ab Phosphatidylserine IgG Phosphatidylserine IgA Phosphatidylserine IgM Anti-Phospholipid Intrp Anti-Cardiolipin IgG Ab Anti-Cardiolipin IgA Ab Anti-Cardiolipin IgM Ab HIV 1&2 Ag/Ab, 4th Gen 03/17/17 03/18/17 03/18/17 21:32 00:20 05:30 WBC 16.1 H RBC 3.80 Hgb 9.3 L Hct 29.1 L MCV 76.6 L MCH 24.5 L MCHC 32.0 RDW 17.0 H Plt Count 490 H MPV 8.7 Gran % 61.5 Lymph % (Auto) 27.9 [place] % (Auto) 7.6 H Eos % (Auto) 2.7 Baso % (Auto) 0.3 Gran # 9.93 H Lymph # 4.5 H [place] # 1.2 H Eos # 0.4 Baso # 0.05 PT INR APTT 68.9 H Protein C Activity Protein S Activity Factor V Activity Sodium Potassium Chloride Carbon Dioxide Anion Gap BUN Creatinine Est GFR ( Amer) Est GFR (Non-Af Amer) POC Glucose (mg/dL) 265 H Random Glucose Calcium Total Bilirubin AST ALT Alkaline Phosphatase Total Protein Albumin Globulin Albumin/Globulin Ratio Procalcitonin JAY Screen JAY Titer JAY Titer 2 JAY Pattern JAY Pattern 2 Tfvb-3-Atcvxpeledvq Ab Beta-2 GPI IgG Ab Beta-2 GPI IgM Ab Phosphatidylserine IgG Phosphatidylserine IgA Phosphatidylserine IgM Anti-Phospholipid Intrp Anti-Cardiolipin IgG Ab Anti-Cardiolipin IgA Ab Anti-Cardiolipin IgM Ab HIV 1&2 Ag/Ab, 4th Gen 03/18/17 03/18/17 05:30 07:27 WBC RBC Hgb Hct MCV MCH MCHC RDW Plt Count MPV Gran % Lymph % (Auto) [place] % (Auto) Eos % (Auto) Baso % (Auto) Gran # Lymph # [place] # Eos # Baso # PT INR APTT Protein C Activity Protein S Activity Factor V Activity Sodium 136 Potassium 3.3 L Chloride 100 Carbon Dioxide 28 Anion Gap 11 BUN 12 Creatinine 0.7 Est GFR ( Amer) > 60 Est GFR (Non-Af Amer) > 60 POC Glucose (mg/dL) 184 H Random Glucose 152 H Calcium 8.0 L Total Bilirubin 1.0 AST 32 ALT 36 Alkaline Phosphatase 107 Total Protein 6.3 Albumin 2.9 L Globulin 3.3 Albumin/Globulin Ratio 0.9 L Procalcitonin JAY Screen JAY Titer JAY Titer 2 JAY Pattern JAY Pattern 2 Jlpk-9-Owgfphyvgosw Ab Beta-2 GPI IgG Ab Beta-2 GPI IgM Ab Phosphatidylserine IgG Phosphatidylserine IgA Phosphatidylserine IgM Anti-Phospholipid Intrp Anti-Cardiolipin IgG Ab Anti-Cardiolipin IgA Ab Anti-Cardiolipin IgM Ab HIV 1&2 Ag/Ab, 4th Gen Fingerstick Blood Sugar Results: 184 Review of Systems - EENT Eyes: UNREMARKABLE Ears: UNREMARKABLE Nose/Mouth/Throat: UNREMARKABLE - Cardiovascular Cardiovascular: UNREMARKABLE - Respiratory Respiratory: Cough - Gastrointestinal Gastrointestinal: UNREMARKABLE - Genitourinary Genitourinary: UNREMARKABLE - Musculoskeletal Musculoskeletal: UNREMARKABLE - Integumentary Integumentary: UNREMARKABLE - Neurological Neurological: UNREMARKABLE Critical Care Progress Note - Ventilator Checklist Head of Bed 30 Degrees: Yes Daily Sedation Vacation: Yes PUD Prophalyxis: Yes DVT Prophylaxis: Yes - Nutrition Nutrition: Nutrition Category Date Time Status Consistent Carbohydrate [DIET] Diets 03/15/17 Dinner Ordered Assessment/Plan - Assessment and Plan (Free Text) Assessment: 46 y/o F w/ Cardiomyopathy of undertermined origin External DEFIB in place. S/P R Chest tube placement for Hemothorax from likely Elevated INR. Repeat CT chest shows some residual atelectasis and pleural thickening. Minimal CT drainage. No further fevers. HGB stable. On treatment empirically for possible complicated parapneumonic effusion , not likely empyema . ID following w/ meropenum and Vancomycin. CX pending. Hypercoaguable work up currently resulting. HX of Lupus and is followed by [facility] in who started her on methotrexate 1 year prior. Protein & S LOW, will need HEME-ONC consult. With reduced EF, Hemothorax, hx of LUPUS , complicated course on Milrinone. Will need full work up and determination if AICD and Cardiac transplant work up should begin. Case d/w patient in detail. cc time 72 min
--- NOTE | 2017-03-18 10:28 | CP.PCM.PN ---
<Ector De La Rosa - Last Filed: 03/18/17 10:19> Subjective - Date & Time of Evaluation Date of Evaluation: 03/18/17 Time of Evaluation: 08:00 - Subjective Subjective: Medicine Progress note: Pt seen and examined at bedside. No acute events overnight. Her sob has much improved. Just some pain near chest tube insertion. Denies any leg pain. Denies any f/c/n/v/d. abd pain urinary or bm changes. Objective - Vital Signs/Intake and Output Vital Signs (last 24 hours): Temp Pulse Resp BP Pulse Ox 98.5 F 122 H 33 H 136/35 L 95 03/18/17 08:00 03/18/17 10:06 03/18/17 09:38 03/18/17 09:17 03/18/17 10:00 Intake and Output: 03/18/17 03/18/17 06:59 18:59 Intake Total 1455 Output Total 1070 Balance 385 - Medications Medications: Current Medications Acetaminophen (Tylenol 325mg Tab) 650 mg PO Q4H PRN PRN Reason: Fever >100.4 F Last Admin: 03/17/17 06:40 Dose: 650 mg Albuterol/Ipratropium (Duoneb 3 Mg/0.5 Mg (3 Ml) Ud) 3 ml IH Q2H PRN PRN Reason: Shortness of Breath Carvedilol (Coreg) 3.125 mg PO BID [facility] Last Admin: 03/18/17 09:13 Dose: 3.125 mg Digoxin (Lanoxin) 0.25 mg PO 1400 [facility] Last Admin: 03/17/17 15:07 Dose: 0.25 mg Furosemide (Lasix) 40 mg IV 0800,1400 [facility] Last Admin: 03/18/17 09:17 Dose: 40 mg Vancomycin HCl (Vancomycin 1gm) 1 gm in 250 mls @ 167 mls/hr IVPB Q12 [facility] PRN Reason: Protocol Last Admin: 03/17/17 22:26 Dose: 167 mls/hr Milrinone Lactate/Dextrose (Primacor 20mg/100ml D5w) 100 mls @ 7.103 mls/hr IV .Q14H5M PRN; Protocol; 0.2 MCG/KG/MIN PRN Reason: TITRATE PER MD ORDER Last Admin: 03/18/17 05:18 Dose: 0.2 mcg/kg/min, 7.103 mls/hr Doxycycline Hyclate 100 mg/ (Sodium Chloride) 100 mls @ 100 mls/hr IVPB Q12 [facility] PRN Reason: Protocol Last Admin: 03/18/17 09:15 Dose: 100 mls/hr Meropenem 1g/NS 100mL IVPB (Meropenem 1g/Ns 100ml Ivpb) 1 gm in 100 mls @ 100 mls/hr IVPB Q8 [facility] PRN Reason: Protocol Stop: 03/24/17 06:01 Last Admin: 03/18/17 05:17 Dose: 100 mls/hr Heparin Sodium/Dextrose (Heparin 25,000 Units/250ml In D5w) 25,000 units in 250 mls @ 10.124 mls/hr IV .Q24H PRN; Protocol; 9 UNITS/KG/HR PRN Reason: ADJUST RATE PER PROTOCOL Last Admin: 03/17/17 18:01 Dose: 9 units/kg/hr, 10.124 mls/hr Insulin Detemir (Levemir) 10 unit SC [facility] Last Admin: 03/17/17 22:24 Dose: 10 unit Insulin Human Lispro (Humalog High) 0 units SC ACHS [facility] PRN Reason: Protocol Last Admin: 03/18/17 08:15 Dose: 2 units Lisinopril (Zestril) 2.5 mg PO DAILY [facility] Last Admin: 03/18/17 09:12 Dose: 2.5 mg Magnesium Oxide (Mag-Ox) 400 mg PO BID [facility] Stop: 03/18/17 23:59 Last Admin: 03/18/17 09:14 Dose: 400 mg Morphine Sulfate (Morphine) 4 mg IVP Q4H PRN PRN Reason: Pain, moderate (4-7) Last Admin: 03/18/17 01:46 Dose: 4 mg Ondansetron HCl (Zofran Inj) 4 mg IVP Q6H PRN PRN Reason: Nausea/Vomiting Pantoprazole Sodium (Protonix Inj) 40 mg IVP BID [facility] Last Admin: 03/18/17 09:17 Dose: 40 mg Potassium Phos/Sodium Phos (Neutra-Phos) 1 pkt PO TID [facility] Stop: 03/18/17 23:00 Last Admin: 03/18/17 09:13 Dose: 1 pkt Spironolactone (Aldactone) 25 mg PO BID [facility] Last Admin: 03/18/17 09:14 Dose: 25 mg Verapamil HCl (Calan Tab) 40 mg PO TID [facility] Last Admin: 03/18/17 09:14 Dose: 40 mg - Labs Labs: 03/18/17 05:30 03/18/17 05:30 PT 28.6 Seconds (9.9-11.8) H 03/17/17 10:40 INR 2.65 (0.93-1.08) H 03/17/17 10:40 APTT 54.5 Seconds (23.7-30.8) H 03/18/17 09:13 - Constitutional Appears: No Acute Distress - Head Exam Head Exam: ATRAUMATIC, NORMAL INSPECTION, NORMOCEPHALIC - Eye Exam Eye Exam: EOMI, Normal appearance, PERRL Pupil Exam: NORMAL ACCOMODATION, PERRL - ENT Exam ENT Exam: Mucous Membranes Moist, Normal Exam - Neck Exam Neck Exam: Full ROM, Normal Inspection. absent: Lymphadenopathy - Respiratory Exam Respiratory Exam: Clear to Ausculation Bilateral, NORMAL BREATHING PATTERN. absent: Wheezes - Cardiovascular Exam Cardiovascular Exam: REGULAR RHYTHM, RRR, +S1, +S2. absent: Murmur - GI/Abdominal Exam GI & Abdominal Exam: Soft, Normal Bowel Sounds. absent: Distended, Tenderness - Extremities Exam Extremities Exam: Full ROM, Normal Capillary Refill, Normal Inspection. absent : Calf Tenderness, Joint Swelling, Pedal Edema - Back Exam Back Exam: NORMAL INSPECTION - Neurological Exam Neurological Exam: Alert, Awake, CN II-XII Intact, Normal Gait, Oriented x3 - Psychiatric Exam Psychiatric exam: Normal Affect, Normal Mood - Skin Skin Exam: Dry, Intact, Normal Color, Warm Assessment and Plan - Assessment and Plan (Free Text) Assessment: 46 yo with severe dilated cardiomyopathy with severe LV systolic dysfunction admitted to the ICU for acute respiratory distress, anemia, and a supratherapeutic INR 1. acute respiratory distress 2/2 Empyema vs. Hemothorax vs pna - Duoneb - CT chest: significant dec in size of pleural effusion , reexpansion of RU lung , partial expansion of R middle and RL lung. -Consulted surgery - right chest tube placement, monitor output -F/u pleural fluid cultures, blood cx x 2 negative -ID consult - merro , vancomycin and doxy -Cont. Duoneb prn 2. Dilated cardiomyopathy with severe LV systolic dysfunction -MUGA scan: mod LV dysfunction w difusse hypokinessi LVEF 37% -Heparin ggt started - pmh of LV thrombus -Echo revealed no LV thrombus, EF 15% with dilated and severe systolic dys -Consulted cardiology - rec anticoagulation after dc chest tube and possible EP evaluation, Cont Milrinone, Lisinopril, Carvedilol, digoxin, verapamil, Aldactone -Monitor INR 3. Hypokalemia - K of 3.3 - KCl 40meq repleted - cont to monitor 4. Left leg pain -Extremity US negative for DVT -Morphine 4q4 prn 5. Insulin dependent diabetes mellitus -Levemir 10 units -Humalog ISS as protocol 6. GI/DVT PPx -Protonix -Lovenox Patient and plan was seen and discussed in detail with Dr. Martins. <Rob Martins - Last Filed: 03/18/17 13:01> Objective - Vital Signs/Intake and Output Vital Signs (last 24 hours): Temp Pulse Resp BP Pulse Ox 97.8 F 110 H 34 H 113/59 L 95 03/18/17 12:00 03/18/17 12:45 03/18/17 12:45 03/18/17 12:00 03/18/17 12:15 Intake and Output: 03/18/17 03/18/17 06:59 18:59 Intake Total 1455 Output Total 1070 Balance 385 - Medications Medications: Current Medications Acetaminophen (Tylenol 325mg Tab) 650 mg PO Q4H PRN PRN Reason: Fever >100.4 F Last Admin: 03/17/17 06:40 Dose: 650 mg Albuterol/Ipratropium (Duoneb 3 Mg/0.5 Mg (3 Ml) Ud) 3 ml IH Q2H PRN PRN Reason: Shortness of Breath Carvedilol (Coreg) 3.125 mg PO BID [facility] Last Admin: 03/18/17 09:13 Dose: 3.125 mg Digoxin (Lanoxin) 0.25 mg PO 1400 [facility] Last Admin: 03/17/17 15:07 Dose: 0.25 mg Furosemide (Lasix) 40 mg IV 0800,1400 [facility] Last Admin: 03/18/17 09:17 Dose: 40 mg Vancomycin HCl (Vancomycin 1gm) 1 gm in 250 mls @ 167 mls/hr IVPB Q12 [facility] PRN Reason: Protocol Last Admin: 03/18/17 10:59 Dose: 167 mls/hr Milrinone Lactate/Dextrose (Primacor 20mg/100ml D5w) 100 mls @ 7.103 mls/hr IV .Q14H5M PRN; Protocol; 0.2 MCG/KG/MIN PRN Reason: TITRATE PER MD ORDER Last Admin: 03/18/17 05:18 Dose: 0.2 mcg/kg/min, 7.103 mls/hr Doxycycline Hyclate 100 mg/ (Sodium Chloride) 100 mls @ 100 mls/hr IVPB Q12 [facility] PRN Reason: Protocol Last Admin: 03/18/17 09:15 Dose: 100 mls/hr Meropenem 1g/NS 100mL IVPB (Meropenem 1g/Ns 100ml Ivpb) 1 gm in 100 mls @ 100 mls/hr IVPB Q8 [facility] PRN Reason: Protocol Stop: 03/24/17 06:01 Last Admin: 03/18/17 05:17 Dose: 100 mls/hr Heparin Sodium/Dextrose (Heparin 25,000 Units/250ml In D5w) 25,000 units in 250 mls @ 10.124 mls/hr IV .Q24H PRN; Protocol; 9 UNITS/KG/HR PRN Reason: ADJUST RATE PER PROTOCOL Last Admin: 03/17/17 18:01 Dose: 9 units/kg/hr, 10.124 mls/hr Insulin Detemir (Levemir) 10 unit SC HS [facility] Last Admin: 03/17/17 22:24 Dose: 10 unit Insulin Human Lispro (Humalog High) 0 units SC ACHS [facility] PRN Reason: Protocol Last Admin: 03/18/17 11:48 Dose: 10 units Lisinopril (Zestril) 2.5 mg PO DAILY [facility] Last Admin: 03/18/17 09:12 Dose: 2.5 mg Magnesium Oxide (Mag-Ox) 400 mg PO BID [facility] Stop: 03/18/17 23:59 Last Admin: 03/18/17 09:14 Dose: 400 mg Morphine Sulfate (Morphine) 4 mg IVP Q4H PRN PRN Reason: Pain, moderate (4-7) Last Admin: 03/18/17 10:41 Dose: 4 mg Ondansetron HCl (Zofran Inj) 4 mg IVP Q6H PRN PRN Reason: Nausea/Vomiting Pantoprazole Sodium (Protonix Inj) 40 mg IVP BID [facility] Last Admin: 03/18/17 09:17 Dose: 40 mg Potassium Phos/Sodium Phos (Neutra-Phos) 1 pkt PO TID [facility] Stop: 03/18/17 23:00 Last Admin: 03/18/17 09:13 Dose: 1 pkt Spironolactone (Aldactone) 25 mg PO BID [facility] Last Admin: 03/18/17 09:14 Dose: 25 mg Verapamil HCl (Calan Tab) 40 mg PO TID [facility] Last Admin: 03/18/17 09:14 Dose: 40 mg - Labs Labs: 03/18/17 05:30 03/18/17 05:30 PT 28.6 Seconds (9.9-11.8) H 03/17/17 10:40 INR 2.65 (0.93-1.08) H 03/17/17 10:40 APTT 54.5 Seconds (23.7-30.8) H 03/18/17 09:13 Attending/Attestation - Attestation I have personally seen and examined this patient.: Yes I have fully participated in the care of the patient.: Yes I have reviewed all pertinent clinical information, including history, physical exam and plan: Yes Notes (Text): 03/18/17 12:59 46 year old female with past medical history of cardiac thrombus, dilated cardiomyopathy and diabetes who presented with sepsis and respiratory distress. She was found to have large right pleural effusion and supratherapeutic INR. She is s/p chest tube. 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 Repeat CXR and CT chest was reviewed. She is on iv antibiotics as per ID. Repeat echocardiogram was reviewed; no cardiac thrombus was seen. MUGA scan was also reviewed. She was started on heparin drip for anticoagulation. Hematology evaluation is requested. Cardiology is also following and she is on primacor, lasix, coreg, digoxin, lisinopril, and spironalactone. She is on levemir and insulin ss for diabetes. Will replete and repeat potassium. Rob Martins MD Hospitalist.
[2017-03-18] MEDS: Vancomycin 1gm in NS 250ml 1 GM/250 ML BAG IVPB SCH ×2 (10:59→22:31)
--- NOTE | 2017-03-18 12:19 | CP.PCM.PN ---
Subjective - Date & Time of Evaluation Date of Evaluation: 03/18/17 Time of Evaluation: 11:40 - Subjective Subjective: Patient is breathing better, no fevers overnight. Objective - Vital Signs/Intake and Output Vital Signs (last 24 hours): Temp Pulse Resp BP Pulse Ox 98.9 F 99 H 20 118/80 94 L 03/18/17 04:00 03/18/17 05:00 03/18/17 04:00 03/18/17 05:00 03/18/17 05:00 Intake and Output: 03/18/17 03/18/17 06:59 18:59 Intake Total 100 Balance 100 - Medications Medications: Current Medications Acetaminophen (Tylenol 325mg Tab) 650 mg PO Q4H PRN PRN Reason: Fever >100.4 F Last Admin: 03/17/17 06:40 Dose: 650 mg Albuterol/Ipratropium (Duoneb 3 Mg/0.5 Mg (3 Ml) Ud) 3 ml IH Q2H PRN PRN Reason: Shortness of Breath Carvedilol (Coreg) 3.125 mg PO BID [facility] Last Admin: 03/17/17 18:25 Dose: 3.125 mg Digoxin (Lanoxin) 0.25 mg PO 1400 [facility] Last Admin: 03/17/17 15:07 Dose: 0.25 mg Furosemide (Lasix) 40 mg IV 0800,1400 [facility] Last Admin: 03/17/17 14:55 Dose: 40 mg Vancomycin HCl (Vancomycin 1gm) 1 gm in 250 mls @ 167 mls/hr IVPB Q12 [facility] PRN Reason: Protocol Last Admin: 03/17/17 22:26 Dose: 167 mls/hr Milrinone Lactate/Dextrose (Primacor 20mg/100ml D5w) 100 mls @ 7.103 mls/hr IV .Q14H5M PRN; Protocol; 0.2 MCG/KG/MIN PRN Reason: TITRATE PER MD ORDER Last Admin: 03/18/17 05:18 Dose: 0.2 mcg/kg/min, 7.103 mls/hr Doxycycline Hyclate 100 mg/ (Sodium Chloride) 100 mls @ 100 mls/hr IVPB Q12 [facility] PRN Reason: Protocol Last Admin: 03/17/17 22:24 Dose: 100 mls/hr Meropenem 1g/NS 100mL IVPB (Meropenem 1g/Ns 100ml Ivpb) 1 gm in 100 mls @ 100 mls/hr IVPB Q8 [facility] PRN Reason: Protocol Stop: 03/24/17 06:01 Last Admin: 03/18/17 05:17 Dose: 100 mls/hr Heparin Sodium/Dextrose (Heparin 25,000 Units/250ml In D5w) 25,000 units in 250 mls @ 10.124 mls/hr IV .Q24H PRN; Protocol; 9 UNITS/KG/HR PRN Reason: ADJUST RATE PER PROTOCOL Last Admin: 03/17/17 18:01 Dose: 9 units/kg/hr, 10.124 mls/hr Potassium Chloride (Potassium Chloride 20 Meq/100 Ml) 20 meq in 100 mls @ 50 mls/hr IVPB Q2H [facility] Stop: 03/18/17 11:29 Insulin Detemir (Levemir) 10 unit SC [facility] Last Admin: 03/17/17 22:24 Dose: 10 unit Insulin Human Lispro (Humalog High) 0 units SC [facility] PRN Reason: Protocol Last Admin: 03/17/17 21:40 Dose: Not Given Lisinopril (Zestril) 2.5 mg PO DAILY [facility] Last Admin: 03/17/17 10:43 Dose: 2.5 mg Magnesium Oxide (Mag-Ox) 400 mg PO BID [facility] Stop: 03/18/17 23:59 Last Admin: 03/17/17 18:00 Dose: 400 mg Morphine Sulfate (Morphine) 4 mg IVP Q4H PRN PRN Reason: Pain, moderate (4-7) Last Admin: 03/18/17 01:46 Dose: 4 mg Ondansetron HCl (Zofran Inj) 4 mg IVP Q6H PRN PRN Reason: Nausea/Vomiting Pantoprazole Sodium (Protonix Inj) 40 mg IVP BID [facility] Last Admin: 03/17/17 09:03 Dose: 40 mg Potassium Phos/Sodium Phos (Neutra-Phos) 1 pkt PO TID [facility] Stop: 03/18/17 23:00 Last Admin: 03/17/17 15:21 Dose: 1 pkt Spironolactone (Aldactone) 25 mg PO BID [facility] Last Admin: 03/17/17 17:59 Dose: 25 mg Verapamil HCl (Calan Tab) 40 mg PO TID [facility] Last Admin: 03/17/17 17:59 Dose: 40 mg - Labs Labs: 03/18/17 05:30 03/18/17 05:30 PT 28.6 Seconds (9.9-11.8) H 03/17/17 10:40 INR 2.65 (0.93-1.08) H 03/17/17 10:40 APTT 68.9 Seconds (23.7-30.8) H 03/18/17 00:20 - Constitutional Appears: Non-toxic, No Acute Distress - Head Exam Head Exam: NORMAL INSPECTION - Respiratory Exam Respiratory Exam: Decreased Breath Sounds - Cardiovascular Exam Cardiovascular Exam: +S1, +S2 - GI/Abdominal Exam GI & Abdominal Exam: Soft. absent: Tenderness Assessment and Plan - Assessment and Plan (Free Text) Plan: Assessment Systemic Inflammatory Response Syndrome, consider due to right sided pleural effusion, etiology to be determined, consider right sided healthcare-associated pneumonia S/P chest tube placement POD #3 systemic lupus erythematosus morbid obesity with BMI 41 DM asthma history of migraine headaches history of spinal stenosis history of ectopic Plan continue Doxycycline, Vancomycin (day 4) and Merrem; repeat blood cx are negative x 24 hours (1st blood cx are negative), pleural fluid cultures are also negative; PCT is only 0.18; reviewed repeat CT chest will continue to monitor clinically
--- NOTE | 2017-03-18 12:25 | CP.PCM.PN ---
Subjective - Date & Time of Evaluation Date of Evaluation: 03/18/17 Time of Evaluation: 12:20 - Subjective Subjective: SOB Sinus Tachy No c/p Objective - Vital Signs/Intake and Output Vital Signs (last 24 hours): Temp Pulse Resp BP Pulse Ox 98.5 F 122 H 33 H 136/35 L 95 03/18/17 08:00 03/18/17 10:06 03/18/17 09:38 03/18/17 09:17 03/18/17 10:00 Intake and Output: 03/18/17 03/18/17 06:59 18:59 Intake Total 1455 Output Total 1070 Balance 385 - Medications Medications: Current Medications Acetaminophen (Tylenol 325mg Tab) 650 mg PO Q4H PRN PRN Reason: Fever >100.4 F Last Admin: 03/17/17 06:40 Dose: 650 mg Albuterol/Ipratropium (Duoneb 3 Mg/0.5 Mg (3 Ml) Ud) 3 ml IH Q2H PRN PRN Reason: Shortness of Breath Carvedilol (Coreg) 3.125 mg PO BID [facility] Last Admin: 03/18/17 09:13 Dose: 3.125 mg Digoxin (Lanoxin) 0.25 mg PO 1400 [facility] Last Admin: 03/17/17 15:07 Dose: 0.25 mg Furosemide (Lasix) 40 mg IV 0800,1400 [facility] Last Admin: 03/18/17 09:17 Dose: 40 mg Vancomycin HCl (Vancomycin 1gm) 1 gm in 250 mls @ 167 mls/hr IVPB Q12 [facility] PRN Reason: Protocol Last Admin: 03/18/17 10:59 Dose: 167 mls/hr Milrinone Lactate/Dextrose (Primacor 20mg/100ml D5w) 100 mls @ 7.103 mls/hr IV .Q14H5M PRN; Protocol; 0.2 MCG/KG/MIN PRN Reason: TITRATE PER MD ORDER Last Admin: 03/18/17 05:18 Dose: 0.2 mcg/kg/min, 7.103 mls/hr Doxycycline Hyclate 100 mg/ (Sodium Chloride) 100 mls @ 100 mls/hr IVPB Q12 [facility] PRN Reason: Protocol Last Admin: 03/18/17 09:15 Dose: 100 mls/hr Meropenem 1g/NS 100mL IVPB (Meropenem 1g/Ns 100ml Ivpb) 1 gm in 100 mls @ 100 mls/hr IVPB Q8 [facility] PRN Reason: Protocol Stop: 03/24/17 06:01 Last Admin: 03/18/17 05:17 Dose: 100 mls/hr Heparin Sodium/Dextrose (Heparin 25,000 Units/250ml In D5w) 25,000 units in 250 mls @ 10.124 mls/hr IV .Q24H PRN; Protocol; 9 UNITS/KG/HR PRN Reason: ADJUST RATE PER PROTOCOL Last Admin: 03/17/17 18:01 Dose: 9 units/kg/hr, 10.124 mls/hr Insulin Detemir (Levemir) 10 unit SC HS [facility] Last Admin: 03/17/17 22:24 Dose: 10 unit Insulin Human Lispro (Humalog High) 0 units SC ACHS [facility] PRN Reason: Protocol Last Admin: 03/18/17 11:48 Dose: 10 units Lisinopril (Zestril) 2.5 mg PO DAILY [facility] Last Admin: 03/18/17 09:12 Dose: 2.5 mg Magnesium Oxide (Mag-Ox) 400 mg PO BID [facility] Stop: 03/18/17 23:59 Last Admin: 03/18/17 09:14 Dose: 400 mg Morphine Sulfate (Morphine) 4 mg IVP Q4H PRN PRN Reason: Pain, moderate (4-7) Last Admin: 03/18/17 10:41 Dose: 4 mg Ondansetron HCl (Zofran Inj) 4 mg IVP Q6H PRN PRN Reason: Nausea/Vomiting Pantoprazole Sodium (Protonix Inj) 40 mg IVP BID [facility] Last Admin: 03/18/17 09:17 Dose: 40 mg Potassium Phos/Sodium Phos (Neutra-Phos) 1 pkt PO TID [facility] Stop: 03/18/17 23:00 Last Admin: 03/18/17 09:13 Dose: 1 pkt Spironolactone (Aldactone) 25 mg PO BID [facility] Last Admin: 03/18/17 09:14 Dose: 25 mg Verapamil HCl (Calan Tab) 40 mg PO TID [facility] Last Admin: 03/18/17 09:14 Dose: 40 mg - Labs Labs: 03/18/17 05:30 03/18/17 05:30 PT 28.6 Seconds (9.9-11.8) H 03/17/17 10:40 INR 2.65 (0.93-1.08) H 03/17/17 10:40 APTT 54.5 Seconds (23.7-30.8) H 03/18/17 09:13 - Head Exam Head Exam: ATRAUMATIC - Eye Exam Eye Exam: Normal appearance - Respiratory Exam Respiratory Exam: Decreased Breath Sounds - Cardiovascular Exam Cardiovascular Exam: REGULAR RHYTHM - Extremities Exam Extremities Exam: Normal Inspection Assessment and Plan - Assessment and Plan (Free Text) Assessment: nonischemic CM Plueural effusion s/p Rt. CT placement Anemia HypoK+ Obesity Plan: Cont Acetaminophen (Tylenol 325mg Tab) 650 mg PO Q4H PRN PRN Reason: Fever >100.4 F Last Admin: 03/17/17 06:40 Dose: 650 mg Albuterol/Ipratropium (Duoneb 3 Mg/0.5 Mg (3 Ml) Ud) 3 ml IH Q2H PRN PRN Reason: Shortness of Breath Carvedilol (Coreg) 3.125 mg PO BID [facility] Last Admin: 03/18/17 09:13 Dose: 3.125 mg Digoxin (Lanoxin) 0.25 mg PO 1400 [facility] Last Admin: 03/17/17 15:07 Dose: 0.25 mg Furosemide (Lasix) 40 mg IV 0800,1400 [facility] Last Admin: 03/18/17 09:17 Dose: 40 mg Vancomycin HCl (Vancomycin 1gm) 1 gm in 250 mls @ 167 mls/hr IVPB Q12 [facility] PRN Reason: Protocol Last Admin: 03/18/17 10:59 Dose: 167 mls/hr Milrinone Lactate/Dextrose (Primacor 20mg/100ml D5w) 100 mls @ 7.103 mls/hr IV .Q14H5M PRN; Protocol; 0.2 MCG/KG/MIN PRN Reason: TITRATE PER MD ORDER Last Admin: 03/18/17 05:18 Dose: 0.2 mcg/kg/min, 7.103 mls/hr Doxycycline Hyclate 100 mg/ (Sodium Chloride) 100 mls @ 100 mls/hr IVPB Q12 [facility] PRN Reason: Protocol Last Admin: 03/18/17 09:15 Dose: 100 mls/hr Meropenem 1g/NS 100mL IVPB (Meropenem 1g/Ns 100ml Ivpb) 1 gm in 100 mls @ 100 mls/hr IVPB Q8 [facility] PRN Reason: Protocol Stop: 03/24/17 06:01 Last Admin: 03/18/17 05:17 Dose: 100 mls/hr Heparin Sodium/Dextrose (Heparin 25,000 Units/250ml In D5w) 25,000 units in 250 mls @ 10.124 mls/hr IV .Q24H PRN; Protocol; 9 UNITS/KG/HR PRN Reason: ADJUST RATE PER PROTOCOL Last Admin: 03/17/17 18:01 Dose: 9 units/kg/hr, 10.124 mls/hr Insulin Detemir (Levemir) 10 unit SC HS [facility] Last Admin: 03/17/17 22:24 Dose: 10 unit Insulin Human Lispro (Humalog High) 0 units SC [facility] PRN Reason: Protocol Last Admin: 03/18/17 11:48 Dose: 10 units Lisinopril (Zestril) 2.5 mg PO DAILY [facility] Last Admin: 03/18/17 09:12 Dose: 2.5 mg Magnesium Oxide (Mag-Ox) 400 mg PO BID [facility] Stop: 03/18/17 23:59 Last Admin: 03/18/17 09:14 Dose: 400 mg Morphine Sulfate (Morphine) 4 mg IVP Q4H PRN PRN Reason: Pain, moderate (4-7) Last Admin: 03/18/17 10:41 Dose: 4 mg Ondansetron HCl (Zofran Inj) 4 mg IVP Q6H PRN PRN Reason: Nausea/Vomiting Pantoprazole Sodium (Protonix Inj) 40 mg IVP BID [facility] Last Admin: 03/18/17 09:17 Dose: 40 mg Potassium Phos/Sodium Phos (Neutra-Phos) 1 pkt PO TID [facility] Stop: 03/18/17 23:00 Last Admin: 03/18/17 09:13 Dose: 1 pkt Spironolactone (Aldactone) 25 mg PO BID [facility] Last Admin: 03/18/17 09:14 Dose: 25 mg Verapamil HCl (Calan Tab) 40 mg PO TID [facility] Last Admin: 03/18/17 09:14 Dose: 40 mg KDur 40 mEq was given today
[2017-03-18] MEDS: Digoxin 250 mcg (0.25 mg) Tab PO SCH (14:04)
[2017-03-18] MEDS: Heparin 25,000units in D5W 25,000 UNITS/250 ML BAG IV PRN (14:35)
[2017-03-18] MEDS: Insulin Detemir 100 units/ml Vial (Levemir) SC SCH (22:29)
--- NOTE | 2017-03-19 02:26 | CP.PCM.CON ---
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 She denies a history of blood clots in the past. She did have some hemoptysis for a few days prior to coming to the hospital which she attributes to a chronic cough. Past medical history: DM, HTN, asthma, SLE Past medical history: Ectopic , D+C Family history: Grandmother had breast cancer Social history: Denies tobacco, alcohol, and illicit drug use. Allergies: NKA Review of systems: All remaining review of systems including HEENT, cardiovascular, respiratory, gastrointestinal, genitourinary, musculoskeletal, dermatologic, neurologic, and psychiatric are negative unless mentioned in the HPI. Past Patient History - Infectious Disease Hx of Infectious Diseases: None - Past Social History Smoking Status: Never Smoked - CARDIAC Hx Cardiac Disorders: No Hx Angina: No Hx Cardia Arrhythmia: No Hx Circulatory Problems: No Hx Congestive Heart Failure: No Hx Heart Murmur: No Hx Heart Transplant: No Hx Hypercholesterolemia: Yes Hx Hypertension: Yes Hx Internal Defibrillator: No Hx Mitral Valve Prolapse: No Hx Pacemaker: No Hx Peripheral Edema: No Hx Peripheral Vascular Disease: No Other/Comment: external defib: Life Vest. Clot in heart - PULMONARY Hx Respiratory Disorders: Yes Hx Asthma: Yes Hx Bronchitis: Yes Hx Chronic Obstructive Pulmonary Disease (COPD): No Hx Emphysema: No Hx Pneumonia: Yes Hx Respiratory Aspiration: No Hx Respiratory Tract Infection: No Hx Sleep Apnea: No Hx Tuberculosis: No - NEUROLOGICAL Hx Neurological Disorder: Yes Hx Alzheimer's Disease: No HX Cerebrovascular Accident: No Hx Dementia: No Hx Dizziness: No Hx Meningitis: No Hx Migraine: Yes Hx Parkinson's Disease: No Hx Seizures: No Hx Transient Ischemic Attacks (TIA): No - HEENT Hx HEENT Problems: No Hx Blind: No Hx Cataracts: Yes (bilat cataract sx jun 2016) Hx Deafness: No Hx Difficulty Chewing: No Hx Epistaxis: No Hx Glaucoma: No Hx Macular Degeneration: No - RENAL Hx Chronic Kidney Disease: No Hx Dialysis: No Hx Kidney Stones: No Hx Neurogenic Bladder: No Hx Pyelonephritis: No Hx Renal (Kidney) Cancer: No Hx Renal Failure: No - ENDOCRINE/METABOLIC Hx Endocrine Disorders: Yes Hx Adrenal Cancer: No Hx Diabetes Insipidus: No Hx Diabetes Mellitus Type 1: No Hx Diabetes Mellitus Type 2: Yes Hx Hyperthyroidism: No Hx Hypothyroidism: No Hx Systemic Lupus Erythematosus: Yes Other/Comment: pituitary adenoma - HEMATOLOGICAL/ONCOLOGICAL Hx Blood Disorders: No Hx AIDS: No Hx Anemia: No Hx Cancer: No Hx Chemotherapy: No Hx Cirrhosis: No Hx Hemophilia: No Hx Hepatitis A: No Hx Hepatitis B: No Hx Hepatitis C: No Hx Human Immunodeficiency Virus (HIV): No Hx Metastesis: No Hx Shingles: No Hx Sickle Cell Disease: No Hx Unexplained Bleeding: No - INTEGUMENTARY Hx Dermatological Problems: No Hx Basil Cell: No Hx Eczema: No Hx Melanoma: No Hx Psoriasis: No Hx Squamous Cell: No - MUSCULOSKELETAL/RHEUMATOLOGICAL Hx Musculoskeletal Disorders: Yes Hx Arthritis: No Hx Back Pain: Yes Hx Degenerative Joint Disease: Yes Hx Falls: Yes Hx Fractures: No Hx Gout: No Hx Herniated Disk: No Hx Myasthenia Gravis: No Hx Osteoarthritis: No Hx Osteomyelitis: No Hx Osteoporosis: No Hx Rhabdomyolysis: No Hx Spinal Stenosis: Yes Hx Unsteady Gait: No - GASTROINTESTINAL Hx Gastrointestinal Disorders: No Hx Colostomy: No Hx Crohn's Disease: No Hx Diverticulitis: No Hx Gall Bladder Disease: No Hx Gastroesophageal Reflux: No Hx Ileostomy: No Hx Liver Failure: No Hx Pancreatitis: No HX Swallowing Problems: No Hx Ulcer: No - GENITOURINARY/GYNECOLOGICAL Hx Genitourinary Disorders: No Hx Hematuria: No Hx Incontinence: No Hx Sexually Transmitted Disorders: No Other/Comment: ectopic then tubal ligation - PSYCHIATRIC Hx Psychophysiologic Disorder: No Hx Anxiety: No Hx Bipolar Disorder: No Hx Depression: No Hx Emotional Abuse: No Hx Hallucinations: No Hx Panic Symptoms: No Hx Paranoia: No Hx Post Traumatic Stress Disorder: No Hx Psychosis: No Hx Physical Abuse: No Hx Schizophrenia: No Hx Sexual Abuse: No - SURGICAL HISTORY Hx Surgeries: Yes Hx Cardiac Catheterization: No Hx Coronary Stent: No Other/Comment: Eptopic Preg - ANESTHESIA Hx Anesthesia: Yes Hx Anesthesia Reactions: No Meds Allergies/Adverse Reactions: Allergies Allergy/AdvReac Type Severity Reaction Status Date / Time No Known Allergies Allergy Verified 03/14/17 20:31 - Medications Medications: Current Medications Acetaminophen (Tylenol 325mg Tab) 650 mg PO Q4H PRN PRN Reason: Fever >100.4 F Last Admin: 03/17/17 06:40 Dose: 650 mg Albuterol/Ipratropium (Duoneb 3 Mg/0.5 Mg (3 Ml) Ud) 3 ml IH Q2H PRN PRN Reason: Shortness of Breath Carvedilol (Coreg) 3.125 mg PO BID [facility] Last Admin: 03/18/17 17:38 Dose: 3.125 mg Digoxin (Lanoxin) 0.25 mg PO 1400 [facility] Last Admin: 03/18/17 14:04 Dose: 0.25 mg Furosemide (Lasix) 40 mg IV 0800,1400 [facility] Last Admin: 03/18/17 14:03 Dose: 40 mg Vancomycin HCl (Vancomycin 1gm) 1 gm in 250 mls @ 167 mls/hr IVPB Q12 [facility] PRN Reason: Protocol Last Admin: 03/18/17 22:31 Dose: 167 mls/hr Milrinone Lactate/Dextrose (Primacor 20mg/100ml D5w) 100 mls @ 7.103 mls/hr IV .Q14H5M PRN; Protocol; 0.2 MCG/KG/MIN PRN Reason: TITRATE PER MD ORDER Last Admin: 03/18/17 18:15 Dose: 0.2 mcg/kg/min, 7.103 mls/hr Doxycycline Hyclate 100 mg/ (Sodium Chloride) 100 mls @ 100 mls/hr IVPB Q12 [facility] PRN Reason: Protocol Last Admin: 03/18/17 22:00 Dose: 100 mls/hr Meropenem 1g/NS 100mL IVPB (Meropenem 1g/Ns 100ml Ivpb) 1 gm in 100 mls @ 100 mls/hr IVPB Q8 [facility] PRN Reason: Protocol Stop: 03/24/17 06:01 Last Admin: 03/18/17 22:00 Dose: 100 mls/hr Heparin Sodium/Dextrose (Heparin 25,000 Units/250ml In D5w) 25,000 units in 250 mls @ 10.124 mls/hr IV .Q24H PRN; Protocol; 9 UNITS/KG/HR PRN Reason: ADJUST RATE PER PROTOCOL Last Admin: 03/18/17 14:35 Dose: 9 units/kg/hr, 10.124 mls/hr Insulin Detemir (Levemir) 10 unit SC HS [facility] Last Admin: 03/18/17 22:29 Dose: 10 unit Insulin Human Lispro (Humalog High) 0 units SC ACHS [facility] PRN Reason: Protocol Last Admin: 03/18/17 22:28 Dose: Not Given Lisinopril (Zestril) 2.5 mg PO DAILY [facility] Last Admin: 03/18/17 09:12 Dose: 2.5 mg Morphine Sulfate (Morphine) 4 mg IVP Q4H PRN PRN Reason: Pain, moderate (4-7) Last Admin: 03/18/17 16:45 Dose: 4 mg Ondansetron HCl (Zofran Inj) 4 mg IVP Q6H PRN PRN Reason: Nausea/Vomiting Pantoprazole Sodium (Protonix Ec Tab) 40 mg PO 0600,1630 [facility] Spironolactone (Aldactone) 25 mg PO BID [facility] Last Admin: 03/18/17 17:38 Dose: 25 mg Verapamil HCl (Calan Tab) 40 mg PO TID [facility] Last Admin: 03/18/17 17:38 Dose: 40 mg Physical Exam - Head Exam Head Exam: ATRAUMATIC - Eye Exam Eye Exam: Normal appearance - ENT Exam ENT Exam: Mucous Membranes Dry - Respiratory Exam Respiratory Exam: NORMAL BREATHING PATTERN - Cardiovascular Exam Cardiovascular Exam: +S1, +S2 - GI/Abdominal Exam GI & Abdominal Exam: Normal Bowel Sounds - Extremities Exam Extremities exam: Positive for: normal inspection - Neurological Exam Neurological exam: Oriented x3 - Psychiatric Exam Psychiatric exam: Normal Affect, Normal Mood - Skin Skin Exam: Warm Results - Vital Signs Recent Vital Signs: Last Vital Signs Temp 99 F 03/19/17 00:00 Pulse 103 H 03/19/17 01:56 Resp 22 03/19/17 01:45 BP 140/83 03/19/17 01:00 Pulse Ox 97 03/19/17 01:45 - Labs Result Diagrams: 03/18/17 05:30 03/18/17 05:30 Labs: Laboratory Results - last 24 hr 03/15/17 03/15/17 03/15/17 18:05 18:05 18:05 WBC RBC Hgb Hct MCV MCH MCHC RDW Plt Count MPV Gran % Lymph % (Auto) Wolfe % (Auto) Eos % (Auto) Baso % (Auto) Gran # Lymph # Wolfe # Eos # Baso # APTT Protein C Antigen 73 Sodium Potassium Chloride Carbon Dioxide Anion Gap BUN Creatinine Est GFR ( Amer) Est GFR (Non-Af Amer) POC Glucose (mg/dL) Random Glucose Calcium Total Bilirubin AST ALT Alkaline Phosphatase Total Protein Albumin Globulin Albumin/Globulin Ratio ANCA Screen Negative c-ANCA Titer TNP p-ANCA Titer TNP Atypical p-ANCA Titer TNP Phosphatidylserine IgG <10 Phosphatidylserine IgA <20 Phosphatidylserine IgM <25 Anti-Phospholipid Intrp see note Anti-Cardiolipin IgG Ab <14 Anti-Cardiolipin IgA Ab <11 Anti-Cardiolipin IgM Ab <12 03/18/17 03/18/17 03/18/17 05:30 05:30 07:27 WBC 16.1 H RBC 3.80 Hgb 9.3 L Hct 29.1 L MCV 76.6 L MCH 24.5 L MCHC 32.0 RDW 17.0 H Plt Count 490 H MPV 8.7 Gran % 61.5 Lymph % (Auto) 27.9 Wolfe % (Auto) 7.6 H Eos % (Auto) 2.7 Baso % (Auto) 0.3 Gran # 9.93 H Lymph # 4.5 H Wolfe # 1.2 H Eos # 0.4 Baso # 0.05 APTT Protein C Antigen Sodium 136 Potassium 3.3 L Chloride 100 Carbon Dioxide 28 Anion Gap 11 BUN 12 Creatinine 0.7 Est GFR ( Amer) > 60 Est GFR (Non-Af Amer) > 60 POC Glucose (mg/dL) 184 H Random Glucose 152 H Calcium 8.0 L Total Bilirubin 1.0 AST 32 ALT 36 Alkaline Phosphatase 107 Total Protein 6.3 Albumin 2.9 L Globulin 3.3 Albumin/Globulin Ratio 0.9 L ANCA Screen c-ANCA Titer p-ANCA Titer Atypical p-ANCA Titer Phosphatidylserine IgG Phosphatidylserine IgA Phosphatidylserine IgM Anti-Phospholipid Intrp Anti-Cardiolipin IgG Ab Anti-Cardiolipin IgA Ab Anti-Cardiolipin IgM Ab 03/18/17 03/18/17 03/18/17 09:13 11:21 15:50 WBC RBC Hgb Hct MCV MCH MCHC RDW Plt Count MPV Gran % Lymph % (Auto) Wolfe % (Auto) Eos % (Auto) Baso % (Auto) Gran # Lymph # Wolfe # Eos # Baso # APTT 54.5 H Protein C Antigen Sodium Potassium Chloride Carbon Dioxide Anion Gap BUN Creatinine Est GFR ( Amer) Est GFR (Non-Af Amer) POC Glucose (mg/dL) 310 H 176 H Random Glucose Calcium Total Bilirubin AST ALT Alkaline Phosphatase Total Protein Albumin Globulin Albumin/Globulin Ratio ANCA Screen c-ANCA Titer p-ANCA Titer Atypical p-ANCA Titer Phosphatidylserine IgG Phosphatidylserine IgA Phosphatidylserine IgM Anti-Phospholipid Intrp Anti-Cardiolipin IgG Ab Anti-Cardiolipin IgA Ab Anti-Cardiolipin IgM Ab Assessment & Plan (1) Protein C deficiency Assessment and Plan: protein C+ S deficiency while on coumadin; these results may be inaccurate given testing done while on coumadin pt also on heparin; would not check antithrombin III level at this point antiphospholipid Ab panel negative with check Factor V Leiden and prothrombin gene mutation Status: Acute (2) Mural thrombus of cardiac apex Assessment and Plan: likely related to cardiomyopathy with low EF as opposed to inherited thrombophilia therapeutic anticoagulation Status: Acute Priority: High (3) Coagulopathy Assessment and Plan: secondary to anticoagulation Status: Acute (4) Anemia Assessment and Plan: will check ferritin, retic count, b12, folate, FOBT to further characterize. Status: Acute (5) Leukocytosis Assessment and Plan: on antibiotics Thank you for this interesting consult. Status: Acute
[2017-03-19 04:07] LABS: ANCA SCREEN NEGATIVE (NEGATIVE)
[2017-03-19] MEDS: Meropenem 1g/NS 100mL IVPB 1 GM/100 ML PIGGYBACK IVPB SCH ×3 (06:03→22:00)
[2017-03-19] MEDS: Milrinone 20mg/100ml D5W 100 ML IV PRN ×2 (06:04→17:32)
[2017-03-19] MEDS: Pantoprazole 40 mg EC Tab PO SCH ×2 (06:08→17:24)
[2017-03-19 06:19] LABS: BASO # 0.04 K/mm3 (0.0-2.0); BASO % 0.3 % (0.0-3.0); EOS # 0.3 (0.0-0.7); EOS % 1.9 % (1.5-5.0); GRAN # 10.65 (1.4-6.5); GRAN % 66.8 % (50.0-68.0); HEMOGLOBIN 9.3 gm/dL (12.0-16.0); LYMPH # 3.7 (1.2-3.4); LYMPH % 23.3 % (22.0-35.0); MEAN CELL VOLUME 76.2 fL (80.0-105.0); MEAN CORPUSCULAR HEMOGLOBIN 24.3 pg (25.0-35.0); MEAN PLATELET VOLUME 8.5 fl (7.0-11.0); MONO # 1.2 (0.1-0.6); MONO % 7.7 % (1.0-6.0); PLATELET COUNT 498 10^3/uL (120.0-450.0); RBC 3.82 10^6/uL (3.5-6.1); RED CELL DISTRIBUTION WIDTH 17.1 % (11.5-14.5)
[2017-03-19 06:39] LABS: ALB/GLOB RATIO 0.8 (1.1-1.8); ALBUMIN 2.8 g/dL (3.0-4.8); ALT/SGPT 33 U/L (7-56); AST/SGOT 41 U/L (15-39); BLOOD UREA NITROGEN 9 mg/dL (7-21); CALCIUM 8.4 mg/dL (8.4-10.5); GFR AFRICAN-AMERICAN > 60; GFR NON-AFRICAN AMERICAN > 60
[2017-03-19] MEDS ORDERED: Potassium Chloride 40 mEq/30 ml LIQ UD PO ONE (07:42)
[2017-03-19] MEDS: Insulin Lispro (HUMAlog) HIGH Coverage SC SCH ×4 (08:22→22:21)
--- NOTE | 2017-03-19 09:02 | CP.PCM.PN ---
Subjective - Date & Time of Evaluation Date of Evaluation: 03/19/17 Time of Evaluation: 08:59 - Subjective Subjective: Gen Sx: Dr Alicea Pt S&E. TORIE. Pain well controlled but still sore at CT site. Denies SOB or chest pain. CT to suction. No air leak noted. Dressing changed at bedside. 350cc/24hrs sanguinous Objective - Vital Signs/Intake and Output Vital Signs (last 24 hours): Temp Pulse Resp BP Pulse Ox 99.2 F 106 H 28 H 113/54 L 99 03/19/17 04:00 03/19/17 07:45 03/19/17 07:45 03/19/17 08:23 03/19/17 07:45 Intake and Output: 03/19/17 03/19/17 06:59 18:59 Intake Total 1030 Output Total 900 Balance 130 - Medications Medications: Current Medications Acetaminophen (Tylenol 325mg Tab) 650 mg PO Q4H PRN PRN Reason: Fever >100.4 F Last Admin: 03/17/17 06:40 Dose: 650 mg Albuterol/Ipratropium (Duoneb 3 Mg/0.5 Mg (3 Ml) Ud) 3 ml IH Q2H PRN PRN Reason: Shortness of Breath Carvedilol (Coreg) 3.125 mg PO BID [facility] Last Admin: 03/18/17 17:38 Dose: 3.125 mg Digoxin (Lanoxin) 0.25 mg PO 1400 [facility] Last Admin: 03/18/17 14:04 Dose: 0.25 mg Furosemide (Lasix) 40 mg IV 0800,1400 [facility] Last Admin: 03/19/17 08:23 Dose: 40 mg Vancomycin HCl (Vancomycin 1gm) 1 gm in 250 mls @ 167 mls/hr IVPB Q12 [facility] PRN Reason: Protocol Last Admin: 03/18/17 22:31 Dose: 167 mls/hr Milrinone Lactate/Dextrose (Primacor 20mg/100ml D5w) 100 mls @ 7.103 mls/hr IV .Q14H5M PRN; Protocol; 0.2 MCG/KG/MIN PRN Reason: TITRATE PER MD ORDER Last Admin: 03/19/17 06:04 Dose: 0.2 mcg/kg/min, 7.103 mls/hr Doxycycline Hyclate 100 mg/ (Sodium Chloride) 100 mls @ 100 mls/hr IVPB Q12 [facility] PRN Reason: Protocol Last Admin: 03/18/17 22:00 Dose: 100 mls/hr Meropenem 1g/NS 100mL IVPB (Meropenem 1g/Ns 100ml Ivpb) 1 gm in 100 mls @ 100 mls/hr IVPB Q8 [facility] PRN Reason: Protocol Stop: 03/24/17 06:01 Last Admin: 03/19/17 06:03 Dose: 100 mls/hr Heparin Sodium/Dextrose (Heparin 25,000 Units/250ml In D5w) 25,000 units in 250 mls @ 10.124 mls/hr IV .Q24H PRN; Protocol; 9 UNITS/KG/HR PRN Reason: ADJUST RATE PER PROTOCOL Last Admin: 03/18/17 14:35 Dose: 9 units/kg/hr, 10.124 mls/hr Insulin Detemir (Levemir) 10 unit SC HS [facility] Last Admin: 03/18/17 22:29 Dose: 10 unit Insulin Human Lispro (Humalog High) 0 units SC ACHS [facility] PRN Reason: Protocol Last Admin: 03/19/17 08:22 Dose: 4 units Lisinopril (Zestril) 2.5 mg PO DAILY [facility] Last Admin: 03/18/17 09:12 Dose: 2.5 mg Morphine Sulfate (Morphine) 4 mg IVP Q4H PRN PRN Reason: Pain, moderate (4-7) Last Admin: 03/18/17 16:45 Dose: 4 mg Ondansetron HCl (Zofran Inj) 4 mg IVP Q6H PRN PRN Reason: Nausea/Vomiting Pantoprazole Sodium (Protonix Ec Tab) 40 mg PO 0600,1630 [facility] Last Admin: 03/19/17 06:08 Dose: 40 mg Spironolactone (Aldactone) 25 mg PO BID [facility] Last Admin: 03/18/17 17:38 Dose: 25 mg Verapamil HCl (Calan Tab) 40 mg PO TID [facility] Last Admin: 03/18/17 17:38 Dose: 40 mg - Labs Labs: 03/19/17 05:30 03/19/17 05:30 PT 28.6 Seconds (9.9-11.8) H 03/17/17 10:40 INR 2.65 (0.93-1.08) H 03/17/17 10:40 APTT 78.8 Seconds (23.7-30.8) H* 03/19/17 05:30 - Constitutional Appears: Non-toxic, No Acute Distress - Head Exam Head Exam: NORMOCEPHALIC - Respiratory Exam Respiratory Exam: absent: Accessory Muscle Use, Respiratory Distress - Cardiovascular Exam Cardiovascular Exam: REGULAR RHYTHM. absent: Tachycardia Additional comments: CT dressing changed at bedside - Neurological Exam Neurological Exam: Alert, Awake, Oriented x3 - Psychiatric Exam Psychiatric exam: Normal Affect, Normal Mood - Skin Skin Exam: Normal Color, Warm Assessment and Plan - Assessment and Plan (Free Text) Assessment: 46F POD#4 s/p right thoracostomy tube insertion Plan: Cont CT to suction will switch to waterseal tonight CXR in AM possible removal tomorrow will d/w Dr Nixon Franco PGY3
[2017-03-19] MEDS ORDERED: Potassium Chloride 20 mEq ER Tab PO ONE (09:04)
[2017-03-19] MEDS: Morphine 4 mg/ml ISec IVP PRN ×2 (09:30→21:45)
[2017-03-19] MEDS: Vancomycin 1gm in NS 250ml 1 GM/250 ML BAG IVPB SCH ×2 (09:33→22:00)
--- NOTE | 2017-03-19 10:57 | CP.PCM.PN ---
Subjective - Date & Time of Evaluation Date of Evaluation: 03/19/17 Time of Evaluation: 10:00 - Subjective Subjective: Still some soreness at the chest tube site but feels better in general, no SOB at rest, cough improving, no fevers overnight. Objective - Vital Signs/Intake and Output Vital Signs (last 24 hours): Temp Pulse Resp BP Pulse Ox 99.2 F 105 H 53 H 164/96 H 93 L 03/19/17 04:00 03/19/17 06:30 03/19/17 06:30 03/19/17 05:00 03/19/17 06:30 Intake and Output: 03/19/17 03/19/17 06:59 18:59 Intake Total 1030 Output Total 900 Balance 130 - Medications Medications: Current Medications Acetaminophen (Tylenol 325mg Tab) 650 mg PO Q4H PRN PRN Reason: Fever >100.4 F Last Admin: 03/17/17 06:40 Dose: 650 mg Albuterol/Ipratropium (Duoneb 3 Mg/0.5 Mg (3 Ml) Ud) 3 ml IH Q2H PRN PRN Reason: Shortness of Breath Carvedilol (Coreg) 3.125 mg PO BID [facility] Last Admin: 03/18/17 17:38 Dose: 3.125 mg Digoxin (Lanoxin) 0.25 mg PO 1400 [facility] Last Admin: 03/18/17 14:04 Dose: 0.25 mg Furosemide (Lasix) 40 mg IV 0800,1400 [facility] Last Admin: 03/18/17 14:03 Dose: 40 mg Vancomycin HCl (Vancomycin 1gm) 1 gm in 250 mls @ 167 mls/hr IVPB Q12 [facility] PRN Reason: Protocol Last Admin: 03/18/17 22:31 Dose: 167 mls/hr Milrinone Lactate/Dextrose (Primacor 20mg/100ml D5w) 100 mls @ 7.103 mls/hr IV .Q14H5M PRN; Protocol; 0.2 MCG/KG/MIN PRN Reason: TITRATE PER MD ORDER Last Admin: 03/19/17 06:04 Dose: 0.2 mcg/kg/min, 7.103 mls/hr Doxycycline Hyclate 100 mg/ (Sodium Chloride) 100 mls @ 100 mls/hr IVPB Q12 [facility] PRN Reason: Protocol Last Admin: 03/18/17 22:00 Dose: 100 mls/hr Meropenem 1g/NS 100mL IVPB (Meropenem 1g/Ns 100ml Ivpb) 1 gm in 100 mls @ 100 mls/hr IVPB Q8 [facility] PRN Reason: Protocol Stop: 03/24/17 06:01 Last Admin: 03/19/17 06:03 Dose: 100 mls/hr Heparin Sodium/Dextrose (Heparin 25,000 Units/250ml In D5w) 25,000 units in 250 mls @ 10.124 mls/hr IV .Q24H PRN; Protocol; 9 UNITS/KG/HR PRN Reason: ADJUST RATE PER PROTOCOL Last Admin: 03/18/17 14:35 Dose: 9 units/kg/hr, 10.124 mls/hr Insulin Detemir (Levemir) 10 unit SC HS [facility] Last Admin: 03/18/17 22:29 Dose: 10 unit Insulin Human Lispro (Humalog High) 0 units SC ACHS [facility] PRN Reason: Protocol Last Admin: 03/18/17 22:28 Dose: Not Given Lisinopril (Zestril) 2.5 mg PO DAILY [facility] Last Admin: 03/18/17 09:12 Dose: 2.5 mg Morphine Sulfate (Morphine) 4 mg IVP Q4H PRN PRN Reason: Pain, moderate (4-7) Last Admin: 03/18/17 16:45 Dose: 4 mg Ondansetron HCl (Zofran Inj) 4 mg IVP Q6H PRN PRN Reason: Nausea/Vomiting Pantoprazole Sodium (Protonix Ec Tab) 40 mg PO 0600,1630 [facility] Last Admin: 03/19/17 06:08 Dose: 40 mg Spironolactone (Aldactone) 25 mg PO BID [facility] Last Admin: 03/18/17 17:38 Dose: 25 mg Verapamil HCl (Calan Tab) 40 mg PO TID [facility] Last Admin: 03/18/17 17:38 Dose: 40 mg - Labs Labs: 03/19/17 05:30 03/19/17 05:30 PT 28.6 Seconds (9.9-11.8) H 03/17/17 10:40 INR 2.65 (0.93-1.08) H 03/17/17 10:40 APTT 78.8 Seconds (23.7-30.8) H* 03/19/17 05:30 - Constitutional Appears: Non-toxic, No Acute Distress - Head Exam Head Exam: NORMAL INSPECTION - Respiratory Exam Respiratory Exam: Decreased Breath Sounds - Cardiovascular Exam Cardiovascular Exam: +S1, +S2 - GI/Abdominal Exam GI & Abdominal Exam: Soft. absent: Tenderness Assessment and Plan - Assessment and Plan (Free Text) Plan: Assessment Systemic Inflammatory Response Syndrome, consider due to right sided pleural effusion, etiology to be determined, consider right sided healthcare-associated pneumonia S/P chest tube placement POD #4 systemic lupus erythematosus morbid obesity with BMI 41 DM asthma history of migraine headaches history of spinal stenosis history of ectopic Plan continue Doxycycline, Vancomycin (day 5) and Merrem; repeat blood cx are negative (1st blood cx are negative as well), pleural fluid cultures are also negative; PCT is only 0.18; reviewed repeat CT chest - will target up to 7 days of antibiotics will continue to monitor clinically
--- NOTE | 2017-03-19 11:35 | CP.PCM.PN ---
<Anatoly Bryant - Last Filed: 03/19/17 11:36> Subjective - Date & Time of Evaluation Date of Evaluation: 03/19/17 Time of Evaluation: 09:00 - Subjective Subjective: Patient seen and examined. She is resting comfortably in bed. States SOB is improved from yesterday. Patient denies overnight issues. Does not offer any new complaints at this time. Admits to mild discomfort near chest tube incision site. Denies fever, chills, chest pain, SOB, N/V. Objective - Vital Signs/Intake and Output Vital Signs (last 24 hours): Temp Pulse Resp BP Pulse Ox 99.2 F 110 H 28 H 146/95 H 99 03/19/17 04:00 03/19/17 09:34 03/19/17 07:45 03/19/17 09:34 03/19/17 07:45 Intake and Output: 03/19/17 03/19/17 06:59 18:59 Intake Total 1030 Output Total 900 Balance 130 - Medications Medications: Current Medications Acetaminophen (Tylenol 325mg Tab) 650 mg PO Q4H PRN PRN Reason: Fever >100.4 F Last Admin: 03/17/17 06:40 Dose: 650 mg Albuterol/Ipratropium (Duoneb 3 Mg/0.5 Mg (3 Ml) Ud) 3 ml IH Q2H PRN PRN Reason: Shortness of Breath Carvedilol (Coreg) 3.125 mg PO BID [facility] Last Admin: 03/19/17 09:33 Dose: 3.125 mg Digoxin (Lanoxin) 0.25 mg PO 1400 [facility] Last Admin: 03/18/17 14:04 Dose: 0.25 mg Furosemide (Lasix) 40 mg IV 0800,1400 [facility] Last Admin: 03/19/17 08:23 Dose: 40 mg Vancomycin HCl (Vancomycin 1gm) 1 gm in 250 mls @ 167 mls/hr IVPB Q12 [facility] PRN Reason: Protocol Last Admin: 03/19/17 09:33 Dose: 167 mls/hr Milrinone Lactate/Dextrose (Primacor 20mg/100ml D5w) 100 mls @ 7.103 mls/hr IV .Q14H5M PRN; Protocol; 0.2 MCG/KG/MIN PRN Reason: TITRATE PER MD ORDER Last Admin: 03/19/17 06:04 Dose: 0.2 mcg/kg/min, 7.103 mls/hr Doxycycline Hyclate 100 mg/ (Sodium Chloride) 100 mls @ 100 mls/hr IVPB Q12 [facility] PRN Reason: Protocol Last Admin: 03/18/17 22:00 Dose: 100 mls/hr Meropenem 1g/NS 100mL IVPB (Meropenem 1g/Ns 100ml Ivpb) 1 gm in 100 mls @ 100 mls/hr IVPB Q8 [facility] PRN Reason: Protocol Stop: 03/24/17 06:01 Last Admin: 03/19/17 06:03 Dose: 100 mls/hr Heparin Sodium/Dextrose (Heparin 25,000 Units/250ml In D5w) 25,000 units in 250 mls @ 10.124 mls/hr IV .Q24H PRN; Protocol; 9 UNITS/KG/HR PRN Reason: ADJUST RATE PER PROTOCOL Last Admin: 03/18/17 14:35 Dose: 9 units/kg/hr, 10.124 mls/hr Insulin Detemir (Levemir) 10 unit SC HS [facility] Last Admin: 03/18/17 22:29 Dose: 10 unit Insulin Human Lispro (Humalog High) 0 units SC ACHS [facility] PRN Reason: Protocol Last Admin: 03/19/17 08:22 Dose: 4 units Lisinopril (Zestril) 2.5 mg PO DAILY [facility] Last Admin: 03/19/17 09:34 Dose: 2.5 mg Morphine Sulfate (Morphine) 4 mg IVP Q4H PRN PRN Reason: Pain, moderate (4-7) Last Admin: 03/19/17 09:30 Dose: 4 mg Ondansetron HCl (Zofran Inj) 4 mg IVP Q6H PRN PRN Reason: Nausea/Vomiting Pantoprazole Sodium (Protonix Ec Tab) 40 mg PO 0600,1630 [facility] Last Admin: 03/19/17 06:08 Dose: 40 mg Spironolactone (Aldactone) 25 mg PO BID [facility] Last Admin: 03/19/17 09:33 Dose: 25 mg Verapamil HCl (Calan Tab) 40 mg PO TID [facility] Last Admin: 03/19/17 09:32 Dose: 40 mg - Labs Labs: 03/19/17 05:30 03/19/17 05:30 PT 28.6 Seconds (9.9-11.8) H 03/17/17 10:40 INR 2.65 (0.93-1.08) H 03/17/17 10:40 APTT 78.8 Seconds (23.7-30.8) H* 03/19/17 05:30 - Additional Findings Additional findings: - Constitutional Appears: No Acute Distress - Head Exam Head Exam: ATRAUMATIC, NORMAL INSPECTION, NORMOCEPHALIC - Eye Exam Eye Exam: EOMI, Normal appearance, PERRL Pupil Exam: NORMAL ACCOMODATION, PERRL - ENT Exam ENT Exam: Mucous Membranes Moist, Normal Exam - Neck Exam Neck Exam: Full ROM, Normal Inspection. absent: Lymphadenopathy - Respiratory Exam Respiratory Exam: Clear to Ausculation Bilateral, NORMAL BREATHING PATTERN. absent: Wheezes - Cardiovascular Exam Cardiovascular Exam: REGULAR RHYTHM, RRR, +S1, +S2. absent: Murmur - GI/Abdominal Exam GI & Abdominal Exam: Soft, Normal Bowel Sounds. absent: Distended, Tenderness - Extremities Exam Extremities Exam: Full ROM, Normal Capillary Refill, Normal Inspection. absent : Calf Tenderness, Joint Swelling, Pedal Edema - Neurological Exam Neurological Exam: Alert, Awake, CN II-XII Intact, Normal Gait, Oriented x3, responds to verbal stimuli and follows commands - Psychiatric Exam Psychiatric exam: Normal Affect, Normal Mood - Skin Skin Exam: chest wall incision site clean, tube in proper position Assessment and Plan - Assessment and Plan (Free Text) Assessment: Patient is a 46 yo with severe dilated cardiomyopathy with severe LV systolic dysfunction admitted to the ICU for evaluation and treatment of acute respiratory distress, anemia, and a supratherapeutic INR Plan: 1. acute respiratory distress 2/2 Empyema vs. Hemothorax vs pna - CT chest: significant dec in size of pleural effusion , reexpansion of RU lung , partial expansion of R middle and RL lung. - right chest tube placement, monitor output, surgery is following -F/u pleural fluid cultures, blood cx x 2 negative -ID consult - merro , vancomycin and doxy -Cont. Duoneb prn 2. Dilated cardiomyopathy with severe LV systolic dysfunction -MUGA scan: mod LV dysfunction w difusse hypokinessi LVEF 37% -Heparin ggt - pmh of LV thrombus -Echo revealed no LV thrombus, EF 15% with dilated and severe systolic dys -Consulted cardiology - rec anticoagulation after dc chest tube and possible EP evaluation, Cont Milrinone, Lisinopril, Carvedilol, digoxin, verapamil, Aldactone -Monitor INR 3. Hypokalemia - K of 3.4, minimally improved from yesterday - repleted with KCl - cont to monitor via BMP 4. Left leg pain -Extremity US negative for DVT -Morphine 4q4 prn 5. Insulin dependent diabetes mellitus -Levemir 10 units -Humalog ISS as protocol 6. GI/DVT PPx -Protonix -Lovenox 7. Protein C Deficiency - HemeOnc on board -these results may be inaccurate given testing done while on coumadin - check Factor V Leiden and prothrombin gene mutation Patient and plan was seen and discussed in detail with Dr. Martins. <Rob Martins - Last Filed: 03/19/17 12:17> Objective - Vital Signs/Intake and Output Vital Signs (last 24 hours): Temp Pulse Resp BP Pulse Ox 99.2 F 110 H 28 H 146/95 H 99 03/19/17 04:00 03/19/17 09:34 03/19/17 07:45 03/19/17 09:34 03/19/17 07:45 Intake and Output: 03/19/17 03/19/17 06:59 18:59 Intake Total 1030 250 Output Total 900 Balance 130 250 - Medications Medications: Current Medications Acetaminophen (Tylenol 325mg Tab) 650 mg PO Q4H PRN PRN Reason: Fever >100.4 F Last Admin: 03/17/17 06:40 Dose: 650 mg Albuterol/Ipratropium (Duoneb 3 Mg/0.5 Mg (3 Ml) Ud) 3 ml IH Q2H PRN PRN Reason: Shortness of Breath Carvedilol (Coreg) 3.125 mg PO BID [facility] Last Admin: 03/19/17 09:33 Dose: 3.125 mg Digoxin (Lanoxin) 0.25 mg PO 1400 [facility] Last Admin: 03/18/17 14:04 Dose: 0.25 mg Furosemide (Lasix) 40 mg IV 0800,1400 [facility] Last Admin: 03/19/17 08:23 Dose: 40 mg Vancomycin HCl (Vancomycin 1gm) 1 gm in 250 mls @ 167 mls/hr IVPB Q12 [facility] PRN Reason: Protocol Last Admin: 03/19/17 09:33 Dose: 167 mls/hr Milrinone Lactate/Dextrose (Primacor 20mg/100ml D5w) 100 mls @ 7.103 mls/hr IV .Q14H5M PRN; Protocol; 0.2 MCG/KG/MIN PRN Reason: TITRATE PER MD ORDER Last Admin: 03/19/17 06:04 Dose: 0.2 mcg/kg/min, 7.103 mls/hr Doxycycline Hyclate 100 mg/ (Sodium Chloride) 100 mls @ 100 mls/hr IVPB Q12 [facility] PRN Reason: Protocol Last Admin: 03/19/17 11:00 Dose: 100 mls/hr Meropenem 1g/NS 100mL IVPB (Meropenem 1g/Ns 100ml Ivpb) 1 gm in 100 mls @ 100 mls/hr IVPB Q8 [facility] PRN Reason: Protocol Stop: 03/24/17 06:01 Last Admin: 03/19/17 06:03 Dose: 100 mls/hr Heparin Sodium/Dextrose (Heparin 25,000 Units/250ml In D5w) 25,000 units in 250 mls @ 10.124 mls/hr IV .Q24H PRN; Protocol; 9 UNITS/KG/HR PRN Reason: ADJUST RATE PER PROTOCOL Last Admin: 03/19/17 11:54 Dose: 9 units/kg/hr, 10.124 mls/hr Insulin Detemir (Levemir) 10 unit SC [facility] Last Admin: 03/18/17 22:29 Dose: 10 unit Insulin Human Lispro (Humalog High) 0 [facility] PRN Reason: Protocol Last Admin: 03/19/17 11:51 Dose: 7 units Lisinopril (Zestril) 2.5 mg PO DAILY [facility] Last Admin: 03/19/17 09:34 Dose: 2.5 mg Morphine Sulfate (Morphine) 4 mg IVP Q4H PRN PRN Reason: Pain, moderate (4-7) Last Admin: 03/19/17 09:30 Dose: 4 mg Ondansetron HCl (Zofran Inj) 4 mg IVP Q6H PRN PRN Reason: Nausea/Vomiting Pantoprazole Sodium (Protonix Ec Tab) 40 mg PO 0600,1630 [facility] Last Admin: 03/19/17 06:08 Dose: 40 mg Potassium Chloride (K-Dur 20 Meq Er Tab) 20 meq PO BRK [facility] Spironolactone (Aldactone) 25 mg PO BID [facility] Last Admin: 03/19/17 09:33 Dose: 25 mg Verapamil HCl (Calan Tab) 40 mg PO TID [facility] Last Admin: 03/19/17 09:32 Dose: 40 mg - Labs Labs: 03/19/17 05:30 03/19/17 05:30 PT 28.6 Seconds (9.9-11.8) H 03/17/17 10:40 INR 2.65 (0.93-1.08) H 03/17/17 10:40 APTT 78.8 Seconds (23.7-30.8) H* 03/19/17 05:30 Attending/Attestation - Attestation I have personally seen and examined this patient.: Yes I have fully participated in the care of the patient.: Yes I have reviewed all pertinent clinical information, including history, physical exam and plan: Yes Notes (Text): 03/19/17 12:13 46 year old female with past medical history of cardiac thrombus, dilated cardiomyopathy and diabetes who presented with sepsis and respiratory distress. She was found to have large right pleural effusion and supratherapeutic INR. She is s/p chest tube. 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 Plan is to possibly remove chest tube tomorrow as per surgery. She is on iv antibiotics as per ID. Repeat echocardiogram was reviewed; no cardiac thrombus was seen. MUGA scan was also reviewed. She was started on heparin drip for anticoagulation. Hematology evaluation was appreciated. Cardiology is also following . Patient is on primacor, lasix, coreg, digoxin, lisinopril, and spironalactone. She is on levemir and insulin ss for diabetes. Will replete and repeat potassium. Rob Martins MD Hospitalist.
--- NOTE | 2017-03-19 11:39 | CP.CCUPN ---
CCU Subjective - Physician Review Events Since Last Encounter (Free Text): 03/19/17 11:34 No acute events overnight HGB stable on heparin drip. SOB improved after CT placement. On room air. CT to be placed on water seal . Minimal drainage 300cc in 24 hrs CCU Objective - Vital Signs / Intake & Output Vital Signs (Last 4 hours): Vital Signs Pulse Resp BP Pulse Ox 03/19/17 09:34 110 H 146/95 H 03/19/17 09:33 110 H 146/95 H 03/19/17 09:32 110 H 146/95 H 03/19/17 08:23 113/54 L 03/19/17 07:45 106 H 28 H 99 Intake and Output (Last 8hrs): Intake & Output 03/18/17 03/19/17 03/19/17 22:59 06:59 14:59 Intake Total 1804 1030 Output Total 1851 900 Balance -47 130 Weight 252 lb Intake: IV 754 850 Antibiotics 450 Milrinone drip 84 200 left ac 120 550 Oral 1050 180 Output: Chest Tube Drainage 200 100 Right Anterior Chest 200 100 Urine 1650 800 Urine, Voided 1650 800 Stool 1 Other: Voiding Method Bedpan Bedpan # Voids Urine, Voided 6 # Bowel Movements 1 0 - Physical Exam Head: Positive for: Atraumatic, Normocephalic Pupils: Positive for: PERRL Conjunctiva: Positive for: Normal Mouth: Positive for: Moist Mucous Membranes Pharnyx: Positive for: Normal. Negative for: ERYTHEMA, EXUDATE Nose (Internal): Positive for: Normal Inspection Neck: Positive for: Normal Range of Motion. Negative for: JVD Respiratory/Chest: Positive for: Decreased Breath Sounds (R side), Other ( Tubular breath sounds right lung base . R CT in place ). Negative for: Respiratory Distress, Accessory Muscle Use Cardiovascular: Positive for: Normal S1, S2, Tachycardic. Negative for: Murmurs Abdomen: Positive for: Normal Bowel Sounds. Negative for: Tenderness, Distention, Peritoneal Signs, Rebound, Guarding Upper Extremity: Positive for: Normal Inspection. Negative for: Cyanosis, Edema Lower Extremity: Positive for: Normal Inspection, NORMAL PULSES, Neurovascularly Intact, Capillary Refill < 2 s. Negative for: Edema, CALF TENDERNESS, Tenderness, Swelling, Erythema Neurological: Positive for: GCS=15, CN II-XII Intact, Speech Normal, Motor Func Grossly Intact, Normal Sensory Function Skin: Positive for: Warm, Dry, Normal Color. Negative for: Rashes Psychiatric: Positive for: Alert, Oriented x 3, Normal Insight, Normal Concentration - Medications Active Medications: Active Medications Generic Name Dose Route Start Last Admin Trade Name Freq PRN Reason Stop Dose Admin Acetaminophen 650 mg 03/14/17 22:50 03/17/17 06:40 Tylenol 325mg Tab PO 650 mg Q4H PRN Administration Fever >100.4 F Albuterol/Ipratropium 3 ml 03/14/17 23:18 Duoneb 3 Mg/0.5 Mg (3 Ml) Ud IH Q2H PRN Shortness of Breath Carvedilol 3.125 mg 03/16/17 10:00 03/19/17 09:33 Coreg PO 3.125 mg BID [facility] Administration Digoxin 0.25 mg 03/16/17 14:00 03/18/17 14:04 Lanoxin PO 0.25 mg 1400 [facility] Administration Furosemide 40 mg 03/16/17 14:00 03/19/17 08:23 Lasix IV 40 mg 0800,1400 [facility] Administration Vancomycin HCl 1 gm in 250 mls @ 167 mls/hr 03/15/17 10:00 03/19/17 09:33 Vancomycin 1gm IVPB 167 mls/hr Q12 [facility] Administration Protocol Milrinone Lactate/Dextrose 100 mls @ 7.103 mls/hr 03/15/17 18:21 03/19/17 06: 04 Primacor 20mg/100ml D5w IV 0.2 mcg/kg/min .Q14H5M PRN 7.103 mls/hr TITRATE PER MD ORDER Administration Protocol 0.2 MCG/KG/MIN Doxycycline Hyclate 100 mg/ 100 mls @ 100 mls/hr 03/16/17 22:00 03/18/17 22: 00 Sodium Chloride IVPB 100 mls/hr Q12 [facility] Administration Protocol Meropenem 1g/NS 100mL IVPB 1 gm in 100 mls @ 100 mls/hr 03/17/17 06:00 06:03 Meropenem 1g/Ns 100ml Ivpb IVPB 03/24/17 06:01 100 mls/hr Q8 [facility] Administration Protocol Heparin Sodium/Dextrose 25,000 units in 250 mls @ 10.124 mls/hr 03/17/17 16: 30 03/18/17 14:35 Heparin 25,000 Units/250ml In D5w IV 9 units/kg/hr .Q24H PRN 10.124 mls/hr ADJUST RATE PER PROTOCOL Administration Protocol 9 UNITS/KG/HR Insulin Detemir 10 unit 03/16/17 21:22 03/18/17 22:29 Levemir SC 10 unit HS [facility] Administration Insulin Human Lispro 0 units 03/15/17 16:30 03/19/17 08:22 Humalog High SC 4 units ACHS [facility] Administration Protocol Lisinopril 2.5 mg 03/16/17 10:00 03/19/17 09:34 Zestril PO 2.5 mg DAILY [facility] Administration Morphine Sulfate 4 mg 03/15/17 17:01 03/19/17 09:30 Morphine IVP 4 mg Q4H PRN Administration Pain, moderate (4-7) Ondansetron HCl 4 mg 03/14/17 22:50 Zofran Inj IVP Q6H PRN Nausea/Vomiting Pantoprazole Sodium 40 mg 03/19/17 06:00 03/19/17 06:08 Protonix Ec Tab PO 40 mg 0600,1630 [facility] Administration Spironolactone 25 mg 03/16/17 10:00 03/19/17 09:33 Aldactone PO 25 mg BID [facility] Administration Verapamil HCl 40 mg 03/16/17 10:00 03/19/17 09:32 Calan Tab PO 40 mg TID [facility] Administration - Patient Studies Lab Studies: Microbiology Studies 03/17/17 07:00 Blood Culture - Preliminary Blood-Venous NO GROWTH AFTER 48 HOURS 03/17/17 06:50 Blood Culture - Preliminary Blood-Venous NO GROWTH AFTER 48 HOURS 03/15/17 16:39 Gram Stain - Final Pleural Fluid Anaerobic Culture - Final NO ANAEROBES ISOLATED. Body Fluid Culture - Preliminary NO GROWTH AFTER 3 DAYS Fungal Culture - Preliminary Lab Studies 03/19/17 03/19/17 03/19/17 Range/Units 08:12 05:30 05:30 WBC (4.5-11.0) 10^3/ul RBC (3.5-6.1) 10^6/uL Hgb (12.0-16.0) gm/dL Hct (36.0-48.0) % MCV (80.0-105.0) fL MCH (25.0-35.0) pg MCHC (31.0-37.0) g/dl RDW (11.5-14.5) % Plt Count (120.0-450.0) 10^3/uL MPV (7.0-11.0) fl Gran % (50.0-68.0) % Lymph % (Auto) (22.0-35.0) % [place] % (Auto) (1.0-6.0) % Eos % (Auto) (1.5-5.0) % Baso % (Auto) (0.0-3.0) % Gran # (1.4-6.5) Lymph # (1.2-3.4) [place] # (0.1-0.6) Eos # (0.0-0.7) Baso # (0.0-2.0) K/mm3 Retic Count 4.21 H (0.5-1.5) % APTT 78.8 H* (23.7-30.8) Seconds Protein C Antigen (70-140) % Sodium (132-148) mmol/L Potassium (3.6-5.0) mmol/L Chloride (98-107) mmol/L Carbon Dioxide (21-33) mmol/L Anion Gap (10-20) BUN (7-21) mg/dL Creatinine (0.5-1.4) mg/dL Est GFR ( Amer) Est GFR (Non-Af Amer) POC Glucose (mg/dL) 201 H (65-110) mg/dL Random Glucose (70-110) mg/dL Calcium (8.4-10.5) mg/dL Ferritin ng/mL Total Bilirubin (0.2-1.3) mg/dL AST (15-39) U/L ALT (7-56) U/L Alkaline Phosphatase (38-133) U/L Total Protein (5.8-8.3) g/dL Albumin (3.0-4.8) g/dL Globulin gm/dL Albumin/Globulin Ratio (1.1-1.8) Vitamin B12 (239-931) pg/mL ANCA Screen (NEGATIVE) c-ANCA Titer Proteinase 3 (PR3) (<1.0) AI p-ANCA Titer Atypical p-ANCA Titer Myeloperoxidase Ab (<1.0) AI 03/19/17 03/19/17 03/18/17 Range/Units 05:30 05:30 22:27 WBC 16.0 H (4.5-11.0) 10^3/ul RBC 3.82 (3.5-6.1) 10^6/uL Hgb 9.3 L (12.0-16.0) gm/dL Hct 29.1 L (36.0-48.0) % MCV 76.2 L (80.0-105.0) fL MCH 24.3 L (25.0-35.0) pg MCHC 32.0 (31.0-37.0) g/dl RDW 17.1 H (11.5-14.5) % Plt Count 498 H (120.0-450.0) 10^3/uL MPV 8.5 (7.0-11.0) fl Gran % 66.8 (50.0-68.0) % Lymph % (Auto) 23.3 (22.0-35.0) % [place] % (Auto) 7.7 H (1.0-6.0) % Eos % (Auto) 1.9 (1.5-5.0) % Baso % (Auto) 0.3 (0.0-3.0) % Gran # 10.65 H (1.4-6.5) Lymph # 3.7 H (1.2-3.4) [place] # 1.2 H (0.1-0.6) Eos # 0.3 (0.0-0.7) Baso # 0.04 (0.0-2.0) K/mm3 Retic Count (0.5-1.5) % APTT (23.7-30.8) Seconds Protein C Antigen (70-140) % Sodium 136 (132-148) mmol/L Potassium 3.4 L (3.6-5.0) mmol/L Chloride 99 (98-107) mmol/L Carbon Dioxide 29 (21-33) mmol/L Anion Gap 11 (10-20) BUN 9 (7-21) mg/dL Creatinine 0.6 (0.5-1.4) mg/dL Est GFR ( Amer) > 60 Est GFR (Non-Af Amer) > 60 POC Glucose (mg/dL) 222 H (65-110) mg/dL Random Glucose 179 H (70-110) mg/dL Calcium 8.4 (8.4-10.5) mg/dL Ferritin 119.0 ng/mL Total Bilirubin 1.0 (0.2-1.3) mg/dL AST 41 H (15-39) U/L ALT 33 (7-56) U/L Alkaline Phosphatase 108 (38-133) U/L Total Protein 6.3 (5.8-8.3) g/dL Albumin 2.8 L (3.0-4.8) g/dL Globulin 3.5 gm/dL Albumin/Globulin Ratio 0.8 L (1.1-1.8) Vitamin B12 608 (239-931) pg/mL ANCA Screen (NEGATIVE) c-ANCA Titer Proteinase 3 (PR3) (<1.0) AI p-ANCA Titer Atypical p-ANCA Titer Myeloperoxidase Ab (<1.0) AI 03/18/17 03/18/17 03/15/17 Range/Units 15:50 11:21 18:05 WBC (4.5-11.0) 10^3/ul RBC (3.5-6.1) 10^6/uL Hgb (12.0-16.0) gm/dL Hct (36.0-48.0) % MCV (80.0-105.0) fL MCH (25.0-35.0) pg MCHC (31.0-37.0) g/dl RDW (11.5-14.5) % Plt Count (120.0-450.0) 10^3/uL MPV (7.0-11.0) fl Gran % (50.0-68.0) % Lymph % (Auto) (22.0-35.0) % [place] % (Auto) (1.0-6.0) % Eos % (Auto) (1.5-5.0) % Baso % (Auto) (0.0-3.0) % Gran # (1.4-6.5) Lymph # (1.2-3.4) [place] # (0.1-0.6) Eos # (0.0-0.7) Baso # (0.0-2.0) K/mm3 Retic Count (0.5-1.5) % APTT (23.7-30.8) Seconds Protein C Antigen (70-140) % Sodium (132-148) mmol/L Potassium (3.6-5.0) mmol/L Chloride (98-107) mmol/L Carbon Dioxide (21-33) mmol/L Anion Gap (10-20) BUN (7-21) mg/dL Creatinine (0.5-1.4) mg/dL Est GFR ( Amer) Est GFR (Non-Af Amer) POC Glucose (mg/dL) 176 H 310 H (65-110) mg/dL Random Glucose (70-110) mg/dL Calcium (8.4-10.5) mg/dL Ferritin ng/mL Total Bilirubin (0.2-1.3) mg/dL AST (15-39) U/L ALT (7-56) U/L Alkaline Phosphatase (38-133) U/L Total Protein (5.8-8.3) g/dL Albumin (3.0-4.8) g/dL Globulin gm/dL Albumin/Globulin Ratio (1.1-1.8) Vitamin B12 (239-931) pg/mL ANCA Screen Negative (NEGATIVE) c-ANCA Titer TNP Proteinase 3 (PR3) <1.0 (<1.0) AI p-ANCA Titer TNP Atypical p-ANCA Titer TNP Myeloperoxidase Ab <1.0 (<1.0) AI 03/15/17 Range/Units 18:05 WBC (4.5-11.0) 10^3/ul RBC (3.5-6.1) 10^6/uL Hgb (12.0-16.0) gm/dL Hct (36.0-48.0) % MCV (80.0-105.0) fL MCH (25.0-35.0) pg MCHC (31.0-37.0) g/dl RDW (11.5-14.5) % Plt Count (120.0-450.0) 10^3/uL MPV (7.0-11.0) fl Gran % (50.0-68.0) % Lymph % (Auto) (22.0-35.0) % [place] % (Auto) (1.0-6.0) % Eos % (Auto) (1.5-5.0) % Baso % (Auto) (0.0-3.0) % Gran # (1.4-6.5) Lymph # (1.2-3.4) [place] # (0.1-0.6) Eos # (0.0-0.7) Baso # (0.0-2.0) K/mm3 Retic Count (0.5-1.5) % APTT (23.7-30.8) Seconds Protein C Antigen 73 (70-140) % Sodium (132-148) mmol/L Potassium (3.6-5.0) mmol/L Chloride (98-107) mmol/L Carbon Dioxide (21-33) mmol/L Anion Gap (10-20) BUN (7-21) mg/dL Creatinine (0.5-1.4) mg/dL Est GFR ( Amer) Est GFR (Non-Af Amer) POC Glucose (mg/dL) (65-110) mg/dL Random Glucose (70-110) mg/dL Calcium (8.4-10.5) mg/dL Ferritin ng/mL Total Bilirubin (0.2-1.3) mg/dL AST (15-39) U/L ALT (7-56) U/L Alkaline Phosphatase (38-133) U/L Total Protein (5.8-8.3) g/dL Albumin (3.0-4.8) g/dL Globulin gm/dL Albumin/Globulin Ratio (1.1-1.8) Vitamin B12 (239-931) pg/mL ANCA Screen (NEGATIVE) c-ANCA Titer Proteinase 3 (PR3) (<1.0) AI p-ANCA Titer Atypical p-ANCA Titer Myeloperoxidase Ab (<1.0) AI Laboratory Results - last 24 hr 03/15/17 03/15/17 03/18/17 18:05 18:05 11:21 WBC RBC Hgb Hct MCV MCH MCHC RDW Plt Count MPV Gran % Lymph % (Auto) [place] % (Auto) Eos % (Auto) Baso % (Auto) Gran # Lymph # [place] # Eos # Baso # Retic Count APTT Protein C Antigen 73 Sodium Potassium Chloride Carbon Dioxide Anion Gap BUN Creatinine Est GFR ( Amer) Est GFR (Non-Af Amer) POC Glucose (mg/dL) 310 H Random Glucose Calcium Ferritin Total Bilirubin AST ALT Alkaline Phosphatase Total Protein Albumin Globulin Albumin/Globulin Ratio Vitamin B12 ANCA Screen Negative c-ANCA Titer TNP Proteinase 3 (PR3) <1.0 p-ANCA Titer TNP Atypical p-ANCA Titer TNP Myeloperoxidase Ab <1.0 03/18/17 03/18/17 03/19/17 15:50 22:27 05:30 WBC 16.0 H RBC 3.82 Hgb 9.3 L Hct 29.1 L MCV 76.2 L MCH 24.3 L MCHC 32.0 RDW 17.1 H Plt Count 498 H MPV 8.5 Gran % 66.8 Lymph % (Auto) 23.3 [place] % (Auto) 7.7 H Eos % (Auto) 1.9 Baso % (Auto) 0.3 Gran # 10.65 H Lymph # 3.7 H [place] # 1.2 H Eos # 0.3 Baso # 0.04 Retic Count APTT Protein C Antigen Sodium Potassium Chloride Carbon Dioxide Anion Gap BUN Creatinine Est GFR ( Amer) Est GFR (Non-Af Amer) POC Glucose (mg/dL) 176 H 222 H Random Glucose Calcium Ferritin Total Bilirubin AST ALT Alkaline Phosphatase Total Protein Albumin Globulin Albumin/Globulin Ratio Vitamin B12 ANCA Screen c-ANCA Titer Proteinase 3 (PR3) p-ANCA Titer Atypical p-ANCA Titer Myeloperoxidase Ab 03/19/17 03/19/17 03/19/17 05:30 05:30 05:30 WBC RBC Hgb Hct MCV MCH MCHC RDW Plt Count MPV Gran % Lymph % (Auto) [place] % (Auto) Eos % (Auto) Baso % (Auto) Gran # Lymph # [place] # Eos # Baso # Retic Count 4.21 H APTT 78.8 H* Protein C Antigen Sodium 136 Potassium 3.4 L Chloride 99 Carbon Dioxide 29 Anion Gap 11 BUN 9 Creatinine 0.6 Est GFR ( Amer) > 60 Est GFR (Non-Af Amer) > 60 POC Glucose (mg/dL) Random Glucose 179 H Calcium 8.4 Ferritin 119.0 Total Bilirubin 1.0 AST 41 H ALT 33 Alkaline Phosphatase 108 Total Protein 6.3 Albumin 2.8 L Globulin 3.5 Albumin/Globulin Ratio 0.8 L Vitamin B12 608 ANCA Screen c-ANCA Titer Proteinase 3 (PR3) p-ANCA Titer Atypical p-ANCA Titer Myeloperoxidase Ab 03/19/17 08:12 WBC RBC Hgb Hct MCV MCH MCHC RDW Plt Count MPV Gran % Lymph % (Auto) [place] % (Auto) Eos % (Auto) Baso % (Auto) Gran # Lymph # [place] # Eos # Baso # Retic Count APTT Protein C Antigen Sodium Potassium Chloride Carbon Dioxide Anion Gap BUN Creatinine Est GFR ( Amer) Est GFR (Non-Af Amer) POC Glucose (mg/dL) 201 H Random Glucose Calcium Ferritin Total Bilirubin AST ALT Alkaline Phosphatase Total Protein Albumin Globulin Albumin/Globulin Ratio Vitamin B12 ANCA Screen c-ANCA Titer Proteinase 3 (PR3) p-ANCA Titer Atypical p-ANCA Titer Myeloperoxidase Ab Fingerstick Blood Sugar Results: 201 Review of Systems - EENT Eyes: UNREMARKABLE Ears: UNREMARKABLE Nose/Mouth/Throat: UNREMARKABLE - Breasts Breasts: UNREMARKABLE - Cardiovascular Cardiovascular: UNREMARKABLE Critical Care Progress Note - Ventilator Checklist Head of Bed 30 Degrees: Yes PUD Prophalyxis: Yes DVT Prophylaxis: Yes - Nutrition Nutrition: Nutrition Category Date Time Status Consistent Carbohydrate [DIET] Diets 03/15/17 Dinner Ordered Assessment/Plan - Assessment and Plan (Free Text) Assessment: 46 y/o F w/ R hemothorax, Cardiomyopathy 15%, Intra cardiac thrombus and possible hypercoaguable state S/P R CT placement w/ hemothorax evacuation and continuing current treatment for complicated parapneumonic effusion .CX pending, path pending. On empiric abx and being followed by ID. WBC remains high w/o fevers. May need VATS ultimately to fully evacuate hemothorax and to evaluate for other causes such as malignancy etc. Cardiomyopathy from undertermined causes. External defib vest in place, plan to place AICD in the near future per Cardiology . Restarted back on heparin drip for anticoagulation for hypercoaguable state and Protein c& S def? Complicated case, may need transfer to tertiary hospital for transplant workup if no infectious or malignant causes are found. cc time 72 min
[2017-03-19 11:41] LABS: FOLATE 15.2 ng/mL
[2017-03-19] MEDS: Heparin 25,000units in D5W 25,000 UNITS/250 ML BAG IV PRN (11:54)
--- NOTE | 2017-03-19 12:09 | CP.PCM.PN ---
Subjective - Date & Time of Evaluation Date of Evaluation: 03/19/17 Time of Evaluation: 12:05 - Subjective Subjective: SOB improved Still CT tube drainage Sinus Tachy Objective - Vital Signs/Intake and Output Vital Signs (last 24 hours): Temp Pulse Resp BP Pulse Ox 99.2 F 110 H 28 H 146/95 H 99 03/19/17 04:00 03/19/17 09:34 03/19/17 07:45 03/19/17 09:34 03/19/17 07:45 Intake and Output: 03/19/17 03/19/17 06:59 18:59 Intake Total 1030 250 Output Total 900 Balance 130 250 - Medications Medications: Current Medications Acetaminophen (Tylenol 325mg Tab) 650 mg PO Q4H PRN PRN Reason: Fever >100.4 F Last Admin: 03/17/17 06:40 Dose: 650 mg Albuterol/Ipratropium (Duoneb 3 Mg/0.5 Mg (3 Ml) Ud) 3 ml IH Q2H PRN PRN Reason: Shortness of Breath Carvedilol (Coreg) 3.125 mg PO BID [facility] Last Admin: 03/19/17 09:33 Dose: 3.125 mg Digoxin (Lanoxin) 0.25 mg PO 1400 [facility] Last Admin: 03/18/17 14:04 Dose: 0.25 mg Furosemide (Lasix) 40 mg IV 0800,1400 [facility] Last Admin: 03/19/17 08:23 Dose: 40 mg Vancomycin HCl (Vancomycin 1gm) 1 gm in 250 mls @ 167 mls/hr IVPB Q12 [facility] PRN Reason: Protocol Last Admin: 03/19/17 09:33 Dose: 167 mls/hr Milrinone Lactate/Dextrose (Primacor 20mg/100ml D5w) 100 mls @ 7.103 mls/hr IV .Q14H5M PRN; Protocol; 0.2 MCG/KG/MIN PRN Reason: TITRATE PER MD ORDER Last Admin: 03/19/17 06:04 Dose: 0.2 mcg/kg/min, 7.103 mls/hr Doxycycline Hyclate 100 mg/ (Sodium Chloride) 100 mls @ 100 mls/hr IVPB Q12 [facility] PRN Reason: Protocol Last Admin: 03/19/17 11:00 Dose: 100 mls/hr Meropenem 1g/NS 100mL IVPB (Meropenem 1g/Ns 100ml Ivpb) 1 gm in 100 mls @ 100 mls/hr IVPB Q8 [facility] PRN Reason: Protocol Stop: 03/24/17 06:01 Last Admin: 03/19/17 06:03 Dose: 100 mls/hr Heparin Sodium/Dextrose (Heparin 25,000 Units/250ml In D5w) 25,000 units in 250 mls @ 10.124 mls/hr IV .Q24H PRN; Protocol; 9 UNITS/KG/HR PRN Reason: ADJUST RATE PER PROTOCOL Last Admin: 03/19/17 11:54 Dose: 9 units/kg/hr, 10.124 mls/hr Insulin Detemir (Levemir) 10 unit SC HS [facility] Last Admin: 03/18/17 22:29 Dose: 10 unit Insulin Human Lispro (Humalog High) 0 units SC ACHS [facility] PRN Reason: Protocol Last Admin: 03/19/17 11:51 Dose: 7 units Lisinopril (Zestril) 2.5 mg PO DAILY [facility] Last Admin: 03/19/17 09:34 Dose: 2.5 mg Morphine Sulfate (Morphine) 4 mg IVP Q4H PRN PRN Reason: Pain, moderate (4-7) Last Admin: 03/19/17 09:30 Dose: 4 mg Ondansetron HCl (Zofran Inj) 4 mg IVP Q6H PRN PRN Reason: Nausea/Vomiting Pantoprazole Sodium (Protonix Ec Tab) 40 mg PO 0600,1630 [facility] Last Admin: 03/19/17 06:08 Dose: 40 mg Potassium Chloride (K-Dur 20 Meq Er Tab) 20 meq PO BRK [facility] Spironolactone (Aldactone) 25 mg PO BID [facility] Last Admin: 03/19/17 09:33 Dose: 25 mg Verapamil HCl (Calan Tab) 40 mg PO TID [facility] Last Admin: 03/19/17 09:32 Dose: 40 mg - Labs Labs: 03/19/17 05:30 03/19/17 05:30 PT 28.6 Seconds (9.9-11.8) H 03/17/17 10:40 INR 2.65 (0.93-1.08) H 03/17/17 10:40 APTT 78.8 Seconds (23.7-30.8) H* 03/19/17 05:30 Assessment and Plan - Assessment and Plan (Free Text) Assessment: CHF SLE Pleural Effusion s/p Rt. CT tube H/O Apical thrombus HypoK+ Plan: KDur 20 mEq given today Start KDur 20mEq daily Cont. Acetaminophen (Tylenol 325mg Tab) 650 mg PO Q4H PRN PRN Reason: Fever >100.4 F Last Admin: 03/17/17 06:40 Dose: 650 mg Albuterol/Ipratropium (Duoneb 3 Mg/0.5 Mg (3 Ml) Ud) 3 ml IH Q2H PRN PRN Reason: Shortness of Breath Carvedilol (Coreg) 3.125 mg PO BID [facility] Last Admin: 03/19/17 09:33 Dose: 3.125 mg Digoxin (Lanoxin) 0.25 mg PO 1400 [facility] Last Admin: 03/18/17 14:04 Dose: 0.25 mg Furosemide (Lasix) 40 mg IV 0800,1400 [facility] Last Admin: 03/19/17 08:23 Dose: 40 mg Vancomycin HCl (Vancomycin 1gm) 1 gm in 250 mls @ 167 mls/hr IVPB Q12 [facility] PRN Reason: Protocol Last Admin: 03/19/17 09:33 Dose: 167 mls/hr Milrinone Lactate/Dextrose (Primacor 20mg/100ml D5w) 100 mls @ 7.103 mls/hr IV .Q14H5M PRN; Protocol; 0.2 MCG/KG/MIN PRN Reason: TITRATE PER MD ORDER Last Admin: 03/19/17 06:04 Dose: 0.2 mcg/kg/min, 7.103 mls/hr Doxycycline Hyclate 100 mg/ (Sodium Chloride) 100 mls @ 100 mls/hr IVPB Q12 [facility] PRN Reason: Protocol Last Admin: 03/19/17 11:00 Dose: 100 mls/hr Meropenem 1g/NS 100mL IVPB (Meropenem 1g/Ns 100ml Ivpb) 1 gm in 100 mls @ 100 mls/hr IVPB Q8 [facility] PRN Reason: Protocol Stop: 03/24/17 06:01 Last Admin: 03/19/17 06:03 Dose: 100 mls/hr Heparin Sodium/Dextrose (Heparin 25,000 Units/250ml In D5w) 25,000 units in 250 mls @ 10.124 mls/hr IV .Q24H PRN; Protocol; 9 UNITS/KG/HR PRN Reason: ADJUST RATE PER PROTOCOL Last Admin: 03/19/17 11:54 Dose: 9 units/kg/hr, 10.124 mls/hr Insulin Detemir (Levemir) 10 unit SC HS [facility] Last Admin: 03/18/17 22:29 Dose: 10 unit Insulin Human Lispro (Humalog High) 0 units SC ACHS [facility] PRN Reason: Protocol Last Admin: 03/19/17 11:51 Dose: 7 units Lisinopril (Zestril) 2.5 mg PO DAILY [facility] Last Admin: 03/19/17 09:34 Dose: 2.5 mg Morphine Sulfate (Morphine) 4 mg IVP Q4H PRN PRN Reason: Pain, moderate (4-7) Last Admin: 03/19/17 09:30 Dose: 4 mg Ondansetron HCl (Zofran Inj) 4 mg IVP Q6H PRN PRN Reason: Nausea/Vomiting Pantoprazole Sodium (Protonix Ec Tab) 40 mg PO 0600,1630 [facility] Last Admin: 03/19/17 06:08 Dose: 40 mg Potassium Chloride (K-Dur 20 Meq Er Tab) 20 meq PO BRK [facility] Spironolactone (Aldactone) 25 mg PO BID [facility] Last Admin: 03/19/17 09:33 Dose: 25 mg Verapamil HCl (Calan Tab) 40 mg PO TID [facility] Last Admin: 03/19/17 09:32 Dose: [address] removal tomorrow
--- NOTE | 2017-03-19 12:12 | CP.PCM.PN ---
Subjective - Date & Time of Evaluation Date of Evaluation: 03/19/17 Time of Evaluation: 12:11 - Subjective Subjective: this note is for missing physical exam Objective - Vital Signs/Intake and Output Vital Signs (last 24 hours): Temp Pulse Resp BP Pulse Ox 99.2 F 110 H 28 H 146/95 H 99 03/19/17 04:00 03/19/17 09:34 03/19/17 07:45 03/19/17 09:34 03/19/17 07:45 Intake and Output: 03/19/17 03/19/17 06:59 18:59 Intake Total 1030 250 Output Total 900 Balance 130 250 - Medications Medications: Current Medications Acetaminophen (Tylenol 325mg Tab) 650 mg PO Q4H PRN PRN Reason: Fever >100.4 F Last Admin: 03/17/17 06:40 Dose: 650 mg Albuterol/Ipratropium (Duoneb 3 Mg/0.5 Mg (3 Ml) Ud) 3 ml IH Q2H PRN PRN Reason: Shortness of Breath Carvedilol (Coreg) 3.125 mg PO BID [facility] Last Admin: 03/19/17 09:33 Dose: 3.125 mg Digoxin (Lanoxin) 0.25 mg PO 1400 [facility] Last Admin: 03/18/17 14:04 Dose: 0.25 mg Furosemide (Lasix) 40 mg IV 0800,1400 [facility] Last Admin: 03/19/17 08:23 Dose: 40 mg Vancomycin HCl (Vancomycin 1gm) 1 gm in 250 mls @ 167 mls/hr IVPB Q12 [facility] PRN Reason: Protocol Last Admin: 03/19/17 09:33 Dose: 167 mls/hr Milrinone Lactate/Dextrose (Primacor 20mg/100ml D5w) 100 mls @ 7.103 mls/hr IV .Q14H5M PRN; Protocol; 0.2 MCG/KG/MIN PRN Reason: TITRATE PER MD ORDER Last Admin: 03/19/17 06:04 Dose: 0.2 mcg/kg/min, 7.103 mls/hr Doxycycline Hyclate 100 mg/ (Sodium Chloride) 100 mls @ 100 mls/hr IVPB Q12 [facility] PRN Reason: Protocol Last Admin: 03/19/17 11:00 Dose: 100 mls/hr Meropenem 1g/NS 100mL IVPB (Meropenem 1g/Ns 100ml Ivpb) 1 gm in 100 mls @ 100 mls/hr IVPB Q8 [facility] PRN Reason: Protocol Stop: 03/24/17 06:01 Last Admin: 03/19/17 06:03 Dose: 100 mls/hr Heparin Sodium/Dextrose (Heparin 25,000 Units/250ml In D5w) 25,000 units in 250 mls @ 10.124 mls/hr IV .Q24H PRN; Protocol; 9 UNITS/KG/HR PRN Reason: ADJUST RATE PER PROTOCOL Last Admin: 03/19/17 11:54 Dose: 9 units/kg/hr, 10.124 mls/hr Insulin Detemir (Levemir) 10 unit SC HS [facility] Last Admin: 03/18/17 22:29 Dose: 10 unit Insulin Human Lispro (Humalog High) 0 units SC ACHS [facility] PRN Reason: Protocol Last Admin: 03/19/17 11:51 Dose: 7 units Lisinopril (Zestril) 2.5 mg PO DAILY [facility] Last Admin: 03/19/17 09:34 Dose: 2.5 mg Morphine Sulfate (Morphine) 4 mg IVP Q4H PRN PRN Reason: Pain, moderate (4-7) Last Admin: 03/19/17 09:30 Dose: 4 mg Ondansetron HCl (Zofran Inj) 4 mg IVP Q6H PRN PRN Reason: Nausea/Vomiting Pantoprazole Sodium (Protonix Ec Tab) 40 mg PO 0600,1630 [facility] Last Admin: 03/19/17 06:08 Dose: 40 mg Potassium Chloride (K-Dur 20 Meq Er Tab) 20 meq PO BRK [facility] Spironolactone (Aldactone) 25 mg PO BID [facility] Last Admin: 03/19/17 09:33 Dose: 25 mg Verapamil HCl (Calan Tab) 40 mg PO TID [facility] Last Admin: 03/19/17 09:32 Dose: 40 mg - Labs Labs: 03/19/17 05:30 03/19/17 05:30 PT 28.6 Seconds (9.9-11.8) H 03/17/17 10:40 INR 2.65 (0.93-1.08) H 03/17/17 10:40 APTT 78.8 Seconds (23.7-30.8) H* 03/19/17 05:30 - Head Exam Head Exam: NORMAL INSPECTION - Eye Exam Eye Exam: Normal appearance - ENT Exam ENT Exam: Normal Exam - Respiratory Exam Respiratory Exam: Decreased Breath Sounds - Cardiovascular Exam Cardiovascular Exam: Tachycardia, REGULAR RHYTHM - Back Exam Back Exam: NORMAL INSPECTION
[2017-03-19] MEDS: Digoxin 250 mcg (0.25 mg) Tab PO SCH (13:15)
[2017-03-19] MEDS: Insulin Detemir 100 units/ml Vial (Levemir) SC SCH (22:21)
[2017-03-20] MEDS: Meropenem 1g/NS 100mL IVPB 1 GM/100 ML PIGGYBACK IVPB SCH ×3 (05:23→21:58)
[2017-03-20] MEDS: Pantoprazole 40 mg EC Tab PO SCH ×2 (05:25→17:11)
[2017-03-20] MEDS: Milrinone 20mg/100ml D5W 100 ML IV PRN ×2 (05:26→19:41)
[2017-03-20 05:49] LABS: BASO # 0.05 K/mm3 (0.0-2.0); BASO % 0.3 % (0.0-3.0); EOS # 0.4 (0.0-0.7); EOS % 2.1 % (1.5-5.0); GRAN # 10.97 (1.4-6.5); GRAN % 64.5 % (50.0-68.0); LYMPH # 4.4 (1.2-3.4); LYMPH % 25.9 % (22.0-35.0); MEAN CELL VOLUME 76.6 fL (80.0-105.0); MEAN CORPUSCULAR HEMOGLOBIN 24.3 pg (25.0-35.0); MEAN CORPUSCULAR HGB CONC 31.7 g/dl (31.0-37.0); MEAN PLATELET VOLUME 8.6 fl (7.0-11.0); MONO # 1.2 (0.1-0.6); MONO % 7.2 % (1.0-6.0); PLATELET COUNT 542 10^3/uL (120.0-450.0); RBC 4.11 10^6/uL (3.5-6.1); RED CELL DISTRIBUTION WIDTH 17.3 % (11.5-14.5)
[2017-03-20 05:59] LABS: ALB/GLOB RATIO 0.9 (1.1-1.8); ALBUMIN 3.1 g/dL (3.0-4.8); ALT/SGPT 24 U/L (7-56); AST/SGOT 42 U/L (15-39); BLOOD UREA NITROGEN 9 mg/dL (7-21); CALCIUM 9.2 mg/dL (8.4-10.5); GFR AFRICAN-AMERICAN > 60; GFR NON-AFRICAN AMERICAN > 60
--- NOTE | 2017-03-20 07:22 | RAD ---
HISTORY: s/p CT to water seal COMPARISON: Comparison made with prior chest radiograph and CT scan chest dated 03/18/2017 and 03/17/2017 respectively. FINDINGS: LUNGS: In situ right-sided chest tube again noted. . Right-sided hydro pneumothorax may have diminished. Areas of atelectasis in the right lower lung field again noted. Patchy opacity as seen scattered throughout the right upper lobe. Left lung is clear. PLEURA: As above. . CARDIOVASCULAR: Normal. OSSEOUS STRUCTURES: No significant abnormalities. VISUALIZED UPPER ABDOMEN: Normal. OTHER FINDINGS: None. IMPRESSION: In situ right-sided chest tube again noted. . Right-sided hydro pneumothorax may have diminished. Areas of atelectasis in the right lower lung field again noted. Patchy opacity seen throughout the right upper lobe Left lung is clear
[2017-03-20] MEDS: Morphine 4 mg/ml ISec IVP PRN ×2 (07:48→18:44)
--- NOTE | 2017-03-20 07:49 | CP.PCM.PN ---
Subjective - Date & Time of Evaluation Date of Evaluation: 03/20/17 Time of Evaluation: 07:46 - Subjective Subjective: SURGERY PROGRESS NOTE FOR DR. HENSLEY 46F seen and examined at bedside. Patient doing well, denies shortness of breath , chest pain. Chest tube output 250cc/24hrs. Objective - Vital Signs/Intake and Output Vital Signs (last 24 hours): Temp Pulse Resp BP Pulse Ox 99 F 97 H 27 H 154/85 H 100 03/20/17 04:00 03/20/17 06:45 03/20/17 06:45 03/20/17 06:00 03/20/17 06:45 Intake and Output: 03/20/17 03/20/17 06:59 18:59 Intake Total 1054 Output Total 300 Balance 754 - Medications Medications: Current Medications Acetaminophen (Tylenol 325mg Tab) 650 mg PO Q4H PRN PRN Reason: Fever >100.4 F Last Admin: 03/17/17 06:40 Dose: 650 mg Albuterol/Ipratropium (Duoneb 3 Mg/0.5 Mg (3 Ml) Ud) 3 ml IH Q2H PRN PRN Reason: Shortness of Breath Carvedilol (Coreg) 3.125 mg PO BID [facility] Last Admin: 03/19/17 17:25 Dose: 3.125 mg Digoxin (Lanoxin) 0.25 mg PO 1400 [facility] Last Admin: 03/19/17 13:15 Dose: 0.25 mg Furosemide (Lasix) 40 mg IV 0800,1400 [facility] Last Admin: 03/19/17 13:16 Dose: 40 mg Vancomycin HCl (Vancomycin 1gm) 1 gm in 250 mls @ 167 mls/hr IVPB Q12 [facility] PRN Reason: Protocol Last Admin: 03/19/17 22:00 Dose: 167 mls/hr Milrinone Lactate/Dextrose (Primacor 20mg/100ml D5w) 100 mls @ 7.103 mls/hr IV .Q14H5M PRN; Protocol; 0.2 MCG/KG/MIN PRN Reason: TITRATE PER MD ORDER Last Admin: 03/20/17 05:26 Dose: 0.2 mcg/kg/min, 7.103 mls/hr Doxycycline Hyclate 100 mg/ (Sodium Chloride) 100 mls @ 100 mls/hr IVPB Q12 [facility] PRN Reason: Protocol Last Admin: 03/19/17 22:00 Dose: 100 mls/hr Meropenem 1g/NS 100mL IVPB (Meropenem 1g/Ns 100ml Ivpb) 1 gm in 100 mls @ 100 mls/hr IVPB Q8 [facility] PRN Reason: Protocol Stop: 03/24/17 06:01 Last Admin: 03/20/17 05:23 Dose: 100 mls/hr Heparin Sodium/Dextrose (Heparin 25,000 Units/250ml In D5w) 25,000 units in 250 mls @ 10.124 mls/hr IV .Q24H PRN; Protocol; 9 UNITS/KG/HR PRN Reason: ADJUST RATE PER PROTOCOL Last Admin: 03/19/17 11:54 Dose: 9 units/kg/hr, 10.124 mls/hr Insulin Detemir (Levemir) 10 unit SC HS [facility] Last Admin: 03/19/17 22:21 Dose: 10 unit Insulin Human Lispro (Humalog High) 0 units SC ACHS [facility] PRN Reason: Protocol Last Admin: 03/19/17 22:21 Dose: Not Given Lisinopril (Zestril) 2.5 mg PO DAILY [facility] Last Admin: 03/19/17 09:34 Dose: 2.5 mg Morphine Sulfate (Morphine) 4 mg IVP Q4H PRN PRN Reason: Pain, moderate (4-7) Last Admin: 03/19/17 21:45 Dose: 4 mg Ondansetron HCl (Zofran Inj) 4 mg IVP Q6H PRN PRN Reason: Nausea/Vomiting Pantoprazole Sodium (Protonix Ec Tab) 40 mg PO 0600,1630 [facility] Last Admin: 03/20/17 05:25 Dose: 40 mg Potassium Chloride (K-Dur 20 Meq Er Tab) 20 meq PO BRK [facility] Spironolactone (Aldactone) 25 mg PO BID [facility] Last Admin: 03/19/17 17:27 Dose: 25 mg Verapamil HCl (Calan Tab) 40 mg PO TID [facility] Last Admin: 03/19/17 17:24 Dose: 40 mg - Labs Labs: 03/20/17 05:20 03/20/17 05:20 PT 28.6 Seconds (9.9-11.8) H 03/17/17 10:40 INR 2.65 (0.93-1.08) H 03/17/17 10:40 APTT 64.6 Seconds (23.7-30.8) H 03/20/17 05:20 - Constitutional Appears: Non-toxic, No Acute Distress - Head Exam Head Exam: ATRAUMATIC - Eye Exam Eye Exam: EOMI, PERRL - ENT Exam ENT Exam: Mucous Membranes Moist - Respiratory Exam Respiratory Exam: Clear to Ausculation Bilateral, NORMAL BREATHING PATTERN - Cardiovascular Exam Cardiovascular Exam: REGULAR RHYTHM, +S1, +S2 Additional comments: chest tube in place - output 250cc/24hrs - GI/Abdominal Exam GI & Abdominal Exam: Soft. absent: Distended, Firm, Guarding, Rigid, Tenderness , Rebound - Neurological Exam Neurological Exam: Alert, Awake - Skin Skin Exam: Dry, Intact, Normal Color, Warm Assessment and Plan - Assessment and Plan (Free Text) Assessment: 46F with right hemothorax s/p chest tube placement POD5, chest tube pull POD0 Plan: - chest tube pulled this morning - f/u CXR s/p pull - Monitor vitals, clinical symptoms Further recs discuss with Dr. Nixon Darnell, PGY1
[2017-03-20] MEDS: Potassium Chloride 20 mEq ER Tab PO SCH (09:06)
[2017-03-20] MEDS: Insulin Lispro (HUMAlog) HIGH Coverage SC SCH ×4 (09:06→22:00)
--- NOTE | 2017-03-20 10:41 | CP.PCM.PN ---
Subjective - Date & Time of Evaluation Date of Evaluation: 03/20/17 Time of Evaluation: 09:30 - Subjective Subjective: The right sided chest tube was removed this morning. Patient is breathing better , no fevers overnight, no diarrhea. Objective - Vital Signs/Intake and Output Vital Signs (last 24 hours): Temp Pulse Resp BP Pulse Ox 99 F 97 H 27 H 154/85 H 100 03/20/17 04:00 03/20/17 06:45 03/20/17 06:45 03/20/17 06:00 03/20/17 06:45 Intake and Output: 03/20/17 03/20/17 06:59 18:59 Intake Total 1054 Output Total 300 Balance 754 - Medications Medications: Current Medications Acetaminophen (Tylenol 325mg Tab) 650 mg PO Q4H PRN PRN Reason: Fever >100.4 F Last Admin: 03/17/17 06:40 Dose: 650 mg Albuterol/Ipratropium (Duoneb 3 Mg/0.5 Mg (3 Ml) Ud) 3 ml IH Q2H PRN PRN Reason: Shortness of Breath Carvedilol (Coreg) 3.125 mg PO BID [facility] OF [facility] Last Admin: 03/19/17 17:25 Dose: 3.125 mg Digoxin (Lanoxin) 0.25 mg PO 1400 [facility] Last Admin: 03/19/17 13:15 Dose: 0.25 mg Furosemide (Lasix) 40 mg IV 0800,1400 [facility] Last Admin: 03/19/17 13:16 Dose: 40 mg Milrinone Lactate/Dextrose (Primacor 20mg/100ml D5w) 100 mls @ 7.103 mls/hr IV .Q14H5M PRN; Protocol; 0.2 MCG/KG/MIN PRN Reason: TITRATE PER MD ORDER Last Admin: 03/20/17 05:26 Dose: 0.2 mcg/kg/min, 7.103 mls/hr Doxycycline Hyclate 100 mg/ (Sodium Chloride) 100 mls @ 100 mls/hr IVPB Q12 [facility] PRN Reason: Protocol Last Admin: 03/19/17 22:00 Dose: 100 mls/hr Meropenem 1g/NS 100mL IVPB (Meropenem 1g/Ns 100ml Ivpb) 1 gm in 100 mls @ 100 mls/hr IVPB Q8 [facility] PRN Reason: Protocol Stop: 03/24/17 06:01 Last Admin: 03/20/17 05:23 Dose: 100 mls/hr Heparin Sodium/Dextrose (Heparin 25,000 Units/250ml In D5w) 25,000 units in 250 mls @ 10.124 mls/hr IV .Q24H PRN; Protocol; 9 UNITS/KG/HR PRN Reason: ADJUST RATE PER PROTOCOL Last Admin: 03/19/17 11:54 Dose: 9 units/kg/hr, 10.124 mls/hr Insulin Detemir (Levemir) 10 unit SC HS [facility] Last Admin: 03/19/17 22:21 Dose: 10 unit Insulin Human Lispro (Humalog High) 0 units SC ACHS [facility] PRN Reason: Protocol Last Admin: 03/19/17 22:21 Dose: Not Given Lisinopril (Zestril) 2.5 mg PO DAILY [facility] Last Admin: 03/19/17 09:34 Dose: 2.5 mg Morphine Sulfate (Morphine) 4 mg IVP Q4H PRN PRN Reason: Pain, moderate (4-7) Last Admin: 03/20/17 07:48 Dose: 4 mg Ondansetron HCl (Zofran Inj) 4 mg IVP Q6H PRN PRN Reason: Nausea/Vomiting Pantoprazole Sodium (Protonix Ec Tab) 40 mg PO 0600,1630 [facility] Last Admin: 03/20/17 05:25 Dose: 40 mg Potassium Chloride (K-Dur 20 Meq Er Tab) 20 meq PO BRK [facility] Spironolactone (Aldactone) 25 mg PO BID [facility] Last Admin: 03/19/17 17:27 Dose: 25 mg Verapamil HCl (Calan Tab) 40 mg PO TID [facility] Last Admin: 03/19/17 17:24 Dose: 40 mg - Labs Labs: 03/20/17 05:20 03/20/17 05:20 PT 28.6 Seconds (9.9-11.8) H 03/17/17 10:40 INR 2.65 (0.93-1.08) H 03/17/17 10:40 APTT 64.6 Seconds (23.7-30.8) H 03/20/17 05:20 - Constitutional Appears: Non-toxic, No Acute Distress - Head Exam Head Exam: NORMAL INSPECTION - ENT Exam ENT Exam: Mucous Membranes Moist - Neck Exam Neck Exam: absent: Meningismus - Respiratory Exam Respiratory Exam: Decreased Breath Sounds - Cardiovascular Exam Cardiovascular Exam: +S1, +S2 - GI/Abdominal Exam GI & Abdominal Exam: Soft. absent: Tenderness Assessment and Plan - Assessment and Plan (Free Text) Plan: Assessment Systemic Inflammatory Response Syndrome, consider due to right sided pleural effusion, etiology to be determined, consider right sided healthcare-associated pneumonia S/P chest tube placement POD #5 and now removed systemic lupus erythematosus morbid obesity with BMI 41 DM asthma history of migraine headaches history of spinal stenosis history of ectopic Plan continue Doxycycline and Merrem (day 6) and will d/c IV Vancomycin - should be able to d/c antibiotics by tomorrow (target 7 days of therapy); repeat blood cx are negative (1st blood cx are negative as well), pleural fluid cultures are also negative; PCT is only 0.18; reviewed repeat CT chest will continue to monitor clinically
--- NOTE | 2017-03-20 10:58 | RAD ---
HISTORY: s/p chest tube removal COMPARISON: Earlier same day FINDINGS: LUNGS: Chest tube has been removed. There is no pneumothorax. There is a small right pleural effusion PLEURA: As above CARDIOVASCULAR: Normal. OSSEOUS STRUCTURES: No significant abnormalities. VISUALIZED UPPER ABDOMEN: Normal. OTHER FINDINGS: None. IMPRESSION: Small right pleural effusion. No evidence of pneumothorax
[2017-03-20] MEDS: Heparin 25,000units in D5W 25,000 UNITS/250 ML BAG IV PRN (13:34)
--- NOTE | 2017-03-20 13:41 | CP.PCM.PN ---
<ТАТЬЯНА METCALF - Last Filed: 03/20/17 17:16> Subjective - Date & Time of Evaluation Date of Evaluation: 03/20/17 Time of Evaluation: 09:30 - Subjective Subjective: Medicine progress note: Pt was seen and examined at bedside. Pt denies any acute overnight events. Pt CT removed by surgery. Pt reports decreasing dyspnea. Pt is OOB to toilet. Pt tolerates diet well. Pt denies n/v/f, CP, and abdominal pain. Objective - Vital Signs/Intake and Output Vital Signs (last 24 hours): Temp Pulse Resp BP Pulse Ox 99 F 98 H 30 H 110/71 98 03/20/17 12:00 03/20/17 13:00 03/20/17 13:00 03/20/17 12:00 03/20/17 13:00 Intake and Output: 03/20/17 03/20/17 06:59 18:59 Intake Total 1054 250 Output Total 300 Balance 754 250 - Medications Medications: Current Medications Acetaminophen (Tylenol 325mg Tab) 650 mg PO Q4H PRN PRN Reason: Fever >100.4 F Last Admin: 03/17/17 06:40 Dose: 650 mg Albuterol/Ipratropium (Duoneb 3 Mg/0.5 Mg (3 Ml) Ud) 3 ml IH Q2H PRN PRN Reason: Shortness of Breath Carvedilol (Coreg) 3.125 mg PO BID [facility] Last Admin: 03/20/17 09:05 Dose: 3.125 mg Digoxin (Lanoxin) 0.25 mg PO 1400 [facility] Last Admin: 03/19/17 13:15 Dose: 0.25 mg Furosemide (Lasix) 40 mg IV 0800,1400 [facility] Last Admin: 03/20/17 09:03 Dose: 40 mg Milrinone Lactate/Dextrose (Primacor 20mg/100ml D5w) 100 mls @ 7.103 mls/hr IV .Q14H5M PRN; Protocol; 0.2 MCG/KG/MIN PRN Reason: TITRATE PER MD ORDER Last Admin: 03/20/17 05:26 Dose: 0.2 mcg/kg/min, 7.103 mls/hr Doxycycline Hyclate 100 mg/ (Sodium Chloride) 100 mls @ 100 mls/hr IVPB Q12 [facility] PRN Reason: Protocol Last Admin: 03/20/17 09:03 Dose: 100 mls/hr Meropenem 1g/NS 100mL IVPB (Meropenem 1g/Ns 100ml Ivpb) 1 gm in 100 mls @ 100 mls/hr IVPB Q8 [facility] PRN Reason: Protocol Stop: 03/24/17 06:01 Last Admin: 03/20/17 05:23 Dose: 100 mls/hr Heparin Sodium/Dextrose (Heparin 25,000 Units/250ml In D5w) 25,000 units in 250 mls @ 10.124 mls/hr IV .Q24H PRN; Protocol; 9 UNITS/KG/HR PRN Reason: ADJUST RATE PER PROTOCOL Last Admin: 03/20/17 13:34 Dose: 9 units/kg/hr, 10.124 mls/hr Insulin Detemir (Levemir) 10 unit SC HS [facility] Last Admin: 03/19/17 22:21 Dose: 10 unit Insulin Human Lispro (Humalog High) 0 units SC ACHS [facility] PRN Reason: Protocol Last Admin: 03/20/17 09:06 Dose: 2 units Lisinopril (Zestril) 2.5 mg PO DAILY [facility] Last Admin: 03/20/17 09:05 Dose: 2.5 mg Morphine Sulfate (Morphine) 4 mg IVP Q4H PRN PRN Reason: Pain, moderate (4-7) Last Admin: 03/20/17 07:48 Dose: 4 mg Ondansetron HCl (Zofran Inj) 4 mg IVP Q6H PRN PRN Reason: Nausea/Vomiting Pantoprazole Sodium (Protonix Ec Tab) 40 mg PO 0600,1630 [facility] Last Admin: 03/20/17 05:25 Dose: 40 mg Potassium Chloride (K-Dur 20 Meq Er Tab) 20 meq PO BRK [facility] Last Admin: 03/20/17 09:06 Dose: 20 meq Spironolactone (Aldactone) 25 mg PO BID [facility] Last Admin: 03/20/17 09:05 Dose: 25 mg Verapamil HCl (Calan Tab) 40 mg PO TID [facility] Last Admin: 03/20/17 09:05 Dose: 40 mg - Labs Labs: 03/20/17 05:20 03/20/17 05:20 PT 28.6 Seconds (9.9-11.8) H 03/17/17 10:40 INR 2.65 (0.93-1.08) H 03/17/17 10:40 APTT 64.6 Seconds (23.7-30.8) H 03/20/17 05:20 - Head Exam Head Exam: ATRAUMATIC, NORMOCEPHALIC - Eye Exam Eye Exam: EOMI, PERRL - ENT Exam ENT Exam: Mucous Membranes Moist - Neck Exam Neck Exam: Full ROM - Respiratory Exam Respiratory Exam: Clear to Ausculation Bilateral. absent: Rales, Rhonchi, Wheezes - Cardiovascular Exam Cardiovascular Exam: RRR. absent: Gallop, Rubs, Murmur - Extremities Exam Extremities Exam: Full ROM. absent: Joint Swelling, Pedal Edema - Neurological Exam Neurological Exam: Alert, Oriented x3 - Skin Skin Exam: Dry, Intact, Normal Color, Warm Assessment and Plan - Assessment and Plan (Free Text) Assessment: Patient is a 46 yo with severe dilated cardiomyopathy with severe LV systolic dysfunction admitted to the ICU for evaluation and treatment of acute respiratory distress, anemia, and a supratherapeutic INR 1. Acute respiratory distress 2/2 Empyema vs. Hemothorax vs pna -Chest tube removed by surgery -CT chest: significant dec in size of pleural effusion , reexpansion of RU lung , partial expansion of R middle and RL lung. -F/u pleural fluid cultures, blood cx x 2 negative -ID consult - merro , vancomycin and doxy -Cont. Duoneb prn -PT consulted 2. Dilated cardiomyopathy with severe LV systolic dysfunction -MUGA scan: mod LV dysfunction w difusse hypokinessi LVEF 37% -Heparin ggt - pmh of LV thrombus -Echo revealed no LV thrombus, EF 15% with dilated and severe systolic dys -Consulted cardiology - rec bridge to coumadin start at 10 mg -Cont Milrinone, Lisinopril, Carvedilol, digoxin, verapamil, Aldactone -Monitor INR 3. Hypokalemia - K 3.9, repleted with KCl PO - cont to monitor via BMP 4. Left leg pain -Extremity US negative for DVT -Morphine 4q4 prn 5. Insulin dependent diabetes mellitus -Levemir 10 units -Humalog ISS as protocol 6. GI/DVT PPx -Protonix -Lovenox 7. Protein C Deficiency -HemeOnc on board -these results may be inaccurate given testing done while on coumadin -check Factor V Leiden and prothrombin gene mutation Patient and plan was seen and discussed in detail with Dr. Martins. <Rob Martins - Last Filed: 03/20/17 23:11> Objective - Vital Signs/Intake and Output Vital Signs (last 24 hours): Temp Pulse Resp BP Pulse Ox 98.7 F 92 H 31 H 109/54 L 97 03/20/17 20:00 03/20/17 20:15 03/20/17 20:15 03/20/17 20:00 03/20/17 16:00 Intake and Output: 03/20/17 03/21/17 18:59 06:59 Intake Total 1150 100 Output Total 3040 Balance -1890 100 - Medications Medications: Current Medications Acetaminophen (Tylenol 325mg Tab) 650 mg PO Q4H PRN PRN Reason: Fever >100.4 F Last Admin: 03/17/17 06:40 Dose: 650 mg Albuterol/Ipratropium (Duoneb 3 Mg/0.5 Mg (3 Ml) Ud) 3 ml IH Q2H PRN PRN Reason: Shortness of Breath Carvedilol (Coreg) 3.125 mg PO BID [facility] Last Admin: 03/20/17 17:08 Dose: 3.125 mg Digoxin (Lanoxin) 0.25 mg PO 1400 [facility] Last Admin: 03/20/17 13:49 Dose: 0.25 mg Furosemide (Lasix) 40 mg IV 0800,1400 [facility] Last Admin: 03/20/17 13:48 Dose: 40 mg Milrinone Lactate/Dextrose (Primacor 20mg/100ml D5w) 100 mls @ 7.103 mls/hr IV .Q14H5M PRN; Protocol; 0.2 MCG/KG/MIN PRN Reason: TITRATE PER MD ORDER Last Admin: 03/20/17 19:41 Dose: 0.2 mcg/kg/min, 7.103 mls/hr Doxycycline Hyclate 100 mg/ (Sodium Chloride) 100 mls @ 100 mls/hr IVPB Q12 [facility] PRN Reason: Protocol Last Admin: 03/20/17 21:52 Dose: 100 mls/hr Meropenem 1g/NS 100mL IVPB (Meropenem 1g/Ns 100ml Ivpb) 1 gm in 100 mls @ 100 mls/hr IVPB Q8 [facility] PRN Reason: Protocol Stop: 03/24/17 06:01 Last Admin: 03/20/17 21:58 Dose: 100 mls/hr Heparin Sodium/Dextrose (Heparin 25,000 Units/250ml In D5w) 25,000 units in 250 mls @ 10.124 mls/hr IV .Q24H PRN; Protocol; 9 UNITS/KG/HR PRN Reason: ADJUST RATE PER PROTOCOL Last Admin: 03/20/17 13:34 Dose: 9 units/kg/hr, 10.124 mls/hr Insulin Detemir (Levemir) 10 unit SC HS [facility] Last Admin: 03/20/17 22:17 Dose: 10 unit Insulin Human Lispro (Humalog High) 0 units SC ACHS [facility] PRN Reason: Protocol Last Admin: 03/20/17 22:00 Dose: Not Given Lisinopril (Zestril) 2.5 mg PO DAILY [facility] Last Admin: 03/20/17 09:05 Dose: 2.5 mg Morphine Sulfate (Morphine) 4 mg IVP Q4H PRN PRN Reason: Pain, moderate (4-7) Last Admin: 03/20/17 18:44 Dose: 4 mg Ondansetron HCl (Zofran Inj) 4 mg IVP Q6H PRN PRN Reason: Nausea/Vomiting Pantoprazole Sodium (Protonix Ec Tab) 40 mg PO 0600,1630 [facility] Last Admin: 03/20/17 17:11 Dose: 40 mg Potassium Chloride (K-Dur 20 Meq Er Tab) 20 meq PO BRK [facility] Last Admin: 03/20/17 09:06 Dose: 20 meq Spironolactone (Aldactone) 25 mg PO BID [facility] Last Admin: 03/20/17 17:10 Dose: 25 mg Verapamil HCl (Calan Tab) 40 mg PO TID [facility] Last Admin: 03/20/17 17:10 Dose: 40 mg Warfarin Sodium (Coumadin) 10 mg PO 1800 [facility] PRN Reason: Protocol Stop: 03/22/17 23:59 Last Admin: 03/20/17 17:10 Dose: 10 mg Warfarin Sodium (Coumadin) 7.5 mg PO 1800 [facility] PRN Reason: Protocol - Labs Labs: 03/20/17 05:20 03/20/17 05:20 PT 28.6 Seconds (9.9-11.8) H 03/17/17 10:40 INR 2.65 (0.93-1.08) H 03/17/17 10:40 APTT 64.6 Seconds (23.7-30.8) H 03/20/17 05:20 Attending/Attestation - Attestation I have personally seen and examined this patient.: Yes I have fully participated in the care of the patient.: Yes I have reviewed all pertinent clinical information, including history, physical exam and plan: Yes Notes (Text): 03/20/17 23:06 46 year old female with past medical history of cardiac thrombus, dilated cardiomyopathy and diabetes who presented with sepsis and respiratory distress. She was found to have large right pleural effusion and supratherapeutic INR. She was seen by surgery and chest tube was placed. She was started on iv antibiotics. Her symptoms have improved and her chest tube was removed today. Repeat cxr was reviewed. Repeat echocardiogram was reviewed; no cardiac thrombus was seen. MUGA scan was also reviewed. She is on heparin drip for anticoagulation and coumadin today is also started. She is being followed by cardiology and hematology. She is on primacor, lasix, coreg, digoxin, lisinopril, and spironalactone. She is on levemir and insulin ss for diabetes. PT evaluation is requested. Rob Martins MD Hospitalist.
[2017-03-20] MEDS: Digoxin 250 mcg (0.25 mg) Tab PO SCH (13:49)
--- NOTE | 2017-03-20 13:54 | CP.PCM.PN ---
Subjective - Date & Time of Evaluation Date of Evaluation: 03/20/17 Time of Evaluation: 08:00 - Subjective Subjective: feels Better , chest tube just been removed. Objective - Vital Signs/Intake and Output Vital Signs (last 24 hours): Temp Pulse Resp BP Pulse Ox 99 F 98 H 30 H 110/71 98 03/20/17 12:00 03/20/17 13:00 03/20/17 13:00 03/20/17 12:00 03/20/17 13:00 Intake and Output: 03/20/17 03/20/17 06:59 18:59 Intake Total 1054 250 Output Total 300 Balance 754 250 - Medications Medications: Current Medications Acetaminophen (Tylenol 325mg Tab) 650 mg PO Q4H PRN PRN Reason: Fever >100.4 F Last Admin: 03/17/17 06:40 Dose: 650 mg Albuterol/Ipratropium (Duoneb 3 Mg/0.5 Mg (3 Ml) Ud) 3 ml IH Q2H PRN PRN Reason: Shortness of Breath Carvedilol (Coreg) 3.125 mg PO BID [facility] Last Admin: 03/20/17 09:05 Dose: 3.125 mg Digoxin (Lanoxin) 0.25 mg PO 1400 [facility] Last Admin: 03/19/17 13:15 Dose: 0.25 mg Furosemide (Lasix) 40 mg IV 0800,1400 [facility] Last Admin: 03/20/17 09:03 Dose: 40 mg Milrinone Lactate/Dextrose (Primacor 20mg/100ml D5w) 100 mls @ 7.103 mls/hr IV .Q14H5M PRN; Protocol; 0.2 MCG/KG/MIN PRN Reason: TITRATE PER MD ORDER Last Admin: 03/20/17 05:26 Dose: 0.2 mcg/kg/min, 7.103 mls/hr Doxycycline Hyclate 100 mg/ (Sodium Chloride) 100 mls @ 100 mls/hr IVPB Q12 [facility] PRN Reason: Protocol Last Admin: 03/20/17 09:03 Dose: 100 mls/hr Meropenem 1g/NS 100mL IVPB (Meropenem 1g/Ns 100ml Ivpb) 1 gm in 100 mls @ 100 mls/hr IVPB Q8 [facility] PRN Reason: Protocol Stop: 03/24/17 06:01 Last Admin: 03/20/17 05:23 Dose: 100 mls/hr Heparin Sodium/Dextrose (Heparin 25,000 Units/250ml In D5w) 25,000 units in 250 mls @ 10.124 mls/hr IV .Q24H PRN; Protocol; 9 UNITS/KG/HR PRN Reason: ADJUST RATE PER PROTOCOL Last Admin: 03/20/17 13:34 Dose: 9 units/kg/hr, 10.124 mls/hr Insulin Detemir (Levemir) 10 unit SC HS [facility] Last Admin: 03/19/17 22:21 Dose: 10 unit Insulin Human Lispro (Humalog High) 0 units SC ACHS [facility] PRN Reason: Protocol Last Admin: 03/20/17 09:06 Dose: 2 units Lisinopril (Zestril) 2.5 mg PO DAILY [facility] Last Admin: 03/20/17 09:05 Dose: 2.5 mg Morphine Sulfate (Morphine) 4 mg IVP Q4H PRN PRN Reason: Pain, moderate (4-7) Last Admin: 03/20/17 07:48 Dose: 4 mg Ondansetron HCl (Zofran Inj) 4 mg IVP Q6H PRN PRN Reason: Nausea/Vomiting Pantoprazole Sodium (Protonix Ec Tab) 40 mg PO 0600,1630 [facility] Last Admin: 03/20/17 05:25 Dose: 40 mg Potassium Chloride (K-Dur 20 Meq Er Tab) 20 meq PO BRK [facility] Last Admin: 03/20/17 09:06 Dose: 20 meq Spironolactone (Aldactone) 25 mg PO BID [facility] Last Admin: 03/20/17 09:05 Dose: 25 mg Verapamil HCl (Calan Tab) 40 mg PO TID [facility] Last Admin: 03/20/17 09:05 Dose: 40 mg - Labs Labs: 03/20/17 05:20 03/20/17 05:20 PT 28.6 Seconds (9.9-11.8) H 03/17/17 10:40 INR 2.65 (0.93-1.08) H 03/17/17 10:40 APTT 64.6 Seconds (23.7-30.8) H 03/20/17 05:20 - Constitutional Appears: Non-toxic - Head Exam Head Exam: ATRAUMATIC - Eye Exam Eye Exam: Conjunctival injection - ENT Exam ENT Exam: Mucous Membranes Dry - Neck Exam Neck Exam: Full ROM - Respiratory Exam Respiratory Exam: Clear to Ausculation Bilateral Additional comments: Except decrease air entry at bases - Cardiovascular Exam Cardiovascular Exam: REGULAR RHYTHM Assessment and Plan - Assessment and Plan (Free Text) Assessment: 46 year old female with 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 off b/c of too tight and was causing skin injury and break down. S/p removal of chest tube Plan: continue Primacor, Continue heparin start low dose coumadin continue EITAN, Dig, diuretic. spironolactoe F/U chest Xray. F/u LAb.
[2017-03-20] MEDS: Insulin Detemir 100 units/ml Vial (Levemir) SC SCH (22:17)
[2017-03-21] MEDS: Meropenem 1g/NS 100mL IVPB 1 GM/100 ML PIGGYBACK IVPB SCH (05:39)
[2017-03-21] MEDS: Pantoprazole 40 mg EC Tab PO SCH ×2 (05:50→16:50)
[2017-03-21 06:07] LABS: ALB/GLOB RATIO 0.9 (1.1-1.8); ALBUMIN 3.1 g/dL (3.0-4.8); ALT/SGPT 33 U/L (7-56); AST/SGOT 55 U/L (15-39); BLOOD UREA NITROGEN 11 mg/dL (7-21); CALCIUM 9.4 mg/dL (8.4-10.5); GFR AFRICAN-AMERICAN > 60; GFR NON-AFRICAN AMERICAN > 60
[2017-03-21 06:12] LABS: BASO # 0.05 K/mm3 (0.0-2.0); BASO % 0.3 % (0.0-3.0); EOS # 0.4 (0.0-0.7); EOS % 2.1 % (1.5-5.0); GRAN # 10.57 (1.4-6.5); HEMOGLOBIN 9.9 gm/dL (12.0-16.0); LYMPH # 4.8 (1.2-3.4); LYMPH % 27.9 % (22.0-35.0); MEAN CELL VOLUME 76.5 fL (80.0-105.0); MEAN CORPUSCULAR HEMOGLOBIN 24.3 pg (25.0-35.0); MEAN CORPUSCULAR HGB CONC 31.7 g/dl (31.0-37.0); MEAN PLATELET VOLUME 8.7 fl (7.0-11.0); MONO # 1.3 (0.1-0.6); MONO % 7.7 % (1.0-6.0); PLATELET COUNT 543 10^3/uL (120.0-450.0); RBC 4.08 10^6/uL (3.5-6.1); RED CELL DISTRIBUTION WIDTH 17.3 % (11.5-14.5); WHITE BLOOD COUNT 17.1 10^3/ul (4.5-11.0)
[2017-03-21 06:43] LABS: INR 2.79 (0.93-1.08); PROTHROMBIN TIME 30.1 Seconds (9.9-11.8)
[2017-03-21 06:49] LABS: PARTIAL THROMBOPLASTIN TIME 78.1 Seconds (23.7-30.8)
[2017-03-21] MEDS: Potassium Chloride 20 mEq ER Tab PO SCH (07:50)
--- NOTE | 2017-03-21 07:56 | CP.PCM.PN ---
Subjective - Date & Time of Evaluation Date of Evaluation: 03/21/17 Time of Evaluation: 07:53 - Subjective Subjective: General Surgery Resident: Abdullahi Attending: Nixon HPI: Pt seen and examined at bedside. Complains of mild itchiness in RLQ at heparin injection site.Tolerating diet. No other complaints at this time. +BM/+ Flatus. Denies N/V/F/CP/SOB. Objective - Vital Signs/Intake and Output Vital Signs (last 24 hours): Temp Pulse Resp BP Pulse Ox 98.2 F 98 H 19 136/72 97 03/21/17 04:00 03/21/17 06:00 03/21/17 06:00 03/21/17 04:00 03/20/17 16:00 Intake and Output: 03/21/17 03/21/17 06:59 18:59 Intake Total 666 Balance 666 - Medications Medications: Current Medications Acetaminophen (Tylenol 325mg Tab) 650 mg PO Q4H PRN PRN Reason: Fever >100.4 F Last Admin: 03/17/17 06:40 Dose: 650 mg Albuterol/Ipratropium (Duoneb 3 Mg/0.5 Mg (3 Ml) Ud) 3 ml IH Q2H PRN PRN Reason: Shortness of Breath Carvedilol (Coreg) 3.125 mg PO BID [facility] Last Admin: 03/20/17 17:08 Dose: 3.125 mg Digoxin (Lanoxin) 0.25 mg PO 1400 [facility] Last Admin: 03/20/17 13:49 Dose: 0.25 mg Furosemide (Lasix) 40 mg IV 0800,1400 [facility] Last Admin: 03/20/17 13:48 Dose: 40 mg Milrinone Lactate/Dextrose (Primacor 20mg/100ml D5w) 100 mls @ 7.103 mls/hr IV .Q14H5M PRN; Protocol; 0.2 MCG/KG/MIN PRN Reason: TITRATE PER MD ORDER Last Admin: 03/20/17 19:41 Dose: 0.2 mcg/kg/min, 7.103 mls/hr Doxycycline Hyclate 100 mg/ (Sodium Chloride) 100 mls @ 100 mls/hr IVPB Q12 [facility] PRN Reason: Protocol Last Admin: 03/20/17 21:52 Dose: 100 mls/hr Meropenem 1g/NS 100mL IVPB (Meropenem 1g/Ns 100ml Ivpb) 1 gm in 100 mls @ 100 mls/hr IVPB Q8 [facility] PRN Reason: Protocol Stop: 03/24/17 06:01 Last Admin: 03/21/17 05:39 Dose: 100 mls/hr Heparin Sodium/Dextrose (Heparin 25,000 Units/250ml In D5w) 25,000 units in 250 mls @ 10.124 mls/hr IV .Q24H PRN; Protocol; 9 UNITS/KG/HR PRN Reason: ADJUST RATE PER PROTOCOL Last Admin: 03/20/17 13:34 Dose: 9 units/kg/hr, 10.124 mls/hr Insulin Detemir (Levemir) 10 unit SC HS [facility] Last Admin: 03/20/17 22:17 Dose: 10 unit Insulin Human Lispro (Humalog High) 0 units SC ACHS [facility] PRN Reason: Protocol Last Admin: 03/20/17 22:00 Dose: Not Given Lisinopril (Zestril) 2.5 mg PO DAILY [facility] Last Admin: 03/20/17 09:05 Dose: 2.5 mg Morphine Sulfate (Morphine) 4 mg IVP Q4H PRN PRN Reason: Pain, moderate (4-7) Last Admin: 03/21/17 00:00 Dose: 4 mg Ondansetron HCl (Zofran Inj) 4 mg IVP Q6H PRN PRN Reason: Nausea/Vomiting Pantoprazole Sodium (Protonix Ec Tab) 40 mg PO 0600,1630 [facility] Last Admin: 03/21/17 05:50 Dose: 40 mg Potassium Chloride (K-Dur 20 Meq Er Tab) 20 meq PO BRK [facility] Last Admin: 03/20/17 09:06 Dose: 20 meq Spironolactone (Aldactone) 25 mg PO BID [facility] Last Admin: 03/20/17 17:10 Dose: 25 mg Verapamil HCl (Calan Tab) 40 mg PO TID [facility] Last Admin: 03/20/17 17:10 Dose: 40 mg Warfarin Sodium (Coumadin) 10 mg PO 1800 [facility] PRN Reason: Protocol Stop: 03/22/17 23:59 Last Admin: 03/20/17 17:10 Dose: 10 mg Warfarin Sodium (Coumadin) 7.5 mg PO 1800 [facility] PRN Reason: Protocol - Labs Labs: 03/21/17 05:20 03/21/17 05:20 PT 30.1 Seconds (9.9-11.8) H* 03/21/17 05:20 INR 2.79 (0.93-1.08) H 03/21/17 05:20 APTT 78.1 Seconds (23.7-30.8) H* 03/21/17 05:20 - Constitutional Appears: Non-toxic - Head Exam Head Exam: ATRAUMATIC - Eye Exam Eye Exam: EOMI - ENT Exam ENT Exam: Mucous Membranes Moist - Respiratory Exam Respiratory Exam: Rhonchi (RLL) - Cardiovascular Exam Cardiovascular Exam: REGULAR RHYTHM - GI/Abdominal Exam GI & Abdominal Exam: Normal Bowel Sounds Additional comments: dressing c/d/i R. Side over previous chest tube incision Assessment and Plan - Assessment and Plan (Free Text) Assessment: 46 y/o AA Female s/p chest tube for hemothorax Poss PNA Plan: * change dressing tomorrow * IS 10x/hr * OOB * medical management per ICU Armando CHRISTINE PGY-1
[2017-03-21] MEDS: Insulin Lispro (HUMAlog) HIGH Coverage SC SCH ×4 (08:00→22:30)
--- NOTE | 2017-03-21 08:36 | RAD ---
HISTORY: s/p CT to water seal COMPARISON: 03/20/2017 FINDINGS: LUNGS: No active pulmonary disease. PLEURA: There is a slight increase in the size of the right pleural effusion which layers along the major fissure. No pneumothorax CARDIOVASCULAR: Normal. OSSEOUS STRUCTURES: No significant abnormalities. VISUALIZED UPPER ABDOMEN: Normal. OTHER FINDINGS: None. IMPRESSION: There is a slight increase in the size of the right pleural effusion which layers along the major fissure. No pneumothorax
[2017-03-21] MEDS: Milrinone 20mg/100ml D5W 100 ML IV PRN ×2 (08:37→21:44)
--- NOTE | 2017-03-21 10:42 | CP.PCM.PN ---
Subjective - Date & Time of Evaluation Date of Evaluation: 03/21/17 Time of Evaluation: 09:20 - Subjective Subjective: Patient is feeling better, no fevers overnight, breathing well, not in distress. Objective - Vital Signs/Intake and Output Vital Signs (last 24 hours): Temp Pulse Resp BP Pulse Ox 98.2 F 98 H 19 136/72 97 03/21/17 04:00 03/21/17 06:00 03/21/17 06:00 03/21/17 04:00 03/20/17 16:00 Intake and Output: 03/20/17 03/21/17 18:59 06:59 Intake Total 1150 666 Output Total 3040 Balance -1890 666 - Medications Medications: Current Medications Acetaminophen (Tylenol 325mg Tab) 650 mg PO Q4H PRN PRN Reason: Fever >100.4 F Last Admin: 03/17/17 06:40 Dose: 650 mg Albuterol/Ipratropium (Duoneb 3 Mg/0.5 Mg (3 Ml) Ud) 3 ml IH Q2H PRN PRN Reason: Shortness of Breath Carvedilol (Coreg) 3.125 mg PO BID [facility] Last Admin: 03/20/17 17:08 Dose: 3.125 mg Digoxin (Lanoxin) 0.25 mg PO 1400 [facility] Last Admin: 03/20/17 13:49 Dose: 0.25 mg Furosemide (Lasix) 40 mg IV 0800,1400 [facility] Last Admin: 03/20/17 13:48 Dose: 40 mg Milrinone Lactate/Dextrose (Primacor 20mg/100ml D5w) 100 mls @ 7.103 mls/hr IV .Q14H5M PRN; Protocol; 0.2 MCG/KG/MIN PRN Reason: TITRATE PER MD ORDER Last Admin: 03/20/17 19:41 Dose: 0.2 mcg/kg/min, 7.103 mls/hr Doxycycline Hyclate 100 mg/ (Sodium Chloride) 100 mls @ 100 mls/hr IVPB Q12 [facility] PRN Reason: Protocol Last Admin: 03/20/17 21:52 Dose: 100 mls/hr Meropenem 1g/NS 100mL IVPB (Meropenem 1g/Ns 100ml Ivpb) 1 gm in 100 mls @ 100 mls/hr IVPB Q8 [facility] PRN Reason: Protocol Stop: 03/24/17 06:01 Last Admin: 03/21/17 05:39 Dose: 100 mls/hr Heparin Sodium/Dextrose (Heparin 25,000 Units/250ml In D5w) 25,000 units in 250 mls @ 10.124 mls/hr IV .Q24H PRN; Protocol; 9 UNITS/KG/HR PRN Reason: ADJUST RATE PER PROTOCOL Last Admin: 03/20/17 13:34 Dose: 9 units/kg/hr, 10.124 mls/hr Insulin Detemir (Levemir) 10 unit SC HS [facility] Last Admin: 03/20/17 22:17 Dose: 10 unit Insulin Human Lispro (Humalog High) 0 units SC ACHS [facility] PRN Reason: Protocol Last Admin: 03/20/17 22:00 Dose: Not Given Lisinopril (Zestril) 2.5 mg PO DAILY [facility] Last Admin: 03/20/17 09:05 Dose: 2.5 mg Morphine Sulfate (Morphine) 4 mg IVP Q4H PRN PRN Reason: Pain, moderate (4-7) Last Admin: 03/21/17 00:00 Dose: 4 mg Ondansetron HCl (Zofran Inj) 4 mg IVP Q6H PRN PRN Reason: Nausea/Vomiting Pantoprazole Sodium (Protonix Ec Tab) 40 mg PO 0600,1630 [facility] Last Admin: 03/21/17 05:50 Dose: 40 mg Potassium Chloride (K-Dur 20 Meq Er Tab) 20 meq PO BRK [facility] Last Admin: 03/20/17 09:06 Dose: 20 meq Spironolactone (Aldactone) 25 mg PO BID [facility] Last Admin: 03/20/17 17:10 Dose: 25 mg Verapamil HCl (Calan Tab) 40 mg PO TID [facility] Last Admin: 03/20/17 17:10 Dose: 40 mg Warfarin Sodium (Coumadin) 10 mg PO 1800 [facility] PRN Reason: Protocol Stop: 03/22/17 23:59 Last Admin: 03/20/17 17:10 Dose: 10 mg Warfarin Sodium (Coumadin) 7.5 mg PO 1800 [facility] PRN Reason: Protocol - Labs Labs: 03/21/17 05:20 03/20/17 05:20 PT 28.6 Seconds (9.9-11.8) H 03/17/17 10:40 INR 2.65 (0.93-1.08) H 03/17/17 10:40 APTT 64.6 Seconds (23.7-30.8) H 03/20/17 05:20 - Constitutional Appears: Non-toxic, No Acute Distress - Head Exam Head Exam: NORMAL INSPECTION - Neck Exam Neck Exam: absent: Meningismus - Respiratory Exam Respiratory Exam: Decreased Breath Sounds - Cardiovascular Exam Cardiovascular Exam: +S1, +S2 - GI/Abdominal Exam GI & Abdominal Exam: Soft. absent: Tenderness Assessment and Plan - Assessment and Plan (Free Text) Plan: Assessment Systemic Inflammatory Response Syndrome, consider due to right sided pleural effusion, etiology to be determined, consider right sided healthcare-associated pneumonia S/P chest tube placement POD #6 and now removed systemic lupus erythematosus morbid obesity with BMI 41 DM asthma history of migraine headaches history of spinal stenosis history of ectopic Plan on Doxycycline and Merrem (day 7) - will d/c antibiotics today and monitor
--- NOTE | 2017-03-21 11:04 | CP.PCM.PN ---
Subjective - Date & Time of Evaluation Date of Evaluation: 03/21/17 Time of Evaluation: 07:00 - Subjective Subjective: feels ok Objective - Vital Signs/Intake and Output Vital Signs (last 24 hours): Temp Pulse Resp BP Pulse Ox 98.2 F 123 H 35 H 130/86 97 03/21/17 04:00 03/21/17 09:08 03/21/17 08:30 03/21/17 09:08 03/20/17 16:00 Intake and Output: 03/21/17 03/21/17 06:59 18:59 Intake Total 666 100 Balance 666 100 - Medications Medications: Current Medications Acetaminophen (Tylenol 325mg Tab) 650 mg PO Q4H PRN PRN Reason: Fever >100.4 F Last Admin: 03/17/17 06:40 Dose: 650 mg Albuterol/Ipratropium (Duoneb 3 Mg/0.5 Mg (3 Ml) Ud) 3 ml IH Q2H PRN PRN Reason: Shortness of Breath Carvedilol (Coreg) 3.125 mg PO BID [facility] Last Admin: 03/21/17 09:08 Dose: 3.125 mg Digoxin (Lanoxin) 0.25 mg PO 1400 [facility] Last Admin: 03/20/17 13:49 Dose: 0.25 mg Furosemide (Lasix) 40 mg IV 0800,1400 [facility] Last Admin: 03/21/17 07:50 Dose: 40 mg Milrinone Lactate/Dextrose (Primacor 20mg/100ml D5w) 100 mls @ 7.103 mls/hr IV .Q14H5M PRN; Protocol; 0.2 MCG/KG/MIN PRN Reason: TITRATE PER MD ORDER Last Admin: 03/21/17 08:37 Dose: 0.2 mcg/kg/min, 7.103 mls/hr Heparin Sodium/Dextrose (Heparin 25,000 Units/250ml In D5w) 25,000 units in 250 mls @ 10.124 mls/hr IV .Q24H PRN; Protocol; 9 UNITS/KG/HR PRN Reason: ADJUST RATE PER PROTOCOL Last Admin: 03/20/17 13:34 Dose: 9 units/kg/hr, 10.124 mls/hr Insulin Detemir (Levemir) 10 unit SC [facility] Last Admin: 03/20/17 22:17 Dose: 10 unit Insulin Human Lispro (Humalog High) 0 units SC ACHS [facility] PRN Reason: Protocol Last Admin: 03/21/17 08:00 Dose: 2 units Lisinopril (Zestril) 2.5 mg PO DAILY [facility] Last Admin: 03/21/17 09:06 Dose: 2.5 mg Morphine Sulfate (Morphine) 4 mg IVP Q4H PRN PRN Reason: Pain, moderate (4-7) Last Admin: 03/21/17 00:00 Dose: 4 mg Ondansetron HCl (Zofran Inj) 4 mg IVP Q6H PRN PRN Reason: Nausea/Vomiting Pantoprazole Sodium (Protonix Ec Tab) 40 mg PO 0600,1630 [facility] Last Admin: 03/21/17 05:50 Dose: 40 mg Potassium Chloride (K-Dur 20 Meq Er Tab) 20 meq PO BRK [facility] Last Admin: 03/21/17 07:50 Dose: 20 meq Spironolactone (Aldactone) 25 mg PO BID [facility] Last Admin: 03/21/17 09:07 Dose: 25 mg Verapamil HCl (Calan Tab) 40 mg PO TID [facility] Last Admin: 03/21/17 09:07 Dose: 40 mg Warfarin Sodium (Coumadin) 10 mg PO 1800 [facility] PRN Reason: Protocol Stop: 03/22/17 23:59 Last Admin: 03/20/17 17:10 Dose: 10 mg Warfarin Sodium (Coumadin) 7.5 mg PO 1800 [facility] PRN Reason: Protocol - Labs Labs: 03/21/17 05:20 03/21/17 05:20 PT 30.1 Seconds (9.9-11.8) H* 03/21/17 05:20 INR 2.79 (0.93-1.08) H 03/21/17 05:20 APTT 78.1 Seconds (23.7-30.8) H* 03/21/17 05:20 - Constitutional Appears: Non-toxic - Head Exam Head Exam: ATRAUMATIC - Eye Exam Eye Exam: Conjunctival injection - ENT Exam ENT Exam: Mucous Membranes Dry - Neck Exam Neck Exam: Full ROM - Respiratory Exam Respiratory Exam: Clear to Ausculation Bilateral - Cardiovascular Exam Cardiovascular Exam: REGULAR RHYTHM Assessment and Plan - Assessment and Plan (Free Text) Assessment: S/p large right pl effusion s/p chest tube S/p removal of chest tube Hx of SLE morbid obesity CMP non ischemic CMP s/p cath Nobn obst CAD Recent MUHA EF-37% one dose of coumadin therapeutic INR ?? R/o True Vs lab error Plan: STAT PT/INR/PTT iftherapeytic will Dc heparin and hold coumadin to prevent overshoot DC primacor repaet Cxr for Up pl effusion post chest tube continue Dig, EITAN, Coreg. Spironolactone Pt was on enteresto Once about to Dc home will Dc lisinopril and pt will start enteresto at Home (Enetrest is non formularyin [facility]) upon dc pt will F?u PMD card Dr. Tushar Catherine, who gave life vest and needs reassess Lv Fx for Need of AICD, explained above to pt. awaitng repeat PT/INR for coumadin and heparin continution further.
[2017-03-21 12:30] LABS: INR 3.32 (0.93-1.08); PROTHROMBIN TIME 35.9 Seconds (9.9-11.8)
[2017-03-21 12:36] LABS: PARTIAL THROMBOPLASTIN TIME 88.5 Seconds (23.7-30.8)
[2017-03-21] MEDS: Morphine 4 mg/ml ISec IVP PRN ×2 (12:47)
--- NOTE | 2017-03-21 13:06 | CP.PCM.PN ---
<ТАТЬЯНА METCALF - Last Filed: 03/21/17 13:03> Subjective - Date & Time of Evaluation Date of Evaluation: 03/21/17 Time of Evaluation: 09:00 - Subjective Subjective: Medicine Progress Note: Pt was seen and examined at bedside. Pt denies any acute overnight events. Day 2 s/p chest tube removal. Pt states that dyspnea is improving. Pt states that she is OOB to chair and ambulating within room. Pt tolerates diet well. Pt denies n/v/f, CP, SOB, SANTOS, or abdominal pain. Objective - Vital Signs/Intake and Output Vital Signs (last 24 hours): Temp Pulse Resp BP Pulse Ox 98.9 F 110 H 27 H 130/86 97 03/21/17 12:00 03/21/17 12:15 03/21/17 12:15 03/21/17 09:08 03/20/17 16:00 Intake and Output: 03/21/17 03/21/17 06:59 18:59 Intake Total 666 100 Balance 666 100 - Medications Medications: Current Medications Acetaminophen (Tylenol 325mg Tab) 650 mg PO Q4H PRN PRN Reason: Fever >100.4 F Last Admin: 03/17/17 06:40 Dose: 650 mg Albuterol/Ipratropium (Duoneb 3 Mg/0.5 Mg (3 Ml) Ud) 3 ml IH Q2H PRN PRN Reason: Shortness of Breath Carvedilol (Coreg) 3.125 mg PO BID [facility] Last Admin: 03/21/17 09:08 Dose: 3.125 mg Digoxin (Lanoxin) 0.25 mg PO 1400 [facility] Last Admin: 03/20/17 13:49 Dose: 0.25 mg Furosemide (Lasix) 40 mg IV 0800,1400 [facility] Last Admin: 03/21/17 07:50 Dose: 40 mg Milrinone Lactate/Dextrose (Primacor 20mg/100ml D5w) 100 mls @ 7.103 mls/hr IV .Q14H5M PRN; Protocol; 0.2 MCG/KG/MIN PRN Reason: TITRATE PER MD ORDER Last Admin: 03/21/17 08:37 Dose: 0.2 mcg/kg/min, 7.103 mls/hr Heparin Sodium/Dextrose (Heparin 25,000 Units/250ml In D5w) 25,000 units in 250 mls @ 10.124 mls/hr IV .Q24H PRN; Protocol; 9 UNITS/KG/HR PRN Reason: ADJUST RATE PER PROTOCOL Last Admin: 03/20/17 13:34 Dose: 9 units/kg/hr, 10.124 mls/hr Insulin Detemir (Levemir) 10 unit SC HS [facility] Last Admin: 03/20/17 22:17 Dose: 10 unit Insulin Human Lispro (Humalog High) 0 units SC ACHS [facility] PRN Reason: Protocol Last Admin: 03/21/17 12:47 Dose: 7 units Lisinopril (Zestril) 2.5 mg PO DAILY [facility] Last Admin: 03/21/17 09:06 Dose: 2.5 mg Morphine Sulfate (Morphine) 4 mg IVP Q4H PRN PRN Reason: Pain, moderate (4-7) Last Admin: 03/21/17 12:47 Dose: 4 mg Ondansetron HCl (Zofran Inj) 4 mg IVP Q6H PRN PRN Reason: Nausea/Vomiting Pantoprazole Sodium (Protonix Ec Tab) 40 mg PO 0600,1630 [facility] Last Admin: 03/21/17 05:50 Dose: 40 mg Potassium Chloride (K-Dur 20 Meq Er Tab) 20 meq PO BRK [facility] Last Admin: 03/21/17 07:50 Dose: 20 meq Spironolactone (Aldactone) 25 mg PO BID [facility] Last Admin: 03/21/17 09:07 Dose: 25 mg Verapamil HCl (Calan Tab) 40 mg PO TID [facility] Last Admin: 03/21/17 09:07 Dose: 40 mg Warfarin Sodium (Coumadin) 7.5 mg PO 1800 [facility] PRN Reason: Protocol - Labs Labs: 03/21/17 05:20 03/21/17 05:20 PT 35.9 Seconds (9.9-11.8) H* 03/21/17 11:45 INR 3.32 (0.93-1.08) H 03/21/17 11:45 APTT 88.5 Seconds (23.7-30.8) H* 03/21/17 11:45 - Head Exam Head Exam: ATRAUMATIC, NORMOCEPHALIC - Eye Exam Eye Exam: EOMI, PERRL - ENT Exam ENT Exam: Mucous Membranes Moist - Neck Exam Neck Exam: Full ROM - Respiratory Exam Respiratory Exam: Clear to Ausculation Bilateral. absent: Rales, Rhonchi, Wheezes - Cardiovascular Exam Cardiovascular Exam: RRR, +S1, +S2. absent: Gallop, Rubs, Murmur - GI/Abdominal Exam GI & Abdominal Exam: Soft. absent: Distended, Guarding, Tenderness - Extremities Exam Extremities Exam: Full ROM. absent: Calf Tenderness, Joint Swelling - Neurological Exam Neurological Exam: Alert, Awake, Oriented x3 - Skin Skin Exam: Dry, Intact, Normal Color, Warm Assessment and Plan - Assessment and Plan (Free Text) Assessment: Patient is a 46 yo with severe dilated cardiomyopathy with severe LV systolic dysfunction admitted to the ICU for evaluation and treatment of acute respiratory distress, anemia, and a supratherapeutic INR 1. Acute respiratory distress 2/2 Empyema vs. Hemothorax vs pna -Chest tube removed by surgery - dressing change tomorrow, encourage incentive spirometry -CXR x2 shows no pneumothorax -ID consult - on doxycycline and merrem (day 7) will d/c today and monitor -CT chest: significant dec in size of pleural effusion , reexpansion of RU lung , partial expansion of R middle and RL lung. -F/u pleural fluid cultures, blood cx x 2 negative -Cont. Duoneb prn -PT consulted 2. Dilated cardiomyopathy with severe LV systolic dysfunction -Consulted cardiology - Low dose coumadin, cont heparin -Cont Milrinone, Lisinopril, Carvedilol, digoxin, verapamil, Aldactone -MUGA scan: mod LV dysfunction w difusse hypokinessi LVEF 37% -Heparin ggt - pmh of LV thrombus -Echo revealed no LV thrombus, EF 15% with dilated and severe systolic dys -Monitor INR 3. Hypokalemia - K 3.9, repleted with KCl PO - cont to monitor via BMP 4. Left leg pain -Extremity US negative for DVT -Morphine 4q4 prn 5. Insulin dependent diabetes mellitus -Levemir 10 units -Humalog ISS as protocol 6. GI/DVT PPx -Protonix -Lovenox 7. Protein C Deficiency -HemeOnc on board -these results may be inaccurate given testing done while on coumadin -check Factor V Leiden and prothrombin gene mutation Patient and plan was seen and discussed in detail with Dr. Haines. <Hernandez Haines - Last Filed: 03/21/17 16:15> Objective - Vital Signs/Intake and Output Vital Signs (last 24 hours): Temp Pulse Resp BP Pulse Ox 98.9 F 101 H 31 H 107/64 97 03/21/17 12:00 03/21/17 14:11 03/21/17 14:00 03/21/17 14:11 03/20/17 16:00 Intake and Output: 03/21/17 03/21/17 06:59 18:59 Intake Total 666 100 Balance 666 100 - Medications Medications: Current Medications Acetaminophen (Tylenol 325mg Tab) 650 mg PO Q4H PRN PRN Reason: Fever >100.4 F Last Admin: 03/17/17 06:40 Dose: 650 mg Albuterol/Ipratropium (Duoneb 3 Mg/0.5 Mg (3 Ml) Ud) 3 ml IH Q2H PRN PRN Reason: Shortness of Breath Carvedilol (Coreg) 3.125 mg PO BID [facility] Last Admin: 03/21/17 09:08 Dose: 3.125 mg Digoxin (Lanoxin) 0.25 mg PO 1400 [facility] Last Admin: 03/21/17 14:11 Dose: 0.25 mg Furosemide (Lasix) 40 mg IV 0800,1400 [facility] Last Admin: 03/21/17 14:09 Dose: 40 mg Milrinone Lactate/Dextrose (Primacor 20mg/100ml D5w) 100 mls @ 7.103 mls/hr IV .Q14H5M PRN; Protocol; 0.2 MCG/KG/MIN PRN Reason: TITRATE PER MD ORDER Last Admin: 03/21/17 08:37 Dose: 0.2 mcg/kg/min, 7.103 mls/hr Heparin Sodium/Dextrose (Heparin 25,000 Units/250ml In D5w) 25,000 units in 250 mls @ 10.124 mls/hr IV .Q24H PRN; Protocol; 9 UNITS/KG/HR PRN Reason: ADJUST RATE PER PROTOCOL Last Admin: 03/20/17 13:34 Dose: 9 units/kg/hr, 10.124 mls/hr Insulin Detemir (Levemir) [address] [facility] Last Admin: 03/20/17 22:17 Dose: 10 unit Insulin Human Lispro (Humalog High) 0 units SC ACHS [facility] PRN Reason: Protocol Last Admin: 03/21/17 12:47 Dose: 7 units Lisinopril (Zestril) 2.5 mg PO DAILY [facility] Last Admin: 03/21/17 09:06 Dose: 2.5 mg Morphine Sulfate (Morphine) 4 mg IVP Q4H PRN PRN Reason: Pain, moderate (4-7) Last Admin: 03/21/17 12:47 Dose: 4 mg Ondansetron HCl (Zofran Inj) 4 mg IVP Q6H PRN PRN Reason: Nausea/Vomiting Pantoprazole Sodium (Protonix Ec Tab) 40 mg PO 0600,1630 [facility] Last Admin: 03/21/17 05:50 Dose: 40 mg Potassium Chloride (K-Dur 20 Meq Er Tab) 20 meq PO BRK [facility] Last Admin: 03/21/17 07:50 Dose: 20 meq Spironolactone (Aldactone) 25 mg PO BID [facility] Last Admin: 03/21/17 09:07 Dose: 25 mg Verapamil HCl (Calan Tab) 40 mg PO TID [facility] Last Admin: 03/21/17 14:11 Dose: 40 mg Warfarin Sodium (Coumadin) 7.5 mg PO 1800 [facility] PRN Reason: Protocol - Labs Labs: 03/21/17 05:20 03/21/17 05:20 PT 35.9 Seconds (9.9-11.8) H* 03/21/17 11:45 INR 3.32 (0.93-1.08) H 03/21/17 11:45 APTT 88.5 Seconds (23.7-30.8) H* 03/21/17 11:45 Attending/Attestation - Attestation I have personally seen and examined this patient.: Yes I have fully participated in the care of the patient.: Yes I have reviewed all pertinent clinical information, including history, physical exam and plan: Yes Notes (Text): 03/21/17 16:06 Attending note; Patient seen and examined with resident. Patient is a 46 year old female with past medical history of cardiac thrombus, dilated cardiomyopathy and diabetes who presented with sepsis and respiratory distress. She was found to have large right pleural effusion and supratherapeutic INR. She was seen by surgery and chest tube was placed. She was started on iv antibiotics. Her symptoms have improved and her chest tube was removed. Anti-biotics stopped. Repeat echocardiogram was reviewed; no cardiac thrombus was seen. She is on heparin drip for anticoagulation and started on coumadin. Cardiology evaluation with appreciated. She is on primacor, lasix, coreg, digoxin, lisinopril, aldactone and verapamil. She is on levemir and insulin ss for diabetes. Needs to follow up with hematology Dr. Garcia for inherited hypercoagulable workup/ To determine the duration of anticoagulation. PT evaluation appreciated. Out of bed to chair as tolerated. Transfer out of ICU. Upon discharge patient will follow-up with PMD Dr. Ben Yee and cardiology DR. Lofton.
[2017-03-21] MEDS: Digoxin 250 mcg (0.25 mg) Tab PO SCH (14:11)
[2017-03-21] MEDS: Insulin Detemir 100 units/ml Vial (Levemir) SC SCH (22:31)
[2017-03-22] MEDS: Pantoprazole 40 mg EC Tab PO SCH ×2 (05:35→18:10)
[2017-03-22 07:28] LABS: BASO # 0.05 K/mm3 (0.0-2.0); BASO % 0.3 % (0.0-3.0); EOS # 0.3 (0.0-0.7); GRAN # 11.29 (1.4-6.5); HEMOGLOBIN 9.6 gm/dL (12.0-16.0); LYMPH # 3.4 (1.2-3.4); LYMPH % 20.9 % (22.0-35.0); MEAN CELL VOLUME 76.6 fL (80.0-105.0); MEAN CORPUSCULAR HEMOGLOBIN 24.1 pg (25.0-35.0); MEAN CORPUSCULAR HGB CONC 31.5 g/dl (31.0-37.0); MEAN PLATELET VOLUME 8.6 fl (7.0-11.0); MONO # 1.3 (0.1-0.6); MONO % 7.8 % (1.0-6.0); PLATELET COUNT 521 10^3/uL (120.0-450.0); RBC 3.98 10^6/uL (3.5-6.1); RED CELL DISTRIBUTION WIDTH 17.2 % (11.5-14.5); WHITE BLOOD COUNT 16.4 10^3/ul (4.5-11.0)
[2017-03-22 07:35] LABS: INR 3.23 (0.93-1.08); PROTHROMBIN TIME 34.9 Seconds (9.9-11.8)
[2017-03-22 07:46] LABS: ALB/GLOB RATIO 0.9 (1.1-1.8); ALBUMIN 3.2 g/dL (3.0-4.8); ALT/SGPT 32 U/L (7-56); AST/SGOT 52 U/L (15-39); BLOOD UREA NITROGEN 12 mg/dL (7-21); CALCIUM 9.3 mg/dL (8.4-10.5); GFR AFRICAN-AMERICAN > 60; GFR NON-AFRICAN AMERICAN > 60
--- NOTE | 2017-03-22 08:08 | CP.PCM.PN ---
Subjective - Date & Time of Evaluation Date of Evaluation: 03/22/17 Time of Evaluation: 08:04 - Subjective Subjective: General Surgery Progress Note: Resident: Abdullahi Attending: Nixon HPI: Patient seen and examined at bedside. No complaints at this time. +Flatus/ BM. Rocio diet. Denies N/V/D/CP/SOB/F. Objective - Vital Signs/Intake and Output Vital Signs (last 24 hours): Temp Pulse Resp BP Pulse Ox 98.4 F 98 H 20 95/52 L 96 03/22/17 06:11 03/22/17 06:11 03/22/17 06:11 03/22/17 06:11 03/22/17 06:11 Intake and Output: 03/22/17 03/22/17 06:59 18:59 Intake Total 580 Balance 580 - Medications Medications: Current Medications Acetaminophen (Tylenol 325mg Tab) 650 mg PO Q4H PRN PRN Reason: Fever >100.4 F Last Admin: 03/21/17 18:55 Dose: 650 mg Albuterol/Ipratropium (Duoneb 3 Mg/0.5 Mg (3 Ml) Ud) 3 ml IH Q2H PRN PRN Reason: Shortness of Breath Carvedilol (Coreg) 3.125 mg PO BID [facility] Last Admin: 03/21/17 17:17 Dose: 3.125 mg Digoxin (Lanoxin) 0.25 mg PO 1400 [facility] Last Admin: 03/21/17 14:11 Dose: 0.25 mg Furosemide (Lasix) 40 mg IV 0800,1400 [facility] Last Admin: 03/21/17 14:09 Dose: 40 mg Milrinone Lactate/Dextrose (Primacor 20mg/100ml D5w) 100 mls @ 7.103 mls/hr IV .Q14H5M PRN; Protocol; 0.2 MCG/KG/MIN PRN Reason: TITRATE PER MD ORDER Last Admin: 03/21/17 21:44 Dose: 0.2 mcg/kg/min, 7.103 mls/hr Heparin Sodium/Dextrose (Heparin 25,000 Units/250ml In D5w) 25,000 units in 250 mls @ 10.124 mls/hr IV .Q24H PRN; Protocol; 9 UNITS/KG/HR PRN Reason: ADJUST RATE PER PROTOCOL Last Admin: 03/20/17 13:34 Dose: 9 units/kg/hr, 10.124 mls/hr Insulin Detemir (Levemir) 10 unit SC HS [facility] Last Admin: 03/21/17 22:31 Dose: 10 unit Insulin Human Lispro (Humalog High) 0 units SC ACHS [facility] PRN Reason: Protocol Last Admin: 03/21/17 22:30 Dose: Not Given Lisinopril (Zestril) 2.5 mg PO DAILY [facility] Last Admin: 03/21/17 09:06 Dose: 2.5 mg Morphine Sulfate (Morphine) 4 mg IVP Q4H PRN PRN Reason: Pain, moderate (4-7) Last Admin: 03/21/17 12:47 Dose: 4 mg Ondansetron HCl (Zofran Inj) 4 mg IVP Q6H PRN PRN Reason: Nausea/Vomiting Pantoprazole Sodium (Protonix Ec Tab) 40 mg PO 0600,1630 [facility] Last Admin: 03/22/17 05:35 Dose: 40 mg Potassium Chloride (K-Dur 20 Meq Er Tab) 20 meq PO BRK [facility] Last Admin: 03/21/17 07:50 Dose: 20 meq Spironolactone (Aldactone) 25 mg PO BID [facility] Last Admin: 03/21/17 17:18 Dose: 25 mg Verapamil HCl (Calan Tab) 40 mg PO TID [facility] Last Admin: 03/21/17 17:18 Dose: 40 mg Warfarin Sodium (Coumadin) 7.5 mg PO 1800 [facility] PRN Reason: Protocol - Labs Labs: 03/22/17 07:05 03/22/17 07:05 PT 34.9 Seconds (9.9-11.8) H* 03/22/17 07:05 INR 3.23 (0.93-1.08) H 03/22/17 07:05 APTT 88.5 Seconds (23.7-30.8) H* 03/21/17 11:45 - Constitutional Appears: Well - Head Exam Head Exam: NORMAL INSPECTION - Eye Exam Eye Exam: EOMI - ENT Exam ENT Exam: Mucous Membranes Moist - Neck Exam Neck Exam: Normal Inspection - Cardiovascular Exam Cardiovascular Exam: REGULAR RHYTHM - GI/Abdominal Exam GI & Abdominal Exam: Soft. absent: Distended, Tenderness Additional comments: Dressing on R. side over previous chest tube incision. C/D/I no signs of infection - Extremities Exam Extremities Exam: Normal Inspection - Back Exam Back Exam: NORMAL INSPECTION - Psychiatric Exam Psychiatric exam: Normal Affect, Normal Mood Assessment and Plan - Assessment and Plan (Free Text) Plan: s/p chest tube removal * dressing changed this am * no further surgical intervention needed at this time. Patient is clear from surgery standpoint. Armando CHRISTINE PGY-1
[2017-03-22] MEDS: Insulin Lispro (HUMAlog) HIGH Coverage SC SCH ×4 (09:05→21:57)
[2017-03-22] MEDS: Milrinone 20mg/100ml D5W 100 ML IV PRN (09:05)
[2017-03-22] MEDS: Potassium Chloride 20 mEq ER Tab PO SCH (09:11)
--- NOTE | 2017-03-22 09:21 | RAD ---
HISTORY: F/U pleural effusion and compare it please COMPARISON: March 21/2017 at 5:06 a.m. Left lung is clear TECHNIQUE: Chest PA and lateral FINDINGS: LUNGS: . Size of the right pleural effusion less than 1/2 the height of the right hemithorax. This is similar to 03/21/2017 study at 5:06 a.m.. The the right basal chest tube tip is difficult to visualize. On the lateral view, sliver like retrosternal residual pneumothorax is present. . This is much less than that suggested on the earlier CT chest exam from 03/17/2017. No lateral right pneumothorax is now appreciated PLEURA: As above CARDIOVASCULAR: Minimal cardiomegaly OSSEOUS STRUCTURES: Bilateral shoulder arthrosis VISUALIZED UPPER ABDOMEN: Normal. OTHER FINDINGS: None. IMPRESSION: The size of the right pleural effusion is similar to 03/21/2017 chest x-ray 5:06 a.m.. Right basal chest tube. sliver like retrosternal residual pneumothorax is present -much less than suggested on earlier CT.
--- NOTE | 2017-03-22 10:13 | CP.PCM.PN ---
Subjective - Date & Time of Evaluation Date of Evaluation: 03/22/17 Time of Evaluation: 08:15 - Subjective Subjective: feels ok on way for Cxr No chest pain, No SOB, Objective - Vital Signs/Intake and Output Vital Signs (last 24 hours): Temp Pulse Resp BP Pulse Ox 98.4 F 95 H 20 140/69 96 03/22/17 06:11 03/22/17 09:27 03/22/17 06:11 03/22/17 09:27 03/22/17 06:11 Intake and Output: 03/22/17 03/22/17 06:59 18:59 Intake Total 580 100 Balance 580 100 - Medications Medications: Current Medications Acetaminophen (Tylenol 325mg Tab) 650 mg PO Q4H PRN PRN Reason: Fever >100.4 F Last Admin: 03/21/17 18:55 Dose: 650 mg Albuterol/Ipratropium (Duoneb 3 Mg/0.5 Mg (3 Ml) Ud) 3 ml IH Q2H PRN PRN Reason: Shortness of Breath Carvedilol (Coreg) 3.125 mg PO BID [facility] Last Admin: 03/22/17 09:12 Dose: 3.125 mg Digoxin (Lanoxin) 0.25 mg PO 1400 [facility] Last Admin: 03/21/17 14:11 Dose: 0.25 mg Furosemide (Lasix) 40 mg IV 0800,1400 [facility] Last Admin: 03/22/17 09:10 Dose: 40 mg Milrinone Lactate/Dextrose (Primacor 20mg/100ml D5w) 100 mls @ 7.103 mls/hr IV .Q14H5M PRN; Protocol; 0.2 MCG/KG/MIN PRN Reason: TITRATE PER MD ORDER Last Admin: 03/22/17 09:05 Dose: 0.2 mcg/kg/min, 7.103 mls/hr Insulin Detemir (Levemir) 10 unit SC HS [facility] Last Admin: 03/21/17 22:31 Dose: 10 unit Insulin Human Lispro (Humalog High) 0 units SC ACHS [facility] PRN Reason: Protocol Last Admin: 03/22/17 09:05 Dose: 2 units Lisinopril (Zestril) 2.5 mg PO DAILY [facility] Last Admin: 03/21/17 09:06 Dose: 2.5 mg Morphine Sulfate (Morphine) 4 mg IVP Q4H PRN PRN Reason: Pain, moderate (4-7) Last Admin: 03/21/17 12:47 Dose: 4 mg Ondansetron HCl (Zofran Inj) 4 mg IVP Q6H PRN PRN Reason: Nausea/Vomiting Pantoprazole Sodium (Protonix Ec Tab) 40 mg PO 0600,1630 [facility] Last Admin: 03/22/17 05:35 Dose: 40 mg Potassium Chloride (K-Dur 20 Meq Er Tab) 20 meq PO BRK [facility] Last Admin: 03/22/17 09:11 Dose: 20 meq Spironolactone (Aldactone) 25 mg PO BID [facility] Last Admin: 03/22/17 09:10 Dose: 25 mg Verapamil HCl (Calan Tab) 40 mg PO TID [facility] Last Admin: 03/22/17 09:10 Dose: 40 mg Warfarin Sodium (Coumadin) 7.5 mg PO 1800 [facility] PRN Reason: Protocol - Labs Labs: 03/22/17 07:05 03/22/17 07:05 PT 34.9 Seconds (9.9-11.8) H* 03/22/17 07:05 INR 3.23 (0.93-1.08) H 03/22/17 07:05 APTT 88.5 Seconds (23.7-30.8) H* 03/21/17 11:45 - Constitutional Appears: Well - Head Exam Head Exam: ATRAUMATIC - Eye Exam Eye Exam: Conjunctival injection - Neck Exam Neck Exam: Full ROM - Respiratory Exam Respiratory Exam: Clear to Ausculation Bilateral Additional comments: But decraes air entry at bases r>l - Cardiovascular Exam Cardiovascular Exam: REGULAR RHYTHM Assessment and Plan - Assessment and Plan (Free Text) Assessment: large right pl effusio, S/p chest tube S/p removal of chest tube Hx Of CMP non ischemic s/p cardiac cath non Obst Cad Hx of SLE Hx of Lv thrombus on previous echo no thrombus on recent echo, but high risk for thrombo embolic, coumadin restrded.. supra therapeutic MUGa scan EF-37% Off Life Vest Plan: F/u Cxr PA/lat contiue dig./ diuretic/ coreg/Aaron/ coumadin goal to INR aroud 2.5 DC lisinopril before goes home.pt will start Enter[employer] at home F/u with PMd Card dr. Tushar Catherine to assess need for AICD siscussed with pt. will give 1 mg coumadin today, INR in am.
--- NOTE | 2017-03-22 10:26 | CP.PCM.PN ---
Subjective - Date & Time of Evaluation Date of Evaluation: 03/22/17 Time of Evaluation: 09:30 - Subjective Subjective: Comfortable, not in distress, afebrile. Objective - Vital Signs/Intake and Output Vital Signs (last 24 hours): Temp Pulse Resp BP Pulse Ox 98.4 F 98 H 20 95/52 L 96 03/22/17 06:11 03/22/17 06:11 03/22/17 06:11 03/22/17 06:11 03/22/17 06:11 Intake and Output: 03/21/17 03/22/17 18:59 06:59 Intake Total 100 580 Balance 100 580 - Medications Medications: Current Medications Acetaminophen (Tylenol 325mg Tab) 650 mg PO Q4H PRN PRN Reason: Fever >100.4 F Last Admin: 03/21/17 18:55 Dose: 650 mg Albuterol/Ipratropium (Duoneb 3 Mg/0.5 Mg (3 Ml) Ud) 3 ml IH Q2H PRN PRN Reason: Shortness of Breath Carvedilol (Coreg) 3.125 mg PO BID [facility] Last Admin: 03/21/17 17:17 Dose: 3.125 mg Digoxin (Lanoxin) 0.25 mg PO 1400 [facility] Last Admin: 03/21/17 14:11 Dose: 0.25 mg Furosemide (Lasix) 40 mg IV 0800,1400 [facility] Last Admin: 03/21/17 14:09 Dose: 40 mg Milrinone Lactate/Dextrose (Primacor 20mg/100ml D5w) 100 mls @ 7.103 mls/hr IV .Q14H5M PRN; Protocol; 0.2 MCG/KG/MIN PRN Reason: TITRATE PER MD ORDER Last Admin: 03/21/17 21:44 Dose: 0.2 mcg/kg/min, 7.103 mls/hr Heparin Sodium/Dextrose (Heparin 25,000 Units/250ml In D5w) 25,000 units in 250 mls @ 10.124 mls/hr IV .Q24H PRN; Protocol; 9 UNITS/KG/HR PRN Reason: ADJUST RATE PER PROTOCOL Last Admin: 03/20/17 13:34 Dose: 9 units/kg/hr, 10.124 mls/hr Insulin Detemir (Levemir) 10 unit SC [facility] Last Admin: 03/21/17 22:31 Dose: 10 unit Insulin Human Lispro (Humalog High) 0 units SC ACHS [facility] PRN Reason: Protocol Last Admin: 03/21/17 22:30 Dose: Not Given Lisinopril (Zestril) 2.5 mg PO DAILY [facility] Last Admin: 03/21/17 09:06 Dose: 2.5 mg Morphine Sulfate (Morphine) 4 mg IVP Q4H PRN PRN Reason: Pain, moderate (4-7) Last Admin: 03/21/17 12:47 Dose: 4 mg Ondansetron HCl (Zofran Inj) 4 mg IVP Q6H PRN PRN Reason: Nausea/Vomiting Pantoprazole Sodium (Protonix Ec Tab) 40 mg PO 0600,1630 [facility] Last Admin: 03/22/17 05:35 Dose: 40 mg Potassium Chloride (K-Dur 20 Meq Er Tab) 20 meq PO BRK [facility] Last Admin: 03/21/17 07:50 Dose: 20 meq Spironolactone (Aldactone) 25 mg PO BID [facility] Last Admin: 03/21/17 17:18 Dose: 25 mg Verapamil HCl (Calan Tab) 40 mg PO TID [facility] Last Admin: 03/21/17 17:18 Dose: 40 mg Warfarin Sodium (Coumadin) 7.5 mg PO 1800 [facility] PRN Reason: Protocol - Labs Labs: 03/21/17 05:20 03/21/17 05:20 PT 35.9 Seconds (9.9-11.8) H* 03/21/17 11:45 INR 3.32 (0.93-1.08) H 03/21/17 11:45 APTT 88.5 Seconds (23.7-30.8) H* 03/21/17 11:45 - Constitutional Appears: Non-toxic, No Acute Distress - Head Exam Head Exam: NORMAL INSPECTION - Neck Exam Neck Exam: absent: Meningismus - Respiratory Exam Respiratory Exam: Decreased Breath Sounds - Cardiovascular Exam Cardiovascular Exam: +S1, +S2 - GI/Abdominal Exam GI & Abdominal Exam: Soft. absent: Tenderness Assessment and Plan - Assessment and Plan (Free Text) Plan: Assessment S/P right sided healthcare-associated pneumonia S/P chest tube placement POD #7 and now removed systemic lupus erythematosus morbid obesity with BMI 41 DM asthma history of migraine headaches history of spinal stenosis history of ectopic Plan S/P 7 days of Doxycycline and Merrem - will continue to monitor off antibiotics since she is at risk for nosocomial infections - will continue to monitor WBC count which is still elevated
--- NOTE | 2017-03-22 11:28 | CP.PCM.PN ---
Subjective - Date & Time of Evaluation Date of Evaluation: 03/21/17 Time of Evaluation: 18:00 - Subjective Subjective: Feeling better Objective - Vital Signs/Intake and Output Vital Signs (last 24 hours): Temp Pulse Resp BP Pulse Ox 98.4 F 95 H 20 140/69 96 03/22/17 06:11 03/22/17 09:27 03/22/17 06:11 03/22/17 09:27 03/22/17 06:11 Intake and Output: 03/22/17 03/22/17 06:59 18:59 Intake Total 580 100 Balance 580 100 - Medications Medications: Current Medications Acetaminophen (Tylenol 325mg Tab) 650 mg PO Q4H PRN PRN Reason: Fever >100.4 F Last Admin: 03/21/17 18:55 Dose: 650 mg Albuterol/Ipratropium (Duoneb 3 Mg/0.5 Mg (3 Ml) Ud) 3 ml IH Q2H PRN PRN Reason: Shortness of Breath Carvedilol (Coreg) 3.125 mg PO BID [facility] Last Admin: 03/22/17 09:12 Dose: 3.125 mg Digoxin (Lanoxin) 0.25 mg PO 1400 [facility] Last Admin: 03/21/17 14:11 Dose: 0.25 mg Furosemide (Lasix) 40 mg PO 0800,1400 [facility] Insulin Detemir (Levemir) 10 unit SC HS [facility] Last Admin: 03/21/17 22:31 Dose: 10 unit Insulin Human Lispro (Humalog High) 0 units SC [facility] PRN Reason: Protocol Last Admin: 03/22/17 09:05 Dose: 2 units Lisinopril (Zestril) 2.5 mg PO DAILY [facility] Last Admin: 03/22/17 10:05 Dose: 2.5 mg Morphine Sulfate (Morphine) 4 mg IVP Q4H PRN PRN Reason: Pain, moderate (4-7) Last Admin: 03/21/17 12:47 Dose: 4 mg Ondansetron HCl (Zofran Inj) 4 mg IVP Q6H PRN PRN Reason: Nausea/Vomiting Last Admin: 03/22/17 10:04 Dose: 4 mg Pantoprazole Sodium (Protonix Ec Tab) 40 mg PO 0600,1630 [facility] Last Admin: 03/22/17 05:35 Dose: 40 mg Potassium Chloride (K-Dur 20 Meq Er Tab) 20 meq PO BRK [facility] Last Admin: 03/22/17 09:11 Dose: 20 meq Spironolactone (Aldactone) 25 mg PO BID [facility] Last Admin: 03/22/17 09:10 Dose: 25 mg Verapamil HCl (Calan Tab) 40 mg PO TID [facility] Stop: 03/22/17 23:59 Last Admin: 03/22/17 09:10 Dose: 40 mg Verapamil HCl (Calan Sr Tab) 120 mg PO DAILY [facility] Warfarin Sodium (Coumadin) 1 mg PO 1800 [facility] PRN Reason: Protocol - Labs Labs: 03/22/17 07:05 03/22/17 07:05 PT 34.9 Seconds (9.9-11.8) H* 03/22/17 07:05 INR 3.23 (0.93-1.08) H 03/22/17 07:05 APTT 88.5 Seconds (23.7-30.8) H* 03/21/17 11:45 - Head Exam Head Exam: ATRAUMATIC - Eye Exam Eye Exam: Normal appearance - ENT Exam ENT Exam: Mucous Membranes Dry - Respiratory Exam Respiratory Exam: NORMAL BREATHING PATTERN - Cardiovascular Exam Cardiovascular Exam: +S1, +S2 - GI/Abdominal Exam GI & Abdominal Exam: Normal Bowel Sounds - Extremities Exam Extremities Exam: Pedal Edema Assessment and Plan (1) Protein C deficiency Assessment & Plan: Protein C+S deficiency noted while on coumadin; may be low from coumadin Status: Acute (2) Mural thrombus of cardiac apex Assessment & Plan: therapeutic anticoagulation likely related to cardiomyopathy but inhertited thrombophilia w/u sent Status: Acute (3) Coagulopathy Assessment & Plan: anticoagulation Status: Acute (4) Anemia Assessment & Plan: chronic disease and immunosuppression Status: Acute (5) Leukocytosis Assessment & Plan: may be reactive Status: Acute
--- NOTE | 2017-03-22 11:38 | CP.PCM.PN ---
<ТАТЬЯНА METCALF - Last Filed: 03/22/17 11:34> Subjective - Date & Time of Evaluation Date of Evaluation: 03/22/17 Time of Evaluation: 09:10 - Subjective Subjective: Medicine Progress Note: Pt seen and examined at bedside. Pt states that she felt nauseous yesterday, however today vomitted once. Pt states that she tolerated ambulation with PT well. Pt denied CP, fever, abdominal pain, and chills. Objective - Vital Signs/Intake and Output Vital Signs (last 24 hours): Temp Pulse Resp BP Pulse Ox 98.4 F 95 H 20 140/69 96 03/22/17 06:11 03/22/17 09:27 03/22/17 06:11 03/22/17 09:27 03/22/17 06:11 Intake and Output: 03/22/17 03/22/17 06:59 18:59 Intake Total 580 100 Balance 580 100 - Medications Medications: Current Medications Acetaminophen (Tylenol 325mg Tab) 650 mg PO Q4H PRN PRN Reason: Fever >100.4 F Last Admin: 03/21/17 18:55 Dose: 650 mg Albuterol/Ipratropium (Duoneb 3 Mg/0.5 Mg (3 Ml) Ud) 3 ml IH Q2H PRN PRN Reason: Shortness of Breath Carvedilol (Coreg) 3.125 mg PO BID [facility] Last Admin: 03/22/17 09:12 Dose: 3.125 mg Digoxin (Lanoxin) 0.25 mg PO 1400 [facility] Last Admin: 03/21/17 14:11 Dose: 0.25 mg Furosemide (Lasix) 40 mg PO 0800,1400 [facility] Insulin Detemir (Levemir) 10 unit SC HS [facility] Last Admin: 03/21/17 22:31 Dose: 10 unit Insulin Human Lispro (Humalog High) 0 units SC ACHS [facility] PRN Reason: Protocol Last Admin: 03/22/17 09:05 Dose: 2 units Lisinopril (Zestril) 2.5 mg PO DAILY [facility] Last Admin: 03/22/17 10:05 Dose: 2.5 mg Morphine Sulfate (Morphine) 4 mg IVP Q4H PRN PRN Reason: Pain, moderate (4-7) Last Admin: 03/21/17 12:47 Dose: 4 mg Ondansetron HCl (Zofran Inj) 4 mg IVP Q6H PRN PRN Reason: Nausea/Vomiting Last Admin: 03/22/17 10:04 Dose: 4 mg Pantoprazole Sodium (Protonix Ec Tab) 40 mg PO 0600,1630 [facility] Last Admin: 03/22/17 05:35 Dose: 40 mg Potassium Chloride (K-Dur 20 Meq Er Tab) 20 meq PO BRK [facility] Last Admin: 03/22/17 09:11 Dose: 20 meq Spironolactone (Aldactone) 25 mg PO BID [facility] Last Admin: 03/22/17 09:10 Dose: 25 mg Verapamil HCl (Calan Tab) 40 mg PO TID [facility] Stop: 03/22/17 23:59 Last Admin: 03/22/17 09:10 Dose: 40 mg Verapamil HCl (Calan Sr Tab) 120 mg PO DAILY [facility] Warfarin Sodium (Coumadin) 1 mg PO 1800 [facility] PRN Reason: Protocol - Labs Labs: 03/22/17 07:05 03/22/17 07:05 PT 34.9 Seconds (9.9-11.8) H* 03/22/17 07:05 INR 3.23 (0.93-1.08) H 03/22/17 07:05 APTT 88.5 Seconds (23.7-30.8) H* 03/21/17 11:45 - Head Exam Head Exam: ATRAUMATIC, NORMOCEPHALIC - Eye Exam Eye Exam: EOMI, PERRL - ENT Exam ENT Exam: Mucous Membranes Moist - Neck Exam Neck Exam: Full ROM - Respiratory Exam Respiratory Exam: Clear to Ausculation Bilateral. absent: Rales, Rhonchi, Wheezes - Cardiovascular Exam Cardiovascular Exam: Tachycardia, REGULAR RHYTHM. absent: Gallop, Rubs, Murmur - GI/Abdominal Exam GI & Abdominal Exam: Soft. absent: Distended, Guarding, Tenderness - Extremities Exam Extremities Exam: Full ROM. absent: Joint Swelling - Neurological Exam Neurological Exam: Alert, Awake, Oriented x3 - Skin Skin Exam: Dry, Intact, Normal Color, Warm Assessment and Plan - Assessment and Plan (Free Text) Assessment: Patient is a 46 yo with severe dilated cardiomyopathy with severe LV systolic dysfunction admitted to the ICU for evaluation and treatment of acute respiratory distress, anemia, and a supratherapeutic INR 1. Acute respiratory distress 2/2 Empyema vs. Hemothorax vs pna -Surgery consulted - chest tube removed, clear from surgical standpoint -CXR shows size of right pleural effusion similar to 03/21/17 CXR, Retrosternal residedual pneumothorax much less than earlier CT -ID consulted - d/c all abx, monitor WBC -CT chest: significant dec in size of pleural effusion , reexpansion of RU lung , partial expansion of R middle and RL lung. -F/u pleural fluid cultures, blood cx x 2 negative -Cont. Duoneb prn -Cont PT as tolerated 2. Dilated cardiomyopathy with severe LV systolic dysfunction -Consulted cardiology - heparin d/c, PO coumadin 1 today -Cont digoxin, aldactone, Coreg, Lisinopril -Monitor for therapeutic INR -MUGA scan: mod LV dysfunction w difusse hypokinessi LVEF 37% -Heparin ggt - pmh of LV thrombus -Echo revealed no LV thrombus, EF 15% with dilated and severe systolic dys -Monitor INR 3. Hypokalemia - stable - Repleted with KCl PO - cont to monitor via BMP 4. Left leg pain -Extremity US negative for DVT -Morphine 4q4 prn 5. Insulin dependent diabetes mellitus -Levemir 10 units -Humalog ISS as protocol 6. GI/DVT PPx -Protonix -Lovenox 7. Protein C Deficiency -HemeOnc on board -these results may be inaccurate given testing done while on coumadin Patient and plan was seen and discussed in detail with Dr. Haines. <Hernandez Haines - Last Filed: 03/22/17 15:14> Objective - Vital Signs/Intake and Output Vital Signs (last 24 hours): Temp Pulse Resp BP Pulse Ox 98.9 F 104 H 20 115/53 L 96 03/22/17 12:00 03/22/17 12:00 03/22/17 12:00 03/22/17 12:00 03/22/17 06:11 Intake and Output: 03/22/17 03/22/17 06:59 18:59 Intake Total 580 400 Output Total 1200 Balance 580 -800 - Medications Medications: Current Medications Acetaminophen (Tylenol 325mg Tab) 650 mg PO Q4H PRN PRN Reason: Fever >100.4 F Last Admin: 03/21/17 18:55 Dose: 650 mg Albuterol/Ipratropium (Duoneb 3 Mg/0.5 Mg (3 Ml) Ud) 3 ml IH Q2H PRN PRN Reason: Shortness of Breath Carvedilol (Coreg) 3.125 mg PO BID [facility] Last Admin: 03/22/17 09:12 Dose: 3.125 mg Digoxin (Lanoxin) 0.25 mg PO 1400 [facility] Last Admin: 03/22/17 14:20 Dose: 0.25 mg Furosemide (Lasix) 40 mg PO 0800,1400 [facility] Insulin Detemir (Levemir) 10 unit SC HS [facility] Last Admin: 03/21/17 22:31 Dose: 10 unit Insulin Human Lispro (Humalog High) 0 units SC ACHS [facility] PRN Reason: Protocol Last Admin: 03/22/17 14:20 Dose: 4 units Lisinopril (Zestril) 2.5 mg PO DAILY [facility] Last Admin: 03/22/17 10:05 Dose: 2.5 mg Morphine Sulfate (Morphine) 4 mg IVP Q4H PRN PRN Reason: Pain, moderate (4-7) Last Admin: 03/22/17 14:24 Dose: 4 mg Ondansetron HCl (Zofran Inj) 4 mg IVP Q6H PRN PRN Reason: Nausea/Vomiting Last Admin: 03/22/17 10:04 Dose: 4 mg Pantoprazole Sodium (Protonix Ec Tab) 40 mg PO 0600,1630 [facility] Last Admin: 03/22/17 05:35 Dose: 40 mg Potassium Chloride (K-Dur 20 Meq Er Tab) 20 meq PO BRK [facility] Last Admin: 03/22/17 09:11 Dose: 20 meq Spironolactone (Aldactone) 25 mg PO BID [facility] Last Admin: 03/22/17 09:10 Dose: 25 mg Verapamil HCl (Calan Tab) 40 mg PO TID [facility] Stop: 03/22/17 23:59 Last Admin: 03/22/17 14:20 Dose: 40 mg Verapamil HCl (Calan Sr Tab) 120 mg PO DAILY [facility] Warfarin Sodium (Coumadin) 1 mg PO 1800 [facility] PRN Reason: Protocol - Labs Labs: 03/22/17 07:05 03/22/17 07:05 PT 34.9 Seconds (9.9-11.8) H* 03/22/17 07:05 INR 3.23 (0.93-1.08) H 03/22/17 07:05 APTT 88.5 Seconds (23.7-30.8) H* 03/21/17 11:45 Attending/Attestation - Attestation I have personally seen and examined this patient.: Yes I have fully participated in the care of the patient.: Yes I have reviewed all pertinent clinical information, including history, physical exam and plan: Yes Notes (Text): 03/22/17 15:10 Attending note; Patient seen and examined with resident. Patient is a 46 year old female with past medical history of cardiac thrombus, dilated cardiomyopathy and diabetes who presented with sepsis and respiratory distress. She was found to have large right pleural effusion and supratherapeutic INR. She was seen by surgery and chest tube was placed. She was started on iv antibiotics. Her symptoms have improved and her chest tube was removed. Anti-biotics stopped. had an episode of vomiting this morning after po pills. repeat chest x-ray showed minimal right-sided effusion. Case discussed with Dr. Alicea surgery in detail. We will refer the patient to outpatient cardiothoracic surgery upon discharge. Repeat echocardiogram showed no cardiac thrombus was seen. She is on heparin drip for anticoagulation and started on coumadin. INR is therapeutic. Cardiology evaluation with appreciated. She is on lasix, coreg, digoxin, lisinopril, aldactone and verapamil. History of lupus; follow-up with rheumatology as outpatient. She is on levemir and insulin ss for diabetes. Needs to follow up with hematology Dr. Garcia for inherited hypercoagulable workup/ To determine the duration of anticoagulation. needs close follow-up of INR to adjust Coumadin. Patient is on 1 mg of Coumadin now. PT evaluation appreciated. Out of bed to chair as tolerated. Upon discharge patient will follow-up with PMD Dr. Ben Yee and cardiology DR. Lofton. 03/22/17 15:12 03/22/17 15:13
[2017-03-22] MEDS: Digoxin 250 mcg (0.25 mg) Tab PO SCH (14:20)
[2017-03-22] MEDS: Morphine 4 mg/ml ISec IVP PRN (14:24)
[2017-03-22] MEDS: Insulin Detemir 100 units/ml Vial (Levemir) SC SCH (21:58)
[2017-03-23] MEDS: Pantoprazole 40 mg EC Tab PO SCH ×2 (05:38→18:04)
[2017-03-23 07:28] LABS: PROTHROMBIN TIME 37.9 Seconds (9.9-11.8)
[2017-03-23 07:36] LABS: INR 3.51 (0.93-1.08)
[2017-03-23] MEDS: Insulin Lispro (HUMAlog) HIGH Coverage SC SCH ×4 (07:38→21:46)
[2017-03-23] MEDS: Verapamil 120 mg ER Tab PO SCH (09:25)
[2017-03-23] MEDS: Potassium Chloride 20 mEq ER Tab PO SCH (09:26)
--- NOTE | 2017-03-23 09:33 | CP.PCM.CON ---
History of Present Illness - History of Present Illness History of Present Illness: Palliative consult requested by Dr Wojciech Haines Reason: Advance care planning 46 year old female who presented with increasing shortness of breath and weakness.The patient has a history of CAD, EF 15% wearing life vest awaiting ICD placement. Work up revealed leukocytosis,anemia, supratherapeutic. CT of chest revealed large right pleural effusion which was subsequently drained of bloody fluid. A chest tube was placed for further drainage but has since been removed. She was managed in the ICU but stabilized and was transferred to telemetry. She remains on antibiotics for CAP and anticoagulation therapy, cardiac follow up. PMHx: DM, systemic lupus erythematosus, spinal stenosis, GERD, CHF, non obstructing CAD, EF 15%, moderate mistral regurgitation, LV thrombus,migraine headaches. Social History: No smoker, no alcohol or drug use. Single, has a mother who lives in [place]. Family History: Non contributory Advance Care Planning:The patient does not have an Advance Directing She wants full resuscitation efforts. Review of Systems - Review of Systems Review of Systems: obese - Constitutional Constitutional: Fatigue, Weakness - EENT Additional comments: negative - Breasts Additional comments: negative - Cardiovascular Cardiovascular: Dyspnea on Exertion - Respiratory Respiratory: Cough, Dyspnea on Exertion - Gastrointestinal Additional comments: negative - Genitourinary Additional comments: negative - Musculoskeletal Musculoskeletal: Muscle Weakness, Myalgias - Neurological Additional comments: negative - Psychiatric Additional comments: negative Past Patient History - Infectious Disease Hx of Infectious Diseases: None - Past Social History Smoking Status: Never Smoked - CARDIAC Hx Hypercholesterolemia: Yes Hx Hypertension: Yes - PULMONARY Hx Respiratory Disorders: Yes Hx Asthma: Yes Hx Bronchitis: Yes Hx Chronic Obstructive Pulmonary Disease (COPD): No Hx Emphysema: No Hx Pneumonia: Yes Hx Respiratory Aspiration: No Hx Respiratory Tract Infection: No Hx Sleep Apnea: No Hx Tuberculosis: No - NEUROLOGICAL Hx Neurological Disorder: Yes Hx Alzheimer's Disease: No HX Cerebrovascular Accident: No Hx Dementia: No Hx Dizziness: No Hx Meningitis: No Hx Migraine: Yes Hx Parkinson's Disease: No Hx Seizures: No Hx Transient Ischemic Attacks (TIA): No - HEENT Hx HEENT Problems: No Hx Blind: No Hx Cataracts: Yes (bilat cataract sx jun 2016) Hx Deafness: No Hx Difficulty Chewing: No Hx Epistaxis: No Hx Glaucoma: No Hx Macular Degeneration: No - RENAL Hx Chronic Kidney Disease: No Hx Dialysis: No Hx Kidney Stones: No Hx Neurogenic Bladder: No Hx Pyelonephritis: No Hx Renal (Kidney) Cancer: No Hx Renal Failure: No - ENDOCRINE/METABOLIC Hx Diabetes Mellitus Type 2: Yes - HEMATOLOGICAL/ONCOLOGICAL Hx Blood Disorders: No Hx AIDS: No Hx Anemia: No Hx Cancer: No Hx Chemotherapy: No Hx Cirrhosis: No Hx Hemophilia: No Hx Hepatitis A: No Hx Hepatitis B: No Hx Hepatitis C: No Hx Human Immunodeficiency Virus (HIV): No Hx Metastesis: No Hx Shingles: No Hx Sickle Cell Disease: No Hx Unexplained Bleeding: No - INTEGUMENTARY Hx Dermatological Problems: No Hx Basil Cell: No Hx Eczema: No Hx Melanoma: No Hx Psoriasis: No Hx Squamous Cell: No - MUSCULOSKELETAL/RHEUMATOLOGICAL Hx Musculoskeletal Disorders: Yes Hx Arthritis: No Hx Back Pain: Yes Hx Degenerative Joint Disease: Yes Hx Falls: Yes Hx Fractures: No Hx Gout: No Hx Herniated Disk: No Hx Myasthenia Gravis: No Hx Osteoarthritis: No Hx Osteomyelitis: No Hx Osteoporosis: No Hx Rhabdomyolysis: No Hx Spinal Stenosis: Yes Hx Unsteady Gait: No - GASTROINTESTINAL Hx Gastrointestinal Disorders: No Hx Colostomy: No Hx Crohn's Disease: No Hx Diverticulitis: No Hx Gall Bladder Disease: No Hx Gastroesophageal Reflux: No Hx Ileostomy: No Hx Liver Failure: No Hx Pancreatitis: No HX Swallowing Problems: No Hx Ulcer: No - GENITOURINARY/GYNECOLOGICAL Hx Genitourinary Disorders: No Hx Hematuria: No Hx Incontinence: No Hx Sexually Transmitted Disorders: No Other/Comment: ectopic then tubal ligation - PSYCHIATRIC Hx Psychophysiologic Disorder: No Hx Anxiety: No Hx Bipolar Disorder: No Hx Depression: No Hx Emotional Abuse: No Hx Hallucinations: No Hx Panic Symptoms: No Hx Paranoia: No Hx Post Traumatic Stress Disorder: No Hx Psychosis: No Hx Physical Abuse: No Hx Schizophrenia: No Hx Sexual Abuse: No - SURGICAL HISTORY Hx Surgeries: Yes Hx Cardiac Catheterization: No Hx Coronary Stent: No Other/Comment: Eptopic Preg - ANESTHESIA Hx Anesthesia: Yes Hx Anesthesia Reactions: No Meds Allergies/Adverse Reactions: Allergies Allergy/AdvReac Type Severity Reaction Status Date / Time No Known Allergies Allergy Verified 03/14/17 20:31 - Medications Medications: Current Medications Acetaminophen (Tylenol 325mg Tab) 650 mg PO Q4H PRN PRN Reason: Fever >100.4 F Last Admin: 03/23/17 05:11 Dose: 650 mg Albuterol/Ipratropium (Duoneb 3 Mg/0.5 Mg (3 Ml) Ud) 3 ml IH Q2H PRN PRN Reason: Shortness of Breath Last Admin: 03/22/17 22:13 Dose: 3 ml Carvedilol (Coreg) 3.125 mg PO BID [facility] Last Admin: 03/23/17 09:25 Dose: 3.125 mg Digoxin (Lanoxin) 0.25 mg PO 1400 [facility] Last Admin: 03/22/17 14:20 Dose: 0.25 mg Furosemide (Lasix) 40 mg PO 0800,1400 [facility] Last Admin: 03/23/17 09:25 Dose: 40 mg Insulin Detemir (Levemir) 10 unit SC HS [facility] Last Admin: 03/22/17 21:58 Dose: 10 unit Insulin Human Lispro (Humalog High) 0 units SC ACHS [facility] PRN Reason: Protocol Last Admin: 03/22/17 21:57 Dose: Not Given Lisinopril (Zestril) 2.5 mg PO DAILY [facility] Last Admin: 03/23/17 09:25 Dose: 2.5 mg Ondansetron HCl (Zofran Inj) 4 mg IVP Q6H PRN PRN Reason: Nausea/Vomiting Last Admin: 03/22/17 10:04 Dose: 4 mg Pantoprazole Sodium (Protonix Ec Tab) 40 mg PO 0600,1630 [facility] Last Admin: 03/23/17 05:38 Dose: 40 mg Potassium Chloride (K-Dur 20 Meq Er Tab) 20 meq PO BRK [facility] Last Admin: 03/23/17 09:26 Dose: 20 meq Spironolactone (Aldactone) 25 mg PO BID [facility] Last Admin: 03/23/17 09:25 Dose: 25 mg Verapamil HCl (Calan Sr Tab) 120 mg PO DAILY [facility] Last Admin: 03/23/17 09:25 Dose: 120 mg Warfarin Sodium (Coumadin) 1 mg PO 1800 [facility] PRN Reason: Protocol Last Admin: 03/22/17 18:11 Dose: 1 mg Physical Exam - Constitutional Appears: Chronically Ill - Head Exam Head Exam: NORMOCEPHALIC - Eye Exam Eye Exam: Normal appearance, PERRL - ENT Exam ENT Exam: Mucous Membranes Moist, Normal Oropharynx - Neck Exam Neck exam: Positive for: Normal Inspection - Respiratory Exam Respiratory Exam: Decreased Breath Sounds, NORMAL BREATHING PATTERN Additional comments: dyspnea on exertion - Cardiovascular Exam Cardiovascular Exam: REGULAR RHYTHM, +S1, +S2, Systolic Murmur - GI/Abdominal Exam GI & Abdominal Exam: Normal Bowel Sounds, Soft - Neurological Exam Neurological exam: Alert, Oriented x3 - Psychiatric Exam Psychiatric exam: Normal Mood - Skin Skin Exam: Dry, Pallor - Additional Findings Additional findings: Palliative performance scale rating 40 % Results - Vital Signs Recent Vital Signs: Last Vital Signs Temp 98 F 03/23/17 06:00 Pulse 89 03/23/17 06:00 Resp 18 03/23/17 06:00 BP 122/71 03/23/17 09:25 Pulse Ox 93 L 03/23/17 06:00 - Labs Result Diagrams: 03/24/17 05:35 03/24/17 05:35 Labs: Laboratory Results - last 24 hr 03/15/17 03/22/17 03/22/17 18:05 11:15 15:52 PT INR POC Glucose (mg/dL) 236 H 132 H Rheumatoid Factor TNP JAY Screen TNP JAY Titer TNP JAY Pattern TNP SS-A Antibody TNP SS-B Antibody TNP Sm (Quijano) Antibody TNP SM/RESOURCE TECHNICIAN Antibody TNP Scl-70 Antibody TNP Anti-ds DNA Titer (Crith) TNP Anti-ds DNA (Crithidia) TNP Ribosomal P Prot Ab TNP Anti-Mitochondrial Titr TNP Anti-Mitochondrial Ab TNP Actin IgG Antibody TNP Striated Muscle Ab TNP Myocardial Ab Titer TNP Anti-Myocardial Ab TNP Reticulin Ab Titer TNP Reticulin IgA Antibody TNP Thyroperoxidase Ab TNP Anti-Parietal Cell Ab TNP Complement C3 TNP Complement C4 TNP 03/22/17 03/23/17 03/23/17 21:35 06:45 07:24 PT 37.9 H* INR 3.51 H* POC Glucose (mg/dL) 238 H 129 H Rheumatoid Factor JAY Screen JAY Titer JAY Pattern SS-A Antibody SS-B Antibody Sm (Quijano) Antibody SM/RESOURCE TECHNICIAN Antibody Scl-70 Antibody Anti-ds DNA Titer (Crith) Anti-ds DNA (Crithidia) Ribosomal P Prot Ab Anti-Mitochondrial Titr Anti-Mitochondrial Ab Actin IgG Antibody Striated Muscle Ab Myocardial Ab Titer Anti-Myocardial Ab Reticulin Ab Titer Reticulin IgA Antibody Thyroperoxidase Ab Anti-Parietal Cell Ab Complement C3 Complement C4 Assessment & Plan - Assessment and Plan (Free Text) Assessment: 46 year old female admitted with supratherpautic INR, large right pleural effusion s/p thoracentisis /chest tube, CAP, anemia,respiratory failure, Multiple comorbidities, please see PMH. The patient requested a palliative care consult as she wanted to discuss advance care planning. The patient is aware of her diagnosis and multiple medical issues. She expressed that she intends to pursue full medical treatments as offered. Ms. Brambila wants to have full resuscitative efforts, meaning CPR/intubation. She is aware of the benefits and burdens of CPR/ intubation. She stated that she does not want to be kept alive on machines, especially if she is in a vegetative state or if she needs permanent mechanical ventilation. If this should occur, she requests termination and withdrawal of all life sustaining measures. She does not want a permanent feeding tube, but agrees to a temporary trial period of artificial nutrition. We completed a POLST with these stipulations included. The patient does not want to elect a health care surrogate. 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 Psychosocial support given. Time spent in discussion with patient regarding goals of care and advance care planning, 30 minutes Plan: Advance care planning. No further recommendations at this time.
[2017-03-23 09:58] LABS: BASO # 0.04 K/mm3 (0.0-2.0); BASO % 0.3 % (0.0-3.0); EOS # 0.4 (0.0-0.7); EOS % 2.3 % (1.5-5.0); GRAN # 10.69 (1.4-6.5); GRAN % 67.8 % (50.0-68.0); HEMOGLOBIN 9.9 gm/dL (12.0-16.0); LYMPH # 3.3 (1.2-3.4); MEAN CELL VOLUME 77.4 fL (80.0-105.0); MEAN CORPUSCULAR HEMOGLOBIN 24.3 pg (25.0-35.0); MEAN CORPUSCULAR HGB CONC 31.4 g/dl (31.0-37.0); MONO # 1.4 (0.1-0.6); MONO % 8.6 % (1.0-6.0); PLATELET COUNT 534 10^3/uL (120.0-450.0); RBC 4.07 10^6/uL (3.5-6.1); RED CELL DISTRIBUTION WIDTH 17.1 % (11.5-14.5); WHITE BLOOD COUNT 15.8 10^3/ul (4.5-11.0)
[2017-03-23 10:15] LABS: BLOOD UREA NITROGEN 11 mg/dL (7-21); CALCIUM 9.7 mg/dL (8.4-10.5); GFR AFRICAN-AMERICAN > 60; GFR NON-AFRICAN AMERICAN > 60
--- NOTE | 2017-03-23 14:24 | CP.PCM.PN ---
<ТАТЬЯНА METCALF - Last Filed: 03/23/17 14:20> Subjective - Date & Time of Evaluation Date of Evaluation: 03/23/17 Time of Evaluation: 11:00 - Subjective Subjective: Medicine Progress Note: Pt seen and examined at bedside. Pt denies acute overnight events. Pt states that nausea is improved with no vomiting over the past day. Pt reports 2 instances of loose stools and left foot pain. Pt states that she feels nervous about going home without help. Pt denies CP, SOB, n/v/f, chills, and abdominal pain. Objective - Vital Signs/Intake and Output Vital Signs (last 24 hours): Temp Pulse Resp BP Pulse Ox 98.3 F 86 20 113/66 93 L 03/23/17 12:00 03/23/17 12:00 03/23/17 12:00 03/23/17 12:00 03/23/17 06:00 Intake and Output: 03/23/17 03/23/17 06:59 18:59 Intake Total 1920 Output Total 600 Balance 1320 - Medications Medications: Current Medications Acetaminophen (Tylenol 325mg Tab) 650 mg PO Q4H PRN PRN Reason: Fever >100.4 F Last Admin: 03/23/17 05:11 Dose: 650 mg Albuterol/Ipratropium (Duoneb 3 Mg/0.5 Mg (3 Ml) Ud) 3 ml IH Q2H PRN PRN Reason: Shortness of Breath Last Admin: 03/22/17 22:13 Dose: 3 ml Carvedilol (Coreg) 3.125 mg PO BID [facility] Last Admin: 03/23/17 09:25 Dose: 3.125 mg Digoxin (Lanoxin) 0.25 mg PO 1400 [facility] Last Admin: 03/22/17 14:20 Dose: 0.25 mg Furosemide (Lasix) 40 mg PO 0800,1400 [facility] Last Admin: 03/23/17 09:25 Dose: 40 mg Insulin Detemir (Levemir) 10 unit SC HS [facility] Last Admin: 03/22/17 21:58 Dose: 10 unit Insulin Human Lispro (Humalog High) 0 units SC ACHS [facility] PRN Reason: Protocol Last Admin: 03/23/17 07:38 Dose: Not Given Lisinopril (Zestril) 2.5 mg PO DAILY [facility] Last Admin: 03/23/17 09:25 Dose: 2.5 mg Ondansetron HCl (Zofran Inj) 4 mg IVP Q6H PRN PRN Reason: Nausea/Vomiting Last Admin: 03/22/17 10:04 Dose: 4 mg Pantoprazole Sodium (Protonix Ec Tab) 40 mg PO 0600,1630 [facility] Last Admin: 03/23/17 05:38 Dose: 40 mg Potassium Chloride (K-Dur 20 Meq Er Tab) 20 meq PO BRK [facility] Last Admin: 03/23/17 09:26 Dose: 20 meq Spironolactone (Aldactone) 25 mg PO BID [facility] Last Admin: 03/23/17 09:25 Dose: 25 mg Verapamil HCl (Calan Sr Tab) 120 mg PO DAILY [facility] Last Admin: 03/23/17 09:25 Dose: 120 mg Warfarin Sodium (Coumadin) 1 mg PO 1800 [facility] PRN Reason: Protocol Last Admin: 03/22/17 18:11 Dose: 1 mg - Labs Labs: 03/23/17 08:00 03/23/17 08:00 PT 37.9 Seconds (9.9-11.8) H* 03/23/17 06:45 INR 3.51 (0.93-1.08) H* 03/23/17 06:45 APTT 88.5 Seconds (23.7-30.8) H* 03/21/17 11:45 - Head Exam Head Exam: ATRAUMATIC, NORMOCEPHALIC - Eye Exam Eye Exam: EOMI, PERRL - ENT Exam ENT Exam: Mucous Membranes Moist - Neck Exam Neck Exam: Full ROM - Respiratory Exam Respiratory Exam: Clear to Ausculation Bilateral. absent: Rales, Rhonchi, Wheezes - Cardiovascular Exam Cardiovascular Exam: RRR, +S1, +S2. absent: Gallop, Rubs, Murmur - GI/Abdominal Exam GI & Abdominal Exam: Soft. absent: Distended, Guarding, Tenderness - Extremities Exam Extremities Exam: Full ROM. absent: Joint Swelling Additional comments: B/L DP pulses palpable. - Neurological Exam Neurological Exam: Alert, Awake, Oriented x3 - Psychiatric Exam Psychiatric exam: Normal Affect - Skin Skin Exam: Dry, Intact, Normal Color, Warm Assessment and Plan - Assessment and Plan (Free Text) Assessment: Patient is a 46 yo with severe dilated cardiomyopathy with severe LV systolic dysfunction admitted to the ICU for evaluation and treatment of acute respiratory distress, anemia, and a supratherapeutic INR 1. Acute respiratory distress 2/2 Empyema vs. Hemothorax vs pna -Plan for possible DC tomorrow -Case management consulted for home health care -Surgery consulted - chest tube removed, clear from surgical standpoint -CXR shows size of right pleural effusion similar to 03/21/17 CXR, Retrosternal residedual pneumothorax much less than earlier CT -ID consulted - d/c all abx, monitor WBC -CT chest: significant dec in size of pleural effusion, reexpansion of RU lung, partial expansion of R middle and RL lung. -F/u pleural fluid cultures, blood cx x 2 negative -Cont. Duoneb prn -Cont PT as tolerated 2. Dilated cardiomyopathy with severe LV systolic dysfunction -Supratherapeutic INR, coumadin held today -Monitor for therapeutic INR -Consulted cardiology - f/u outpatient CT surgeon -Cont digoxin, aldactone, Coreg, Lisinopril -MUGA scan: mod LV dysfunction w difusse hypokinessi LVEF 37% -Echo revealed no LV thrombus, EF 15% with dilated and severe systolic dys 3. Hypokalemia - stable - Repleted with KCl PO - cont to monitor via BMP 4. Left leg pain -Extremity US negative for DVT -Morphine 4q4 prn 5. Insulin dependent diabetes mellitus -Levemir 10 units -Humalog ISS as protocol 6. GI/DVT PPx -Protonix -Lovenox 7. Protein C Deficiency -HemeOnc on board -these results may be inaccurate given testing done while on coumadin Patient and plan was seen and discussed in detail with Dr. Haines. <Hernandez Haines - Last Filed: 03/23/17 14:45> Objective - Vital Signs/Intake and Output Vital Signs (last 24 hours): Temp Pulse Resp BP Pulse Ox 98.3 F 86 20 113/66 93 L 03/23/17 12:00 03/23/17 12:00 03/23/17 12:00 03/23/17 12:00 03/23/17 06:00 Intake and Output: 03/23/17 03/23/17 06:59 18:59 Intake Total 1920 Output Total 600 Balance 1320 - Medications Medications: Current Medications Acetaminophen (Tylenol 325mg Tab) 650 mg PO Q4H PRN PRN Reason: Fever >100.4 F Last Admin: 03/23/17 05:11 Dose: 650 mg Albuterol/Ipratropium (Duoneb 3 Mg/0.5 Mg (3 Ml) Ud) 3 ml IH Q2H PRN PRN Reason: Shortness of Breath Last Admin: 03/22/17 22:13 Dose: 3 ml Carvedilol (Coreg) 3.125 mg PO BID [facility] Last Admin: 03/23/17 09:25 Dose: 3.125 mg Digoxin (Lanoxin) 0.25 mg PO 1400 [facility] Last Admin: 03/22/17 14:20 Dose: 0.25 mg Furosemide (Lasix) 40 mg PO 0800,1400 [facility] Last Admin: 03/23/17 09:25 Dose: 40 mg Insulin Detemir (Levemir) 10 unit SC HS [facility] Last Admin: 03/22/17 21:58 Dose: 10 unit Insulin Human Lispro (Humalog High) 0 units SC ACHS [facility] PRN Reason: Protocol Last Admin: 03/23/17 07:38 Dose: Not Given Lisinopril (Zestril) 2.5 mg PO DAILY [facility] Last Admin: 03/23/17 09:25 Dose: 2.5 mg Ondansetron HCl (Zofran Inj) 4 mg IVP Q6H PRN PRN Reason: Nausea/Vomiting Last Admin: 03/22/17 10:04 Dose: 4 mg Pantoprazole Sodium (Protonix Ec Tab) 40 mg PO 0600,1630 [facility] Last Admin: 03/23/17 05:38 Dose: 40 mg Potassium Chloride (K-Dur 20 Meq Er Tab) 20 meq PO BRK [facility] Last Admin: 03/23/17 09:26 Dose: 20 meq Spironolactone (Aldactone) 25 mg PO BID [facility] Last Admin: 03/23/17 09:25 Dose: 25 mg Verapamil HCl (Calan Sr Tab) 120 mg PO DAILY [facility] Last Admin: 03/23/17 09:25 Dose: 120 mg Warfarin Sodium (Coumadin) 1 mg PO 1800 [facility] PRN Reason: Protocol Last Admin: 03/22/17 18:11 Dose: 1 mg - Labs Labs: 03/23/17 08:00 03/23/17 08:00 PT 37.9 Seconds (9.9-11.8) H* 03/23/17 06:45 INR 3.51 (0.93-1.08) H* 03/23/17 06:45 APTT 88.5 Seconds (23.7-30.8) H* 03/21/17 11:45 Attending/Attestation - Attestation I have personally seen and examined this patient.: Yes I have fully participated in the care of the patient.: Yes I have reviewed all pertinent clinical information, including history, physical exam and plan: Yes Notes (Text): 03/23/17 14:41 Attending note; Patient seen and examined with resident. Patient is a 46 year old female with past medical history of cardiac thrombus, dilated cardiomyopathy and diabetes who presented with sepsis and respiratory distress. She was found to have large right pleural effusion and supratherapeutic INR. She was seen by surgery and chest tube was placed. She was started on iv antibiotics. Her symptoms have improved and her chest tube was removed. Anti-biotics stopped. had an episode of vomiting this morning after po pills. repeat chest x-ray showed minimal right-sided effusion. Case discussed with Dr. Alicea surgery in detail. We will refer the patient to outpatient cardiothoracic surgery upon discharge. Repeat echocardiogram showed no cardiac thrombus was seen. INR is therapeutic. Hold Coumadin today. Cardiology evaluation with appreciated. Case discussed with Dr. Arrieta in detail. Continue LifeVest. Might need AICD if ejection fraction does not improve. Patient will follow-up with cardiology for further plan as outpatient. on lasix, coreg, digoxin, lisinopril, aldactone and verapamil. History of lupus; follow-up with rheumatology as outpatient. Currently hydroxychloroquine on hold. Patient follows up with Dr. eugene rheumatology. She is on levemir and insulin ss for diabetes. Needs to follow up with hematology Dr. Garcia for inherited hypercoagulable workup. PT evaluation appreciated. Out of bed to chair as tolerated. Upon discharge patient will follow-up with PMD Dr. Ben Yee and cardiology DR. Lofton. 03/23/17 14:44
[2017-03-23] MEDS: Digoxin 250 mcg (0.25 mg) Tab PO SCH (15:51)
[2017-03-23] MEDS ORDERED: Sodium Chloride 0.9% 500 ML IV STA (18:47)
--- NOTE | 2017-03-23 19:57 | CP.PCM.PN ---
Subjective - Date & Time of Evaluation Date of Evaluation: 03/23/17 Time of Evaluation: 18:00 - Subjective Subjective: No complaints. Objective - Vital Signs/Intake and Output Vital Signs (last 24 hours): Temp Pulse Resp BP Pulse Ox 98.8 F 69 20 84/56 L 93 L 03/23/17 18:00 03/23/17 18:00 03/23/17 18:00 03/23/17 18:07 03/23/17 06:00 Intake and Output: 03/23/17 03/24/17 18:59 06:59 Intake Total 500 Output Total 600 Balance -100 - Medications Medications: Current Medications Acetaminophen (Tylenol 325mg Tab) 650 mg PO Q4H PRN PRN Reason: Fever >100.4 F Last Admin: 03/23/17 18:02 Dose: 650 mg Albuterol/Ipratropium (Duoneb 3 Mg/0.5 Mg (3 Ml) Ud) 3 ml IH Q2H PRN PRN Reason: Shortness of Breath Last Admin: 03/22/17 22:13 Dose: 3 ml Carvedilol (Coreg) 3.125 mg PO BID [facility] Last Admin: 03/23/17 18:07 Dose: Not Given Digoxin (Lanoxin) 0.25 mg PO 1400 [facility] Last Admin: 03/23/17 15:51 Dose: 0.25 mg Furosemide (Lasix) 40 mg PO 0800,1400 [facility] Last Admin: 03/23/17 15:49 Dose: Not Given Insulin Detemir (Levemir) 10 unit SC HS [facility] Last Admin: 03/22/17 21:58 Dose: 10 unit Insulin Human Lispro (Humalog High) 0 units SC ACHS [facility] PRN Reason: Protocol Last Admin: 03/23/17 18:04 Dose: 2 units Lisinopril (Zestril) 2.5 mg PO DAILY [facility] Last Admin: 03/23/17 09:25 Dose: 2.5 mg Ondansetron HCl (Zofran Inj) 4 mg IVP Q6H PRN PRN Reason: Nausea/Vomiting Last Admin: 03/22/17 10:04 Dose: 4 mg Pantoprazole Sodium (Protonix Ec Tab) 40 mg PO 0600,1630 [facility] Last Admin: 03/23/17 18:04 Dose: 40 mg Potassium Chloride (K-Dur 20 Meq Er Tab) 20 meq PO BRK [facility] Last Admin: 03/23/17 09:26 Dose: 20 meq Spironolactone (Aldactone) 25 mg PO BID [facility] Last Admin: 03/23/17 18:07 Dose: Not Given Verapamil HCl (Calan Sr Tab) 120 mg PO DAILY [facility] Last Admin: 03/23/17 09:25 Dose: 120 mg Warfarin Sodium (Coumadin) 1 mg PO 1800 [facility] PRN Reason: Protocol Last Admin: 03/22/17 18:11 Dose: 1 mg - Labs Labs: 03/23/17 08:00 03/23/17 08:00 PT 37.9 Seconds (9.9-11.8) H* 03/23/17 06:45 INR 3.51 (0.93-1.08) H* 03/23/17 06:45 APTT 88.5 Seconds (23.7-30.8) H* 03/21/17 11:45 - Head Exam Head Exam: ATRAUMATIC - Eye Exam Eye Exam: Normal appearance - ENT Exam ENT Exam: Mucous Membranes Dry - Respiratory Exam Respiratory Exam: NORMAL BREATHING PATTERN - Cardiovascular Exam Cardiovascular Exam: +S1, +S2 - GI/Abdominal Exam GI & Abdominal Exam: Normal Bowel Sounds - Extremities Exam Extremities Exam: Pedal Edema - Neurological Exam Neurological Exam: Oriented x3 Assessment and Plan (1) Protein C deficiency Assessment & Plan: while on coumadin; may not be accurate Status: Acute (2) Mural thrombus of cardiac apex Assessment & Plan: on therapeutic anticoagulation Status: Acute (3) Coagulopathy Assessment & Plan: secondary to anticoagulation Status: Acute (4) Anemia Assessment & Plan: chronic disease Status: Acute (5) Leukocytosis Status: Acute
[2017-03-23] MEDS: Insulin Detemir 100 units/ml Vial (Levemir) SC SCH (22:02)
[2017-03-24 00:10] VITALS: O2SAT 100
[2017-03-24] MEDS: Pantoprazole 40 mg EC Tab PO SCH (05:56)
[2017-03-24 06:37] LABS: INR 3.33 (0.93-1.08)
[2017-03-24 06:41] LABS: BLOOD UREA NITROGEN 11 mg/dL (7-21); CALCIUM 9.6 mg/dL (8.4-10.5); GFR AFRICAN-AMERICAN > 60; GFR NON-AFRICAN AMERICAN > 60
[2017-03-24 07:41] LABS: BASO # 0.07 K/mm3 (0.0-2.0); BASO % 0.5 % (0.0-3.0); EOS # 0.3 (0.0-0.7); GRAN # 9.55 (1.4-6.5); GRAN % 65.6 % (50.0-68.0); HEMOGLOBIN 9.7 gm/dL (12.0-16.0); LYMPH # 3.5 (1.2-3.4); LYMPH % 23.8 % (22.0-35.0); MEAN CELL VOLUME 76.6 fL (80.0-105.0); MEAN CORPUSCULAR HEMOGLOBIN 24.2 pg (25.0-35.0); MEAN CORPUSCULAR HGB CONC 31.6 g/dl (31.0-37.0); MEAN PLATELET VOLUME 8.8 fl (7.0-11.0); MONO # 1.2 (0.1-0.6); MONO % 8.1 % (1.0-6.0); PLATELET COUNT 571 10^3/uL (120.0-450.0); RBC 4.01 10^6/uL (3.5-6.1); RED CELL DISTRIBUTION WIDTH 16.8 % (11.5-14.5); WHITE BLOOD COUNT 14.6 10^3/ul (4.5-11.0)
[2017-03-24] MEDS: Insulin Lispro (HUMAlog) HIGH Coverage SC SCH ×2 (07:53→12:26)
[2017-03-24] MEDS: Potassium Chloride 20 mEq ER Tab PO SCH (08:15)
--- NOTE | 2017-03-24 09:17 | PN ---
DATE: 03/23/2017 SUBJECTIVE: The patient is seen in bed in no acute distress, nontoxic, and no fevers. PHYSICAL EXAMINATION: VITAL SIGNS: Temperature 98, blood pressure is 100/60, respiratory rate is 20, heart rate of 93. HEENT: Unremarkable. NECK: Supple. CARDIOPULMONARY: Normal S1, S2. LUNGS: Decreased breath sounds. ABDOMEN: Soft, nontender. LABORATORY DATA: Reveals a white count of 15,800, hemoglobin of 9, and platelets of 534, creatinine is 0.8 and urinalysis is noted. No pleural fluid is noted. JAY screen is positive 1:320 with nucleolar pattern and urine Legionella antigen is negative and HIV is negative, microbiology reveals blood cultures no growth, no acid fast is seen on the pleural fluid. Review of orders, review of the patient to be on no antibiotics, Atiya Tabares's consultation from today is reviewed. ASSESSMENT AND PLAN: A 46-year-old female with status post right-sided healthcare associated pneumonia, status post chest tube placement post procedure day #8, now removed and the patient with systemic lupus erythematosus, morbid obesity with BMI 41 and diabetes mellitus and asthma, history of migraine and status post treatment for doxycycline and meropenem currently off of antibiotics, afebrile. The patient does have heart rate of 94 and white count of 15,800 and with persistent leukocytosis and systemic inflammatory response syndrome and continue patient's risk for developing nosocomial infections, we will continue to follow the patient closely. Osvaldo Dozier MD
[2017-03-24] MEDS: Verapamil 120 mg ER Tab PO SCH (10:35)
[2017-03-24 12:06] VITALS: BP 137/82; RESP 20; TEMP 97.5
--- NOTE | 2017-03-24 13:47 | PN ---
DATE: 03/23/2017 REASON FOR CONSULTATION: Cardiomyopathy, status post LifeVest, admitted with large plural effusion. BRIEF CLINICAL HISTORY: This is a 46-year-old morbidly obese female with past medical history of SLE, cardiomyopathy, nonobstructive coronary artery disease status post cardiac catheterization, nonischemic cardiomyopathy, LV thrombus in the past, admitted with large left pleural effusion, status post chest tube, now successfully chest tube is removed. The patient is on telemetry floor, feeling better. Denies any chest pain, shortness of breath, or any palpitation. PHYSICAL EXAMINATION: As follows: VITAL SIGNS: Temperature afebrile, heart rate 89, blood pressure 127/83. HEENT: PERRLA. Extraocular muscles intact. NECK: Supple. No carotid bruit or thyromegaly. CHEST: Clear to auscultation. HEART: S1 and S2, regular. ABDOMEN: Soft. EXTREMITIES: Clubbing and cyanosis negative. LABORATORY DATA: Blood workup as follows: WBC as of yesterday 16.4, hemoglobin 9.6, hematocrit 30.5, and platelet count 521. Today's H and H is pending. Chemistry yesterday shows sodium 135, potassium 4.1, chloride 97,CO2-25, anion gap of 11, BUN 15 creatinine 0.7. Coagulation profile: INR 3.51 today. IMPRESSION: History of left ventricular thrombus, decreased left ventricular function, ejection fraction 15%. Cardiomyopathy, recent MUGA scan was done that showed an ejection fraction of 37%, status post LifeVest, status post cardiac catheterization, nonobstructive coronary artery disease, status post large pleural effusion, status post chest tube and status post removal of chest tube. Repeat x-ray, PA and lateral, yesterday showed significantly decreased right-sided pleural effusion similar as of on 03/21/2017. Morbid obesity and history of systemic lupus erythematosus. RECOMMENDATION: Continue aspirin. Continue verapamil. Continue Coreg. Continue Digoxin. Continue lisinopril 2.5 mg. Continue Lasix 40 mg twice. Hold Coumadin today. INR is therapeutic. Possible discharge home today and the patient will be followed by Dr.Freddy Catherine upon discharge for evaluation for AICD in the long run as the patient is running low ejection fraction of 15% by echo. While the patient was on Primacor, ejection fraction by MUGA scan showed 37%. The patient will restart Entresto upon going home. I will discontinue lisinopril at home. Discussed with the patient in length. We will discuss with resident and Dr. Haines taking care of the patient. I will follow with you. Thank you Dr. Haines to provide this opportunity in taking care of the patient. Polina Brambila will follow today lab if pending. Today's lab is pending, we will follow. Colleen Allan MD cc: BRYCE
[2017-03-24] MEDS: Digoxin 250 mcg (0.25 mg) Tab PO SCH (14:58)
[2017-03-24 15:00] VITALS: PULSE 91
[2017-03-24 15:14] VITALS: PULSE 109
--- NOTE | 2017-03-24 18:17 | CP.PCM.DIS ---
<ТАТЬЯНА METCALF - Last Filed: 03/24/17 18:02> Provider - Provider Date of Admission: 03/14/17 21:57 Attending physician: Hernandez Haines MD Primary care physician: NO PRIMARY CARE PROVIDER Consults: Cardiology, infectious disease, surgery, hematology Time Spent in preparation of Discharge (in minutes): 45 Hospital Course - Lab Results Lab Results: Micro Results 03/23/17 11:00 Stool C. difficile Antigen & Toxin A,B (M - Final 03/17/17 07:00 Blood-Venous Blood Culture - Final NO GROWTH AFTER 5 DAYS 03/17/17 07:00 Blood-Venous Gram Stain - Final 03/17/17 06:50 Blood-Venous Blood Culture - Final NO GROWTH AFTER 5 DAYS 03/17/17 06:50 Blood-Venous Gram Stain - Final TEST NOT PERFORMED 03/18/17 14:50 Other: Please Indicate Mycobacterium Identification - Preliminary 03/15/17 16:39 Pleural Fluid Gram Stain - Final 03/15/17 16:39 Pleural Fluid Anaerobic Culture - Final NO ANAEROBES ISOLATED. 03/15/17 16:39 Pleural Fluid Body Fluid Culture - Final NO GROWTH AFTER 4 DAYS 03/15/17 16:39 Pleural Fluid Fungal Culture - Preliminary 03/14/17 22:00 Urine,Clean Catch Urine Culture - Final 10-50,000 CFU/ML. MULTIPLE SPECIES. PROBABLE CONTAMINATION. 03/15/17 01:15 Naris MRSA Culture (Admit) - Final MRSA NOT DETECTED Most Recent Lab Values WBC 14.6 10^3/ul (4.5-11.0) H 03/24/17 05:35 RBC 4.01 10^6/uL (3.5-6.1) 03/24/17 05:35 Hgb 9.7 gm/dL (12.0-16.0) L 03/24/17 05:35 Hct 30.7 % (36.0-48.0) L 03/24/17 05:35 MCV 76.6 fL (80.0-105.0) L 03/24/17 05:35 MCH 24.2 pg (25.0-35.0) L 03/24/17 05:35 MCHC 31.6 g/dl (31.0-37.0) 03/24/17 05:35 RDW 16.8 % (11.5-14.5) H 03/24/17 05:35 Plt Count 571 10^3/uL (120.0-450.0) H 03/24/17 05:35 MPV 8.8 fl (7.0-11.0) 03/24/17 05:35 Gran % 65.6 % (50.0-68.0) 03/24/17 05:35 Lymph % (Auto) 23.8 % (22.0-35.0) 03/24/17 05:35 Real % (Auto) 8.1 % (1.0-6.0) H 03/24/17 05:35 Eos % (Auto) 2.0 % (1.5-5.0) 03/24/17 05:35 Baso % (Auto) 0.5 % (0.0-3.0) 03/24/17 05:35 Gran # 9.55 (1.4-6.5) H 03/24/17 05:35 Lymph # 3.5 (1.2-3.4) H 03/24/17 05:35 Real # 1.2 (0.1-0.6) H 03/24/17 05:35 Eos # 0.3 (0.0-0.7) 03/24/17 05:35 Baso # 0.07 K/mm3 (0.0-2.0) 03/24/17 05:35 Neutrophils % (Manual) 86 % (50.0-70.0) H 03/14/17 21:10 Band Neutrophils % 1 % (0-2) 03/14/17 21:10 Lymphocytes % (Manual) 7 % (22.0-35.0) L 03/14/17 21:10 Monocytes % (Manual) 6 % (1.0-6.0) 03/14/17 21:10 Platelet Evaluation High (NORMAL) 03/14/17 21:10 Polychromasia Slight 03/14/17 21:10 Hypochromasia Slight 03/14/17 21:10 ESR 75 mm/hr (0.0-20.0) H 03/14/17 21:10 Retic Count 4.21 % (0.5-1.5) H 03/19/17 05:30 PT 36.0 Seconds (9.9-11.8) H* 03/24/17 05:35 INR 3.33 (0.93-1.08) H 03/24/17 05:35 APTT 88.5 Seconds (23.7-30.8) H* 03/21/17 11:45 Protein C Antigen 73 % (70-140) 03/15/17 18:05 Protein C Activity 48 % (70-180) L 03/15/17 18:05 Protein S Activity 16 % (60-140) L 03/15/17 18:05 Protein S Antigen 78 % (70-140) 03/15/17 18:05 Factor V see note 03/16/17 06:00 Factor V Activity 87 % (65-150) 03/15/17 18:05 pCO2 43 mm/Hg (35-45) 03/15/17 06:00 pO2 85.0 mm/Hg (80-100) 03/15/17 06:00 HCO3 26.0 mmol/L (21-28) 03/15/17 06:00 ABG pH 7.39 (7.35-7.45) 03/15/17 06:00 ABG Total CO2 27.3 mmol.L (22-28) 03/15/17 06:00 ABG O2 Saturation 99.2 % (95-98) H 03/15/17 06:00 ABG O2 Content 9.9 ML/dl (15-23) L 03/15/17 06:00 ABG Base Excess 0.9 mmol/L (-2.0-3.0) 03/15/17 06:00 ABG Hemoglobin 7.2 g/dL (11.7-17.4) L 03/15/17 06:00 ABG Carboxyhemoglobin 2.3 % (0.5-1.5) H 03/15/17 06:00 POC ABG HHb (Measured) 0.8 % (0-5) 03/15/17 06:00 ABG Methemoglobin 0.3 % (0.0-3.0) 03/15/17 06:00 ABG O2 Capacity 10.0 mL/dl (16-24) L 03/15/17 06:00 VBG pH 7.26 (7.32-7.43) L 03/15/17 00:00 VBG pCO2 59.0 (40-60) 03/15/17 00:00 VBG HCO3 26.5 mmol/l (21-28) 03/15/17 00:00 VBG Total CO2 28.3 mmol.L (22-28) H 03/15/17 00:00 VBG O2 Sat (Calc) 50.5 % (40-65) 03/15/17 00:00 VBG Base Excess -1.7 mmol/L (0.0-2.0) L 03/15/17 00:00 VBG Potassium 4.4 mmol/L (3.6-5.2) 03/15/17 00:00 Hgb O2 Saturation 96.6 % (95.0-98.0) 03/15/17 06:00 Sodium 135.0 mmol/L (132-148) 03/15/17 00:00 Chloride 103.0 mmol/L (98-107) 03/15/17 00:00 Glucose 378 mg/dl (65-105) H 03/15/17 00:00 Lactate 4.1 mmol/L (0.7-2.1) H* 03/15/17 00:00 FiO2 28.0 % 03/15/17 06:00 Sodium 137 mmol/L (132-148) 03/24/17 05:35 Potassium 4.1 mmol/L (3.6-5.0) 03/24/17 05:35 Chloride 98 mmol/L (98-107) 03/24/17 05:35 Carbon Dioxide 32 mmol/L (21-33) 03/24/17 05:35 Anion Gap 11 (10-20) 03/24/17 05:35 BUN 11 mg/dL (7-21) 03/24/17 05:35 Creatinine 0.8 mg/dL (0.5-1.4) 03/24/17 05:35 Est GFR ( Amer) > 60 03/24/17 05:35 Est GFR (Non-Af Amer) > 60 03/24/17 05:35 POC Glucose (mg/dL) 256 mg/dL (65-110) H 03/24/17 11:18 Random Glucose 132 mg/dL (70-110) H 03/24/17 05:35 Hemoglobin A1c 9.9 % (4.2-6.5) H 03/16/17 06:00 Lactic Acid 2.1 mmol/L (0.7-2.1) 03/16/17 17:13 Calcium 9.6 mg/dL (8.4-10.5) 03/24/17 05:35 Phosphorus 4.5 mg/dL (2.5-4.5) 03/24/17 05:35 Magnesium 1.8 mg/dL (1.7-2.2) 03/24/17 06:00 Ferritin 119.0 ng/mL 03/19/17 05:30 Total Bilirubin 1.3 mg/dL (0.2-1.3) 03/22/17 07:05 AST 52 U/L (15-39) H 03/22/17 07:05 ALT 32 U/L (7-56) 03/22/17 07:05 Alkaline Phosphatase 107 U/L (38-133) 03/22/17 07:05 Lactate Dehydrogenase 500 U/L (333-699) 03/14/17 21:10 Total Creatine Kinase 72 U/L (35-230) 03/15/17 22:00 Troponin I 0.03 ng/mL D 03/15/17 22:00 C-React Prot High Sens > 15.00 mg/L (1.00-3.00) H 03/14/17 21:10 NT-Pro-B Natriuret Pep 536 pg/mL (0-450) H 03/14/17 21:10 Total Protein 6.8 g/dL (5.8-8.3) 03/22/17 07:05 Albumin 3.2 g/dL (3.0-4.8) 03/22/17 07:05 Globulin 3.6 gm/dL 03/22/17 07:05 Albumin/Globulin Ratio 0.9 (1.1-1.8) L 03/22/17 07:05 Triglycerides 127 mg/dL (35-160) 03/16/17 06:00 Cholesterol 140 mg/dL (130-200) 03/16/17 06:00 LDL Cholesterol Direct 79 mg/dL (0-129) 03/16/17 06:00 HDL Cholesterol 28 mg/dL (29-60) L 03/16/17 06:00 Lipase 86 U/L (23-300) 03/14/17 21:10 Vitamin B12 608 pg/mL (239-931) 03/19/17 05:30 Folate 15.2 ng/mL 03/19/17 05:30 Procalcitonin 0.19 NG/ML (0.19-0.49) 03/17/17 06:50 TSH 3rd Generation 1.56 mIU/mL (0.46-4.68) 03/16/17 06:00 Venous Blood Potassium 4.4 mmol/L (3.6-5.2) 03/15/17 00:00 Urine Color Yellow (YELLOW) 03/14/17 22:00 Urine Appearance Sl cloudy (CLEAR) 03/14/17 22:00 Urine pH 6.0 (4.7-8.0) 03/14/17 22:00 Ur Specific [place] >= 1.030 (1.005-1.035) 03/14/17 22:00 Urine Protein 30 mg/dL (<30 mg/dL) H 03/14/17 22:00 Urine Glucose (UA) >=1000 mg/dL (NEGATIVE) 03/14/17 22:00 Urine Ketones 15 mg/dL (NEGATIVE) H 03/14/17 22:00 Urine Blood Large (NEGATIVE) H 03/14/17 22:00 Urine Nitrate Negative (NEGATIVE) 03/14/17 22:00 Urine Bilirubin Negative (NEGATIVE) 03/14/17 22:00 Urine Urobilinogen 0.2 E.U./dL (<1 E.U./dL) 03/14/17 22:00 Ur Leukocyte Esterase Trace Rafy/uL (NEGATIVE) H 03/14/17 22:00 Urine RBC Tntc /hpf (0-2) 03/14/17 22:00 Urine WBC 5 - 10 /hpf (0-6) 03/14/17 22:00 Ur Epithelial Cells Many /hpf (0-5) 03/14/17 22:00 Urine Bacteria Few (NEG) 03/14/17 22:00 Urine HCG, Qual Negative (NEGATIVE) 03/20/17 21:45 Fluid Source Pleural/thoracentesi 03/15/17 16:22 Fluid Appearance Bloody (CLEAR) 03/15/17 16:22 Fluid WBC 6600.0 /uL (0.0-300.0) H 03/15/17 16:22 Fluid RBC 9909970.0 /uL (0.0-0.0) H 03/15/17 16:22 Fluid Tot Cell Count 100 (0-0) H 03/15/17 16:22 Fluid Neutrophils 61.4 % (0-0) H 03/15/17 16:22 Fluid Lymphocytes 38.6 % (0-0) H 03/15/17 16:22 Fld Monocyte/Macrophag 0 % (0-0) 03/15/17 16:22 Fluid Comment TEST NOT PERFORMED 03/15/17 16:22 Pleural pH 7.0 03/15/17 16:39 Pleural Total Protein TNP 03/15/17 16:43 Pleural LDH TNP 03/15/17 16:43 Rheumatoid Factor TNP 03/15/17 18:05 JAY Screen TNP 03/15/17 18:05 JAY Titer TNP 03/15/17 18:05 JAY Titer 2 TEST NOT PERFORMED 03/15/17 18:05 JAY Pattern TNP 03/15/17 18:05 JAY Pattern 2 TEST NOT PERFORMED 03/15/17 18:05 ANCA Screen Negative (NEGATIVE) 03/15/17 18:05 c-ANCA Titer TNP 03/15/17 18:05 Proteinase 3 (PR3) <1.0 AI (<1.0) 03/15/17 18:05 p-ANCA Titer TNP 03/15/17 18:05 Atypical p-ANCA Titer TNP 03/15/17 18:05 Myeloperoxidase Ab <1.0 AI (<1.0) 03/15/17 18:05 SS-A Antibody TNP 03/15/17 18:05 SS-B Ab Interp Negative (Negative) 03/15/17 18:05 SS-B Antibody TNP 03/15/17 18:05 SS-B Ab Interp Negative (Negative) 03/15/17 18:05 Sm (Quijano) Antibody TNP 03/15/17 18:05 SM/DATA PROCESSOR Antibody TNP 03/15/17 18:05 Scl-70 Antibody TNP 03/15/17 18:05 Double Strand DNA Ab <1 IU/mL 03/15/17 18:05 Anti-ds DNA Titer (Crith) TNP 03/15/17 18:05 Anti-ds DNA (Crithidia) TNP 03/15/17 18:05 Ribosomal P Prot Ab TNP 03/15/17 18:05 Anti-Mitochondrial Titr TNP 03/15/17 18:05 Anti-Mitochondrial Ab Negative (Negative) 03/23/17 07:00 [id number]-[id number] Ab <9 MOUNA (<=20) 03/15/17 18:05 Beta-2 GPI IgG Ab <9 SGU (<=20) 03/15/17 18:05 Beta-2 GPI IgM Ab <9 SMU (<=20) 03/15/17 18:05 Actin IgG Antibody TNP 03/15/17 18:05 Striated Muscle Ab TNP 03/15/17 18:05 Myocardial Ab Titer TNP 03/15/17 18:05 Anti-Myocardial Ab TNP 03/15/17 18:05 Reticulin Ab Titer TNP 03/15/17 18:05 Reticulin IgA Antibody TNP 03/15/17 18:05 Thyroperoxidase Ab TNP 03/15/17 18:05 Anti-Parietal Cell Ab TNP 03/15/17 18:05 Phosphatidylserine IgG <10 U/mL (<10) 03/15/17 18:05 Phosphatidylserine IgA <20 U/mL (<20) 03/15/17 18:05 Phosphatidylserine IgM <25 U/mL (<25) 03/15/17 18:05 Anti-Phospholipid Intrp see note 03/15/17 18:05 Anti-Cardiolipin IgG Ab <14 GPL (<=14) 03/15/17 18:05 Anti-Cardiolipin IgA Ab <11 APL (<=11) 03/15/17 18:05 Anti-Cardiolipin IgM Ab <12 MPL (<=12) 03/15/17 18:05 Complement C3 TNP 03/15/17 18:05 Complement C4 TNP 03/15/17 18:05 HIV 1&2 Ag/Ab, 4th Gen Nonreactive (Nonreactive) 03/16/17 10:14 Ur L.pneumophila Ag Negative (NEGATIVE) 03/20/17 21:45 Prothrombin Mut Interp see note 03/19/17 05:30 Prothrombin Gene Mutate see note 03/19/17 05:30 Prothromb Gene Review see note 03/19/17 05:30 Blood Type B POSITIVE 03/15/17 01:45 Antibody Screen Negative 03/15/17 01:45 Crossmatch See Detail 03/15/17 01:45 BBK History Checked Patient has bt 07/05/17 01:45 - Hospital Course Hospital Course: Ms. Qiu is a 46 y/o AA female with a PMHx significant for HTN, IDDM, and severe dilated cardiomyopathy with CHF and LV thrombus, who presented with a c/ o SOB and a 3 day duration of LLE pain. Patient stated that she woke up 3 days ago with a throbbing pain from her L ankle into her left half and up the back of her knee. Patient denied erythema, edema, or swelling. Patient also complained of a cough with blood tinged sputum and mild shortness of breath of one day duration. Patient stated that she has never had an episode like this before. When Ms. Qiu was examined, she admitted to fevers, chills, nausea and hematemesis (once on 03/13), but denied chills, headache, dizziness, abdominal pain, CP, diarrhea, complaints or any other symptoms. In the ED, basic labs, imaging, and EKG were ordered. WBC was 20.6, Hgb 8, supratherapeutic INR >11. CXR showed large right pleural effusion. Pt was admitted to the ICU for evaluation of right pleural effusion and SOB. Surgery consulted placed R chest tube drain large pleural effusion. Infectious disease was consulted for antibiotic recommendations. Cardiology consulted and recommended echocardiogram, which showed EF 15%. Cardiology recommended anticoagulation when chest tube is removed. MUGA scan showed EF of 37% with diffuse hypokinesis. CT removed, serial CXR showed no evidence of pneumothorax. Hematology was consulted for Protein C and S deficiency, recommendations appreciated. Pt with positive JAY. Pt to be discharged with home health and continued on coumadin 1 mg. Today pt was seen and examined at bedside. Pt denied any acute overnight events. Pt denied n/v/f, CP, SOB, chills, or abdominal pain. Discharge Exam - Head Exam Head Exam: NORMOCEPHALIC - Eye Exam Eye Exam: EOMI, PERRL - ENT Exam ENT Exam: Mucous Membranes Moist - Neck Exam Neck exam: Full Rom - Respiratory Exam Respiratory Exam: Clear to PA & Lateral. absent: Rales, Rhonchi, Wheezes - Cardiovascular Exam Cardiovascular Exam: RRR, +S1, +S2. absent: Diastolic murmur, Gallop, Rubs, Systolic Murmur - GI/Abdominal Exam GI & Abdominal Exam: Soft. absent: Distended, Guarding, Rebound, Tenderness - Extremities Exam Extremities exam: full ROM - Neurological Exam Neurological exam: Alert, Oriented x3 - Psychiatric Exam Psychiatric exam: Normal Affect - Skin Skin Exam: Dry, Intact, Normal Color, Warm Discharge Plan - Discharge Medications Prescriptions: Carvedilol [Coreg] 3.125 mg PO BID #60 tab Digoxin [Lanoxin] 0.25 mg PO 1400 #30 tab Furosemide [Lasix] 40 mg PO DAILY #30 tab Sacubitril/Valsartan [Entresto 24 mg-26 mg Tablet] 1 each PO BID #60 Spironolactone [Aldactone] 25 mg PO BID #60 tab Warfarin [Coumadin] 1 mg PO 1800 #5 tab - Follow Up Plan Condition: CRITICAL Disposition: HOME/ ROUTINE Instructions: Heart Healthy Diet (DC), Lupus Erythematosus (DC), Sepsis (GEN), Wearable Cardioverter Defibrillator (DC) Additional Instructions: -Start Coumadin 1mg by mouth daily on Monday03/26/17, check INR blood work in one week (04/01/17) -Take medications as prescribed -Follow up with rheumatology within 2-3 days -Follow up with Dr. Radford, cardiothoracic surgery ([phone]) within 2-3 days -Follow up with PMD within 2-3 days -Follow up with outpatient PT -Follow up with home health -Return to local ED if symptoms worsen Referrals: Percy Garcia MD [Staff Provider] - Ben Yee DO [Staff Provider] - Kapil Catherine MD [Medical Doctor] - BORIS,CHARITO [Primary Care Provider] - Gianfranco Radford MD [Medical Doctor] - Jay Elkins MD [Medical Doctor] - <Hernandez Haines - Last Filed: 03/26/17 13:17> Provider - Provider Date of Admission: 03/14/17 21:57 Attending physician: Hernandez Haines MD Primary care physician: CHARITO PRIMARY CARE PROVIDER Hospital Course - Lab Results Lab Results: Micro Results 03/23/17 11:00 Stool C. difficile Antigen & Toxin A,B (M - Final 03/17/17 07:00 Blood-Venous Blood Culture - Final NO GROWTH AFTER 5 DAYS 03/17/17 07:00 Blood-Venous Gram Stain - Final 03/17/17 06:50 Blood-Venous Blood Culture - Final NO GROWTH AFTER 5 DAYS 03/17/17 06:50 Blood-Venous Gram Stain - Final TEST NOT PERFORMED 03/18/17 14:50 Other: Please Indicate Mycobacterium Identification - Preliminary 03/15/17 16:39 Pleural Fluid Gram Stain - Final 03/15/17 16:39 Pleural Fluid Anaerobic Culture - Final NO ANAEROBES ISOLATED. 03/15/17 16:39 Pleural Fluid Body Fluid Culture - Final NO GROWTH AFTER 4 DAYS 03/15/17 16:39 Pleural Fluid Fungal Culture - Preliminary 03/14/17 22:00 Urine,Clean Catch Urine Culture - Final 10-50,000 CFU/ML. MULTIPLE SPECIES. PROBABLE CONTAMINATION. 03/15/17 01:15 Naris MRSA Culture (Admit) - Final MRSA NOT DETECTED Most Recent Lab Values WBC 14.6 10^3/ul (4.5-11.0) H 03/24/17 05:35 RBC 4.01 10^6/uL (3.5-6.1) 03/24/17 05:35 Hgb 9.7 gm/dL (12.0-16.0) L 03/24/17 05:35 Hct 30.7 % (36.0-48.0) L 03/24/17 05:35 MCV 76.6 fL (80.0-105.0) L 03/24/17 05:35 MCH 24.2 pg (25.0-35.0) L 03/24/17 05:35 MCHC 31.6 g/dl (31.0-37.0) 03/24/17 05:35 RDW 16.8 % (11.5-14.5) H 03/24/17 05:35 Plt Count 571 10^3/uL (120.0-450.0) H 03/24/17 05:35 MPV 8.8 fl (7.0-11.0) 03/24/17 05:35 Gran % 65.6 % (50.0-68.0) 03/24/17 05:35 Lymph % (Auto) 23.8 % (22.0-35.0) 03/24/17 05:35 Real % (Auto) 8.1 % (1.0-6.0) H 03/24/17 05:35 Eos % (Auto) 2.0 % (1.5-5.0) 03/24/17 05:35 Baso % (Auto) 0.5 % (0.0-3.0) 03/24/17 05:35 Gran # 9.55 (1.4-6.5) H 03/24/17 05:35 Lymph # 3.5 (1.2-3.4) H 03/24/17 05:35 Real # 1.2 (0.1-0.6) H 03/24/17 05:35 Eos # 0.3 (0.0-0.7) 03/24/17 05:35 Baso # 0.07 K/mm3 (0.0-2.0) 03/24/17 05:35 Neutrophils % (Manual) 86 % (50.0-70.0) H 03/14/17 21:10 Band Neutrophils % 1 % (0-2) 03/14/17 21:10 Lymphocytes % (Manual) 7 % (22.0-35.0) L 03/14/17 21:10 Monocytes % (Manual) 6 % (1.0-6.0) 03/14/17 21:10 Platelet Evaluation High (NORMAL) 03/14/17 21:10 Polychromasia Slight 03/14/17 21:10 Hypochromasia Slight 03/14/17 21:10 ESR 75 mm/hr (0.0-20.0) H 03/14/17 21:10 Retic Count 4.21 % (0.5-1.5) H 03/19/17 05:30 PT 36.0 Seconds (9.9-11.8) H* 03/24/17 05:35 INR 3.33 (0.93-1.08) H 03/24/17 05:35 APTT 88.5 Seconds (23.7-30.8) H* 03/21/17 11:45 Protein C Antigen 73 % (70-140) 03/15/17 18:05 Protein C Activity 48 % (70-180) L 03/15/17 18:05 Protein S Activity 16 % (60-140) L 03/15/17 18:05 Protein S Antigen 78 % (70-140) 03/15/17 18:05 Factor V see note 03/16/17 06:00 Factor V Activity 87 % (65-150) 03/15/17 18:05 pCO2 43 mm/Hg (35-45) 03/15/17 06:00 pO2 85.0 mm/Hg (80-100) 03/15/17 06:00 HCO3 26.0 mmol/L (21-28) 03/15/17 06:00 ABG pH 7.39 (7.35-7.45) 03/15/17 06:00 ABG Total CO2 27.3 mmol.L (22-28) 03/15/17 06:00 ABG O2 Saturation 99.2 % (95-98) H 03/15/17 06:00 ABG O2 Content 9.9 ML/dl (15-23) L 03/15/17 06:00 ABG Base Excess 0.9 mmol/L (-2.0-3.0) 03/15/17 06:00 ABG Hemoglobin 7.2 g/dL (11.7-17.4) L 03/15/17 06:00 ABG Carboxyhemoglobin 2.3 % (0.5-1.5) H 03/15/17 06:00 POC ABG HHb (Measured) 0.8 % (0-5) 03/15/17 06:00 ABG Methemoglobin 0.3 % (0.0-3.0) 03/15/17 06:00 ABG O2 Capacity 10.0 mL/dl (16-24) L 03/15/17 06:00 VBG pH 7.26 (7.32-7.43) L 03/15/17 00:00 VBG pCO2 59.0 (40-60) 03/15/17 00:00 VBG HCO3 26.5 mmol/l (21-28) 03/15/17 00:00 VBG Total CO2 28.3 mmol.L (22-28) H 03/15/17 00:00 VBG O2 Sat (Calc) 50.5 % (40-65) 03/15/17 00:00 VBG Base Excess -1.7 mmol/L (0.0-2.0) L 03/15/17 00:00 VBG Potassium 4.4 mmol/L (3.6-5.2) 03/15/17 00:00 Hgb O2 Saturation 96.6 % (95.0-98.0) 03/15/17 06:00 Sodium 135.0 mmol/L (132-148) 03/15/17 00:00 Chloride 103.0 mmol/L (98-107) 03/15/17 00:00 Glucose 378 mg/dl (65-105) H 03/15/17 00:00 Lactate 4.1 mmol/L (0.7-2.1) H* 03/15/17 00:00 FiO2 28.0 % 03/15/17 06:00 Sodium 137 mmol/L (132-148) 03/24/17 05:35 Potassium 4.1 mmol/L (3.6-5.0) 03/24/17 05:35 Chloride 98 mmol/L (98-107) 03/24/17 05:35 Carbon Dioxide 32 mmol/L (21-33) 03/24/17 05:35 Anion Gap 11 (10-20) 03/24/17 05:35 BUN 11 mg/dL (7-21) 03/24/17 05:35 Creatinine 0.8 mg/dL (0.5-1.4) 03/24/17 05:35 Est GFR ( Amer) > 60 03/24/17 05:35 Est GFR (Non-Af Amer) > 60 03/24/17 05:35 POC Glucose (mg/dL) 256 mg/dL (65-110) H 03/24/17 11:18 Random Glucose 132 mg/dL (70-110) H 03/24/17 05:35 Hemoglobin A1c 9.9 % (4.2-6.5) H 03/16/17 06:00 Lactic Acid 2.1 mmol/L (0.7-2.1) 03/16/17 17:13 Calcium 9.6 mg/dL (8.4-10.5) 03/24/17 05:35 Phosphorus 4.5 mg/dL (2.5-4.5) 03/24/17 05:35 Magnesium 1.8 mg/dL (1.7-2.2) 03/24/17 06:00 Ferritin 119.0 ng/mL 03/19/17 05:30 Total Bilirubin 1.3 mg/dL (0.2-1.3) 03/22/17 07:05 AST 52 U/L (15-39) H 03/22/17 07:05 ALT 32 U/L (7-56) 03/22/17 07:05 Alkaline Phosphatase 107 U/L (38-133) 03/22/17 07:05 Lactate Dehydrogenase 500 U/L (333-699) 03/14/17 21:10 Total Creatine Kinase 72 U/L (35-230) 03/15/17 22:00 Troponin I 0.03 ng/mL D 03/15/17 22:00 C-React Prot High Sens > 15.00 mg/L (1.00-3.00) H 03/14/17 21:10 NT-Pro-B Natriuret Pep 536 pg/mL (0-450) H 03/14/17 21:10 Total Protein 6.8 g/dL (5.8-8.3) 03/22/17 07:05 Albumin 3.2 g/dL (3.0-4.8) 03/22/17 07:05 Globulin 3.6 gm/dL 03/22/17 07:05 Albumin/Globulin Ratio 0.9 (1.1-1.8) L 03/22/17 07:05 Triglycerides 127 mg/dL (35-160) 03/16/17 06:00 Cholesterol 140 mg/dL (130-200) 03/16/17 06:00 LDL Cholesterol Direct 79 mg/dL (0-129) 03/16/17 06:00 HDL Cholesterol 28 mg/dL (29-60) L 03/16/17 06:00 Lipase 86 U/L (23-300) 03/14/17 21:10 Vitamin B12 608 pg/mL (239-931) 03/19/17 05:30 Folate 15.2 ng/mL 03/19/17 05:30 Procalcitonin 0.19 NG/ML (0.19-0.49) 03/17/17 06:50 TSH 3rd Generation 1.56 mIU/mL (0.46-4.68) 03/16/17 06:00 Venous Blood Potassium 4.4 mmol/L (3.6-5.2) 03/15/17 00:00 Urine Color Yellow (YELLOW) 03/14/17 22:00 Urine Appearance Sl cloudy (CLEAR) 03/14/17 22:00 Urine pH 6.0 (4.7-8.0) 03/14/17 22:00 Ur Specific [place] >= 1.030 (1.005-1.035) 03/14/17 22:00 Urine Protein 30 mg/dL (<30 mg/dL) H 03/14/17 22:00 Urine Glucose (UA) >=1000 mg/dL (NEGATIVE) 03/14/17 22:00 Urine Ketones 15 mg/dL (NEGATIVE) H 03/14/17 22:00 Urine Blood Large (NEGATIVE) H 03/14/17 22:00 Urine Nitrate Negative (NEGATIVE) 03/14/17 22:00 Urine Bilirubin Negative (NEGATIVE) 03/14/17 22:00 Urine Urobilinogen 0.2 E.U./dL (<1 E.U./dL) 03/14/17 22:00 Ur Leukocyte Esterase Trace Rafy/uL (NEGATIVE) H 03/14/17 22:00 Urine RBC Tntc /hpf (0-2) 03/14/17 22:00 Urine WBC 5 - 10 /hpf (0-6) 03/14/17 22:00 Ur Epithelial Cells Many /hpf (0-5) 03/14/17 22:00 Urine Bacteria Few (NEG) 03/14/17 22:00 Urine HCG, Qual Negative (NEGATIVE) 03/20/17 21:45 Fluid Source Pleural/thoracentesi 03/15/17 16:22 Fluid Appearance Bloody (CLEAR) 03/15/17 16:22 Fluid WBC 6600.0 /uL (0.0-300.0) H 03/15/17 16:22 Fluid RBC 1677777.0 /uL (0.0-0.0) H 03/15/17 16:22 Fluid Tot Cell Count 100 (0-0) H 03/15/17 16:22 Fluid Neutrophils 61.4 % (0-0) H 03/15/17 16:22 Fluid Lymphocytes 38.6 % (0-0) H 03/15/17 16:22 Fld Monocyte/Macrophag 0 % (0-0) 03/15/17 16:22 Fluid Comment TEST NOT PERFORMED 03/15/17 16:22 Pleural pH 7.0 03/15/17 16:39 Pleural Total Protein TNP 03/15/17 16:43 Pleural LDH TNP 03/15/17 16:43 Rheumatoid Factor TNP 03/15/17 18:05 JAY Screen TNP 03/15/17 18:05 JAY Titer TNP 03/15/17 18:05 JAY Titer 2 TEST NOT PERFORMED 03/15/17 18:05 JAY Pattern TNP 03/15/17 18:05 JAY Pattern 2 TEST NOT PERFORMED 03/15/17 18:05 ANCA Screen Negative (NEGATIVE) 03/15/17 18:05 c-ANCA Titer TNP 03/15/17 18:05 Proteinase 3 (PR3) <1.0 AI (<1.0) 03/15/17 18:05 p-ANCA Titer TNP 03/15/17 18:05 Atypical p-ANCA Titer TNP 03/15/17 18:05 Myeloperoxidase Ab <1.0 AI (<1.0) 03/15/17 18:05 SS-A Antibody TNP 03/15/17 18:05 SS-B Ab Interp Negative (Negative) 03/15/17 18:05 SS-B Antibody TNP 03/15/17 18:05 SS-B Ab Interp Negative (Negative) 03/15/17 18:05 Sm (Quijano) Antibody TNP 03/15/17 18:05 Sm (Quijano) Antibody <1.0 AI (<1.0) 03/23/17 07:00 Anti-Quijano Interpret Negative (Negative) 03/23/17 07:00 SM/DATA PROCESSOR Antibody TNP 03/15/17 18:05 Scl-70 Antibody TNP 03/15/17 18:05 Double Strand DNA Ab <1 IU/mL 03/15/17 18:05 Anti-ds DNA Titer (Crith) TNP 03/15/17 18:05 Anti-ds DNA (Crithidia) TNP 03/15/17 18:05 Ribosomal P Prot Ab TNP 03/15/17 18:05 Anti-Mitochondrial Titr TNP 03/15/17 18:05 Anti-Mitochondrial Ab Negative (Negative) 03/23/17 07:00 [id number] Ab <9 MOUNA (<=20) 03/15/17 18:05 Beta-2 GPI IgG Ab <9 SGU (<=20) 03/15/17 18:05 Beta-2 GPI IgM Ab <9 SMU (<=20) 03/15/17 18:05 Actin IgG Antibody TNP 03/15/17 18:05 Striated Muscle Ab TNP 03/15/17 18:05 Myocardial Ab Titer TNP 03/15/17 18:05 Anti-Myocardial Ab TNP 03/15/17 18:05 Reticulin Ab Titer TNP 03/15/17 18:05 Reticulin IgA Antibody TNP 03/15/17 18:05 Thyroperoxidase Ab TNP 03/15/17 18:05 Anti-Parietal Cell Ab TNP 03/15/17 18:05 Phosphatidylserine IgG <10 U/mL (<10) 03/15/17 18:05 Phosphatidylserine IgA <20 U/mL (<20) 03/15/17 18:05 Phosphatidylserine IgM <25 U/mL (<25) 03/15/17 18:05 Anti-Phospholipid Intrp see note 03/15/17 18:05 Anti-Cardiolipin IgG Ab <14 GPL (<=14) 03/15/17 18:05 Anti-Cardiolipin IgA Ab <11 APL (<=11) 03/15/17 18:05 Anti-Cardiolipin IgM Ab <12 MPL (<=12) 03/15/17 18:05 Complement C3 TNP 03/15/17 18:05 Complement C4 TNP 03/15/17 18:05 HIV 1&2 Ag/Ab, 4th Gen Nonreactive (Nonreactive) 03/16/17 10:14 Ur L.pneumophila Ag Negative (NEGATIVE) 03/20/17 21:45 Prothrombin Mut Interp see note 03/19/17 05:30 Prothrombin Gene Mutate see note 03/19/17 05:30 Prothromb Gene Review see note 03/19/17 05:30 Blood Type B POSITIVE 03/15/17 01:45 Antibody Screen Negative 03/15/17 01:45 Crossmatch See Detail 03/15/17 01:45 BBK History Checked Patient has bt 03/15/17 01:45 Attending/Attestation - Attestation I have personally seen and examined this patient.: Yes I have fully participated in the care of the patient.: Yes I have reviewed all pertinent clinical information, including history, physical exam and plan: Yes Notes (Text): 03/26/17 13:15 Attending note; Patient seen and examined with resident. Patient is a 46 year old female with past medical history of cardiac thrombus, dilated cardiomyopathy and diabetes who presented with sepsis and respiratory distress. She was found to have large right pleural effusion and supratherapeutic INR. She was seen by surgery and chest tube was placed. She was started on iv antibiotics. Her symptoms have improved and her chest tube was removed. Anti-biotics stopped. repeat chest x-ray showed minimal right-sided effusion. Case discussed with Dr. Alicea surgery in detail. We will refer the patient to outpatient cardiothoracic surgery upon discharge. Repeat echocardiogram showed no cardiac thrombus was seen. INR is therapeutic. started 1 mg of Coumadin on Monday. Monitor INR closely. Cardiology evaluation with appreciated. Case discussed with Dr. Arrieta in detail. Continue LifeVest. Might need AICD if ejection fraction does not improve. Patient will follow-up with cardiology for further plan as outpatient. on lasix, coreg, digoxin, cardizem, aldactone and entrsto. History of lupus; follow-up with rheumatology as outpatient. Currently hydroxychloroquine on hold. Patient follows up with Dr. eugene rheumatology. She is on levemir and insulin ss for diabetes. Needs to follow up with hematology Dr. Garcia for inherited hypercoagulable workup. PT evaluation appreciated. home Services arranged. Patient is advised to complete Medicaid paperwork for further services. Upon discharge patient will follow-up with PMD Dr. Ben Yee and cardiology DR. Lofton. diagnosis; Cardiomyopathy Cardiac thrombus Status post LifeVest Pleural effusion/hemothorax s/p chest tube removal Lupus Diabetes Obesity
--- NOTE | 2017-03-24 22:02 | PN ---
REASON FOR THE CONSULTATION: Followup of cardiomyopathy, pleural effusion, on LifeVest, status post chest tube. BRIEF CLINICAL HISTORY: This is a 46-year-old morbidly obese female with past medical history significant for cardiomyopathy, nonischemic; a history of LV thrombus; admitted at this time with large right pleural effusion, status post chest tube, was drained. The patient was treated with IV Primacor, improved and on MUGA scan, was found to have an ejection fraction of 37%. The patient was on Coumadin at home, but had supratherapeutic INR, discontinued heparin and started later on, Coumadin started today, INR is 3.3. Denies any chest pain, shortness of breath, or any palpitation. PHYSICAL EXAMINATION: As follows; VITAL SIGNS: Temperature afebrile, heart rate 96, blood pressure 106/73. HEENT: PERRLA. Extraocular muscles intact. NECK: Supple. No carotid bruit, thyromegaly. CHEST: Clear to auscultation. HEART: S1 and S2, regular. ABDOMEN: Soft. EXTREMITIES: Clubbing and cyanosis negative. BLOOD WORKUP: As follows: WBC is 14.6, hemoglobin 9.7, hematocrit 30.7, platelet count 571. Chemistry showed sodium 132, potassium 4.1, chloride 98, carbon dioxide 32, anion gap of 11, BUN 11, creatinine 0.8, INR is 3.33. IMPRESSION: A 46-year-old morbidly obese female with past medical history significant for non-ST elevation myocardial infarction, cardiomyopathy, status post cardiac catheterization, nonobstructive coronary artery disease, history of left ventricular thrombus, was on Coumadin; admitted here with large right pleural effusion, status post chest tube. Now a repeat echo did not show any thrombus. A MUGA scan was done, it shows ejection fraction 37% while the patient was on Primacor. The patient started digoxin, Coreg, EITAN inhibitor, lisinopril, diuretic and Coumadin was restarted, one dose has been given at 10 mg and INR went to 3.32, then 1 mg of Coumadin was given and still INR is at 3.33. PLAN: To hold Coumadin; restart when the INR goes below 2.5. Discussed with the patient at length, the patient is going to be following Dr. Kapil Catherine, now currently wearing the LifeVest and needs to be reevaluated in three months for AICD, which Dr. Catherine is going to reevaluate. For the time being, continue digoxin, diuretic, EITAN inhibitor, Coreg. The patient as at home Entresto, so when the patient goes home, we will discharge without lisinopril and we will restart Entresto. Discussed with the patient, discussed with the nursing staff taking care, discussed with Dr. Haines. Thank you Dr. Haines to provide us opportunity in taking care of the patient, Patty Fish. The patient's lot of questions were answered. The patient states that she understood and upon discharge, will be followed up with Dr. Catherine for the blood workup as well. cc: Hernandez Haines MD
== END 2017-03-24 17:00 | disposition home or self-care (01) | DRG 871 ==
LOC: ED 20:23 → ERH 21:57 → CCU 03-15 01:20 → 2RNO 03-21 18:31
PROVIDERS: ADMIT Internal Medicine; ATTEND Internal Medicine
PROC: 0W9930Z Drainage of Right Pleural Cavity with Drainage Device, Percutaneous Approach (ICD-10-PCS; principal; 2017-03-15)
PROC: 5A09357 Assistance with Respiratory Ventilation, Less than 24 Consecutive Hours, Continuous Positive Airway Pressure (ICD-10-PCS; 2017-03-15)
PROC: 30233K1 Transfusion of Nonautologous Frozen Plasma into Peripheral Vein, Percutaneous Approach (ICD-10-PCS; 2017-03-15)
PROC: 30233N1 Transfusion of Nonautologous Red Blood Cells into Peripheral Vein, Percutaneous Approach (ICD-10-PCS; 2017-03-15)
DX: A41.9 Sepsis, unspecified organism (principal); J18.9 Pneumonia, unspecified organism; I50.23 Acute on chronic systolic (congestive) heart failure; J90 Pleural effusion, not elsewhere classified; I42.0 Dilated cardiomyopathy; D68.59 Other primary thrombophilia; T81.89XA Other complications of procedures, not elsewhere classified, initial encounter; J94.2 Hemothorax; Z68.41 Body mass index [BMI] 40.0-44.9, adult; I11.0 Hypertensive heart disease with heart failure; Z95.811 Presence of heart assist device; I27.2 Other secondary pulmonary hypertension; M32.9 Systemic lupus erythematosus, unspecified; E11.9 Type 2 diabetes mellitus without complications; M48.00 Spinal stenosis, site unspecified; J45.909 Unspecified asthma, uncomplicated; E78.5 Hyperlipidemia, unspecified; G43.909 Migraine, unspecified, not intractable, without status migrainosus; K21.9 Gastro-esophageal reflux disease without esophagitis; E66.01 Morbid (severe) obesity due to excess calories; I51.3 Intracardiac thrombosis, not elsewhere classified; I25.10 Atherosclerotic heart disease of native coronary artery without angina pectoris; D64.9 Anemia, unspecified; M79.605 Pain in left leg; E87.6 Hypokalemia; Y83.8 Other surgical procedures as the cause of abnormal reaction of the patient, or of later complication, without mention of misadventure at the time of the procedure; Z79.4 Long term (current) use of insulin; Z79.01 Long term (current) use of anticoagulants; Z87.59 Personal history of other complications of pregnancy, childbirth and the puerperium

== ENCOUNTER 2017-10-04 14:26 | Emergency (ER) | payer MEDICARE ==
[2017-10-04 14:26] VITALS: PULSE 91; BMI 40.7
[2017-10-04 14:41] VITALS: TEMP 98.4
[2017-10-04] MEDS ORDERED: Sodium Chloride 0.9% 1,000 ML IV SCH (15:15)
[2017-10-04 15:57] LABS: BASO # 0.02 K/mm3 (0.0-2.0); BASO % 0.2 % (0.0-3.0); EOS # 0.1 (0.0-0.7); EOS % 0.7 % (1.5-5.0); GRAN # 6.76 (1.4-6.5); GRAN % 61.6 % (50.0-68.0); LYMPH # 3.5 (1.2-3.4); LYMPH % 31.9 % (22.0-35.0); MEAN CORPUSCULAR HEMOGLOBIN 25.7 pg (25.0-35.0); MEAN CORPUSCULAR HGB CONC 31.8 g/dl (31.0-37.0); MEAN PLATELET VOLUME 10.1 fl (7.0-11.0); MONO # 0.6 (0.1-0.6); MONO % 5.6 % (1.0-6.0); RBC 5.05 10^6/uL (3.5-6.1); RED CELL DISTRIBUTION WIDTH 13.5 % (11.5-14.5)
--- NOTE | 2017-10-04 17:34 | CT ---
PROCEDURE: CT Abdomen and Pelvis without intravenous contrast HISTORY: right flank pain COMPARISON: None. TECHNIQUE: Without contrast.. Contrast Dose: 0 Radiation dose: Total exam DLP = 1169.29 mGy-cm. This CT exam was performed using one or more of the following dose reduction techniques: Automated exposure control, adjustment of the mA and/or kV according to patient size, and/or use of iterative reconstruction technique. FINDINGS: LOWER THORAX: Minimal linear scar/ atelectasis in right lower lobe. LIVER: Unremarkable. No gross lesion or ductal dilatation. GALLBLADDER AND BILE DUCTS: Unremarkable. PANCREAS: Unremarkable. No gross lesion or ductal dilatation. SPLEEN: Unremarkable. ADRENALS: Unremarkable. No mass. KIDNEYS AND URETERS: Multiple small bilateral nonobstructing renal calculi. The distribution of calcifications raises suspicion of medullary sponge kidney. No hydronephrosis. No renal mass. VASCULATURE: Unremarkable. No aortic aneurysm. BOWEL: Unremarkable. No obstruction. No gross mural thickening. APPENDIX: Unremarkable. Normal appendix. PERITONEUM: Unremarkable. No free fluid. No free air. LYMPH NODES: Unremarkable. No enlarged lymph nodes. BLADDER: Unremarkable. REPRODUCTIVE: Unremarkable uterus BONES: No acute fracture. OTHER FINDINGS: None. IMPRESSION: Numerous small bilateral nonobstructing renal calculi. The distribution of these calcifications raises suspicion of medullary sponge kidney. Otherwise unremarkable.
--- NOTE | 2017-10-04 18:14 | ED PDOC ---
Arrival/HPI - General Chief Complaint: Back Pain Time Seen by Provider: 10/04/17 14:49 Historian: Patient - History of Present Illness Narrative History of Present Illness (Text): 10/04/17 15:10 A 47 year old female, whose past medical history includes hypertension, diabetes , hyperlipidemia, asthma, SLE, presents to the emergency department complaining of right flank pain starting yesterday. Patient denies any nausea, vomiting, hematuria, bloody stool, vaginal bleeding/discharge, trauma, or any other complaints. Patient is tolerating PO intake. PMD: Dr. Miles Past Medical History - Provider Review Nursing Documentation Reviewed: Yes - Infectious Disease Hx of Infectious Diseases: None - Cardiac Hx Hypertension: Yes - Pulmonary Hx Respiratory Disorders: Yes Hx Asthma: Yes Hx Bronchitis: Yes Hx Chronic Obstructive Pulmonary Disease (COPD): No Hx Emphysema: No Hx Pneumonia: Yes Hx Respiratory Aspiration: No Hx Respiratory Tract Infection: No Hx Sleep Apnea: No Hx Tuberculosis: No - Neurological Hx Neurological Disorder: Yes Hx Alzheimer's Disease: No HX Cerebrovascular Accident: No Hx Dementia: No Hx Dizziness: No Hx Meningitis: No Hx Migraine: Yes Hx Parkinson's Disease: No Hx Seizures: No Hx Transient Ischemic Attacks (TIA): No - HEENT Hx HEENT Disorder: No Hx Blind: No Hx Cataracts: Yes (bilat cataract sx jun 2016) Hx Deafness: No Hx Difficulty Chewing: No Hx Epistaxis: No Hx Glaucoma: No Hx Macular Degeneration: No - Renal Hx Renal Disorder: No Hx Dialysis: No Hx Kidney Stones: No Hx Neurogenic Bladder: No Hx Pyelonephritis: No Hx Renal Cancer: No Hx Renal Failure: No - Endocrine/Metabolic Hx Diabetes Mellitus Type 2: Yes - Hematological/Oncological Hx Blood Disorders: No Hx AIDS: No Hx Anemia: No Hx Cancer: No Hx Chemotherapy: No Hx Cirrhosis: No Hx Hemophilia: No Hx Hepatitis A: No Hx Hepatitis B: No Hx Hepatitis C: No Hx Metastasis: No Hx Shingles: No Hx Sickle Cell Disease: No Hx Unexplained Bleeding: No - Integumentary Hx Dermatological Disorder: No Hx Basal Cell Carcinoma: No Hx Eczema: No Hx Melanoma: No Hx Psoriasis: No Hx Squamous Cell Carcinoma: No - Musculoskeletal/Rheumatological Hx Musculoskeletal Disorders: Yes Hx Arthritis: No Hx Back Pain: Yes Hx Degenerative Joint Disease: Yes Hx Falls: Yes Hx Fractures: No Hx Gout: No Hx Herniated Disk: No Hx Myasthenia Gravis: No Hx Osteoarthritis: No Hx Osteomyelitis: No Hx Osteoporosis: No Hx Rhabdomyolysis: No Hx Spinal Stenosis: Yes Hx Unsteady Gait: No - Gastrointestinal Hx Gastrointestinal Disorders: No Hx Colostomy: No Hx Crohn's Disease: No Hx Diverticulitis: No Hx Gall Bladder Disease: No Hx Gastroesophageal Reflux: No Hx Ileostomy: No Hx Liver Failure: No Hx Pancreatitis: No HX Swallowing Problems: No - Genitourinary/Gynecological Hx Genitourinary Disorders: No Hx Hematuria: No Hx Incontinence: No Hx Sexually Transmitted Diseases: No Other/Comment: ectopic then tubal ligation - Psychiatric Hx Psychophysiologic Disorder: No Hx Anxiety: No Hx Bipolar Disorder: No Hx Depression: No Hx Emotional Abuse: No Hx Hallucinations: No Hx Panic Disorder: No Hx Post Traumatic Stress Disorder: No Hx Psychosis: No Hx Physical Abuse: No Hx Schizophrenia: No Hx Sexual Abuse: No Hx Substance Use: No - Surgical History Hx Cardiac Catheterization: No Hx Coronary Stent: No Other/Comment: Eptopic Preg - Anesthesia Hx Anesthesia: Yes Hx Anesthesia Reactions: No Hx Malignant Hyperthermia: No Family/Social History - Physician Review Nursing Documentation Reviewed: Yes Family/Social History: No Known Family HX Smoking Status: Never Smoked Hx Alcohol Use: Yes (SOCIALLY) Hx Substance Use: No Allergies/Home Meds Allergies/Adverse Reactions: Allergies steriods Allergy (Uncoded 10/04/17 17:56) ANAPHYLAXIS Home Medications: Home Meds Medication Instructions Recorded Confirmed Albuterol/Ipratropium [Combivent 1 puff IH QID PRN 06/09/16 10/04/17 Respimat] Atorvastatin [Lipitor] 20 mg PO HS 06/09/16 10/04/17 Colchicine [Colcrys] 0.6 mg PO DAILY 06/09/16 10/04/17 Furosemide [Lasix] 40 mg PO DAILY 06/09/16 10/04/17 Gabapentin Enacarbil [Horizant] 600 mg PO BID 06/09/16 10/04/17 Insulin Glargine,Hum.rec.anlog 300 unit SQ DIN 06/09/16 10/04/17 [Toujeo Solostar] Insulin Lispro [Humalog Kwikpen 20 units INJ DAILY 06/09/16 10/04/17 U-100] Olopatadine HCl [Pazeo] 0.7 drop BOTHEYES DAILY 06/09/16 10/04/17 Pyridoxine HCl (Vitamin B6) 25 mg PO DAILY 06/09/16 10/04/17 [B-] diltiaZEM CD [Cardizem CD] 120 mg PO DAILY 06/09/16 10/04/17 Tiotropium Br/Olodaterol HCl 2.5 mcg IH DAILY 02/09/17 10/04/17 [Stiolto Respimat Inhal [place]] Review of Systems - Physician Review All systems were reviewed & negative as marked: Yes - Review of Systems Constitutional: absent: Other (no trauma) Gastrointestinal: absent: Stool Changes (no bloody stool), Nausea, Vomiting Genitourinary Female: absent: Hematuria, Vaginal Bleeding, Vaginal Discharge Musculoskeletal: Other (right flank pain) Physical Exam Vital Signs Reviewed: Yes Vital Signs Temp Pulse Resp BP Pulse Ox 10/04/17 20:56 98 H 20 150/86 96 10/04/17 19:30 105 H 18 144/95 H 98 10/04/17 18:27 102 H 19 154/70 H 97 10/04/17 16:27 110 H 20 145/90 98 10/04/17 14:27 98.4 F 128 H 18 131/82 99 Temperature: Afebrile Blood Pressure: Normal Pulse: Regular Respiratory Rate: Normal Appearance: Positive for: Well-Appearing Pain Distress: None Mental Status: Positive for: Alert and Oriented X 3 - Systems Exam Head: Present: Atraumatic, Normocephalic Pupils: Present: PERRL Extroacular Muscles: Present: EOMI Conjunctiva: Present: Normal Mouth: Present: Moist Mucous Membranes Neck: Present: Normal Range of Motion Respiratory/Chest: Present: Clear to Auscultation, Good Air Exchange. No: Respiratory Distress, Accessory Muscle Use Cardiovascular: Present: Regular Rate and Rhythm, Normal S1, S2. No: Murmurs Abdomen: Present: Normal Bowel Sounds. No: Tenderness, Distention, Peritoneal Signs Back: Present: CVA Tenderness (mild right CVA tenderness) Upper Extremity: Present: Normal Inspection. No: Cyanosis, Edema Lower Extremity: Present: Normal Inspection. No: Edema Neurological: Present: GCS=15, CN II-XII Intact, Speech Normal Skin: Present: Warm, Dry, Normal Color. No: Rashes Psychiatric: Present: Alert, Oriented x 3, Normal Insight, Normal Concentration Medical Decision Making ED Course and Treatment: 10/04/17 15:14 Impression: 47 year old female with right flank pain. Physical exam show mild right CVA tenderness; rest of examination is normal. Plan: -- EKG -- Abd/Pevlis CT -- Labs -- Urinalysis -- Urine Culture -- Toradol -- IV Fluids -- Reassess and disposition Prior Visits: Notes and results from previous visits were reviewed. Patient was last seen in the emergency department on 03/14/2017 for evaluation on duration of left leg pain. Patient was admitted. Progress Notes: 10/04/2017 17:33 Abd/Pelvis CT IMPRESSION: Numerous small bilateral nonobstructing renal calculi. The distribution of these calcifications raises suspicion of medullary sponge kidney. Otherwise unremarkable. Dictator: Ric Healy MD - Lab Interpretations Lab Results: 10/04/17 15:30 10/04/17 15:30 Lab Results 10/04/17 20:51: POC Glucose (mg/dL) 219 H 10/04/17 15:30: Sodium 134, Potassium 5.4 H, Chloride 96 L, Carbon Dioxide 28, Anion Gap 16, BUN 10, Creatinine 0.9, Est GFR ( Amer) > 60, Est GFR (Non- Af Amer) > 60, Random Glucose 433 H* D, Calcium 10.9 H, Total Bilirubin 0.7, AST 29, ALT 25, Alkaline Phosphatase 89, Total Protein 6.8, Albumin 3.7, Globulin 3.1, Albumin/Globulin Ratio 1.2, Lipase 214 10/04/17 15:30: WBC 11.0 D, RBC 5.05, Hgb 13.0, Hct 40.9, MCV 81.0, MCH 25.7, MCHC 31.8, RDW 13.5, Plt Count 396, MPV 10.1, Gran % 61.6, Lymph % (Auto) 31.9, [place] % (Auto) 5.6, Eos % (Auto) 0.7 L, Baso % (Auto) 0.2, Gran # 6.76 H, Lymph # 3.5 H, [place] # 0.6, Eos # 0.1, Baso # 0.02 I have reviewed the lab results: Yes - RAD Interpretation Radiology Orders: 10/04/17 15:14 ABD & PELVIS W/O PO OR IV CONT [CT] Stat - Medication Orders Current Medication Orders: Discontinued Medications Sodium Chloride (Sodium Chloride 0.9%) 1,000 mls @ 100 mls/hr IV .Q10H ORION Last Admin: 10/04/17 15:59 Dose: 100 mls/hr eMAR Start Stop Document 10/04/17 15:59 [facility] (Rec: 10/04/17 16:00 [facility] [id number]) Intravenous Solution Start Date 10/04/17 Start Time 16:00 Ketorolac Tromethamine (Toradol) 30 mg IVP STAT STA Stop: 10/04/17 15:15 Last Admin: 10/04/17 15:58 Dose: 30 mg MAR Pain Assessment Document 10/04/17 15:58 [facility] (Rec: 10/04/17 15:59 [facility] [id number]) Pain Reassessment Is this a pain reassessment? No IVP Administration Document 10/04/17 15:58 [facility] (Rec: 10/04/17 15:59 [facility] [id number]) Charges for Administration # of IVP Administrations 1 Oxycodone HCl (Oxycodone Immediate Release Tab) 5 mg PO STAT STA Stop: 10/04/17 19:48 Last Admin: 10/04/17 20:03 Dose: 5 mg MAR Pain Assessment Document 10/04/17 20:03 YP (Rec: 10/04/17 20:03 YP [id number]) Pain Reassessment Is this a pain reassessment? Yes Sleep Is patient sleeping during reassessment? No Presence of Pain Presence of Pain Yes - Scribe Statement The provider has reviewed the documentation as recorded by the Niesha Sr Provider Scribe Attestation: All medical record entries made by the Elioibmayte were at my direction and personally dictated by me. I have reviewed the chart and agree that the record accurately reflects my personal performance of the history, physical exam, medical decision making, and the department course for this patient. I have also personally directed, reviewed, and agree with the discharge instructions and disposition. Disposition/Present on Arrival - Present on Arrival Any Indicators Present on Arrival: Yes History of DVT/PE: No History of Uncontrolled Diabetes: Yes Urinary Catheter: No History of Decub. Ulcer: No History Surgical Site Infection Following: None - Disposition Have Diagnosis and Disposition been Completed?: Yes Diagnosis: Kidney stones, Hyperglycemia Disposition: HOME/ ROUTINE Disposition Time: 17:50 Condition: IMPROVED Discharge Instructions (ExitCare): Kidney Stones (ED), How to Strain Your Urine (ED), Diabetic Hyperglycemia (ED) Additional Instructions: Thank you for letting us take care of you today. The emergency medical care you received today was directed at your acute symptoms. If you were prescribed any medication, please fill it and take as directed. It may take several days for your symptoms to resolve. Return to the Emergency Department if your symptoms worsen, do not improve, or if you have any other problems. Please contact your doctor or call one of the physicians/clinics you have been referred to that are listed on the Patient Visit Information form that is included in your discharge packet. Bring any paperwork you were given at discharge with you along with any medications you are taking to your follow up visit. Our treatment cannot replace ongoing medical care by a primary care provider (PCP) outside of the emergency department. Thank you for allowing the [facility] team to be part of your care today. Follow up with your doctor in 2-3 days for re-evaluation and further management. Prescriptions: Ciprofloxacin [Cipro] 500 mg PO BID #14 tab Ibuprofen [Motrin] 600 mg PO Q6 PRN #20 tab PRN Reason: Pain, Moderate (4-7) Tamsulosin [Flomax] 0.4 mg PO DAILY #7 cap Referrals: Ben Miles DO [Primary Care Provider] - Follow up with primary Forms: Our Security Team (Ukrainian)
[2017-10-04 18:20] LABS: ALB/GLOB RATIO 1.2 (1.1-1.8); ALBUMIN 3.7 g/dL (3.0-4.8); ALT/SGPT 25 U/L (7-56); AST/SGOT 29 U/L (14-36); BLOOD UREA NITROGEN 10 mg/dL (7-21); CALCIUM 10.9 mg/dL (8.4-10.5); GFR AFRICAN-AMERICAN > 60; GFR NON-AFRICAN AMERICAN > 60; LIPASE 214 U/L (23-300)
[2017-10-04] MEDS ORDERED: Sodium Chloride 0.9% 1,000 ML IV STA (18:24)
[2017-10-04] MEDS ORDERED: oxyCODONE 5 mg Immediate Release Tab PO STA (19:47)
[2017-10-04 20:56] VITALS: BP 150/86; PULSE 98; RESP 20; O2SAT 96
--- NOTE | 2017-10-04 21:33 | CARD ---
APPROVED REPORT EKG Measurement Heart [id number] <Conclusion> Sinus tachycardia Otherwise normal ECG
== END 2017-10-04 21:28 | disposition home or self-care (01) ==
LOC: ED 14:26
DX: N20.0 Calculus of kidney (principal); E11.65 Type 2 diabetes mellitus with hyperglycemia; I10 Essential (primary) hypertension; E78.5 Hyperlipidemia, unspecified; M32.9 Systemic lupus erythematosus, unspecified
CPT/HCPCS: 74176; 80053; 82948; 83690; 85025; 93005; 96374; 99284; J1885; J7040

== ENCOUNTER 2018-06-07 14:58 | Inpatient (IN) | payer MEDICARE, OTHER ==
[2018-06-07] MEDS ORDERED: Sodium Chloride 0.9% 1,000 ML IV ONE (15:24)
[2018-06-07] MEDS ORDERED: Piperacillin/Tazobact 3.375 gm 100 ML IVPB STA (15:44)
[2018-06-07 15:54] LABS: VENOUS BLOOD GAS BASE EXCESS -9.7 mmol/L (0.0-2.0); VENOUS BLOOD GAS PO2 37 mm/Hg (30-55); VENOUS BLOOD PH 7.21 (7.32-7.43)
[2018-06-07 15:56] LABS: BASO # 0.01 K/mm3 (0.0-2.0); BASO % 0.1 % (0.0-3.0); GRAN # 14.51 (1.4-6.5); GRAN % 90.2 % (50.0-68.0); HEMOGLOBIN 13.8 g/dL (12.0-16.0); LYMPH # 1.3 (1.2-3.4); LYMPH % 8.2 % (22.0-35.0); MEAN CELL VOLUME 78.4 fl (80.0-105.0); MEAN CORPUSCULAR HEMOGLOBIN 25.7 pg (25.0-35.0); MEAN CORPUSCULAR HGB CONC 32.8 g/dl (31.0-37.0); MEAN PLATELET VOLUME 10.5 fl (7.0-11.0); MONO # 0.2 (0.1-0.6); MONO % 1.5 % (1.0-6.0); PLATELET COUNT 308 10^3/uL (120.0-450.0); RBC 5.37 10^6/uL (3.5-6.1); RED CELL DISTRIBUTION WIDTH 14.5 % (11.5-14.5); WHITE BLOOD COUNT 16.1 10^3/ul (4.5-11.0)
[2018-06-07] MEDS ORDERED: Morphine 4 mg/ml ISec IVP STA (15:56)
--- NOTE | 2018-06-07 15:57 | ED PDOC ---
Arrival/HPI - General Historian: Patient - History of Present Illness Narrative History of Present Illness (Text): 48 y/o female with PMH of DM, CHF, CAD who presents to the ED c/o abdominal pain, vomiting, and subjective fever x 3 days. Pt has had worsening, diffuse abdominal pain with associated anorexia, constipation, and vomiting since Monday. Vomited three times today. She has been taking tylenol for pain without relief, last dose yesterday. Pt has been unable to take any of her home medications since Monday. Currently c/o 06/20 abdominal pain and nausea. Denies chest pain, SOB, palpitations, syncope, diaphoresis, diarrhea, hematochezia, hematemesis, rash, urinary symptoms, vaginal bleeding, vaginal discharge, headache, dizziness. <Loly Sethi - Last Filed: 06/07/18 20:17> <Braxton Muhammad - Last Filed: 06/07/18 22:53> - General Time Seen by Provider: 06/07/18 15:02 Past Medical History - Provider Review Nursing Documentation Reviewed: Yes - Infectious Disease Hx of Infectious Diseases: None - Cardiac Hx Hypertension: Yes - Pulmonary Hx Respiratory Disorders: Yes Hx Asthma: Yes Hx Bronchitis: Yes Hx Chronic Obstructive Pulmonary Disease (COPD): No Hx Emphysema: No Hx Pneumonia: Yes Hx Respiratory Aspiration: No Hx Respiratory Tract Infection: No Hx Sleep Apnea: No Hx Tuberculosis: No - Neurological Hx Neurological Disorder: Yes Hx Alzheimer's Disease: No HX Cerebrovascular Accident: No Hx Dementia: No Hx Dizziness: No Hx Meningitis: No Hx Migraine: Yes Hx Parkinson's Disease: No Hx Seizures: No Hx Transient Ischemic Attacks (TIA): No - HEENT Hx HEENT Disorder: No Hx Blind: No Hx Cataracts: Yes (bilat cataract sx jun 2016) Hx Deafness: No Hx Difficulty Chewing: No Hx Epistaxis: No Hx Glaucoma: No Hx Macular Degeneration: No - Renal Hx Renal Disorder: No Hx Dialysis: No Hx Kidney Stones: No Hx Neurogenic Bladder: No Hx Pyelonephritis: No Hx Renal Cancer: No Hx Renal Failure: No - Endocrine/Metabolic Hx Diabetes Mellitus Type 2: Yes - Hematological/Oncological Hx Blood Disorders: No Hx AIDS: No Hx Anemia: No Hx Cancer: No Hx Chemotherapy: No Hx Cirrhosis: No Hx Hemophilia: No Hx Hepatitis A: No Hx Hepatitis B: No Hx Hepatitis C: No Hx Metastasis: No Hx Shingles: No Hx Sickle Cell Disease: No Hx Unexplained Bleeding: No - Integumentary Hx Dermatological Disorder: No Hx Basal Cell Carcinoma: No Hx Eczema: No Hx Melanoma: No Hx Psoriasis: No Hx Squamous Cell Carcinoma: No - Musculoskeletal/Rheumatological Hx Musculoskeletal Disorders: Yes Hx Arthritis: No Hx Back Pain: Yes Hx Degenerative Joint Disease: Yes Hx Falls: Yes Hx Fractures: No Hx Gout: No Hx Herniated Disk: No Hx Myasthenia Gravis: No Hx Osteoarthritis: No Hx Osteomyelitis: No Hx Osteoporosis: No Hx Rhabdomyolysis: No Hx Spinal Stenosis: Yes Hx Unsteady Gait: No - Gastrointestinal Hx Gastrointestinal Disorders: No Hx Colostomy: No Hx Crohn's Disease: No Hx Diverticulitis: No Hx Gall Bladder Disease: No Hx Gastroesophageal Reflux: No Hx Ileostomy: No Hx Liver Failure: No Hx Pancreatitis: No HX Swallowing Problems: No - Genitourinary/Gynecological Hx Genitourinary Disorders: No Hx Hematuria: No Hx Incontinence: No Hx Sexually Transmitted Diseases: No Other/Comment: ectopic then tubal ligation - Psychiatric Hx Psychophysiologic Disorder: No Hx Anxiety: No Hx Bipolar Disorder: No Hx Depression: No Hx Emotional Abuse: No Hx Hallucinations: No Hx Panic Disorder: No Hx Post Traumatic Stress Disorder: No Hx Psychosis: No Hx Physical Abuse: No Hx Schizophrenia: No Hx Sexual Abuse: No Hx Substance Use: No - Surgical History Hx Cardiac Catheterization: No Hx Coronary Stent: No Other/Comment: Eptopic Preg - Anesthesia Hx Anesthesia: Yes Hx Anesthesia Reactions: No Hx Malignant Hyperthermia: No <Loly Sethi - Last Filed: 06/07/18 20:17> Family/Social History - Physician Review Nursing Documentation Reviewed: Yes Family/Social History: No Known Family HX Smoking Status: Never Smoked Hx Alcohol Use: Yes (SOCIALLY) Hx Substance Use: No <Loly Sethi - Last Filed: 06/07/18 20:17> Allergies/Home Meds <Loly Sethi - Last Filed: 06/07/18 20:17> <Braxton Muhammad - Last Filed: 06/07/18 22:53> Allergies/Adverse Reactions: Allergies steriods Allergy (Uncoded 06/07/18 15:09) ANAPHYLAXIS Home Medications: Home Meds Medication Instructions Recorded Confirmed RX: Albuterol/Ipratropium 1 puff IH QID PRN 06/09/16 06/07/18 [Combivent Respimat] RX: Atorvastatin [Lipitor] 20 mg PO HS 06/09/16 06/07/18 RX: Colchicine [Colcrys] 0.6 mg PO DAILY 06/09/16 06/07/18 RX: Furosemide [Lasix] 40 mg PO DAILY 06/09/16 06/07/18 RX: Gabapentin Enacarbil [Horizant] 600 mg PO BID 06/09/16 06/07/18 RX: Olopatadine HCl [Pazeo] 0.7 drop BOTHEYES DAILY 06/09/16 06/07/18 RX: Pyridoxine HCl (Vitamin B6) 25 mg PO DAILY 06/09/16 06/07/18 [B-Roseanne] RX: diltiaZEM CD [Cardizem CD] 120 mg PO DAILY 06/09/16 06/07/18 RX: Tiotropium Br/Olodaterol HCl 2.5 mcg IH DAILY 02/09/17 06/07/18 [Stiolto Respimat Inhal [place]] Review of Systems - Review of Systems Constitutional: Fatigue, Fevers Eyes: Normal ENT: Normal. absent: Sore Throat, Rhinorrhea, Sinus Congestion Respiratory: Normal. absent: SOB, Cough, Sputum, Wheezing Cardiovascular: Normal. absent: Chest Pain, Palpitations, Edema, Calf Pain, Syncope Gastrointestinal: Abdominal Pain, Constipation, Nausea, Vomiting, Appetite Changes. absent: Diarrhea, Hematochezia, Hematemesis Genitourinary Female: Normal. absent: Dysuria, Frequency, Hematuria, Vaginal Bleeding, Vaginal Discharge Musculoskeletal: Normal. absent: Arthralgias, Back Pain, Neck Pain Skin: Normal. absent: Rash Neurological: Normal. absent: Headache, Dizziness, Focal Weakness, Gait Ch anges, Speech Changes, Facial Droop Endocrine: Diaphoresis Hemo/Lymphatic: Normal. absent: Adenopathy <MotterIsabellLoly - Last Filed: 06/07/18 20:17> Physical Exam - Physical Exam Physical Exam Limitations: Other (obese) Vital Signs Reviewed: Yes Temperature: Febrile Blood Pressure: Normal Pulse: Tachycardic Respiratory Rate: Normal Appearance: Positive for: Ill-Appearing, Uncomfortable Pain Distress: Moderate Mental Status: Positive for: Alert and Oriented X 3 - Systems Exam Head: Present: Atraumatic, Normocephalic Pupils: Present: PERRL Extroacular Muscles: Present: EOMI Conjunctiva: Present: Normal Mouth: Present: Dry Neck: Present: Normal Range of Motion Respiratory/Chest: Present: Clear to Auscultation, Good Air Exchange. No: Respiratory Distress, Accessory Muscle Use, Retracting Cardiovascular: Present: Regular Rate and Rhythm, Normal S1, S2, Peripheal Pulses Present. No: Murmurs Abdomen: Present: Tenderness (diffuse, most in RUQ), Normal Bowel Sounds, Guarding. No: Distention Back: Present: Normal Inspection. No: Midline Tenderness, Paraspinal Tenderness Upper Extremity: Present: Normal Inspection, NORMAL PULSES Lower Extremity: Present: Normal Inspection, NORMAL PULSES Neurological: Present: GCS=15, CN II-XII Intact, Speech Normal, Motor Func Grossly Intact, Normal Sensory Function, Normal Cerebellar Funct Skin: Present: Warm, Dry, Normal Color. No: Rashes Lymphatic: No: Cervical Adenopathy Psychiatric: Present: Alert, Oriented x 3, Normal Insight, Normal Concentration <Loly Sethi - Last Filed: 06/07/18 20:17> Vital Signs Temp Pulse Resp BP Pulse Ox 06/07/18 15:54 148 H 19 131/91 H 99 06/07/18 14:59 101.4 F H 148 H 20 128/83 100 <Braxton Muhammad - Last Filed: 06/07/18 22:53> Medical Decision Making ED Course and Treatment: 06/07/18 15:34 48 y/o female with PMH of DM, CHF CAD who presents to the ED c/o abdominal pain, vomiting, and fever x 3 days. Pt has had worsening, diffuse abdominal pain with associated anorexia, constipation, and vomiting since Monday. Vomited three times today. Pt has been unable to take any of her medications since Monday. Currently c/o 10 abdominal pain and nausea. Denies chest pain, SOB, palpitations, syncope, diaphoresis, diarrhea, hematochezia, hematemesis, rash, urinary symptoms, vaginal bleeding, vaginal discharge. Physical exam revealed -morbidly obese pt, moderate distress from pain, diaphoretic -tachy at 148, temp 101.4, BP 128/93, RR 20 -NL cardiac and pulm exams -NL bowel sounds. Diffuse abdominal tenderness, most in RUQ with guarding. will initiate sepsis workup -ekg -cxr -cbc -cmp -vbg -blood cultures -troponin -phorphorus -pt/inr will give IV zosyn 3.75mg one dose will give NS fluid bolus 1L over 30 min EKG read by Dr. Muhammad 06/07/18 16:07 pt nauseous and in pain will give: -4mg IV morphine -4mg IV Zofran 06/07/18 16:07 pts vbg lactate 6.9 -code sepsis called pt found to be in dka -BS 796 -bicarb 18 -potassium 6.5 -ph 7.21 will give 6 units insulin stat will start insulin drip at 10units/h will give bicarb 50meq 06/07/18 18:06 Pt back from imaging Pt reevaluated -abdominal exam consistent with previous -tachycardic at 136 -BP slightly lower at 121/96 -lungs clear, will give another NS fluid bolus 06/07/18 18:21 CXR: FINDINGS: LUNGS: Clear. PLEURA: No pneumothorax or pleural fluid seen. CARDIOVASCULAR: No radiographic findings to suggest acute or significant cardiovascular disease. OSSEOUS STRUCTURES: No significant abnormalities. VISUALIZED UPPER ABDOMEN: Normal. OTHER FINDINGS: None. IMPRESSION: No active disease. No acute/significant interval changes. CT Abd/Pelvis FINDINGS: LOWER THORAX: Unremarkable. LIVER: Hepatic steatosis. No focal masses. No intrahepatic bile duct dilatation or pe rihepatic ascites. GALLBLADDER AND BILE DUCTS: Unremarkable. PANCREAS: Unremarkable. No gross lesion or ductal dilatation. SPLEEN: Unremarkable. ADRENALS: Unremarkable. No mass. KIDNEYS AND URETERS: Right kidney in ureter: Enhancement of the wall of the right collecting system and ureter. Findings may represent a component pyelonephritis. Left kidney in ureter: Abnormal enhancement of the left kidney particularly midpole region. In addition, the left kidney is edematous. Contrast-enhancing characteristics of the collecting system in proximal left ureter suggests an inflammatory process. Stable nephrocalcinosis identified. VASCULATURE: Unremarkable. No aortic aneurysm. BOWEL: Unremarkable. No obstruction. No gross mural thickening. APPENDIX: No abnormalities to suggest acute appendicitis. No right lower quadrant inflammatory processes identified. PERITONEUM: Unremarkable. No free fluid. No free air. LYMPH NODES: Unremarkable. No enlarged lymph nodes. BLADDER: Unremarkable. REPRODUCTIVE: Unremarkable. BONES: No acute fracture. OTHER FINDINGS: None. IMPRESSION: Upper tract inflammatory changes bilaterally left greater than right likely representing pyelonephritis. No evidence of obstructive uropathy. Additional benign and/or incidental findings described above. GallBladder US: pending -prelim reading of right kidney stone with hydronephrosis; normal gall bladder and common bile duct 06/07/18 18:[address] Maier who accepted pt for ICU admission. Spoke with pt who understands and agrees with the plan for admission. 06/07/18 18:50 Impression: Severe sepsis, DKA, Pyelonephritis, Hyperkalemia Plan: Admission to ICU under Dr. Martins Re-evaluation Time: 19:15 Reassessment Condition: Re-examined, Improved - Critical Care Critical Care Minutes: 60 minutes - Lab Interpretations I have reviewed the lab results: Yes Interpretation: Abnormal lab values - RAD Interpretation Radiology Orders: 06/07/18 15:24 CHEST PORTABLE [RAD] Stat 06/07/18 15:31 GALLBLADDER & COMMON DUCT [US] Stat 06/07/18 15:32 ABD & PELVIS IV CONTRAST ONLY [CT] Stat Photo Machine Operator: Radiologist - EKG Interpretation Interpreted by ED Physician: Yes - Medication Orders Current Medication Orders: Sodium Chloride (Sodium Chloride 0.9%) 1,000 mls @ 2,000 mls/hr IV .Q30M ONE Stop: 06/07/18 15:53 <Loly Sethi - Last Filed: 06/07/18 20:17> ED Course and Treatment: 06/07/18 15:34 EKG: Ordered, reviewed, and independently interpreted the EKG. Rate : 149 BPM Rhythm : Sinus Tachycardia Interpretation : T-wave inversion in lateral leads. 06/07/18 15:34 I saw this patient initially on arrival with PITA Sethi. Patient was complaining of abdominal pain right sided greater on the upper right quadrant. Abdominal exam showed diffuse abdominal tenderness greater on the right side. No rebound. No peritoneal signs. Patient's was tachycardic and febrile. Antipyretic given. IVF given. WBC elevated. LA elevated. Code sepsis called. Stat Zosyn ordered. Labs reviewed and patient was noted to be in DKA and treated with stat Insulin and Insulin drip. Continued to treat with IVF. Patient has a h/o of CHF on lasix so she was reassessed after each bolus we ordered with no development of crackles or any signs of fluid overload. No respiratory distress developed. CT reviewed and noted to have pyelonephritis. US negative for cholecystitis. Case was discussed with the ICU attending Dr. Maier by PITA Sethi. Dr. Reyes came to evaluate patient. FS improving on insulin drip. Patient's pain controlled. Admitted to Dr. Martins service. - Lab Interpretations Lab Results: 06/07/18 15:40 06/07/18 15:40 Lab Results 06/07/18 16:26: POC Glucose (mg/dL) > 500 H* 06/07/18 16:10: Urine Color Straw, Urine Appearance Sl cloudy, Urine pH 6.0, Ur Specific [place] 1.010, Urine Protein 30 H, Urine Glucose (UA) >=1000, Urine Ketones 40 H, Urine Blood Large H, Urine Nitrate Negative, Urine Bilirubin Negative, Urine Urobilinogen 0.2, Ur Leukocyte Esterase Negative, Urine RBC 2 - 5, Urine WBC 5 - 10, Ur Epithelial Cells 0 - 2, Urine Bacteria Trace, Urine Other Trichomonas 06/07/18 15:50: pO2 37, VBG pH 7.21 L, VBG pCO2 45.0, VBG HCO3 18.0 L, VBG Total CO2 19.4 L, VBG O2 Sat (Calc) 65.6 H, VBG Base Excess -9.7 L, VBG Potassium 11.3 H*, Glucose > 750 H* D, Lactate 6.9 H*, FiO2 21.0, Sodium 124.0 L, Chloride 87.0 L, Venous Blood Potassium 11.3 H* 06/07/18 15:40: Sodium 129 L, Potassium 6.5 H* D, Chloride 91 L, Carbon Dioxide 17 L, Anion Gap 28 H, BUN 13, Creatinine 1.2, Est GFR ( Amer) 58, Est GFR (Non-Af Amer) 48, Random Glucose 769 H* D, Calcium 10.6 H, Phosphorus 4.1, Magnesium 2.2, Total Bilirubin 1.3, AST 25, ALT 21, Alkaline Phosphatase 322 H D , Troponin I < 0.01 D, NT-Pro-B Natriuret Pep 426, Total Protein 8.4 H, Albumin 4.2, Globulin 4.2, Albumin/Globulin Ratio 1.0 L 06/07/18 15:40: PT 14.6 H, INR 1.27, APTT 27.2 06/07/18 15:40: WBC 16.1 H D, RBC 5.37, Hgb 13.8, Hct 42.1, MCV 78.4 L, MCH 25.7, MCHC 32.8, RDW 14.5, Plt Count 308, MPV 10.5, Gran % 90.2 H, Lymph % (Auto) 8.2 L, [place] % (Auto) 1.5, Eos % (Auto) 0.0 L, Baso % (Auto) 0.1, Gran # 14.51 H, Lymph # (Auto) 1.3, [place] # (Auto) 0.2, Eos # (Auto) 0.0, Baso # (Auto) 0.01, Neutrophils % (Manual) 76 H, Band Neutrophils % 1, Lymphocytes % (Manual) 19 L, Monocytes % (Manual) 3, Metamyelocytes % 1, Platelet Evaluation Normal, Large Platelets Present - RAD Interpretation Radiology Orders: 06/07/18 15:24 CHEST PORTABLE [RAD] Stat 06/07/18 15:31 GALLBLADDER & COMMON DUCT [US] Stat 06/07/18 15:32 ABD & PELVIS IV CONTRAST ONLY [CT] Stat - Medication Orders Current Medication Orders: Insulin Human Regular 100 (units/ Sodium Chloride) 100 mls @ 10 mls/hr IV .Q10H PRN; Protocol PRN Reason: TITRATE PER MD ORDER Discontinued Medications Sodium Chloride (Sodium Chloride 0.9%) 1,000 mls @ 2,000 mls/hr IV .Q30M ONE Stop: 06/07/18 15:53 Last Admin: 06/07/18 15:40 Dose: 2,000 mls/hr eMAR Start Stop Document 06/07/18 15:40 LA (Rec: 06/07/18 16:10 LA [id number]) Intravenous Solution Start Date 06/07/18 Start Time 15:40 End Date 06/07/18 End time 16:10 Total Infusion Time 30 Piperacillin Sod/Tazobactam Sod (Zosyn 3.375 In Ns 100ml) 100 mls @ 200 mls/hr IVPB STAT STA; Protocol Stop: 06/07/18 16:13 Last Admin: 06/07/18 16:15 Dose: 200 mls/hr eMAR Start Stop Document 06/07/18 16:15 LA (Rec: 06/07/18 16:15 LA [id number]) Intravenous Solution Start Date 06/07/18 Start Time 16:15 End Date 06/07/18 End time 16:45 Total Infusion Time 30 Insulin Human Regular (Humulin R) 6 units SC STAT STA Stop: 06/07/18 16:20 Last Admin: 06/07/18 16:32 Dose: 6 u MAR Blood Glucose Document 06/07/18 16:32 LA (Rec: 06/07/18 16:32 LA [id number]) Blood Glucose Finger Stick Blood Glucose (70-120) 500 Subcutaneous Administrations Document 06/07/18 16:32 LA (Rec: 06/07/18 16:32 LA [id number]) Injection Site MAR Injection Site Left Deltoid Charges for Administration # of Subcutaneous Administrations 1 Morphine Sulfate (Morphine) 4 mg IVP STAT STA Stop: 06/07/18 15:57 Last Admin: 06/07/18 16:09 Dose: 4 mg MAR Pain Assessment Document 06/07/18 16:09 LA (Rec: 06/07/18 16:09 [id number] Pain Reassessment Is this a pain reassessment? No Sleep Is patient sleeping during reassessment? No Presence of Pain Presence of Pain Yes Pain Scale Used Protocol: PSCALES Pain Scale Used Numeric Location Pain Location Body Site Abdomen Description Description Constant Intensity of Pain at present 10 IVP Administration Document 06/07/18 16:09 LA (Rec: 06/07/18 16:09 LA [id number]) Charges for Administration # of IVP Administrations 1 Ondansetron HCl (Zofran Inj) 4 mg IVP STAT STA Stop: 06/07/18 15:37 Last Admin: 06/07/18 15:40 Dose: 4 mg IVP Administration Document 06/07/18 15:40 LA (Rec: 06/07/18 16:10 LA [id number]) Charges for Administration # of IVP Administrations 1 Sodium Bicarbonate (Sodium Bicarbonate 8.4% (50 Meq) Syringe) 50 meq IVP ONCE ONE Stop: 06/07/18 16:22 Last Admin: 06/07/18 16:33 Dose: 50 meq IVP Administration Document 06/07/18 16:33 ARIELA (Rec: 06/07/18 16:34 ARIELA [id number]) Charges for Administration # of IVP Administrations 1 <Braxton Muhammad - Last Filed: 06/07/18 22:53> Disposition/Present on Arrival - Present on Arrival Any Indicators Present on Arrival: Yes History of DVT/PE: No History of Uncontrolled Diabetes: Yes Urinary Catheter: No History Surgical Site Infection Following: None - Disposition Have Diagnosis and Disposition been Completed?: Yes Disposition Time: 18:30 Patient Plan: Admission <Loly Sethi - Last Filed: 06/07/18 20:17> <Braxton Muhammad - Last Filed: 06/07/18 22:53> - Disposition Diagnosis: Severe sepsis, Diabetic keto-acidosis, Hyperkalemia, Pyelonephritis Disposition: HOSPITALIZED Patient Problems: Current Active Problems Problem Status Onset Diabetic keto-acidosis Acute Hyperkalemia Acute Pyelonephritis Acute Severe sepsis Acute Condition: IMPROVED
[2018-06-07 16:03] LABS: INR 1.27; PARTIAL THROMBOPLASTIN TIME 27.2 Seconds (25.1-36.5); PROTHROMBIN TIME 14.6 SECONDS (9.4-12.5)
[2018-06-07 16:17] LABS: ALBUMIN 4.2 g/dL (3.0-4.8); ALT/SGPT 21 U/L (7-56); AST/SGOT 25 U/L (14-36); B-TYPE NATRIURETIC PEPTIDE 426 pg/mL (0-450); BLOOD UREA NITROGEN 13 mg/dL (7-21); CALCIUM 10.6 mg/dL (8.4-10.5); GFR NON-AFRICAN AMERICAN 48; TROPONIN I < 0.01 ng/mL
[2018-06-07] MEDS ORDERED: Insulin Regular 1 UNITS/0.01 ML ML SC STA (16:19)
[2018-06-07] MEDS ORDERED: Sodium Bicarbonate (8.4%) 50 Meq Syringe IVP ONE ×2 (16:21→16:32)
[2018-06-07 16:23] LABS: URINE BILIRUBIN NEGATIVE (NEGATIVE); URINE BLOOD LARGE (NEGATIVE); URINE GLUCOSE (UA) >=1000 mg/dL (NEGATIVE); URINE LEUKOCYTE ESTERASE NEGATIVE Leu/uL (NEGATIVE); URINE PROTEIN 30 mg/dL (<30 mg/dL); URINE UROBILINOGEN 0.2 E.U./dL (<1 E.U./dL)
[2018-06-07 16:24] LABS: URINE APPEARANCE SL CLOUDY (CLEAR); URINE COLOR STRAW (YELLOW)
[2018-06-07 16:31] LABS: URINE BACTERIA TRACE (NEG); URINE EPITHELIAL CELLS 0 - 2 /hpf (0-5)
[2018-06-07 16:38] LABS: BAND 1 % (0-2); LYMPHOCYTE 19 % (22.0-35.0); METAMYELOCYTE 1 %; MONOCYTE 3 % (1.0-6.0); NEUTROPHIL 76 % (50.0-70.0)
[2018-06-07 16:39] LABS: LARGE PLATELETS PRESENT; PLATELET ESTIMATE NORMAL (NORMAL)
[2018-06-07] MEDS ORDERED: Iohexol 350 MG/100 ML VIAL ONE (16:53)
[2018-06-07] MEDS: Insulin Regular 100 UNITS in Sodium Chloride 0.9% 99 ML IV PRN (17:59)
[2018-06-07] MEDS ORDERED: Sodium Chloride 0.9% 1,000 ML IV STA ×3 (18:05→22:39)
--- NOTE | 2018-06-07 18:16 | CT ---
Date of service: 06/07/2018 PROCEDURE: CT Abdomen and Pelvis with contrast HISTORY: Unspecified abdominal pain. COMPARISON: 10/04/2017. CT abdomen and pelvis TECHNIQUE: Contrast dose: 150 cc Omnipaque 350. Radiation dose: Total exam DLP = 1149.23 mGy-cm. This CT exam was performed using one or more of the following dose reduction techniques: Automated exposure control, adjustment of the mA and/or kV according to patient size, and/or use of iterative reconstruction technique. FINDINGS: LOWER THORAX: Unremarkable. LIVER: Hepatic steatosis. No focal masses. No intrahepatic bile duct dilatation or perihepatic ascites. GALLBLADDER AND BILE DUCTS: Unremarkable. PANCREAS: Unremarkable. No gross lesion or ductal dilatation. SPLEEN: Unremarkable. ADRENALS: Unremarkable. No mass. KIDNEYS AND URETERS: Right kidney in ureter: Enhancement of the wall of the right collecting system and ureter. Findings may represent a component pyelonephritis. Left kidney in ureter: Abnormal enhancement of the left kidney particularly midpole region. In addition, the left kidney is edematous. Contrast-enhancing characteristics of the collecting system in proximal left ureter suggests an inflammatory process. Stable nephrocalcinosis identified. VASCULATURE: Unremarkable. No aortic aneurysm. BOWEL: Unremarkable. No obstruction. No gross mural thickening. APPENDIX: No abnormalities to suggest acute appendicitis. No right lower quadrant inflammatory processes identified. PERITONEUM: Unremarkable. No free fluid. No free air. LYMPH NODES: Unremarkable. No enlarged lymph nodes. BLADDER: Unremarkable. REPRODUCTIVE: Unremarkable. BONES: No acute fracture. OTHER FINDINGS: None. IMPRESSION: Upper tract inflammatory changes bilaterally left greater than right likely representing pyelonephritis. No evidence of obstructive uropathy. Additional benign and/or incidental findings described above.
--- NOTE | 2018-06-07 18:27 | RAD ---
Date of service: 06/07/2018 PROCEDURE: CHEST RADIOGRAPH, 1 VIEW HISTORY: Sepsis Patient COMPARISON: 08/22/2017. FINDINGS: LUNGS: Clear. PLEURA: No pneumothorax or pleural fluid seen. CARDIOVASCULAR: No radiographic findings to suggest acute or significant cardiovascular disease. OSSEOUS STRUCTURES: No significant abnormalities. VISUALIZED UPPER ABDOMEN: Normal. OTHER FINDINGS: None. IMPRESSION: No active disease. No acute/significant interval changes.
[2018-06-07 19:05] LABS: VENOUS BLOOD GAS BASE EXCESS -5.6 mmol/L (0.0-2.0); VENOUS BLOOD GAS PO2 88 mm/Hg (30-55); VENOUS BLOOD PH 7.32 (7.32-7.43)
[2018-06-07] MEDS ORDERED: Sod Polystyrene Sulf 15 gm/60 ml Susp PR STA (20:12)
[2018-06-07] MEDS ORDERED: Albuterol 0.042% Inhal Sol (1.25 mg/3 mL) UD IH STA (20:12)
--- NOTE | 2018-06-07 20:36 | PCM.SEPTIC ---
Sepsis Progress Note - Reassessment Type Date of Evaluation: 06/07/18 Time of Evaluation: 20:36 Reassessment Type: Non-invasive reassessment - Non Invasive Reassessment Were the most recent vital sign reviewed: Yes Vital Sign (Latest): Temp Pulse Resp BP Pulse Ox 100.4 F H 132 H 18 141/84 96 06/07/18 18:57 06/07/18 18:57 06/07/18 18:57 06/07/18 18:57 06/07/18 18:57 Cardiovascular: Yes: Tachycardia. No: JVD Respiratory: Yes: Normal Breath Sounds. No: Accessory Muscle Use, Crackles, Wheezing Capillary Refill: Normal (Less than 2 sec) Pulses: Normal Radial Skin: Normal Color, Warm, Dry - Invasive Reassessment (complete 2 of 4) Was a Central Venous Pressure Measurement obtained within 6 Hours after the presentation of septic shock: No Was a central venous oxygen measurement obtained within 6 hours after the presentation of septic shock: No Was a bedside cardiovascular ultrasound performed within 6 hours after the presentation of septic shock: No Was a passive leg raise performed or was a fluid challenge performed within 6 hrs of the initial fluid bolus: No Passive Leg Raise Result: Not Applicable Fluid Challenge performed: Yes
--- NOTE | 2018-06-07 20:42 | CP.PCM.HP ---
<Baylee Aguilar - Last Filed: 06/07/18 21:11> History of Present Illness - History of Present Illness History of Present Illness: PGY-1 Baylee Aguilar D.O. H&P for Dr. Reyes's service: Polina Brambila is a 48 yo female with a history of T2DM on insulin, CHF (EF 20%), CAD (no stents), SLE, pitutary tumor, asthma, and ?arrhythmia on Xarelto who presented to the ED after a 2 day history of abdominal pain, nausea, and vomiting. Patient states that the abdominal pain is sharp and located across the lower abdomen. She has been unable to tolerate PO intake for the past 2 days, and, thus, has not taken any of her medications for 2 day. Additionally, she has not taken insulin for 2 days due to not feeling well. She vomited approximately 5 times today. Denies any hematemesis. Patient also endorses b/l leg weakness and increased urinary frequency. Patient denies fevers, chest, chest pain, SOB, diarrhea, constipation, dysuria, hematuria. PMH: T2DM on insulin- dx 8 yrs ago CHF- EF 20% in 2017, patient reports previously on Life Vest CAD- no stents SLE Pituitary adenoma Asthma ?arrhythmia on Xarelto ectopic 1993 Meds: pharmacy Pintos (will confirm in AM) Xarelto- unk dose Insulin- unk type and dose Coreg- recently increased 2 inhalers and nebulizer Gabapentin 600 mg PO BID Digoxin 0.25 mg PO daily Lipitor 20 mg PO daily Lasix 40 mg PO QOD Flomax 0.4 mg PO daily Diltiazem 120 mg PO daily Spironolactone 25 mg PO BID Vitamin B6 Pazeo eye drops All: NKA FH: DM maternal and paternal grandmother- breast CA SH: Denies tobacco, alcohol, illicit drug use Live alone On disability reportedly for pituitary tumor PMD: Dr. Ben Miles Cardio: Dr. Radford Rheum: Matthew Mcwilliams: Dr walker [place] Present on Admission - Present on Admission Any Indicators Present on Admission: Yes History of DVT/PE: No History of Uncontrolled Diabetes: Yes Urinary Catheter: No Decubitus Ulcer Present: No History Surgical Site Infection Following: None Review of Systems - Constitutional Constitutional: Weakness. absent: Chills, Fever, Headache - EENT Eyes: absent: Blurred Vision, Change in Vision Ears: absent: Decreased Hearing, Tinnitus Nose/Mouth/Throat: absent: Nasal Congestion, Sore Throat - Cardiovascular Cardiovascular: absent: Chest Pain, Dyspnea, Edema, Lightheadedness, Palpita tions - Respiratory Respiratory: absent: Cough, Dyspnea - Gastrointestinal Gastrointestinal: Abdominal Pain (b/l lower quadrants), Nausea, Vomiting (nonbloody, nonbilious). absent: Constipation, Diarrhea - Genitourinary Genitourinary: Urinary Frequency. absent: Dysuria, Flank Pain, Hematuria, Urinary Incontinence - Musculoskeletal Musculoskeletal: Muscle Weakness (b/l LEs). absent: Back Pain, Numbness, Tingling - Integumentary Integumentary: absent: Lesions - Neurological Neurological: absent: Dizziness, Numbness, Loss of Vision, Paresthesias, Syncope Past Patient History - Infectious Disease Hx of Infectious Diseases: None - Past Social History Smoking Status: Never Smoked Chewing Tobacco Use: No Cigar Use: No Alcohol: None Drugs: Denies Home Situation {Lives}: Alone - CARDIAC Hx Hypertension: Yes - PULMONARY Hx Respiratory Disorders: Yes Hx Asthma: Yes Hx Bronchitis: Yes Hx Chronic Obstructive Pulmonary Disease (COPD): No Hx Emphysema: No Hx Pneumonia: Yes Hx Respiratory Aspiration: No Hx Respiratory Tract Infection: No Hx Sleep Apnea: No Hx Tuberculosis: No - NEUROLOGICAL Hx Neurological Disorder: Yes Hx Alzheimer's Disease: No HX Cerebrovascular Accident: No Hx Dementia: No Hx Dizziness: No Hx Meningitis: No Hx Migraine: Yes Hx Parkinson's Disease: No Hx Seizures: No Hx Transient Ischemic Attacks (TIA): No - HEENT Hx HEENT Problems: No Hx Blind: No Hx Cataracts: Yes (bilat cataract sx jun 2016) Hx Deafness: No Hx Difficulty Chewing: No Hx Epistaxis: No Hx Glaucoma: No Hx Macular Degeneration: No - RENAL Hx Chronic Kidney Disease: No Hx Dialysis: No Hx Kidney Stones: No Hx Neurogenic Bladder: No Hx Pyelonephritis: No Hx Renal (Kidney) Cancer: No Hx Renal Failure: No - ENDOCRINE/METABOLIC Hx Diabetes Mellitus Type 2: Yes - HEMATOLOGICAL/ONCOLOGICAL Hx Blood Disorders: No Hx AIDS: No Hx Anemia: No Hx Cancer: No Hx Chemotherapy: No Hx Cirrhosis: No Hx Hemophilia: No Hx Hepatitis A: No Hx Hepatitis B: No Hx Hepatitis C: No Hx Metastesis: No Hx Shingles: No Hx Sickle Cell Disease: No Hx Unexplained Bleeding: No - INTEGUMENTARY Hx Dermatological Problems: No Hx Basil Cell: No Hx Eczema: No Hx Melanoma: No Hx Psoriasis: No Hx Squamous Cell: No - MUSCULOSKELETAL/RHEUMATOLOGICAL Hx Musculoskeletal Disorders: Yes Hx Arthritis: No Hx Back Pain: Yes Hx Degenerative Joint Disease: Yes Hx Falls: Yes Hx Fractures: No Hx Gout: No Hx Herniated Disk: No Hx Myasthenia Gravis: No Hx Osteoarthritis: No Hx Osteomyelitis: No Hx Osteoporosis: No Hx Rhabdomyolysis: No Hx Spinal Stenosis: Yes Hx Unsteady Gait: No - GASTROINTESTINAL Hx Gastrointestinal Disorders: No Hx Colostomy: No Hx Crohn's Disease: No Hx Diverticulitis: No Hx Gall Bladder Disease: No Hx Gastroesophageal Reflux: No Hx Ileostomy: No Hx Liver Failure: No Hx Pancreatitis: No HX Swallowing Problems: No - GENITOURINARY/GYNECOLOGICAL Hx Genitourinary Disorders: No Hx Hematuria: No Hx Incontinence: No Hx Sexually Transmitted Disorders: No Other/Comment: ectopic then tubal ligation - PSYCHIATRIC Hx Psychophysiologic Disorder: No Hx Anxiety: No Hx Bipolar Disorder: No Hx Depression: No Hx Emotional Abuse: No Hx Hallucinations: No Hx Panic Symptoms: No Hx Post Traumatic Stress Disorder: No Hx Psychosis: No Hx Physical Abuse: No Hx Schizophrenia: No Hx Sexual Abuse: No Hx Substance Use: No - SURGICAL HISTORY Hx Cardiac Catheterization: No Hx Coronary Stent: No Other/Comment: Eptopic Preg - ANESTHESIA Hx Anesthesia: Yes Hx Anesthesia Reactions: No Hx Malignant Hyperthermia: No Meds Allergies/Adverse Reactions: Allergies Allergy/AdvReac Type Severity Reaction Status Date / Time steriods Allergy ANAPHYLAXIS Uncoded 06/07/18 15:09 Physical Exam - Constitutional Appears: Non-toxic, No Acute Distress Additional comments: obese - Head Exam Head Exam: ATRAUMATIC, NORMAL INSPECTION - Eye Exam Eye Exam: EOMI, Normal appearance, PERRL - ENT Exam ENT Exam: Mucous Membranes Moist, Normal Exam, Normal Oropharynx - Neck Exam Neck exam: Positive for: Normal Inspection - Respiratory Exam Respiratory Exam: Clear to Auscultation Bilateral, NORMAL BREATHING PATTERN. absent: Wheezes, Respiratory Distress - Cardiovascular Exam Cardiovascular Exam: Tachycardia, REGULAR RHYTHM, +S1, +S2 - GI/Abdominal Exam GI & Abdominal Exam: Normal Bowel Sounds, Soft, Tenderness (b/l lower quadrants). absent: Guarding, Rebound - Rectal Exam Rectal Exam: Deferred - Extremities Exam Extremities exam: Positive for: normal inspection, pedal pulses present. Negative for: pedal edema, tenderness - Back Exam Back exam: NORMAL INSPECTION. absent: tenderness - Neurological Exam Neurological exam: Alert, CN II-XII Intact, Oriented x3 - Psychiatric Exam Psychiatric exam: Normal Affect, Normal Mood - Skin Skin Exam: Dry, Intact, Normal Color, Warm Results - Vital Signs Recent Vital Signs: Last Vital Signs Temp 100.4 F H 06/07/18 18:57 Pulse 132 H 06/07/18 18:57 Resp 18 06/07/18 18:57 BP 141/84 06/07/18 18:57 Pulse Ox 96 06/07/18 18:57 - Labs Result Diagrams: 06/07/18 15:40 06/07/18 15:40 Labs: Laboratory Results - last 24 hr 06/07/18 06/07/18 06/07/18 15:40 15:40 15:40 WBC 16.1 H D RBC 5.37 Hgb 13.8 Hct 42.1 MCV 78.4 L MCH 25.7 MCHC 32.8 RDW 14.5 Plt Count 308 MPV 10.5 Gran % 90.2 H Lymph % (Auto) 8.2 L [place] % (Auto) 1.5 Eos % (Auto) 0.0 L Baso % (Auto) 0.1 Gran # 14.51 H Lymph # (Auto) 1.3 [place] # (Auto) 0.2 Eos # (Auto) 0.0 Baso # (Auto) 0.01 Neutrophils % (Manual) 76 H Band Neutrophils % 1 Lymphocytes % (Manual) 19 L Monocytes % (Manual) 3 Metamyelocytes % 1 Platelet Evaluation Normal Large Platelets Present PT 14.6 H INR 1.27 APTT 27.2 pO2 VBG pH VBG pCO2 VBG HCO3 VBG Total CO2 VBG O2 Sat (Calc) VBG Base Excess VBG Potassium Glucose Lactate FiO2 Sodium 129 L Potassium 6.5 H* D Chloride 91 L Carbon Dioxide 17 L Anion Gap 28 H BUN 13 Creatinine 1.2 Est GFR ( Amer) 58 Est GFR (Non-Af Amer) 48 POC Glucose (mg/dL) Random Glucose 769 H* D Calcium 10.6 H Phosphorus 4.1 Magnesium 2.2 Total Bilirubin 1.3 AST 25 ALT 21 Alkaline Phosphatase 322 H D Troponin I < 0.01 D NT-Pro-B Natriuret Pep 426 Total Protein 8.4 H Albumin 4.2 Globulin 4.2 Albumin/Globulin Ratio 1.0 L Venous Blood Potassium Urine Color Urine Appearance Urine pH Ur Specific [place] Urine Protein Urine Glucose (UA) Urine Ketones Urine Blood Urine Nitrate Urine Bilirubin Urine Urobilinogen Ur Leukocyte Esterase Urine RBC Urine WBC Ur Epithelial Cells Urine Bacteria Urine Other 06/07/18 06/07/18 06/07/18 15:50 16:10 16:26 WBC RBC Hgb Hct MCV MCH MCHC RDW Plt Count MPV Gran % Lymph % (Auto) [place] % (Auto) Eos % (Auto) Baso % (Auto) Gran # Lymph # (Auto) [place] # (Auto) Eos # (Auto) Baso # (Auto) Neutrophils % (Manual) Band Neutrophils % Lymphocytes % (Manual) Monocytes % (Manual) Metamyelocytes % Platelet Evaluation Large Platelets PT INR APTT pO2 37 VBG pH 7.21 L VBG pCO2 45.0 VBG HCO3 18.0 L VBG Total CO2 19.4 L VBG O2 Sat (Calc) 65.6 H VBG Base Excess -9.7 L VBG Potassium 11.3 H* Glucose > 750 H* D Lactate 6.9 H* FiO2 21.0 Sodium 124.0 L Potassium Chloride 87.0 L Carbon Dioxide Anion Gap BUN Creatinine Est GFR ( Amer) Est GFR (Non-Af Amer) POC Glucose (mg/dL) > 500 H* Random Glucose Calcium Phosphorus Magnesium Total Bilirubin AST ALT Alkaline Phosphatase Troponin I NT-Pro-B Natriuret Pep Total Protein Albumin Globulin Albumin/Globulin Ratio Venous Blood Potassium 11.3 H* Urine Color Straw Urine Appearance Sl cloudy Urine pH 6.0 Ur Specific [place] 1.010 Urine Protein 30 H Urine Glucose (UA) >=1000 Urine Ketones 40 H Urine Blood Large H Urine Nitrate Negative Urine Bilirubin Negative Urine Urobilinogen 0.2 Ur Leukocyte Esterase Negative Urine RBC 2 - 5 Urine WBC 5 - 10 Ur Epithelial Cells 0 - 2 Urine Bacteria Trace Urine Other Trichomonas 06/07/18 06/07/18 06/07/18 17:51 18:55 18:56 WBC RBC Hgb Hct MCV MCH MCHC RDW Plt Count MPV Gran % Lymph % (Auto) [place] % (Auto) Eos % (Auto) Baso % (Auto) Gran # Lymph # (Auto) [place] # (Auto) Eos # (Auto) Baso # (Auto) Neutrophils % (Manual) Band Neutrophils % Lymphocytes % (Manual) Monocytes % (Manual) Metamyelocytes % Platelet Evaluation Large Platelets PT INR APTT pO2 88 H VBG pH 7.32 VBG pCO2 39.0 L VBG HCO3 20.1 L VBG Total CO2 21.3 L VBG O2 Sat (Calc) 98.5 H VBG Base Excess -5.6 L VBG Potassium 5.3 H Glucose 671 H* Lactate 3.5 H FiO2 21.0 Sodium 132.0 Potassium Chloride 96.0 L Carbon Dioxide Anion Gap BUN Creatinine Est GFR ( Amer) Est GFR (Non-Af Amer) POC Glucose (mg/dL) > 500 H* > 500 H* Random Glucose Calcium Phosphorus Magnesium Total Bilirubin AST ALT Alkaline Phosphatase Troponin I NT-Pro-B Natriuret Pep Total Protein Albumin Globulin Albumin/Globulin Ratio Venous Blood Potassium 5.3 H Urine Color Urine Appearance Urine pH Ur Specific [place] Urine Protein Urine Glucose (UA) Urine Ketones Urine Blood Urine Nitrate Urine Bilirubin Urine Urobilinogen Ur Leukocyte Esterase Urine RBC Urine WBC Ur Epithelial Cells Urine Bacteria Urine Other - EKG Data EKG Interpreted by: ER Physician EKG shows normal: Sinus rhythm, ST-T waves Rate: Tachycardia Assessment & Plan - Assessment and Plan (Free Text) Assessment: Patient is a 48 yo AA female who presented to the ED with abdominal pain, nausea, and vomiting x2 days. Patient was found to be in DKA. She will be managed in the ICU on an insulin drip. Plan: Neuro: - Continue to monitor cognitive function Cardio: CHF/CAD - Echo pending - Troponin negative x1, trend Q6H x2 - EKG: sinus tachycardia (HR 149), QTc 418, lateral ischemic changes (ST depres [place]), repeat Q6H x2 - Lasix 40 mg IV x1 - Calcium gluconate 1 g IV x1 - Cardiology consulted (Dr. Schwartz) Pulm: - Keep spO2 >92 GI: - Zofran 4 mg IV Q6H PRN for nausea, vomiting : Pyelonephritis - CT A/P: Upper tract inflammatory changes bilaterally left greater than right likely representing pyelonephritis. No evidence of obstructive uropathy. - WBC 16.1 - Zosyn 3.375 g IV x1 - Rocephin 1 g IV daily - F/u Urine Cx - ID consulted (Dr. Sloan) Renal/Electrolytes: Hyponatremia/Hyperkalemia - 2/2 DKA - K 6.5 - BMP Q4H - Kayexalate 15 g supp - Sodium bicarb 50 mEq IV - Albuterol x1 - Proventil x1 Endo: DKA/T2DM - Accuchecks Q1H - NS 1L bolus x3 then fourth 1L bolus if clear lung sounds then NS @ 150 mL/hr - Regular insulin 6 units - Insulin drip @ 10mL/hr Heme: - Heparin 5000 units SC Q8H - SCDs Patient seen and plan approved by attending, Dr. Reyes. <Sean Reyes - Last Filed: 06/08/18 01:47> Results - Vital Signs Recent Vital Signs: Last Vital Signs Temp 100.1 F H 06/08/18 00:11 Pulse 119 H 06/08/18 01:00 Resp 26 H 06/08/18 01:00 BP 105/63 06/08/18 01:00 Pulse Ox 100 06/08/18 01:05 - Labs Result Diagrams: 06/07/18 15:40 06/07/18 21:10 Labs: Laboratory Results - last 24 hr 06/07/18 06/07/18 06/07/18 15:40 15:40 15:40 WBC 16.1 H D RBC 5.37 Hgb 13.8 Hct 42.1 MCV 78.4 L MCH 25.7 MCHC 32.8 RDW 14.5 Plt Count 308 MPV 10.5 Gran % 90.2 H Lymph % (Auto) 8.2 L [place] % (Auto) 1.5 Eos % (Auto) 0.0 L Baso % (Auto) 0.1 Gran # 14.51 H Lymph # (Auto) 1.3 [place] # (Auto) 0.2 Eos # (Auto) 0.0 Baso # (Auto) 0.01 Neutrophils % (Manual) 76 H Band Neutrophils % 1 Lymphocytes % (Manual) 19 L Monocytes % (Manual) 3 Metamyelocytes % 1 Platelet Evaluation Normal Large Platelets Present PT 14.6 H INR 1.27 APTT 27.2 pO2 VBG pH VBG pCO2 VBG HCO3 VBG Total CO2 VBG O2 Sat (Calc) VBG Base Excess VBG Potassium Glucose Lactate FiO2 Sodium 129 L Potassium 6.5 H* D Chloride 91 L Carbon Dioxide 17 L Anion Gap 28 H BUN 13 Creatinine 1.2 Est GFR ( Amer) 58 Est GFR (Non-Af Amer) 48 POC Glucose (mg/dL) Random Glucose 769 H* D Calcium 10.6 H Phosphorus 4.1 Magnesium 2.2 Total Bilirubin 1.3 AST 25 ALT 21 Alkaline Phosphatase 322 H D Troponin I < 0.01 D NT-Pro-B Natriuret Pep 426 Total Protein 8.4 H Albumin 4.2 Globulin 4.2 Albumin/Globulin Ratio 1.0 L Venous Blood Potassium Urine Color Urine Appearance Urine pH Ur Specific [place] Urine Protein Urine Glucose (UA) Urine Ketones Urine Blood Urine Nitrate Urine Bilirubin Urine Urobilinogen Ur Leukocyte Esterase Urine RBC Urine WBC Ur Epithelial Cells Urine Bacteria Urine Other 06/07/18 06/07/18 06/07/18 15:50 16:10 16:26 WBC RBC Hgb Hct MCV MCH MCHC RDW Plt Count MPV Gran % Lymph % (Auto) [place] % (Auto) Eos % (Auto) Baso % (Auto) Gran # Lymph # (Auto) [place] # (Auto) Eos # (Auto) Baso # (Auto) Neutrophils % (Manual) Band Neutrophils % Lymphocytes % (Manual) Monocytes % (Manual) Metamyelocytes % Platelet Evaluation Large Platelets PT INR APTT pO2 37 VBG pH 7.21 L VBG pCO2 45.0 VBG HCO3 18.0 L VBG Total CO2 19.4 L VBG O2 Sat (Calc) 65.6 H VBG Base Excess -9.7 L VBG Potassium 11.3 H* Glucose > 750 H* D Lactate 6.9 H* FiO2 21.0 Sodium 124.0 L Potassium Chloride 87.0 L Carbon Dioxide Anion Gap BUN Creatinine Est GFR ( Amer) Est GFR (Non-Af Amer) POC Glucose (mg/dL) > 500 H* Random Glucose Calcium Phosphorus Magnesium Total Bilirubin AST ALT Alkaline Phosphatase Troponin I NT-Pro-B Natriuret Pep Total Protein Albumin Globulin Albumin/Globulin Ratio Venous Blood Potassium 11.3 H* Urine Color Straw Urine Appearance Sl cloudy Urine pH 6.0 Ur Specific [place] 1.010 Urine Protein 30 H Urine Glucose (UA) >=1000 Urine Ketones 40 H Urine Blood Large H Urine Nitrate Negative Urine Bilirubin Negative Urine Urobilinogen 0.2 Ur Leukocyte Esterase Negative Urine RBC 2 - 5 Urine WBC 5 - 10 Ur Epithelial Cells 0 - 2 Urine Bacteria Trace Urine Other Trichomonas 06/07/18 06/07/18 06/07/18 17:51 18:55 18:56 WBC RBC Hgb Hct MCV MCH MCHC RDW Plt Count MPV Gran % Lymph % (Auto) [place] % (Auto) Eos % (Auto) Baso % (Auto) Gran # Lymph # (Auto) [place] # (Auto) Eos # (Auto) Baso # (Auto) Neutrophils % (Manual) Band Neutrophils % Lymphocytes % (Manual) Monocytes % (Manual) Metamyelocytes % Platelet Evaluation Large Platelets PT INR APTT pO2 88 H VBG pH 7.32 VBG pCO2 39.0 L VBG HCO3 20.1 L VBG Total CO2 21.3 L VBG O2 Sat (Calc) 98.5 H VBG Base Excess -5.6 L VBG Potassium 5.3 H Glucose 671 H* Lactate 3.5 H FiO2 21.0 Sodium 132.0 Potassium Chloride 96.0 L Carbon Dioxide Anion Gap BUN Creatinine Est GFR ( Amer) Est GFR (Non-Af Amer) POC Glucose (mg/dL) > 500 H* > 500 H* Random Glucose Calcium Phosphorus Magnesium Total Bilirubin AST ALT Alkaline Phosphatase Troponin I NT-Pro-B Natriuret Pep Total Protein Albumin Globulin Albumin/Globulin Ratio Venous Blood Potassium 5.3 H Urine Color Urine Appearance Urine pH Ur Specific [place] Urine Protein Urine Glucose (UA) Urine Ketones Urine Blood Urine Nitrate Urine Bilirubin Urine Urobilinogen Ur Leukocyte Esterase Urine RBC Urine WBC Ur Epithelial Cells Urine Bacteria Urine Other 06/07/18 06/07/18 06/07/18 20:07 21:10 23:30 WBC RBC Hgb Hct MCV MCH MCHC RDW Plt Count MPV Gran % Lymph % (Auto) [place] % (Auto) Eos % (Auto) Baso % (Auto) Gran # Lymph # (Auto) [place] # (Auto) Eos # (Auto) Baso # (Auto) Neutrophils % (Manual) Band Neutrophils % Lymphocytes % (Manual) Monocytes % (Manual) Metamyelocytes % Platelet Evaluation Large Platelets PT INR APTT pO2 VBG pH VBG pCO2 VBG HCO3 VBG Total CO2 VBG O2 Sat (Calc) VBG Base Excess VBG Potassium Glucose Lactate FiO2 Sodium 139 Potassium 4.3 Chloride 106 Carbon Dioxide 22 Anion Gap 15 BUN 12 Creatinine 1.1 Est GFR ( Amer) > 60 Est GFR (Non-Af Amer) 53 POC Glucose (mg/dL) 430 H* 330 H Random Glucose 422 H* D Calcium 8.9 Phosphorus Magnesium Total Bilirubin AST ALT Alkaline Phosphatase Troponin I 0.01 NT-Pro-B Natriuret Pep Total Protein Albumin Globulin Albumin/Globulin Ratio Venous Blood Potassium Urine Color Urine Appearance Urine pH Ur Specific [place] Urine Protein Urine Glucose (UA) Urine Ketones Urine Blood Urine Nitrate Urine Bilirubin Urine Urobilinogen Ur Leukocyte Esterase Urine RBC Urine WBC Ur Epithelial Cells Urine Bacteria Urine Other 06/08/18 06/08/18 00:10 01:14 WBC RBC Hgb Hct MCV MCH MCHC RDW Plt Count MPV Gran % Lymph % (Auto) [place] % (Auto) Eos % (Auto) Baso % (Auto) Gran # Lymph # (Auto) [place] # (Auto) Eos # (Auto) Baso # (Auto) Neutrophils % (Manual) Band Neutrophils % Lymphocytes % (Manual) Monocytes % (Manual) Metamyelocytes % Platelet Evaluation Large Platelets PT INR APTT pO2 VBG pH VBG pCO2 VBG HCO3 VBG Total CO2 VBG O2 Sat (Calc) VBG Base Excess VBG Potassium Glucose Lactate FiO2 Sodium Potassium Chloride Carbon Dioxide Anion Gap BUN Creatinine Est GFR ( Amer) Est GFR (Non-Af Amer) POC Glucose (mg/dL) 359 H 326 H Random Glucose Calcium Phosphorus Magnesium Total Bilirubin AST ALT Alkaline Phosphatase Troponin I NT-Pro-B Natriuret Pep Total Protein Albumin Globulin Albumin/Globulin Ratio Venous Blood Potassium Urine Color Urine Appearance Urine pH Ur Specific [place] Urine Protein Urine Glucose (UA) Urine Ketones Urine Blood Urine Nitrate Urine Bilirubin Urine Urobilinogen Ur Leukocyte Esterase Urine RBC Urine WBC Ur Epithelial Cells Urine Bacteria Urine Other Attending/Attestation - Attestation I have personally seen and examined this patient.: Yes I have fully participated in the care of the patient.: Yes I have reviewed all pertinent clinical information: Yes Notes (Text): 06/08/18 01:40 Patient was seen when she was in bed # 16 in the ER. Medical record was reviewed. Agree with history, physical examination, assessment and plan. This 48 year old obese woman with history of DM,CHF,CAD, asthma, migraine , DM II, pituitary adenoma, SLE, HLD, spinal stenosis, HTN, DJD,uterine fibroid, ectopic , irregular menses comes in with abdominal pain, nausea, vomiting, DKA, sepsis, pyelonephritis, elevated lactate level,hyperkalemia, hyponatremia, metabolic acidosis, hyperglycemia,sinus tachycardia, lateral wall ischemia.
[2018-06-07 21:44] LABS: BLOOD UREA NITROGEN 12 mg/dL (7-21); CALCIUM 8.9 mg/dL (8.4-10.5); GFR NON-AFRICAN AMERICAN 53
[2018-06-07 21:46] LABS: TROPONIN I 0.01 ng/mL
[2018-06-08] MEDS ORDERED: Sodium Chloride 0.9% 1,000 ML IV SCH (00:30)
[2018-06-08 02:10] VITALS: BMI 39.9
[2018-06-08] MEDS ORDERED: Pneumococcal 23-Valent Vaccine IM ONE (02:10)
[2018-06-08] MEDS ORDERED: Influenza Vaccine 60 mcg/0.5 mL SYR (4YR UP) IM ONE (02:10)
[2018-06-08 02:18] LABS: BLOOD UREA NITROGEN 11 mg/dL (7-21); CALCIUM 8.7 mg/dL (8.4-10.5); GFR NON-AFRICAN AMERICAN 53
[2018-06-08 02:26] LABS: TROPONIN I 0.03 ng/mL
--- NOTE | 2018-06-08 02:56 | CON ---
DATE: 06/07/2018 ENDOCRINOLOGY CONSULT LOCATION: In ICU 129, room 7. HISTORY OF PRESENT ILLNESS: This is a 48-year-old female with known history of type 2 insulin-requiring diabetes, presenting here with nausea, dyspepsia and vomiting with diffuse abdominal pain with supervening marked hyperglycemic accelerations and is now being referred for diabetic evaluation and management. PAST MEDICAL HISTORY: As mentioned above, history of type 2 insulin-requiring diabetes, using insulin twice a day, but exact name is unknown at this time and this will be verified with [facility]; history of hypertensive cardiovascular disease and dyslipidemia; history of coronary artery disease and underlying peripheral arterial disease and vasculopathy; history of previous admissions for congestive heart failure with underlying cardiomyopathy an apparent ejection fraction of 20% as noted; history of systemic lupus, currently on no medications at this time; also an apparent history of pituitary adenoma and again the details are not known at this time and the records to be verified accordingly; history of chronic bronchial asthma with previous admissions for exacerbations of the same; history of cardiac tachyarrhythmias, apparently previously on Xarelto medications. FAMILY HISTORY: Positive for diabetes and hypertension. SOCIAL HISTORY: The patient has a supportive family. No known substance use. Uses alcohol socially. REVIEW OF SYSTEMS: As mentioned above. Admits to generalized body weakness with progressive bouts of dizziness and lightheadedness, worse in the last 2 days prior to admission. Also admits to bifrontal headaches, visual blurring and suboptimal energy level. No chest pains or palpitations, but admits to progressive shortness of breath, especially on exertion. Her oral intake has been variable and suboptimal with recent anorexia and supervening nausea, dyspepsia and intractable vomiting episodes. Moreover, she developed severe and diffuse abdominal pain on the day of admission. Also admits to lower extremity painful paresthesias. PHYSICAL EXAMINATION: GENERAL: This is an obese female, in no apparent distress. VITAL SIGNS: Blood pressure of 140/80; pulse of 100 beats per minute, regular; temperature 101; respirations 20; height is 5 feet 5 inches, weight is 235 pounds. HEENT: Head normocephalic. Eyes anicteric with pink conjunctivae. Funduscopy not possible at this time. Ears, nose and throat otherwise normal. NECK: Supple. Thyroid gland is normal in size. No carotid bruits or any cervical adenopathy. CARDIOPULMONARY: Some adynamic precordium. S1, S2 are rapid and regular. Lungs show scattered rhonchi. ABDOMEN: Obese, soft with positive bowel sounds. EXTREMITIES: No peripheral edema. Pulses are +2 bilaterally. LABORATORY DATA: WBC 16.1, hemoglobin of 13, hematocrit of 42, MCV 78, platelets 308. Chemistries initially showed a BUN of 13, sodium 129, potassium 6.5, chloride 91, CO2 of 17, glucose 769 and creatinine 1.2. Her calcium is 10.6, alkaline phosphatase is 322, troponin less than 0.01. ProBNP is 426 and subsequent glucose levels were over 500 mg/dL. ASSESSMENT: This is a 48-year-old female with uncontrolled and decompensated type 2 insulin-requiring diabetes, presenting here with hyperosmolar hyperglycemic state and concomitant ketosis related most likely precipitated by the intractable vomiting episodes as noted with concomitant septicemia as evaluated in the emergency room. Moreover, she also has acute pyelonephritis from the CAT scan of the abdomen and pelvis undertaken today as noted. She also has diabetic microvascular complications of retinopathy and polyneuropathy with diabetic macrovascular complications of coronary artery disease and underlying cardiomyopathy with peripheral arterial disease and vasculopathy. Moreover, she also has concomitant super morbid obesity contributing to the increased insulin resistance and further impaired glucose tolerance thereof. There is also clinical and biochemical evidence of dehydration and prerenal azotemia with spurious hyponatremia and hyperkalemia related to the increased osmotic diuresis as noted thereof. PLAN OF MANAGEMENT: We will continue the insulin drip infusion as given overnight with hourly glucose testing undertaken. As her oral intake improves, then, we will advance her diet to a carb consistent heart healthy diet and start her also on a more physiologic basal and bolus insulin regimen as indicated. We will obtain serial chemistries and supplement accordingly as needed. We will also continue the vigorous IV hydration, but because of the underlying congestive heart failure, we will cautiously monitor her IV hydration and cardiopulmonary status thereof. We will obtain a hemoglobin A1c to confirm her prior glycemic control and baseline thyroid function studies will be ordered. We will follow and advise accordingly. Aisha Purvis MD
[2018-06-08] MEDS ORDERED: Insulin Detemir 100 units/ml Vial (Levemir) SC ONE (05:46)
[2018-06-08] MEDS: Insulin Regular 100 UNITS in Sodium Chloride 0.9% 99 ML IV PRN (06:22)
[2018-06-08 06:58] LABS: ALB/GLOB RATIO 0.9 (1.1-1.8); ALBUMIN 3.1 g/dL (3.0-4.8); ALT/SGPT 16 U/L (7-56); AST/SGOT 23 U/L (14-36); BLOOD UREA NITROGEN 12 mg/dL (7-21); GFR NON-AFRICAN AMERICAN 53; HDL CHOLESTEROL 18 mg/dL (29-60); LDL CHOLESTEROL < 30 mg/dL (0-129); LIPASE 20 U/L (23-300)
--- NOTE | 2018-06-08 07:18 | CP.PCM.PN ---
<Baylee Aguilar - Last Filed: 06/08/18 17:19> Subjective - Date & Time of Evaluation Date of Evaluation: 06/08/18 Time of Evaluation: 09:00 - Subjective Subjective: PGY-1 Baylee Aguilar D.O. Medicine progress not for Dr. Bryant's service: Patient was seen and examined this morning. Over night, her glucose downtrended into the 300s and the anion gap closed to 11. Patient continues to have intermittent abdominal pain and nausea, typically when getting OOB into chair. She is able to tolerate clear liquids. She denies chest pain, SOB. She continues to have mild suprapubic/lower abdominal pain. Objective - Vital Signs/Intake and Output Vital Signs (last 24 hours): Temp Pulse Resp BP Pulse Ox 98.6 F 112 H 24 128/86 100 06/08/18 04:00 06/08/18 04:00 06/08/18 04:00 06/08/18 04:00 06/08/18 04:00 Intake and Output: 06/08/18 06/08/18 06:59 18:59 Intake Total 45 Output Total 700 Balance -655 - Medications Medications: Current Medications Heparin Sodium (Porcine) (Heparin) 5,000 units SC Q8 ORION; Protocol Last Admin: 06/08/18 05:54 Dose: 5,000 units Insulin Human Regular 100 (units/ Sodium Chloride) 100 mls @ 10 mls/hr IV .Q10H PRN; Protocol PRN Reason: TITRATE PER MD ORDER Last Admin: 06/08/18 06:22 Dose: 4 units/hr, 4 mls/hr Ceftriaxone Sodium (Rocephin 1 Gram Ivpb) 1 gm in 100 mls @ 100 mls/hr IVPB DAILY ORION; Protocol Sodium Chloride (Sodium Chloride 0.9%) 1,000 mls @ 100 mls/hr IV .Q10H ORION Last Admin: 06/08/18 00:45 Dose: 100 mls/hr Ondansetron HCl (Zofran Inj) 4 mg IVP Q6H PRN PRN Reason: Nausea/Vomiting - Labs Labs: 06/07/18 15:40 06/08/18 05:30 PT 14.6 SECONDS (9.4-12.5) H 06/07/18 15:40 INR 1.27 06/07/18 15:40 APTT 27.2 Seconds (25.1-36.5) 06/07/18 15:40 - Constitutional Appears: Non-toxic, No Acute Distress, Other (obese) - Head Exam Head Exam: ATRAUMATIC, NORMAL INSPECTION - Eye Exam Eye Exam: EOMI, Normal appearance, PERRL - ENT Exam ENT Exam: Mucous Membranes Moist, Normal Exam, Normal Oropharynx - Neck Exam Neck Exam: Normal Inspection - Respiratory Exam Respiratory Exam: Decreased Breath Sounds, Clear to Ausculation Bilateral, NORMAL BREATHING PATTERN. absent: Rales - Cardiovascular Exam Cardiovascular Exam: REGULAR RHYTHM, +S1, +S2 - GI/Abdominal Exam GI & Abdominal Exam: Soft, Tenderness (mild lower, suprapubic), Normal Bowel [place]sabel nds. absent: Rebound - Rectal Exam Rectal Exam: Deferred - Extremities Exam Extremities Exam: Normal Inspection. absent: Pedal Edema, Tenderness - Back Exam Back Exam: NORMAL INSPECTION. absent: tenderness - Neurological Exam Neurological Exam: Alert, Awake, CN II-XII Intact, Oriented x3 Neuro motor strength exam: Left Upper Extremity: 5, Right Upper Extremity: 5, Left Lower Extremity: 5, Right Lower Extremity: 5 - Psychiatric Exam Psychiatric exam: Normal Affect, Normal Mood - Skin Skin Exam: Dry, Intact, Normal Color, Warm Assessment and Plan - Assessment and Plan (Free Text) Assessment: Patient is a 48 yo AA female who presented to the ED with abdominal pain, nausea, and vomiting x2 days. Patient was found to be in DKA. She is currently managed in the ICU on an insulin drip. Anion gap has closed, but glucose is persistently elevated. Plan: DKA, resolved- T2DM poorly controlled - HgbA1c 14.9 - Anion gap closed (11) - BMP Q4H - BG persistently 400s-500s - Insulin drip @ 10 mL/hr - Zofran 4 mg IV Q6H PRN for nausea, vomiting - Endocrinology consulted (Cam) - Call Or Contact Centre Team Leader consult Pyelonephritis with Bacteremia (GNR) - CT A/P: Upper tract inflammatory changes bilaterally left greater than right likely representing pyelonephritis. No evidence of obstructive uropathy. - WBC 16.1->19.3 - Urine Cx negative - Blood Cx 2/2 GNR- f/u final and sensitivity - Zosyn 3.375 g IV Q6H - Rocephin 1 g IV daily - ID consulted (Dr. Sloan) CHF - Troponin <0.1, 0.1, 0.3 - EKG: sinus tachycardia (HR 149), QTc 418, lateral ischemic changes (ST depression) - Echo pending - Digoxin 0.25 mg PO daily - Coreg 6.25 mg PO BID - Cardiology consulted (Dr. Schwartz) H/o Afib - Xarelto 20 mg PO daily Dyslipidemia - TG 356, choles 109, LDL <30, HDL 18 - Start Fenofibrate 48 mg PO daily IVF: contraindicated 2/2 CHF, patient received >4L of NS Diet: NPO except meds GI ppx: Protonix 40 mg PO daily VTE ppx: Xarelto 20 mg PO daily, SCDs Code status: full code Case was discussed with attending, Dr. Bryant. <Lubna Bryant R - Last Filed: 06/12/18 16:51> Objective - Vital Signs/Intake and Output Vital Signs (last 24 hours): Temp Pulse Resp BP Pulse Ox 98.2 F 82 20 139/88 99 06/12/18 08:35 06/12/18 09:23 06/12/18 08:35 06/12/18 09:23 06/12/18 08:35 - Labs Labs: 06/12/18 06:30 06/12/18 06:30 PT 14.6 SECONDS (9.4-12.5) H 06/07/18 15:40 INR 1.27 06/07/18 15:40 APTT 27.2 Seconds (25.1-36.5) 06/07/18 15:40 Attending/Attestation - Attestation I have personally seen and examined this patient.: Yes I have fully participated in the care of the patient.: Yes I have reviewed all pertinent clinical information, including history, physical exam and plan: Yes Notes (Text): Patient seen and examined by me at 9:55AM with resident 06/08/18. Case including HPI, physical exam, andassessment and plan discussed with resident. Agree with above with following additions/corrections. 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 Patient states she is feeling ok. Complains of a headache. States that she was feeling ok but when she got up, she started to have nausea and abdominal pain. Patient is tolerating clear liquids. No chest pain or palpitations. No fevers or chills. No diarrhea or constipation. No dysuria. Physical exam: General: Awake and alert lying in bed in no acute distress HEENT: Normocephalic atraumatic. Pupils equal reactive. No scleral icterus. Oropharynx is pink and moist. No pharyngeal erythema or exudate appreciated. Ne ck is supple. Cardiovascular: Normal rhythm. Normal S1, S2. No murmurs, rubs or gallops appreciated Pulmonary: Normal respiratory effort. No rhonchi, rales or wheezing appreciated. Gastrointestinal: Soft, nondistended. Mild lower abdominal and suprapubic tenderness. Positive bowel sounds all 4 quadrants, no guarding. Musculoskeletal: Moves all extremities, no calf tenderness. No edema. Central nervous system: AAOx3, CN2-12 grossly intact Dermatologic: Skin warm and dry. 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 1. DKA. Resolving. On insulin drip. Marketing Finance Manager following, recommendations appreciated. Continue IV fluids. HgbA1C 14.9. Continue to monitor accuchecks and BMP 2. Gram negative bacteremia. ?Pyelonephritis. Urine culture with no growth. Blood cultures with gram negative rods. Pending final culture read. ID following, recommendations appreciated. Continue with Zosyn. Leukocytosis downtrending. CT abd/pelvis per radiologist showed upper tract inflammatory changes bilaterally left greater than right likely representing pyelonephritis; no evidence of obstructive uropathy. 3. Abdominal pain. Nausea and Vomiting. Improving. Secondary to DKA and bacteremia, pyelonephritis. CT abd/pelvis as above. Gallbladder ultrasound per radiologist showed nonobstructive right interpolar calculus, mild right renal hydronephrosis, normal gallbladder. 4. Chronic systolic CHF. Cardiology following, recommendations appreciated. Continue digoxin and coreg. Echo reading pending 5. History of left ventricular apical thrombus. Continue Xarelto. Cardiology following. 6. Dyslipidemia. Started on fenofibrate. Continue Lipitor. Diet and exercise discussed with patient. 7. History of gout. Continue Colchicine. 8. History of mild intermittent asthma. No acute exacerbation. Continue nebulizer treatments as needed. Case was discussed in detail with the patient regarding current diagnosis and treatment plan. All questions answered.
--- NOTE | 2018-06-08 07:50 | CP.CCUPN ---
<Rich Pollard - Last Filed: 06/08/18 11:13> CCU Subjective - Physician Review Subjective (Free Text): Rich Pollard DO, PGY-1 ICU Progress Note for Dr. Maier Patient is a 48 year old female with PMH of DM2, CHF (last EF 20), CAD, SLE, and pituitary tumor presented to ED last night with worsening abdominal pain, nausea, and vomiting. Patient states that she had not been feeling well the last several days and had not taken her insulin or any of her other medications. She was subsequently found to have DKA and pyelonephritis L > R in ED and was admitted to ICU for management. Currently, she is still having nausea and abdominal pain but it has improved. She also admits to still feeling chills and a headache but denies vision changes, CP, SOB, or cough. CCU Objective - Vital Signs / Intake & Output Vital Signs (Last 4 hours): Vital Signs Temp Pulse Resp BP Pulse Ox 06/08/18 06:00 118 H 06/08/18 04:00 98.6 F 112 H 24 128/86 100 Intake and Output (Last 8hrs): Intake & Output 06/07/18 06/08/18 06/08/18 22:59 06:59 14:59 Intake Total 1772 Output Total 1200 1850 Balance -1200 -78 Weight 240 lb Intake: IV 1772 0.9NS IV Bolus 1000 Insulin IV infusion 102 Right Forearm 625 Oral 0 Tube Feeding 0 TPN/PPN 0 Blood Product 0 Lipid 0 Albumin 0 Other 0 Output: Urine 1200 1850 Urine, Voided 1850 Stool 0 Urine/Stool Mix 0 Emesis 0 Oral Regurgitation 0 Other 0 Other: Voiding Method Bedpan # Voids Urine, Voided 3 # Bowel Movements 0 - Physical Exam Head: Positive for: Atraumatic, Normocephalic Pupils: Positive for: PERRL Conjunctiva: Positive for: Normal. Negative for: Icteric Mouth: Positive for: Dry Pharnyx: Positive for: Normal. Negative for: ERYTHEMA, EXUDATE Neck: Positive for: Normal Range of Motion Respiratory/Chest: Positive for: Clear to Auscultation, Good Air Exchange. Negative for: Respiratory Distress, Accessory Muscle Use, Wheezes, Rales, Rhonchi, Tachypneic Cardiovascular: Positive for: Regular Rate and Rhythm, Normal S1, S2. Negative for: Murmurs, Rub, Gallop Abdomen: Positive for: Tenderness (mild tenderness to palpation diffusely but greatest in LLQ), Normal Bowel Sounds. Negative for: Distention, Rebound, Guarding Back: Positive for: Normal Inspection. Negative for: CVA Tenderness Upper Extremity: Positive for: Normal Inspection. Negative for: Cyanosis, Edema Lower Extremity: Positive for: Normal Inspection. Negative for: Edema Neurological: Positive for: Speech Normal, Motor Func Grossly Intact Skin: Positive for: Warm, Dry, Normal Color. Negative for: Rashes Psychiatric: Positive for: Alert, Oriented x 3, Normal Insight, Normal Concen tration - Medications Active Medications: Active Medications Generic Name Dose Route Start Last Admin Trade Name Freq PRN Reason Stop Dose Admin Heparin Sodium (Porcine) 5,000 units 06/07/18 22:00 06/08/18 05:54 Heparin SC 5,000 units Q8 ORION Administration Protocol Ceftriaxone Sodium 1 gm in 100 mls @ 100 mls/hr 06/08/18 10:00 Rocephin 1 Gram Ivpb IVPB DAILY ORION Protocol Sodium Chloride 1,000 mls @ 100 mls/hr 06/08/18 00:30 06/08/18 00:45 Sodium Chloride 0.9% IV 100 mls/hr .Q10H ORION Administration Ondansetron HCl 4 mg 06/07/18 21:18 06/08/18 07:40 Zofran Inj IVP 4 mg Q6H PRN Administration Nausea/Vomiting - Patient Studies Lab Studies: Lab Studies 06/08/18 06/08/18 06/08/18 Range/Units 05:33 05:30 05:30 WBC (4.5-11.0) 10^3/ul RBC (3.5-6.1) 10^6/uL Hgb (12.0-16.0) g/dL Hct (36.0-48.0) % MCV (80.0-105.0) fl MCH (25.0-35.0) pg MCHC (31.0-37.0) g/dl RDW (11.5-14.5) % Plt Count (120.0-450.0) 10^3/uL MPV (7.0-11.0) fl Gran % (50.0-68.0) % Lymph % (Auto) (22.0-35.0) % [place] % (Auto) (1.0-6.0) % Eos % (Auto) (1.5-5.0) % Baso % (Auto) (0.0-3.0) % Gran # (1.4-6.5) Lymph # (Auto) (1.2-3.4) [place] # (Auto) (0.1-0.6) Eos # (Auto) (0.0-0.7) Baso # (Auto) (0.0-2.0) K/mm3 Neutrophils % (Manual) (50.0-70.0) % Band Neutrophils % (0-2) % Lymphocytes % (Manual) (22.0-35.0) % Monocytes % (Manual) (1.0-6.0) % Metamyelocytes % % Platelet Evaluation (NORMAL) Large Platelets PT (9.4-12.5) SECONDS INR APTT (25.1-36.5) Seconds pO2 (30-55) mm/Hg VBG pH (7.32-7.43) VBG pCO2 (40-60) VBG HCO3 (21-28) mmol/l VBG Total CO2 (22-28) mmol.L VBG O2 Sat (Calc) (40-65) % VBG Base Excess (0.0-2.0) mmol/L VBG Potassium (3.6-5.2) mmol/L Glucose (65-105) mg/dl Lactate (0.7-2.1) mmol/L FiO2 % Sodium 141 (132-148) mmol/L Potassium 3.9 (3.6-5.0) mmol/L Chloride 109 H (98-107) mmol/L Carbon Dioxide 25 (21-33) mmol/L Anion Gap 11 (10-20) BUN 12 (7-21) mg/dL Creatinine 1.1 (0.7-1.2) mg/dl Est GFR ( Amer) > 60 Est GFR (Non-Af Amer) 53 POC Glucose (mg/dL) 306 H (65-110) mg/dL Random Glucose 325 H* (70-110) mg/dL Calcium 9.0 (8.4-10.5) mg/dL Phosphorus 2.4 L (2.5-4.5) mg/dL Magnesium 2.1 (1.7-2.2) mg/dL Total Bilirubin 0.6 (0.2-1.3) mg/dL AST 23 (14-36) U/L ALT 16 (7-56) U/L Alkaline Phosphatase 200 H D (38-126) U/L Troponin I ng/mL NT-Pro-B Natriuret Pep (0-450) pg/mL Total Protein 6.7 (5.8-8.3) g/dL Albumin 3.1 (3.0-4.8) g/dL Globulin 3.6 gm/dL Albumin/Globulin Ratio 0.9 L (1.1-1.8) Triglycerides 356 H (35-160) mg/dL Cholesterol 108 L (130-200) mg/dL LDL Cholesterol Direct < 30 (0-129) mg/dL HDL Cholesterol 18 L (29-60) mg/dL Lipase 20 L (23-300) U/L TSH 3rd Generation 0.37 L (0.46-4.68) mIU/mL Venous Blood Potassium (3.6-5.2) mmol/L Urine Color (YELLOW) Urine Appearance (CLEAR) Urine pH (4.7-8.0) Ur Specific [place] (1.005-1.035) Urine Protein (<30 mg/dL) mg/dL Urine Glucose (UA) (NEGATIVE) mg/dL Urine Ketones (NEGATIVE) mg/dL Urine Blood (NEGATIVE) Urine Nitrate (NEGATIVE) Urine Bilirubin (NEGATIVE) Urine Urobilinogen (<1 E.U./dL) E.U./dL Ur Leukocyte Esterase (NEGATIVE) Rafy/uL Urine RBC (0-2) /hpf Urine WBC (0-6) /hpf Ur Epithelial Cells (0-5) /hpf Urine Bacteria (NEG) Urine Other 06/08/18 06/08/18 06/08/18 Range/Units 04:03 02:58 02:00 WBC (4.5-11.0) 10^3/ul RBC (3.5-6.1) 10^6/uL Hgb (12.0-16.0) g/dL Hct (36.0-48.0) % MCV (80.0-105.0) fl MCH (25.0-35.0) pg MCHC (31.0-37.0) g/dl RDW (11.5-14.5) % Plt Count (120.0-450.0) 10^3/uL MPV (7.0-11.0) fl Gran % (50.0-68.0) % Lymph % (Auto) (22.0-35.0) % [place] % (Auto) (1.0-6.0) % Eos % (Auto) (1.5-5.0) % Baso % (Auto) (0.0-3.0) % Gran # (1.4-6.5) Lymph # (Auto) (1.2-3.4) [place] # (Auto) (0.1-0.6) Eos # (Auto) (0.0-0.7) Baso # (Auto) (0.0-2.0) K/mm3 Neutrophils % (Manual) (50.0-70.0) % Band Neutrophils % (0-2) % Lymphocytes % (Manual) (22.0-35.0) % Monocytes % (Manual) (1.0-6.0) % Metamyelocytes % % Platelet Evaluation (NORMAL) Large Platelets PT (9.4-12.5) SECONDS INR APTT (25.1-36.5) Seconds pO2 (30-55) mm/Hg VBG pH (7.32-7.43) VBG pCO2 (40-60) VBG HCO3 (21-28) mmol/l VBG Total CO2 (22-28) mmol.L VBG O2 Sat (Calc) (40-65) % VBG Base Excess (0.0-2.0) mmol/L VBG Potassium (3.6-5.2) mmol/L Glucose (65-105) mg/dl Lactate (0.7-2.1) mmol/L FiO2 % Sodium (132-148) mmol/L Potassium (3.6-5.0) mmol/L Chloride (98-107) mmol/L Carbon Dioxide (21-33) mmol/L Anion Gap (10-20) BUN (7-21) mg/dL Creatinine (0.7-1.2) mg/dl Est GFR ( Amer) Est GFR (Non-Af Amer) POC Glucose (mg/dL) 369 H 323 H 331 H (65-110) mg/dL Random Glucose (70-110) mg/dL Calcium (8.4-10.5) mg/dL Phosphorus (2.5-4.5) mg/dL Magnesium (1.7-2.2) mg/dL Total Bilirubin (0.2-1.3) mg/dL AST (14-36) U/L ALT (7-56) U/L Alkaline Phosphatase (38-126) U/L Troponin I ng/mL NT-Pro-B Natriuret Pep (0-450) pg/mL Total Protein (5.8-8.3) g/dL Albumin (3.0-4.8) g/dL Globulin gm/dL Albumin/Globulin Ratio (1.1-1.8) Triglycerides (35-160) mg/dL Cholesterol (130-200) mg/dL LDL Cholesterol Direct (0-129) mg/dL HDL Cholesterol (29-60) mg/dL Lipase (23-300) U/L TSH 3rd Generation (0.46-4.68) mIU/mL Venous Blood Potassium (3.6-5.2) mmol/L Urine Color (YELLOW) Urine Appearance (CLEAR) Urine pH (4.7-8.0) Ur Specific [place] (1.005-1.035) Urine Protein (<30 mg/dL) mg/dL Urine Glucose (UA) (NEGATIVE) mg/dL Urine Ketones (NEGATIVE) mg/dL Urine Blood (NEGATIVE) Urine Nitrate (NEGATIVE) Urine Bilirubin (NEGATIVE) Urine Urobilinogen (<1 E.U./dL) E.U./dL Ur Leukocyte Esterase (NEGATIVE) Rafy/uL Urine RBC (0-2) /hpf Urine WBC (0-6) /hpf Ur Epithelial Cells (0-5) /hpf Urine Bacteria (NEG) Urine Other 06/08/18 06/08/18 06/08/18 Range/Units 02:00 01:14 00:10 WBC (4.5-11.0) 10^3/ul RBC (3.5-6.1) 10^6/uL Hgb (12.0-16.0) g/dL Hct (36.0-48.0) % MCV (80.0-105.0) fl MCH (25.0-35.0) pg MCHC (31.0-37.0) g/dl RDW (11.5-14.5) % Plt Count (120.0-450.0) 10^3/uL MPV (7.0-11.0) fl Gran % (50.0-68.0) % Lymph % (Auto) (22.0-35.0) % [place] % (Auto) (1.0-6.0) % Eos % (Auto) (1.5-5.0) % Baso % (Auto) (0.0-3.0) % Gran # (1.4-6.5) Lymph # (Auto) (1.2-3.4) [place] # (Auto) (0.1-0.6) Eos # (Auto) (0.0-0.7) Baso # (Auto) (0.0-2.0) K/mm3 Neutrophils % (Manual) (50.0-70.0) % Band Neutrophils % (0-2) % Lymphocytes % (Manual) (22.0-35.0) % Monocytes % (Manual) (1.0-6.0) % Metamyelocytes % % Platelet Evaluation (NORMAL) Large Platelets PT (9.4-12.5) SECONDS INR APTT (25.1-36.5) Seconds pO2 (30-55) mm/Hg VBG pH (7.32-7.43) VBG pCO2 (40-60) VBG HCO3 (21-28) mmol/l VBG Total CO2 (22-28) mmol.L VBG O2 Sat (Calc) (40-65) % VBG Base Excess (0.0-2.0) mmol/L VBG Potassium (3.6-5.2) mmol/L Glucose (65-105) mg/dl Lactate (0.7-2.1) mmol/L FiO2 % Sodium 140 (132-148) mmol/L Potassium 4.2 (3.6-5.0) mmol/L Chloride 108 H (98-107) mmol/L Carbon Dioxide 23 (21-33) mmol/L Anion Gap 12 (10-20) BUN 11 (7-21) mg/dL Creatinine 1.1 (0.7-1.2) mg/dl Est GFR ( Amer) > 60 Est GFR (Non-Af Amer) 53 POC Glucose (mg/dL) 326 H 359 H (65-110) mg/dL Random Glucose 361 H* (70-110) mg/dL Calcium 8.7 (8.4-10.5) mg/dL Phosphorus (2.5-4.5) mg/dL Magnesium (1.7-2.2) mg/dL Total Bilirubin (0.2-1.3) mg/dL AST (14-36) U/L ALT (7-56) U/L Alkaline Phosphatase (38-126) U/L Troponin I 0.03 D ng/mL NT-Pro-B Natriuret Pep (0-450) pg/mL Total Protein (5.8-8.3) g/dL Albumin (3.0-4.8) g/dL Globulin gm/dL Albumin/Globulin Ratio (1.1-1.8) Triglycerides (35-160) mg/dL Cholesterol (130-200) mg/dL LDL Cholesterol Direct (0-129) mg/dL HDL Cholesterol (29-60) mg/dL Lipase (23-300) U/L TSH 3rd Generation (0.46-4.68) mIU/mL Venous Blood Potassium (3.6-5.2) mmol/L Urine Color (YELLOW) Urine Appearance (CLEAR) Urine pH (4.7-8.0) Ur Specific [place] (1.005-1.035) Urine Protein (<30 mg/dL) mg/dL Urine Glucose (UA) (NEGATIVE) mg/dL Urine Ketones (NEGATIVE) mg/dL Urine Blood (NEGATIVE) Urine Nitrate (NEGATIVE) Urine Bilirubin (NEGATIVE) Urine Urobilinogen (<1 E.U./dL) E.U./dL Ur Leukocyte Esterase (NEGATIVE) Rafy/uL Urine RBC (0-2) /hpf Urine WBC (0-6) /hpf Ur Epithelial Cells (0-5) /hpf Urine Bacteria (NEG) Urine Other 06/07/18 06/07/18 06/07/18 Range/Units 23:30 21:10 20:07 WBC (4.5-11.0) 10^3/ul RBC (3.5-6.1) 10^6/uL Hgb (12.0-16.0) g/dL Hct (36.0-48.0) % MCV (80.0-105.0) fl MCH (25.0-35.0) pg MCHC (31.0-37.0) g/dl RDW (11.5-14.5) % Plt Count (120.0-450.0) 10^3/uL MPV (7.0-11.0) fl Gran % (50.0-68.0) % Lymph % (Auto) (22.0-35.0) % [place] % (Auto) (1.0-6.0) % Eos % (Auto) (1.5-5.0) % Baso % (Auto) (0.0-3.0) % Gran # (1.4-6.5) Lymph # (Auto) (1.2-3.4) [place] # (Auto) (0.1-0.6) Eos # (Auto) (0.0-0.7) Baso # (Auto) (0.0-2.0) K/mm3 Neutrophils % (Manual) (50.0-70.0) % Band Neutrophils % (0-2) % Lymphocytes % (Manual) (22.0-35.0) % Monocytes % (Manual) (1.0-6.0) % Metamyelocytes % % Platelet Evaluation (NORMAL) Large Platelets PT (9.4-12.5) SECONDS INR APTT (25.1-36.5) Seconds pO2 (30-55) mm/Hg VBG pH (7.32-7.43) VBG pCO2 (40-60) VBG HCO3 (21-28) mmol/l VBG Total CO2 (22-28) mmol.L VBG O2 Sat (Calc) (40-65) % VBG Base Excess (0.0-2.0) mmol/L VBG Potassium (3.6-5.2) mmol/L Glucose (65-105) mg/dl Lactate (0.7-2.1) mmol/L FiO2 % Sodium 139 (132-148) mmol/L Potassium 4.3 (3.6-5.0) mmol/L Chloride 106 (98-107) mmol/L Carbon Dioxide 22 (21-33) mmol/L Anion Gap 15 (10-20) BUN 12 (7-21) mg/dL Creatinine 1.1 (0.7-1.2) mg/dl Est GFR ( Amer) > 60 Est GFR (Non-Af Amer) 53 POC Glucose (mg/dL) 330 H 430 H* (65-110) mg/dL Random Glucose 422 H* D (70-110) mg/dL Calcium 8.9 (8.4-10.5) mg/dL Phosphorus (2.5-4.5) mg/dL Magnesium (1.7-2.2) mg/dL Total Bilirubin (0.2-1.3) mg/dL AST (14-36) U/L ALT (7-56) U/L Alkaline Phosphatase (38-126) U/L Troponin I 0.01 ng/mL NT-Pro-B Natriuret Pep (0-450) pg/mL Total Protein (5.8-8.3) g/dL Albumin (3.0-4.8) g/dL Globulin gm/dL Albumin/Globulin Ratio (1.1-1.8) Triglycerides (35-160) mg/dL Cholesterol (130-200) mg/dL LDL Cholesterol Direct (0-129) mg/dL HDL Cholesterol (29-60) mg/dL Lipase (23-300) U/L TSH 3rd Generation (0.46-4.68) mIU/mL Venous Blood Potassium (3.6-5.2) mmol/L Urine Color (YELLOW) Urine Appearance (CLEAR) Urine pH (4.7-8.0) Ur Specific [place] (1.005-1.035) Urine Protein (<30 mg/dL) mg/dL Urine Glucose (UA) (NEGATIVE) mg/dL Urine Ketones (NEGATIVE) mg/dL Urine Blood (NEGATIVE) Urine Nitrate (NEGATIVE) Urine Bilirubin (NEGATIVE) Urine Urobilinogen (<1 E.U./dL) E.U./dL Ur Leukocyte Esterase (NEGATIVE) Rafy/uL Urine RBC (0-2) /hpf Urine WBC (0-6) /hpf Ur Epithelial Cells (0-5) /hpf Urine Bacteria (NEG) Urine Other 06/07/18 06/07/18 06/07/18 Range/Units 18:56 18:55 17:51 WBC (4.5-11.0) 10^3/ul RBC (3.5-6.1) 10^6/uL Hgb (12.0-16.0) g/dL Hct (36.0-48.0) % MCV (80.0-105.0) fl MCH (25.0-35.0) pg MCHC (31.0-37.0) g/dl RDW (11.5-14.5) % Plt Count (120.0-450.0) 10^3/uL MPV (7.0-11.0) fl Gran % (50.0-68.0) % Lymph % (Auto) (22.0-35.0) % [place] % (Auto) (1.0-6.0) % Eos % (Auto) (1.5-5.0) % Baso % (Auto) (0.0-3.0) % Gran # (1.4-6.5) Lymph # (Auto) (1.2-3.4) [place] # (Auto) (0.1-0.6) Eos # (Auto) (0.0-0.7) Baso # (Auto) (0.0-2.0) K/mm3 Neutrophils % (Manual) (50.0-70.0) % Band Neutrophils % (0-2) % Lymphocytes % (Manual) (22.0-35.0) % Monocytes % (Manual) (1.0-6.0) % Metamyelocytes % % Platelet Evaluation (NORMAL) Large Platelets PT (9.4-12.5) SECONDS INR APTT (25.1-36.5) Seconds pO2 88 H (30-55) mm/Hg VBG pH 7.32 (7.32-7.43) VBG pCO2 39.0 L (40-60) VBG HCO3 20.1 L (21-28) mmol/l VBG Total CO2 21.3 L (22-28) mmol.L VBG O2 Sat (Calc) 98.5 H (40-65) % VBG Base Excess -5.6 L (0.0-2.0) mmol/L VBG Potassium 5.3 H (3.6-5.2) mmol/L Glucose 671 H* (65-105) mg/dl Lactate 3.5 H (0.7-2.1) mmol/L FiO2 21.0 % Sodium 132.0 (132-148) mmol/L Potassium (3.6-5.0) mmol/L Chloride 96.0 L (98-107) mmol/L Carbon Dioxide (21-33) mmol/L Anion Gap (10-20) BUN (7-21) mg/dL Creatinine (0.7-1.2) mg/dl Est GFR ( Amer) Est GFR (Non-Af Amer) POC Glucose (mg/dL) > 500 H* > 500 H* (65-110) mg/dL Random Glucose (70-110) mg/dL Calcium (8.4-10.5) mg/dL Phosphorus (2.5-4.5) mg/dL Magnesium (1.7-2.2) mg/dL Total Bilirubin (0.2-1.3) mg/dL AST (14-36) U/L ALT (7-56) U/L Alkaline Phosphatase (38-126) U/L Troponin I ng/mL NT-Pro-B Natriuret Pep (0-450) pg/mL Total Protein (5.8-8.3) g/dL Albumin (3.0-4.8) g/dL Globulin gm/dL Albumin/Globulin Ratio (1.1-1.8) Triglycerides (35-160) mg/dL Cholesterol (130-200) mg/dL LDL Cholesterol Direct (0-129) mg/dL HDL Cholesterol (29-60) mg/dL Lipase (23-300) U/L TSH 3rd Generation (0.46-4.68) mIU/mL Venous Blood Potassium 5.3 H (3.6-5.2) mmol/L Urine Color (YELLOW) Urine Appearance (CLEAR) Urine pH (4.7-8.0) Ur Specific [place] (1.005-1.035) Urine Protein (<30 mg/dL) mg/dL Urine Glucose (UA) (NEGATIVE) mg/dL Urine Ketones (NEGATIVE) mg/dL Urine Blood (NEGATIVE) Urine Nitrate (NEGATIVE) Urine Bilirubin (NEGATIVE) Urine Urobilinogen (<1 E.U./dL) E.U./dL Ur Leukocyte Esterase (NEGATIVE) Rafy/uL Urine RBC (0-2) /hpf Urine WBC (0-6) /hpf Ur Epithelial Cells (0-5) /hpf Urine Bacteria (NEG) Urine Other 06/07/18 06/07/18 06/07/18 Range/Units 16:26 16:10 15:50 WBC (4.5-11.0) 10^3/ul RBC (3.5-6.1) 10^6/uL Hgb (12.0-16.0) g/dL Hct (36.0-48.0) % MCV (80.0-105.0) fl MCH (25.0-35.0) pg MCHC (31.0-37.0) g/dl RDW (11.5-14.5) % Plt Count (120.0-450.0) 10^3/uL MPV (7.0-11.0) fl Gran % (50.0-68.0) % Lymph % (Auto) (22.0-35.0) % [place] % (Auto) (1.0-6.0) % Eos % (Auto) (1.5-5.0) % Baso % (Auto) (0.0-3.0) % Gran # (1.4-6.5) Lymph # (Auto) (1.2-3.4) [place] # (Auto) (0.1-0.6) Eos # (Auto) (0.0-0.7) Baso # (Auto) (0.0-2.0) K/mm3 Neutrophils % (Manual) (50.0-70.0) % Band Neutrophils % (0-2) % Lymphocytes % (Manual) (22.0-35.0) % Monocytes % (Manual) (1.0-6.0) % Metamyelocytes % % Platelet Evaluation (NORMAL) Large Platelets PT (9.4-12.5) SECONDS INR APTT (25.1-36.5) Seconds pO2 37 (30-55) mm/Hg VBG pH 7.21 L (7.32-7.43) VBG pCO2 45.0 (40-60) VBG HCO3 18.0 L (21-28) mmol/l VBG Total CO2 19.4 L (22-28) mmol.L VBG O2 Sat (Calc) 65.6 H (40-65) % VBG Base Excess -9.7 L (0.0-2.0) mmol/L VBG Potassium 11.3 H* (3.6-5.2) mmol/L Glucose > 750 H* D (65-105) mg/dl Lactate 6.9 H* (0.7-2.1) mmol/L FiO2 21.0 % Sodium 124.0 L (132-148) mmol/L Potassium (3.6-5.0) mmol/L Chloride 87.0 L (98-107) mmol/L Carbon Dioxide (21-33) mmol/L Anion Gap (10-20) BUN (7-21) mg/dL Creatinine (0.7-1.2) mg/dl Est GFR ( Amer) Est GFR (Non-Af Amer) POC Glucose (mg/dL) > 500 H* (65-110) mg/dL Random Glucose (70-110) mg/dL Calcium (8.4-10.5) mg/dL Phosphorus (2.5-4.5) mg/dL Magnesium (1.7-2.2) mg/dL Total Bilirubin (0.2-1.3) mg/dL AST (14-36) U/L ALT (7-56) U/L Alkaline Phosphatase (38-126) U/L Troponin I ng/mL NT-Pro-B Natriuret Pep (0-450) pg/mL Total Protein (5.8-8.3) g/dL Albumin (3.0-4.8) g/dL Globulin gm/dL Albumin/Globulin Ratio (1.1-1.8) Triglycerides (35-160) mg/dL Cholesterol (130-200) mg/dL LDL Cholesterol Direct (0-129) mg/dL HDL Cholesterol (29-60) mg/dL Lipase (23-300) U/L TSH 3rd Generation (0.46-4.68) mIU/mL Venous Blood Potassium 11.3 H* (3.6-5.2) mmol/L Urine Color Straw (YELLOW) Urine Appearance Sl cloudy (CLEAR) Urine pH 6.0 (4.7-8.0) Ur Specific [place] 1.010 (1.005-1.035) Urine Protein 30 H (<30 mg/dL) mg/dL Urine Glucose (UA) >=1000 (NEGATIVE) mg/dL Urine Ketones 40 H (NEGATIVE) mg/dL Urine Blood Large H (NEGATIVE) Urine Nitrate Negative (NEGATIVE) Urine Bilirubin Negative (NEGATIVE) Urine Urobilinogen 0.2 (<1 E.U./dL) E.U./dL Ur Leukocyte Esterase Negative (NEGATIVE) Rafy/uL Urine RBC 2 - 5 (0-2) /hpf Urine WBC 5 - 10 (0-6) /hpf Ur Epithelial Cells 0 - 2 (0-5) /hpf Urine Bacteria Trace (NEG) Urine Other Trichomonas 06/07/18 06/07/18 06/07/18 Range/Units 15:40 15:40 15:40 WBC 16.1 H D (4.5-11.0) 10^3/ul RBC 5.37 (3.5-6.1) 10^6/uL Hgb 13.8 (12.0-16.0) g/dL Hct 42.1 (36.0-48.0) % MCV 78.4 L (80.0-105.0) fl MCH 25.7 (25.0-35.0) pg MCHC 32.8 (31.0-37.0) g/dl RDW 14.5 (11.5-14.5) % Plt Count 308 (120.0-450.0) 10^3/uL MPV 10.5 (7.0-11.0) fl Gran % 90.2 H (50.0-68.0) % Lymph % (Auto) 8.2 L (22.0-35.0) % [place] % (Auto) 1.5 (1.0-6.0) % Eos % (Auto) 0.0 L (1.5-5.0) % Baso % (Auto) 0.1 (0.0-3.0) % Gran # 14.51 H (1.4-6.5) Lymph # (Auto) 1.3 (1.2-3.4) [place] # (Auto) 0.2 (0.1-0.6) Eos # (Auto) 0.0 (0.0-0.7) Baso # (Auto) 0.01 (0.0-2.0) K/mm3 Neutrophils % (Manual) 76 H (50.0-70.0) % Band Neutrophils % 1 (0-2) % Lymphocytes % (Manual) 19 L (22.0-35.0) % Monocytes % (Manual) 3 (1.0-6.0) % Metamyelocytes % 1 % Platelet Evaluation Normal (NORMAL) Large Platelets Present PT 14.6 H (9.4-12.5) SECONDS INR 1.27 APTT 27.2 (25.1-36.5) Seconds pO2 (30-55) mm/Hg VBG pH (7.32-7.43) VBG pCO2 (40-60) VBG HCO3 (21-28) mmol/l VBG Total CO2 (22-28) mmol.L VBG O2 Sat (Calc) (40-65) % VBG Base Excess (0.0-2.0) mmol/L VBG Potassium (3.6-5.2) mmol/L Glucose (65-105) mg/dl Lactate (0.7-2.1) mmol/L FiO2 % Sodium 129 L (132-148) mmol/L Potassium 6.5 H* D (3.6-5.0) mmol/L Chloride 91 L (98-107) mmol/L Carbon Dioxide 17 L (21-33) mmol/L Anion Gap 28 H (10-20) BUN 13 (7-21) mg/dL Creatinine 1.2 (0.7-1.2) mg/dl Est GFR ( Amer) 58 Est GFR (Non-Af Amer) 48 POC Glucose (mg/dL) (65-110) mg/dL Random Glucose 769 H* D (70-110) mg/dL Calcium 10.6 H (8.4-10.5) mg/dL Phosphorus 4.1 (2.5-4.5) mg/dL Magnesium 2.2 (1.7-2.2) mg/dL Total Bilirubin 1.3 (0.2-1.3) mg/dL AST 25 (14-36) U/L ALT 21 (7-56) U/L Alkaline Phosphatase 322 H D (38-126) U/L Troponin I < 0.01 D ng/mL NT-Pro-B Natriuret Pep 426 (0-450) pg/mL Total Protein 8.4 H (5.8-8.3) g/dL Albumin 4.2 (3.0-4.8) g/dL Globulin 4.2 gm/dL Albumin/Globulin Ratio 1.0 L (1.1-1.8) Triglycerides (35-160) mg/dL Cholesterol (130-200) mg/dL LDL Cholesterol Direct (0-129) mg/dL HDL Cholesterol (29-60) mg/dL Lipase (23-300) U/L TSH 3rd Generation (0.46-4.68) mIU/mL Venous Blood Potassium (3.6-5.2) mmol/L Urine Color (YELLOW) Urine Appearance (CLEAR) Urine pH (4.7-8.0) Ur Specific [place] (1.005-1.035) Urine Protein (<30 mg/dL) mg/dL Urine Glucose (UA) (NEGATIVE) mg/dL Urine Ketones (NEGATIVE) mg/dL Urine Blood (NEGATIVE) Urine Nitrate (NEGATIVE) Urine Bilirubin (NEGATIVE) Urine Urobilinogen (<1 E.U./dL) E.U./dL Ur Leukocyte Esterase (NEGATIVE) Rafy/uL Urine RBC (0-2) /hpf Urine WBC (0-6) /hpf Ur Epithelial Cells (0-5) /hpf Urine Bacteria (NEG) Urine Other Laboratory Results - last 24 hr 06/07/18 06/07/18 06/07/18 15:40 15:40 15:40 WBC 16.1 H D RBC 5.37 Hgb 13.8 Hct 42.1 MCV 78.4 L MCH 25.7 MCHC 32.8 RDW 14.5 Plt Count 308 MPV 10.5 Gran % 90.2 H Lymph % (Auto) 8.2 L [place] % (Auto) 1.5 Eos % (Auto) 0.0 L Baso % (Auto) 0.1 Gran # 14.51 H Lymph # (Auto) 1.3 [place] # (Auto) 0.2 Eos # (Auto) 0.0 Baso # (Auto) 0.01 Neutrophils % (Manual) 76 H Band Neutrophils % 1 Lymphocytes % (Manual) 19 L Monocytes % (Manual) 3 Metamyelocytes % 1 Platelet Evaluation Normal Large Platelets Present PT 14.6 H INR 1.27 APTT 27.2 pO2 VBG pH VBG pCO2 VBG HCO3 VBG Total CO2 VBG O2 Sat (Calc) VBG Base Excess VBG Potassium Glucose Lactate FiO2 Sodium 129 L Potassium 6.5 H* D Chloride 91 L Carbon Dioxide 17 L Anion Gap 28 H BUN 13 Creatinine 1.2 Est GFR ( Amer) 58 Est GFR (Non-Af Amer) 48 POC Glucose (mg/dL) Random Glucose 769 H* D Calcium 10.6 H Phosphorus 4.1 Magnesium 2.2 Total Bilirubin 1.3 AST 25 ALT 21 Alkaline Phosphatase 322 H D Troponin I < 0.01 D NT-Pro-B Natriuret Pep 426 Total Protein 8.4 H Albumin 4.2 Globulin 4.2 Albumin/Globulin Ratio 1.0 L Triglycerides Cholesterol LDL Cholesterol Direct HDL Cholesterol Lipase TSH 3rd Generation Venous Blood Potassium Urine Color Urine Appearance Urine pH Ur Specific [place] Urine Protein Urine Glucose (UA) Urine Ketones Urine Blood Urine Nitrate Urine Bilirubin Urine Urobilinogen Ur Leukocyte Esterase Urine RBC Urine WBC Ur Epithelial Cells Urine Bacteria Urine Other 06/07/18 06/07/18 06/07/18 15:50 16:10 16:26 WBC RBC Hgb Hct MCV MCH MCHC RDW Plt Count MPV Gran % Lymph % (Auto) [place] % (Auto) Eos % (Auto) Baso % (Auto) Gran # Lymph # (Auto) [place] # (Auto) Eos # (Auto) Baso # (Auto) Neutrophils % (Manual) Band Neutrophils % Lymphocytes % (Manual) Monocytes % (Manual) Metamyelocytes % Platelet Evaluation Large Platelets PT INR APTT pO2 37 VBG pH 7.21 L VBG pCO2 45.0 VBG HCO3 18.0 L VBG Total CO2 19.4 L VBG O2 Sat (Calc) 65.6 H VBG Base Excess -9.7 L VBG Potassium 11.3 H* Glucose > 750 H* D Lactate 6.9 H* FiO2 21.0 Sodium 124.0 L Potassium Chloride 87.0 L Carbon Dioxide Anion Gap BUN Creatinine Est GFR ( Amer) Est GFR (Non-Af Amer) POC Glucose (mg/dL) > 500 H* Random Glucose Calcium Phosphorus Magnesium Total Bilirubin AST ALT Alkaline Phosphatase Troponin I NT-Pro-B Natriuret Pep Total Protein Albumin Globulin Albumin/Globulin Ratio Triglycerides Cholesterol LDL Cholesterol Direct HDL Cholesterol Lipase TSH 3rd Generation Venous Blood Potassium 11.3 H* Urine Color Straw Urine Appearance Sl cloudy Urine pH 6.0 Ur Specific [place] 1.010 Urine Protein 30 H Urine Glucose (UA) >=1000 Urine Ketones 40 H Urine Blood Large H Urine Nitrate Negative Urine Bilirubin Negative Urine Urobilinogen 0.2 Ur Leukocyte Esterase Negative Urine RBC 2 - 5 Urine WBC 5 - 10 Ur Epithelial Cells 0 - 2 Urine Bacteria Trace Urine Other Trichomonas 06/07/18 06/07/18 06/07/18 17:51 18:55 18:56 WBC RBC Hgb Hct MCV MCH MCHC RDW Plt Count MPV Gran % Lymph % (Auto) [place] % (Auto) Eos % (Auto) Baso % (Auto) Gran # Lymph # (Auto) [place] # (Auto) Eos # (Auto) Baso # (Auto) Neutrophils % (Manual) Band Neutrophils % Lymphocytes % (Manual) Monocytes % (Manual) Metamyelocytes % Platelet Evaluation Large Platelets PT INR APTT pO2 88 H VBG pH 7.32 VBG pCO2 39.0 L VBG HCO3 20.1 L VBG Total CO2 21.3 L VBG O2 Sat (Calc) 98.5 H VBG Base Excess -5.6 L VBG Potassium 5.3 H Glucose 671 H* Lactate 3.5 H FiO2 21.0 Sodium 132.0 Potassium Chloride 96.0 L Carbon Dioxide Anion Gap BUN Creatinine Est GFR ( Amer) Est GFR (Non-Af Amer) POC Glucose (mg/dL) > 500 H* > 500 H* Random Glucose Calcium Phosphorus Magnesium Total Bilirubin AST ALT Alkaline Phosphatase Troponin I NT-Pro-B Natriuret Pep Total Protein Albumin Globulin Albumin/Globulin Ratio Triglycerides Cholesterol LDL Cholesterol Direct HDL Cholesterol Lipase TSH 3rd Generation Venous Blood Potassium 5.3 H Urine Color Urine Appearance Urine pH Ur Specific [place] Urine Protein Urine Glucose (UA) Urine Ketones Urine Blood Urine Nitrate Urine Bilirubin Urine Urobilinogen Ur Leukocyte Esterase Urine RBC Urine WBC Ur Epithelial Cells Urine Bacteria Urine Other 06/07/18 06/07/18 06/07/18 20:07 21:10 23:30 WBC RBC Hgb Hct MCV MCH MCHC RDW Plt Count MPV Gran % Lymph % (Auto) [place] % (Auto) Eos % (Auto) Baso % (Auto) Gran # Lymph # (Auto) [place] # (Auto) Eos # (Auto) Baso # (Auto) Neutrophils % (Manual) Band Neutrophils % Lymphocytes % (Manual) Monocytes % (Manual) Metamyelocytes % Platelet Evaluation Large Platelets PT INR APTT pO2 VBG pH VBG pCO2 VBG HCO3 VBG Total CO2 VBG O2 Sat (Calc) VBG Base Excess VBG Potassium Glucose Lactate FiO2 Sodium 139 Potassium 4.3 Chloride 106 Carbon Dioxide 22 Anion Gap 15 BUN 12 Creatinine 1.1 Est GFR ( Amer) > 60 Est GFR (Non-Af Amer) 53 POC Glucose (mg/dL) 430 H* 330 H Random Glucose 422 H* D Calcium 8.9 Phosphorus Magnesium Total Bilirubin AST ALT Alkaline Phosphatase Troponin I 0.01 NT-Pro-B Natriuret Pep Total Protein Albumin Globulin Albumin/Globulin Ratio Triglycerides Cholesterol LDL Cholesterol Direct HDL Cholesterol Lipase TSH 3rd Generation Venous Blood Potassium Urine Color Urine Appearance Urine pH Ur Specific [place] Urine Protein Urine Glucose (UA) Urine Ketones Urine Blood Urine Nitrate Urine Bilirubin Urine Urobilinogen Ur Leukocyte Esterase Urine RBC Urine WBC Ur Epithelial Cells Urine Bacteria Urine Other 06/08/18 06/08/18 06/08/18 00:10 01:14 02:00 WBC RBC Hgb Hct MCV MCH MCHC RDW Plt Count MPV Gran % Lymph % (Auto) [place] % (Auto) Eos % (Auto) Baso % (Auto) Gran # Lymph # (Auto) [place] # (Auto) Eos # (Auto) Baso # (Auto) Neutrophils % (Manual) Band Neutrophils % Lymphocytes % (Manual) Monocytes % (Manual) Metamyelocytes % Platelet Evaluation Large Platelets PT INR APTT pO2 VBG pH VBG pCO2 VBG HCO3 VBG Total CO2 VBG O2 Sat (Calc) VBG Base Excess VBG Potassium Glucose Lactate FiO2 Sodium 140 Potassium 4.2 Chloride 108 H Carbon Dioxide 23 Anion Gap 12 BUN 11 Creatinine 1.1 Est GFR ( Amer) > 60 Est GFR (Non-Af Amer) 53 POC Glucose (mg/dL) 359 H 326 H Random Glucose 361 H* Calcium 8.7 Phosphorus Magnesium Total Bilirubin AST ALT Alkaline Phosphatase Troponin I 0.03 D NT-Pro-B Natriuret Pep Total Protein Albumin Globulin Albumin/Globulin Ratio Triglycerides Cholesterol LDL Cholesterol Direct HDL Cholesterol Lipase TSH 3rd Generation Venous Blood Potassium Urine Color Urine Appearance Urine pH Ur Specific [place] Urine Protein Urine Glucose (UA) Urine Ketones Urine Blood Urine Nitrate Urine Bilirubin Urine Urobilinogen Ur Leukocyte Esterase Urine RBC Urine WBC Ur Epithelial Cells Urine Bacteria Urine Other 06/08/18 06/08/18 06/08/18 02:00 02:58 04:03 WBC RBC Hgb Hct MCV MCH MCHC RDW Plt Count MPV Gran % Lymph % (Auto) [place] % (Auto) Eos % (Auto) Baso % (Auto) Gran # Lymph # (Auto) [place] # (Auto) Eos # (Auto) Baso # (Auto) Neutrophils % (Manual) Band Neutrophils % Lymphocytes % (Manual) Monocytes % (Manual) Metamyelocytes % Platelet Evaluation Large Platelets PT INR APTT pO2 VBG pH VBG pCO2 VBG HCO3 VBG Total CO2 VBG O2 Sat (Calc) VBG Base Excess VBG Potassium Glucose Lactate FiO2 Sodium Potassium Chloride Carbon Dioxide Anion Gap BUN Creatinine Est GFR ( Amer) Est GFR (Non-Af Amer) POC Glucose (mg/dL) 331 H 323 H 369 H Random Glucose Calcium Phosphorus Magnesium Total Bilirubin AST ALT Alkaline Phosphatase Troponin I NT-Pro-B Natriuret Pep Total Protein Albumin Globulin Albumin/Globulin Ratio Triglycerides Cholesterol LDL Cholesterol Direct HDL Cholesterol Lipase TSH 3rd Generation Venous Blood Potassium Urine Color Urine Appearance Urine pH Ur Specific [place] Urine Protein Urine Glucose (UA) Urine Ketones Urine Blood Urine Nitrate Urine Bilirubin Urine Urobilinogen Ur Leukocyte Esterase Urine RBC Urine WBC Ur Epithelial Cells Urine Bacteria Urine Other 06/08/18 06/08/18 06/08/18 05:30 05:30 05:33 WBC RBC Hgb Hct MCV MCH MCHC RDW Plt Count MPV Gran % Lymph % (Auto) [place] % (Auto) Eos % (Auto) Baso % (Auto) Gran # Lymph # (Auto) [place] # (Auto) Eos # (Auto) Baso # (Auto) Neutrophils % (Manual) Band Neutrophils % Lymphocytes % (Manual) Monocytes % (Manual) Metamyelocytes % Platelet Evaluation Large Platelets PT INR APTT pO2 VBG pH VBG pCO2 VBG HCO3 VBG Total CO2 VBG O2 Sat (Calc) VBG Base Excess VBG Potassium Glucose Lactate FiO2 Sodium 141 Potassium 3.9 Chloride 109 H Carbon Dioxide 25 Anion Gap 11 BUN 12 Creatinine 1.1 Est GFR ( Amer) > 60 Est GFR (Non-Af Amer) 53 POC Glucose (mg/dL) 306 H Random Glucose 325 H* Calcium 9.0 Phosphorus 2.4 L Magnesium 2.1 Total Bilirubin 0.6 AST 23 ALT 16 Alkaline Phosphatase 200 H D Troponin I NT-Pro-B Natriuret Pep Total Protein 6.7 Albumin 3.1 Globulin 3.6 Albumin/Globulin Ratio 0.9 L Triglycerides 356 H Cholesterol 108 L LDL Cholesterol Direct < 30 HDL Cholesterol 18 L Lipase 20 L TSH 3rd Generation 0.37 L Venous Blood Potassium Urine Color Urine Appearance Urine pH Ur Specific [place] Urine Protein Urine Glucose (UA) Urine Ketones Urine Blood Urine Nitrate Urine Bilirubin Urine Urobilinogen Ur Leukocyte Esterase Urine RBC Urine WBC Ur Epithelial Cells Urine Bacteria Urine Other EKG/Cardiology Studies: Cardiology / EKG Studies 06/07/18 15:24 ELECTROCARDIOGRAM Stat Comment: Reason For Exam: Sepsis Patient 06/07/18 21:00 ELECTROCARDIOGRAM Routine Comment: Reason For Exam: DKA 06/08/18 03:00 ELECTROCARDIOGRAM ONCE Comment: Reason For Exam: DKA Fingerstick Blood Sugar Results: 325 Review of Systems - Constitutional Constitutional: Chills - EENT Eyes: absent: Blurred Vision - Cardiovascular Cardiovascular: As Per HPI - Respiratory Respiratory: As Per HPI - Gastrointestinal Gastrointestinal: As Per HPI - Genitourinary Genitourinary: Urinary Frequency. absent: Difficulty Urinating, Dysuria - Integumentary Integumentary: absent: Rash Critical Care Progress Note - Nutrition Nutrition: Nutrition Category Date Time Status NPO Diet [DIET] Diets 06/08/18 Breakfast Ordered Assessment/Plan - Assessment and Plan (Free Text) Assessment: 48 F admitted to ICU for management of DKA and pyelonephritis. Plan: Neuro: -A/o x 3 -No gross neurological deficits Cardio: -Patient persistently tachycardic but improving -Restart home coreg and digoxin -Maintain MAP>65 -Patient is s/p 4 L IVF boluses -D/c IVF as patient has hx of CHF Pulm: -No signs of respiratory distress. CTA B/L -Maintain O2 saturation>95% -O2 NC PRN -Monitor for s/s of volume overload as patient has hx of CHF and is s/p 4 L IVF GI: -Advance to liquid diet as tolerated -Has been receiving zofran for nausea/vomiting -Diffuse abdominal pain likely 2/2 pyelonephritis -Abdomen/pelvis CT in ED consistent with pyelonephritis ID: -Patient with SIRS on admission -Hx of SLE on colchicine -CT abd/pelvis consistent with pyelonephritis -B/c positive for GNR, sensitivities pending -U/c pending -Patient now afebrile with improving tachycardia -Rocephin and zosyn given in ED -Start on meropenem -ID consulted, recs appreciated /Nephro: -Patient reports increased urinary frequency -Likely 2/2 pyelonephritis -UA without pyruia or leukocyte esterase -BUN/Cr stable -UOP > 3000 cc -Na of 129 on admission 2/2 pseudohyponatremia, now resolved -K of 6.5 on admission, no K repletion given -Will repeat K levels this afternoon after starting ISS -Replete electrolytes as needed -Maintain euvolemia Endocrinology: -Patient admitted to ICU for management of DKA -AG of 23 in ED, resolved at 0200 this AM -Insulin drip discontinued -Start ISS ACHS as patient is drinking -Endocrinology consulted, recs appreciated Rheum: -Patient was hx of SLE -Restart colchicine Heme: -H/H stable -Continue to monitor DVT/GI Prophylaxis: Heparin SC and protonix Full Code Will continue to monitor in MICU Case and plan reviewed and discussed with my attending Dr. Darrion Pollard, IM Resident PGY-1 <Edin Maier - Last Filed: 06/08/18 12:18> CCU Objective - Vital Signs / Intake & Output Vital Signs (Last 4 hours): Vital Signs Pulse Resp BP Pulse Ox 06/08/18 09:50 121 H 20 97 06/08/18 09:44 122 H 137/81 06/08/18 09:40 120 H 19 100 06/08/18 09:30 118 H 25 H 100 06/08/18 09:20 119 H 24 100 06/08/18 09:10 120 H 27 H 100 06/08/18 09:00 120 H 16 137/81 100 06/08/18 08:50 120 H 28 H 100 06/08/18 08:40 121 H 100 06/08/18 08:30 122 H 30 H 100 06/08/18 08:20 120 H 25 H 100 Intake and Output (Last 8hrs): Intake & Output 06/07/18 06/08/18 06/08/18 22:59 06:59 14:59 Intake Total 1772 Output Total 1200 1850 Balance -1200 -78 Weight 240 lb Intake: IV 1772 0.9NS IV Bolus 1000 Insulin IV infusion 102 Right Forearm 625 Oral 0 Tube Feeding 0 TPN/PPN 0 Blood Product 0 Lipid 0 Albumin 0 Other 0 Output: Urine 1200 1850 Urine, Voided 1850 Stool 0 Urine/Stool Mix 0 Emesis 0 Oral Regurgitation 0 Other 0 Other: Voiding Method Bedpan # Voids Urine, Voided 3 # Bowel Movements 0 - Medications Active Medications: Active Medications Generic Name Dose Route Start Last Admin Trade Name Freq PRN Reason Stop Dose Admin Acetaminophen 650 mg 06/08/18 07:50 06/08/18 08:10 Tylenol 325mg Tab PO 650 mg Q6H PRN Administration Pain, moderate (4-7) Albuterol/Ipratropium 3 ml 06/08/18 10:34 Duoneb 3 Mg/0.5 Mg (3 Ml) Ud IH [id number] PRN Shortness of Breath Atorvastatin Calcium 20 mg 06/08/18 22:00 Lipitor PO HS [facility]ION Carvedilol 3.125 mg 06/08/18 10:00 06/08/18 09:44 Coreg PO 3.125 mg BID [facility] Administration Colchicine 0.6 mg 06/08/18 10:00 06/08/18 11:00 Colocrys PO 0.6 mg DAILY [facility] Administration Digoxin 0.25 mg 06/08/18 14:00 Lanoxin PO 1400 [facility] Meropenem 500 mg/ Sodium 50 mls @ 100 mls/hr 06/08/18 09:15 06/08/18 09:50 Chloride IVPB 06/08/18 14:29 100 mls/hr Q8 [facility] Administration Protocol Insulin Human Regular 0 units 06/08/18 11:30 06/08/18 11:10 Humulin R High SC 15 units ACHS [facility] Administration Protocol Ondansetron HCl 4 mg 06/07/18 21:18 06/08/18 07:40 Zofran Inj IVP 4 mg Q6H PRN Administration Nausea/Vomiting Pantoprazole Sodium 40 mg 06/09/18 06:00 Protonix Ec Tab PO 0600 [facility] Rivaroxaban 20 mg 06/08/18 10:45 06/08/18 11:10 Xarelto PO 20 mg DAILY [facility] Administration Protocol - Patient Studies Lab Studies: Microbiology Studies 06/07/18 16:10 Urine Culture - Final Urine No Growth (<1,000 CFU/ML) 06/07/18 16:00 Blood Culture - Preliminary Blood Gram Negative Vinny Gram Stain - Final 06/07/18 15:40 Blood Culture - Preliminary Blood Gram Negative Vinny Gram Stain - Final Lab Studies 06/08/18 06/08/18 06/08/18 Range/Units 11:05 10:10 09:54 WBC (4.5-11.0) 10^3/ul RBC (3.5-6.1) 10^6/uL Hgb (12.0-16.0) g/dL Hct (36.0-48.0) % MCV (80.0-105.0) fl MCH (25.0-35.0) pg MCHC (31.0-37.0) g/dl RDW (11.5-14.5) % Plt Count (120.0-450.0) 10^3/uL MPV (7.0-11.0) fl Gran % (50.0-68.0) % Lymph % (Auto) (22.0-35.0) % [place] % (Auto) (1.0-6.0) % Eos % (Auto) (1.5-5.0) % Baso % (Auto) (0.0-3.0) % Gran # (1.4-6.5) Lymph # (Auto) (1.2-3.4) [place] # (Auto) (0.1-0.6) Eos # (Auto) (0.0-0.7) Baso # (Auto) (0.0-2.0) K/mm3 Neutrophils % (Manual) (50.0-70.0) % Band Neutrophils % (0-2) % Lymphocytes % (Manual) (22.0-35.0) % Monocytes % (Manual) (1.0-6.0) % Metamyelocytes % % Platelet Evaluation (NORMAL) Large Platelets PT (9.4-12.5) SECONDS INR APTT (25.1-36.5) Seconds pO2 (30-55) mm/Hg VBG pH (7.32-7.43) VBG pCO2 (40-60) VBG HCO3 (21-28) mmol/l VBG Total CO2 (22-28) mmol.L VBG O2 Sat (Calc) (40-65) % VBG Base Excess (0.0-2.0) mmol/L VBG Potassium (3.6-5.2) mmol/L Glucose (65-105) mg/dl Lactate (0.7-2.1) mmol/L FiO2 % Sodium 139 (132-148) mmol/L Potassium 4.1 (3.6-5.0) mmol/L Chloride 107 (98-107) mmol/L Carbon Dioxide 21 (21-33) mmol/L Anion Gap 15 (10-20) BUN 13 (7-21) mg/dL Creatinine 1.0 (0.7-1.2) mg/dl Est GFR ( Amer) > 60 Est GFR (Non-Af Amer) 59 POC Glucose (mg/dL) 425 H* 335 H (65-110) mg/dL Random Glucose 439 H* D (70-110) mg/dL Hemoglobin A1c (4.2-6.5) % Calcium 8.8 (8.4-10.5) mg/dL Phosphorus (2.5-4.5) mg/dL Magnesium (1.7-2.2) mg/dL Total Bilirubin (0.2-1.3) mg/dL AST (14-36) U/L ALT (7-56) U/L Alkaline Phosphatase (38-126) U/L Troponin I ng/mL NT-Pro-B Natriuret Pep (0-450) pg/mL Total Protein (5.8-8.3) g/dL Albumin (3.0-4.8) g/dL Globulin gm/dL Albumin/Globulin Ratio (1.1-1.8) Triglycerides (35-160) mg/dL Cholesterol (130-200) mg/dL LDL Cholesterol Direct (0-129) mg/dL HDL Cholesterol (29-60) mg/dL Lipase (23-300) U/L TSH 3rd Generation (0.46-4.68) mIU/mL Venous Blood Potassium (3.6-5.2) mmol/L Urine Color (YELLOW) Urine Appearance (CLEAR) Urine pH (4.7-8.0) Ur Specific [place] (1.005-1.035) Urine Protein (<30 mg/dL) mg/dL Urine Glucose (UA) (NEGATIVE) mg/dL Urine Ketones (NEGATIVE) mg/dL Urine Blood (NEGATIVE) Urine Nitrate (NEGATIVE) Urine Bilirubin (NEGATIVE) Urine Urobilinogen (<1 E.U./dL) E.U./dL Ur Leukocyte Esterase (NEGATIVE) Rafy/uL Urine RBC (0-2) /hpf Urine WBC (0-6) /hpf Ur Epithelial Cells (0-5) /hpf Urine Bacteria (NEG) Urine Other 06/08/18 06/08/18 06/08/18 Range/Units 08:04 07:30 05:33 WBC 19.3 H (4.5-11.0) 10^3/ul RBC 4.19 (3.5-6.1) 10^6/uL Hgb 11.0 L D (12.0-16.0) g/dL Hct 32.4 L (36.0-48.0) % MCV 77.3 L (80.0-105.0) fl MCH 26.3 (25.0-35.0) pg MCHC 34.0 (31.0-37.0) g/dl RDW 14.4 (11.5-14.5) % Plt Count 267 (120.0-450.0) 10^3/uL MPV 10.3 (7.0-11.0) fl Gran % 86.2 H (50.0-68.0) % Lymph % (Auto) 8.1 L (22.0-35.0) % [place] % (Auto) 5.5 (1.0-6.0) % Eos % (Auto) 0.1 L (1.5-5.0) % Baso % (Auto) 0.1 (0.0-3.0) % Gran # 16.60 H (1.4-6.5) Lymph # (Auto) 1.6 (1.2-3.4) [place] # (Auto) 1.1 H (0.1-0.6) Eos # (Auto) 0.0 (0.0-0.7) Baso # (Auto) 0.02 (0.0-2.0) K/mm3 Neutrophils % (Manual) (50.0-70.0) % Band Neutrophils % (0-2) % Lymphocytes % (Manual) (22.0-35.0) % Monocytes % (Manual) (1.0-6.0) % Metamyelocytes % % Platelet Evaluation (NORMAL) Large Platelets PT (9.4-12.5) SECONDS INR APTT (25.1-36.5) Seconds pO2 (30-55) mm/Hg VBG pH (7.32-7.43) VBG pCO2 (40-60) VBG HCO3 (21-28) mmol/l VBG Total CO2 (22-28) mmol.L VBG O2 Sat (Calc) (40-65) % VBG Base Excess (0.0-2.0) mmol/L VBG Potassium (3.6-5.2) mmol/L Glucose (65-105) mg/dl Lactate (0.7-2.1) mmol/L FiO2 % Sodium (132-148) mmol/L Potassium (3.6-5.0) mmol/L Chloride (98-107) mmol/L Carbon Dioxide (21-33) mmol/L Anion Gap (10-20) BUN (7-21) mg/dL Creatinine (0.7-1.2) mg/dl Est GFR ( Amer) Est GFR (Non-Af Amer) POC Glucose (mg/dL) 308 H 306 H (65-110) mg/dL Random Glucose (70-110) mg/dL Hemoglobin A1c (4.2-6.5) % Calcium (8.4-10.5) mg/dL Phosphorus (2.5-4.5) mg/dL Magnesium (1.7-2.2) mg/dL Total Bilirubin (0.2-1.3) mg/dL AST (14-36) U/L ALT (7-56) U/L Alkaline Phosphatase (38-126) U/L Troponin I ng/mL NT-Pro-B Natriuret Pep (0-450) pg/mL Total Protein (5.8-8.3) g/dL Albumin (3.0-4.8) g/dL Globulin gm/dL Albumin/Globulin Ratio (1.1-1.8) Triglycerides (35-160) mg/dL Cholesterol (130-200) mg/dL LDL Cholesterol Direct (0-129) mg/dL HDL Cholesterol (29-60) mg/dL Lipase (23-300) U/L TSH 3rd Generation (0.46-4.68) mIU/mL Venous Blood Potassium (3.6-5.2) mmol/L Urine Color (YELLOW) Urine Appearance (CLEAR) Urine pH (4.7-8.0) Ur Specific [place] (1.005-1.035) Urine Protein (<30 mg/dL) mg/dL Urine Glucose (UA) (NEGATIVE) mg/dL Urine Ketones (NEGATIVE) mg/dL Urine Blood (NEGATIVE) Urine Nitrate (NEGATIVE) Urine Bilirubin (NEGATIVE) Urine Urobilinogen (<1 E.U./dL) E.U./dL Ur Leukocyte Esterase (NEGATIVE) Rafy/uL Urine RBC (0-2) /hpf Urine WBC (0-6) /hpf Ur Epithelial Cells (0-5) /hpf Urine Bacteria (NEG) Urine Other 06/08/18 06/08/18 06/08/18 Range/Units 05:30 05:30 05:30 WBC (4.5-11.0) 10^3/ul RBC (3.5-6.1) 10^6/uL Hgb (12.0-16.0) g/dL Hct (36.0-48.0) % MCV (80.0-105.0) fl MCH (25.0-35.0) pg MCHC (31.0-37.0) g/dl RDW (11.5-14.5) % Plt Count (120.0-450.0) 10^3/uL MPV (7.0-11.0) fl Gran % (50.0-68.0) % Lymph % (Auto) (22.0-35.0) % [place] % (Auto) (1.0-6.0) % Eos % (Auto) (1.5-5.0) % Baso % (Auto) (0.0-3.0) % Gran # (1.4-6.5) Lymph # (Auto) (1.2-3.4) [place] # (Auto) (0.1-0.6) Eos # (Auto) (0.0-0.7) Baso # (Auto) (0.0-2.0) K/mm3 Neutrophils % (Manual) (50.0-70.0) % Band Neutrophils % (0-2) % Lymphocytes % (Manual) (22.0-35.0) % Monocytes % (Manual) (1.0-6.0) % Metamyelocytes % % Platelet Evaluation (NORMAL) Large Platelets PT (9.4-12.5) SECONDS INR APTT (25.1-36.5) Seconds pO2 (30-55) mm/Hg VBG pH (7.32-7.43) VBG pCO2 (40-60) VBG HCO3 (21-28) mmol/l VBG Total CO2 (22-28) mmol.L VBG O2 Sat (Calc) (40-65) % VBG Base Excess (0.0-2.0) mmol/L VBG Potassium (3.6-5.2) mmol/L Glucose (65-105) mg/dl Lactate (0.7-2.1) mmol/L FiO2 % Sodium 141 (132-148) mmol/L Potassium 3.9 (3.6-5.0) mmol/L Chloride 109 H (98-107) mmol/L Carbon Dioxide 25 (21-33) mmol/L Anion Gap 11 (10-20) BUN 12 (7-21) mg/dL Creatinine 1.1 (0.7-1.2) mg/dl Est GFR ( Amer) > 60 Est GFR (Non-Af Amer) 53 POC Glucose (mg/dL) (65-110) mg/dL Random Glucose 325 H* (70-110) mg/dL Hemoglobin A1c 14.9 H D (4.2-6.5) % Calcium 9.0 (8.4-10.5) mg/dL Phosphorus 2.4 L (2.5-4.5) mg/dL Magnesium 2.1 (1.7-2.2) mg/dL Total Bilirubin 0.6 (0.2-1.3) mg/dL AST 23 (14-36) U/L ALT 16 (7-56) U/L Alkaline Phosphatase 200 H D (38-126) U/L Troponin I ng/mL NT-Pro-B Natriuret Pep (0-450) pg/mL Total Protein 6.7 (5.8-8.3) g/dL Albumin 3.1 (3.0-4.8) g/dL Globulin 3.6 gm/dL Albumin/Globulin Ratio 0.9 L (1.1-1.8) Triglycerides 356 H (35-160) mg/dL Cholesterol 108 L (130-200) mg/dL LDL Cholesterol Direct < 30 (0-129) mg/dL HDL Cholesterol 18 L (29-60) mg/dL Lipase 20 L (23-300) U/L TSH 3rd Generation 0.37 L (0.46-4.68) mIU/mL Venous Blood Potassium (3.6-5.2) mmol/L Urine Color (YELLOW) Urine Appearance (CLEAR) Urine pH (4.7-8.0) Ur Specific [place] (1.005-1.035) Urine Protein (<30 mg/dL) mg/dL Urine Glucose (UA) (NEGATIVE) mg/dL Urine Ketones (NEGATIVE) mg/dL Urine Blood (NEGATIVE) Urine Nitrate (NEGATIVE) Urine Bilirubin (NEGATIVE) Urine Urobilinogen (<1 E.U./dL) E.U./dL Ur Leukocyte Esterase (NEGATIVE) Rafy/uL Urine RBC (0-2) /hpf Urine WBC (0-6) /hpf Ur Epithelial Cells (0-5) /hpf Urine Bacteria (NEG) Urine Other 06/08/18 06/08/18 06/08/18 Range/Units 04:03 02:58 02:00 WBC (4.5-11.0) 10^3/ul RBC (3.5-6.1) 10^6/uL Hgb (12.0-16.0) g/dL Hct (36.0-48.0) % MCV (80.0-105.0) fl MCH (25.0-35.0) pg MCHC (31.0-37.0) g/dl RDW (11.5-14.5) % Plt Count (120.0-450.0) 10^3/uL MPV (7.0-11.0) fl Gran % (50.0-68.0) % Lymph % (Auto) (22.0-35.0) % [place] % (Auto) (1.0-6.0) % Eos % (Auto) (1.5-5.0) % Baso % (Auto) (0.0-3.0) % Gran # (1.4-6.5) Lymph # (Auto) (1.2-3.4) Fountain # (Auto) (0.1-0.6) Eos # (Auto) (0.0-0.7) Baso # (Auto) (0.0-2.0) K/mm3 Neutrophils % (Manual) (50.0-70.0) % Band Neutrophils % (0-2) % Lymphocytes % (Manual) (22.0-35.0) % Monocytes % (Manual) (1.0-6.0) % Metamyelocytes % % Platelet Evaluation (NORMAL) Large Platelets PT (9.4-12.5) SECONDS INR APTT (25.1-36.5) Seconds pO2 (30-55) mm/Hg VBG pH (7.32-7.43) VBG pCO2 (40-60) VBG HCO3 (21-28) mmol/l VBG Total CO2 (22-28) mmol.L VBG O2 Sat (Calc) (40-65) % VBG Base Excess (0.0-2.0) mmol/L VBG Potassium (3.6-5.2) mmol/L Glucose (65-105) mg/dl Lactate (0.7-2.1) mmol/L FiO2 % Sodium (132-148) mmol/L Potassium (3.6-5.0) mmol/L Chloride (98-107) mmol/L Carbon Dioxide (21-33) mmol/L Anion Gap (10-20) BUN (7-21) mg/dL Creatinine (0.7-1.2) mg/dl Est GFR ( Amer) Est GFR (Non-Af Amer) POC Glucose (mg/dL) 369 H 323 H 331 H (65-110) mg/dL Random Glucose (70-110) mg/dL Hemoglobin A1c (4.2-6.5) % Calcium (8.4-10.5) mg/dL Phosphorus (2.5-4.5) mg/dL Magnesium (1.7-2.2) mg/dL Total Bilirubin (0.2-1.3) mg/dL AST (14-36) U/L ALT (7-56) U/L Alkaline Phosphatase (38-126) U/L Troponin I ng/mL NT-Pro-B Natriuret Pep (0-450) pg/mL Total Protein (5.8-8.3) g/dL Albumin (3.0-4.8) g/dL Globulin gm/dL Albumin/Globulin Ratio (1.1-1.8) Triglycerides (35-160) mg/dL Cholesterol (130-200) mg/dL LDL Cholesterol Direct (0-129) mg/dL HDL Cholesterol (29-60) mg/dL Lipase (23-300) U/L TSH 3rd Generation (0.46-4.68) mIU/mL Venous Blood Potassium (3.6-5.2) mmol/L Urine Color (YELLOW) Urine Appearance (CLEAR) Urine pH (4.7-8.0) Ur Specific [place] (1.005-1.035) Urine Protein (<30 mg/dL) mg/dL Urine Glucose (UA) (NEGATIVE) mg/dL Urine Ketones (NEGATIVE) mg/dL Urine Blood (NEGATIVE) Urine Nitrate (NEGATIVE) Urine Bilirubin (NEGATIVE) Urine Urobilinogen (<1 E.U./dL) E.U./dL Ur Leukocyte Esterase (NEGATIVE) Rafy/uL Urine RBC (0-2) /hpf Urine WBC (0-6) /hpf Ur Epithelial Cells (0-5) /hpf Urine Bacteria (NEG) Urine Other 06/08/18 06/08/18 06/08/18 Range/Units 02:00 01:14 00:10 WBC (4.5-11.0) 10^3/ul RBC (3.5-6.1) 10^6/uL Hgb (12.0-16.0) g/dL Hct (36.0-48.0) % MCV (80.0-105.0) fl MCH (25.0-35.0) pg MCHC (31.0-37.0) g/dl RDW (11.5-14.5) % Plt Count (120.0-450.0) 10^3/uL MPV (7.0-11.0) fl Gran % (50.0-68.0) % Lymph % (Auto) (22.0-35.0) % [place] % (Auto) (1.0-6.0) % Eos % (Auto) (1.5-5.0) % Baso % (Auto) (0.0-3.0) % Gran # (1.4-6.5) Lymph # (Auto) (1.2-3.4) [place] # (Auto) (0.1-0.6) Eos # (Auto) (0.0-0.7) Baso # (Auto) (0.0-2.0) K/mm3 Neutrophils % (Manual) (50.0-70.0) % Band Neutrophils % (0-2) % Lymphocytes % (Manual) (22.0-35.0) % Monocytes % (Manual) (1.0-6.0) % Metamyelocytes % % Platelet Evaluation (NORMAL) Large Platelets PT (9.4-12.5) SECONDS INR APTT (25.1-36.5) Seconds pO2 (30-55) mm/Hg VBG pH (7.32-7.43) VBG pCO2 (40-60) VBG HCO3 (21-28) mmol/l VBG Total CO2 (22-28) mmol.L VBG O2 Sat (Calc) (40-65) % VBG Base Excess (0.0-2.0) mmol/L VBG Potassium (3.6-5.2) mmol/L Glucose (65-105) mg/dl Lactate (0.7-2.1) mmol/L FiO2 % Sodium 140 (132-148) mmol/L Potassium 4.2 (3.6-5.0) mmol/L Chloride 108 H (98-107) mmol/L Carbon Dioxide 23 (21-33) mmol/L Anion Gap 12 (10-20) BUN 11 (7-21) mg/dL Creatinine 1.1 (0.7-1.2) mg/dl Est GFR ( Amer) > 60 Est GFR (Non-Af Amer) 53 POC Glucose (mg/dL) 326 H 359 H (65-110) mg/dL Random Glucose 361 H* (70-110) mg/dL Hemoglobin A1c (4.2-6.5) % Calcium 8.7 (8.4-10.5) mg/dL Phosphorus (2.5-4.5) mg/dL Magnesium (1.7-2.2) mg/dL Total Bilirubin (0.2-1.3) mg/dL AST (14-36) U/L ALT (7-56) U/L Alkaline Phosphatase (38-126) U/L Troponin I 0.03 D ng/mL NT-Pro-B Natriuret Pep (0-450) pg/mL Total Protein (5.8-8.3) g/dL Albumin (3.0-4.8) g/dL Globulin gm/dL Albumin/Globulin Ratio (1.1-1.8) Triglycerides (35-160) mg/dL Cholesterol (130-200) mg/dL LDL Cholesterol Direct (0-129) mg/dL HDL Cholesterol (29-60) mg/dL Lipase (23-300) U/L TSH 3rd Generation (0.46-4.68) mIU/mL Venous Blood Potassium (3.6-5.2) mmol/L Urine Color (YELLOW) Urine Appearance (CLEAR) Urine pH (4.7-8.0) Ur Specific [place] (1.005-1.035) Urine Protein (<30 mg/dL) mg/dL Urine Glucose (UA) (NEGATIVE) mg/dL Urine Ketones (NEGATIVE) mg/dL Urine Blood (NEGATIVE) Urine Nitrate (NEGATIVE) Urine Bilirubin (NEGATIVE) Urine Urobilinogen (<1 E.U./dL) E.U./dL Ur Leukocyte Esterase (NEGATIVE) Rafy/uL Urine RBC (0-2) /hpf Urine WBC (0-6) /hpf Ur Epithelial Cells (0-5) /hpf Urine Bacteria (NEG) Urine Other 06/07/18 06/07/18 06/07/18 Range/Units 23:30 21:10 20:07 WBC (4.5-11.0) 10^3/ul RBC (3.5-6.1) 10^6/uL Hgb (12.0-16.0) g/dL Hct (36.0-48.0) % MCV (80.0-105.0) fl MCH (25.0-35.0) pg MCHC (31.0-37.0) g/dl RDW (11.5-14.5) % Plt Count (120.0-450.0) 10^3/uL MPV (7.0-11.0) fl Gran % (50.0-68.0) % Lymph % (Auto) (22.0-35.0) % [place] % (Auto) (1.0-6.0) % Eos % (Auto) (1.5-5.0) % Baso % (Auto) (0.0-3.0) % Gran # (1.4-6.5) Lymph # (Auto) (1.2-3.4) [place] # (Auto) (0.1-0.6) Eos # (Auto) (0.0-0.7) Baso # (Auto) (0.0-2.0) K/mm3 Neutrophils % (Manual) (50.0-70.0) % Band Neutrophils % (0-2) % Lymphocytes % (Manual) (22.0-35.0) % Monocytes % (Manual) (1.0-6.0) % Metamyelocytes % % Platelet Evaluation (NORMAL) Large Platelets PT (9.4-12.5) SECONDS INR APTT (25.1-36.5) Seconds pO2 (30-55) mm/Hg VBG pH (7.32-7.43) VBG pCO2 (40-60) VBG HCO3 (21-28) mmol/l VBG Total CO2 (22-28) mmol.L VBG O2 Sat (Calc) (40-65) % VBG Base Excess (0.0-2.0) mmol/L VBG Potassium (3.6-5.2) mmol/L Glucose (65-105) mg/dl Lactate (0.7-2.1) mmol/L FiO2 % Sodium 139 (132-148) mmol/L Potassium 4.3 (3.6-5.0) mmol/L Chloride 106 (98-107) mmol/L Carbon Dioxide 22 (21-33) mmol/L Anion Gap 15 (10-20) BUN 12 (7-21) mg/dL Creatinine 1.1 (0.7-1.2) mg/dl Est GFR ( Amer) > 60 Est GFR (Non-Af Amer) 53 POC Glucose (mg/dL) 330 H 430 H* (65-110) mg/dL Random Glucose 422 H* D (70-110) mg/dL Hemoglobin A1c (4.2-6.5) % Calcium 8.9 (8.4-10.5) mg/dL Phosphorus (2.5-4.5) mg/dL Magnesium (1.7-2.2) mg/dL Total Bilirubin (0.2-1.3) mg/dL AST (14-36) U/L ALT (7-56) U/L Alkaline Phosphatase (38-126) U/L Troponin I 0.01 ng/mL NT-Pro-B Natriuret Pep (0-450) pg/mL Total Protein (5.8-8.3) g/dL Albumin (3.0-4.8) g/dL Globulin gm/dL Albumin/Globulin Ratio (1.1-1.8) Triglycerides (35-160) mg/dL Cholesterol (130-200) mg/dL LDL Cholesterol Direct (0-129) mg/dL HDL Cholesterol (29-60) mg/dL Lipase (23-300) U/L TSH 3rd Generation (0.46-4.68) mIU/mL Venous Blood Potassium (3.6-5.2) mmol/L Urine Color (YELLOW) Urine Appearance (CLEAR) Urine pH (4.7-8.0) Ur Specific [place] (1.005-1.035) Urine Protein (<30 mg/dL) mg/dL Urine Glucose (UA) (NEGATIVE) mg/dL Urine Ketones (NEGATIVE) mg/dL Urine Blood (NEGATIVE) Urine Nitrate (NEGATIVE) Urine Bilirubin (NEGATIVE) Urine Urobilinogen (<1 E.U./dL) E.U./dL Ur Leukocyte Esterase (NEGATIVE) Rafy/uL Urine RBC (0-2) /hpf Urine WBC (0-6) /hpf Ur Epithelial Cells (0-5) /hpf Urine Bacteria (NEG) Urine Other 06/07/18 06/07/18 06/07/18 Range/Units 18:56 18:55 17:51 WBC (4.5-11.0) 10^3/ul RBC (3.5-6.1) 10^6/uL Hgb (12.0-16.0) g/dL Hct (36.0-48.0) % MCV (80.0-105.0) fl MCH (25.0-35.0) pg MCHC (31.0-37.0) g/dl RDW (11.5-14.5) % Plt Count (120.0-450.0) 10^3/uL MPV (7.0-11.0) fl Gran % (50.0-68.0) % Lymph % (Auto) (22.0-35.0) % [place] % (Auto) (1.0-6.0) % Eos % (Auto) (1.5-5.0) % Baso % (Auto) (0.0-3.0) % Gran # (1.4-6.5) Lymph # (Auto) (1.2-3.4) [place] # (Auto) (0.1-0.6) Eos # (Auto) (0.0-0.7) Baso # (Auto) (0.0-2.0) K/mm3 Neutrophils % (Manual) (50.0-70.0) % Band Neutrophils % (0-2) % Lymphocytes % (Manual) (22.0-35.0) % Monocytes % (Manual) (1.0-6.0) % Metamyelocytes % % Platelet Evaluation (NORMAL) Large Platelets PT (9.4-12.5) SECONDS INR APTT (25.1-36.5) Seconds pO2 88 H (30-55) mm/Hg VBG pH 7.32 (7.32-7.43) VBG pCO2 39.0 L (40-60) VBG HCO3 20.1 L (21-28) mmol/l VBG Total CO2 21.3 L (22-28) mmol.L VBG O2 Sat (Calc) 98.5 H (40-65) % VBG Base Excess -5.6 L (0.0-2.0) mmol/L VBG Potassium 5.3 H (3.6-5.2) mmol/L Glucose 671 H* (65-105) mg/dl Lactate 3.5 H (0.7-2.1) mmol/L FiO2 21.0 % Sodium 132.0 (132-148) mmol/L Potassium (3.6-5.0) mmol/L Chloride 96.0 L (98-107) mmol/L Carbon Dioxide (21-33) mmol/L Anion Gap (10-20) BUN (7-21) mg/dL Creatinine (0.7-1.2) mg/dl Est GFR ( Amer) Est GFR (Non-Af Amer) POC Glucose (mg/dL) > 500 H* > 500 H* (65-110) mg/dL Random Glucose (70-110) mg/dL Hemoglobin A1c (4.2-6.5) % Calcium (8.4-10.5) mg/dL Phosphorus (2.5-4.5) mg/dL Magnesium (1.7-2.2) mg/dL Total Bilirubin (0.2-1.3) mg/dL AST (14-36) U/L ALT (7-56) U/L Alkaline Phosphatase (38-126) U/L Troponin I ng/mL NT-Pro-B Natriuret Pep (0-450) pg/mL Total Protein (5.8-8.3) g/dL Albumin (3.0-4.8) g/dL Globulin gm/dL Albumin/Globulin Ratio (1.1-1.8) Triglycerides (35-160) mg/dL Cholesterol (130-200) mg/dL LDL Cholesterol Direct (0-129) mg/dL HDL Cholesterol (29-60) mg/dL Lipase (23-300) U/L TSH 3rd Generation (0.46-4.68) mIU/mL Venous Blood Potassium 5.3 H (3.6-5.2) mmol/L Urine Color (YELLOW) Urine Appearance (CLEAR) Urine pH (4.7-8.0) Ur Specific [place] (1.005-1.035) Urine Protein (<30 mg/dL) mg/dL Urine Glucose (UA) (NEGATIVE) mg/dL Urine Ketones (NEGATIVE) mg/dL Urine Blood (NEGATIVE) Urine Nitrate (NEGATIVE) Urine Bilirubin (NEGATIVE) Urine Urobilinogen (<1 E.U./dL) E.U./dL Ur Leukocyte Esterase (NEGATIVE) Rafy/uL Urine RBC (0-2) /hpf Urine WBC (0-6) /hpf Ur Epithelial Cells (0-5) /hpf Urine Bacteria (NEG) Urine Other 06/07/18 06/07/18 06/07/18 Range/Units 16:26 16:10 15:50 WBC (4.5-11.0) 10^3/ul RBC (3.5-6.1) 10^6/uL Hgb (12.0-16.0) g/dL Hct (36.0-48.0) % MCV (80.0-105.0) fl MCH (25.0-35.0) pg MCHC (31.0-37.0) g/dl RDW (11.5-14.5) % Plt Count (120.0-450.0) 10^3/uL MPV (7.0-11.0) fl Gran % (50.0-68.0) % Lymph % (Auto) (22.0-35.0) % [place] % (Auto) (1.0-6.0) % Eos % (Auto) (1.5-5.0) % Baso % (Auto) (0.0-3.0) % Gran # (1.4-6.5) Lymph # (Auto) (1.2-3.4) [place] # (Auto) (0.1-0.6) Eos # (Auto) (0.0-0.7) Baso # (Auto) (0.0-2.0) K/mm3 Neutrophils % (Manual) (50.0-70.0) % Band Neutrophils % (0-2) % Lymphocytes % (Manual) (22.0-35.0) % Monocytes % (Manual) (1.0-6.0) % Metamyelocytes % % Platelet Evaluation (NORMAL) Large Platelets PT (9.4-12.5) SECONDS INR APTT (25.1-36.5) Seconds pO2 37 (30-55) mm/Hg VBG pH 7.21 L (7.32-7.43) VBG pCO2 45.0 (40-60) VBG HCO3 18.0 L (21-28) mmol/l VBG Total CO2 19.4 L (22-28) mmol.L VBG O2 Sat (Calc) 65.6 H (40-65) % VBG Base Excess -9.7 L (0.0-2.0) mmol/L VBG Potassium 11.3 H* (3.6-5.2) mmol/L Glucose > 750 H* D (65-105) mg/dl Lactate 6.9 H* (0.7-2.1) mmol/L FiO2 21.0 % Sodium 124.0 L (132-148) mmol/L Potassium (3.6-5.0) mmol/L Chloride 87.0 L (98-107) mmol/L Carbon Dioxide (21-33) mmol/L Anion Gap (10-20) BUN (7-21) mg/dL Creatinine (0.7-1.2) mg/dl Est GFR ( Amer) Est GFR (Non-Af Amer) POC Glucose (mg/dL) > 500 H* (65-110) mg/dL Random Glucose (70-110) mg/dL Hemoglobin A1c (4.2-6.5) % Calcium (8.4-10.5) mg/dL Phosphorus (2.5-4.5) mg/dL Magnesium (1.7-2.2) mg/dL Total Bilirubin (0.2-1.3) mg/dL AST (14-36) U/L ALT (7-56) U/L Alkaline Phosphatase (38-126) U/L Troponin I ng/mL NT-Pro-B Natriuret Pep (0-450) pg/mL Total Protein (5.8-8.3) g/dL Albumin (3.0-4.8) g/dL Globulin gm/dL Albumin/Globulin Ratio (1.1-1.8) Triglycerides (35-160) mg/dL Cholesterol (130-200) mg/dL LDL Cholesterol Direct (0-129) mg/dL HDL Cholesterol (29-60) mg/dL Lipase (23-300) U/L TSH 3rd Generation (0.46-4.68) mIU/mL Venous Blood Potassium 11.3 H* (3.6-5.2) mmol/L Urine Color Straw (YELLOW) Urine Appearance Sl cloudy (CLEAR) Urine pH 6.0 (4.7-8.0) Ur Specific [place] 1.010 (1.005-1.035) Urine Protein 30 H (<30 mg/dL) mg/dL Urine Glucose (UA) >=1000 (NEGATIVE) mg/dL Urine Ketones 40 H (NEGATIVE) mg/dL Urine Blood Large H (NEGATIVE) Urine Nitrate Negative (NEGATIVE) Urine Bilirubin Negative (NEGATIVE) Urine Urobilinogen 0.2 (<1 E.U./dL) E.U./dL Ur Leukocyte Esterase Negative (NEGATIVE) Rafy/uL Urine RBC 2 - 5 (0-2) /hpf Urine WBC 5 - 10 (0-6) /hpf Ur Epithelial Cells 0 - 2 (0-5) /hpf Urine Bacteria Trace (NEG) Urine Other Trichomonas 06/07/18 06/07/18 06/07/18 Range/Units 15:40 15:40 15:40 WBC 16.1 H D (4.5-11.0) 10^3/ul RBC 5.37 (3.5-6.1) 10^6/uL Hgb 13.8 (12.0-16.0) g/dL Hct 42.1 (36.0-48.0) % MCV 78.4 L (80.0-105.0) fl MCH 25.7 (25.0-35.0) pg MCHC 32.8 (31.0-37.0) g/dl RDW 14.5 (11.5-14.5) % Plt Count 308 (120.0-450.0) 10^3/uL MPV 10.5 (7.0-11.0) fl Gran % 90.2 H (50.0-68.0) % Lymph % (Auto) 8.2 L (22.0-35.0) % [place] % (Auto) 1.5 (1.0-6.0) % Eos % (Auto) 0.0 L (1.5-5.0) % Baso % (Auto) 0.1 (0.0-3.0) % Gran # 14.51 H (1.4-6.5) Lymph # (Auto) 1.3 (1.2-3.4) [place] # (Auto) 0.2 (0.1-0.6) Eos # (Auto) 0.0 (0.0-0.7) Baso # (Auto) 0.01 (0.0-2.0) K/mm3 Neutrophils % (Manual) 76 H (50.0-70.0) % Band Neutrophils % 1 (0-2) % Lymphocytes % (Manual) 19 L (22.0-35.0) % Monocytes % (Manual) 3 (1.0-6.0) % Metamyelocytes % 1 % Platelet Evaluation Normal (NORMAL) Large Platelets Present PT 14.6 H (9.4-12.5) SECONDS INR 1.27 APTT 27.2 (25.1-36.5) Seconds pO2 (30-55) mm/Hg VBG pH (7.32-7.43) VBG pCO2 (40-60) VBG HCO3 (21-28) mmol/l VBG Total CO2 (22-28) mmol.L VBG O2 Sat (Calc) (40-65) % VBG Base Excess (0.0-2.0) mmol/L VBG Potassium (3.6-5.2) mmol/L Glucose (65-105) mg/dl Lactate (0.7-2.1) mmol/L FiO2 % Sodium 129 L (132-148) mmol/L Potassium 6.5 H* D (3.6-5.0) mmol/L Chloride 91 L (98-107) mmol/L Carbon Dioxide 17 L (21-33) mmol/L Anion Gap 28 H (10-20) BUN 13 (7-21) mg/dL Creatinine 1.2 (0.7-1.2) mg/dl Est GFR ( Amer) 58 Est GFR (Non-Af Amer) 48 POC Glucose (mg/dL) (65-110) mg/dL Random Glucose 769 H* D (70-110) mg/dL Hemoglobin A1c (4.2-6.5) % Calcium 10.6 H (8.4-10.5) mg/dL Phosphorus 4.1 (2.5-4.5) mg/dL Magnesium 2.2 (1.7-2.2) mg/dL Total Bilirubin 1.3 (0.2-1.3) mg/dL AST 25 (14-36) U/L ALT 21 (7-56) U/L Alkaline Phosphatase 322 H D (38-126) U/L Troponin I < 0.01 D ng/mL NT-Pro-B Natriuret Pep 426 (0-450) pg/mL Total Protein 8.4 H (5.8-8.3) g/dL Albumin 4.2 (3.0-4.8) g/dL Globulin 4.2 gm/dL Albumin/Globulin Ratio 1.0 L (1.1-1.8) Triglycerides (35-160) mg/dL Cholesterol (130-200) mg/dL LDL Cholesterol Direct (0-129) mg/dL HDL Cholesterol (29-60) mg/dL Lipase (23-300) U/L TSH 3rd Generation (0.46-4.68) mIU/mL Venous Blood Potassium (3.6-5.2) mmol/L Urine Color (YELLOW) Urine Appearance (CLEAR) Urine pH (4.7-8.0) Ur Specific [place] (1.005-1.035) Urine Protein (<30 mg/dL) mg/dL Urine Glucose (UA) (NEGATIVE) mg/dL Urine Ketones (NEGATIVE) mg/dL Urine Blood (NEGATIVE) Urine Nitrate (NEGATIVE) Urine Bilirubin (NEGATIVE) Urine Urobilinogen (<1 E.U./dL) E.U./dL Ur Leukocyte Esterase (NEGATIVE) Rafy/uL Urine RBC (0-2) /hpf Urine WBC (0-6) /hpf Ur Epithelial Cells (0-5) /hpf Urine Bacteria (NEG) Urine Other Laboratory Results - last 24 hr 06/07/18 06/07/18 06/07/18 15:40 15:40 15:40 WBC 16.1 H D RBC 5.37 Hgb 13.8 Hct 42.1 MCV 78.4 L MCH 25.7 MCHC 32.8 RDW 14.5 Plt Count 308 MPV 10.5 Gran % 90.2 H Lymph % (Auto) 8.2 L [place] % (Auto) 1.5 Eos % (Auto) 0.0 L Baso % (Auto) 0.1 Gran # 14.51 H Lymph # (Auto) 1.3 [place] # (Auto) 0.2 Eos # (Auto) 0.0 Baso # (Auto) 0.01 Neutrophils % (Manual) 76 H Band Neutrophils % 1 Lymphocytes % (Manual) 19 L Monocytes % (Manual) 3 Metamyelocytes % 1 Platelet Evaluation Normal Large Platelets Present PT 14.6 H INR 1.27 APTT 27.2 pO2 VBG pH VBG pCO2 VBG HCO3 VBG Total CO2 VBG O2 Sat (Calc) VBG Base Excess VBG Potassium Glucose Lactate FiO2 Sodium 129 L Potassium 6.5 H* D Chloride 91 L Carbon Dioxide 17 L Anion Gap 28 H BUN 13 Creatinine 1.2 Est GFR ( Amer) 58 Est GFR (Non-Af Amer) 48 POC Glucose (mg/dL) Random Glucose 769 H* D Hemoglobin A1c Calcium 10.6 H Phosphorus 4.1 Magnesium 2.2 Total Bilirubin 1.3 AST 25 ALT 21 Alkaline Phosphatase 322 H D Troponin I < 0.01 D NT-Pro-B Natriuret Pep 426 Total Protein 8.4 H Albumin 4.2 Globulin 4.2 Albumin/Globulin Ratio 1.0 L Triglycerides Cholesterol LDL Cholesterol Direct HDL Cholesterol Lipase TSH 3rd Generation Venous Blood Potassium Urine Color Urine Appearance Urine pH Ur Specific [place] Urine Protein Urine Glucose (UA) Urine Ketones Urine Blood Urine Nitrate Urine Bilirubin Urine Urobilinogen Ur Leukocyte Esterase Urine RBC Urine WBC Ur Epithelial Cells Urine Bacteria Urine Other 06/07/18 06/07/18 06/07/18 15:50 16:10 16:26 WBC RBC Hgb Hct MCV MCH MCHC RDW Plt Count MPV Gran % Lymph % (Auto) [place] % (Auto) Eos % (Auto) Baso % (Auto) Gran # Lymph # (Auto) [place] # (Auto) Eos # (Auto) Baso # (Auto) Neutrophils % (Manual) Band Neutrophils % Lymphocytes % (Manual) Monocytes % (Manual) Metamyelocytes % Platelet Evaluation Large Platelets PT INR APTT pO2 37 VBG pH 7.21 L VBG pCO2 45.0 VBG HCO3 18.0 L VBG Total CO2 19.4 L VBG O2 Sat (Calc) 65.6 H VBG Base Excess -9.7 L VBG Potassium 11.3 H* Glucose > 750 H* D Lactate 6.9 H* FiO2 21.0 Sodium 124.0 L Potassium Chloride 87.0 L Carbon Dioxide Anion Gap BUN Creatinine Est GFR ( Amer) Est GFR (Non-Af Amer) POC Glucose (mg/dL) > 500 H* Random Glucose Hemoglobin A1c Calcium Phosphorus Magnesium Total Bilirubin AST ALT Alkaline Phosphatase Troponin I NT-Pro-B Natriuret Pep Total Protein Albumin Globulin Albumin/Globulin Ratio Triglycerides Cholesterol LDL Cholesterol Direct HDL Cholesterol Lipase TSH 3rd Generation Venous Blood Potassium 11.3 H* Urine Color Straw Urine Appearance Sl cloudy Urine pH 6.0 Ur Specific [place] 1.010 Urine Protein 30 H Urine Glucose (UA) >=1000 Urine Ketones 40 H Urine Blood Large H Urine Nitrate Negative Urine Bilirubin Negative Urine Urobilinogen 0.2 Ur Leukocyte Esterase Negative Urine RBC 2 - 5 Urine WBC 5 - 10 Ur Epithelial Cells 0 - 2 Urine Bacteria Trace Urine Other Trichomonas 06/07/18 06/07/18 06/07/18 17:51 18:55 18:56 WBC RBC Hgb Hct MCV MCH MCHC RDW Plt Count MPV Gran % Lymph % (Auto) [place] % (Auto) Eos % (Auto) Baso % (Auto) Gran # Lymph # (Auto) [place] # (Auto) Eos # (Auto) Baso # (Auto) Neutrophils % (Manual) Band Neutrophils % Lymphocytes % (Manual) Monocytes % (Manual) Metamyelocytes % Platelet Evaluation Large Platelets PT INR APTT pO2 88 H VBG pH 7.32 VBG pCO2 39.0 L VBG HCO3 20.1 L VBG Total CO2 21.3 L VBG O2 Sat (Calc) 98.5 H VBG Base Excess -5.6 L VBG Potassium 5.3 H Glucose 671 H* Lactate 3.5 H FiO2 21.0 Sodium 132.0 Potassium Chloride 96.0 L Carbon Dioxide Anion Gap BUN Creatinine Est GFR ( Amer) Est GFR (Non-Af Amer) POC Glucose (mg/dL) > 500 H* > 500 H* Random Glucose Hemoglobin A1c Calcium Phosphorus Magnesium Total Bilirubin AST ALT Alkaline Phosphatase Troponin I NT-Pro-B Natriuret Pep Total Protein Albumin Globulin Albumin/Globulin Ratio Triglycerides Cholesterol LDL Cholesterol Direct HDL Cholesterol Lipase TSH 3rd Generation Venous Blood Potassium 5.3 H Urine Color Urine Appearance Urine pH Ur Specific [place] Urine Protein Urine Glucose (UA) Urine Ketones Urine Blood Urine Nitrate Urine Bilirubin Urine Urobilinogen Ur Leukocyte Esterase Urine RBC Urine WBC Ur Epithelial Cells Urine Bacteria Urine Other 06/07/18 06/07/18 06/07/18 20:07 21:10 23:30 WBC RBC Hgb Hct MCV MCH MCHC RDW Plt Count MPV Gran % Lymph % (Auto) [place] % (Auto) Eos % (Auto) Baso % (Auto) Gran # Lymph # (Auto) [place] # (Auto) Eos # (Auto) Baso # (Auto) Neutrophils % (Manual) Band Neutrophils % Lymphocytes % (Manual) Monocytes % (Manual) Metamyelocytes % Platelet Evaluation Large Platelets PT INR APTT pO2 VBG pH VBG pCO2 VBG HCO3 VBG Total CO2 VBG O2 Sat (Calc) VBG Base Excess VBG Potassium Glucose Lactate FiO2 Sodium 139 Potassium 4.3 Chloride 106 Carbon Dioxide 22 Anion Gap 15 BUN 12 Creatinine 1.1 Est GFR ( Amer) > 60 Est GFR (Non-Af Amer) 53 POC Glucose (mg/dL) 430 H* 330 H Random Glucose 422 H* D Hemoglobin A1c Calcium 8.9 Phosphorus Magnesium Total Bilirubin AST ALT Alkaline Phosphatase Troponin I 0.01 NT-Pro-B Natriuret Pep Total Protein Albumin Globulin Albumin/Globulin Ratio Triglycerides Cholesterol LDL Cholesterol Direct HDL Cholesterol Lipase TSH 3rd Generation Venous Blood Potassium Urine Color Urine Appearance Urine pH Ur Specific [place] Urine Protein Urine Glucose (UA) Urine Ketones Urine Blood Urine Nitrate Urine Bilirubin Urine Urobilinogen Ur Leukocyte Esterase Urine RBC Urine WBC Ur Epithelial Cells Urine Bacteria Urine Other 06/08/18 06/08/18 06/08/18 00:10 01:14 02:00 WBC RBC Hgb Hct MCV MCH MCHC RDW Plt Count MPV Gran % Lymph % (Auto) [place] % (Auto) Eos % (Auto) Baso % (Auto) Gran # Lymph # (Auto) [place] # (Auto) Eos # (Auto) Baso # (Auto) Neutrophils % (Manual) Band Neutrophils % Lymphocytes % (Manual) Monocytes % (Manual) Metamyelocytes % Platelet Evaluation Large Platelets PT INR APTT pO2 VBG pH VBG pCO2 VBG HCO3 VBG Total CO2 VBG O2 Sat (Calc) VBG Base Excess VBG Potassium Glucose Lactate FiO2 Sodium 140 Potassium 4.2 Chloride 108 H Carbon Dioxide 23 Anion Gap 12 BUN 11 Creatinine 1.1 Est GFR ( Amer) > 60 Est GFR (Non-Af Amer) 53 POC Glucose (mg/dL) 359 H 326 H Random Glucose 361 H* Hemoglobin A1c Calcium 8.7 Phosphorus Magnesium Total Bilirubin AST ALT Alkaline Phosphatase Troponin I 0.03 D NT-Pro-B Natriuret Pep Total Protein Albumin Globulin Albumin/Globulin Ratio Triglycerides Cholesterol LDL Cholesterol Direct HDL Cholesterol Lipase TSH 3rd Generation Venous Blood Potassium Urine Color Urine Appearance Urine pH Ur Specific [place] Urine Protein Urine Glucose (UA) Urine Ketones Urine Blood Urine Nitrate Urine Bilirubin Urine Urobilinogen Ur Leukocyte Esterase Urine RBC Urine WBC Ur Epithelial Cells Urine Bacteria Urine Other 06/08/18 06/08/18 06/08/18 02:00 02:58 04:03 WBC RBC Hgb Hct MCV MCH MCHC RDW Plt Count MPV Gran % Lymph % (Auto) [place] % (Auto) Eos % (Auto) Baso % (Auto) Gran # Lymph # (Auto) [place] # (Auto) Eos # (Auto) Baso # (Auto) Neutrophils % (Manual) Band Neutrophils % Lymphocytes % (Manual) Monocytes % (Manual) Metamyelocytes % Platelet Evaluation Large Platelets PT INR APTT pO2 VBG pH VBG pCO2 VBG HCO3 VBG Total CO2 VBG O2 Sat (Calc) VBG Base Excess VBG Potassium Glucose Lactate FiO2 Sodium Potassium Chloride Carbon Dioxide Anion Gap BUN Creatinine Est GFR ( Amer) Est GFR (Non-Af Amer) POC Glucose (mg/dL) 331 H 323 H 369 H Random Glucose Hemoglobin A1c Calcium Phosphorus Magnesium Total Bilirubin AST ALT Alkaline Phosphatase Troponin I NT-Pro-B Natriuret Pep Total Protein Albumin Globulin Albumin/Globulin Ratio Triglycerides Cholesterol LDL Cholesterol Direct HDL Cholesterol Lipase TSH 3rd Generation Venous Blood Potassium Urine Color Urine Appearance Urine pH Ur Specific [place] Urine Protein Urine Glucose (UA) Urine Ketones Urine Blood Urine Nitrate Urine Bilirubin Urine Urobilinogen Ur Leukocyte Esterase Urine RBC Urine WBC Ur Epithelial Cells Urine Bacteria Urine Other 06/08/18 06/08/18 06/08/18 05:30 05:30 05:30 WBC RBC Hgb Hct MCV MCH MCHC RDW Plt Count MPV Gran % Lymph % (Auto) [place] % (Auto) Eos % (Auto) Baso % (Auto) Gran # Lymph # (Auto) [place] # (Auto) Eos # (Auto) Baso # (Auto) Neutrophils % (Manual) Band Neutrophils % Lymphocytes % (Manual) Monocytes % (Manual) Metamyelocytes % Platelet Evaluation Large Platelets PT INR APTT pO2 VBG pH VBG pCO2 VBG HCO3 VBG Total CO2 VBG O2 Sat (Calc) VBG Base Excess VBG Potassium Glucose Lactate FiO2 Sodium 141 Potassium 3.9 Chloride 109 H Carbon Dioxide 25 Anion Gap 11 BUN 12 Creatinine 1.1 Est GFR ( Amer) > 60 Est GFR (Non-Af Amer) 53 POC Glucose (mg/dL) Random Glucose 325 H* Hemoglobin A1c 14.9 H D Calcium 9.0 Phosphorus 2.4 L Magnesium 2.1 Total Bilirubin 0.6 AST 23 ALT 16 Alkaline Phosphatase 200 H D Troponin I NT-Pro-B Natriuret Pep Total Protein 6.7 Albumin 3.1 Globulin 3.6 Albumin/Globulin Ratio 0.9 L Triglycerides 356 H Cholesterol 108 L LDL Cholesterol Direct < 30 HDL Cholesterol 18 L Lipase 20 L TSH 3rd Generation 0.37 L Venous Blood Potassium Urine Color Urine Appearance Urine pH Ur Specific [place] Urine Protein Urine Glucose (UA) Urine Ketones Urine Blood Urine Nitrate Urine Bilirubin Urine Urobilinogen Ur Leukocyte Esterase Urine RBC Urine WBC Ur Epithelial Cells Urine Bacteria Urine Other 06/08/18 06/08/18 06/08/18 05:33 07:30 08:04 WBC 19.3 H RBC 4.19 Hgb 11.0 L D Hct 32.4 L MCV 77.3 L MCH 26.3 MCHC 34.0 RDW 14.4 Plt Count 267 MPV 10.3 Gran % 86.2 H Lymph % (Auto) 8.1 L [place] % (Auto) 5.5 Eos % (Auto) 0.1 L Baso % (Auto) 0.1 Gran # 16.60 H Lymph # (Auto) 1.6 [place] # (Auto) 1.1 H Eos # (Auto) 0.0 Baso # (Auto) 0.02 Neutrophils % (Manual) Band Neutrophils % Lymphocytes % (Manual) Monocytes % (Manual) Metamyelocytes % Platelet Evaluation Large Platelets PT INR APTT pO2 VBG pH VBG pCO2 VBG HCO3 VBG Total CO2 VBG O2 Sat (Calc) VBG Base Excess VBG Potassium Glucose Lactate FiO2 Sodium Potassium Chloride Carbon Dioxide Anion Gap BUN Creatinine Est GFR ( Amer) Est GFR (Non-Af Amer) POC Glucose (mg/dL) 306 H 308 H Random Glucose Hemoglobin A1c Calcium Phosphorus Magnesium Total Bilirubin AST ALT Alkaline Phosphatase Troponin I NT-Pro-B Natriuret Pep Total Protein Albumin Globulin Albumin/Globulin Ratio Triglycerides Cholesterol LDL Cholesterol Direct HDL Cholesterol Lipase TSH 3rd Generation Venous Blood Potassium Urine Color Urine Appearance Urine pH Ur Specific [place] Urine Protein Urine Glucose (UA) Urine Ketones Urine Blood Urine Nitrate Urine Bilirubin Urine Urobilinogen Ur Leukocyte Esterase Urine RBC Urine WBC Ur Epithelial Cells Urine Bacteria Urine Other 06/08/18 06/08/18 06/08/18 09:54 10:10 11:05 WBC RBC Hgb Hct MCV MCH MCHC RDW Plt Count MPV Gran % Lymph % (Auto) [place] % (Auto) Eos % (Auto) Baso % (Auto) Gran # Lymph # (Auto) [place] # (Auto) Eos # (Auto) Baso # (Auto) Neutrophils % (Manual) Band Neutrophils % Lymphocytes % (Manual) Monocytes % (Manual) Metamyelocytes % Platelet Evaluation Large Platelets PT INR APTT pO2 VBG pH VBG pCO2 VBG HCO3 VBG Total CO2 VBG O2 Sat (Calc) VBG Base Excess VBG Potassium Glucose Lactate FiO2 Sodium 139 Potassium 4.1 Chloride 107 Carbon Dioxide 21 Anion Gap 15 BUN 13 Creatinine 1.0 Est GFR ( Amer) > 60 Est GFR (Non-Af Amer) 59 POC Glucose (mg/dL) 335 H 425 H* Random Glucose 439 H* D Hemoglobin A1c Calcium 8.8 Phosphorus Magnesium Total Bilirubin AST ALT Alkaline Phosphatase Troponin I NT-Pro-B Natriuret Pep Total Protein Albumin Globulin Albumin/Globulin Ratio Triglycerides Cholesterol LDL Cholesterol Direct HDL Cholesterol Lipase TSH 3rd Generation Venous Blood Potassium Urine Color Urine Appearance Urine pH Ur Specific [place] Urine Protein Urine Glucose (UA) Urine Ketones Urine Blood Urine Nitrate Urine Bilirubin Urine Urobilinogen Ur Leukocyte Esterase Urine RBC Urine WBC Ur Epithelial Cells Urine Bacteria Urine Other EKG/Cardiology Studies: Cardiology / EKG Studies 06/07/18 15:24 ELECTROCARDIOGRAM Stat Comment: Reason For Exam: Sepsis Patient 06/07/18 21:00 ELECTROCARDIOGRAM Routine Comment: Reason For Exam: DKA 06/08/18 03:00 ELECTROCARDIOGRAM ONCE Comment: Reason For Exam: DKA Critical Care Progress Note - Nutrition Nutrition: Nutrition Category Date Time Status Liquid Diet [DIET] Diets 06/08/18 Breakfast Ordered Assessment/Plan - Assessment and Plan (Free Text) Plan: Patient seen and examined on rounds with resident, agree with note with anyi brice additions/exceptions Patient is 48yo female with PMhx of IDDM, HTN, CHF EF 20%, presented with severe sepsis, pyelonephritis, DKA Pt was on insulin drip, AG closed, started on Levemir, Insulin drip discontinued, given clear liquid diet Endocrinology following Labs, imaging, chart reviewed Patient with GNR in blood, sensitivies/specificities pending CXR clear DKA, resolved CHF, chronic systolic HTN IDDM Bacteremia Pyelonephritis Severe Sepsis Recommend: - supp o2 as needed, duonebs PRN - follow up cultures, check procal - obtain ID eval - change Rocephin to Merrem - Hold BP meds for now - resume Coreg 3.125mg BID - cardiology follow up - endocrine follow up - check HgbA1C, TSH - GI ppx - DVT ppx - Monitor in MICU Critical care time 35 minutes
[2018-06-08 08:03] LABS: BASO # 0.02 K/mm3 (0.0-2.0); BASO % 0.1 % (0.0-3.0); EOS % 0.1 % (1.5-5.0); GRAN # 16.6 (1.4-6.5); GRAN % 86.2 % (50.0-68.0); LYMPH # 1.6 (1.2-3.4); LYMPH % 8.1 % (22.0-35.0); MEAN CELL VOLUME 77.3 fl (80.0-105.0); MEAN CORPUSCULAR HEMOGLOBIN 26.3 pg (25.0-35.0); MEAN PLATELET VOLUME 10.3 fl (7.0-11.0); MONO # 1.1 (0.1-0.6); MONO % 5.5 % (1.0-6.0); RBC 4.19 10^6/uL (3.5-6.1); RED CELL DISTRIBUTION WIDTH 14.4 % (11.5-14.5); WHITE BLOOD COUNT 19.3 10^3/ul (4.5-11.0)
[2018-06-08] MEDS: Meropenem 500 MG in Sodium Chloride 0.9% 50 ML IVPB SCH ×2 (09:50→17:35)
--- NOTE | 2018-06-08 09:54 | CARD ---
APPROVED REPORT Date of service: 06/07/2018 EKG Measurement Heart [id number] <Conclusion> Sinus tachycardia Left axis deviation Inferior infarct, age undetermined ST & T wave abnormality, consider lateral ischemia
[2018-06-08] MEDS ORDERED: cefTRIAXone 1 gm 1 GM/100 ML BAG IVPB SCH (10:00)
--- NOTE | 2018-06-08 10:13 | CARD ---
APPROVED REPORT Date of service: 06/07/2018 EKG Measurement Heart [id number] [id number] <Conclusion> Sinus tachycardia Inferior infarct, age undetermined STTW changes c/w ischemia
--- NOTE | 2018-06-08 10:23 | CARD ---
APPROVED REPORT Date of service: 06/08/2018 EKG Measurement Heart [id number] 126P45 [id number] <Conclusion> Sinus tachycardia Inferior infarct, age undetermined NICOL lees
[2018-06-08] MEDS ORDERED: Albuterol-Ipratrop 3 mg / 0.5 (3 ml) UD IH PRN (10:34)
[2018-06-08 10:35] LABS: BLOOD UREA NITROGEN 13 mg/dL (7-21); CALCIUM 8.8 mg/dL (8.4-10.5); GFR NON-AFRICAN AMERICAN 59
[2018-06-08] MEDS ORDERED: Insulin Reg-HIGH-Coverage SC SCH ×2 (11:30→14:00)
--- NOTE | 2018-06-08 11:33 | US ---
Date of service: 06/07/2018 HISTORY: RUQ pain COMPARISON: Correlation is made to CT scan of the abdomen pelvis performed earlier the same day. TECHNIQUE: Sonographic evaluation of the right upper quadrant of the abdomen. FINDINGS: LIVER: Measures 14.7 cm in length. Normal echogenicity of the liver parenchyma. No mass. No intrahepatic bile duct dilatation. GALLBLADDER: Unremarkable. No gallstones. COMMON BILE DUCT: Measures 3 mm. No stones. No dilatation. PANCREAS: Not well-visualized due to portable technique and overlying bowel gas. RIGHT KIDNEY: Measures 12.7 x 6.0 x 5.2 cm in length. 4 x 3 x 5 mm nonobstructive calculus in the midpole. Mild hydronephrosis. Normal echogenicity. No mass. AORTA: No aneurysmal dilatation. IVC: Unremarkable. OTHER FINDINGS: None . IMPRESSION: Nonobstructive right interpolar calculus. Mild right renal hydronephrosis. Normal gallbladder.
[2018-06-08] MEDS: Digoxin 250 mcg (0.25 mg) Tab PO SCH (13:26)
[2018-06-08] MEDS ORDERED: Insulin Regular 100 UNITS in Sodium Chloride 0.9% 99 ML IV PRN ×2 (14:21→16:37)
--- NOTE | 2018-06-08 15:14 | CP.PCM.CON ---
History of Present Illness - History of Present Illness History of Present Illness: Infectious Disease Consultation: June 08, 2018 48 yo female with PMHx of DM2, CHF (last EF 20%), CAD, SLE, and pituitary tumor presented to ED last night with worsening abdominal pain, nausea, and vomiting. Patient states that she had not been feeling well the last several days and had not taken her insulin or any of her other medications. She was subsequently found to have DKA and pyelonephritis L > R in ED and was admitted to ICU for management. Currently, she is still having nausea and abdominal pain but it has improved. She also admits to still feeling chills and a headache but denies visi on changes, CP, SOB, or cough. Started on IV Vancomycin and Zosyn for antibiotic coverage. The patient is showing gram negative rods on both blood cultures. PMHx: DM2, CHF with EF of 20%, CAD, SLE, Asthma, Pituitary adenoma, Arrhythmia. PSHx: none given Allergies: steroids? Social Hx: No tobacco, EtOH, or illicit drug use. On disability for pituitary tumor Active Medications Acetaminophen (Tylenol 325mg Tab) 650 mg PO Q6H PRN PRN Reason: Pain, moderate (4-7) Last Admin: 06/08/18 13:24 Dose: 650 mg Albuterol/Ipratropium (Duoneb 3 Mg/0.5 Mg (3 Ml) Ud) 3 ml IH [id number] PRN PRN Reason: Shortness of Breath Atorvastatin Calcium (Lipitor) 20 mg PO HS [facility] Carvedilol (Coreg) 3.125 mg PO BID [facility] Last Admin: 06/08/18 09:44 Dose: 3.125 mg Colchicine (Colocrys) 0.6 mg PO DAILY [facility] Last Admin: 06/08/18 11:00 Dose: 0.6 mg Digoxin (Lanoxin) 0.25 mg PO 1400 [facility] Last Admin: 06/08/18 13:26 Dose: 0.25 mg Insulin Human Regular 100 (units/ Sodium Chloride) 100 mls @ 6 mls/hr IV .[id number] PRN; Protocol PRN Reason: TITRATE PER MD ORDER Piperacillin Sod/Tazobactam Sod (Zosyn 3.375 In Ns 100ml) 100 mls @ 200 mls/hr IVPB Q6 [facility]; Protocol Ondansetron HCl (Zofran Inj) 4 mg IVP Q6H PRN PRN Reason: Nausea/Vomiting Last Admin: 06/08/18 07:40 Dose: 4 mg Pantoprazole Sodium (Protonix Ec Tab) 40 mg PO 0600 [facility] Rivaroxaban (Xarelto) 20 mg PO DAILY [facility]; Protocol Last Admin: 06/08/18 11:10 Dose: 20 mg Family Hx: Breast cancer in grandmother DM in multiple family members. ROS: Positive abdominal pain, nausea, and vomiting. Positive fevers No chest pain, melena, hematuria, hematemesis, hematochezia, depression, anxiety, vision loss, hearing loss, loss of consciousness. Past Patient History - Infectious Disease Hx of Infectious Diseases: None - Past Social History Smoking Status: Never Smoked - CARDIAC Hx Cardiac Disorders: Yes Hx Hypercholesterolemia: Yes Hx Hypertension: Yes - PULMONARY Hx Respiratory Disorders: Yes Hx Asthma: Yes Hx Bronchitis: Yes Hx Pneumonia: Yes - NEUROLOGICAL Hx Neurological Disorder: Yes Hx Migraine: Yes - HEENT Hx HEENT Problems: Yes Hx Cataracts: Yes (Bilateral cataract sx in Jun 2016.) - RENAL Hx Pyelonephritis: Yes (Current: 06/07/18.) - ENDOCRINE/METABOLIC Hx Endocrine Disorders: Yes Hx Diabetes Mellitus Type 2: Yes (Hx of admissions for DKA) Hx Systemic Lupus Erythematosus: Yes - HEMATOLOGICAL/ONCOLOGICAL Hx Blood Disorders: No - INTEGUMENTARY Hx Dermatological Problems: No - MUSCULOSKELETAL/RHEUMATOLOGICAL Hx Musculoskeletal Disorders: Yes Hx Back Pain: Yes Hx Degenerative Joint Disease: Yes Hx Falls: Yes Hx Spinal Stenosis: Yes - GASTROINTESTINAL Hx Gastrointestinal Disorders: No - GENITOURINARY/GYNECOLOGICAL Hx Genitourinary Disorders: Yes (Hx of Ectopic then Tubal Ligation. Irregular menses.) - PSYCHIATRIC Hx Psychophysiologic Disorder: No (Drinks alcohol socially.) Hx Substance Use: No - SURGICAL HISTORY Hx Surgeries: Yes (Hx of Ectopic then Tubal Ligation.) - ANESTHESIA Hx Anesthesia: Yes Hx Anesthesia Reactions: No Hx Malignant Hyperthermia: No Meds Allergies/Adverse Reactions: Allergies Allergy/AdvReac Type Severity Reaction Status Date / Time steriods Allergy ANAPHYLAXIS Uncoded 06/07/18 15:09 - Medications Medications: Current Medications Acetaminophen (Tylenol 325mg Tab) 650 mg PO Q6H PRN PRN Reason: Pain, moderate (4-7) Last Admin: 06/08/18 13:24 Dose: 650 mg Albuterol/Ipratropium (Duoneb 3 Mg/0.5 Mg (3 Ml) Ud) 3 ml IH [id number] PRN PRN Reason: Shortness of Breath Atorvastatin Calcium (Lipitor) 20 mg PO HS [facility] Carvedilol (Coreg) 3.125 mg PO BID [facility] Last Admin: 06/08/18 09:44 Dose: 3.125 mg Colchicine (Colocrys) 0.6 mg PO DAILY [facility] Last Admin: 06/08/18 11:00 Dose: 0.6 mg Digoxin (Lanoxin) 0.25 mg PO 1400 [facility] Last Admin: 06/08/18 13:26 Dose: 0.25 mg Insulin Human Regular 100 (units/ Sodium Chloride) 100 mls @ 6 mls/hr IV .[id number] PRN; Protocol PRN Reason: TITRATE PER MD ORDER Piperacillin Sod/Tazobactam Sod (Zosyn 3.375 In Ns 100ml) 100 mls @ 200 mls/hr IVPB Q6 [facility]; Protocol Ondansetron HCl (Zofran Inj) 4 mg IVP Q6H PRN PRN Reason: Nausea/Vomiting Last Admin: 06/08/18 07:40 Dose: 4 mg Pantoprazole Sodium (Protonix Ec Tab) 40 mg PO 0600 [facility] Rivaroxaban (Xarelto) 20 mg PO DAILY [facility]; Protocol Last Admin: 06/08/18 11:10 Dose: 20 mg Physical Exam - Constitutional Appears: Non-toxic, No Acute Distress Additional comments: Obese - Head Exam Head Exam: ATRAUMATIC, NORMOCEPHALIC - Eye Exam Eye Exam: EOMI, PERRL Pupil Exam: NORMAL ACCOMODATION, PERRL - ENT Exam ENT Exam: Mucous Membranes Moist, Normal External Ear Exam, TM's Normal Bilaterally - Neck Exam Neck exam: Positive for: Full Rom, Normal Inspection - Respiratory Exam Respiratory Exam: Clear to Auscultation Bilateral, NORMAL BREATHING PATTERN. absent: Rales, Rhonchi, Wheezes - Cardiovascular Exam Cardiovascular Exam: Tachycardia, RRR, +S1, +S2 - GI/Abdominal Exam GI & Abdominal Exam: Normal Bowel Sounds, Soft. absent: Distended, Tenderness - Extremities Exam Extremities exam: Positive for: full ROM, normal inspection. Negative for: joint swelling, pedal edema - Neurological Exam Neurological exam: Alert, CN II-XII Intact, Oriented x3 - Psychiatric Exam Psychiatric exam: Normal Affect, Normal Mood - Skin Skin Exam: Intact, Normal Color Results - Vital Signs Recent Vital Signs: Last Vital Signs Temp 98.6 F 06/08/18 04:00 Pulse 105 H 06/08/18 14:50 Resp 28 H 06/08/18 14:50 BP 103/62 06/08/18 12:00 Pulse Ox 95 06/08/18 14:50 - Labs Result Diagrams: 06/08/18 07:30 06/08/18 10:10 Labs: Laboratory Results - last 24 hr 06/07/18 06/07/18 06/07/18 15:40 15:40 15:40 WBC 16.1 H D RBC 5.37 Hgb 13.8 Hct 42.1 MCV 78.4 L MCH 25.7 MCHC 32.8 RDW 14.5 Plt Count 308 MPV 10.5 Gran % 90.2 H Lymph % (Auto) 8.2 L [place] % (Auto) 1.5 Eos % (Auto) 0.0 L Baso % (Auto) 0.1 Gran # 14.51 H Lymph # (Auto) 1.3 [place] # (Auto) 0.2 Eos # (Auto) 0.0 Baso # (Auto) 0.01 Neutrophils % (Manual) 76 H Band Neutrophils % 1 Lymphocytes % (Manual) 19 L Monocytes % (Manual) 3 Metamyelocytes % 1 Platelet Evaluation Normal Large Platelets Present PT 14.6 H INR 1.27 APTT 27.2 pO2 VBG pH VBG pCO2 VBG HCO3 VBG Total CO2 VBG O2 Sat (Calc) VBG Base Excess VBG Potassium Glucose Lactate FiO2 Sodium 129 L Potassium 6.5 H* D Chloride 91 L Carbon Dioxide 17 L Anion Gap 28 H BUN 13 Creatinine 1.2 Est GFR ( Amer) 58 Est GFR (Non-Af Amer) 48 POC Glucose (mg/dL) Random Glucose 769 H* D Hemoglobin A1c Calcium 10.6 H Phosphorus 4.1 Magnesium 2.2 Total Bilirubin 1.3 AST 25 ALT 21 Alkaline Phosphatase 322 H D Troponin I < 0.01 D NT-Pro-B Natriuret Pep 426 Total Protein 8.4 H Albumin 4.2 Globulin 4.2 Albumin/Globulin Ratio 1.0 L Triglycerides Cholesterol LDL Cholesterol Direct HDL Cholesterol Lipase TSH 3rd Generation Cortisol AM Sample Venous Blood Potassium Urine Color Urine Appearance Urine pH Ur Specific [place] Urine Protein Urine Glucose (UA) Urine Ketones Urine Blood Urine Nitrate Urine Bilirubin Urine Urobilinogen Ur Leukocyte Esterase Urine RBC Urine WBC Ur Epithelial Cells Urine Bacteria Urine Other 06/07/18 06/07/18 06/07/18 15:50 16:10 16:26 WBC RBC Hgb Hct MCV MCH MCHC RDW Plt Count MPV Gran % Lymph % (Auto) [place] % (Auto) Eos % (Auto) Baso % (Auto) Gran # Lymph # (Auto) [place] # (Auto) Eos # (Auto) Baso # (Auto) Neutrophils % (Manual) Band Neutrophils % Lymphocytes % (Manual) Monocytes % (Manual) Metamyelocytes % Platelet Evaluation Large Platelets PT INR APTT pO2 37 VBG pH 7.21 L VBG pCO2 45.0 VBG HCO3 18.0 L VBG Total CO2 19.4 L VBG O2 Sat (Calc) 65.6 H VBG Base Excess -9.7 L VBG Potassium 11.3 H* Glucose > 750 H* D Lactate 6.9 H* FiO2 21.0 Sodium 124.0 L Potassium Chloride 87.0 L Carbon Dioxide Anion Gap BUN Creatinine Est GFR ( Amer) Est GFR (Non-Af Amer) POC Glucose (mg/dL) > 500 H* Random Glucose Hemoglobin A1c Calcium Phosphorus Magnesium Total Bilirubin AST ALT Alkaline Phosphatase Troponin I NT-Pro-B Natriuret Pep Total Protein Albumin Globulin Albumin/Globulin Ratio Triglycerides Cholesterol LDL Cholesterol Direct HDL Cholesterol Lipase TSH 3rd Generation Cortisol AM Sample Venous Blood Potassium 11.3 H* Urine Color Straw Urine Appearance Sl cloudy Urine pH 6.0 Ur Specific [place] 1.010 Urine Protein 30 H Urine Glucose (UA) >=1000 Urine Ketones 40 H Urine Blood Large H Urine Nitrate Negative Urine Bilirubin Negative Urine Urobilinogen 0.2 Ur Leukocyte Esterase Negative Urine RBC 2 - 5 Urine WBC 5 - 10 Ur Epithelial Cells 0 - 2 Urine Bacteria Trace Urine Other Trichomonas 06/07/18 06/07/18 06/07/18 17:51 18:55 18:56 WBC RBC Hgb Hct MCV MCH MCHC RDW Plt Count MPV Gran % Lymph % (Auto) [place] % (Auto) Eos % (Auto) Baso % (Auto) Gran # Lymph # (Auto) [place] # (Auto) Eos # (Auto) Baso # (Auto) Neutrophils % (Manual) Band Neutrophils % Lymphocytes % (Manual) Monocytes % (Manual) Metamyelocytes % Platelet Evaluation Large Platelets PT INR APTT pO2 88 H VBG pH 7.32 VBG pCO2 39.0 L VBG HCO3 20.1 L VBG Total CO2 21.3 L VBG O2 Sat (Calc) 98.5 H VBG Base Excess -5.6 L VBG Potassium 5.3 H Glucose 671 H* Lactate 3.5 H FiO2 21.0 Sodium 132.0 Potassium Chloride 96.0 L Carbon Dioxide Anion Gap BUN Creatinine Est GFR ( Amer) Est GFR (Non-Af Amer) POC Glucose (mg/dL) > 500 H* > 500 H* Random Glucose Hemoglobin A1c Calcium Phosphorus Magnesium Total Bilirubin AST ALT Alkaline Phosphatase Troponin I NT-Pro-B Natriuret Pep Total Protein Albumin Globulin Albumin/Globulin Ratio Triglycerides Cholesterol LDL Cholesterol Direct HDL Cholesterol Lipase TSH 3rd Generation Cortisol AM Sample Venous Blood Potassium 5.3 H Urine Color Urine Appearance Urine pH Ur Specific [place] Urine Protein Urine Glucose (UA) Urine Ketones Urine Blood Urine Nitrate Urine Bilirubin Urine Urobilinogen Ur Leukocyte Esterase Urine RBC Urine WBC Ur Epithelial Cells Urine Bacteria Urine Other 06/07/18 06/07/18 06/07/18 20:07 21:10 23:30 WBC RBC Hgb Hct MCV MCH MCHC RDW Plt Count MPV Gran % Lymph % (Auto) [place] % (Auto) Eos % (Auto) Baso % (Auto) Gran # Lymph # (Auto) [place] # (Auto) Eos # (Auto) Baso # (Auto) Neutrophils % (Manual) Band Neutrophils % Lymphocytes % (Manual) Monocytes % (Manual) Metamyelocytes % Platelet Evaluation Large Platelets PT INR APTT pO2 VBG pH VBG pCO2 VBG HCO3 VBG Total CO2 VBG O2 Sat (Calc) VBG Base Excess VBG Potassium Glucose Lactate FiO2 Sodium 139 Potassium 4.3 Chloride 106 Carbon Dioxide 22 Anion Gap 15 BUN 12 Creatinine 1.1 Est GFR ( Amer) > 60 Est GFR (Non-Af Amer) 53 POC Glucose (mg/dL) 430 H* 330 H Random Glucose 422 H* D Hemoglobin A1c Calcium 8.9 Phosphorus Magnesium Total Bilirubin AST ALT Alkaline Phosphatase Troponin I 0.01 NT-Pro-B Natriuret Pep Total Protein Albumin Globulin Albumin/Globulin Ratio Triglycerides Cholesterol LDL Cholesterol Direct HDL Cholesterol Lipase TSH 3rd Generation Cortisol AM Sample Venous Blood Potassium Urine Color Urine Appearance Urine pH Ur Specific [place] Urine Protein Urine Glucose (UA) Urine Ketones Urine Blood Urine Nitrate Urine Bilirubin Urine Urobilinogen Ur Leukocyte Esterase Urine RBC Urine WBC Ur Epithelial Cells Urine Bacteria Urine Other 06/08/18 06/08/18 06/08/18 00:10 01:14 02:00 WBC RBC Hgb Hct MCV MCH MCHC RDW Plt Count MPV Gran % Lymph % (Auto) [place] % (Auto) Eos % (Auto) Baso % (Auto) Gran # Lymph # (Auto) [place] # (Auto) Eos # (Auto) Baso # (Auto) Neutrophils % (Manual) Band Neutrophils % Lymphocytes % (Manual) Monocytes % (Manual) Metamyelocytes % Platelet Evaluation Large Platelets PT INR APTT pO2 VBG pH VBG pCO2 VBG HCO3 VBG Total CO2 VBG O2 Sat (Calc) VBG Base Excess VBG Potassium Glucose Lactate FiO2 Sodium 140 Potassium 4.2 Chloride 108 H Carbon Dioxide 23 Anion Gap 12 BUN 11 Creatinine 1.1 Est GFR ( Amer) > 60 Est GFR (Non-Af Amer) 53 POC Glucose (mg/dL) 359 H 326 H Random Glucose 361 H* Hemoglobin A1c Calcium 8.7 Phosphorus Magnesium Total Bilirubin AST ALT Alkaline Phosphatase Troponin I 0.03 D NT-Pro-B Natriuret Pep Total Protein Albumin Globulin Albumin/Globulin Ratio Triglycerides Cholesterol LDL Cholesterol Direct HDL Cholesterol Lipase TSH 3rd Generation Cortisol AM Sample Venous Blood Potassium Urine Color Urine Appearance Urine pH Ur Specific [place] Urine Protein Urine Glucose (UA) Urine Ketones Urine Blood Urine Nitrate Urine Bilirubin Urine Urobilinogen Ur Leukocyte Esterase Urine RBC Urine WBC Ur Epithelial Cells Urine Bacteria Urine Other 06/08/18 06/08/18 06/08/18 02:00 02:58 04:03 WBC RBC Hgb Hct MCV MCH MCHC RDW Plt Count MPV Gran % Lymph % (Auto) [place] % (Auto) Eos % (Auto) Baso % (Auto) Gran # Lymph # (Auto) [place] # (Auto) Eos # (Auto) Baso # (Auto) Neutrophils % (Manual) Band Neutrophils % Lymphocytes % (Manual) Monocytes % (Manual) Metamyelocytes % Platelet Evaluation Large Platelets PT INR APTT pO2 VBG pH VBG pCO2 VBG HCO3 VBG Total CO2 VBG O2 Sat (Calc) VBG Base Excess VBG Potassium Glucose Lactate FiO2 Sodium Potassium Chloride Carbon Dioxide Anion Gap BUN Creatinine Est GFR ( Amer) Est GFR (Non-Af Amer) POC Glucose (mg/dL) 331 H 323 H 369 H Random Glucose Hemoglobin A1c Calcium Phosphorus Magnesium Total Bilirubin AST ALT Alkaline Phosphatase Troponin I NT-Pro-B Natriuret Pep Total Protein Albumin Globulin Albumin/Globulin Ratio Triglycerides Cholesterol LDL Cholesterol Direct HDL Cholesterol Lipase TSH 3rd Generation Cortisol AM Sample Venous Blood Potassium Urine Color Urine Appearance Urine pH Ur Specific [place] Urine Protein Urine Glucose (UA) Urine Ketones Urine Blood Urine Nitrate Urine Bilirubin Urine Urobilinogen Ur Leukocyte Esterase Urine RBC Urine WBC Ur Epithelial Cells Urine Bacteria Urine Other 06/08/18 06/08/18 06/08/18 05:30 05:30 05:30 WBC RBC Hgb Hct MCV MCH MCHC RDW Plt Count MPV Gran % Lymph % (Auto) [place] % (Auto) Eos % (Auto) Baso % (Auto) Gran # Lymph # (Auto) [place] # (Auto) Eos # (Auto) Baso # (Auto) Neutrophils % (Manual) Band Neutrophils % Lymphocytes % (Manual) Monocytes % (Manual) Metamyelocytes % Platelet Evaluation Large Platelets PT INR APTT pO2 VBG pH VBG pCO2 VBG HCO3 VBG Total CO2 VBG O2 Sat (Calc) VBG Base Excess VBG Potassium Glucose Lactate FiO2 Sodium 141 Potassium 3.9 Chloride 109 H Carbon Dioxide 25 Anion Gap 11 BUN 12 Creatinine 1.1 Est GFR ( Amer) > 60 Est GFR (Non-Af Amer) 53 POC Glucose (mg/dL) Random Glucose 325 H* Hemoglobin A1c 14.9 H D Calcium 9.0 Phosphorus 2.4 L Magnesium 2.1 Total Bilirubin 0.6 AST 23 ALT 16 Alkaline Phosphatase 200 H D Troponin I NT-Pro-B Natriuret Pep Total Protein 6.7 Albumin 3.1 Globulin 3.6 Albumin/Globulin Ratio 0.9 L Triglycerides 356 H Cholesterol 108 L LDL Cholesterol Direct < 30 HDL Cholesterol 18 L Lipase 20 L TSH 3rd Generation Cortisol AM Sample 35.8 H Venous Blood Potassium Urine Color Urine Appearance Urine pH Ur Specific [place] Urine Protein Urine Glucose (UA) Urine Ketones Urine Blood Urine Nitrate Urine Bilirubin Urine Urobilinogen Ur Leukocyte Esterase Urine RBC Urine WBC Ur Epithelial Cells Urine Bacteria Urine Other 06/08/18 06/08/18 06/08/18 05:30 05:33 07:30 WBC 19.3 H RBC 4.19 Hgb 11.0 L D Hct 32.4 L MCV 77.3 L MCH 26.3 MCHC 34.0 RDW 14.4 Plt Count 267 MPV 10.3 Gran % 86.2 H Lymph % (Auto) 8.1 L [place] % (Auto) 5.5 Eos % (Auto) 0.1 L Baso % (Auto) 0.1 Gran # 16.60 H Lymph # (Auto) 1.6 [place] # (Auto) 1.1 H Eos # (Auto) 0.0 Baso # (Auto) 0.02 Neutrophils % (Manual) Band Neutrophils % Lymphocytes % (Manual) Monocytes % (Manual) Metamyelocytes % Platelet Evaluation Large Platelets PT INR APTT pO2 VBG pH VBG pCO2 VBG HCO3 VBG Total CO2 VBG O2 Sat (Calc) VBG Base Excess VBG Potassium Glucose Lactate FiO2 Sodium Potassium Chloride Carbon Dioxide Anion Gap BUN Creatinine Est GFR ( Amer) Est GFR (Non-Af Amer) POC Glucose (mg/dL) 306 H Random Glucose Hemoglobin A1c Calcium Phosphorus Magnesium Total Bilirubin AST ALT Alkaline Phosphatase Troponin I NT-Pro-B Natriuret Pep Total Protein Albumin Globulin Albumin/Globulin Ratio Triglycerides Cholesterol LDL Cholesterol Direct HDL Cholesterol Lipase TSH 3rd Generation 0.37 L Cortisol AM Sample Venous Blood Potassium Urine Color Urine Appearance Urine pH Ur Specific [place] Urine Protein Urine Glucose (UA) Urine Ketones Urine Blood Urine Nitrate Urine Bilirubin Urine Urobilinogen Ur Leukocyte Esterase Urine RBC Urine WBC Ur Epithelial Cells Urine Bacteria Urine Other 06/08/18 06/08/18 06/08/18 08:04 09:54 10:10 WBC RBC Hgb Hct MCV MCH MCHC RDW Plt Count MPV Gran % Lymph % (Auto) [place] % (Auto) Eos % (Auto) Baso % (Auto) Gran # Lymph # (Auto) [place] # (Auto) Eos # (Auto) Baso # (Auto) Neutrophils % (Manual) Band Neutrophils % Lymphocytes % (Manual) Monocytes % (Manual) Metamyelocytes % Platelet Evaluation Large Platelets PT INR APTT pO2 VBG pH VBG pCO2 VBG HCO3 VBG Total CO2 VBG O2 Sat (Calc) VBG Base Excess VBG Potassium Glucose Lactate FiO2 Sodium 139 Potassium 4.1 Chloride 107 Carbon Dioxide 21 Anion Gap 15 BUN 13 Creatinine 1.0 Est GFR ( Amer) > 60 Est GFR (Non-Af Amer) 59 POC Glucose (mg/dL) 308 H 335 H Random Glucose 439 H* D Hemoglobin A1c Calcium 8.8 Phosphorus Magnesium Total Bilirubin AST ALT Alkaline Phosphatase Troponin I NT-Pro-B Natriuret Pep Total Protein Albumin Globulin Albumin/Globulin Ratio Triglycerides Cholesterol LDL Cholesterol Direct HDL Cholesterol Lipase TSH 3rd Generation Cortisol AM Sample Venous Blood Potassium Urine Color Urine Appearance Urine pH Ur Specific [place] Urine Protein Urine Glucose (UA) Urine Ketones Urine Blood Urine Nitrate Urine Bilirubin Urine Urobilinogen Ur Leukocyte Esterase Urine RBC Urine WBC Ur Epithelial Cells Urine Bacteria Urine Other 06/08/18 06/08/18 06/08/18 11:05 11:50 13:03 WBC RBC Hgb Hct MCV MCH MCHC RDW Plt Count MPV Gran % Lymph % (Auto) [place] % (Auto) Eos % (Auto) Baso % (Auto) Gran # Lymph # (Auto) [place] # (Auto) Eos # (Auto) Baso # (Auto) Neutrophils % (Manual) Band Neutrophils % Lymphocytes % (Manual) Monocytes % (Manual) Metamyelocytes % Platelet Evaluation Large Platelets PT INR APTT pO2 VBG pH VBG pCO2 VBG HCO3 VBG Total CO2 VBG O2 Sat (Calc) VBG Base Excess VBG Potassium Glucose Lactate FiO2 Sodium Potassium Chloride Carbon Dioxide Anion Gap BUN Creatinine Est GFR ( Amer) Est GFR (Non-Af Amer) POC Glucose (mg/dL) 425 H* 426 H* 403 H* Random Glucose Hemoglobin A1c Calcium Phosphorus Magnesium Total Bilirubin AST ALT Alkaline Phosphatase Troponin I NT-Pro-B Natriuret Pep Total Protein Albumin Globulin Albumin/Globulin Ratio Triglycerides Cholesterol LDL Cholesterol Direct HDL Cholesterol Lipase TSH 3rd Generation Cortisol AM Sample Venous Blood Potassium Urine Color Urine Appearance Urine pH Ur Specific [place] Urine Protein Urine Glucose (UA) Urine Ketones Urine Blood Urine Nitrate Urine Bilirubin Urine Urobilinogen Ur Leukocyte Esterase Urine RBC Urine WBC Ur Epithelial Cells Urine Bacteria Urine Other 06/08/18 14:20 WBC RBC Hgb Hct MCV MCH MCHC RDW Plt Count MPV Gran % Lymph % (Auto) [place] % (Auto) Eos % (Auto) Baso % (Auto) Gran # Lymph # (Auto) [place] # (Auto) Eos # (Auto) Baso # (Auto) Neutrophils % (Manual) Band Neutrophils % Lymphocytes % (Manual) Monocytes % (Manual) Metamyelocytes % Platelet Evaluation Large Platelets PT INR APTT pO2 VBG pH VBG pCO2 VBG HCO3 VBG Total CO2 VBG O2 Sat (Calc) VBG Base Excess VBG Potassium Glucose Lactate FiO2 Sodium Potassium Chloride Carbon Dioxide Anion Gap BUN Creatinine Est GFR ( Amer) Est GFR (Non-Af Amer) POC Glucose (mg/dL) > 500 H* Random Glucose Hemoglobin A1c Calcium Phosphorus Magnesium Total Bilirubin AST ALT Alkaline Phosphatase Troponin I NT-Pro-B Natriuret Pep Total Protein Albumin Globulin Albumin/Globulin Ratio Triglycerides Cholesterol LDL Cholesterol Direct HDL Cholesterol Lipase TSH 3rd Generation Cortisol AM Sample Venous Blood Potassium Urine Color Urine Appearance Urine pH Ur Specific [place] Urine Protein Urine Glucose (UA) Urine Ketones Urine Blood Urine Nitrate Urine Bilirubin Urine Urobilinogen Ur Leukocyte Esterase Urine RBC Urine WBC Ur Epithelial Cells Urine Bacteria Urine Other Assessment & Plan - Assessment and Plan (Free Text) Assessment: 48 yo female with UTI, bacteremia, septicemia, DM, and DKA on presentation. Gram negative rods on all blood cultures drawn at time of admission. Full identification and specificities pending. Continue on IV Vancomycin and Zosyn for antibiotic coverage. Supportive care. May need stronger antibiotic coverage depending on results of the blood cultures. Appears to be slowly improving compared to admission. The patient remains tachycardic at this time. Montior renal function as currently the patient's renal function is borderline. Thank you for allowing me to participate in the care of the patient, we will follow with you.
[2018-06-08 15:17] LABS: BLOOD UREA NITROGEN 13 mg/dL (7-21); CALCIUM 8.4 mg/dL (8.4-10.5); GFR NON-AFRICAN AMERICAN 53
[2018-06-08] MEDS ORDERED: Ipratropium 0.02% Inhal Soln (0.5 mg/2.5 ml) UD IH PRN (17:34)
[2018-06-08] MEDS ORDERED: CHLORZOXAZONE 500 MG PO PRN (17:34)
[2018-06-08] MEDS ORDERED: Albuterol 0.083% Inhal Sol (2.5 mg/3 mL) UD IH PRN (17:34)
[2018-06-08] MEDS: Piperacillin/Tazobact 3.375 gm 100 ML IVPB SCH ×2 (17:37→23:10)
[2018-06-08 19:11] LABS: BLOOD UREA NITROGEN 14 mg/dL (7-21); CALCIUM 8.7 mg/dL (8.4-10.5); GFR NON-AFRICAN AMERICAN 53
--- NOTE | 2018-06-08 19:22 | CON ---
DATE: 06/08/2018 CARDIOLOGY CONSULTATION REASON FOR CONSULTATION: Abnormal EKG. HISTORY OF PRESENT ILLNESS: The patient is 48 years old female who has a history of diabetes mellitus, coronary artery disease, congestive heart failure, presented because of lower abdominal pain, nausea, and vomiting as well as fever for the past 3 days. The patient denies any retrosternal chest pain at this time, and the patient was seen and followed by her director of sustainability programs, Dr. Catherine at his [place] office. The patient denies any recent coronary intervention. SOCIAL HISTORY: Nonsmoker. MEDICATIONS: Colchicine 0.6 mg daily, Coreg 3.125 mg once a day, Lipitor inhaler every 6 hours, digoxin 0.25 mg orally daily, Lipitor 20 mg once a day, Protonix 40 mg p.o. once a day, Xarelto 20 mg once a day, Zosyn 3.375 g intravenously every 6 hours. PHYSICAL EXAMINATION: GENERAL: The patient is a middle-aged female who does not appear to be in acute distress. VITAL SIGNS: Blood pressure 103/63, heart rate 103, respirations 28, and temperature 98.6. HEENT: Normocephalic. CHEST: Bilateral rhonchi. HEART: S1 and S2, regular. ABDOMEN: Mild bilateral lower abdominal tenderness. No guarding or rigidity. EXTREMITIES: Trace leg edema. LABORATORY DATA: SMA-7: Sodium 135, potassium 4.2, chloride 103, CO2 of 25. Glucose 537. BUN 13, creatinine 1.1. Hemoglobin and hematocrit 11 and 32.4 respectively, white count 19.3, platelet count 167,000. PT 14.6, PTT 27.2. EKG revealed sinus tachycardia with nonspecific ST-T wave changes, although it was officially read as consistent with ischemia. Troponin is 0.03 and 0.01. Hemoglobin A1c is 8.9. Preliminary echo report revealed ejection fraction measured at 46% and right ventricular systolic pressure measured at 42 mmHg. Lipase is 20. Gallbladder ultrasound revealed nonobstructive right interpolar calculus. Mild renal hydronephrosis. Normal gallbladder. Abdomen and pelvis CT scan with IV contrast revealed upper urinary tract inflammatory changes bilaterally left greater than right, likely presenting pyelonephritis. No evidence of obstructive uropathy. Blood culture was negative for gram-negative rods. Urinalysis was positive for trichomonas and a large blood, most likely related to the patient's urolithiasis. ASSESSMENT 1. Mild depressed left ventricular systolic function. 2. Gram-negative bacteremia. 3. Consider bilateral pyelonephritis. 4. Questionable history for either atrial fibrillation or deep vein thrombosis as the patient is on Xarelto. The most recent venous Doppler lower extremity was in 03/2017, which was negative and the most recent CT angiogram with pulmonary embolism protocol in 02/2017, which was negative for pulmonary embolus. 5. Diabetic ketoacidosis. RECOMMENDATIONS: Continue current Coreg 3.125 mg twice a day, Lanoxin 0.25 mg orally daily, Lipitor 20 mg once a day, Xarelto 20 mg once a day, Zosyn 3.375 g intravenously every 6 hours. Consider initiating EITAN inhibitors. Jason Schwartz MD
[2018-06-08] MEDS: Arformoterol 15 mcg/2 ml Inh Sol IH SCH (19:42)
[2018-06-08] MEDS: Budesonide 0.5 mg/2 ml Inhal Susp UD IH SCH (19:43)
[2018-06-08] MEDS ORDERED: Potassium Chloride 20 mEq ER Tab PO STA (20:06)
[2018-06-08] MEDS ORDERED: Insulin Detemir 100 units/ml Vial (Levemir) SC STA (20:40)
[2018-06-08] MEDS ORDERED: Dextrose 50% SYRINGE Inj (50 ml) IV PRN (20:40)
[2018-06-08] MEDS: Insulin Reg-HIGH-Coverage SC SCH (23:00)
[2018-06-08] MEDS ORDERED: Potassium Chloride 20 mEq ER Tab PO ONE (23:00)
[2018-06-08 23:04] LABS: CALCIUM 8.6 mg/dL (8.4-10.5)
[2018-06-09 01:30] LABS: CALCIUM 8.6 mg/dL (8.4-10.5)
--- NOTE | 2018-06-09 03:24 | CP.PCM.PCO ---
Physician Communication Note - Physician Communication Note Physician Communication Note: with gram negative edison growth, will keep to zosyn alone
[2018-06-09] MEDS: Piperacillin/Tazobact 3.375 gm 100 ML IVPB SCH ×3 (05:45→17:02)
[2018-06-09 06:26] LABS: BASO # 0.01 K/mm3 (0.0-2.0); BASO % 0.1 % (0.0-3.0); EOS % 0.1 % (1.5-5.0); GRAN # 13.19 (1.4-6.5); GRAN % 86.9 % (50.0-68.0); HEMOGLOBIN 10.2 g/dL (12.0-16.0); LYMPH # 1.1 (1.2-3.4); LYMPH % 7.2 % (22.0-35.0); MEAN CELL VOLUME 78.3 fl (80.0-105.0); MEAN CORPUSCULAR HEMOGLOBIN 25.2 pg (25.0-35.0); MEAN CORPUSCULAR HGB CONC 32.2 g/dl (31.0-37.0); MONO # 0.9 (0.1-0.6); MONO % 5.7 % (1.0-6.0); RBC 4.05 10^6/uL (3.5-6.1); WHITE BLOOD COUNT 15.2 10^3/ul (4.5-11.0)
[2018-06-09 06:43] LABS: ALB/GLOB RATIO 0.9 (1.1-1.8); ALBUMIN 2.9 g/dL (3.0-4.8); CALCIUM 8.3 mg/dL (8.4-10.5)
[2018-06-09] MEDS: Pantoprazole 40 mg EC Tab PO SCH (07:00)
[2018-06-09] MEDS: Arformoterol 15 mcg/2 ml Inh Sol IH SCH ×2 (07:22→20:23)
[2018-06-09] MEDS: Budesonide 0.5 mg/2 ml Inhal Susp UD IH SCH ×2 (07:23→13:39)
--- NOTE | 2018-06-09 08:11 | CARD ---
APPROVED REPORT Date of service: 06/08/2018 EXAM: Two-dimensional and M-mode echocardiogram with Doppler and color Doppler. Other Information Quality : AverageRhythm : INDICATION Congestive Heart Failure 2D DIMENSIONS RVDd2.9 (2.9-3.5cm)Left Atrium (2D)3.9 (1.6-4.0cm) IVSd1.2 (0.7-1.1cm)LVDd4.3 (3.9-5.9cm) PWd1.2 (0.7-1.1cm)LVDs3.3 (2.5-4.0cm) FS (%) 22.7 %LVEF (%)46.0 (>50%) M-Mode DIMENSIONS Aortic Root3.20 (2.2-3.7cm)Aortic Cusp Exc.1.80 (1.5-2.0cm) Aortic Valve AoV Peak Vdfkjgcp672.0cm/s Mitral Valve MV E Otyahsrr88.5cm/sMV A Duujzszc09.7cm/sE/A ratio1.1 TDI Lateral E' Peak V8.29cm/sMedial E' Peak V8.68cm/sE/Lateral E'10.2 E/Medial E'9.7 Pulmonary Valve PV Peak Evnaqtkx36.0cm/sPV Peak Grad.2mmHg Tricuspid Valve TR Peak Jlthahnv411zp/sRAP KEHOCSVN50kqFhDE Peak Gr.32mmHg [id number] LEFT VENTRICLE The left ventricle is normal size. There is normal left ventricular wall thickness. Left ventricle systolic function is mildly impaired. The Ejection Fraction is 40-45%. There is mild global hypokinesis. RIGHT VENTRICLE The right ventricle is normal size. ATRIA The left atrium size is normal. The right atrium size is normal. The interatrial septum is intact with no evidence for an atrial septal defect. AORTIC VALVE The aortic valve is normal in structure. There is trace aortic regurgitation. MITRAL VALVE The mitral valve is normal in structure. Mitral regurgitation is trace. TRICUSPID VALVE The tricuspid valve is normal in structure. There is mild tricuspid regurgitation. PULMONIC VALVE The pulmonic valve is not well visualized. GREAT VESSELS The aortic root is normal in size. PERICARDIAL EFFUSION There is no pericardial effusion. <Conclusion> The left ventricle is normal size. There is normal left ventricular wall thickness. Left ventricle systolic function is mildly impaired. The Ejection Fraction is 40-45%. There is mild global hypokinesis. There is mild tricuspid regurgitation. There is trace aortic regurgitation. Mitral regurgitation is trace.
[2018-06-09] MEDS: Insulin Reg-HIGH-Coverage SC SCH (08:57)
[2018-06-09] MEDS: Olopatadine 0.1% Opht Sol OU SCH (09:11)
[2018-06-09] MEDS: Fluticasone Nasal 50 mcg/Spray NS SCH (09:11)
[2018-06-09 10:49] LABS: BLOOD UREA NITROGEN 18 mg/dL (7-21); GFR NON-AFRICAN AMERICAN 53
[2018-06-09] MEDS ORDERED: Insulin Reg-LOW-Coverage SC STA (11:51)
--- NOTE | 2018-06-09 13:17 | PN ---
DATE: 06/09/2018 ROTOPRINTER NOTE LOCATION: At [facility]. SUBJECTIVE: The patient is sitting on the side of the bed, eating lunch. No complaints of shortness of breath, cough, wheezing, chest congestion. No fever, chills, nausea or vomiting. No abdominal pain. No diarrhea. The patient states that she is feeling much better. PHYSICAL EXAMINATION: VITAL SIGNS: Physical exam note that her temperature is 98.2, her pulse is 115, respirations are 19 and BP is 150/72, O2 saturation is 100% on room air. HEENT: Head is atraumatic, normocephalic. Eyes reactive to light. Ears, nose and throat seemed to be within normal limits. NECK: Supple. No JVD. No thyroid enlargement. No lymph nodes. HEART: Regular rate and rhythm. Normal S1 and S2, but tachycardic. LUNGS: Reveal decreased breath sounds at the bases. ABDOMEN: Soft. Decreased bowel sounds. GENITALIA AND RECTAL: Deferred. MUSCULOSKELETAL: No joint deformities. EXTREMITIES: Reveal positive lower extremity edema. NEUROLOGICAL: She seems to be grossly intact. LABORATORY DATA: As far as her laboratories are concerned, white count is 15.2, hemoglobin is 10.2, hematocrit 31.7 with platelets of 233,000. Sodium is 135, potassium 4.6, chloride 102, CO2 of 23 with a BUN of 18, creatinine of 1.1 and a glucose of 343. IMPRESSION: My impression is that the patient briefly presented with diabetic ketoacidosis, felt to be in sepsis, possibly secondary to pyelonephritis. The patient has gram-negative rods in the blood. She has history of cardiomyopathy with an ejection fraction of 30% and obesity, diabetes, coronary artery disease, systemic lupus erythematosus, pituitary tumor and anemia. PLAN: As far as our plan, we will continue to monitor closely. The patient is getting IV fluids, has been started on a diabetic diet and had been given Levemir. We will follow her fingersticks closely. She is on albuterol as a bronchodilator and ipratropium bromide. She is also getting Coreg as well as her colchicine and is also getting digoxin as well as Levemir, Lipitor, Neurontin, Protonix, Pulmicort, Zosyn and Tylenol p.r.n. The patient will be evaluated for possible transfer to telemetry. We will continue to treat aggressively along with the other consultants and the primary care doctor. Syed Au MD
--- NOTE | 2018-06-09 13:44 | PN ---
DATE: 06/09/2018 LOCATION: In ICU 129, room 7. This is a 48-year-old female with recent uncontrolled type 2 insulin-requiring diabetes presenting here with diabetic ketoacidosis and dehydration and has since then improved clinically and metabolically as noted. However, today's glucose values are markedly elevated, ranging from 305 to 318 mg/dL. Her chemistry showed a BUN of 18, sodium 135, potassium 4.6, chloride 102, CO2 23, glucose 347 and creatinine 1.1. She has been taken off the insulin drip at this time and placed on a high-dose correction scale with regular insulin as given. To optimize metabolic control, we will switch her over to a more physiologic basal and bolus insulin drug combination with Humalog given as 14 units subcu t.i.d. before meals to start at lunchtime today as ordered. We will also add basal insulin given as Levemir at 30 units subcu at bedtime daily to start tonight. We will titrate her dose regimen to optimize metabolic control. We will restart IV hydration with half-normal saline running at 100 mL/hour as ordered. We will obtain serial chemistries and supplement accordingly as needed. We will follow. Aisha Purvis MD
[2018-06-09 14:00] LABS: CALCIUM 7.8 mg/dL (8.4-10.5); GFR NON-AFRICAN AMERICAN 59
[2018-06-09 14:01] LABS: BLOOD UREA NITROGEN 20 mg/dL (7-21)
--- NOTE | 2018-06-09 14:33 | CP.PCM.PN ---
<Castro Melvin - Last Filed: 06/09/18 18:21> Subjective - Date & Time of Evaluation Date of Evaluation: 06/09/18 Time of Evaluation: 14:29 - Subjective Subjective: Internal Medicine Progress Note (Hospitalist Service): Jhony PGY2 Patient seen and assessed at bedside in ICU. Patient reports that she had a headache overnight but that this was relieved by PRN Tylenol. She denies any complaints at this time including fevers, chills, headache, chest pain, SOB, abdominal pain, N/V/D/C, changes in urine output, or any skin changes. Objective - Vital Signs/Intake and Output Vital Signs (last 24 hours): Temp Pulse Resp BP Pulse Ox 98.2 F 115 H 19 150/72 100 06/09/18 04:00 06/09/18 09:40 06/09/18 09:40 06/09/18 09:10 06/09/18 09:40 Intake and Output: 06/09/18 06/09/18 06:59 18:59 Intake Total 864 Output Total 500 Balance 364 - Medications Medications: Current Medications Acetaminophen (Tylenol 325mg Tab) 650 mg PO Q6H PRN PRN Reason: Pain, moderate (4-7) Last Admin: 06/09/18 02:22 Dose: 650 mg Albuterol Sulfate (Albuterol 0.083% Inhal Ana (2.5 Mg/3 Ml) Ud) 2.5 mg IH Q8 PRN PRN Reason: Shortness of Breath Arformoterol Tartrate (Brovana) 15 mcg IH [id number] [facility] Last Admin: 06/09/18 07:22 Dose: 15 mcg Atorvastatin Calcium (Lipitor) 20 mg PO HS [facility] Last Admin: 06/08/18 21:33 Dose: 20 mg Budesonide (Pulmicort Respules) 0.5 mg IH BID [facility] Last Admin: 06/09/18 13:39 Dose: Not Given Carvedilol (Coreg) 6.25 mg PO BID [facility] Last Admin: 06/09/18 09:10 Dose: 6.25 mg Colchicine (Colocrys) 0.6 mg PO DAILY [facility] Last Admin: 06/09/18 09:24 Dose: 0.6 mg Dextrose (Dextrose 50% Inj) 0 ml IV STAT PRN; Protocol PRN Reason: Hypoglycemia Protocol Digoxin (Lanoxin) 0.25 mg PO 1400 [facility] Last Admin: 06/08/18 13:26 Dose: 0.25 mg Ergocalciferol (Drisdol 50,000 Intl Units Cap) 1 cap PO Q7D [facility] Fenofibrate (Tricor) 48 mg PO DAILY [facility] Last Admin: 06/09/18 09:24 Dose: 48 mg Fluticasone Propionate (Flonase) 1 actuation NS DAILY [facility] Last Admin: 06/09/18 09:11 Dose: 1 spr Gabapentin (Neurontin) 600 mg PO BID [facility]; Protocol Last Admin: 06/09/18 09:13 Dose: 600 mg Piperacillin Sod/Tazobactam Sod (Zosyn 3.375 In Ns 100ml) 100 mls @ 200 mls/hr IVPB Q6 [facility]; Protocol Last Admin: 06/09/18 12:08 Dose: 200 mls/hr Dextrose (Dextrose 5% In Water 1000 Ml) 1,000 mls @ 0 mls/hr IV .Q0M PRN; Protocol PRN Reason: Hypoglycemia Protocol Sodium Chloride (Sodium Chloride 0.45%) 1,000 mls @ 100 mls/hr IV .Q10H [facility] Insulin Detemir (Levemir) 30 unit SC HS [facility] Insulin Human Lispro (Humalog) 14 units SC AC [facility] Insulin Human Lispro (Humalog Low) 0 units SC ACHS [facility]; Protocol Ipratropium [place] (Atrovent) 0.5 mg IH Q8 PRN PRN Reason: Shortness of Breath Non-Formulary Medication (Chlorzoxazone [Chlorzoxazone]) 500 mg PO TID PRN PRN Reason: Muscle spasm Olopatadine HCl (Patanol 0.1% Opht Soln) 0 ml OU DAILY [facility] Last Admin: 06/09/18 09:11 Dose: 1 dose Ondansetron HCl (Zofran Inj) 4 mg IVP Q6H PRN PRN Reason: Nausea/Vomiting Last Admin: 06/08/18 07:40 Dose: 4 mg Pantoprazole Sodium (Protonix Ec Tab) 40 mg PO 0600 [facility] Last Admin: 06/09/18 07:00 Dose: 40 mg Rivaroxaban (Xarelto) 20 mg PO DAILY [facility]; Protocol Last Admin: 06/09/18 09:14 Dose: 20 mg - Labs Labs: 06/09/18 05:45 06/09/18 13:10 PT 14.6 SECONDS (9.4-12.5) H 06/07/18 15:40 INR 1.27 06/07/18 15:40 APTT 27.2 Seconds (25.1-36.5) 06/07/18 15:40 - Constitutional Appears: Non-toxic, No Acute Distress - Head Exam Head Exam: ATRAUMATIC, NORMOCEPHALIC - Eye Exam Eye Exam: EOMI, Normal appearance - ENT Exam ENT Exam: Mucous Membranes Moist - Neck Exam Neck Exam: Full ROM - Respiratory Exam Respiratory Exam: Clear to Ausculation Bilateral, NORMAL BREATHING PATTERN. absent: Accessory Muscle Use, Chest Wall Tenderness, Decreased Breath Sounds, Prolonged Expiratory Phase, Rales, Rhonchi, Wheezes, Respiratory Distress, Stridor - Cardiovascular Exam Cardiovascular Exam: REGULAR RHYTHM, RRR, +S1, +S2. absent: Bradycardia, Tachycardia, Clicks, Diastolic murmur, Gallop, Irregular Rhythm, JVD, Rubs, +S4, Murmur - GI/Abdominal Exam GI & Abdominal Exam: Soft, Normal Bowel Sounds. absent: Tenderness - Extremities Exam Extremities Exam: Normal Inspection. absent: Calf Tenderness, Pedal Edema - Neurological Exam Neurological Exam: Alert, Awake, Oriented x3 - Psychiatric Exam Psychiatric exam: Normal Affect, Normal Mood - Skin Skin Exam: Dry, Warm Assessment and Plan - Assessment and Plan (Free Text) Assessment: 48 year old female DM2 on insulin, CHF (EF 20%), CAD (no stents), SLE, asthma, and atrial fibrillation on Xarelto who presented with abdominal pain, nausea, and vomiting. Patient was found to be in DKA and is currently being managed in the ICU s/p insulin drip. Patient is also being treated for bilateral pyelonephritis. Plan: 1. DKA -Resolved and s/p Insulin drip -ISS-Low and Accuchecks ACHS -Continue Humalog 14 units SC AC and Levemir 30 units SC HS -Continue Gabapentin -Continue NS at 100mls/hr -Continue Zofran PRN for N/V -Endocrinology consulted, all recommendations appreciated 2. Bacteremia secondary to Bilateral Pyelonephritis -Blood cultures growing gram negative rods -Continue Zosyn -ID consulted, all recommendations appreciated 3. History of CHF -Echo showed mildly impaired LV systolic function with an EF of 40-45% -Continue Coreg and Digoxin -Cardiology consulted, all recommendations appreciated 4. History of Atrial Fibrillation -Continue Xarelto -Cardiology consulted, all recommendations appreciated 5. History of HLD -Continue Tricor and Lipitor 6. History of Asthma -Continue Albuterol -Continue Flonase -Continue Pulmicort and Brovana 7. History of Vitamin D Deficiency -Continue Drisdol GI Prophylaxis: Protonix DVT Prophylaxis: Xarelto/SCD's Patient seen and case discussed with attending, Dr. Lubna Bryant. <Lubna Bryant R - Last Filed: 06/12/18 16:59> Objective - Vital Signs/Intake and Output Vital Signs (last 24 hours): Temp Pulse Resp BP Pulse Ox 98.2 F 82 20 139/88 99 06/12/18 08:35 06/12/18 09:23 06/12/18 08:35 06/12/18 09:23 06/12/18 08:35 - Labs Labs: 06/12/18 06:30 06/12/18 06:30 PT 14.6 SECONDS (9.4-12.5) H 06/07/18 15:40 INR 1.27 06/07/18 15:40 APTT 27.2 Seconds (25.1-36.5) 06/07/18 15:40 Attending/Attestation - Attestation I have personally seen and examined this patient.: Yes I have fully participated in the care of the patient.: Yes I have reviewed all pertinent clinical information, including history, physical exam and plan: Yes Notes (Text): Patient seen and examined by me at 8AM with resident 06/09/18. Case including HPI, physical exam, andassessment and plan discussed with resident. Agree with above with following additions/corrections. 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 Patient states she is feeling a little better. Headache improved. No abdominal pain or nausea since yesterday. Tolerating diet. No vomiting. No chest pain or palpitations. No fevers or chills. No diarrhea or constipation. No dysuria or burning with urination. Physical exam: General: Awake and alert lying in bed in no acute distress HEENT: Normocephalic atraumatic. Pupils equal reactive. No scleral icterus. Oropharynx is pink and moist. No pharyngeal erythema or exudate appreciated. Neck is supple. Cardiovascular: Normal rhythm. Normal S1, S2. No murmurs, rubs or gallops appreciated Pulmonary: Normal respiratory effort. No rhonchi, rales or wheezing appreciated. Gastrointestinal: Soft, nondistended.Nontender. Positive bowel sounds all 4 quadrants, no guarding. Musculoskeletal: Moves all extremities, no calf tenderness. No edema. Central nervous system: AAOx3, CN2-12 grossly intact Dermatologic: Skin warm and dry. 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 1. DKA. Resolved. S/P insulin drip. Dye Blender following, recommendations appreciated. Continue Insulin per endocrinology. Continue gabapentin. HgbA1C 14.9. Continue to monitor accuchecks. 2. Gram negative bacteremia. ?Pyelonephritis. Urine culture with no growth. Blood cultures with gram negative rods. Final culture and sensitivities pending. ID following, recommendations appreciated. Continue with Zosyn. Leukocytosis downtrending. CT abd/pelvis per radiologist showed upper tract inflammatory changes bilaterally left greater than right likely representing pyelonephritis; no evidence of obstructive uropathy. 3. Abdominal pain. Nausea and Vomiting. Resolved. Secondary to DKA and bacteremia, pyelonephritis. CT abd/pelvis as above. Gallbladder ultrasound per radiologist showed nonobstructive right interpolar calculus, mild right renal hydronephrosis, normal gallbladder. 4. Chronic systolic CHF. Cardiology following, recommendations appreciated. Continue digoxin and coreg. 2d echo per aircraft instrument repairer shows the left ventricle is normal size, there is normal left ventricular wall thickness, left ventricle systolic function is mildly impaired, EF is 40-45%, mild global hypokinesis (please see official read for full details). 5. History of left ventricular apical thrombus. Continue Xarelto. Cardiology following, recommendations appreciated 6. Dyslipidemia. Continue fenofibrate. Continue Lipitor. Diet and exercise discussed with patient. 7. History of gout. Continue Colchicine. 8. History of mild intermittent asthma. No acute exacerbation. Continue nebulizer treatments as needed. Case was discussed in detail with the patient regarding current diagnosis and treatment plan. All questions answered.
[2018-06-09] MEDS: Sodium Chloride 0.45% 1,000 ML IV SCH (14:40)
--- NOTE | 2018-06-09 15:35 | PN ---
DATE: 06/09/2018 SUBJECTIVE: The patient's abdominal pain has improved. She tolerated regular diet. PHYSICAL EXAMINATION: VITAL SIGNS: Blood pressure 150/72, heart rate 112, respirations 28, temperature 98.2. HEENT: Head normocephalic. CHEST: Diminished breath sounds over the bases. HEART: S1, S2 regular. EXTREMITIES: 1+ pitting edema. LABORATORY DATA: Hemoglobin and hematocrit 10.2 and 31.7. White count 15.2 and platelet count 133,000. Today's SMA-7 is within normal limit except for glucose of 347. Most recent cardiac catheterization was in February of last year, which revealed non-critical coronary artery disease and severe dilated cardiomyopathy. At that time, the patient was found to have left ventricular thrombus on an echocardiographic study. ASSESSMENT: 1. Cardiomyopathy. 2. History of left ventricular apical thrombus. 3. Gram-negative bacteremia. 4. Bilateral pyelonephritis. RECOMMENDATIONS: Continue current albuterol inhaler every 8 hours. Continue colchicine 0.6 mg daily, Coreg 6.25 mg twice a day, Lanoxin 0.25 mg daily, TriCor 48 mg once a day, Xarelto 20 mg once a day, Zosyn 3.375 g intravenously every 6 hours. Jason Schwartz MD
[2018-06-09] MEDS: Insulin Lispro 1 UNITS/0.01 ML SC SCH (16:16)
[2018-06-09] MEDS: Insulin Lispro (humaLOG) LOW Coverage SC SCH ×2 (16:16→22:10)
[2018-06-09] MEDS: Digoxin 250 mcg (0.25 mg) Tab PO SCH (16:17)
[2018-06-09] MEDS ORDERED: Ibuprofen 100 MG/5 ML (BULK) PO STA (16:44)
--- NOTE | 2018-06-09 18:01 | CP.PCM.PN ---
Subjective - Date & Time of Evaluation Date of Evaluation: 06/09/18 Time of Evaluation: 16:15 - Subjective Subjective: Infectious Disease Follow Up: June 09, 2018 48 yo female with PMHx of DM2, CHF (last EF 20%), CAD, SLE, and pituitary tumor presented to ED last night with worsening abdominal pain, nausea, and vomiting. Patient states that she had not been feeling well the last several days and had not taken her insulin or any of her other medications. She was subsequently found to have DKA and pyelonephritis L > R in ED and was admitted to ICU for management. Currently, she is still having nausea and abdominal pain but it has improved. She also admits to still feeling chills and a headache but denies vision changes, CP, SOB, or cough. Started on IV Vancomycin and Zosyn for antibiotic coverage. The patient is showing gram negative rods on both blood cultures. Still awaiting identification of gram negative rods. Can maintain on Zosyn alone. Patient does not have chills today. Headache overnight that improved with Tylenol. Objective - Vital Signs/Intake and Output Vital Signs (last 24 hours): Temp Pulse Resp BP Pulse Ox 98.2 F 104 H 19 148/91 H 100 06/09/18 04:00 06/09/18 17:00 06/09/18 09:40 06/09/18 17:00 06/09/18 09:40 Intake and Output: 06/09/18 06/09/18 06:59 18:59 Intake Total 864 Output Total 500 Balance 364 - Medications Medications: Current Medications Acetaminophen (Tylenol 325mg Tab) 650 mg PO Q6H PRN PRN Reason: Pain, moderate (4-7) Last Admin: 06/09/18 02:22 Dose: 650 mg Albuterol Sulfate (Albuterol 0.083% Inhal Ana (2.5 Mg/3 Ml) Ud) 2.5 mg IH Q8 PRN PRN Reason: Shortness of Breath Arformoterol Tartrate (Brovana) 15 mcg IH [id number] [facility] Last Admin: 06/09/18 07:22 Dose: 15 mcg Atorvastatin Calcium (Lipitor) 20 mg PO HS [facility] Last Admin: 06/08/18 21:33 Dose: 20 mg Budesonide (Pulmicort Respules) 0.5 mg IH BID [facility] Last Admin: 06/09/18 13:39 Dose: Not Given Carvedilol (Coreg) 6.25 mg PO BID [facility] Last Admin: 06/09/18 17:00 Dose: 6.25 mg Colchicine (Colocrys) 0.6 mg PO DAILY [facility] Last Admin: 06/09/18 09:24 Dose: 0.6 mg Dextrose (Dextrose 50% Inj) 0 ml IV STAT PRN; Protocol PRN Reason: Hypoglycemia Protocol Digoxin (Lanoxin) 0.25 mg PO 1400 [facility] Last Admin: 06/09/18 16:17 Dose: 0.25 mg Ergocalciferol (Drisdol 50,000 Intl Units Cap) 1 cap PO Q7D [facility] Fenofibrate (Tricor) 48 mg PO DAILY [facility] Last Admin: 06/09/18 09:24 Dose: 48 mg Fluticasone Propionate (Flonase) 1 actuation NS DAILY [facility] Last Admin: 06/09/18 09:11 Dose: 1 spr Gabapentin (Neurontin) 600 mg PO BID [facility]; Protocol Last Admin: 06/09/18 17:00 Dose: 600 mg Piperacillin Sod/Tazobactam Sod (Zosyn 3.375 In Ns 100ml) 100 mls @ 200 mls/hr IVPB Q6 [facility]; Protocol Last Admin: 06/09/18 17:02 Dose: 200 mls/hr Dextrose (Dextrose 5% In Water 1000 Ml) 1,000 mls @ 0 mls/hr IV .Q0M PRN; Protocol PRN Reason: Hypoglycemia Protocol Sodium Chloride (Sodium Chloride 0.45%) 1,000 mls @ 100 mls/hr IV .Q10H [facility] Last Admin: 06/09/18 14:40 Dose: 100 mls/hr Insulin Detemir (Levemir) 30 unit SC HS [facility] Insulin Human Lispro (Humalog) 14 units SC AC [facility] Last Admin: 06/09/18 16:16 Dose: 14 u Insulin Human Lispro (Humalog Low) 0 units SC ACHS [facility]; Protocol Last Admin: 06/09/18 16:16 Dose: 3 u Ipratropium [place] (Atrovent) 0.5 mg IH Q8 PRN PRN Reason: Shortness of Breath Non-Formulary Medication (Chlorzoxazone [Chlorzoxazone]) 500 mg PO TID PRN PRN Reason: Muscle spasm Olopatadine HCl (Patanol 0.1% Opht Soln) 0 ml OU DAILY [facility] Last Admin: 06/09/18 09:11 Dose: 1 dose Ondansetron HCl (Zofran Inj) 4 mg IVP Q6H PRN PRN Reason: Nausea/Vomiting Last Admin: 06/08/18 07:40 Dose: 4 mg Pantoprazole Sodium (Protonix Ec Tab) 40 mg PO 0600 [facility] Last Admin: 06/09/18 07:00 Dose: 40 mg Rivaroxaban (Xarelto) 20 mg PO DAILY [facility]; Protocol Last Admin: 06/09/18 09:14 Dose: 20 mg - Labs Labs: 06/09/18 05:45 06/09/18 13:10 PT 14.6 SECONDS (9.4-12.5) H 06/07/18 15:40 INR 1.27 06/07/18 15:40 APTT 27.2 Seconds (25.1-36.5) 06/07/18 15:40 - Constitutional Appears: Non-toxic, No Acute Distress - Head Exam Head Exam: ATRAUMATIC, NORMOCEPHALIC - Eye Exam Eye Exam: EOMI, PERRL Pupil Exam: NORMAL ACCOMODATION, PERRL - ENT Exam ENT Exam: Mucous Membranes Moist, Normal External Ear Exam, TM's Normal Bilaterally - Neck Exam Neck Exam: Full ROM, Normal Inspection - Respiratory Exam Respiratory Exam: Clear to Ausculation Bilateral, NORMAL BREATHING PATTERN. absent: Rales, Rhonchi, Wheezes - Cardiovascular Exam Cardiovascular Exam: Tachycardia, RRR, +S1, +S2 - GI/Abdominal Exam GI & Abdominal Exam: Soft, Normal Bowel Sounds. absent: Distended, Tenderness - Extremities Exam Extremities Exam: Full ROM, Normal Inspection. absent: Joint Swelling, Pedal Edema - Neurological Exam Neurological Exam: Alert, Awake, CN II-XII Intact, Oriented x3 - Psychiatric Exam Psychiatric exam: Normal Affect, Normal Mood - Skin Skin Exam: Intact, Normal Color Assessment and Plan - Assessment and Plan (Free Text) Assessment: 48 yo female with UTI, bacteremia, septicemia, DM, and DKA on presentation. Gram negative rods on all blood cultures drawn at time of admission. Full identification and specificities pending. Continue on IV Zosyn for antibiotic coverage. Supportive care. May need stronger antibiotic coverage depending on results of the blood cultures. Appears to be slowly improving compared to admission. The patient remains tachycardic at this time. Gram negative rods on blood cultures. Supportive care. Maintain patient on IV Zosyn for now until identification and sensitivities return. Montior renal function as currently the patient's renal function is borderline. Thank you for allowing me to participate in the care of the patient, we will follow with you.
[2018-06-09] MEDS ORDERED: Insulin Detemir 100 units/ml Vial (Levemir) SC SCH (22:00)
[2018-06-10] MEDS: Sodium Chloride 0.45% 1,000 ML IV SCH ×3 (01:38→19:00)
[2018-06-10] MEDS: Piperacillin/Tazobact 3.375 gm 100 ML IVPB SCH ×2 (01:40→06:13)
[2018-06-10] MEDS: Pantoprazole 40 mg EC Tab PO SCH (06:12)
[2018-06-10 07:22] LABS: BASO # 0.02 K/mm3 (0.0-2.0); BASO % 0.2 % (0.0-3.0); EOS # 0.1 (0.0-0.7); EOS % 0.8 % (1.5-5.0); GRAN # 7.64 (1.4-6.5); GRAN % 63.5 % (50.0-68.0); HEMOGLOBIN 9.6 g/dL (12.0-16.0); LYMPH # 3.3 (1.2-3.4); LYMPH % 27.2 % (22.0-35.0); MEAN CELL VOLUME 77.1 fl (80.0-105.0); MEAN CORPUSCULAR HGB CONC 32.4 g/dl (31.0-37.0); MEAN PLATELET VOLUME 10.8 fl (7.0-11.0); MONO % 8.3 % (1.0-6.0); RBC 3.84 10^6/uL (3.5-6.1); RED CELL DISTRIBUTION WIDTH 15.1 % (11.5-14.5)
[2018-06-10 07:31] LABS: ALB/GLOB RATIO 0.8 (1.1-1.8); ALBUMIN 2.9 g/dL (3.0-4.8); ALT/SGPT 18 U/L (7-56); AST/SGOT 33 U/L (14-36); BLOOD UREA NITROGEN 22 mg/dL (7-21); CALCIUM 8.3 mg/dL (8.4-10.5); GFR NON-AFRICAN AMERICAN 53
[2018-06-10] MEDS: Insulin Lispro (humaLOG) LOW Coverage SC SCH ×5 (08:00→21:57)
[2018-06-10] MEDS: Arformoterol 15 mcg/2 ml Inh Sol IH SCH ×2 (08:40→19:25)
[2018-06-10] MEDS: Budesonide 0.5 mg/2 ml Inhal Susp UD IH SCH ×2 (09:03→19:26)
[2018-06-10] MEDS: Insulin Lispro 1 UNITS/0.01 ML SC SCH ×3 (09:18→18:14)
[2018-06-10] MEDS: Fluticasone Nasal 50 mcg/Spray NS SCH (09:21)
[2018-06-10] MEDS: Olopatadine 0.1% Opht Sol OU SCH (09:21)
[2018-06-10 09:38] VITALS: RESP 20
[2018-06-10] MEDS: cefTRIAXone 1 gm 1 GM/100 ML BAG IVPB SCH (12:13)
--- NOTE | 2018-06-10 12:14 | PN ---
DATE: 06/10/2018 ENDOCRINOLOGY FOLLOWUP NOTE LOCATION: Room 370. SUBJECTIVE: This is a 48-year-old female with recent uncontrolled type 2 insulin-requiring diabetes and is now being followed closely for metabolic management. Her glycemic levels are fluctuating, but improved and her oral intake remains quite variable at this time as noted. She received vigorous IV hydration and intensive insulin therapy with an insulin drip infusion in the ICU as given. Her glucose values overnight have ranged from 234-335 mg/dL. Her latest chemistry showed a BUN of 22, sodium 133, potassium 3.5, chloride 101, CO2 24, glucose 294 and creatinine 1.1. So at this time, we will modify once again. The chemistries today showed a BUN of 22, sodium 133, potassium 3.5, chloride 101, CO2 24, glucose 294 and creatinine 1.1. ASSESSMENT: This is a 48-year-old female with uncontrolled and decompensated type 2 insulin-requiring diabetes presenting here with hyperosmolar hyperglycemic state and dehydration with mild ketosis and is now being followed closely for metabolic management. PLAN OF MANAGEMENT: We will modify once again her basal and bolus insulin regimen to optimize metabolic control. We will increase the Levemir to 40 units subcu at bedtime daily to start tonight. We will continue the Humalog given as 14 units subcu t.i.d. before meals as ordered. We will also continue the low-dose correction scale using Humalog insulin as given. We will follow and advise accordingly. Aisha Purvis MD
[2018-06-10] MEDS: Digoxin 250 mcg (0.25 mg) Tab PO SCH (13:32)
--- NOTE | 2018-06-10 13:52 | CP.PCM.PN ---
Subjective - Date & Time of Evaluation Date of Evaluation: 06/10/18 Time of Evaluation: 12:30 - Subjective Subjective: Infectious Disease Follow Up: June 10, 2018 48 yo female with PMHx of DM2, CHF (last EF 20%), CAD, SLE, and pituitary tumor presented to ED last night with worsening abdominal pain, nausea, and vomiting. Patient states that she had not been feeling well the last several days and had not taken her insulin or any of her other medications. She was subsequently found to have DKA and pyelonephritis L > R in ED and was admitted to ICU for management. Currently, she is still having nausea and abdominal pain but it has improved. She also admits to still feeling chills and a headache but denies vision changes, CP, SOB, or cough. Started on IV Vancomycin and Zosyn for antibiotic coverage. The patient is showing gram negative rods on both blood cultures. Identification of E. coli. Can deescalate to Rocephin alone. Patient does not have chills today. Transferred to regular medical floor. Objective - Vital Signs/Intake and Output Vital Signs (last 24 hours): Temp Pulse Resp BP Pulse Ox 97.6 F 80 20 113/60 97 06/10/18 06:00 06/10/18 06:00 06/10/18 06:00 06/10/18 06:00 06/10/18 06:00 Intake and Output: 06/10/18 06/10/18 06:59 18:59 Intake Total 570 Balance 570 - Medications Medications: Current Medications Acetaminophen (Tylenol 325mg Tab) 650 mg PO Q6H PRN PRN Reason: Pain, moderate (4-7) Last Admin: 06/09/18 22:28 Dose: 650 mg Albuterol Sulfate (Albuterol 0.083% Inhal Ana (2.5 Mg/3 Ml) Ud) 2.5 mg IH Q8 PRN PRN Reason: Shortness of Breath Arformoterol Tartrate (Brovana) 15 mcg IH [id number] [facility] Last Admin: 06/10/18 08:40 Dose: 15 mcg Atorvastatin Calcium (Lipitor) 20 mg PO HS [facility] Last Admin: 06/09/18 22:10 Dose: 20 mg Budesonide (Pulmicort Respules) 0.5 mg IH BID [facility] Last Admin: 09/30/18 09:03 Dose: 0.5 mg Carvedilol (Coreg) 6.25 mg PO BID [facility] Last Admin: 06/10/18 09:17 Dose: 6.25 mg Colchicine (Colocrys) 0.6 mg PO DAILY [facility] Last Admin: 06/10/18 09:17 Dose: 0.6 mg Dextrose (Dextrose 50% Inj) 0 ml IV STAT PRN; Protocol PRN Reason: Hypoglycemia Protocol Digoxin (Lanoxin) 0.25 mg PO 1400 [facility] Last Admin: 06/10/18 13:32 Dose: 0.25 mg Ergocalciferol (Drisdol 50,000 Intl Units Cap) 1 cap PO Q7D [facility] Fenofibrate (Tricor) 48 mg PO DAILY [facility] Last Admin: 06/10/18 09:20 Dose: 48 mg Fluticasone Propionate (Flonase) 1 actuation NS DAILY [facility] Last Admin: 06/10/18 09:21 Dose: 1 spr Gabapentin (Neurontin) 600 mg PO BID [facility]; Protocol Last Admin: 06/10/18 09:19 Dose: 600 mg Dextrose (Dextrose 5% In Water 1000 Ml) 1,000 mls @ 0 mls/hr IV .Q0M PRN; Protocol PRN Reason: Hypoglycemia Protocol Sodium Chloride (Sodium Chloride 0.45%) 1,000 mls @ 100 mls/hr IV .Q10H [facility] Last Admin: 06/10/18 12:13 Dose: 100 mls/hr Ceftriaxone Sodium (Rocephin 1 Gram Ivpb) 1 gm in 100 mls @ 100 mls/hr IVPB DAILY [facility]; Protocol Last Admin: 06/10/18 12:13 Dose: 100 mls/hr Insulin Detemir (Levemir) 40 unit SC HS [facility] Insulin Human Lispro (Humalog) 14 units SC AC [facility] Last Admin: 06/10/18 12:11 Dose: 14 u Insulin Human Lispro (Humalog Low) 0 units SC ACHS [facility]; Protocol Last Admin: 06/10/18 12:12 Dose: Not Given Ipratropium [place] (Atrovent) 0.5 mg IH Q8 PRN PRN Reason: Shortness of Breath Home Med - Chlorzoxazone [ Chlorzoxazone] 500 Mg 500 mg PO TID PRN PRN Reason: Muscle spasm Olopatadine HCl (Patanol 0.1% Opht Soln) 0 ml OU DAILY [facility] Last Admin: 06/10/18 09:21 Dose: 1 dose Ondansetron HCl (Zofran Inj) 4 mg IVP Q6H PRN PRN Reason: Nausea/Vomiting Last Admin: 06/08/18 07:40 Dose: 4 mg Pantoprazole Sodium (Protonix Ec Tab) 40 mg PO 0600 [facility] Last Admin: 06/10/18 06:12 Dose: 40 mg Rivaroxaban (Xarelto) 20 mg PO DAILY [facility]; Protocol Last Admin: 06/10/18 09:19 Dose: 20 mg - Labs Labs: 06/10/18 06:30 06/10/18 06:30 PT 14.6 SECONDS (9.4-12.5) H 06/07/18 15:40 INR 1.27 06/07/18 15:40 APTT 27.2 Seconds (25.1-36.5) 06/07/18 15:40 - Constitutional Appears: Non-toxic, No Acute Distress - Head Exam Head Exam: ATRAUMATIC, NORMOCEPHALIC - Eye Exam Eye Exam: EOMI, PERRL Pupil Exam: NORMAL ACCOMODATION, PERRL - ENT Exam ENT Exam: Mucous Membranes Moist, Normal External Ear Exam, TM's Normal Bilaterally - Neck Exam Neck Exam: Full ROM, Normal Inspection - Respiratory Exam Respiratory Exam: Clear to Ausculation Bilateral, NORMAL BREATHING PATTERN. absent: Rales, Rhonchi, Wheezes - Cardiovascular Exam Cardiovascular Exam: REGULAR RHYTHM, RRR, +S1, +S2 - GI/Abdominal Exam GI & Abdominal Exam: Soft, Normal Bowel Sounds. absent: Distended, Tenderness - Extremities Exam Extremities Exam: Full ROM, Normal Inspection. absent: Joint Swelling, Pedal Edema - Neurological Exam Neurological Exam: Alert, Awake, CN II-XII Intact, Oriented x3 - Psychiatric Exam Psychiatric exam: Normal Affect, Normal Mood - Skin Skin Exam: Intact, Normal Color Assessment and Plan - Assessment and Plan (Free Text) Assessment: 48 yo female with UTI, bacteremia, septicemia, DM, and DKA on presentation. Gram negative rods on all blood cultures drawn at time of admission. Full identification and specificities pending. Continue on IV Zosyn for antibiotic coverage. Supportive care. May need stronger antibiotic coverage depending on results of the blood cultures. Appears to be slowly improving compared to admission. The patient remains tachycardic at this time. Gram negative rods on blood cultures identified as E. coli sensitive to [place]. Supportive care. Nicolle lauren patient on IV Rocephin. 14 days of treatment. Montior renal function as currently the patient's renal function is borderline. Thank you for allowing me to participate in the care of the patient, we will follow with you.
--- NOTE | 2018-06-10 15:44 | CP.PCM.PN ---
<Castro Melvin - Last Filed: 06/10/18 15:38> Subjective - Date & Time of Evaluation Date of Evaluation: 06/10/18 Time of Evaluation: 15:38 - Subjective Subjective: Internal Medicine Progress Note (Hospitalist Service): Jhony PGY2 Patient seen and assessed at bedside. No overnight events noted by patient or nursing staff. She denies any complaints at this time including fevers, chills, headache, chest pain, SOB, abdominal pain, N/V/D/C, changes in urine output, or any skin changes. Objective - Vital Signs/Intake and Output Vital Signs (last 24 hours): Temp Pulse Resp BP Pulse Ox 97.6 F 80 20 113/60 97 06/10/18 06:00 06/10/18 06:00 06/10/18 06:00 06/10/18 06:00 06/10/18 06:00 Intake and Output: 06/10/18 06/10/18 06:59 18:59 Intake Total 570 Balance 570 - Medications Medications: Current Medications Acetaminophen (Tylenol 325mg Tab) 650 mg PO Q6H PRN PRN Reason: Pain, moderate (4-7) Last Admin: 06/09/18 22:28 Dose: 650 mg Albuterol Sulfate (Albuterol 0.083% Inhal Ana (2.5 Mg/3 Ml) Ud) 2.5 mg IH Q8 PRN PRN Reason: Shortness of Breath Arformoterol Tartrate (Brovana) 15 mcg IH [id number] [facility] Last Admin: 06/10/18 08:40 Dose: 15 mcg Atorvastatin Calcium (Lipitor) 20 mg PO HS [facility] Last Admin: 06/09/18 22:10 Dose: 20 mg Budesonide (Pulmicort Respules) 0.5 mg IH BID [facility] Last Admin: 06/10/18 09:03 Dose: 0.5 mg Carvedilol (Coreg) 6.25 mg PO BID [facility] Last Admin: 06/10/18 09:17 Dose: 6.25 mg Colchicine (Colocrys) 0.6 mg PO DAILY [facility] Last Admin: 06/10/18 09:17 Dose: 0.6 mg Dextrose (Dextrose 50% Inj) 0 ml IV STAT PRN; Protocol PRN Reason: Hypoglycemia Protocol Digoxin (Lanoxin) 0.25 mg PO 1400 [facility] Last Admin: 06/10/18 13:32 Dose: 0.25 mg Ergocalciferol (Drisdol 50,000 Intl Units Cap) 1 cap PO Q7D [facility] Fenofibrate (Tricor) 48 mg PO DAILY [facility] Last Admin: 06/10/18 09:20 Dose: 48 mg Fluticasone Propionate (Flonase) 1 actuation NS DAILY [facility] Last Admin: 06/10/18 09:21 Dose: 1 spr Gabapentin (Neurontin) 600 mg PO BID [facility]; Protocol Last Admin: 06/10/18 09:19 Dose: 600 mg Dextrose (Dextrose 5% In Water 1000 Ml) 1,000 mls @ 0 mls/hr IV .Q0M PRN; Protocol PRN Reason: Hypoglycemia Protocol Sodium Chloride (Sodium Chloride 0.45%) 1,000 mls @ 100 mls/hr IV .Q10H [facility] Last Admin: 06/10/18 12:13 Dose: 100 mls/hr Ceftriaxone Sodium (Rocephin 1 Gram Ivpb) 1 gm in 100 mls @ 100 mls/hr IVPB DAILY [facility]; Protocol Last Admin: 06/10/18 12:13 Dose: 100 mls/hr Insulin Detemir (Levemir) 40 unit SC HS [facility] Insulin Human Lispro (Humalog) 14 units SC AC [facility] Last Admin: 06/10/18 12:11 Dose: 14 u Insulin Human Lispro (Humalog Low) 0 units SC ACHS [facility]; Protocol Last Admin: 06/10/18 12:12 Dose: Not Given Ipratropium [place] (Atrovent) 0.5 mg IH Q8 PRN PRN Reason: Shortness of Breath Losartan Potassium (Cozaar) 12.5 mg PO DAILY [facility] Home Med - Chlorzoxazone [ Chlorzoxazone] 500 Mg 500 mg PO TID PRN PRN Reason: Muscle spasm Olopatadine HCl (Patanol 0.1% Opht Soln) 0 ml OU DAILY [facility] Last Admin: 06/10/18 09:21 Dose: 1 dose Ondansetron HCl (Zofran Inj) 4 mg IVP Q6H PRN PRN Reason: Nausea/Vomiting Last Admin: 06/08/18 07:40 Dose: 4 mg Pantoprazole Sodium (Protonix Ec Tab) 40 mg PO 0600 [facility] Last Admin: 06/10/18 06:12 Dose: 40 mg Rivaroxaban (Xarelto) 20 mg PO DAILY [facility]; Protocol Last Admin: 06/10/18 09:19 Dose: 20 mg - Labs Labs: 06/10/18 06:30 06/10/18 06:30 PT 14.6 SECONDS (9.4-12.5) H 06/07/18 15:40 INR 1.27 06/07/18 15:40 APTT 27.2 Seconds (25.1-36.5) 06/07/18 15:40 - Constitutional Appears: Non-toxic, No Acute Distress - Head Exam Head Exam: ATRAUMATIC, NORMOCEPHALIC - Eye Exam Eye Exam: EOMI, Normal appearance - ENT Exam ENT Exam: Mucous Membranes Moist - Neck Exam Neck Exam: Full ROM - Respiratory Exam Respiratory Exam: Clear to Ausculation Bilateral, NORMAL BREATHING PATTERN. absent: Rales, Rhonchi, Wheezes - Cardiovascular Exam Cardiovascular Exam: REGULAR RHYTHM, RRR, +S1, +S2 - GI/Abdominal Exam GI & Abdominal Exam: Soft, Normal Bowel Sounds. absent: Tenderness - Extremities Exam Extremities Exam: absent: Calf Tenderness - Neurological Exam Neurological Exam: Alert, Awake, Oriented x3 - Psychiatric Exam Psychiatric exam: Normal Affect, Normal Mood - Skin Skin Exam: Dry, Intact, Normal Color, Warm Assessment and Plan - Assessment and Plan (Free Text) Assessment: 48 year old female DM2 on insulin, CHF (EF 20%), CAD (no stents), SLE, asthma, and atrial fibrillation on Xarelto who presented with abdominal pain, nausea, and vomiting. Patient was found to be in DKA, which has resolved, and is currently being treated for bilateral pyelonephritis. Plan: 1. DKA -Resolved and s/p Insulin drip -ISS-Low and Accuchecks ACHS -Continue Humalog 14 units SC AC -Increased Levemir to 40 units SC HS -Continue Gabapentin -Continue NS at 100mls/hr -Continue Zofran PRN for N/V -Endocrinology consulted, all recommendations appreciated 2. Bacteremia secondary to Bilateral Pyelonephritis -Blood cultures growing E. Coli; See sensitivity/SYLVIA report -Discontinue Zosyn -Started on Rocephin 1gm IVPB Q24 -ID consulted, all recommendations appreciated 3. History of CHF -Echo showed mildly impaired LV systolic function with an EF of 40-45% -Continue Coreg and Digoxin -Cardiology consulted, all recommendations appreciated 4. History of Atrial Fibrillation -Continue Xarelto -Cardiology consulted, all recommendations appreciated 5. History of HLD -Continue Tricor and Lipitor 6. History of Asthma -Continue Pulmicort and Brovana -Continue Albuterol -Continue Flonase 7. History of Vitamin D Deficiency -Continue Drisdol Q7D GI Prophylaxis: Protonix DVT Prophylaxis: Xarelto/SCD's Patient seen and case discussed with attending, Dr. Lubna Bryant. <Lubna Bryant R - Last Filed: 06/12/18 17:06> Objective - Vital Signs/Intake and Output Vital Signs (last 24 hours): Temp Pulse Resp BP Pulse Ox 98.2 F 82 20 139/88 99 06/12/18 08:35 06/12/18 09:23 06/12/18 08:35 06/12/18 09:23 06/12/18 08:35 - Labs Labs: 06/12/18 06:30 06/12/18 06:30 PT 14.6 SECONDS (9.4-12.5) H 06/07/18 15:40 INR 1.27 06/07/18 15:40 APTT 27.2 Seconds (25.1-36.5) 06/07/18 15:40 Attending/Attestation - Attestation I have personally seen and examined this patient.: Yes I have fully participated in the care of the patient.: Yes I have reviewed all pertinent clinical information, including history, physical exam and plan: Yes Notes (Text): Patient seen and examined by me at 10:05AM with resident 06/10/18. Case including HPI, physical exam, andassessment and plan discussed with resident. Agree with above with following additions/corrections. 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 Patient states she is feeling much better. Headache resolving. Patient ambulating with no difficulty. Patient denies any abdominal pain, nausea, or vomiting. Tolerating diet well. She denies any chest pain or palpitations. No shortness of breath. No fevers or chills. No diarrhea or constipation. No dysuria or burning with urination. Physical exam: General: Awake and alert sitting up in chair in no acute distress HEENT: Normocephalic atraumatic. Pupils equal reactive. No scleral icterus. Oropharynx is pink and moist. No pharyngeal erythema or exudate appreciated. Neck is supple. Cardiovascular: Normal rhythm. Normal S1, S2. No murmurs, rubs or gallops appre ciated Pulmonary: Normal respiratory effort. No rhonchi, rales or wheezing appreciated. Gastrointestinal: Soft, nondistended.Nontender. Positive bowel sounds all 4 quadrants, no guarding. Musculoskeletal: Moves all extremities, no calf tenderness. No edema. Central nervous system: AAOx3, CN2-12 grossly intact Dermatologic: Skin warm and dry. 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 1. DKA. Resolved. S/P insulin drip. Press [employer] following, recommendations appreciated. Continue Insulin per endocrinology. Blood sugars improving. Continue gabapentin. HgbA1C 14.9. Continue to monitor accuchecks. 2. Gram negative bacteremia secondary to E.coli. ?Pyelonephritis. Urine culture with no growth. Blood cultures positive to Ecoli. Discussed with Dr. Luther MELENDREZ. Zosyn stopped and patient started on Rocephin. ID following, recommendations appreciated. Leukocytosis downtrending. CT abd/pelvis per radiologist showed upper tract inflammatory changes bilaterally left greater than right likely representing pyelonephritis; no evidence of obstructive uropathy. 3. Abdominal pain. Nausea and Vomiting. Resolved. Secondary to DKA and bacteremia, pyelonephritis. CT abd/pelvis as above. Gallbladder ultrasound per radiologist showed nonobstructive right interpolar calculus, mild right renal hydronephrosis, normal gallbladder. 4. Chronic systolic CHF. Cardiology following, recommendations appreciated. Continue digoxin and coreg. 2d echo per front window cashier shows the left ventricle is normal size, there is normal left ventricular wall thickness, left ventricle systolic function is mildly impaired, EF is 40-45%, mild global hypokinesis (please see official read for full details). 5. History of left ventricular apical thrombus. Continue Xarelto. Cardiology following, recommendations appreciated 6. Dyslipidemia. Continue fenofibrate. Continue Lipitor. Diet and exercise discussed with patient. 7. History of gout. Continue Colchicine. 8. History of mild intermittent asthma. No acute exacerbation. Continue nebulizer treatments as needed. Case was discussed in detail with the patient regarding current diagnosis and treatment plan. All questions answered.
--- NOTE | 2018-06-10 19:03 | PN ---
DATE: 06/10/2018 SUBJECTIVE: The patient denies any chest pain, shortness of breath or abdominal pain. PHYSICAL EXAMINATION: VITAL SIGNS: Blood pressure 115/60, heart rate 80, temperature 97.6, respirations 20. HEENT: Normocephalic. CHEST: Minimal basal rhonchi. HEART: S1, S2 regular. EXTREMITIES: 1+ pitting edema. LABORATORY DATA: Hemoglobin and hematocrit 9.6 and 29.6. White count 12 and platelet count 160,000. Today's SMA-7: Sodium 133, potassium 3.5, chloride 101, CO2 of 24, glucose 294, BUN 22, creatinine 1.1. ASSESSMENT: 1. Cardiomyopathy. 2. History of left ventricular apical thrombus. 3. Gram-negative bacteremia. 4. Bilateral pyelonephritis. RECOMMENDATIONS: Continue Coreg 6.25 mg twice a day, digoxin 0.25 mg daily, Lipitor 20 mg once a day, Xarelto 20 mg daily, TriCor 48 mg daily, start Cozaar 12.5 mg orally daily, and obtain serum digoxin level. Jason Schwartz MD
[2018-06-10] MEDS ORDERED: Insulin Detemir 100 units/ml Vial (Levemir) SC SCH (22:00)
[2018-06-11] MEDS: Sodium Chloride 0.45% 1,000 ML IV SCH (05:00)
[2018-06-11] MEDS: Pantoprazole 40 mg EC Tab PO SCH (05:58)
[2018-06-11 07:46] LABS: BASO # 0.09 K/mm3 (0.0-2.0); BASO % 0.6 % (0.0-3.0); EOS # 0.1 (0.0-0.7); EOS % 0.7 % (1.5-5.0); GRAN # 8.18 (1.4-6.5); GRAN % 56.4 % (50.0-68.0); HEMOGLOBIN 10.1 g/dL (12.0-16.0); LYMPH # 3.9 (1.2-3.4); LYMPH % 27.1 % (22.0-35.0); MEAN CELL VOLUME 76.6 fl (80.0-105.0); MEAN CORPUSCULAR HEMOGLOBIN 25.4 pg (25.0-35.0); MEAN CORPUSCULAR HGB CONC 33.1 g/dl (31.0-37.0); MONO # 2.2 (0.1-0.6); MONO % 15.2 % (1.0-6.0); RBC 3.98 10^6/uL (3.5-6.1); WHITE BLOOD COUNT 14.5 10^3/ul (4.5-11.0)
[2018-06-11 08:17] LABS: ALB/GLOB RATIO 0.8 (1.1-1.8); ALBUMIN 2.9 g/dL (3.0-4.8); ALT/SGPT 25 U/L (7-56); AST/SGOT 37 U/L (14-36); BLOOD UREA NITROGEN 12 mg/dL (7-21); CALCIUM 8.4 mg/dL (8.4-10.5); GFR NON-AFRICAN AMERICAN > 60
[2018-06-11] MEDS: Arformoterol 15 mcg/2 ml Inh Sol IH SCH ×2 (08:37→19:57)
[2018-06-11] MEDS: Budesonide 0.5 mg/2 ml Inhal Susp UD IH SCH ×2 (08:38→19:58)
[2018-06-11] MEDS ORDERED: Potassium Chloride 20 mEq ER Tab PO ONE (09:03)
--- NOTE | 2018-06-11 09:13 | PN ---
DATE: 06/08/2018 ENDOCRINOLOGY FOLLOWUP NOTE LOCATION: In CCU 129, room 7. SUBJECTIVE: This is a 48-year-old female with recent uncontrolled type 2 insulin-requiring diabetes, presenting here with marked hyperglycemic accelerations with hyperosmolar hyperglycemic state and ketosis and is now being followed closely for metabolic management. She received vigorous IV hydration with intensive insulin therapy with an insulin drip infusion as given. LABORATORY DATA: Her latest chemistries today showed a BUN of 13. Sodium 135, potassium 4.2, chloride 103, CO2 of 25. Glucose 537. Creatinine 1.1. Her glucose levels have ranged from 355 to 487 mg/dL. She is actually already out of metabolic acidosis with a CO2 of 25 and anion gap of 12. So would highly recommend switch over to a more physiologic basal and bolus insulin combination to optimize metabolic control. As her oral intake improves, we will switch her over to basal insulin given as Levemir 20 units at bedtime daily to start tonight. We will also recommend Humalog given as 8 units t.i.d. before meals as ordered to start tomorrow morning. We will modify the coverage scale to obviate hypoglycemia and detailed orders will be given if the aforementioned recommendations are undertaken. We will obtain serial chemistries and supplement accordingly as needed. We will also continue the vigorous IV hydration and obtain serial chemistries and supplement accordingly as needed. We will follow. Aisha Purvis MD
[2018-06-11] MEDS ORDERED: Insulin Detemir 100 units/ml Vial (Levemir) SC SCH (11:12)
[2018-06-11] MEDS: Insulin Lispro (humaLOG) LOW Coverage SC SCH ×4 (11:52→21:22)
[2018-06-11] MEDS: Insulin Lispro 1 UNITS/0.01 ML SC SCH ×3 (11:52→18:12)
[2018-06-11] MEDS: cefTRIAXone 1 gm 1 GM/100 ML BAG IVPB SCH (11:55)
[2018-06-11] MEDS: Digoxin 250 mcg (0.25 mg) Tab PO SCH (14:07)
[2018-06-11 14:09] VITALS: PULSE 88
--- NOTE | 2018-06-11 15:31 | PN ---
DATE: 06/11/2018 ENDO FOLLOWUP NOTE LOCATION: In room 370. SUBJECTIVE: This is a 48-year-old female with recent uncontrolled type 2 insulin-requiring diabetes, presenting here with hyperosmolar hyperglycemic state and ketosis, which has improved clinically and metabolically with the initiation of vigorous IV hydration and intensive insulin therapy as given. Her glycemic levels overnight have ranged from 258-266 mg/dL. Her latest chemistry showed a BUN of 12, sodium 136, potassium 3.4, chloride 106, CO2 of 25, glucose 251 and creatinine 0.8. So at this time, we will continue the present basal and bolus insulin regimen as given in combination with a higher dose of Levemir given as 45 units subcu at bedtime daily as given. We will continue the Humalog given as 14 units subcu t.i.d. before meals as ordered. We will obtain serial chemistries and supplement accordingly as needed. We will follow. Aisha Purvis MD
--- NOTE | 2018-06-11 17:49 | CP.PCM.PN ---
<Baylee Aguilar - Last Filed: 06/11/18 17:44> Subjective - Date & Time of Evaluation Date of Evaluation: 06/11/18 Time of Evaluation: 07:45 - Subjective Subjective: PGY-1 Baylee Aguilar D.O. Medicine progress not for Dr. Haines's service: Patient was seen and examined this morning. No over night events reported. Kanika ent's glucose is continuing to improve with a new insulin regimen of basal and meal time. Patient's nausea and vomiting have resolved. She is tolerating PO intake. She denies fevers, chills, abdominal pain. She has intermittent R flank pain. Objective - Vital Signs/Intake and Output Vital Signs (last 24 hours): Temp Pulse Resp BP Pulse Ox 98.2 F 85 20 124/72 99 06/11/18 06:00 06/11/18 06:00 06/11/18 06:00 06/11/18 06:00 06/11/18 06:00 Intake and Output: 06/11/18 06/11/18 06:59 18:59 Intake Total 1200 Balance 1200 - Medications Medications: Current Medications Acetaminophen (Tylenol 325mg Tab) 650 mg PO Q6H PRN PRN Reason: Pain, moderate (4-7) Last Admin: 06/11/18 02:24 Dose: 650 mg Albuterol Sulfate (Albuterol 0.083% Inhal Naa (2.5 Mg/3 Ml) Ud) 2.5 mg IH Q8 PRN PRN Reason: Shortness of Breath Arformoterol Tartrate (Brovana) 15 mcg IH [id number] [facility] Last Admin: 06/11/18 08:37 Dose: 15 mcg Atorvastatin Calcium (Lipitor) 20 mg PO HS [facility] Last Admin: 06/10/18 22:03 Dose: 20 mg Budesonide (Pulmicort Respules) 0.5 mg IH BID [facility] Last Admin: 06/11/18 08:38 Dose: 0.5 mg Carvedilol (Coreg) 6.25 mg PO BID [facility] Last Admin: 06/11/18 11:51 Dose: 6.25 mg Colchicine (Colocrys) 0.6 mg PO DAILY [facility] Last Admin: 06/11/18 11:51 Dose: 0.6 mg Dextrose (Dextrose 50% Inj) 0 ml IV STAT PRN; Protocol PRN Reason: Hypoglycemia Protocol Digoxin (Lanoxin) 0.25 mg PO 1400 [facility] Last Admin: 06/11/18 14:07 Dose: 0.25 mg Ergocalciferol (Drisdol 50,000 Intl Units Cap) 1 cap PO Q7D [facility] Fenofibrate (Tricor) 48 mg PO DAILY [facility] Last Admin: 06/11/18 11:53 Dose: 48 mg Fluticasone Propionate (Flonase) 1 actuation NS DAILY [facility] Last Admin: 06/10/18 09:21 Dose: 1 spr Gabapentin (Neurontin) 600 mg PO BID [facility]; Protocol Last Admin: 06/11/18 11:53 Dose: 600 mg Dextrose (Dextrose 5% In Water 1000 Ml) 1,000 mls @ 0 mls/hr IV .Q0M PRN; Protocol PRN Reason: Hypoglycemia Protocol Sodium Chloride (Sodium Chloride 0.45%) 1,000 mls @ 100 mls/hr IV .Q10H [facility] Last Admin: 06/11/18 05:00 Dose: 100 mls/hr Ceftriaxone Sodium (Rocephin 1 Gram Ivpb) 1 gm in 100 mls @ 100 mls/hr IVPB DAILY [facility]; Protocol Last Admin: 06/11/18 11:55 Dose: 100 mls/hr Insulin Detemir (Levemir) 45 unit SC HS [facility] Insulin Human Lispro (Humalog) 14 units SC AC [facility] Last Admin: 06/11/18 12:05 Dose: 14 u Insulin Human Lispro (Humalog Low) 0 units SC ACHS [facility]; Protocol Last Admin: 06/11/18 12:06 Dose: Not Given Ipratropium [place] (Atrovent) 0.5 mg IH Q8 PRN PRN Reason: Shortness of Breath Losartan Potassium (Cozaar) 12.5 mg PO DAILY [facility] Last Admin: 06/11/18 11:51 Dose: 12.5 mg Home Med - Chlorzoxazone [ Chlorzoxazone] 500 Mg 500 mg PO TID PRN PRN Reason: Muscle spasm Olopatadine HCl (Patanol 0.1% Opht Soln) 0 ml OU DAILY [facility] Last Admin: 06/10/18 09:21 Dose: 1 dose Ondansetron HCl (Zofran Inj) 4 mg IVP Q6H PRN PRN Reason: Nausea/Vomiting Last Admin: 06/08/18 07:40 Dose: 4 mg Pantoprazole Sodium (Protonix Ec Tab) 40 mg PO 0600 [facility] Last Admin: 06/11/18 05:58 Dose: 40 mg Rivaroxaban (Xarelto) 20 mg PO DAILY [facility]; Protocol Last Admin: 06/11/18 11:53 Dose: 20 mg - Labs Labs: 06/11/18 07:00 06/11/18 07:00 PT 14.6 SECONDS (9.4-12.5) H 06/07/18 15:40 INR 1.27 06/07/18 15:40 APTT 27.2 Seconds (25.1-36.5) 06/07/18 15:40 - Constitutional Appears: Non-toxic, No Acute Distress - Head Exam Head Exam: ATRAUMATIC, NORMAL INSPECTION - Eye Exam Eye Exam: EOMI, Normal appearance, PERRL - ENT Exam ENT Exam: Mucous Membranes Moist, Normal Exam - Neck Exam Neck Exam: Full ROM, Normal Inspection - Respiratory Exam Respiratory Exam: Clear to Ausculation Bilateral, NORMAL BREATHING PATTERN - Cardiovascular Exam Cardiovascular Exam: REGULAR RHYTHM, +S1, +S2 - GI/Abdominal Exam GI & Abdominal Exam: Soft, Normal Bowel Sounds. absent: Tenderness Additional comments: obese - Rectal Exam Rectal Exam: Deferred - Extremities Exam Extremities Exam: Normal Inspection. absent: Pedal Edema - Back Exam Back Exam: NORMAL INSPECTION - Neurological Exam Neurological Exam: Alert, Awake, CN II-XII Intact, Normal Gait, Oriented x3 Neuro motor strength exam: Left Upper Extremity: 5, Right Upper Extremity: 5, Left Lower Extremity: 5, Right Lower Extremity: 5 - Psychiatric Exam Psychiatric exam: Normal Affect, Normal Mood - Skin Skin Exam: Dry, Intact, Normal Color, Warm Assessment and Plan - Assessment and Plan (Free Text) Assessment: Patient is a 48 yo AA female who presented to the ED with abdominal pain, nausea, and vomiting x2 days. Patient was found to be in DKA. She was initially managed in the ICU on an insulin drip. Anion gap has closed, and glucose is improving. Patient is now on med/surg. Plan: DKA, resolved- T2DM poorly controlled - HgbA1c 14.9 - Anion gap closed (11) - BG 200s - Hypoglycemia protocol - Levemir 45 u QHS - Lispro 14 u ACHS - Lispro ISS low - Zofran 4 mg IV Q6H PRN for nausea, vomiting - Gabapentin 600 mg PO BID - Endocrinology consulted (Cam) - Registered Nurse Cardiac consult - coding educator consulted Pyelonephritis with E. coli Bacteremia - CT A/P: Upper tract inflammatory changes bilaterally left greater than right likely representing pyelonephritis. No evidence of obstructive uropathy. - Leukocytosis stable (14.5) - Afebrile - Urine Cx negative - Blood Cx 2/2 E. coli - Discontinue Zosyn 3.375 g IV Q6H - Rocephin 1 g IV daily (started 06/07) - ID consulted (Dr. Sloan) Systolic CHF- previously on Life Vest - Troponin <0.1, 0.1, 0.3 - EKG: sinus tachycardia (HR 149), QTc 418, lateral ischemic changes (ST depression) - Echo: EF 40-45%, mild global hypokinesis - Digoxin 0.25 mg PO daily - Coreg 6.25 mg PO BID - Start Losartan 12.5 mg PO daily - Cardiology consulted (Dr. Schwartz) H/o Afib - Xarelto 20 mg PO daily - Cardiology consulted (Dr. Schwartz) Dyslipidemia - TG 356, choles 109, LDL <30, HDL 18 - Lipitor 20 mg PO QHS - Fenofibrate 48 mg PO daily H/o Asthma - Albuterol Q8H PRN - Atrovent Q8H PRN - Brovana Q12H - Pulmicort BID IVF: not indicated Diet: heart healthy GI ppx: Protonix 40 mg PO daily VTE ppx: Xarelto 20 mg PO daily, SCDs Code status: full code Case was discussed with attending, Dr. Haines. <Hernandez Haines - Last Filed: 06/13/18 07:52> Objective - Vital Signs/Intake and Output Vital Signs (last 24 hours): Temp Pulse Resp BP Pulse Ox 98.2 F 82 20 139/88 99 06/12/18 08:35 06/12/18 09:23 06/12/18 08:35 06/12/18 09:23 06/12/18 08:35 - Labs Labs: 06/12/18 06:30 06/12/18 06:30 PT 14.6 SECONDS (9.4-12.5) H 06/07/18 15:40 INR 1.27 06/07/18 15:40 APTT 27.2 Seconds (25.1-36.5) 06/07/18 15:40 Attending/Attestation - Attestation I have personally seen and examined this patient.: Yes I have fully participated in the care of the patient.: Yes I have reviewed all pertinent clinical information, including history, physical exam and plan: Yes Notes (Text): 06/13/18 07:45 Attending note ; Patient seen and examined with resident. 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 1. DKA. Resolved. Initially treated with insulin drip. Endocrinology evaluation appreciated . Continue Levemir . Adjust as needed . Dietary education given .needs close follow-up of fingerstick as outpatient . Continue gabapentin. HgbA1C 14.9. Continue to monitor accuchecks. 2. Gram negative bacteremia secondary to E.coli. Urine culture with no growth. Blood cultures positive to Ecoli. Discussed with Dr. Luther MELENDREZ. started on IV Rocephin. Currently patient is afebrile and nontoxic. Will discuss with ID for duration of antibiotics. Leukocytosis resoivong. CT abd/pelvis per radiologist showed upper tract inflammatory changes bilaterally left greater than right likely representing pyelonephritis; no evidence of obstructive uropathy. 3. Chronic systolic CHF. Cardiology following, recommendations appreciated. Continue digoxin and coreg. 2d echo per unit clerk shows the left ventricle is normal size, there is normal left ventricular wall thickness, left ventricle systolic function is mildly impaired, EF is 40-45%, mild global hypokinesis. 4. History of left ventricular apical thrombus. Continue Xarelto. Cardiology following, recommendations appreciated 5. Dyslipidemia. Continue fenofibrate. Continue Lipitor. Diet and exercise discussed with patient. 6. Obesity; diet, exercise and weight reduction advised. Needs outpatient follow-up to rule out obstructive sleep apnea. Patient follows up with PMD Dr. Miles. Patient also follows up with multiple consultants including cardiology Dr. Lofton, rhematology, pulmonology,GI as per her PMD recommendations. Case was discussed in detail with the patient regarding current diagnosis and treatment plan. All questions answered.
--- NOTE | 2018-06-11 19:04 | CP.PCM.PN ---
Subjective - Date & Time of Evaluation Date of Evaluation: 06/11/18 Time of Evaluation: 17:45 - Subjective Subjective: Infectious Disease Follow Up: June 11, 2018 48 yo female with PMHx of DM2, CHF (last EF 20%), CAD, SLE, and pituitary tumor presented to ED last night with worsening abdominal pain, nausea, and vomiting. Patient states that she had not been feeling well the last several days and had not taken her insulin or any of her other medications. She was subsequently found to have DKA and pyelonephritis L > R in ED and was admitted to ICU for management. Currently, she is still having nausea and abdominal pain but it has improved. She also admits to still feeling chills and a headache but denies vision changes, CP, SOB, or cough. Started on IV Vancomycin and Zosyn for antibiotic coverage. The patient is showing gram negative rods on both blood cultures. Identification of E. coli. Deescalated to Rocephin alone. Patient does not have chills today. Transferred to regular medical floor. Objective - Vital Signs/Intake and Output Vital Signs (last 24 hours): Temp Pulse Resp BP Pulse Ox 98.2 F 85 20 124/72 99 06/11/18 06:00 06/11/18 06:00 06/11/18 06:00 06/11/18 06:00 06/11/18 06:00 Intake and Output: 06/11/18 06/11/18 06:59 18:59 Intake Total 1200 Balance 1200 - Medications Medications: Current Medications Acetaminophen (Tylenol 325mg Tab) 650 mg PO Q6H PRN PRN Reason: Pain, moderate (4-7) Last Admin: 06/11/18 02:24 Dose: 650 mg Albuterol Sulfate (Albuterol 0.083% Inhal Aan (2.5 Mg/3 Ml) Ud) 2.5 mg IH Q8 PRN PRN Reason: Shortness of Breath Arformoterol Tartrate (Brovana) 15 mcg IH [id number] [facility] Last Admin: 06/11/18 08:37 Dose: 15 mcg Atorvastatin Calcium (Lipitor) 20 mg PO HS [facility] Last Admin: 06/10/18 22:03 Dose: 20 mg Budesonide (Pulmicort Respules) 0.5 mg IH BID [facility] Last Admin: 06/11/18 08:38 Dose: 0.5 mg Carvedilol (Coreg) 6.25 mg PO BID [facility] Last Admin: 06/11/18 18:11 Dose: 6.25 mg Colchicine (Colocrys) 0.6 mg PO DAILY [facility] Last Admin: 06/11/18 11:51 Dose: 0.6 mg Dextrose (Dextrose 50% Inj) 0 ml IV STAT PRN; Protocol PRN Reason: Hypoglycemia Protocol Digoxin (Lanoxin) 0.25 mg PO 1400 [facility] Last Admin: 06/11/18 14:07 Dose: 0.25 mg Ergocalciferol (Drisdol 50,000 Intl Units Cap) 1 cap PO Q7D [facility] Fenofibrate (Tricor) 48 mg PO DAILY [facility] Last Admin: 06/11/18 11:53 Dose: 48 mg Fluticasone Propionate (Flonase) 1 actuation NS DAILY [facility] Last Admin: 06/10/18 09:21 Dose: 1 spr Gabapentin (Neurontin) 600 mg PO BID [facility]; Protocol Last Admin: 06/11/18 18:20 Dose: 600 mg Dextrose (Dextrose 5% In Water 1000 Ml) 1,000 mls @ 0 mls/hr IV .Q0M PRN; Protocol PRN Reason: Hypoglycemia Protocol Sodium Chloride (Sodium Chloride 0.45%) 1,000 mls @ 100 mls/hr IV .Q10H [facility] Last Admin: 06/11/18 05:00 Dose: 100 mls/hr Ceftriaxone Sodium (Rocephin 1 Gram Ivpb) 1 gm in 100 mls @ 100 mls/hr IVPB DAILY [facility]; Protocol Last Admin: 06/11/18 11:55 Dose: 100 mls/hr Insulin Detemir (Levemir) 45 unit SC HS [facility] Insulin Human Lispro (Humalog) 14 units SC AC [facility] Last Admin: 06/11/18 18:12 Dose: 14 u Insulin Human Lispro (Humalog Low) 0 units SC ACHS [facility]; Protocol Last Admin: 06/11/18 18:13 Dose: Not Given Ipratropium [place] (Atrovent) 0.5 mg IH Q8 PRN PRN Reason: Shortness of Breath Losartan Potassium (Cozaar) 12.5 mg PO DAILY [facility] Last Admin: 06/11/18 11:51 Dose: 12.5 mg Home Med - Chlorzoxazone [ Chlorzoxazone] 500 Mg 500 mg PO TID PRN PRN Reason: Muscle spasm Olopatadine HCl (Patanol 0.1% Opht Soln) 0 ml OU DAILY [facility] Last Admin: 06/10/18 09:21 Dose: 1 dose Ondansetron HCl (Zofran Inj) 4 mg IVP Q6H PRN PRN Reason: Nausea/Vomiting Last Admin: 06/08/18 07:40 Dose: 4 mg Pantoprazole Sodium (Protonix Ec Tab) 40 mg PO 0600 [facility] Last Admin: 06/11/18 05:58 Dose: 40 mg Rivaroxaban (Xarelto) 20 mg PO DAILY [facility]; Protocol Last Admin: 06/11/18 11:53 Dose: 20 mg - Labs Labs: 06/11/18 07:00 06/11/18 07:00 PT 14.6 SECONDS (9.4-12.5) H 06/07/18 15:40 INR 1.27 06/07/18 15:40 APTT 27.2 Seconds (25.1-36.5) 06/07/18 15:40 - Constitutional Appears: Non-toxic, No Acute Distress - Head Exam Head Exam: ATRAUMATIC, NORMOCEPHALIC - Eye Exam Eye Exam: EOMI, PERRL Pupil Exam: NORMAL ACCOMODATION, PERRL - ENT Exam ENT Exam: Mucous Membranes Moist, Normal External Ear Exam, TM's Normal Bilaterally - Neck Exam Neck Exam: Full ROM, Normal Inspection - Respiratory Exam Respiratory Exam: Clear to Ausculation Bilateral, NORMAL BREATHING PATTERN. absent: Rales, Rhonchi, Wheezes - Cardiovascular Exam Cardiovascular Exam: REGULAR RHYTHM, RRR, +S1, +S2 - GI/Abdominal Exam GI & Abdominal Exam: Soft, Normal Bowel Sounds. absent: Distended, Tenderness - Extremities Exam Extremities Exam: Full ROM, Normal Inspection - Neurological Exam Neurological Exam: Alert, Awake, CN II-XII Intact, Oriented x3 - Psychiatric Exam Psychiatric exam: Normal Affect, Normal Mood - Skin Skin Exam: Intact, Normal Color Assessment and Plan - Assessment and Plan (Free Text) Assessment: 48 yo female with UTI, bacteremia, septicemia, DM, and DKA on presentation. Gram negative rods on all blood cultures drawn at time of admission. Full identification and specificities pending. Continue on IV Zosyn for antibiotic coverage. Supportive care. May need stronger antibiotic coverage depending on results of the blood cultures. Appears to be slowly improving compared to admission. The patient remains tachycardic at this time. Gram negative rods on blood cultures identified as E. coli sensitive to [place]. Supportive care. Maintain patient on IV Rocephin. Needs 14 days of treatment in total. Montior renal function as currently the patient's renal function is borderline. Thank you for allowing me to participate in the care of the patient, we will follow with you.
--- NOTE | 2018-06-11 22:29 | PN ---
DATE: 06/11/2018 SUBJECTIVE: The patient denies chest pain or abdominal pain. Shortness of breath is improved. PHYSICAL EXAMINATION: VITAL SIGNS: Blood pressure 124/72, heart rate 85, temperature 98.2, respirations 20. HEENT: Pale conjunctivae. CHEST: Clear. HEART: S1, S2 regular. EXTREMITIES: Improved leg edema. LABORATORY DATA: Hemoglobin and hematocrit 10.1 and 30.5. White count 14.5 and platelet count 335,000. SMA-7: Sodium 136, potassium 3.4, chloride 106, CO2 of 25, glucose 161, BUN 12, creatinine 0.8. ASSESSMENT: 1. Cardiomyopathy. 2. Escherichia coli bacteremia. 3. Bilateral pyelonephritis. 4. History of left ventricular apical thrombus. RECOMMENDATIONS: Continue Lanoxin 0.25 mg daily, Neurontin 600 mg twice a day, Rocephin 1 g intravenously daily, TriCor 48 mg once a day, Xarelto 20 mg orally daily, Cozaar 12.5 mg daily, Coreg 6.25 mg twice a day. Yesterday's digoxin level was 0.5. Jason Schwartz MD
[2018-06-12] MEDS: Pantoprazole 40 mg EC Tab PO SCH (05:31)
[2018-06-12 07:21] LABS: BASO # 0.03 K/mm3 (0.0-2.0); BASO % 0.2 % (0.0-3.0); EOS # 0.1 (0.0-0.7); EOS % 0.8 % (1.5-5.0); GRAN # 9.36 (1.4-6.5); HEMOGLOBIN 9.3 g/dL (12.0-16.0); LYMPH # 4.5 (1.2-3.4); LYMPH % 28.3 % (22.0-35.0); MEAN CELL VOLUME 76.8 fl (80.0-105.0); MEAN CORPUSCULAR HEMOGLOBIN 25.1 pg (25.0-35.0); MEAN CORPUSCULAR HGB CONC 32.7 g/dl (31.0-37.0); MEAN PLATELET VOLUME 9.9 fl (7.0-11.0); MONO # 1.9 (0.1-0.6); MONO % 11.7 % (1.0-6.0); RBC 3.7 10^6/uL (3.5-6.1); RED CELL DISTRIBUTION WIDTH 15.2 % (11.5-14.5); WHITE BLOOD COUNT 15.9 10^3/ul (4.5-11.0)
[2018-06-12 07:36] LABS: ALB/GLOB RATIO 0.8 (1.1-1.8); ALBUMIN 2.7 g/dL (3.0-4.8); ALT/SGPT 17 U/L (7-56); AST/SGOT 28 U/L (14-36); BLOOD UREA NITROGEN 8 mg/dL (7-21); CALCIUM 8.7 mg/dL (8.4-10.5); GFR NON-AFRICAN AMERICAN > 60
[2018-06-12] MEDS: Arformoterol 15 mcg/2 ml Inh Sol IH SCH (08:04)
[2018-06-12] MEDS: Budesonide 0.5 mg/2 ml Inhal Susp UD IH SCH (08:04)
[2018-06-12] MEDS: Insulin Lispro (humaLOG) LOW Coverage SC SCH ×2 (08:30→12:42)
[2018-06-12 08:35] VITALS: BP 139/88; TEMP 98.2; O2SAT 99
[2018-06-12] MEDS ORDERED: Potassium Chloride 20 mEq ER Tab PO ONE ×2 (08:58)
[2018-06-12] MEDS: Insulin Lispro 1 UNITS/0.01 ML SC SCH ×2 (09:25→12:41)
[2018-06-12] MEDS: cefTRIAXone 1 gm 1 GM/100 ML BAG IVPB SCH (09:26)
[2018-06-12] MEDS: Fluticasone Nasal 50 mcg/Spray NS SCH ×2 (09:34→10:00)
[2018-06-12] MEDS: Olopatadine 0.1% Opht Sol OU SCH ×2 (09:34→10:00)
[2018-06-12 09:36] VITALS: PULSE 82
--- NOTE | 2018-06-12 14:18 | CP.PCM.DIS ---
<Baylee Aguilar - Last Filed: 06/12/18 14:11> Provider - Provider Date of Admission: 06/07/18 18:37 Attending physician: Hernandez Haines MD Primary care physician: Dr. Ben Miles Consults: ICU Endocrinology ID Cardiology Time Spent in preparation of Discharge (in minutes): 45 Diagnosis - Discharge Diagnosis (1) Diabetic keto-acidosis Status: Acute Priority: High (2) Pyelonephritis Status: Acute Priority: High (3) Bacteremia, escherichia coli Status: Acute Priority: High (4) T2DM (type 2 diabetes mellitus) Status: Chronic Priority: Medium Hospital Course - Lab Results Lab Results: Micro Results 06/07/18 16:00 Blood Blood Culture - Final Escherichia Coli 06/07/18 16:00 Blood Gram Stain - Final 06/07/18 15:40 Blood Blood Culture - Final Escherichia Coli 06/07/18 15:40 Blood Gram Stain - Final 06/07/18 23:03 Nose MRSA Culture (Admit) - Final MRSA NOT DETECTED 06/07/18 16:10 Urine Urine Culture - Final No Growth (<1,000 CFU/ML) Most Recent Lab Values WBC 15.9 10^3/ul (4.5-11.0) H 06/12/18 06:30 RBC 3.70 10^6/uL (3.5-6.1) 06/12/18 06:30 Hgb 9.3 g/dL (12.0-16.0) L 06/12/18 06:30 Hct 28.4 % (36.0-48.0) L 06/12/18 06:30 MCV 76.8 fl (80.0-105.0) L 06/12/18 06:30 MCH 25.1 pg (25.0-35.0) 06/12/18 06:30 MCHC 32.7 g/dl (31.0-37.0) 06/12/18 06:30 RDW 15.2 % (11.5-14.5) H 06/12/18 06:30 Plt Count 341 10^3/uL (120.0-450.0) 06/12/18 06:30 MPV 9.9 fl (7.0-11.0) 06/12/18 06:30 Gran % 59.0 % (50.0-68.0) 06/12/18 06:30 Lymph % (Auto) 28.3 % (22.0-35.0) 06/12/18 06:30 Zap[place] % (Auto) 11.7 % (1.0-6.0) H 06/12/18 06:30 Eos % (Auto) 0.8 % (1.5-5.0) L 06/12/18 06:30 Baso % (Auto) 0.2 % (0.0-3.0) 06/12/18 06:30 Gran # 9.36 (1.4-6.5) H 06/12/18 06:30 Lymph # (Auto) 4.5 (1.2-3.4) H 06/12/18 06:30 Zap[place] # (Auto) 1.9 (0.1-0.6) H 06/12/18 06:30 Eos # (Auto) 0.1 (0.0-0.7) 06/12/18 06:30 Baso # (Auto) 0.03 K/mm3 (0.0-2.0) 06/12/18 06:30 Neutrophils % (Manual) 76 % (50.0-70.0) H 06/07/18 15:40 Band Neutrophils % 1 % (0-2) 06/07/18 15:40 Lymphocytes % (Manual) 19 % (22.0-35.0) L 06/07/18 15:40 Monocytes % (Manual) 3 % (1.0-6.0) 06/07/18 15:40 Metamyelocytes % 1 % 06/07/18 15:40 Platelet Evaluation Normal (NORMAL) 06/07/18 15:40 Large Platelets Present 06/07/18 15:40 PT 14.6 SECONDS (9.4-12.5) H 06/07/18 15:40 INR 1.27 06/07/18 15:40 APTT 27.2 Seconds (25.1-36.5) 06/07/18 15:40 pO2 88 mm/Hg (30-55) H 06/07/18 18:55 VBG pH 7.32 (7.32-7.43) 06/07/18 18:55 VBG pCO2 39.0 (40-60) L 06/07/18 18:55 VBG HCO3 20.1 mmol/l (21-28) L 06/07/18 18:55 VBG Total CO2 21.3 mmol.L (22-28) L 06/07/18 18:55 VBG O2 Sat (Calc) 98.5 % (40-65) H 06/07/18 18:55 VBG Base Excess -5.6 mmol/L (0.0-2.0) L 06/07/18 18:55 VBG Potassium 5.3 mmol/L (3.6-5.2) H 06/07/18 18:55 Sodium 132.0 mmol/L (132-148) 06/07/18 18:55 Chloride 96.0 mmol/L (98-107) L 06/07/18 18:55 Glucose 671 mg/dl (65-105) H* 06/07/18 18:55 Lactate 3.5 mmol/L (0.7-2.1) H 06/07/18 18:55 FiO2 21.0 % 06/07/18 18:55 Sodium 138 mmol/L (132-148) 06/12/18 06:30 Potassium 3.3 mmol/L (3.6-5.0) L 06/12/18 06:30 Chloride 106 mmol/L (98-107) 06/12/18 06:30 Carbon Dioxide 26 mmol/L (21-33) 06/12/18 06:30 Anion Gap 9 (10-20) L 06/12/18 06:30 BUN 8 mg/dL (7-21) 06/12/18 06:30 Creatinine 0.8 mg/dl (0.7-1.2) 06/12/18 06:30 Est GFR ( Amer) > 60 06/12/18 06:30 Est GFR (Non-Af Amer) > 60 06/12/18 06:30 POC Glucose (mg/dL) 231 mg/dL (65-110) H 06/12/18 07:28 Random Glucose 217 mg/dL (70-110) H 06/12/18 06:30 Hemoglobin A1c 14.9 % (4.2-6.5) H D 06/08/18 05:30 Calcium 8.7 mg/dL (8.4-10.5) 06/12/18 06:30 Phosphorus 2.7 mg/dL (2.5-4.5) 06/12/18 06:30 Magnesium 1.9 mg/dL (1.7-2.2) 06/12/18 06:30 Total Bilirubin 0.6 mg/dL (0.2-1.3) 06/12/18 06:30 AST 28 U/L (14-36) 06/12/18 06:30 ALT 17 U/L (7-56) 06/12/18 06:30 Alkaline Phosphatase 190 U/L (38-126) H 06/12/18 06:30 Troponin I 0.03 ng/mL D 06/08/18 02:00 NT-Pro-B Natriuret Pep 426 pg/mL (0-450) 06/07/18 15:40 Total Protein 6.2 g/dL (5.8-8.3) 06/12/18 06:30 Albumin 2.7 g/dL (3.0-4.8) L 06/12/18 06:30 Globulin 3.5 gm/dL 06/12/18 06:30 Albumin/Globulin Ratio 0.8 (1.1-1.8) L 06/12/18 06:30 Triglycerides 356 mg/dL (35-160) H 06/08/18 05:30 Cholesterol 108 mg/dL (130-200) L 06/08/18 05:30 LDL Cholesterol Direct < 30 mg/dL (0-129) 06/08/18 05:30 HDL Cholesterol 18 mg/dL (29-60) L 06/08/18 05:30 Lipase 20 U/L (23-300) L 06/08/18 05:30 TSH 3rd Generation 0.37 mIU/mL (0.46-4.68) L 06/08/18 05:30 Cortisol AM Sample 35.8 ug/dL (4.46-22.7) H 06/08/18 05:30 Venous Blood Potassium 5.3 mmol/L (3.6-5.2) H 06/07/18 18:55 Urine Color Straw (YELLOW) 06/07/18 16:10 Urine Appearance Sl cloudy (CLEAR) 06/07/18 16:10 Urine pH 6.0 (4.7-8.0) 06/07/18 16:10 Ur Specific [place] 1.010 (1.005-1.035) 06/07/18 16:10 Urine Protein 30 mg/dL (<30 mg/dL) H 06/07/18 16:10 Urine Glucose (UA) >=1000 mg/dL (NEGATIVE) 06/07/18 16:10 Urine Ketones 40 mg/dL (NEGATIVE) H 06/07/18 16:10 Urine Blood Large (NEGATIVE) H 06/07/18 16:10 Urine Nitrate Negative (NEGATIVE) 06/07/18 16:10 Urine Bilirubin Negative (NEGATIVE) 06/07/18 16:10 Urine Urobilinogen 0.2 E.U./dL (<1 E.U./dL) 06/07/18 16:10 Ur Leukocyte Esterase Negative Rafy/uL (NEGATIVE) 06/07/18 16:10 Urine RBC 2 - 5 /hpf (0-2) 06/07/18 16:10 Urine WBC 5 - 10 /hpf (0-6) 06/07/18 16:10 Ur Epithelial Cells 0 - 2 /hpf (0-5) 06/07/18 16:10 Urine Bacteria Trace (NEG) 06/07/18 16:10 Urine Other Trichomonas 06/07/18 16:10 Digoxin 0.5 ng/mL (0.8-2.0) L 06/10/18 08:00 - Hospital Course Hospital Course: Pt is a 48 year old female with a history of T2DM on insulin, CHF (EF 20%), CAD (no stents), SLE, Pituitary tumor, and asthma who presented to the ED on 06/07/2018 after a 2 day history of abdominal pain, nausea, and vomiting. Patient was found to be in DKA with glucose between 400-500, ketonuria, and objectively tachycardic. She was placed in the ICU and started on an insulin drip. She was also found to have hyponatremia and hyperkalemia, as well as pyelonephritis on CT. Blood cultures revealed E. coli bacteremia and patient was treated with IV abx. Labs revealed leukocytosis and hypertriglyceridemia. During her hospital course, she was treated with IV Rocephin. An attempt at midline placement bedside was made, but was unsuccessful following multiple attempts and subsequent patient refusal. Patient is afebrile, and will be switched to PO Keflex for 10 days as per ID. Endocrinology was consulted, and changed the patient's insulin regimen to basal and mealtime. Upon discharge, patient's abdominal pain, nausea, and vomiting resolved. She was tolerating PO intake. She was afebrile and tachycardia resolved. Discharge Exam - Head Exam Head Exam: ATRAUMATIC, NORMOCEPHALIC - Eye Exam Eye Exam: EOMI, Normal appearance, PERRL - ENT Exam ENT Exam: Mucous Membranes Moist, Normal Exam - Neck Exam Neck exam: Normal Inspection - Respiratory Exam Respiratory Exam: Clear to PA & Lateral, NORMAL BREATHING PATTERN, UNREMARKABLE - Cardiovascular Exam Cardiovascular Exam: REGULAR RHYTHM, +S1, +S2 - GI/Abdominal Exam GI & Abdominal Exam: Normal Bowel Sounds, Soft, Unremarkable. absent: Tenderness Additional comments: obese - Rectal Exam Rectal Exam: Deferred - Extremities Exam Extremities exam: normal inspection - Back Exam Back exam: NORMAL INSPECTION - Neurological Exam Neurological exam: Alert, CN II-XII Intact, Normal Gait, Oriented x3 - Psychiatric Exam Psychiatric exam: Normal Affect, Normal Mood - Skin Skin Exam: Dry, Intact, Normal Color, Warm Discharge Plan - Discharge Medications Prescriptions: Cephalexin [cephalexin] 500 mg PO TID 10 Days cap Fenofibrate [Tricor] 48 mg PO DAILY #30 tab Insulin Detemir [Levemir] 45 unit SC HS 30 Days unit Insulin Lispro [humALOG] 14 units SC AC 30 Days ml - Follow Up Plan Condition: IMPROVED Disposition: HOME/ ROUTINE Patient education suggested?: Yes Instructions: Sepsis (ED) Additional Instructions: You are being discharged from [facility] after being treated for uncontrolled diabetes (diabetic ketoacidosis) and kidney and blood infection (pyelonephritis and E. coli bacteremia). Please follow-up with your primary care provider, Dr. Miles, within 3-5 days of discharge. He will continue to manage your diabetes. Please follow-up with an infectious disease doctor, Dr. Sloan, within 1 week of discharge. You are being discharged with a prescription for Keflex (antibiotic) 500 mg. Please take 3 times per day for a total of 10 days. Take until all pills completed. You are being started on a new insulin regimen. Discontinue your home insulin. You will now take the following: Lispro (Humalog) 14 units 3 times per day, before each meal Levemir 45 units at bedtime It is very important that you take all medications as prescribed. If symptoms return, present to the nearest ED. Referrals: Ben Miles DO [Staff Provider] - Zen Sloan MD [Staff Provider] - <Hernandez Haines - Last Filed: 06/13/18 07:55> Provider - Provider Date of Admission: 06/07/18 18:37 Attending physician: Hernandez Haines MD Hospital Course - Lab Results Lab Results: Micro Results 06/07/18 16:00 Blood Blood Culture - Final Escherichia Coli 06/07/18 16:00 Blood Gram Stain - Final 06/07/18 15:40 Blood Blood Culture - Final Escherichia Coli 06/07/18 15:40 Blood Gram Stain - Final 06/07/18 23:03 Nose MRSA Culture (Admit) - Final MRSA NOT DETECTED 06/07/18 16:10 Urine Urine Culture - Final No Growth (<1,000 CFU/ML) Most Recent Lab Values WBC 15.9 10^3/ul (4.5-11.0) H 06/12/18 06:30 RBC 3.70 10^6/uL (3.5-6.1) 06/12/18 06:30 Hgb 9.3 g/dL (12.0-16.0) L 06/12/18 06:30 Hct 28.4 % (36.0-48.0) L 06/12/18 06:30 MCV 76.8 fl (80.0-105.0) L 06/12/18 06:30 MCH 25.1 pg (25.0-35.0) 06/12/18 06:30 MCHC 32.7 g/dl (31.0-37.0) 06/12/18 06:30 RDW 15.2 % (11.5-14.5) H 06/12/18 06:30 Plt Count 341 10^3/uL (120.0-450.0) 06/12/18 06:30 MPV 9.9 fl (7.0-11.0) 06/12/18 06:30 Gran % 59.0 % (50.0-68.0) 06/12/18 06:30 Lymph % (Auto) 28.3 % (22.0-35.0) 06/12/18 06:30 Zapata % (Auto) 11.7 % (1.0-6.0) H 06/12/18 06:30 Eos % (Auto) 0.8 % (1.5-5.0) L 06/12/18 06:30 Baso % (Auto) 0.2 % (0.0-3.0) 06/12/18 06:30 Gran # 9.36 (1.4-6.5) H 06/12/18 06:30 Lymph # (Auto) 4.5 (1.2-3.4) H 06/12/18 06:30 [place] # (Auto) 1.9 (0.1-0.6) H 06/12/18 06:30 Eos # (Auto) 0.1 (0.0-0.7) 06/12/18 06:30 Baso # (Auto) 0.03 K/mm3 (0.0-2.0) 06/12/18 06:30 Neutrophils % (Manual) 76 % (50.0-70.0) H 06/07/18 15:40 Band Neutrophils % 1 % (0-2) 06/07/18 15:40 Lymphocytes % (Manual) 19 % (22.0-35.0) L 06/07/18 15:40 Monocytes % (Manual) 3 % (1.0-6.0) 06/07/18 15:40 Metamyelocytes % 1 % 06/07/18 15:40 Platelet Evaluation Normal (NORMAL) 06/07/18 15:40 Large Platelets Present 06/07/18 15:40 PT 14.6 SECONDS (9.4-12.5) H 06/07/18 15:40 INR 1.27 06/07/18 15:40 APTT 27.2 Seconds (25.1-36.5) 06/07/18 15:40 pO2 88 mm/Hg (30-55) H 06/07/18 18:55 VBG pH 7.32 (7.32-7.43) 06/07/18 18:55 VBG pCO2 39.0 (40-60) L 06/07/18 18:55 VBG HCO3 20.1 mmol/l (21-28) L 06/07/18 18:55 VBG Total CO2 21.3 mmol.L (22-28) L 06/07/18 18:55 VBG O2 Sat (Calc) 98.5 % (40-65) H 06/07/18 18:55 VBG Base Excess -5.6 mmol/L (0.0-2.0) L 06/07/18 18:55 VBG Potassium 5.3 mmol/L (3.6-5.2) H 06/07/18 18:55 Sodium 132.0 mmol/L (132-148) 06/07/18 18:55 Chloride 96.0 mmol/L (98-107) L 06/07/18 18:55 Glucose 671 mg/dl (65-105) H* 06/07/18 18:55 Lactate 3.5 mmol/L (0.7-2.1) H 06/07/18 18:55 FiO2 21.0 % 06/07/18 18:55 Sodium 138 mmol/L (132-148) 06/12/18 06:30 Potassium 3.3 mmol/L (3.6-5.0) L 06/12/18 06:30 Chloride 106 mmol/L (98-107) 06/12/18 06:30 Carbon Dioxide 26 mmol/L (21-33) 06/12/18 06:30 Anion Gap 9 (10-20) L 06/12/18 06:30 BUN 8 mg/dL (7-21) 06/12/18 06:30 Creatinine 0.8 mg/dl (0.7-1.2) 06/12/18 06:30 Est GFR ( Amer) > 60 06/12/18 06:30 Est GFR (Non-Af Amer) > 60 06/12/18 06:30 POC Glucose (mg/dL) 238 mg/dL (65-110) H 06/12/18 11:27 Random Glucose 217 mg/dL (70-110) H 06/12/18 06:30 Hemoglobin A1c 14.9 % (4.2-6.5) H D 06/08/18 05:30 Calcium 8.7 mg/dL (8.4-10.5) 06/12/18 06:30 Phosphorus 2.7 mg/dL (2.5-4.5) 06/12/18 06:30 Magnesium 1.9 mg/dL (1.7-2.2) 06/12/18 06:30 Total Bilirubin 0.6 mg/dL (0.2-1.3) 06/12/18 06:30 AST 28 U/L (14-36) 06/12/18 06:30 ALT 17 U/L (7-56) 06/12/18 06:30 Alkaline Phosphatase 190 U/L (38-126) H 06/12/18 06:30 Troponin I 0.03 ng/mL D 06/08/18 02:00 NT-Pro-B Natriuret Pep 426 pg/mL (0-450) 06/07/18 15:40 Total Protein 6.2 g/dL (5.8-8.3) 06/12/18 06:30 Albumin 2.7 g/dL (3.0-4.8) L 06/12/18 06:30 Globulin 3.5 gm/dL 06/12/18 06:30 Albumin/Globulin Ratio 0.8 (1.1-1.8) L 06/12/18 06:30 Triglycerides 356 mg/dL (35-160) H 06/08/18 05:30 Cholesterol 108 mg/dL (130-200) L 06/08/18 05:30 LDL Cholesterol Direct < 30 mg/dL (0-129) 06/08/18 05:30 HDL Cholesterol 18 mg/dL (29-60) L 06/08/18 05:30 Lipase 20 U/L (23-300) L 06/08/18 05:30 TSH 3rd Generation 0.37 mIU/mL (0.46-4.68) L 06/08/18 05:30 Cortisol AM Sample 35.8 ug/dL (4.46-22.7) H 06/08/18 05:30 Venous Blood Potassium 5.3 mmol/L (3.6-5.2) H 06/07/18 18:55 Urine Color Straw (YELLOW) 06/07/18 16:10 Urine Appearance Sl cloudy (CLEAR) 06/07/18 16:10 Urine pH 6.0 (4.7-8.0) 06/07/18 16:10 Ur Specific [place] 1.010 (1.005-1.035) 06/07/18 16:10 Urine Protein 30 mg/dL (<30 mg/dL) H 06/07/18 16:10 Urine Glucose (UA) >=1000 mg/dL (NEGATIVE) 06/07/18 16:10 Urine Ketones 40 mg/dL (NEGATIVE) H 06/07/18 16:10 Urine Blood Large (NEGATIVE) H 06/07/18 16:10 Urine Nitrate Negative (NEGATIVE) 06/07/18 16:10 Urine Bilirubin Negative (NEGATIVE) 06/07/18 16:10 Urine Urobilinogen 0.2 E.U./dL (<1 E.U./dL) 06/07/18 16:10 Ur Leukocyte Esterase Negative Rafy/uL (NEGATIVE) 06/07/18 16:10 Urine RBC 2 - 5 /hpf (0-2) 06/07/18 16:10 Urine WBC 5 - 10 /hpf (0-6) 06/07/18 16:10 Ur Epithelial Cells 0 - 2 /hpf (0-5) 06/07/18 16:10 Urine Bacteria Trace (NEG) 06/07/18 16:10 Urine Other Trichomonas 06/07/18 16:10 Digoxin 0.5 ng/mL (0.8-2.0) L 06/10/18 08:00 Attending/Attestation - Attestation I have personally seen and examined this patient.: Yes I have fully participated in the care of the patient.: Yes I have reviewed all pertinent clinical information, including history, physical exam and plan: Yes Notes (Text): 06/13/18 07:53 Attending note ; Patient seen and examined with resident. 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 1. DKA. Resolved. Initially treated with insulin drip. Endocrinology evaluation appreciated . Continue Levemir . Adjust as needed . Dietary education given .needs close follow-up of fingerstick as outpatient . Continue gabapentin. HgbA1C 14.9. Continue to monitor accuchecks. 2. Gram negative bacteremia secondary to E.coli. Urine culture with no growth. Blood cultures positive to Ecoli. Discussed with Dr. Sloan ID. started on IV Rocephin. Currently patient is afebrile and nontoxic. Will discuss with ID for duration of antibiotics. Leukocytosis resoivong. Midline tried multiple times. Unsuccessful. Patient refused PICC line placement. Case discussed with ID in detail. Patient can be discharged home with by mouth Keflex for 10 days. Needs close outpatient follow-up. Currently patient is afebrile and nontoxic. CT abd/pelvis per radiologist showed upper tract inflammatory changes bilaterally left greater than right likely representing pyelonephritis; no evidence of obstructive uropathy. 3. Chronic systolic CHF. Cardiology following, recommendations appreciated. Continue digoxin and coreg. 2d echo per system support analyst shows the left ventricle is normal size, there is normal left ventricular wall thickness, left ventricle systolic function is mildly impaired, EF is 40-45%, mild global hypokinesis. 4. History of left ventricular apical thrombus. Continue Xarelto. Cardiology following, recommendations appreciated 5. Dyslipidemia. Continue fenofibrate. Continue Lipitor. Diet and exercise discussed with patient. 6. Obesity; diet, exercise and weight reduction advised. Needs outpatient follow-up to rule out obstructive sleep apnea. Patient follows up with PMD Dr. Miles. Patient also follows up with multiple consultants including cardiology Dr. Lofton, rhematology, pulmonology,GI as per her PMD recommendations. Case was discussed in detail with the patient regarding current diagnosis and treatment plan. All questions answered. Patient has multiple medical issues. Needs close follow-up with PMD and other consultants. 06/13/18 07:54
--- NOTE | 2018-06-12 17:01 | CP.PCM.PN ---
Subjective - Date & Time of Evaluation Date of Evaluation: 06/12/18 Time of Evaluation: 13:00 - Subjective Subjective: Infectious Disease Follow Up: June 12, 2018 48 yo female with PMHx of DM2, CHF (last EF 20%), CAD, SLE, and pituitary tumor presented to ED last night with worsening abdominal pain, nausea, and vomiting. Patient states that she had not been feeling well the last several days and had not taken her insulin or any of her other medications. She was subsequently found to have DKA and pyelonephritis L > R in ED and was admitted to ICU for management. Currently, she is still having nausea and abdominal pain but it has improved. She also admits to still feeling chills and a headache but denies vision changes, CP, SOB, or cough. Started on IV Vancomycin and Zosyn for antibiotic coverage. The patient is showing gram negative rods on both blood cultures. Identification of E. coli. Deescalated to Rocephin alone. Patient does not have chills today. Transferred to regular medical floor. Patient wants to go home today. Objective - Vital Signs/Intake and Output Vital Signs (last 24 hours): Temp Pulse Resp BP Pulse Ox 98.2 F 82 20 139/88 99 06/12/18 08:35 06/12/18 09:23 06/12/18 08:35 06/12/18 09:23 06/12/18 08:35 - Labs Labs: 06/12/18 06:30 06/12/18 06:30 PT 14.6 SECONDS (9.4-12.5) H 06/07/18 15:40 INR 1.27 06/07/18 15:40 APTT 27.2 Seconds (25.1-36.5) 06/07/18 15:40 - Constitutional Appears: Non-toxic, No Acute Distress - Head Exam Head Exam: ATRAUMATIC, NORMOCEPHALIC - Eye Exam Eye Exam: EOMI, PERRL Pupil Exam: NORMAL ACCOMODATION, PERRL - ENT Exam ENT Exam: Mucous Membranes Moist, Normal External Ear Exam, TM's Normal Bilaterally - Neck Exam Neck Exam: Full ROM, Normal Inspection - Respiratory Exam Respiratory Exam: Clear to Ausculation Bilateral, NORMAL BREATHING PATTERN. absent: Rales, Rhonchi, Wheezes - Cardiovascular Exam Cardiovascular Exam: REGULAR RHYTHM, RRR, +S1, +S2 - GI/Abdominal Exam GI & Abdominal Exam: Soft, Normal Bowel Sounds. absent: Distended, Tenderness - Extremities Exam Extremities Exam: Full ROM, Normal Inspection - Neurological Exam Neurological Exam: Alert, Awake, CN II-XII Intact, Oriented x3 - Psychiatric Exam Psychiatric exam: Normal Affect, Normal Mood - Skin Skin Exam: Intact, Normal Color Assessment and Plan - Assessment and Plan (Free Text) Assessment: 48 yo female with UTI, bacteremia, septicemia, DM, and DKA on presentation. Gram negative rods on all blood cultures drawn at time of admission. Full identification and specificities pending. Continue on IV Zosyn for antibiotic coverage. Supportive care. May need stronger antibiotic coverage depending on results of the blood cultures. Appears to be slowly improving compared to admission. The patient remains tachycardic at this time. Gram negative rods on blood cultures identified as E. coli sensitive to Rocpe[place]. Supportive care. Maintain patient on IV Rocephin. Needs 14 days of treatment in total. Can consider use of Keflex 500 mg TID for 10 days more if IV placement is an issue. Monitor renal function as currently the patient's renal function is borderline. Thank you for allowing me to participate in the care of the patient, we will follow with you.
--- NOTE | 2018-06-12 17:28 | PN ---
DATE: 06/12/2018 FOLLOWUP SUBJECTIVE: The patient denies any chest pain or abdominal pain. She denies any shortness of breath. Leg swelling has improved. PHYSICAL EXAMINATION: VITAL SIGNS: Blood pressure 139/88, heart rate 82, temperature 98.2, respirations 20. HEENT: Normocephalic. CHEST: Clear. HEART: S1 and S2 regular. EXTREMITIES: No edema. LABORATORY DATA: Today's hemoglobin and hematocrit 9.3 and 28.4, white count 15.9, platelet count 341,000. SMA-7: Sodium 138, potassium 3.3, chloride 106, CO2 of 26, glucose 217, BUN 8, creatinine 0.8. ASSESSMENT: 1. Hypertensive cardiomyopathy. 2. Morbid obesity. 3. Hypokalemia. 4. Bilateral pyelonephritis on admission. RECOMMENDATIONS: The patient can be discharged on her current medications including Coreg 6.25 mg twice a day, Cozaar 12.5 mg once a day, digoxin 0.25 mg orally daily, Lipitor 20 mg once a day and Xarelto 20 mg daily, Tricor 48 mg once a day. The patient did receive oral potassium chloride replacement today. She will follow up with her bio medical technician, Dr. Catherine at his [place] office. Jason Schwartz MD
--- NOTE | 2018-06-13 08:36 | PN ---
DATE: 06/12/2018 ENDO FOLLOWUP NOTE LOCATION: In room 370. SUBJECTIVE: This is a 48-year-old female with recent uncontrolled type 2 insulin-requiring diabetes, now being followed closely for metabolic management. Her glycemic levels are fluctuating, but improved as noted overnight with glucose levels ranging from mg/dL. Her latest chemistry showed a BUN of 8, sodium 138, potassium 3.3, chloride 106, CO2 of 26, glucose 217 and creatinine 6.8. So at this time, we will continue the same basal and bolus insulin regimen as given with a high dose of Levemir given as 46 units subcu at bedtime daily to start tonight. We will continue the Humalog given as 14 units subcu t.i.d. before meals as ordered. We will also continue low-dose correction scale using Humalog insulin as ordered. We will follow and advise accordingly. Aisha Purvis MD
[2018-06-15] MEDS ORDERED: Ergocalciferol 50,000 Intl Units Cap PO SCH (10:00)
== END 2018-06-12 13:46 | disposition home or self-care (01) | DRG 871 ==
LOC: ED 14:58 → ERH 18:37 → CCU 22:11 → 3RSO 06-10 02:10
PROVIDERS: ADMIT Internal Medicine; ATTEND Internal Medicine
PROC: 3E0F7GC Introduction of Other Therapeutic Substance into Respiratory Tract, Via Natural or Artificial Opening (ICD-10-PCS; principal; 2018-06-08)
DX: A41.51 Sepsis due to Escherichia coli [E. coli] (principal); E11.10 Type 2 diabetes mellitus with ketoacidosis without coma; E11.00 Type 2 diabetes mellitus with hyperosmolarity without nonketotic hyperglycemic-hyperosmolar coma (NKHHC); N13.6 Pyonephrosis; I50.22 Chronic systolic (congestive) heart failure; E87.1 Hypo-osmolality and hyponatremia; I43 Cardiomyopathy in diseases classified elsewhere; M32.9 Systemic lupus erythematosus, unspecified; I11.0 Hypertensive heart disease with heart failure; I25.10 Atherosclerotic heart disease of native coronary artery without angina pectoris; E87.5 Hyperkalemia; E86.0 Dehydration; E78.5 Hyperlipidemia, unspecified; M10.9 Gout, unspecified; J45.20 Mild intermittent asthma, uncomplicated; I48.91 Unspecified atrial fibrillation; E55.9 Vitamin D deficiency, unspecified; E11.51 Type 2 diabetes mellitus with diabetic peripheral angiopathy without gangrene; E11.42 Type 2 diabetes mellitus with diabetic polyneuropathy; E11.319 Type 2 diabetes mellitus with unspecified diabetic retinopathy without macular edema; E66.01 Morbid (severe) obesity due to excess calories; E87.6 Hypokalemia; Z79.01 Long term (current) use of anticoagulants; Z79.4 Long term (current) use of insulin